=== PATIENT | female | born 1980 | race Caucasian/White ===

== ENCOUNTER 2016-12-19 22:10 | Emergency (ER) | payer OTHER ==
[~2016-12-19] VITALS: Ht 167.6 cm; Wt 140.6 kg
[~2016-12-19 22:10] MED LIST: AMOXICILLIN875 MG PO; BACTRIM DS TAB1 EACH PO; DICLOXACILLIN500 MG PO; DIFLUCAN150 MG PO; GUAIATUSSIN AC118 ML PO; HUMULIN N100 UNIT/1 SQ; HUMULIN N100 UNIT/1 SUB-Q; LANTUS SOL100 UNIT/1 SUB-Q; LISINOPRIL10 MG PO; LOSARTAN-HCTZ1 EACH PO; METFORMIN HCL1000 MG PO; MOTRIN800 MG PO; NORCO 5-325 TA1 EACH PO; NOVOLOG FL100 UNIT/1 SUB-Q; NOVOLOG100 UNIT/1 SUB-Q; NOVOLOG100 UNITS/ IV; NOVOLOG100 UNITS/ SUB-Q; PERCOCET 5-3251 EACH PO; PREDNISONE20 MG PO; PRENATAL FORMU1 EACH PO; PROCARDIA XL30 MG PO; PROCARDIA XL60 MG PO; QVAR7.3 G1 INH; QVAR7.3 GM INH; TESSALON PERLE100 MG PO; VENTOLIN HFA18 GM INH; ZOFRAN ODT4 MG PO
== END 2016-12-19 23:33 | disposition home or self-care (01) ==
LOC: ED 22:10
DX: S00.83XA Contusion of other part of head, initial encounter (principal); I10 Essential (primary) hypertension; E11.9 Type 2 diabetes mellitus without complications; F41.9 Anxiety disorder, unspecified; Z98.51 Tubal ligation status; Z91.040 Latex allergy status; Z91.018 Allergy to other foods; Z88.8 Allergy status to other drugs, medicaments and biological substances; Z79.84 Long term (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 of oral hypoglycemic drugs; Z79.4 Long term (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; Z79.899 Other long term (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; W50.0XXA Accidental hit or strike by another person, initial encounter
CPT/HCPCS: 70150; 99283

== ENCOUNTER 2017-11-05 21:20 | Emergency (ER) | payer OTHER ==
[~2017-11-05] VITALS: Ht 167.6 cm; Wt 122.5 kg
[~2017-11-05 21:20] MED LIST changes: +TRAMADOL HCL50 MG PO
[2017-11-05] MEDS ORDERED: NORCO 5-325 TA1 EACH PO (23:15)
== END 2017-11-05 23:37 | disposition home or self-care (01) ==
LOC: ED 21:20
DX: N76.0 Acute vaginitis (principal); I10 Essential (primary) hypertension; E11.9 Type 2 diabetes mellitus without complications; E66.9 Obesity, unspecified; F41.9 Anxiety disorder, unspecified; Z88.8 Allergy status to other drugs, medicaments and biological substances; Z91.018 Allergy to other foods; Z91.040 Latex allergy status; Z79.899 Other long term (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; Z79.51 Long term (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 of inhaled steroids; Z79.4 Long term (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
CPT/HCPCS: 87529; 99283

== ENCOUNTER 2018-10-06 03:54 | Emergency (ER) | payer OTHER ==
[~2018-10-06] VITALS: Ht 167.6 cm; Wt 117.9 kg
--- OUTSIDE RECORDS SUMMARY | 2018-10-06 03:56 | XMS ---
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 [place] has no Care Guidelines for this patient. Cezar VISIT COUNT (12 MO.) 2 [facility] TOTAL 2 NOTE: Visits indicate total known visits. ED/C VISIT TRACKING (12 MO.) 10/06/2018 03:54 [facility] [place] TYPE: Emergency COMPLAINT: - L EAR PAIN 11/05/2017 21:22 [facility] [place] TYPE: Emergency COMPLAINT: - GENITAL ISSUE DIAGNOSES: - Pelvic and perineal pain - Anxiety disorder, unspecified - Acute vaginitis - Essential (primary) hypertension - Allergy to other foods - [facility] (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 of inhaled steroids - Obesity, unspecified - Latex allergy status - Type 2 diabetes mellitus without complications - Allergy status to other drugs, medicaments and biological substances status - [facility] (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 - Other assisted (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 INPATIENT VISIT TRACKING (12 MO.) No inpatient visits to display in this time frame [email or web address]
[2018-10-06] MEDS ORDERED: NEOMYCIN-POLYMY10 ML OTIC (04:14)
== END 2018-10-06 04:39 | disposition home or self-care (01) ==
LOC: ED 03:54
DX: H60.92 Unspecified otitis externa, left ear (principal); I10 Essential (primary) hypertension; E11.9 Type 2 diabetes mellitus without complications; F41.9 Anxiety disorder, unspecified; E66.9 Obesity, unspecified; Z88.8 Allergy status to other drugs, medicaments and biological substances; Z91.040 Latex allergy status; Z79.899 Other long term (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
CPT/HCPCS: 99282

== ENCOUNTER 2018-10-18 20:01 | Emergency (ER) | payer OTHER ==
[~2018-10-18] VITALS: Ht 167.6 cm; Wt 125.2 kg
[~2018-10-18 20:01] MED LIST changes: +NEOMYCIN-POLYMY10 ML OTIC
--- OUTSIDE RECORDS SUMMARY | 2018-10-18 20:04 | XMS ---
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 [place] has no Care Guidelines for this patient. Cezar VISIT COUNT (12 MO.) [address] [facility] [address] TOTAL 3 NOTE: Visits indicate total known visits. ED/C VISIT TRACKING (12 MO.) 10/18/2018 20:02 [facility] [place] TYPE: Emergency COMPLAINT: - SPIDER BITE/R ANKLE 10/06/2018 03:54 [facility] [place] TYPE: Emergency COMPLAINT: - L EAR PAIN DIAGNOSES: - Other oysterman (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 - Type 2 diabetes mellitus without complications - Unspecified otitis externa, left ear - Latex allergy status - Allergy status to other drugs, medicaments and biological substances status - Essential (primary) hypertension - Anxiety disorder, unspecified - Obesity, unspecified 11/05/2017 21:22 [facility] [place] TYPE: Emergency COMPLAINT: - GENITAL ISSUE DIAGNOSES: - Pelvic and perineal pain - Anxiety disorder, unspecified - Acute vaginitis - Essential (primary) hypertension - Allergy to other foods - oysterman (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 of inhaled steroids - Obesity, unspecified - Latex allergy status - Type 2 diabetes mellitus without complications - Allergy status to other drugs, medicaments and biological substances status - oysterman (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 - Other oysterman (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 INPATIENT VISIT TRACKING (12 MO.) No inpatient visits to display in this time frame [id number]
[2018-10-18] MEDS ORDERED: DOXYCYCLINE HY100 MG PO (20:37)
[2018-10-18] MEDS ORDERED: TRAMADOL HCL50 MG PO (20:37)
== END 2018-10-18 20:45 | disposition home or self-care (01) ==
LOC: ED 20:01
DX: M79.81 Nontraumatic hematoma of soft tissue (principal); L08.89 Other specified local infections of the skin and subcutaneous tissue; I10 Essential (primary) hypertension; E11.9 Type 2 diabetes mellitus without complications; E66.9 Obesity, unspecified; Z88.8 Allergy status to other drugs, medicaments and biological substances; Z91.040 Latex allergy status; Z79.899 Other long term (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
CPT/HCPCS: 10140; 99283-25

== ENCOUNTER 2019-04-05 16:43 | Emergency (ER) | payer OTHER ==
[~2019-04-05] VITALS: Ht 167.6 cm; Wt 125.2 kg
[~2019-04-05 16:43] MED LIST changes: +DOXYCYCLINE HY100 MG PO
--- OUTSIDE RECORDS SUMMARY | 2019-04-05 16:46 | XMS ---
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 Care History Medical/Surgical 10/19/2018 [facility] - Patient is currently established with [facility]. If patient is seen in the ED during business hours. Please contact CHWs at [facility]. Care Recommendation: This patient has had 5 or more Emergency Department visits in the last 12 months.\T\nbsp; Patient requires education on the scope and purpose of the ED as an acute care provider not a Primary Care Provider and should not be utilized for chronic conditions.\T\nbsp; These are guidelines and the provider should exercise clinical judgment when providing care. E.D. VISIT COUNT (12 MO.) 3 [facility] TOTAL 3 NOTE: Visits indicate total known visits. ED/UCC VISIT TRACKING (12 MO.) 04/05/2019 16:44 [facility] [place] TYPE: Emergency COMPLAINT: - SKIN ISSUES ON ABDOMEN 10/18/2018 20:02 [facility] [place] TYPE: Emergency COMPLAINT: - R ANKLE PN DIAGNOSES: - Essential (primary) hypertension - 1 Type 2 diabetes mellitus without complications - Nontraumatic hematoma of soft tissue - Other alf (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 - Obesity, unspecified - Oth local infections of the skin and subcutaneous tissue - Allergy status to oth drug/meds/biol subst status - Blister (nonthermal), right ankle, initial encounter - Latex allergy status 10/06/2018 03:54 [facility] [place] TYPE: Emergency COMPLAINT: - L EAR PAIN DIAGNOSES: - Other alf (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 - 1 Type 2 diabetes mellitus without complications - Unspecified otitis externa, left ear - Latex allergy status - Allergy status to oth drug/meds/biol subst status - Essential (primary) hypertension - Anxiety disorder, unspecified - Obesity, unspecified INPATIENT VISIT TRACKING (12 MO.) No inpatient visits to display in this time frame [email or web address]
[2019-04-05] MEDS ORDERED: LANTUS100 UNITS/ SUB-Q (19:16)
[2019-04-05] MEDS ORDERED: DOXYCYCLINE HY100 MG PO (19:18)
== END 2019-04-05 19:35 | disposition home or self-care (01) ==
LOC: ED 16:43
PROC: 0W9F0ZZ Drainage of Abdominal Wall, Open Approach (ICD-10-PCS; principal; 2019-04-05)
DX: L02.211 Cutaneous abscess of abdominal wall (principal); I10 Essential (primary) hypertension; E11.9 Type 2 diabetes mellitus without complications; Z91.048 Other nonmedicinal substance allergy status; Z91.018 Allergy to other foods; Z91.040 Latex allergy status; Z88.8 Allergy status to other drugs, medicaments and biological substances
CPT/HCPCS: 10060; 99283-25

== ENCOUNTER 2019-04-13 07:12 | Day surgery (SDC) | payer OTHER ==
[~2019-04-13] VITALS: Ht 167.6 cm; Wt 122.5 kg
[~2019-04-13 07:12] MED LIST changes: +GABAPENTIN300 MG PO; +HYDROCODON-ACE1 EAC8 PO; +LANTUS100 UNITS/ SUB-Q
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
--- NOTE | 2019-04-13 10:09 | NUR ---
ICED WATER GIVEN. CALL LIGHT WITHIN REACH. PATIENT PLACES GLASSES BACK ON HER FACE.
--- NOTE | 2019-04-13 12:06 | NUR ---
PATIENT IS UP TO THE BATHROOM. PATIENT AMBULATES WELL AND REPORTS SUCCESSFUL VOID. PATIENT IS BACK IN HER ROOM, SITTING ON THE EDGE OF THE BED. DISCHARGE INSTRUCTIONS ARE GIVEN AND SHE VERBALIZES UNDERSTANDING. PATIENT IS GETTING DRESSED. PATIENT'S MOTHER NOTIFIED SHE IS READY FOR HER TO COME PICK HER UP.
--- NOTE | 2019-04-13 12:11 | OR ---
[facility] [address] [place], [place] [address] Signed DATE OF OPERATION: 04/13/2019 SURGEON: Ben Damon MD PREOPERATIVE DIAGNOSIS: Right lower quadrant abdominal wall subcutaneous abscess. POSTOPERATIVE DIAGNOSIS: Right lower quadrant abdominal wall subcutaneous abscess. PROCEDURES PERFORMED: 1. Incision and drainage with sharp debridement of right lower quadrant abdominal wall abscess. 2. Deep wound cultures. ESTIMATED BLOOD LOSS: None. INDICATIONS: Heather is a 39-year-old, obese, uncontrolled diabetic female, who has decided to discontinue all her medications. 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 She went into emergency room recently and had a right lower quadrant abdominal wall overlying her large pannus, incised and drained by ER doctor. She was sent home on doxycycline. She had been to her primary care provider. There was black necrotic skin and continued thick malodorous fluid coming from the wound. Consequently, she was asked to see me expeditiously in my office. We added her on in that day. She had been trying to use Tylenol and ibuprofen for pain. It was okay during the day, but at night, she was having a hard time sleeping because of the pain. Consequently, we did give her some hydrocodone. I explained to Heather we would need to take her to the operating room to sharply debride all this tissue and take our deep wound cultures. The wound would of course be left open to heal secondarily. She is quite familiar with this whole process. There is risk to the surgery including, but not limited to bleeding, infection, scarring, change in contour of the skin as well as recurrent abscesses in the same or other locations. She had expressed understanding and wished to proceed. PROCEDURE NOTE: I met with Heather in our preop area. Her worked last night, so he was not able to come this morning. We both identified the abscess in the right lower quadrant and marked that appropriately. After this, Heather was taken in the operating room and Electronically Signed By: BEN DAMON MD 04/13/19 1211 PATIENT NAME: HEATHER KUO OPERATIVE REPORT DATE OF : 76 REPORT #: [id number] PHYSICIAN: BEN DAMON MD PCP: PRATEEK JENKINS MD REPORT IS CONFIDENTIAL AND NOT TO BE RELEASED WITHOUT AUTHORIZATION [facility] [address] [place], [place] [address] Signed placed in the supine position under general LMA anesthesia. She was given preoperative antibiotics along with subcutaneous heparin. SCDs were utilized. She was then prepped and draped in usual sterile fashion. We debrided all the black necrotic skin sharply with a #15 blade knife. Underneath, she had thick mucoid mildly malodorous fluid. We took deep wound cultures. The wound was irrigated and suctioned out until clear. She had nice granulation tissue except in the center of the wound. We debrided sharply with a 20 blade knife until that adipose tissue was removed and bleeding. We then injected local anesthetic in and around the wound. The wound was covered with saline moist gauze, dry 4 x 4 gauze, a dry ABD, and some tape. She was then transferred to her hospital bed and taken into recovery room in stable condition. Ben Damon MD ALB/MODL /[id number] cc: MD Prateek Alaniz MD Copies: BEN DAMON MD, MALCOLM MD ~ Electronically Signed By: BEN DAMON MD 04/13/19 1211 PATIENT NAME: HEATHER KUO OPERATIVE REPORT DATE OF : 76 REPORT #: [id number] PHYSICIAN: BEN DAMON MD PCP: PRATEEK JENKINS MD REPORT IS CONFIDENTIAL AND NOT TO BE RELEASED WITHOUT AUTHORIZATION
--- NOTE | 2019-04-13 13:40 | NUR ---
PT ALERT, ORIENTED AND PLEASANT. PT HAD FEW QUESTIONS, REQUESTED PRAYER. HER MOTHER WILL COME FOR HER. PT REQUESTED PRAYER, WILL FOLLOW NEEDED
== END 2019-04-13 12:10 | disposition home or self-care (01) ==
LOC: DS 07:12
PROVIDERS: Colon & Rectal Surgery
PROC: 0JB80ZZ Excision of Abdomen Subcutaneous Tissue and Fascia, Open Approach (ICD-10-PCS; principal; 2019-04-13 08:30)
DX: L02.211 Cutaneous abscess of abdominal wall (principal); I10 Essential (primary) hypertension; E66.9 Obesity, unspecified; J44.9 Chronic obstructive pulmonary disease, unspecified; E11.29 Type 2 diabetes mellitus with other diabetic kidney complication; K21.9 Gastro-esophageal reflux disease without esophagitis; M19.041 Primary osteoarthritis, right hand; M19.042 Primary osteoarthritis, left hand; F32.9 Major depressive disorder, single episode, unspecified; F41.9 Anxiety disorder, unspecified; G43.909 Migraine, unspecified, not intractable, without status migrainosus; Z91.040 Latex allergy status; Z91.19 Patient's noncompliance with other medical treatment and regimen; Z79.2 Long term (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 of antibiotics; Z79.899 Other long term (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
CPT/HCPCS: 00400; 87070; 87075; 87077; 87186; 87205; J1100; J1885; J1956; J2405; J2704; J3010; J7120

== ENCOUNTER 2019-12-16 14:26 | Emergency (ER) | payer OTHER ==
[~2019-12-16] VITALS: Ht 167.6 cm; Wt 136.1 kg
[~2019-12-16 14:26] MED LIST changes: +KEFLEX500 MG PO
--- OUTSIDE RECORDS SUMMARY | 2019-12-16 14:30 | XMS ---
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 - Has Care Guidelines CARE PROVIDERS SURENDRA JENKINS Internal Medicine 10/19/2018-Current PHONE: Unknown [place] has no Care Guidelines for this patient. Care History Medical/Surgical 09/26/2019 [facility] Patient stated she went to ED due to PCP canceling scheduled follow up visit on\T\nbsp;09/26/2019.\T\nbsp; Left voice mail for return call. 10/19/2018 [facility] - Patient is currently established with [facility]. If patient is seen in the ED during business hours. Please contact CHWs at [facility]. Care Recommendation: This patient has had 5 [...] care. E.D. VISIT COUNT (12 MO.) [address] [facility] TOTAL 3 NOTE: Visits indicate total known visits. ED/UCC VISIT TRACKING (12 MO.) 12/16/2019 14:27 [facility] [place] TYPE: Emergency COMPLAINT: - CHEST PAIN 09/24/2019 19:02 [facility] [place] TYPE: Emergency COMPLAINT: - SKIN PROBLEM,EAR PAIN DIAGNOSES: - Anxiety disorder, unspecified - Unspecified otitis externa, right ear - Allergy status to other drugs, medicaments and biological sub - Cutaneous abscess of neck - Personal history of nicotine dependence - Latex allergy status - Essential (primary) hypertension - Type 2 diabetes mellitus without complications - Cervicalgia 04/05/2019 16:[address] [facility] [place] TYPE: Emergency COMPLAINT: - SKIN ISSUES ON ABDOMEN DIAGNOSES: - Allergy to other foods - Type 2 diabetes mellitus without complications - Essential (primary) hypertension - Other nonmedicinal substance allergy status - Lower abdominal pain, unspecified - Allergy status to other drugs, medicaments and biological sub - Cutaneous abscess of abdominal wall - Latex allergy status INPATIENT VISIT TRACKING (12 MO.) No inpatient visits to display in this time frame [id number]
[2019-12-16] MEDS ORDERED: LOSARTAN-HCTZ1 EACH PO (16:24)
[2019-12-16] MEDS ORDERED: LISINOPRIL5 MG PO (16:27)
--- NOTE | 2019-12-17 12:57 | EKG ---
[facility] [address] [facility] [place] [address] Signed Normal sinus rhythm Normal ECG No previous ECGs available Confirmed by KAIT MERINO MD ([id number]) on 12/17/2019 12:57:12 PM Electronically Signed By: KAIT MERINO MD 12/17/19 1257 PATIENT NAME: WILBERT KUO Electrocardiogram DATE OF : 76 PHYSICIAN: KAIT MERINO MD REPORT #: [id number] REPORT IS CONFIDENTIAL AND NOT TO BE RELEASED WITHOUT AUTHORIZATION
== END 2019-12-16 16:45 | disposition home or self-care (01) ==
LOC: ED 14:26
DX: R07.89 Other chest pain (principal); I10 Essential (primary) hypertension; E11.65 Type 2 diabetes mellitus with hyperglycemia; Z87.891 Personal history of nicotine dependence; Z88.8 Allergy status to other drugs, medicaments and biological substances; Z91.040 Latex allergy status; Z91.018 Allergy to other foods; Z79.899 Other long term (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
CPT/HCPCS: 71045; 80053; 84484; 85025; 85379; 93005; 93010; 99285-25

== ENCOUNTER 2020-05-24 16:22 | Emergency (ER) | payer OTHER ==
[~2020-05-24] VITALS: Ht 167.6 cm; Wt 108.9 kg
[~2020-05-24 16:22] MED LIST changes: +LISINOPRIL5 MG PO; +PYRIDIUM100 MG PO
--- OUTSIDE RECORDS SUMMARY | 2020-05-24 16:24 | XMS ---
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 Care History Medical/Surgical 02/23/2020 [facility] Patient has long history of canceling/rescheduling Clinic appointments.\T\nbsp; Left voice mail to follow up with PCP Dr. Chapman 12/20/2019 [facility] Patient has follow up visit with Dr. Chapman on 01/02/2020 09/26/2019 [facility] Patient stated she went to ED due to PCP canceling scheduled follow up visit on\T\nbsp;09/26/2019.\T\nbsp; Left voice mail for return call. E.D. VISIT COUNT (12 MO.) 4 [facility]. TOTAL 4 NOTE: Visits indicate total known visits. ED/UCC VISIT TRACKING (12 MO.) 05/24/2020 16:[address] [facility] [place] TYPE: Emergency COMPLAINT: - BREAST PAIN/SWELLING 02/22/2020 15:40 [facility] [place] TYPE: Emergency COMPLAINT: - POSS UTI DIAGNOSES: - Anxiety disorder, unspecified - Type 2 diabetes mellitus without complications - Dysuria - Urinary tract infection, site not specified - Allergy status to other drugs, medicaments and biological substances - Latex allergy status - Essential (primary) hypertension - Localized edema - Other alf (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 - Obesity, unspecified 12/16/2019 14:27 [facility] [place] TYPE: Emergency COMPLAINT: - CHEST PAIN DIAGNOSES: - Allergy status to other drugs, medicaments and biological substances - Allergy to other foods - Other alf (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 - Type 2 diabetes mellitus with hyperglycemia - Personal history of nicotine dependence - Other chest pain - Latex allergy status - Essential (primary) hypertension 09/24/2019 19:02 [facility] [place] TYPE: Emergency COMPLAINT: - SKIN PROBLEM,EAR PAIN DIAGNOSES: - Anxiety disorder, unspecified - Unspecified otitis externa, right ear - Allergy status to other drugs, medicaments and biological substances - Cutaneous abscess of neck - Personal history of nicotine dependence - Latex allergy status - Essential (primary) hypertension - Type 2 diabetes mellitus without complications - Cervicalgia INPATIENT VISIT TRACKING (12 MO.) No inpatient visits to display in this time frame [id number]
[2020-05-24] MEDS ORDERED: KEFLEX500 MG PO (18:18)
== END 2020-05-24 18:45 | disposition home or self-care (01) ==
LOC: ED 16:22
DX: N61.0 Mastitis without abscess (principal); I10 Essential (primary) hypertension; E11.9 Type 2 diabetes mellitus without complications; E66.9 Obesity, unspecified; Z87.891 Personal history of nicotine dependence; Z88.8 Allergy status to other drugs, medicaments and biological substances; Z91.040 Latex allergy status; Z79.899 Other long term (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
CPT/HCPCS: 36415; 76642; 80048; 85025; 99284-25

== ENCOUNTER 2020-10-01 15:29 | Emergency (ER) | payer OTHER ==
[~2020-10-01] VITALS: Ht 167.6 cm; Wt 116.1 kg
[~2020-10-01 15:29] MED LIST changes: +ACETAMINOPHEN500 MG PO; +BASAGLAR K100 UNIT/1 SUB-Q; +BLOOD GLUCOSE1 EAC1 MISC; +GLUCOSE TEST S1 EACH MISC; +HYDROCODON-ACE1 EA10 PO; +IBUPROFEN600 MG PO; +INSULIN AS100 UNIT/3 SUB-Q; +[UNRECOGNIZED DRUG - OTHER] MISC; +[UNRECOGNIZED DRUG - OTHER] MISC
--- OUTSIDE RECORDS SUMMARY | 2020-10-01 15:32 | XMS ---
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 Care History Medical/Surgical 02/23/2020 [facility] Patient has long history of canceling/rescheduling Clinic appointments.\T\nbsp; Left voice mail to follow up with PCP Dr. Chapman 12/20/2019 [facility] Patient has follow up visit with Dr. Chapman on 01/02/2020 09/26/2019 [facility] Patient stated she went to ED due to PCP canceling scheduled follow up visit on\T\nbsp;09/26/2019.\T\nbsp; Left voice mail for return call. E.D. VISIT COUNT (12 MO.) 5 [facility]. TOTAL 5 NOTE: Visits indicate total known visits. 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 - Personal history of nicotine dependence - Mastitis without abscess - Latex allergy status - Type 2 diabetes mellitus without complications - Essential (primary) hypertension - Allergy status to other drugs, medicaments and biological substances 02/22/2020 15:[facility] [place] [facility]: Emergency COMPLAINT: - POSS UTI DIAGNOSES: - Anxiety disorder, unspecified - Type 2 diabetes mellitus without complications - Dysuria - Urinary tract infection, site not specified - Allergy status to other drugs, medicaments and biological substances - Latex allergy status - Essential (primary) hypertension - Localized edema - 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 (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 - Obesity, unspecified [facility]2019 [facility] COMPLAINT: - CHEST PAIN DIAGNOSES: - Allergy status to other drugs, medicaments and biological substances - Allergy to other foods - Other skilled nursing (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 - Type 2 diabetes mellitus with hyperglycemia - Personal history of nicotine dependence - Other chest pain - Latex allergy status - Essential (primary) hypertension INPATIENT VISIT TRACKING (12 MO.) 09/15/2020 08:25 [facility] [place] TYPE: Observation COMPLAINT: - R BREAST ABSCESS, DIABETES DIAGNOSES: - Essential (primary) hypertension - Type 2 diabetes mellitus with hyperglycemia - Abscess of the breast and nipple - Morbid (severe) obesity due to excess calories - Unspecified asthma, uncomplicated - Anxiety disorder, unspecified [id number]
[2020-10-01] MEDS ORDERED: GLIPIZIDE ER5 MG PO (15:44)
--- NOTE | 2020-10-01 17:17 | EKG ---
[facility] [address] [facility] [place], [place] [address] Signed Normal sinus rhythm Normal ECG Confirmed by MITCHELL ADAIR DO ([id number]) on 10/01/2020 5:17:04 PM Electronically Signed By: MITCHELL ADAIR DO 10/01/20 1717 PATIENT NAME: WILBERT KUO Electrocardiogram DATE OF : 76 PHYSICIAN: MITCHELL ADAIR DO REPORT #: [id number] REPORT IS CONFIDENTIAL AND NOT TO BE RELEASED WITHOUT AUTHORIZATION
== END 2020-10-01 19:51 | disposition short-term general hospital (02) ==
LOC: ED 15:29
DX: R07.89 Other chest pain (principal); R77.8 Other specified abnormalities of plasma proteins; E11.65 Type 2 diabetes mellitus with hyperglycemia; Z20.822 Contact with and (suspected) exposure to COVID-19; I10 Essential (primary) hypertension; E11.9 Type 2 diabetes mellitus without complications; E66.9 Obesity, unspecified; F41.9 Anxiety disorder, unspecified; Z87.891 Personal history of nicotine dependence; Z88.8 Allergy status to other drugs, medicaments and biological substances; Z91.040 Latex allergy status; Z79.899 Other long term (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; Z79.4 Long term (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
CPT/HCPCS: 71045; 80053; 83735; 84484; 85025; 85379; 93005; 93010; 96374; 99285-25; C9803; J1885; U0003

== ENCOUNTER 2020-11-01 16:36 | Emergency (ER) | payer OTHER ==
[~2020-11-01] VITALS: Ht 167.6 cm; Wt 118.8 kg
[~2020-11-01 16:36] MED LIST changes: +ATORVASTATIN CA40 MG PO; +BRILINTA90 MG PO; +FENOFIBRATE54 MG PO; +GLIPIZIDE ER5 MG PO; +INSULIN LI100 UNIT/2 SUB-Q; +METOPROLOL TART25 MG PO; +NITROGLYCERIN0.4 MG SL
--- OUTSIDE RECORDS SUMMARY | 2020-11-01 16:38 | XMS ---
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 Care History Medical/Surgical 02/23/2020 [facility] Patient has long history of canceling/rescheduling Clinic appointments.\T\nbsp; Left voice mail to follow up with PCP Dr. Chapman 12/20/2019 [facility] Patient has follow up visit with Dr. Chapman on 01/02/2020 09/26/2019 [facility] Patient stated she went to ED due to PCP canceling scheduled follow up visit on\T\nbsp;09/26/2019.\T\nbsp; Left voice mail for return call. [facility] ([facility] MO[facility] [place] TOTAL 8 NOTE: Visits indicate total known visits. 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 - Allergy status to other drugs, medicaments and biological substances - Latex allergy status - Other retirement (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 - Obesity, unspecified - Other specified abnormalities of plasma proteins - Type 2 diabetes mellitus with hyperglycemia - Essential (primary) hypertension - Type 2 diabetes mellitus without complications - Anxiety disorder, unspecified 09/15/2020 08:24 [facility] [place] TYPE: Emergency COMPLAINT: - R BREAST/RIB PAIN, POSS UTI 05/24/2020 16:23 [facility] [place] TYPE: Emergency COMPLAINT: - BREAST PAIN/SWELLING DIAGNOSES: - Obesity, unspecified - 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 - Personal history of nicotine dependence - Mastitis without abscess - Latex allergy status - Allergy status to other drugs, medicaments and biological substances - Type 2 diabetes mellitus without complications - Essential (primary) hypertension - Allergy status to other drugs, medicaments and biological substances 02/22/2020 15:40 [facility] [place] TYPE: Emergency COMPLAINT: - POSS UTI DIAGNOSES: - Anxiety disorder, unspecified - Type 2 diabetes mellitus without complications - Dysuria - Urinary tract infection, site not specified - Allergy status to other drugs, medicaments and biological substances - Latex allergy status - Essential (primary) hypertension - Localized edema - Other retirement (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 - Obesity, unspecified 12/16/2019 14:27 [facility] [place] TYPE: Emergency COMPLAINT: - CHEST PAIN DIAGNOSES: - Allergy status to other drugs, medicaments and biological substances - Allergy to other foods - Other retirement (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 - Type 2 diabetes mellitus with hyperglycemia - Personal history of nicotine dependence - Other chest pain - Latex allergy status - Essential (primary) hypertension INPATIENT VISIT TRACKING (12 MO.) 10/22/2020 10:30 [facility] [place] TYPE: Observation COMPLAINT: - SOB / CHF DIAGNOSES: - Chest pain, unspecified - Atherosclerotic heart disease of [place] coronary artery with unspecified angina pectoris - terminal clerk (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 of opiate analgesic - Presence of coronary angioplasty implant and graft - Body mass index [BMI]40.0-44.9, adult - terminal clerk (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 - Obesity, unspecified - Essential (primary) hypertension - Type 2 diabetes mellitus without complications - Unspecified asthma, uncomplicated 10/05/2020 13:29 [facility] [place] [facility] Intensive Care DIAGNOSES: - Chest pain, unspecified - ST elevation (STEMI) myocardial infarction of unspecified site - Other specified abnormalities of plasma proteins - Chest Pain 10/01/2020 21:10 [facility] DIAGNOSES: - Abscess of the breast and nipple - Non-ST elevation (NSTEMI) myocardial infarction - NSTEMI 09/15/2020 08:25 [facility] [place] TYPE: Observation COMPLAINT: - R BREAST ABSCESS, DIABETES DIAGNOSES: - Essential (primary) hypertension - Type 2 diabetes mellitus with hyperglycemia - Abscess of the breast and nipple - Morbid (severe) obesity due to excess calories - Unspecified asthma, uncomplicated - Anxiety disorder, unspecified [email or web address]
[2020-11-01] MEDS ORDERED: ZITHROMAX250 MG PO (18:56)
[2020-11-01] MEDS ORDERED: PREDNISONE20 MG PO (18:56)
[2020-11-01] MEDS ORDERED: VENTOLIN HFA18 GM INH (18:58)
--- NOTE | 2020-11-02 11:40 | EKG ---
[facility] [address] [facility] [place] [address] Signed Normal sinus rhythm Low voltage QRS Septal infarct , age undetermined Abnormal ECG When compared with ECG of 22-OCT-2020 10:44, Septal infarct is now present Confirmed by MITCHELL ADAIR DO ([id number]) on 11/02/2020 11:40:08 AM Electronically Signed By: MITCHELL ADAIR DO 11/02/20 1140 PATIENT NAME: WILBERT KUO Electrocardiogram DATE OF : 76 PHYSICIAN: MITCHELL ADAIR DO REPORT #: [id number] REPORT IS CONFIDENTIAL AND NOT TO BE RELEASED WITHOUT AUTHORIZATION
== END 2020-11-01 19:10 | disposition home or self-care (01) ==
LOC: ED 16:36
DX: J45.998 Other asthma (principal); E11.65 Type 2 diabetes mellitus with hyperglycemia; Z20.822 Contact with and (suspected) exposure to COVID-19; I10 Essential (primary) hypertension; E66.9 Obesity, unspecified; Z87.891 Personal history of nicotine dependence; Z88.8 Allergy status to other drugs, medicaments and biological substances; Z91.040 Latex allergy status; Z79.899 Other long term (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; Z79.4 Long term (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
CPT/HCPCS: 71045; 80053; 83880; 84484; 85025; 93005; 93010; 94640; 96374; 99285-25; C9803; J1815; J7512; U0003

== ENCOUNTER 2021-01-11 22:54 | Emergency (ER) | payer OTHER ==
[~2021-01-11] VITALS: Ht 167.6 cm; Wt 117.9 kg
[~2021-01-11 22:54] MED LIST changes: +ZITHROMAX250 MG PO
--- OUTSIDE RECORDS SUMMARY | 2021-01-11 22:56 | XMS ---
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 Care History Medical/Surgical 02/23/2020 [facility] Patient has long history of canceling/rescheduling Clinic appointments.\T\nbsp; Left voice mail to follow up with PCP Dr. Chapman 12/20/2019 [facility] Patient has follow up visit with Dr. Chapman on 01/02/2020 09/26/2019 [facility] Patient stated she went to ED due to PCP canceling scheduled follow up visit on\T\nbsp;09/26/2019.\T\nbsp; Left voice mail for return call. E.D. V[facility] ([facility] MO.) [facility] TOTAL 8 NOTE: Visits indicate total known visits. 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 - Allergy status to other drugs, medicaments and biological substances - Latex allergy status - Other machine long goods helper (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 - Obesity, unspecified - [...] PAIN/SWELLING DIAGNOSES: - Obesity, unspecified - Other machine long goods helper (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 - Personal history of [...] (primary) hypertension - Localized edema - Other long-term (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 - Obesity, unspecified INPATIENT VISIT TRACKING (12 MO.) 10/22/2020 10:30 [facility] [place] TYPE: Observation COMPLAINT: - SOB / CHF DIAGNOSES: - Chest pain, unspecified - Atherosclerotic heart disease of [place] coronary artery with unspecified angina pectoris - 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 - Presence of coronary angioplasty implant and graft - Body mass index [BMI]40.0-44.9, adult - MCFP (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 - Obesity, unspecified - Essential (primary) hypertension - Type 2 diabetes mellitus without complications - Unspecified asthma, uncomplicated [facility]05[facility]2020 [facility] [place] [facility] DIAGNOSES: - Chest pain, unspecified - ST elevation (STEMI) myocardial infarction of unspecified site - Other specified abnormalities of plasma proteins - Chest Pain 10/01/2020 21:10 [facility] DIAGNOSES: - Abscess [...] Unspecified asthma, uncomplicated - Anxiety disorder, unspecified [email or web address]
--- NOTE | 2021-01-12 19:04 | EKG ---
[facility] [address] [facility] [facility] [place] [address] Signed Normal sinus rhythm Septal infarct present Low voltage QRS Borderline ECG When compared with ECG of 01-NOV-2020 16:52, Nonspecific T wave abnormality no longer evident in Lateral leads Confirmed by KAIT MERINO MD ([id number]) on 01/12/2021 7:04:17 PM Electronically Signed By: KAIT MERINO MD 01/12/21 1904 PATIENT NAME: WILBERT KUO Electrocardiogram DATE OF : 76 PHYSICIAN: KAIT MERINO MD REPORT #: [id number] REPORT IS CONFIDENTIAL AND NOT TO BE RELEASED WITHOUT AUTHORIZATION
== END 2021-01-12 02:48 | disposition home or self-care (01) ==
LOC: ED 22:54
DX: R07.9 Chest pain, unspecified (principal); I10 Essential (primary) hypertension; E11.9 Type 2 diabetes mellitus without complications; E66.9 Obesity, unspecified; I25.10 Atherosclerotic heart disease of native coronary artery without angina pectoris; I25.2 Old myocardial infarction; F17.200 Nicotine dependence, unspecified, uncomplicated; Z88.8 Allergy status to other drugs, medicaments and biological substances; Z91.040 Latex allergy status; Z79.899 Other long term (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; Z79.4 Long term (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
CPT/HCPCS: 71045; 80053; 83735; 84484; 85025; 85379; 93005; 93010; 99285-25

== ENCOUNTER 2021-09-03 16:38 | Emergency (ER) | payer OTHER ==
[~2021-09-03] VITALS: Ht 167.6 cm; Wt 117.9 kg
== END 2021-09-03 18:07 | disposition home or self-care (01) ==
LOC: ED 16:38
DX: S05.02XA Injury of conjunctiva and corneal abrasion without foreign body, left eye, initial encounter (principal); I10 Essential (primary) hypertension; E11.9 Type 2 diabetes mellitus without complications; E66.9 Obesity, unspecified; I25.2 Old myocardial infarction; F17.200 Nicotine dependence, unspecified, uncomplicated; Z88.8 Allergy status to other drugs, medicaments and biological substances; Z91.040 Latex allergy status; Z79.899 Other long term (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; Z79.4 Long term (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
CPT/HCPCS: 99283

== ENCOUNTER 2021-10-27 14:54 | Emergency (ER) | payer OTHER ==
[~2021-10-27] VITALS: Ht 167.6 cm; Wt 115.5 kg
[~2021-10-27 14:54] MED LIST changes: +CEPHALEXIN500 M1 PO
--- OUTSIDE RECORDS SUMMARY | 2021-10-27 15:02 | XMS ---
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 Care History Medical/Surgical 02/23/2020 [facility] Patient has long history of canceling/rescheduling Clinic appointments.\T\nbsp; Left voice mail to follow up with PCP Dr. Chapman 12/20/2019 [facility] Patient has follow up visit with Dr. Chapman on 01/02/2020 09/26/2019 [facility] Patient stated she went to ED due to PCP canceling scheduled follow up visit on\T\nbsp;09/26/2019.\T\nbsp; Left voice mail for return call. E.D. VISIT COUNT (12 MO.) 5 [facility]. TOTAL 5 NOTE: Visits indicate total known visits. ED/UCC VISIT TRACKING (12 MO.) 10/27/2021 14:[address] [facility] [place] TYPE: Emergency COMPLAINT: - CHEST PAIN, HEADACHE, RASH ON UPPER TORSO 10/26/2021 15:[address] 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 - Injury of conjunctiva and corneal abrasion without foreign body, left eye, initial encounter - Allergy status to other drugs, medicaments and biological substances 01/11/2021 22:54 [facility] [place] TYPE: Emergency COMPLAINT: - CHEST PAIN DIAGNOSES: - Atherosclerotic heart disease of [place] coronary artery without angina pectoris - Other nursing home (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 - Nicotine dependence, unspecified, uncomplicated - Old myocardial infarction - Allergy status to other drugs, medicaments and biological substances - Essential (primary) hypertension - 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 - Type 2 diabetes mellitus without complications - Latex allergy status - Chest pain, unspecified - Obesity, unspecified 11/01/2020 16:36 [facility] [place] TYPE: Emergency COMPLAINT: - CHEST PRESSURE,SHORTNESS OF BREATH DIAGNOSES: - Essential (primary) hypertension - penitentiary (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 - Other nursing home (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 - Shortness of breath - Personal history of nicotine dependence - Type 2 diabetes mellitus with hyperglycemia - Obesity, unspecified - Other asthma - Allergy status to other drugs, medicaments and biological substances - Latex allergy status INPATIENT VISIT TRACKING (12 MO.) No inpatient visits to display in this time frame [email or web address]
--- NOTE | 2021-10-28 14:07 | EKG ---
[facility] [address] [place] [address] Signed Sinus tachycardia Low voltage QRS Borderline ECG When compared with ECG of 26-OCT-2021 16:04, (Unconfirmed) No significant change was found Confirmed by KAIT MERINO MD ([id number]) on 10/28/2021 2:07:31 PM Electronically Signed By: KAIT MERINO MD 10/28/21 1407 PATIENT NAME: WILBERT KUO Electrocardiogram DATE OF : 76 PHYSICIAN: KAIT MERINO MD REPORT #: [id number] REPORT IS CONFIDENTIAL AND NOT TO BE RELEASED WITHOUT AUTHORIZATION
== END 2021-10-27 20:31 | disposition home or self-care (01) ==
LOC: ED 14:54
DX: R07.89 Other chest pain (principal); N39.0 Urinary tract infection, site not specified; I10 Essential (primary) hypertension; E11.9 Type 2 diabetes mellitus without complications; E66.9 Obesity, unspecified; I25.10 Atherosclerotic heart disease of native coronary artery without angina pectoris; I25.2 Old myocardial infarction; F17.200 Nicotine dependence, unspecified, uncomplicated; Z88.8 Allergy status to other drugs, medicaments and biological substances; Z91.040 Latex allergy status; Z79.899 Other long term (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
CPT/HCPCS: 36415; 71045; 71260; 84484; 85025; 85379; 93005; 93010; 99285-25; A9270; J0696; J7040; Q9967

== ENCOUNTER 2021-11-02 15:05 | Emergency (ER) | payer OTHER ==
[~2021-11-02] VITALS: Ht 167.6 cm; Wt 110.4 kg
--- OUTSIDE RECORDS SUMMARY | 2021-11-02 15:12 | XMS ---
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 Care History Medical/Surgical 10/29/2021 [facility] - Patient is currently established with [facility]. If patient is seen in the ED during business hours. Please contact CHWs at [facility]. Care Recommendation: This patient has had 5 or more Emergency Department visits in the last 12 months.\T\nbsp; Patient requires education on the scope and purpose of the ED as an acute care provider not a Primary Care Provider and should not be utilized for chronic conditions.\T\nbsp; These are guidelines and the provider should exercise clinical judgment when providing care. 02/23/2020 [facility] Patient has long history of canceling/rescheduling Clinic appointments.\T\nbsp; Left voice mail to follow up with PCP Dr. Jenkins 12/20/2019 [facility] Patient has follow up visit with Dr. Jenkins on 01/02/2020 E.D. VISIT COUNT (12 MO.) 5 [facility] TOTAL 5 NOTE: Visits indicate total known visits. ED/UCC VISIT TRACKING (12 MO.) 11/02/2021 15:05 [facility] [place] TYPE: Emergency COMPLAINT: - POSS ALLERGIC REACTION 10/27/2021 14:55 [facility] [place] TYPE: Emergency COMPLAINT: - CHEST PAIN, HEADACHE, RASH ON UPPER TORSO DIAGNOSES: - Obesity, unspecified - Allergy status to other drugs, medicaments and biological substances - Atherosclerotic heart disease of [place] coronary artery without angina pectoris - Other manager intermediate (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 - Other chest pain - Urinary tract infection, site not specified - Essential (primary) hypertension - Old myocardial infarction - Type 2 diabetes mellitus without complications - Latex allergy status - Nicotine dependence, unspecified, uncomplicated 10/26/2021 15:56 [facility] [place] TYPE: Emergency COMPLAINT: - L SIDE PAIN AND MUMBNESS DIAGNOSES: - Type 2 diabetes mellitus without complications - Atherosclerotic heart disease of [place] coronary artery without angina pectoris - Other chest pain - Urinary tract infection, site not specified - Nicotine dependence, unspecified, uncomplicated - Obesity, unspecified - Other usp (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 - Contact with and (suspected) exposure to COVID-19 - Old myocardial infarction - Essential (primary) hypertension - Allergy status to other drugs, medicaments and biological substances - Latex allergy status 09/03/2021 16:38 [facility] [place] TYPE: Emergency COMPLAINT: - EYE PROBLEM DIAGNOSES: - Obesity, unspecified - Essential (primary) hypertension - Old myocardial infarction - Nicotine dependence, unspecified, uncomplicated - Latex allergy status - Type 2 diabetes mellitus without complications - Other usp (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 - Other specified disorders of eye and adnexa - care home (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 - Injury of conjunctiva and corneal abrasion without foreign body, left eye, initial encounter - Allergy status to other drugs, medicaments and biological substances 01/11/2021 22:[address] [facility] [place] TYPE: Emergency COMPLAINT: - CHEST PAIN DIAGNOSES: - Atherosclerotic heart disease of 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
[2021-11-02] MEDS ORDERED: DOXYCYCLINE HY100 MG PO (19:31)
[2021-11-02] MEDS ORDERED: HYDROCODON-ACE1 EA10 PO (19:31)
--- NOTE | 2021-11-03 14:09 | EKG ---
[facility] [address] [facility] [place] [address] Signed Sinus tachycardia Low voltage QRS Borderline ECG When compared with ECG of 27-OCT-2021 15:15, No significant change was found Confirmed by KAIT MERINO MD ([id number]) on 11/03/2021 2:09:09 PM Electronically Signed By: KAIT MERINO MD 11/03/21 1409 PATIENT NAME: WILBERT KUO SABINO Electrocardiogram DATE OF : 76 PHYSICIAN: KAIT MERINO MD REPORT #: [id number] REPORT IS CONFIDENTIAL AND NOT TO BE RELEASED WITHOUT AUTHORIZATION
== END 2021-11-02 19:48 | disposition home or self-care (01) ==
LOC: ED 15:05
DX: M60.9 Myositis, unspecified (principal); Z20.822 Contact with and (suspected) exposure to COVID-19; I10 Essential (primary) hypertension; E11.9 Type 2 diabetes mellitus without complications; E66.9 Obesity, unspecified; I25.10 Atherosclerotic heart disease of native coronary artery without angina pectoris; I25.2 Old myocardial infarction; F17.200 Nicotine dependence, unspecified, uncomplicated; Z88.8 Allergy status to other drugs, medicaments and biological substances; Z91.040 Latex allergy status; Z79.899 Other long term (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
CPT/HCPCS: 36415; 70491; 71260; 80053; 82553; 85025; 86140; 86431; 87502; 93005; 93010; 99284-25; A9270; C9803; Q9967; U0003

== ENCOUNTER 2022-01-03 14:57 | Emergency (ER) | payer OTHER ==
[~2022-01-03] VITALS: Ht 167.6 cm; Wt 106.6 kg
--- OUTSIDE RECORDS SUMMARY | 2022-01-03 15:00 | XMS ---
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 Care History Medical/Surgical 10/29/2021 [facility] - Patient is currently established with [facility]. If patient is seen in the ED during business hours. Please contact CHWs at [facility]. Care Recommendation: This patient has had 5 or more Emergency Department visits in the last 12 months.\T\nbsp; Patient requires education on the scope and purpose of the ED as an acute care provider not a Primary Care Provider and should not be utilized for chronic conditions.\T\nbsp; These are guidelines and the provider should exercise clinical judgment when providing care. 02/23/2020 [facility] Patient has long history of canceling/rescheduling Clinic appointments.\T\nbsp; Left voice mail to follow up with PCP Dr. Jenkins 12/20/2019 [facility] Patient has follow up visit with Dr. Jenkins on 01/02/2020 E.D. VISIT COUNT (12 MO.) 7 [facility] TOTAL 7 NOTE: Visits indicate total known visits. ED/UCC VISIT TRACKING (12 MO.) 01/03/2022 14:57 [facility] [place] TYPE: Emergency COMPLAINT: - CHEST PAIN, L ARM NUMBNESS 11/22/2021 12:13 [facility] [place] TYPE: Emergency COMPLAINT: - NECK SWELLING, L SHOULDER PAIN, HEADACHE DIAGNOSES: - Obesity, unspecified - Chest pain, unspecified - Other snf (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 - Essential (primary) hypertension - Contact with and (suspected) exposure to COVID-19 - Allergy status to other drugs, medicaments and biological substances - Type 2 diabetes mellitus without complications - Old myocardial infarction - Nicotine dependence, unspecified, uncomplicated - Latex allergy status - Atherosclerotic heart disease of [place] coronary artery without angina pectoris - Anxiety disorder, unspecified - Other osteomyelitis, shoulder 11/02/2021 15:05 [facility] [place] TYPE: Emergency COMPLAINT: - POSS ALLERGIC REACTION DIAGNOSES: - Atherosclerotic heart disease of [place] coronary artery without angina pectoris - Myositis, unspecified - Allergy status to other drugs, medicaments and biological substances - Cervicalgia - Essential (primary) hypertension - Latex allergy status - Type 2 diabetes mellitus without complications - Other snf (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 - Obesity, unspecified - Contact with and (suspected) exposure to COVID-19 - Nicotine dependence, unspecified, uncomplicated - Old myocardial infarction 10/27/2021 14:55 [facility] [place] TYPE: Emergency COMPLAINT: - CHEST PAIN, HEADACHE, RASH ON UPPER TORSO DIAGNOSES: - Obesity, unspecified - Allergy status to other drugs, medicaments and biological substances - Atherosclerotic heart disease of [place] coronary artery without angina pectoris - Other snf (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 - Other chest pain [...] without complications - Atherosclerotic heart disease of [place] coronary artery without angina pectoris - Other chest pain - Urinary tract infection, site not specified - Nicotine dependence, unspecified, uncomplicated - Obesity, unspecified - Other snf (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 - Contact with and [...] 2 diabetes mellitus without complications - Other pcts (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 - Other specified disorders of eye and adnexa - custodial (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 - Injury of conjunctiva and corneal abrasion without foreign body, left eye, initial encounter - Allergy status to other drugs, medicaments and biological substances 01/11/2021 22:[address] [facility] [place] TYPE: Emergency COMPLAINT: - CHEST PAIN DIAGNOSES: - Atherosclerotic heart disease of [place] coronary artery without angina pectoris - Other snf (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 - Nicotine dependence, unspecified, uncomplicated - Old myocardial infarction - Allergy status to other drugs, medicaments and biological substances - Essential (primary) hypertension - custodial (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 - Type 2 diabetes mellitus without complications - Latex allergy status - Chest pain, unspecified - Obesity, unspecified INPATIENT VISIT TRACKING (12 MO.) 11/23/2021 01:10 [facility] TYPE: General Medicine DIAGNOSES: - Cutaneous abscess of chest wall - Type 2 diabetes mellitus with hyperglycemia - Essential (primary) hypertension - Bacteremia - Cutaneous abscess of right foot - Type 2 diabetes mellitus with unspecified complications - Atherosclerotic heart disease of [place] coronary artery without angina pectoris - Abscess of bursa, right ankle and foot - Other acute osteomyelitis, left shoulder - Left Sternal Osteomyelitis - Primary osteoarthritis, left shoulder - Methicillin resistant Staphylococcus aureus infection as the cause of diseases classified elsewhere - Methicillin resistant Staphylococcus aureus infection, unspecified site [email or web address]
[2022-01-03] MEDS ORDERED: VITAMIN B-650 MG PO (15:08)
[2022-01-03] MEDS ORDERED: DOXYCYCLINE MO100 MG PO (15:08)
[2022-01-03] MEDS ORDERED: INSULIN GL100 UNIT/2 SQ (15:08)
[2022-01-03] MEDS ORDERED: GABAPENTIN300 MG PO (15:08)
[2022-01-03] MEDS ORDERED: MUPIROCIN22 GM TOP (15:08)
[2022-01-03] MEDS ORDERED: DROPLET NE EAC MC (15:09)
--- NOTE | 2022-01-03 20:24 | EKG ---
[facility] [address] [facility] [facility] [place], [place] [address] Signed Normal sinus rhythm Normal ECG When compared with ECG of 02-NOV-2021 15:14, No significant change was found Confirmed by KAYLYNN MANTILLA MD ([id number]) on 01/03/2022 8:24:32 PM Electronically Signed By: KAYLYNN MANTILLA MD 01/03/222023 PATIENT NAME: WILBERT KUO SABINO Electrocardiogram DATE OF : 76 PHYSICIAN: KAYLYNN MANTILLA MD REPORT #: [id number] REPORT IS CONFIDENTIAL AND NOT TO BE RELEASED WITHOUT AUTHORIZATION
== END 2022-01-03 18:34 | disposition home or self-care (01) ==
LOC: ED 14:57
DX: R07.9 Chest pain, unspecified (principal); M86.9 Osteomyelitis, unspecified; I10 Essential (primary) hypertension; E11.9 Type 2 diabetes mellitus without complications; I25.10 Atherosclerotic heart disease of native coronary artery without angina pectoris; I25.2 Old myocardial infarction; F17.200 Nicotine dependence, unspecified, uncomplicated; E66.9 Obesity, unspecified; Z68.37 Body mass index [BMI] 37.0-37.9, adult; Z95.5 Presence of coronary angioplasty implant and graft; Z91.040 Latex allergy status; Z88.8 Allergy status to other drugs, medicaments and biological substances; Z91.018 Allergy to other foods; Z79.4 Long term (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
CPT/HCPCS: 36415; 71046; 80053; 83735; 84484; 85025; 93005; 93010; 99285-25; A9270

== ENCOUNTER 2022-01-24 14:58 | Emergency (ER) | payer OTHER ==
[~2022-01-24] VITALS: Ht 167.6 cm; Wt 106.6 kg
--- NOTE | ~2022-01-24 | EKG ---
[facility] [address] [place], [place] [address] Draft EK completed, results pending confirmation PATIENT NAME: AYAANWILBERT Electrocardiogram DATE OF : 76 PHYSICIAN: PRELIMINARY REPORT #: [id number] REPORT IS CONFIDENTIAL AND NOT TO BE RELEASED WITHOUT AUTHORIZATION
[~2022-01-24 14:58] MED LIST changes: +DOXYCYCLINE MO100 MG PO; +DROPLET NE EAC MC; +INSULIN GL100 UNIT/2 SQ; +LASIX20 MG PO; +MACROBID 100 M100 MG PO; +MUPIROCIN22 GM TOP; +VITAMIN B-650 MG PO
--- OUTSIDE RECORDS SUMMARY | 2022-01-24 15:00 | XMS ---
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 Care History Medical/Surgical 10/29/2021 [facility] - Patient is currently established with [facility]. If patient is seen in the ED during business hours. Please contact CHWs at [facility]. Care Recommendation: This patient has had 5 or more Emergency Department visits in the last 12 months.\T\nbsp; Patient requires education on the scope and purpose of the ED as an acute care provider not a Primary Care Provider and should not be utilized for chronic conditions.\T\nbsp; These are guidelines and the provider should exercise clinical judgment when providing care. 02/23/2020 [facility] Patient has long history of canceling/rescheduling Clinic appointments.\T\nbsp; Left voice mail to follow up with PCP Dr. Jenkins 12/20/2019 [facility] Patient has follow up visit with Dr. Jenkins on 01/02/2020 E.D. VISIT COUNT (12 MO.) 8 [facility] TOTAL 8 NOTE: Visits indicate total known visits. 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 - Nicotine dependence, cigarettes, uncomplicated - Allergy to other foods - Contact with and (suspected) exposure to COVID-19 - Other [place] [facility] (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 - Shortness of breath - Type 2 diabetes mellitus without complications - Hypertensive heart disease with heart failure - Old myocardial infarction - Heart failure, unspecified - Atherosclerotic heart disease of [place] coronary artery without angina pectoris 01/03/2022 14:57 [facility] [place] TYPE: Emergency COMPLAINT: - CHEST PAIN, L ARM NUMBNESS DIAGNOSES: - Allergy status to other drugs, medicaments and biological substances - Latex allergy status - Old myocardial infarction - Nicotine dependence, unspecified, uncomplicated - Essential (primary) hypertension - Osteomyelitis, unspecified - Body mass index [BMI] 37.0-37.9, adult - long-term (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 - Chest pain, unspecified - Type 2 diabetes mellitus without complications - Atherosclerotic heart disease of [place] coronary artery without angina pectoris - Obesity, unspecified - Allergy to other foods - Presence of coronary angioplasty implant and graft 11/22/2021 12:13 [facility] TYPE: Emergency COMPLAINT: - NECK SWELLING, L SHOULDER PAIN, HEADACHE DIAGNOSES: - Obesity, unspecified - Chest pain, unspecified - Other [place] [facility] (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 - Essential (primary) hypertension - Contact with and (suspected) exposure to COVID-19 - Allergy status to other drugs, medicaments and biological substances - Type 2 diabetes mellitus without complications - Old myocardial infarction - Nicotine dependence, unspecified, uncomplicated - Latex allergy status - Atherosclerotic heart disease of [place] coronary artery without angina pectoris - Anxiety disorder, unspecified - Other osteomyelitis, shoulder 11/02/2021 15:05 [facility] TYPE: Emergency COMPLAINT: - POSS ALLERGIC REACTION DIAGNOSES: - Atherosclerotic heart disease of [place] coronary artery without angina pectoris - Myositis, unspecified - Allergy status to other drugs, medicaments and biological substances - Cervicalgia - Essential (primary) hypertension - Latex allergy status - Type 2 diabetes mellitus without complications - Other [place] [facility] (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 - Obesity, unspecified - Contact with and (suspected) exposure to COVID-19 - Nicotine dependence, unspecified, uncomplicated - Old myocardial infarction 10/27/2021 14:55 [facility] TYPE: Emergency COMPLAINT: - CHEST PAIN, HEADACHE, RASH ON UPPER TORSO DIAGNOSES: - Obesity, unspecified - Allergy status to other drugs, medicaments and biological substances - Atherosclerotic heart disease of [place] coronary artery without angina pectoris - Other debt counselor (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 - Other chest pain [...] without complications - Atherosclerotic heart disease of [place] coronary artery without angina pectoris - Other chest pain - Urinary tract infection, site not specified - Nicotine dependence, unspecified, uncomplicated - Obesity, unspecified - Other debt counselor (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 - Contact with and [...] 2 diabetes mellitus without complications - Other debt counselor (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 - Other specified disorders of eye and adnexa - 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 - Injury of conjunctiva and corneal abrasion without foreign body, left eye, initial encounter - Allergy status to other drugs, medicaments and biological substances INPATIENT VISIT TRACKING (12 MO.) 11/23/2021 01:10 [facility] TYPE: General Medicine DIAGNOSES: - Cutaneous abscess of chest wall - Type 2 diabetes mellitus with hyperglycemia - Essential (primary) hypertension - Bacteremia - Cutaneous abscess of right foot - Type 2 diabetes mellitus with unspecified complications - Atherosclerotic heart disease of [place] coronary artery without angina pectoris - Abscess of bursa, right ankle and foot - Other acute osteomyelitis, left shoulder - Left Sternal Osteomyelitis - Primary osteoarthritis, left shoulder - Methicillin resistant Staphylococcus aureus infection as the cause of diseases classified elsewhere - Methicillin resistant Staphylococcus aureus infection, unspecified site [email or web address]
[2022-01-24] MEDS ORDERED: NITROFURANTOIN100 M1 PO (16:08)
== END 2022-01-24 20:14 | disposition home or self-care (01) ==
LOC: ED 14:58
DX: I11.0 Hypertensive heart disease with heart failure (principal); I50.9 Heart failure, unspecified; E11.9 Type 2 diabetes mellitus without complications; E66.9 Obesity, unspecified; I25.10 Atherosclerotic heart disease of native coronary artery without angina pectoris; I25.2 Old myocardial infarction; F17.200 Nicotine dependence, unspecified, uncomplicated; Z88.8 Allergy status to other drugs, medicaments and biological substances; Z91.040 Latex allergy status; Z79.899 Other long term (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; Z79.4 Long term (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
CPT/HCPCS: 36415; 71045; 80053; 83735; 83880; 84484; 85025; 86140; 93005; 93010; 99285-25

== ENCOUNTER 2022-02-27 23:16 | Emergency (ER) | payer OTHER ==
[~2022-02-27] VITALS: Ht 167.6 cm; Wt 106.6 kg
[~2022-02-27 23:16] MED LIST changes: +NITROFURANTOIN100 M1 PO
--- OUTSIDE RECORDS SUMMARY | 2022-02-27 23:18 | XMS ---
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 - 2 Visits in 30 Days - 6 ED Visits in 6 Months - [facility] - Has Care Guidelines CARE PROVIDERS SURENDRA JENKINS Internal Medicine 10/22/2020-Current PHONE: Unknown [place] has no Care Guidelines for this patient. Care History Medical/Surgical 10/29/2021 [facility] - Patient is currently established with [facility]. If patient is seen in the ED during business hours. Please contact CHWs at [facility]. Care Recommendation: This patient has had 5 or more Emergency Department visits in the last 12 months.\T\nbsp; Patient requires education on the scope and purpose of the ED as an acute care provider not a Primary Care Provider and should not be utilized for chronic conditions.\T\nbsp; These are guidelines and the provider should exercise clinical judgment when providing care. 02/23/2020 [facility] Patient has long history of canceling/rescheduling Clinic appointments.\T\nbsp; Left voice mail to follow up with PCP Dr. Jenkins 12/20/2019 [facility] Patient has follow up visit with Dr. Jenkins on 01/02/2020 E.D. VISIT COUNT (12 MO.) 10 [facility]ON[facility] T[facility] TOTAL 10 NOTE: Visits indicate total known visits. ED/UCC VISIT TRACKING (12 MO.) 02/27/2022 23:16 [facility] TYPE: Emergency COMPLAINT: - CHEST PAIN 02/01/2022 15:55 [facility] TYPE: Emergency COMPLAINT: - MULTI COMPLAINTS KIDNEY ISSUE DIAGNOSES: - Body mass index [BMI] 37.0-37.9, adult - Essential (primary) hypertension - Dysuria - Atherosclerotic heart disease of [place] coronary artery without angina pectoris - Nicotine dependence, unspecified, uncomplicated - Allergy status to other drugs, medicaments and biological substances - Old myocardial infarction - Other long term care administrator (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 - Type 2 diabetes mellitus without complications - Urinary tract infection, site not specified - 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 - Obesity, unspecified - Latex allergy status 01/24/2022 14:59 [facility] TYPE: Emergency COMPLAINT: - CHEST PAIN, SOB, SWELLING ANKLES DIAGNOSES: - Chest pain, unspecified - Nicotine dependence, unspecified, uncomplicated - Heart failure, unspecified - Hypertensive heart disease with heart failure - Allergy status to other drugs, medicaments and biological substances - Latex allergy status - Old myocardial infarction - Other intermediate (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 - Obesity, unspecified - Type 2 diabetes mellitus without complications - snf (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 - Atherosclerotic heart disease of [place] coronary artery without angina pectoris 01/22/2022 17:16 [facility] TYPE: Emergency COMPLAINT: - SHORTNESS OF BREATH DIAGNOSES: - Shortness of breath - Latex allergy status - Contact with and (suspected) exposure to COVID-19 - Atherosclerotic heart disease of [place] coronary artery without angina pectoris - Nicotine dependence, cigarettes, uncomplicated - Old myocardial infarction - Urinary tract infection, site not specified - Type 2 diabetes mellitus without complications - Presence of coronary angioplasty implant and graft - Other intermediate (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 - Allergy to other foods - Heart failure, unspecified - 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 - Hypertensive heart disease with heart failure - Allergy status to other drugs, medicaments and biological substances 01/03/2022 14:57 [facility] TYPE: Emergency COMPLAINT: - CHEST PAIN, L ARM NUMBNESS DIAGNOSES: - Type 2 diabetes mellitus without complications - Allergy status to other drugs, medicaments and biological substances - 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 - Osteomyelitis, unspecified - Allergy to other foods - Nicotine dependence, unspecified, uncomplicated - Atherosclerotic heart disease of [place] coronary artery without angina pectoris - Latex allergy status - Chest pain, unspecified - Body mass index [BMI] 37.0-37.9, adult - Presence of coronary angioplasty implant and graft - Essential (primary) hypertension - Obesity, unspecified - Old myocardial infarction 11/22/2021 12:13 [facility] TYPE: Emergency COMPLAINT: - NECK SWELLING, L SHOULDER PAIN, HEADACHE DIAGNOSES: - Latex allergy status - Obesity, unspecified - Old myocardial infarction - Allergy status to other drugs, medicaments and biological substances - Other osteomyelitis, shoulder - Essential (primary) hypertension - Atherosclerotic heart disease of [place] coronary artery without angina pectoris - Chest pain, unspecified - Nicotine dependence, unspecified, uncomplicated - Type 2 diabetes mellitus without complications - Contact with and (suspected) exposure to COVID-19 - Anxiety disorder, unspecified - Other long term care administrator (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 11/02/2021 15:05 [facility] TYPE: Emergency COMPLAINT: - POSS ALLERGIC REACTION DIAGNOSES: - Contact with and (suspected) exposure to COVID-19 - Atherosclerotic heart disease of [place] coronary artery without angina pectoris - Other intermediate (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 - Latex allergy status - Cervicalgia - Nicotine dependence, unspecified, uncomplicated - Myositis, unspecified - Obesity, unspecified - Type 2 diabetes mellitus without complications - Essential (primary) hypertension - Old myocardial infarction - Allergy status to other drugs, medicaments and biological substances 10/27/2021 14:55 [facility] TYPE: Emergency COMPLAINT: - CHEST PAIN, HEADACHE, RASH ON UPPER TORSO DIAGNOSES: - Latex allergy status - Obesity, unspecified - Old myocardial infarction - Urinary tract infection, site not specified - Other long term care administrator (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 - Nicotine dependence, unspecified, uncomplicated - Allergy status to other drugs, medicaments and biological substances - Type 2 diabetes mellitus without complications - Essential (primary) hypertension - Other chest pain - Atherosclerotic heart disease of [place] coronary artery without angina pectoris 10/26/2021 15:56 [facility] TYPE: Emergency COMPLAINT: - L SIDE PAIN AND MUMBNESS DIAGNOSES: - Essential (primary) hypertension - Type 2 diabetes mellitus without complications - Contact with and (suspected) exposure to COVID-19 - Obesity, unspecified - Urinary tract infection, site not specified - Allergy status to other drugs, medicaments and biological substances - Atherosclerotic heart disease of [place] coronary artery without angina pectoris - Old myocardial infarction - Other intermediate (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 - Nicotine dependence, unspecified, uncomplicated - Latex allergy status - Other chest pain 09/03/2021 16:38 [facility] TYPE: Emergency COMPLAINT: - EYE PROBLEM DIAGNOSES: - Injury of conjunctiva and corneal abrasion without foreign body, left eye, initial encounter - Obesity, unspecified - Other specified disorders of eye and adnexa - Type 2 diabetes mellitus without complications - Nicotine dependence, unspecified, uncomplicated - Allergy status to other drugs, medicaments and biological substances - Essential (primary) hypertension - snf (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 - Other long term care administrator (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 - Latex allergy status - Old myocardial infarction INPATIENT VISIT TRACKING (12 MO.) 11/23/2021 01:10 [facility] TYPE: General Medicine DIAGNOSES: - Left Sternal Osteomyelitis - Cutaneous abscess of chest wall - Abscess of bursa, right ankle and foot - Type 2 diabetes mellitus with unspecified complications - Methicillin resistant Staphylococcus aureus infection, unspecified site - Bacteremia - Primary osteoarthritis, left shoulder - Type 2 diabetes mellitus with hyperglycemia - Other acute osteomyelitis, left shoulder - Atherosclerotic heart disease of [place] coronary artery without angina pectoris - Cutaneous abscess of right foot - Methicillin resistant Staphylococcus aureus infection as the cause of diseases classified elsewhere - Essential (primary) hypertension [email or web address]
[2022-02-27] MEDS ORDERED: NITROGLYCERIN0.4 MG SL (23:33)
--- NOTE | 2022-03-01 15:52 | EKG ---
[facility] [address] [place] [address] Signed Sinus rhythm with occasional premature ventricular complexes Otherwise normal ECG When compared with ECG of 24-JAN-2022 14:59, premature ventricular complexes are now present Confirmed by KAYLYNN MANTILLA MD ([id number]) on 03/01/2022 3:52:21 PM Electronically Signed By: KAYLYNN MANTILLA MD 03/01/22 1552 PATIENT NAME: WILBERT KUO Electrocardiogram DATE OF : 76 PHYSICIAN: KAYLYNN MANTILLA MD REPORT #: [id number] REPORT IS CONFIDENTIAL AND NOT TO BE RELEASED WITHOUT AUTHORIZATION
== END 2022-02-28 02:03 | disposition home or self-care (01) ==
LOC: ED 23:16
DX: R07.89 Other chest pain (principal); I10 Essential (primary) hypertension; E11.9 Type 2 diabetes mellitus without complications; E66.9 Obesity, unspecified; I25.10 Atherosclerotic heart disease of native coronary artery without angina pectoris; I25.2 Old myocardial infarction; F17.200 Nicotine dependence, unspecified, uncomplicated; Z88.8 Allergy status to other drugs, medicaments and biological substances; Z91.040 Latex allergy status; Z79.4 Long term (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
CPT/HCPCS: 36415; 71045; 80053; 83735; 84484; 85025; 85379; 96374; 99285-25; J1885

== ENCOUNTER 2022-02-28 16:34 | Emergency (ER) | payer OTHER ==
[~2022-02-28] VITALS: Ht 167.6 cm; Wt 106.6 kg
--- OUTSIDE RECORDS SUMMARY | 2022-02-28 16:36 | XMS ---
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 Care History Medical/Surgical 10/29/2021 [facility] - Patient is currently established with [facility]. If patient is seen in the ED during business hours. Please contact CHWs at [facility]. Care Recommendation: This patient has [...] judgment when providing care. 02/23/2020 [facility] Patient has long history of canceling/rescheduling Clinic appointments.\T\nbsp; Left voice mail to follow up with PCP Dr. Jenkins 12/20/2019 [facility] Patient has follow up visit with Dr. Jenkins on 01/02/2020 E.D. VISIT COUNT (12 MO.) 11 [facility] TOTAL 11 NOTE: Visits indicate total known visits. 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 - Type 2 diabetes mellitus without complications - Urinary tract infection, site not specified - detective precinct (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 - Obesity, unspecified - Latex allergy status - Body mass index [BMI] 37.0-37.9, adult - Essential (primary) hypertension - Dysuria 01/24/2022 14:59 [facility] TYPE: Emergency COMPLAINT: - CHEST PAIN, SOB, SWELLING ANKLES DIAGNOSES: - Hypertensive heart disease with heart failure - Allergy status to other drugs, medicaments and biological substances - Latex allergy status - Old myocardial infarction - Other [facility] (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 - Obesity, unspecified - Type 2 diabetes mellitus without complications - detective precinct (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 - Atherosclerotic heart disease of [place] coronary artery without angina pectoris - Chest pain, unspecified - Nicotine dependence, unspecified, uncomplicated - Heart failure, unspecified 01/22/2022 17:16 [facility] TYPE: Emergency COMPLAINT: - SHORTNESS OF BREATH DIAGNOSES: - Atherosclerotic heart disease of [place] coronary artery without angina pectoris - Nicotine dependence, cigarettes, uncomplicated - Old myocardial infarction - Urinary tract infection, site not specified - Type 2 diabetes mellitus without complications - Presence of coronary angioplasty implant and graft - 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 - Allergy to other foods - Heart failure, unspecified - [facility] (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 - Hypertensive heart disease with heart failure - Allergy status to other drugs, medicaments and biological substances - Shortness of breath - Latex allergy status - Contact with and (suspected) exposure to COVID-19 01/03/2022 14:57 [facility] TYPE: Emergency COMPLAINT: - CHEST PAIN, L ARM NUMBNESS DIAGNOSES: - Osteomyelitis, unspecified - Allergy to other foods - Nicotine dependence, unspecified, uncomplicated - Atherosclerotic heart disease of [place] coronary artery without angina pectoris - Latex allergy status - Chest pain, unspecified - Body mass index [BMI] 37.0-37.9, adult - Presence of coronary angioplasty implant and graft - Essential (primary) hypertension - Obesity, unspecified - Old myocardial infarction - Type 2 diabetes mellitus without complications - Allergy status to other drugs, medicaments and biological substances - [facility] (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 11/22/2021 12:13 [facility] TYPE: Emergency COMPLAINT: - NECK SWELLING, L SHOULDER PAIN, HEADACHE DIAGNOSES: - Allergy status to other drugs, medicaments and biological substances - Other osteomyelitis, shoulder - Essential (primary) hypertension - Atherosclerotic heart disease of [place] coronary artery without angina pectoris - Chest pain, unspecified - Nicotine dependence, unspecified, uncomplicated - Type 2 diabetes mellitus without complications - Contact with and (suspected) exposure to COVID-19 - Anxiety disorder, unspecified - 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 - Latex allergy status - Obesity, unspecified - Old myocardial infarction 11/02/2021 15:05 [facility] TYPE: Emergency COMPLAINT: - POSS ALLERGIC REACTION DIAGNOSES: - Latex allergy status - Cervicalgia - Nicotine dependence, unspecified, uncomplicated - Myositis, unspecified - Obesity, unspecified - Type 2 diabetes mellitus without complications - Essential (primary) hypertension - Old myocardial infarction - Allergy status to other drugs, medicaments and biological substances - Contact with and (suspected) exposure to COVID-19 - Atherosclerotic heart disease of [place] coronary artery without angina pectoris - Other [facility] (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 10/27/2021 14:55 [facility] TYPE: Emergency COMPLAINT: - CHEST PAIN, HEADACHE, RASH ON UPPER TORSO DIAGNOSES: - Urinary tract infection, site not specified - 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 - Nicotine dependence, unspecified, uncomplicated - Allergy status to other drugs, medicaments and biological substances - Type 2 diabetes mellitus without complications - Essential (primary) hypertension - Other chest pain - Atherosclerotic heart disease of [place] coronary artery without angina pectoris - Latex allergy status - Obesity, unspecified - Old myocardial infarction 10/26/2021 15:56 [facility] TYPE: Emergency COMPLAINT: - L SIDE PAIN AND MUMBNESS DIAGNOSES: - Obesity, unspecified - Urinary tract infection, site not specified - Allergy status to other drugs, medicaments and biological substances - Atherosclerotic heart disease of [place] coronary artery without angina pectoris - Old myocardial infarction - 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 - Nicotine dependence, unspecified, uncomplicated - Latex allergy status - Other chest pain - Essential (primary) hypertension - Type 2 diabetes mellitus without complications - Contact with and (suspected) exposure to COVID-19 09/03/2021 16:38 [facility] TYPE: Emergency COMPLAINT: - EYE PROBLEM DIAGNOSES: - Type 2 diabetes mellitus without complications - Nicotine dependence, unspecified, uncomplicated - Allergy status to other drugs, medicaments and biological substances - Essential (primary) hypertension - [facility] (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 - 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 - Latex allergy status - Old myocardial infarction - Injury of conjunctiva and corneal abrasion without foreign body, left eye, initial encounter - Obesity, unspecified - Other specified disorders of eye and adnexa INPATIENT VISIT TRACKING (12 MO.) 11/23/2021 01:10 [facility] TYPE: General Medicine DIAGNOSES: - Type 2 diabetes mellitus with unspecified complications - Methicillin resistant Staphylococcus aureus infection, unspecified site - Bacteremia - Primary osteoarthritis, left shoulder - Type 2 diabetes mellitus with hyperglycemia - Other acute osteomyelitis, left shoulder - Atherosclerotic heart disease of [place] coronary artery without angina pectoris - Cutaneous abscess of right foot - Methicillin resistant Staphylococcus aureus infection as the cause of diseases classified elsewhere - Essential (primary) hypertension - Left Sternal Osteomyelitis - Cutaneous abscess of chest wall - Abscess of bursa, right ankle and foot [id number]
--- NOTE | 2022-03-01 15:55 | EKG ---
[facility] [address] [facility] [address] [place] [address] Signed Normal sinus rhythm Low voltage QRS Borderline ECG When compared with ECG of 27-FEB-2022 23:23, (Unconfirmed) premature ventricular complexes are no longer present Confirmed by KAYLYNN MANTILLA MD ([id number]) on 03/01/2022 3:55:37 PM Electronically Signed By: KAYLYNN MANTILLA MD 03/01/22 1555 PATIENT NAME: WILBERT KUO Electrocardiogram DATE OF : 76 PHYSICIAN: KAYLYNN MANTILLA MD REPORT #: [id number] REPORT IS CONFIDENTIAL AND NOT TO BE RELEASED WITHOUT AUTHORIZATION
== END 2022-02-28 19:20 | disposition home or self-care (01) ==
LOC: ED 16:34
DX: R07.9 Chest pain, unspecified (principal); I10 Essential (primary) hypertension; E11.9 Type 2 diabetes mellitus without complications; E66.9 Obesity, unspecified; I25.10 Atherosclerotic heart disease of native coronary artery without angina pectoris; I25.2 Old myocardial infarction; F17.200 Nicotine dependence, unspecified, uncomplicated; Z88.8 Allergy status to other drugs, medicaments and biological substances; Z91.040 Latex allergy status; Z88.1 Allergy status to other antibiotic agents; Z79.899 Other long term (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; Z79.4 Long term (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
CPT/HCPCS: 36415; 71045; 80053; 83735; 84484; 85025; 93005; 93010; 96365; 96375; 99285-25; J2270; J3475

== ENCOUNTER 2022-03-17 14:47 | Emergency (ER) | payer OTHER ==
[~2022-03-17] VITALS: Ht 167.6 cm; Wt 106.6 kg
--- OUTSIDE RECORDS SUMMARY | 2022-03-17 14:50 | XMS ---
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 Care History Medical/Surgical 10/29/2021 [facility] - Patient is currently established with [facility]. If patient is seen in the ED during business hours. Please contact CHWs at [facility]. Care Recommendation: This patient has had 5 or more Emergency Department visits in the last 12 months.\T\nbsp; Patient requires education on the scope and purpose of the ED as an acute care provider not a Primary Care Provider and should not be utilized for chronic conditions.\T\nbsp; These are guidelines and the provider should exercise clinical judgment when providing care. 02/23/2020 [facility] Patient has long history of canceling/rescheduling Clinic appointments.\T\nbsp; Left voice mail to follow up with PCP Dr. Jenkins 12/20/2019 [facility] Patient has follow up visit with Dr. Jenkins on 01/02/2020 E.D. VISIT COUNT (12 MO.) 13 [facility] [place] TOTAL 13 NOTE: Visits indicate total known visits. ED/UCC VISIT TRACKING (12 MO.) 03/17/2022 14:47 [facility] [place] TYPE: Emergency COMPLAINT: - SHOB/CHEST PAIN 03/14/2022 16:52 [facility] [place] TYPE: Emergency COMPLAINT: - FOOT SWELLING 02/28/2022 16:34 [facility] [place] TYPE: Emergency COMPLAINT: - CHEST PAIN DIAGNOSES: - custodial (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 - Chest pain, unspecified - Type 2 diabetes mellitus without complications - Allergy status to other drugs, medicaments and biological substances - Essential (primary) hypertension - Obesity, unspecified - Old myocardial infarction - Atherosclerotic heart disease of [place] coronary artery without angina pectoris - Other terminal supervisor (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 - Nicotine dependence, unspecified, uncomplicated - Allergy status to other antibiotic agents - Latex allergy status 02/27/2022 23:16 [facility] [place] TYPE: Emergency COMPLAINT: - CHEST PAIN DIAGNOSES: - Essential (primary) hypertension - Other chest pain - Nicotine dependence, unspecified, uncomplicated - Type 2 diabetes mellitus without complications - 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 - Obesity, unspecified - Old myocardial infarction - Latex allergy status - Allergy status to other drugs, medicaments and biological substances - Atherosclerotic heart disease of [place] coronary artery without angina pectoris 02/01/2022 15:55 [facility] [place] TYPE: Emergency COMPLAINT: - MULTI COMPLAINTS KIDNEY ISSUE DIAGNOSES: - Latex allergy status - Body mass index [BMI] 37.0-37.9, adult - Essential (primary) hypertension - Dysuria - Atherosclerotic heart disease of [place] coronary artery without angina pectoris - Nicotine dependence, unspecified, uncomplicated - Allergy status to other drugs, medicaments and biological substances - Old myocardial infarction - Other 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 supervisor (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 - Type 2 diabetes mellitus without complications - Urinary tract infection, site not specified - custodial (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 - Obesity, unspecified 01/24/2022 14:59 [facility] [place] TYPE: Emergency COMPLAINT: - CHEST PAIN, SOB, SWELLING ANKLES DIAGNOSES: - Atherosclerotic heart disease of [place] coronary artery without angina pectoris - Chest pain, unspecified - Nicotine dependence, unspecified, uncomplicated - Heart failure, unspecified - Hypertensive heart disease with heart failure - Allergy status to other drugs, medicaments and biological substances - Latex allergy status - Old myocardial infarction - Other alf (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 - Obesity, unspecified - Type 2 diabetes mellitus without complications - 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 01/22/2022 17:16 [facility] [place] TYPE: Emergency COMPLAINT: - SHORTNESS OF BREATH DIAGNOSES: - Allergy status to other drugs, medicaments and biological substances - Shortness of breath - Latex allergy status - Contact with and (suspected) exposure to COVID-19 - Atherosclerotic heart disease of [place] coronary artery without angina pectoris - Nicotine dependence, cigarettes, uncomplicated - Old myocardial infarction - Urinary tract infection, site not specified - Type 2 diabetes mellitus without complications - Presence of coronary angioplasty implant and graft - Other terminal supervisor (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 - Allergy to other foods - Heart failure, unspecified - custodial (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 - Hypertensive heart disease with heart failure 01/03/2022 14:57 [facility] [place] TYPE: Emergency COMPLAINT: - CHEST PAIN, L ARM NUMBNESS DIAGNOSES: - Old myocardial infarction - Type 2 diabetes mellitus without complications - Allergy status to other drugs, medicaments and biological substances - 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 - Osteomyelitis, unspecified - Allergy to other foods - Nicotine dependence, unspecified, uncomplicated - Atherosclerotic heart disease of [place] coronary artery without angina pectoris - Latex allergy status - Chest pain, unspecified - Body mass index [BMI] 37.0-37.9, adult - Presence of coronary angioplasty implant and graft - Essential (primary) hypertension - Obesity, unspecified 11/22/2021 12:13 [facility] [place] TYPE: Emergency COMPLAINT: - NECK SWELLING, L SHOULDER PAIN, HEADACHE DIAGNOSES: - Other alf (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 - Latex allergy status - Obesity, unspecified - Old myocardial infarction - Allergy status to other drugs, medicaments and biological substances - Other osteomyelitis, shoulder - Essential (primary) hypertension - Atherosclerotic heart disease of [place] coronary artery without angina pectoris - Chest pain, unspecified - Nicotine dependence, unspecified, uncomplicated - Type 2 diabetes mellitus without complications - Contact with and (suspected) exposure to COVID-19 - Anxiety disorder, unspecified 11/02/2021 15:05 [facility] [place] TYPE: Emergency COMPLAINT: - POSS ALLERGIC REACTION DIAGNOSES: - Allergy status to other drugs, medicaments and biological substances - Contact with and (suspected) exposure to COVID-19 - Atherosclerotic heart disease of [place] coronary artery without angina pectoris - Other 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 supervisor (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 - Latex allergy status - Cervicalgia - Nicotine dependence, unspecified, uncomplicated - Myositis, unspecified - Obesity, unspecified - Type 2 diabetes mellitus without complications - Essential (primary) hypertension - Old myocardial infarction 10/27/2021 14:55 [facility] [place] TYPE: Emergency COMPLAINT: - CHEST PAIN, HEADACHE, RASH ON UPPER TORSO DIAGNOSES: - Atherosclerotic heart disease of [place] coronary artery without angina pectoris - Latex allergy status - Obesity, unspecified - Old myocardial infarction - Urinary tract infection, site not specified - Other alf (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 - Nicotine dependence, unspecified, uncomplicated - Allergy status to other drugs, medicaments and biological substances - Type 2 diabetes mellitus without complications - Essential (primary) hypertension - Other chest pain 10/26/2021 15:56 [facility] [place] TYPE: Emergency COMPLAINT: - L SIDE PAIN AND MUMBNESS DIAGNOSES: - Other chest pain - Essential (primary) hypertension - Type 2 diabetes mellitus without complications - Contact with and (suspected) exposure to COVID-19 - Obesity, unspecified - Urinary tract infection, site not specified - Allergy status to other drugs, medicaments and biological substances - Atherosclerotic heart disease of [place] coronary artery without angina pectoris - Old myocardial infarction - Other alf (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 - Nicotine dependence, unspecified, uncomplicated - Latex allergy status 09/03/2021 16:[address] [facility] [place] TYPE: Emergency COMPLAINT: - EYE PROBLEM DIAGNOSES: - Old myocardial infarction - Injury of conjunctiva and corneal abrasion without foreign body, left eye, initial encounter - Obesity, unspecified - Other specified disorders of eye and adnexa - Type 2 diabetes mellitus without complications - Nicotine dependence, unspecified, uncomplicated - Allergy status to other drugs, medicaments and biological substances - Essential (primary) hypertension - custodial (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 - Other alf (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 - Latex allergy status INPATIENT VISIT TRACKING (12 MO.) 11/23/2021 01:10 [facility] [place]: General Medicine DIAGNOSES: - Essential (primary) hypertension - Left Sternal Osteomyelitis - Cutaneous abscess of chest wall - Abscess of bursa, right ankle and foot - Type 2 diabetes mellitus with unspecified complications - Methicillin resistant Staphylococcus aureus infection, unspecified site - Bacteremia - Primary osteoarthritis, left shoulder - Type 2 diabetes mellitus with hyperglycemia - Other acute osteomyelitis, left shoulder - Atherosclerotic heart disease of [place] coronary artery without angina pectoris - Cutaneous abscess of right foot - Methicillin resistant Staphylococcus aureus infection as the cause of diseases classified elsewhere [email or web address]
[2022-03-17] MEDS ORDERED: ONDANSETRON ODT4 MG PO (16:35)
[2022-03-17] MEDS ORDERED: MECLIZINE HCL25 MG PO (16:35)
--- NOTE | 2022-03-17 20:29 | EKG ---
[facility] [address] [facility] [facility] [place], [place] [address] Signed Normal sinus rhythm Low voltage QRS Borderline ECG When compared with ECG of 28-FEB-2022 16:35, No significant change was found Confirmed by KAYLYNN MANTILLA MD ([id number]) on 03/17/2022 8:29:04 PM Electronically Signed By: KAYLYNN MANTILLA MD 03/17/222028 PATIENT NAME: WILBERT KUO SABINO Electrocardiogram DATE OF : 76 PHYSICIAN: KAYLYNN MANTILLA MD REPORT #: [id number] REPORT IS CONFIDENTIAL AND NOT TO BE RELEASED WITHOUT AUTHORIZATION
== END 2022-03-17 16:50 | disposition home or self-care (01) ==
LOC: ED 14:47
DX: R42 Dizziness and giddiness (principal); I10 Essential (primary) hypertension; E11.9 Type 2 diabetes mellitus without complications; I25.10 Atherosclerotic heart disease of native coronary artery without angina pectoris; I25.2 Old myocardial infarction; F17.200 Nicotine dependence, unspecified, uncomplicated; Z88.8 Allergy status to other drugs, medicaments and biological substances; Z91.040 Latex allergy status; Z79.899 Other long term (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; Z79.4 Long term (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
CPT/HCPCS: 36415; 70450; 71045; 80053; 85025; 93005; 93010; 99285-25; A9270

== ENCOUNTER 2022-03-25 15:24 | Emergency (ER) | payer OTHER ==
[~2022-03-25] VITALS: Ht 167.6 cm; Wt 106.6 kg
[~2022-03-25 15:24] MED LIST changes: +MECLIZINE HCL25 MG PO; +ONDANSETRON ODT4 MG PO
--- OUTSIDE RECORDS SUMMARY | 2022-03-25 15:26 | XMS ---
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 - 2 Visits in 30 Days - 6 ED Visits in 6 Months - [facility] - Has Care Guidelines - PDMP CARE PROVIDERS SURENDRA JENKINS Internal Medicine 10/22/2020-Current PHONE: Unknown [place] has no Care Guidelines for this patient. Care History Medical/Surgical 10/29/2021 [facility] - Patient is currently established with [facility]. If patient is seen in the ED during business hours. Please contact CHWs at [facility]. Care Recommendation: This patient has had 5 or more Emergency Department visits in the last 12 months.\T\nbsp; Patient requires education on the scope and purpose of the ED as an acute care provider not a Primary Care Provider and should not be utilized for chronic conditions.\T\nbsp; These are guidelines and the provider should exercise clinical judgment when providing care. 02/23/2020 [facility] Patient has long history of canceling/rescheduling Clinic appointments.\T\nbsp; Left voice mail to follow up with PCP Dr. Jenkins 12/20/2019 [facility] Patient has follow up visit with Dr. Jenkins on 01/02/2020 E.D. VISIT COUNT (12 MO.) 14 [facility] [place] TOTAL 14 NOTE: Visits indicate total known visits. ED/UCC VISIT TRACKING (12 MO.) 03/25/2022 15:24 [facility] [place] TYPE: Emergency COMPLAINT: - DIZZINESS 03/17/2022 14:47 [facility] [place] TYPE: Emergency COMPLAINT: - SHOB/CHEST PAIN DIAGNOSES: - Atherosclerotic heart disease of [place] coronary artery without angina pectoris - Other mcfp (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 - Old myocardial infarction - Nicotine dependence, unspecified, uncomplicated - Latex allergy status - Allergy status to other drugs, medicaments and biological substances - Essential (primary) hypertension - Dizziness and giddiness - alf (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 - Type 2 diabetes mellitus without complications 03/14/2022 16:52 [facility] [place] TYPE: Emergency COMPLAINT: - FOOT SWELLING 02/28/2022 16:34 [facility] [place] TYPE: Emergency COMPLAINT: - CHEST PAIN DIAGNOSES: - Nicotine dependence, unspecified, uncomplicated - Allergy status to other antibiotic agents - Latex allergy status - 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 - Chest pain, unspecified - Type 2 diabetes mellitus without complications - Allergy status to other drugs, medicaments and biological substances - Essential (primary) hypertension - Obesity, unspecified - Old myocardial infarction - Atherosclerotic heart disease of [place] coronary artery without angina pectoris - Other exterminator (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 02/27/2022 23:16 [facility] [place] TYPE: Emergency COMPLAINT: - CHEST PAIN DIAGNOSES: - Allergy status to other drugs, medicaments and biological substances - Atherosclerotic heart disease of [place] coronary artery without angina pectoris - Essential (primary) hypertension - Other chest pain - Nicotine dependence, unspecified, uncomplicated - Type 2 diabetes mellitus without complications - alf (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 - Obesity, unspecified - Old myocardial infarction - Latex allergy status 02/01/2022 15:55 [facility] [place] TYPE: Emergency COMPLAINT: - MULTI COMPLAINTS KIDNEY ISSUE DIAGNOSES: - Urinary tract infection, site not specified - 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 - Obesity, unspecified - Latex allergy status - Body mass index [BMI] 37.0-37.9, adult - Essential (primary) hypertension - Dysuria - Atherosclerotic heart disease of [place] coronary artery without angina pectoris - Nicotine dependence, unspecified, uncomplicated - Allergy status to other drugs, medicaments and biological substances - Old myocardial infarction - Other exterminator (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 - Type 2 diabetes mellitus without complications 01/24/2022 14:59 [facility] [place] TYPE: Emergency COMPLAINT: - CHEST PAIN, SOB, SWELLING ANKLES DIAGNOSES: - Obesity, unspecified - Type 2 diabetes mellitus without complications - 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 - Atherosclerotic heart disease of [place] coronary artery without angina pectoris - Chest pain, unspecified - Nicotine dependence, unspecified, uncomplicated - Heart failure, unspecified - Hypertensive heart disease with heart failure - Allergy status to other drugs, medicaments and biological substances - Latex allergy status - Old myocardial infarction - Other mcfp (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 01/22/2022 17:16 [facility] [place] TYPE: Emergency COMPLAINT: - SHORTNESS OF BREATH DIAGNOSES: - Allergy to other foods - Heart failure, unspecified - 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 - Hypertensive heart disease with heart failure - Allergy status to other drugs, medicaments and biological substances - Shortness of breath - Latex allergy status - Contact with and (suspected) exposure to COVID-19 - Atherosclerotic heart disease of [place] coronary artery without angina pectoris - Nicotine dependence, cigarettes, uncomplicated - Old myocardial infarction - Urinary tract infection, site not specified - Type 2 diabetes mellitus without complications - Presence of coronary angioplasty implant and graft - Other mcfp (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 01/03/2022 14:57 [facility] [place] TYPE: Emergency COMPLAINT: - CHEST PAIN, L ARM NUMBNESS DIAGNOSES: - Body mass index [BMI] 37.0-37.9, adult - Presence of coronary angioplasty implant and graft - Essential (primary) hypertension - Obesity, unspecified - Old myocardial infarction - Type 2 diabetes mellitus without complications - Allergy status to other drugs, medicaments and biological substances - 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 - Osteomyelitis, unspecified - Allergy to other foods - Nicotine dependence, unspecified, uncomplicated - Atherosclerotic heart disease of [place] coronary artery without angina pectoris - Latex allergy status - Chest pain, unspecified 11/22/2021 12:13 [facility] [place] TYPE: Emergency COMPLAINT: - NECK SWELLING, L SHOULDER PAIN, HEADACHE DIAGNOSES: - Type 2 diabetes mellitus without complications - Contact with and (suspected) exposure to COVID-19 - Anxiety disorder, unspecified - Other mcfp (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 - Latex allergy status - Obesity, unspecified - Old myocardial infarction - Allergy status to other drugs, medicaments and biological substances - Other osteomyelitis, shoulder - Essential (primary) hypertension - Atherosclerotic heart disease of [place] coronary artery without angina pectoris - Chest pain, unspecified - Nicotine dependence, unspecified, uncomplicated 11/02/2021 15:05 [facility] [place] TYPE: Emergency COMPLAINT: - POSS ALLERGIC REACTION DIAGNOSES: - Type 2 diabetes mellitus without complications - Essential (primary) hypertension - Old myocardial infarction - Allergy status to other drugs, medicaments and biological substances - Contact with and (suspected) exposure to COVID-19 - Atherosclerotic heart disease of [place] coronary artery without angina pectoris - Other exterminator (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 - Latex allergy status - Cervicalgia - Nicotine dependence, unspecified, uncomplicated - Myositis, unspecified - Obesity, unspecified 10/27/2021 14:55 [facility] [place] TYPE: Emergency COMPLAINT: - CHEST PAIN, HEADACHE, RASH ON UPPER TORSO DIAGNOSES: - Essential (primary) hypertension - Other chest pain - Atherosclerotic heart disease of [place] coronary artery without angina pectoris - Latex allergy status - Obesity, unspecified - Old myocardial infarction - Urinary tract infection, site not specified - Other exterminator (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 - Nicotine dependence, unspecified, uncomplicated - Allergy status to other drugs, medicaments and biological substances - Type 2 diabetes mellitus without complications 10/26/2021 15:56 [facility] [place] TYPE: Emergency COMPLAINT: - L SIDE PAIN AND MUMBNESS DIAGNOSES: - Other mcfp (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 - Nicotine dependence, unspecified, uncomplicated - Latex allergy status - Other chest pain - Essential (primary) hypertension - Type 2 diabetes mellitus without complications - Contact with and (suspected) exposure to COVID-19 - Obesity, unspecified - Urinary tract infection, site not specified - Allergy status to other drugs, medicaments and biological substances - Atherosclerotic heart disease of [place] coronary artery without angina pectoris - Old myocardial infarction 09/03/2021 16:38 [facility] [place] TYPE: Emergency COMPLAINT: - EYE PROBLEM DIAGNOSES: - Other exterminator (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 - Latex allergy status - Old myocardial infarction - Injury of conjunctiva and corneal abrasion without foreign body, left eye, initial encounter - Obesity, unspecified - Other specified disorders of eye and adnexa - Type 2 diabetes mellitus without complications - Nicotine dependence, unspecified, uncomplicated - Allergy status to other drugs, medicaments and biological substances - Essential (primary) hypertension - 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
[2022-03-26] MEDS ORDERED: LASIX20 MG PO (22:54)
--- NOTE | 2022-03-30 16:56 | EKG ---
[facility] [address] [place] [address] Signed Normal sinus rhythm Low voltage QRS Cannot rule out Anterior infarct , age undetermined Abnormal ECG When compared with ECG of 17-MAR-2022 15:00, No significant change was found Confirmed by Rohini Louise MD () on 03/30/2022 4:55:46 PM Electronically Signed By: ROHINI LOUISE MD 03/30/22 1656 PATIENT NAME: WILBERT KUO Electrocardiogram DATE OF : 76 PHYSICIAN: ROHINI LOUISE MD REPORT #: [id number] REPORT IS CONFIDENTIAL AND NOT TO BE RELEASED WITHOUT AUTHORIZATION
== END 2022-03-25 19:06 | disposition home or self-care (01) ==
LOC: ED 15:24
DX: N92.0 Excessive and frequent menstruation with regular cycle (principal); I10 Essential (primary) hypertension; E11.9 Type 2 diabetes mellitus without complications; E66.9 Obesity, unspecified; I25.10 Atherosclerotic heart disease of native coronary artery without angina pectoris; I25.2 Old myocardial infarction; F17.200 Nicotine dependence, unspecified, uncomplicated; Z88.8 Allergy status to other drugs, medicaments and biological substances; Z91.040 Latex allergy status; Z79.899 Other long term (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; Z79.4 Long term (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
CPT/HCPCS: 36415; 76830; 76856; 80053; 83735; 84484; 84703; 85025; 93005; 93010; 99284-25; J7030

== ENCOUNTER 2022-03-26 21:36 | Emergency (ER) | payer OTHER ==
[~2022-03-26] VITALS: Ht 167.6 cm; Wt 106.6 kg
--- OUTSIDE RECORDS SUMMARY | 2022-03-26 21:38 | XMS ---
PreManage Notification: WILBERT KUO Security Chronic Care Nurse Events No recent Security Events currently on file CRITERIA MET - PDMP - [facility] - 2 Visits in 30 Days - [facility] - Has Care Guidelines - 6 ED Visits in 6 Months CARE PROVIDERS SURENDRA CHAPMAN Internal Medicine 10/22/2020-Current PHONE: Unknown [place] has no Care Guidelines for this patient. Care History Medical/Surgical 10/29/2021 [facility] - Patient is currently established with [...] exercise clinical judgment when providing care. 02/23/2020 [facility] Patient has long history of canceling/rescheduling Clinic appointments.\T\nbsp; Left voice mail to follow up with PCP Dr. Chapman 12/20/2019 [facility] Patient has follow up visit with Dr. Chapman on 01/02/2020 E.D. VISIT COUNT (12 MO.) [address] [facility] TOTAL 15 NOTE: Visits indicate total known visits. ED/UCC VISIT TRACKING (12 MO.) 03/26/2022 21:36 [facility] [place] TYPE: Emergency COMPLAINT: - CHEST PAIN 03/25/2022 15:24 [facility] [place] TYPE: Emergency COMPLAINT: - DIZZINESS 03/17/2022 14:47 [facility] [place] TYPE: Emergency COMPLAINT: - SHOB/CHEST PAIN DIAGNOSES: - Essential (primary) hypertension - Dizziness and giddiness - USP (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 - Type 2 diabetes mellitus without complications - Atherosclerotic heart disease of [place] coronary artery without angina pectoris - Other director long term care (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 - Old myocardial infarction - Nicotine dependence, unspecified, uncomplicated - Latex allergy status - Allergy status to other drugs, medicaments and biological substances 03/14/2022 16:52 [facility] [place] TYPE: Emergency COMPLAINT: - FOOT SWELLING 02/28/2022 16:34 [facility] [place] TYPE: Emergency COMPLAINT: - CHEST PAIN DIAGNOSES: - Essential (primary) hypertension - Obesity, unspecified - Old myocardial infarction - Atherosclerotic heart disease of [place] coronary artery without angina pectoris - Other director long term care (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 - Nicotine dependence, unspecified, uncomplicated - Allergy status to other antibiotic agents - Latex allergy status - USP (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 - Chest pain, unspecified - Type 2 diabetes mellitus without complications - Allergy status to other drugs, medicaments and biological substances 02/27/2022 23:16 [facility] [place] TYPE: Emergency COMPLAINT: - CHEST PAIN DIAGNOSES: - USP (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 - Obesity, unspecified - Old myocardial infarction - Latex allergy status - Allergy status to other drugs, medicaments and biological substances - Atherosclerotic heart disease of [place] coronary artery without angina pectoris - Essential (primary) hypertension - Other chest pain - Nicotine dependence, unspecified, uncomplicated - Type 2 diabetes mellitus without complications 02/01/2022 15:55 [facility] [place] TYPE: Emergency COMPLAINT: - MULTI COMPLAINTS KIDNEY ISSUE DIAGNOSES: - Atherosclerotic heart disease of [place] coronary artery without angina pectoris - Nicotine dependence, unspecified, uncomplicated - Allergy status to other drugs, medicaments and biological substances - Old myocardial infarction - Other director long term care (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 - Type 2 diabetes mellitus without complications - Urinary tract infection, site not specified - manager terminal (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 - Obesity, unspecified - Latex allergy status - Body mass index [BMI] 37.0-37.9, adult - Essential (primary) hypertension - Dysuria 01/24/2022 14:[address] [facility] [place] TYPE: Emergency COMPLAINT: - CHEST PAIN, SOB, SWELLING ANKLES DIAGNOSES: - Hypertensive heart disease with heart failure - Allergy status to other drugs, medicaments and biological substances - Latex allergy status - Old myocardial infarction - Other director long term care (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 - Obesity, unspecified - Type 2 diabetes mellitus without complications - manager terminal (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 - Atherosclerotic heart disease of [place] coronary artery without angina pectoris - Chest pain, unspecified - Nicotine dependence, unspecified, uncomplicated - Heart failure, unspecified [facility]22[facility]22 17[facility] [place] [facility] COMPLAINT: - SHORTNESS OF BREATH DIAGNOSES: - Nicotine dependence, cigarettes, uncomplicated - Old myocardial infarction - Urinary tract infection, site not specified - Type 2 diabetes mellitus without complications - Presence of coronary angioplasty implant and graft - Other group home (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 - Allergy to other foods - Heart failure, unspecified - USP (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 - Hypertensive heart disease with heart failure - Allergy status to other drugs, medicaments and biological substances - Shortness of breath - Latex allergy status - Contact with and (suspected) exposure to COVID-19 - Atherosclerotic heart disease of [place] coronary artery without angina pectoris 01/03/2022 14:[address] [facility] [place] TYPE: Emergency COMPLAINT: - CHEST PAIN, L ARM NUMBNESS DIAGNOSES: - Osteomyelitis, unspecified - Allergy to other foods - Nicotine dependence, unspecified, uncomplicated - Atherosclerotic heart disease of [place] coronary artery without angina pectoris - Latex allergy status - Chest pain, unspecified - Body mass index [BMI] 37.0-37.9, adult - Presence of coronary angioplasty implant and graft - Essential (primary) hypertension - Obesity, unspecified - Old myocardial infarction - Type 2 diabetes mellitus without complications - Allergy status to other drugs, medicaments and biological substances - manager terminal (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 11/22/2021 12:13 [facility] [place] TYPE: Emergency COMPLAINT: - NECK SWELLING, L SHOULDER PAIN, HEADACHE DIAGNOSES: - Allergy status to other drugs, medicaments and biological substances - Other osteomyelitis, shoulder - Essential (primary) hypertension - Atherosclerotic heart disease of [place] coronary artery without angina pectoris - Chest pain, unspecified - Nicotine dependence, unspecified, uncomplicated - Type 2 diabetes mellitus without complications - Contact with and (suspected) exposure to COVID-19 - Anxiety disorder, unspecified - Other director long term care (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 - Latex allergy status [...] to COVID-19 - Atherosclerotic heart disease of [place] coronary artery without angina pectoris - Other group home (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 10/27/2021 14:55 [facility] [place] TYPE: Emergency COMPLAINT: - CHEST PAIN, HEADACHE, RASH ON UPPER TORSO DIAGNOSES: - Urinary tract infection, site not specified - Other group home (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 - Nicotine dependence, unspecified, uncomplicated - Allergy status to other drugs, medicaments and biological substances - Type 2 diabetes mellitus without complications - Essential (primary) hypertension - Other chest pain - Atherosclerotic heart disease of [place] coronary artery without angina pectoris - Latex allergy status - Obesity, unspecified - Old myocardial infarction 10/26/2021 15:56 [facility] [place] TYPE: Emergency COMPLAINT: - L SIDE PAIN AND MUMBNESS DIAGNOSES: - Obesity, unspecified - Urinary tract infection, site not specified - Allergy status to other drugs, medicaments and biological substances - Atherosclerotic heart disease of [place] coronary artery without angina pectoris - Old myocardial infarction - Other director long term care (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 - Nicotine dependence, unspecified, [...] biological substances - Essential (primary) hypertension - manager terminal (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 - Other group home (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 - Latex allergy status - Old myocardial infarction - Injury of conjunctiva and corneal abrasion without foreign body, left eye, initial encounter - Obesity, unspecified - Other specified disorders of eye and adnexa INPATIENT VISIT TRACKING (12 MO.) 11/23/2021 01:10 [facility] TYPE: General Medicine DIAGNOSES: - Type 2 diabetes mellitus with unspecified complications - Methicillin resistant Staphylococcus aureus infection, unspecified site - Bacteremia - Primary osteoarthritis, left shoulder - Type 2 diabetes mellitus with hyperglycemia - Other acute osteomyelitis, left shoulder - Atherosclerotic heart disease of [place] coronary artery without angina pectoris - Cutaneous abscess of right foot - Methicillin resistant Staphylococcus aureus infection as the cause of diseases classified elsewhere - Essential (primary) hypertension - Left Sternal Osteomyelitis - Cutaneous abscess of chest wall - Abscess of bursa, right ankle and foot [email or web address]
[2022-03-26] MEDS ORDERED: LASIX20 MG PO (22:54)
--- NOTE | 2022-03-30 17:09 | EKG ---
[facility] [address] [place] [address] Signed Normal sinus rhythm Normal ECG When compared with ECG of 25-MAR-2022 15:58, (Unconfirmed) No significant change was found Confirmed by Rohini Louise MD () on 03/30/2022 5:09:16 PM Electronically Signed By: ROHINI LOUISE MD 03/30/22 1709 PATIENT NAME: WILBERT KUO Electrocardiogram DATE OF : 76 PHYSICIAN: ROHINI LOUISE MD REPORT #: [id number] REPORT IS CONFIDENTIAL AND NOT TO BE RELEASED WITHOUT AUTHORIZATION
== END 2022-03-26 23:15 | disposition home or self-care (01) ==
LOC: ED 21:36
DX: I11.0 Hypertensive heart disease with heart failure (principal); I50.9 Heart failure, unspecified; E11.9 Type 2 diabetes mellitus without complications; I25.2 Old myocardial infarction; Z20.822 Contact with and (suspected) exposure to COVID-19; F17.200 Nicotine dependence, unspecified, uncomplicated; Z88.8 Allergy status to other drugs, medicaments and biological substances; Z91.040 Latex allergy status; Z79.899 Other long term (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
CPT/HCPCS: 36415; 71045; 80053; 83735; 83880; 84484; 85025; 85610; 87502; 93005; 93010; 99285-25; U0003

== ENCOUNTER 2022-04-04 16:18 | Emergency (ER) | payer OTHER ==
[~2022-04-04] VITALS: Ht 167.6 cm; Wt 106.6 kg
--- OUTSIDE RECORDS SUMMARY | 2022-04-04 16:20 | XMS ---
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 - Patient with suicidal and/or homicidal ideations eloped. - Patient eloped with IV in place. Details: PATIENT LWBS CRITERIA MET - [facility] - Has Care Guidelines - 6 ED Visits in 6 Months - PDMP - [facility] - 2 Visits in 30 Days CARE PROVIDERS SURENDRA CHAPMAN Internal Medicine 10/22/2020-Current PHONE: Unknown [place] has no Care Guidelines for this patient. Care History Medical/Surgical 10/29/2021 [facility] - Patient is currently established with [facility]. If patient is seen in the ED during business hours. Please contact [facility] at [facility]. Care Recommendation: This patient has had 5 or more Emergency Department visits in the last 12 months.\T\nbsp; Patient requires education on the scope and purpose of the ED as an acute care provider not a Primary Care Provider and should not be utilized for chronic conditions.\T\nbsp; These are guidelines and the provider should exercise clinical judgment when providing care. 02/23/2020 [facility] Patient has long history of canceling/rescheduling Clinic appointments.\T\nbsp; Left voice mail to follow up with PCP Dr. Chapman 12/20/2019 [facility] Patient has follow up visit with Dr. Chapman on 01/02/2020 [place] [facility] NOTE: Visits indicate total known visits. ED/UCC VISIT TRACKING (12 MO.) 04[facility]04[facility]2022 [facility] [place] [facility] COMPLAINT: - CHEST PAIN 03/26/2022 21:[address] [facility] [place] [place] COMPLAINT: - CHEST PAIN 03/25/2022 15:24 [facility] [place] COMPLAINT: - DIZZINESS 03/17/2022 14:[address] 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 - Type 2 diabetes mellitus without complications - Atherosclerotic heart disease of [place] coronary artery without angina pectoris - Other alf (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 03/14/2022 16:52 [facility] [place] TYPE: Emergency COMPLAINT: - FOOT SWELLING 02/28/2022 16:34 [facility] [place] TYPE: Emergency COMPLAINT: - CHEST PAIN DIAGNOSES: - Latex allergy status - FPC (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 - Chest pain, unspecified - Type 2 diabetes mellitus without complications - Allergy status to other drugs, medicaments and biological substances - Essential (primary) hypertension - Obesity, unspecified - Old myocardial infarction - Atherosclerotic heart disease of [place] coronary artery without angina pectoris - 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 - Nicotine dependence, unspecified, uncomplicated - Allergy status to other antibiotic agents 02/27/2022 23:16 [facility] [place] TYPE: Emergency COMPLAINT: - CHEST PAIN DIAGNOSES: - Essential (primary) hypertension - Other chest pain - Nicotine dependence, unspecified, uncomplicated - Type 2 diabetes mellitus without complications - FPC (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 - Obesity, unspecified - Old myocardial infarction - Latex allergy status - Allergy status to other drugs, medicaments and biological substances - Atherosclerotic heart disease of [place] coronary artery without angina pectoris 02/01/2022 15:55 [facility] [place] TYPE: Emergency COMPLAINT: - MULTI COMPLAINTS KIDNEY ISSUE DIAGNOSES: - Obesity, unspecified - Latex allergy status - Body mass index [BMI] 37.0-37.9, adult - Essential (primary) hypertension - Dysuria - Atherosclerotic heart disease of [place] coronary artery without angina pectoris - Nicotine dependence, unspecified, uncomplicated - Allergy status to other drugs, medicaments and biological substances - Old myocardial infarction - 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 - Type 2 diabetes mellitus without complications - Urinary tract infection, site not specified - FPC (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 01/24/2022 14:59 [facility] [place] TYPE: Emergency COMPLAINT: - CHEST PAIN, SOB, SWELLING ANKLES DIAGNOSES: - FPC (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 - Atherosclerotic heart disease of [place] coronary artery without angina pectoris - Chest pain, unspecified - Nicotine dependence, unspecified, uncomplicated - Heart failure, unspecified - Hypertensive heart disease with heart failure - Allergy status to other drugs, medicaments and biological substances - Latex allergy status - Old myocardial infarction - 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 - Obesity, unspecified - Type 2 diabetes mellitus without complications 01/22/2022 17:16 [facility] [place] TYPE: Emergency COMPLAINT: - SHORTNESS OF BREATH DIAGNOSES: - Hypertensive heart disease with heart failure - Allergy status to other drugs, medicaments and biological substances - Shortness of breath - Latex allergy status - Contact with and (suspected) exposure to COVID-19 - Atherosclerotic heart disease of [place] coronary artery without angina pectoris - Nicotine dependence, cigarettes, uncomplicated - Old myocardial infarction - Urinary tract infection, site not specified - Type 2 diabetes mellitus without complications - Presence of coronary angioplasty implant and graft - 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 - Allergy to other foods - Heart failure, unspecified - 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 01/03/2022 14:57 [facility] [place] TYPE: Emergency COMPLAINT: - CHEST PAIN, L ARM NUMBNESS DIAGNOSES: - Obesity, unspecified - Old myocardial infarction - Type 2 diabetes mellitus without complications - Allergy status to other drugs, medicaments and biological substances - FPC (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 - Osteomyelitis, unspecified - Allergy to other foods - Nicotine dependence, unspecified, uncomplicated - Atherosclerotic heart disease of [place] coronary artery without angina pectoris - Latex allergy status - Chest pain, unspecified - Body mass index [BMI] 37.0-37.9, adult - Presence of coronary angioplasty implant and graft - Essential (primary) hypertension 11/22/2021 12:13 [facility] [place] TYPE: Emergency COMPLAINT: - NECK SWELLING, L SHOULDER PAIN, HEADACHE DIAGNOSES: - Anxiety disorder, unspecified - 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 - Latex allergy status - Obesity, unspecified - Old myocardial infarction - Allergy status to other drugs, medicaments and biological substances - Other osteomyelitis, shoulder - Essential (primary) hypertension - Atherosclerotic heart disease of [place] coronary artery without angina pectoris - Chest pain, unspecified - Nicotine dependence, unspecified, uncomplicated - Type 2 diabetes mellitus without complications - Contact with and (suspected) exposure to COVID-19 11/02/2021 15:05 [facility] [place] TYPE: Emergency COMPLAINT: - POSS ALLERGIC REACTION DIAGNOSES: - Old myocardial infarction - Allergy status to other drugs, medicaments and biological substances - Contact with and (suspected) exposure to COVID-19 - Atherosclerotic heart disease of [place] coronary artery without angina pectoris - Other alf (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 - Latex allergy status - Cervicalgia - Nicotine dependence, unspecified, uncomplicated - Myositis, unspecified - Obesity, unspecified - Type 2 diabetes mellitus without complications - Essential (primary) hypertension 10/27/2021 14:55 [facility] [place] TYPE: Emergency COMPLAINT: - CHEST PAIN, HEADACHE, RASH ON UPPER TORSO DIAGNOSES: - Atherosclerotic heart disease of [place] coronary artery without angina pectoris - Latex [...] L SIDE PAIN AND MUMBNESS DIAGNOSES: - Latex allergy status - Other chest pain - Essential (primary) hypertension - Type 2 diabetes mellitus without complications - Contact with and (suspected) exposure to COVID-19 - Obesity, unspecified - Urinary tract infection, site not specified - Allergy status to other drugs, medicaments and biological substances - Atherosclerotic heart disease of [place] coronary artery without angina pectoris - Old myocardial infarction - Other alf (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 - Nicotine dependence, unspecified, uncomplicated 09/03/2021 16:38 [facility] [place] TYPE: Emergency [...] biological substances - Essential (primary) hypertension - FPC (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 - Other alf (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 - Latex allergy status INPATIENT VISIT TRACKING (12 MO.) 11/23/2021 01:10 [facility] TYPE: General Medicine DIAGNOSES: - Methicillin resistant Staphylococcus aureus infection as [...] left shoulder - Atherosclerotic heart disease of [place] coronary artery without angina pectoris - Cutaneous abscess of right foot [email or web address]
--- NOTE | 2022-04-04 18:03 | EKG ---
[facility] [address] [facility] [place] [address] Signed Normal sinus rhythm Normal ECG No previous ECGs available Confirmed by KAYLYNN MANTILLA MD ([id number]) on 04/04/2022 6:02:48 PM Electronically Signed By: KAYLYNN MANTILLA MD 04/04/221802 PATIENT NAME: WILBERT KUO Electrocardiogram DATE OF : 76 PHYSICIAN: KAYLYNN MANTILLA MD REPORT #: [id number] REPORT IS CONFIDENTIAL AND NOT TO BE RELEASED WITHOUT AUTHORIZATION
== END 2022-04-04 19:12 | disposition home or self-care (01) ==
LOC: ED 16:18
DX: R07.9 Chest pain, unspecified (principal); I25.10 Atherosclerotic heart disease of native coronary artery without angina pectoris; Z79.82 Long term (current) use of aspirin; I10 Essential (primary) hypertension; E11.9 Type 2 diabetes mellitus without complications; F17.200 Nicotine dependence, unspecified, uncomplicated; Z88.8 Allergy status to other drugs, medicaments and biological substances; Z91.040 Latex allergy status; Z91.018 Allergy to other foods; Z79.899 Other long term (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; Z79.4 Long term (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
CPT/HCPCS: 36415; 71045; 80053; 83735; 84484; 85025; 85610; 93005; 93010; 99285-25

== ENCOUNTER 2022-04-06 15:00 | Emergency (ER) | payer OTHER ==
[~2022-04-06] VITALS: Ht 167.6 cm; Wt 108.9 kg
--- OUTSIDE RECORDS SUMMARY | 2022-04-06 15:02 | XMS ---
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 - Patient with suicidal and/or homicidal ideations eloped. - Patient eloped with IV in place. Details: PATIENT LWBS CRITERIA MET - [facility] [place] - Has Care Guidelines - 6 ED Visits in 6 Months - PDMP - [facility] [place] - 2 Visits in 30 Days CARE PROVIDERS SURENDRA CHAPMAN Internal Medicine 10/22/2020-Current PHONE: Unknown [place] has no Care Guidelines for this patient. Care History Medical/Surgical 10/29/2021 [facility] - Patient is currently established with [facility]. If patient is seen in the ED during business hours. Please contact CHWs at [facility]. Care Recommendation: This patient has had 5 or more Emergency Department visits in the last 12 months.\T\nbsp; Patient requires education on the scope and purpose of the ED as an acute care provider not a Primary Care Provider and should not be utilized for chronic conditions.\T\nbsp; These are guidelines and the provider should exercise clinical judgment when providing care. 02/23/2020 [facility] Patient has long history of canceling/rescheduling Clinic appointments.\T\nbsp; Left voice mail to follow up with PCP Dr. Chapman 12/20/2019 [facility] Patient has follow up visit with Dr. Chapman on 01/02/2020 [place] [facility] MO[facility] NOTE: Visits indicate total known visits. ED/UCC VISIT TRACKING (12 MO.) 04/06[facility]2022 [facility] [place] [facility] COMPLAINT: - CHEST PAIN 04/04/2022 16:19 [facility] [place] TYPE: Emergency COMPLAINT: - CHEST PAIN 03/26/2022 21:36 [facility] [place] TYPE: Emergency COMPLAINT: - CHEST PAIN 03/25/2022 15:24 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 [place] TYPE: Emergency COMPLAINT: - FOOT SWELLING 02/28/2022 16:[address] 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 - Chest pain, unspecified 02/27/2022 23:16 [facility] [place] TYPE: Emergency COMPLAINT: - CHEST PAIN DIAGNOSES: - Nicotine dependence, unspecified, uncomplicated - Type 2 diabetes mellitus without complications - patternmaker helper (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 - Obesity, unspecified - Old myocardial infarction - Latex allergy status - Allergy status to other drugs, medicaments and biological substances - Atherosclerotic heart disease of [place] coronary artery without angina pectoris - Essential (primary) hypertension - Other chest pain 02/01/2022 15:55 [facility] [place] TYPE: Emergency COMPLAINT: - MULTI COMPLAINTS KIDNEY ISSUE DIAGNOSES: - Essential (primary) hypertension - Dysuria - Atherosclerotic heart disease of [place] coronary artery without angina pectoris - Nicotine dependence, unspecified, uncomplicated - Allergy status to other drugs, medicaments and biological substances - Old myocardial infarction - Other detention (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 - Type 2 diabetes mellitus without complications - Urinary tract infection, site not specified - penitentiary (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 - Obesity, unspecified - Latex allergy status - Body mass index [BMI] 37.0-37.9, adult 01/24/2022 14:59 [facility] [place] TYPE: Emergency COMPLAINT: - CHEST PAIN, SOB, SWELLING ANKLES DIAGNOSES: - Nicotine dependence, unspecified, uncomplicated - Heart failure, unspecified - Hypertensive heart disease with heart failure - Allergy status to other drugs, medicaments and biological substances - Latex allergy status - Old myocardial infarction - Other machine long goods helper (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 - Obesity, unspecified - Type 2 diabetes mellitus without complications - penitentiary (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 - Atherosclerotic heart disease of [place] coronary artery without angina pectoris - Chest pain, unspecified 01/22/2022 17:16 [facility] [place] TYPE: Emergency COMPLAINT: - SHORTNESS OF BREATH DIAGNOSES: - Latex allergy status - Contact with and (suspected) exposure to COVID-19 - Atherosclerotic heart disease of [place] coronary artery without angina pectoris - Nicotine dependence, cigarettes, uncomplicated - Old myocardial infarction - Urinary tract infection, site not specified - Type 2 diabetes mellitus without complications - Presence of coronary angioplasty implant and graft - Other machine long goods helper (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 - Allergy to other foods - Heart failure, unspecified - patternmaker helper (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 - Hypertensive heart disease with heart failure - Allergy status to other drugs, medicaments and biological substances - Shortness of breath 01/03/2022 14:57 [facility] [place] TYPE: Emergency COMPLAINT: - CHEST PAIN, L ARM NUMBNESS DIAGNOSES: - Allergy status to other drugs, medicaments and biological substances - penitentiary (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 - Osteomyelitis, unspecified - Allergy to other foods - Nicotine dependence, unspecified, uncomplicated - Atherosclerotic heart disease of [place] coronary artery without angina pectoris - Latex allergy status - Chest pain, unspecified - Body mass index [BMI] 37.0-37.9, adult - Presence of coronary angioplasty implant and graft - Essential (primary) hypertension - Obesity, unspecified - Old myocardial infarction - Type 2 diabetes mellitus without complications 11/22/2021 12:13 [facility] [place] TYPE: Emergency COMPLAINT: - NECK SWELLING, L SHOULDER PAIN, HEADACHE DIAGNOSES: - Obesity, unspecified - Old myocardial infarction - Allergy status to other drugs, medicaments and biological substances - Other osteomyelitis, shoulder - Essential (primary) hypertension - Atherosclerotic heart disease of [place] coronary artery without angina pectoris - Chest pain, unspecified - Nicotine dependence, unspecified, uncomplicated - Type 2 diabetes mellitus without complications - Contact with and (suspected) exposure to COVID-19 - Anxiety disorder, unspecified - Other machine long goods helper (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 - Latex allergy status 11/02/2021 15:05 [facility] [place] TYPE: Emergency COMPLAINT: - POSS ALLERGIC REACTION DIAGNOSES: - Atherosclerotic heart disease of [place] coronary artery without angina pectoris - Other machine long goods helper (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 - Latex allergy status - Cervicalgia - Nicotine dependence, unspecified, uncomplicated - Myositis, unspecified - Obesity, unspecified - Type 2 diabetes mellitus without complications - Essential (primary) hypertension - Old myocardial infarction - Allergy status to other drugs, medicaments and biological substances - Contact with and (suspected) exposure to COVID-19 10/27/2021 14:55 [facility] [place] TYPE: Emergency COMPLAINT: - CHEST PAIN, HEADACHE, RASH ON UPPER TORSO DIAGNOSES: - Obesity, unspecified - Old myocardial infarction - Urinary tract infection, site not specified - Other machine long goods helper (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 - Nicotine dependence, unspecified, uncomplicated - Allergy status to other drugs, medicaments and biological substances - Type 2 diabetes mellitus without complications - Essential (primary) hypertension - Other chest pain - Atherosclerotic heart disease of [place] coronary artery without angina pectoris - Latex allergy status 10/26/2021 15:56 [facility] [place] TYPE: Emergency COMPLAINT: - L SIDE PAIN AND MUMBNESS DIAGNOSES: - Type 2 diabetes mellitus without complications - Contact with and (suspected) exposure to COVID-19 - Obesity, unspecified - Urinary tract infection, site not specified - Allergy status to other drugs, medicaments and biological substances - Atherosclerotic heart disease of [place] coronary artery without angina pectoris - Old myocardial infarction - Other machine long goods helper (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 - Nicotine dependence, unspecified, uncomplicated - Latex allergy status - Other chest pain - Essential (primary) hypertension 09/03/2021 16:38 [facility] [place] TYPE: Emergency COMPLAINT: - EYE PROBLEM DIAGNOSES: - Obesity, unspecified - Other specified disorders of eye and adnexa - Type 2 diabetes mellitus without complications - Nicotine dependence, unspecified, uncomplicated - Allergy status to other drugs, medicaments and biological substances - Essential (primary) hypertension - penitentiary (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 - Other detention (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 - Latex allergy status - Old myocardial infarction - Injury of conjunctiva and corneal abrasion without foreign body, left eye, initial encounter INPATIENT VISIT TRACKING (12 MO.) 11/23/2021 01:10 [facility] TYPE: General Medicine DIAGNOSES: - Cutaneous abscess of chest wall - Abscess of bursa, right ankle and foot - Type 2 diabetes mellitus with unspecified complications - Methicillin resistant Staphylococcus aureus infection, unspecified site - Bacteremia - Primary osteoarthritis, left shoulder - Type 2 diabetes mellitus with hyperglycemia - Other acute osteomyelitis, left shoulder - Atherosclerotic heart disease of [place] coronary artery without angina pectoris - Cutaneous abscess of right foot - Methicillin resistant Staphylococcus aureus infection as the cause of diseases classified elsewhere - Essential (primary) hypertension - Left Sternal Osteomyelitis [email or web address]
[2022-04-06] MEDS ORDERED: HYDROCODON-ACE1 EA11 PO (16:56)
--- NOTE | 2022-04-07 13:11 | EKG ---
[facility] [address] [place] [address] Signed Normal sinus rhythm Normal ECG No previous ECGs available Confirmed by KAIT MERINO MD ([id number]) on 04/07/2022 1:11:12 PM Electronically Signed By: KAIT MERINO MD 04/07/22 1311 PATIENT NAME: WILBERT KUO Electrocardiogram DATE OF : 76 PHYSICIAN: KAIT MERINO MD REPORT #: [id number] REPORT IS CONFIDENTIAL AND NOT TO BE RELEASED WITHOUT AUTHORIZATION
== END 2022-04-06 17:10 | disposition home or self-care (01) ==
LOC: ED 15:00
DX: R07.9 Chest pain, unspecified (principal); I10 Essential (primary) hypertension; E11.9 Type 2 diabetes mellitus without complications; E66.9 Obesity, unspecified; I25.10 Atherosclerotic heart disease of native coronary artery without angina pectoris; I25.2 Old myocardial infarction; F17.200 Nicotine dependence, unspecified, uncomplicated; Z88.8 Allergy status to other drugs, medicaments and biological substances; Z91.040 Latex allergy status; Z79.899 Other long term (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; Z79.4 Long term (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
CPT/HCPCS: 36415; 71045; 80053; 83735; 84484; 85025; 85379; 85610; 93005; 93010; 99285-25

== ENCOUNTER 2022-04-08 14:29 | Emergency (ER) | payer OTHER ==
[~2022-04-08] VITALS: Ht 167.6 cm; Wt 108.9 kg
[~2022-04-08 14:29] MED LIST changes: +HYDROCODON-ACE1 EA11 PO
--- OUTSIDE RECORDS SUMMARY | 2022-04-08 14:32 | XMS ---
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 - Patient with suicidal and/or homicidal ideations eloped. - Patient eloped with IV in place. Details: PATIENT LWBS CRITERIA MET - 6 ED Visits in 6 Months - PDMP - [facility] - 2 Visits in 30 Days - [facility] - Has Care Guidelines CARE PROVIDERS SURENDRA CHAPMAN Internal Medicine 10/22/2020-Current PHONE: Unknown [place] has no Care Guidelines for this patient. Care History Medical/Surgical 10/29/2021 [facility] - [facility] [...] exercise clinical judgment when providing care. 02/23/2020 [facility] Patient has long history of canceling/rescheduling Clinic appointments.\T\nbsp; Left voice mail to follow up with PCP Dr. Chapman 12/20/2019 [facility] Patient has follow up visit with Dr. Chapman on 01/02/2020 [place] [facility] (12 MO.) [facility] NOTE: Visits indicate total known visits. ED/UCC VISIT TRACKING (12 MO.) 04/08/2022 [facility]:30 [facility] [place] [facility] COMPLAINT: - SOB, CHEST PAIN, L ARM PAIN 04/06/2022 15:00 [facility] [place] TYPE: Emergency COMPLAINT: - CHEST PAIN 04/04/2022 16:19 [facility] [place] TYPE: Emergency COMPLAINT: - CHEST PAIN 03/26/2022 21:36 [facility] [place] TYPE: Emergency COMPLAINT: - CHEST PAIN 03/25/2022 15:24 [facility] [place] TYPE: Emergency COMPLAINT: - DIZZINESS 03/17/2022 14:47 [facility] [place] TYPE: Emergency COMPLAINT: - SHOB/CHEST PAIN DIAGNOSES: - Essential (primary) hypertension - Dizziness and giddiness - 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 [place] TYPE: Emergency COMPLAINT: - FOOT SWELLING 02/28/2022 16:34 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 - Chest pain, unspecified - Type 2 diabetes mellitus without complications - Allergy status to other drugs, medicaments and biological substances 02/27/2022 23:16 [facility] [place] TYPE: Emergency COMPLAINT: - CHEST PAIN DIAGNOSES: - 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 - Obesity, unspecified - Old myocardial infarction - Latex allergy status - Allergy status to other drugs, medicaments and biological substances - Atherosclerotic heart disease of [place] coronary artery without angina pectoris - Essential (primary) hypertension - Other chest pain - Nicotine dependence, unspecified, uncomplicated - Type 2 diabetes mellitus without complications 02/01/2022 15:55 [facility] [place] TYPE: Emergency COMPLAINT: - MULTI COMPLAINTS KIDNEY ISSUE DIAGNOSES: - Atherosclerotic heart disease of [place] coronary artery without angina pectoris - Nicotine dependence, unspecified, uncomplicated - Allergy status to other drugs, medicaments and biological substances - Old myocardial infarction - 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 - Type 2 diabetes mellitus without complications - Urinary tract infection, site not specified - half-way (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 - Obesity, unspecified [...] status - Old myocardial infarction - Other skilled nursing (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 - Obesity, unspecified - Type 2 diabetes mellitus without complications - 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 - Atherosclerotic heart disease of [place] coronary artery without angina pectoris - Chest pain, unspecified - Nicotine dependence, unspecified, uncomplicated - Heart failure, unspecified 01/22/2022 17:16 [facility] [place] TYPE: Emergency COMPLAINT: - SHORTNESS OF BREATH DIAGNOSES: - Atherosclerotic heart disease of [place] coronary artery without angina pectoris - Nicotine dependence, cigarettes, uncomplicated - Old myocardial infarction - Urinary tract infection, site not specified - Type 2 diabetes mellitus without complications - Presence of coronary angioplasty implant and graft - Other skilled nursing (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 - Allergy to other foods - Heart failure, unspecified - half-way (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 - Hypertensive heart [...] unspecified, uncomplicated - Atherosclerotic heart disease of [place] coronary artery without angina pectoris - Latex allergy status - Chest pain, unspecified - Body mass index [BMI] 37.0-37.9, adult - Presence of coronary angioplasty implant and graft - Essential (primary) hypertension - Obesity, unspecified - Old myocardial infarction - Type 2 diabetes mellitus without complications - Allergy status to other drugs, medicaments and biological substances - 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 11/22/2021 12:13 [facility] [place] TYPE: Emergency COMPLAINT: - NECK SWELLING, L SHOULDER PAIN, HEADACHE DIAGNOSES: - Allergy status to other drugs, medicaments and biological substances - Other osteomyelitis, shoulder - Essential (primary) hypertension - Atherosclerotic heart disease of [place] coronary artery without angina pectoris - Chest pain, unspecified - Nicotine dependence, unspecified, uncomplicated - Type 2 diabetes mellitus without complications - Contact with and (suspected) exposure to COVID-19 - Anxiety disorder, unspecified - Other skilled nursing (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 - Latex allergy status [...] to COVID-19 - Atherosclerotic heart disease of [place] coronary artery without angina pectoris - 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 10/27/2021 14:55 [facility] [place] TYPE: Emergency COMPLAINT: - CHEST PAIN, HEADACHE, RASH ON UPPER TORSO DIAGNOSES: - Urinary tract infection, site not specified - 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 - Nicotine dependence, unspecified, uncomplicated - Allergy status to other drugs, medicaments and biological substances - Type 2 diabetes mellitus without complications - Essential (primary) hypertension - Other chest pain - Atherosclerotic heart disease of cab[place] coronary artery without angina pectoris - Latex allergy status - Obesity, unspecified - Old myocardial infarction 10/26/2021 15:56 [facility] [place] TYPE: Emergency COMPLAINT: - L SIDE PAIN AND MUMBNESS DIAGNOSES: - Obesity, unspecified - Urinary tract infection, site not specified - Allergy status to other drugs, medicaments and biological substances - Atherosclerotic heart disease of [place] coronary artery without angina pectoris - Old myocardial infarction - 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 - Nicotine dependence, unspecified, [...] biological substances - Essential (primary) hypertension - half-way (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 - 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 - Latex allergy status - Old myocardial infarction - Injury of conjunctiva and corneal abrasion without foreign body, left eye, initial encounter - Obesity, unspecified - Other specified disorders of eye and adnexa INPATIENT VISIT TRACKING (12 MO.) 11/23/2021 01:10 [facility] TYPE: General Medicine DIAGNOSES: - Type 2 diabetes mellitus with unspecified complications - Methicillin resistant Staphylococcus aureus infection, unspecified site - Bacteremia - Primary osteoarthritis, left shoulder - Type 2 diabetes mellitus with hyperglycemia - Other acute osteomyelitis, left shoulder - Atherosclerotic heart disease of [place] coronary artery without angina pectoris - Cutaneous abscess of right foot - Methicillin resistant Staphylococcus aureus infection as the cause of diseases classified elsewhere - Essential (primary) hypertension - Left Sternal Osteomyelitis - Cutaneous abscess of chest wall - Abscess of bursa, right ankle and foot [email or web address]
--- NOTE | 2022-04-08 16:50 | EKG ---
[facility] [address] [place] [address] Signed Normal sinus rhythm Low voltage QRS Borderline ECG When compared with ECG of 06-APR-2022 14:54, No significant change was found Confirmed by KAIT MERINO MD ([id number]) on 04/08/2022 4:50:15 PM Electronically Signed By: KAIT MERINO MD 04/08/22 1650 PATIENT NAME: WILBERT KUO SABINO Electrocardiogram DATE OF : 76 PHYSICIAN: KAIT MERINO MD REPORT #: [id number] REPORT IS CONFIDENTIAL AND NOT TO BE RELEASED WITHOUT AUTHORIZATION
== END 2022-04-08 15:27 | disposition home or self-care (01) ==
LOC: ED 14:29
DX: R07.89 Other chest pain (principal); F41.9 Anxiety disorder, unspecified; I10 Essential (primary) hypertension; E11.9 Type 2 diabetes mellitus without complications; E66.9 Obesity, unspecified; I25.10 Atherosclerotic heart disease of native coronary artery without angina pectoris; F17.200 Nicotine dependence, unspecified, uncomplicated; Z91.040 Latex allergy status; Z88.8 Allergy status to other drugs, medicaments and biological substances; Z91.018 Allergy to other foods; Z79.899 Other long term (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; Z68.38 Body mass index [BMI] 38.0-38.9, adult
CPT/HCPCS: 93005; 93010; A9270-GY; J1885

== ENCOUNTER 2022-04-13 12:58 | Emergency (ER) | payer OTHER ==
[~2022-04-13] VITALS: Ht 167.6 cm; Wt 108.9 kg
--- OUTSIDE RECORDS SUMMARY | 2022-04-13 13:00 | XMS ---
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 - Patient with suicidal and/or homicidal ideations eloped. - Patient eloped with IV in place. Details: PATIENT LWBS CRITERIA MET - [facility] - 2 Visits in 30 Days - 6 ED Visits in 6 Months - [facility] - Has Care Guidelines - PDMP CARE PROVIDERS SURENDRA CHAPMAN Internal Medicine 10/22/2020-Current PHONE: Unknown [place] has no Care Guidelines for this patient. Care History Medical/Surgical 10/29/2021 [facility] - Patient is currently established with [facility]. If patient is seen in the ED during business hours. Please contact CHWs at [facility]. Care Recommendation: This patient has had 5 or more Emergency Department visits in the last 12 months.\T\nbsp; Patient requires education on the scope and purpose of the ED as an acute care provider not a Primary Care Provider and should not be utilized for chronic conditions.\T\nbsp; These are guidelines and the provider should exercise clinical judgment when providing care. 02/23/2020 [facility] Patient has long history of canceling/rescheduling Clinic appointments.\T\nbsp; Left voice mail to follow up with PCP Dr. Chapman 12/20/2019 [facility] Patient has follow up visit with Dr. Chapman on 01/02/2020 [place] [facility] NOTE: Visits indicate total known visits. ED/UCC VISIT TRACKING (12 MO.) [facility] [place] [facility] COMPLAINT: - CHEST PAIN 04/08/2022 14:30 [facility] [place] TYPE: Emergency COMPLAINT: - SOB, CHEST PAIN, L ARM PAIN DIAGNOSES: - Anxiety disorder, unspecified - Latex allergy status - Allergy to other foods - Other alf (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 - Body mass index [BMI] 38.0-38.9, adult - Obesity, unspecified - Atherosclerotic heart disease of [place] coronary artery without angina pectoris - Precordial pain - Essential (primary) hypertension - Type 2 diabetes mellitus without complications - Other chest pain - Nicotine dependence, unspecified, uncomplicated - Allergy status to other drugs, medicaments and biological substances 04/06/2022 15:00 [facility] [place] TYPE: Emergency COMPLAINT: - CHEST PAIN 04/04/2022 16:19 [facility] [place] TYPE: Emergency COMPLAINT: - CHEST PAIN 03/26/2022 21:36 [facility] [place] TYPE: Emergency COMPLAINT: - CHEST PAIN DIAGNOSES: - Old myocardial infarction - Latex allergy status - Nicotine dependence, unspecified, uncomplicated - Contact with and (suspected) exposure to COVID-19 - Heart failure, unspecified - Allergy status to other drugs, medicaments and biological substances - Type 2 diabetes mellitus without complications - 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 - Hypertensive heart disease with heart failure - Chest pain, unspecified 03/25/2022 15:24 [facility] [place] TYPE: Emergency COMPLAINT: - DIZZINESS DIAGNOSES: - Obesity, unspecified - Other alf (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 - Type 2 diabetes mellitus without complications - jail (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 - Latex allergy status - Essential (primary) hypertension - Excessive and frequent menstruation with regular cycle - Nicotine dependence, unspecified, uncomplicated - Old myocardial infarction - Allergy status to other drugs, medicaments and biological substances - Atherosclerotic heart disease of [place] coronary artery without angina pectoris - Dizziness and giddiness 03/17/2022 14:47 [facility] [place] TYPE: Emergency COMPLAINT: - SHOB/CHEST PAIN DIAGNOSES: - Atherosclerotic heart disease of [place] coronary artery without angina pectoris - Other alf (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 - Old myocardial infarction - Nicotine dependence, unspecified, uncomplicated - Latex allergy status - Allergy status to other drugs, medicaments and biological substances - Essential (primary) hypertension - Dizziness and giddiness - jail (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 - Type 2 diabetes mellitus without complications 03/14/2022 16:52 [facility] [place] [place] TYPE: Emergency COMPLAINT: - FOOT SWELLING 02/28/2022 16:34 [facility] [place] [facility] [place] TYPE: Emergency COMPLAINT: - [...] myocardial infarction - Atherosclerotic heart disease of [place] coronary artery without angina pectoris - Other alf (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 02/27/2022 23:[address] [facility] [place]: Emergency COMPLAINT: - CHEST PAIN DIAGNOSES: - Allergy status to other drugs, medicaments and biological substances - Atherosclerotic heart disease of [place] coronary artery without angina pectoris - Essential (primary) hypertension - Other chest pain - Nicotine dependence, unspecified, uncomplicated - Type 2 diabetes mellitus without complications - jail (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 - Obesity, unspecified [...] - Dysuria - Atherosclerotic heart disease of [place] coronary artery without angina pectoris - Nicotine dependence, unspecified, uncomplicated - Allergy status to other drugs, medicaments and biological substances - Old myocardial infarction - 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 - Type 2 diabetes mellitus without complications 01/24/2022 14:59 [facility] [place] TYPE: Emergency COMPLAINT: - CHEST PAIN, SOB, SWELLING ANKLES DIAGNOSES: - Obesity, unspecified - Type 2 diabetes mellitus without complications - jail (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 - Atherosclerotic heart disease of [place] coronary artery without angina pectoris - Chest pain, unspecified - Nicotine dependence, unspecified, uncomplicated - Heart failure, unspecified - Hypertensive heart disease with heart failure - Allergy status to other drugs, medicaments and biological substances - Latex allergy status - Old myocardial infarction - Other alf (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 01/22/2022 17:16 [facility] [...] to COVID-19 - Atherosclerotic heart disease of [place] coronary artery without angina pectoris - Nicotine dependence, cigarettes, uncomplicated - Old myocardial infarction - Urinary tract infection, site not specified - Type 2 diabetes mellitus without complications - Presence of coronary angioplasty implant and graft - 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 01/03/2022 14:57 [facility] [...] unspecified, uncomplicated - Atherosclerotic heart disease of [place] coronary artery without angina pectoris - Latex allergy status - Chest pain, unspecified 11/22/2021 12:13 [facility] [place] TYPE: Emergency COMPLAINT: - NECK SWELLING, L SHOULDER PAIN, HEADACHE DIAGNOSES: - Type 2 diabetes mellitus without complications - Contact with and (suspected) exposure to COVID-19 - Anxiety disorder, unspecified - 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 - Latex allergy status - Obesity, unspecified - Old myocardial infarction - Allergy status to other drugs, medicaments and biological substances - Other osteomyelitis, shoulder - Essential (primary) hypertension - Atherosclerotic heart disease of [place] coronary artery without angina pectoris - Chest [...] to COVID-19 - Atherosclerotic heart disease of [place] coronary artery without angina pectoris - 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 - Latex allergy status - Cervicalgia - Nicotine dependence, unspecified, uncomplicated - Myositis, unspecified - Obesity, unspecified 10/27/2021 14:55 [facility] [place] TYPE: Emergency COMPLAINT: - CHEST PAIN, HEADACHE, RASH ON UPPER TORSO DIAGNOSES: - Essential (primary) hypertension - Other chest pain - Atherosclerotic heart disease of [place] coronary artery without angina pectoris - Latex [...] SIDE PAIN AND MUMBNESS DIAGNOSES: - Other alf (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 [...] biological substances - Atherosclerotic heart disease of [place] coronary artery without angina pectoris - Old myocardial infarction 09/03/2021 16:38 [facility] [place] TYPE: Emergency COMPLAINT: - EYE PROBLEM DIAGNOSES: - 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
--- NOTE | 2022-04-13 21:15 | EKG ---
[facility] [address] [facility] [place] [address] Signed Normal sinus rhythm Low voltage QRS Borderline ECG Confirmed by Rohini Louise MD () on 04/13/2022 9:14:52 PM Electronically Signed By: ROHINI LOUISE MD 04/13/222114 PATIENT NAME: WILBERT KUO Electrocardiogram DATE OF : 76 PHYSICIAN: ROHINI LOUISE MD REPORT #: [id number] REPORT IS CONFIDENTIAL AND NOT TO BE RELEASED WITHOUT AUTHORIZATION
== END 2022-04-13 17:44 | disposition home or self-care (01) ==
LOC: ED 12:58
DX: R07.9 Chest pain, unspecified (principal); I25.10 Atherosclerotic heart disease of native coronary artery without angina pectoris; I25.2 Old myocardial infarction; I10 Essential (primary) hypertension; E11.9 Type 2 diabetes mellitus without complications; F17.200 Nicotine dependence, unspecified, uncomplicated; Z91.018 Allergy to other foods; Z88.8 Allergy status to other drugs, medicaments and biological substances; Z91.040 Latex allergy status; Z79.899 Other long term (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
CPT/HCPCS: 36415; 71045; 80053; 83735; 84484; 85025; 93005; 93010; 99285-25

== ENCOUNTER 2022-04-19 11:44 | Emergency (ER) | payer OTHER ==
[~2022-04-19] VITALS: Ht 167.6 cm; Wt 108.9 kg
--- OUTSIDE RECORDS SUMMARY | 2022-04-19 11:46 | XMS ---
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 - Patient with suicidal and/or homicidal ideations eloped. - Patient eloped with IV in place. Details: PATIENT LWBS CRITERIA MET - [facility] - 2 Visits in 30 Days - PDMP - 6 ED Visits in 6 Months - [facility] - Has Care Guidelines CARE PROVIDERS SURENDRA CHAPMAN Internal Medicine 10/22/2020-Current PHONE: Unknown [place] has no Care Guidelines for this patient. Care History Medical/Surgical 10/29/2021 [facility] - Patient is currently established with [facility]. If patient is seen in the ED during business hours. Please contact CHWs at [facility]. Care Recommendation: This patient has had 5 or more Emergency Department visits in the last 12 months.\T\nbsp; Patient requires education on the scope and purpose of the ED as an acute care provider not a Primary Care Provider and should not be utilized for chronic conditions.\T\nbsp; These are guidelines and the provider should exercise clinical judgment when providing care. 02/23/2020 [facility] Patient has long history of canceling/rescheduling Clinic appointments.\T\nbsp; Left voice mail to follow up with PCP Dr. Chapman 12/20/2019 [facility] Patient has follow up visit with Dr. Chapman on 01/02/2020 [place] [facility] ([address] [facility] NOTE: Visits indicate total known visits. ED/UCC VISIT TRACKING (12 MO.) 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 - Nicotine dependence, unspecified, uncomplicated - Chest pain, unspecified - Old myocardial infarction - Allergy to other foods - Atherosclerotic heart disease of [place] coronary artery without angina pectoris - Type 2 diabetes mellitus without complications - Allergy status to other drugs, medicaments and biological substances - Essential (primary) hypertension - Latex allergy status 04/08/2022 14:30 [facility] [place] TYPE: Emergency COMPLAINT: - SOB, CHEST PAIN, L ARM PAIN DIAGNOSES: - Latex allergy status - Allergy to other foods - 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 - Body mass index [BMI] 38.0-38.9, adult - Obesity, unspecified - Atherosclerotic heart disease of [place] coronary artery without angina pectoris - Precordial pain - Essential (primary) hypertension - Type 2 diabetes mellitus without complications - Other chest pain - Nicotine dependence, unspecified, uncomplicated - Allergy status to other drugs, medicaments and biological substances - Anxiety disorder, unspecified 04/06/2022 15:00 [facility] [place] TYPE: Emergency COMPLAINT: - CHEST PAIN DIAGNOSES: - Nicotine dependence, unspecified, uncomplicated - Type 2 diabetes mellitus without complications - Obesity, unspecified - Latex allergy status - 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 - Chest pain, unspecified - Allergy status to other drugs, medicaments and biological substances - Essential (primary) hypertension - Old myocardial infarction - 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 - Atherosclerotic heart disease of [place] coronary artery without angina pectoris 04/04/2022 16:19 [facility] [place] TYPE: Emergency COMPLAINT: - CHEST PAIN DIAGNOSES: - Type 2 diabetes mellitus without complications - [facility] (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 of aspirin - Allergy to other foods - [facility] (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 - Essential (primary) hypertension - Latex allergy status - Other penitentiary (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 - Nicotine dependence, unspecified, uncomplicated - Atherosclerotic heart disease of [place] coronary artery without angina pectoris - Chest pain, unspecified - Allergy status to other drugs, medicaments and biological substances 03/26/2022 21:36 [facility] [place] TYPE: Emergency COMPLAINT: - CHEST PAIN DIAGNOSES: - Latex allergy status - Nicotine dependence, unspecified, uncomplicated - Contact with and (suspected) exposure to COVID-19 - Heart failure, unspecified - Allergy status to other drugs, medicaments and biological substances - Type 2 diabetes mellitus without complications - 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 - Hypertensive heart disease with heart failure - Chest pain, unspecified - Old myocardial infarction 03/25/2022 15:24 [facility] [place] TYPE: Emergency COMPLAINT: - DIZZINESS DIAGNOSES: - 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 - Type 2 diabetes mellitus without complications - 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 - Latex allergy status - Essential (primary) hypertension - Excessive and frequent menstruation with regular cycle - Nicotine dependence, unspecified, uncomplicated - Old myocardial infarction - Allergy status to other drugs, medicaments and biological substances - Atherosclerotic heart disease of [place] coronary artery without angina pectoris - Dizziness and giddiness - Obesity, unspecified 03/17/2022 14:47 [facility] [place] TYPE: Emergency COMPLAINT: - SHOB/CHEST PAIN DIAGNOSES: - Other penitentiary (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 - Old myocardial infarction - Nicotine dependence, unspecified, uncomplicated - Latex allergy status - Allergy status to other drugs, medicaments and biological substances - Essential (primary) hypertension - Dizziness and giddiness - [facility] (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 - Type 2 diabetes mellitus without complications - Atherosclerotic heart disease of [place] coronary artery without angina pectoris 03/14/2022 16:52 [facility] [place] TYPE: Emergency COMPLAINT: - FOOT SWELLING 02/28/2022 16:34 [facility] [place] TYPE: Emergency COMPLAINT: - CHEST PAIN DIAGNOSES: - Allergy status to other antibiotic agents - Latex allergy status - [facility] (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 - Chest pain, unspecified - Type 2 diabetes mellitus without complications - Allergy status to other drugs, medicaments and biological substances - Essential (primary) hypertension - Obesity, unspecified - Old myocardial infarction - Atherosclerotic heart disease of [place] coronary artery without angina pectoris - 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 - Nicotine dependence, unspecified, uncomplicated 02/27/2022 23:16 [facility] [place] TYPE: Emergency COMPLAINT: - CHEST PAIN DIAGNOSES: - Atherosclerotic heart disease of [place] coronary artery without angina pectoris - Essential (primary) hypertension - Other chest pain - Nicotine dependence, unspecified, uncomplicated - Type 2 diabetes mellitus without complications - 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 - Obesity, unspecified - Old myocardial infarction - Latex allergy status - Allergy status to other drugs, medicaments and biological substances 02/01/2022 15:55 [facility] [place] TYPE: Emergency COMPLAINT: - MULTI COMPLAINTS KIDNEY ISSUE DIAGNOSES: - [facility] (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 - Obesity, unspecified - Latex allergy status - Body mass index [BMI] 37.0-37.9, adult - Essential (primary) hypertension - Dysuria - Atherosclerotic heart disease of [place] coronary artery without angina pectoris - Nicotine dependence, unspecified, uncomplicated - Allergy status to other drugs, medicaments and biological substances - Old myocardial infarction - Other penitentiary (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 - Type 2 diabetes mellitus without complications - Urinary tract infection, site not specified 01/24/2022 14:59 [facility] [place] TYPE: Emergency COMPLAINT: - CHEST PAIN, SOB, SWELLING ANKLES DIAGNOSES: - Type 2 diabetes mellitus without complications - [facility] (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 - Atherosclerotic heart disease of [place] coronary artery without angina pectoris - Chest pain, unspecified - Nicotine dependence, unspecified, uncomplicated - Heart failure, unspecified - Hypertensive heart disease with heart failure - Allergy status to other drugs, medicaments and biological substances - Latex allergy status - Old myocardial infarction - Other penitentiary (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 - Obesity, unspecified 01/22/2022 17:16 [facility] [place] TYPE: Emergency COMPLAINT: - SHORTNESS OF BREATH DIAGNOSES: - Heart failure, unspecified - [facility] (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 - Hypertensive heart disease with heart failure - Allergy status to other drugs, medicaments and biological substances - Shortness of breath - Latex allergy status - Contact with and (suspected) exposure to COVID-19 - Atherosclerotic heart disease of [place] coronary artery without angina pectoris - Nicotine dependence, cigarettes, uncomplicated - Old myocardial infarction - Urinary tract infection, site not specified - Type 2 diabetes mellitus without complications - Presence of coronary angioplasty implant and graft - Other penitentiary (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 - Allergy to other foods 01/03/2022 14:57 [facility] [place] TYPE: Emergency COMPLAINT: - CHEST PAIN, L ARM NUMBNESS DIAGNOSES: - Presence of coronary angioplasty implant and graft - Essential (primary) hypertension - Obesity, unspecified - Old myocardial infarction - Type 2 diabetes mellitus without complications - Allergy status to other drugs, medicaments and biological substances - 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 - Osteomyelitis, unspecified - Allergy to other foods - Nicotine dependence, unspecified, uncomplicated - Atherosclerotic heart disease of [place] coronary artery without angina pectoris - Latex allergy status - Chest pain, unspecified - Body mass index [BMI] 37.0-37.9, adult 11/22/2021 12:13 [facility] [place] TYPE: Emergency COMPLAINT: - NECK SWELLING, L SHOULDER PAIN, HEADACHE DIAGNOSES: - Contact with and (suspected) exposure to COVID-19 - Anxiety disorder, unspecified - 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 - Latex allergy status - Obesity, unspecified - Old myocardial infarction - Allergy status to other drugs, medicaments and biological substances - Other osteomyelitis, shoulder - Essential (primary) hypertension - Atherosclerotic heart disease of [place] coronary artery without angina pectoris - Chest pain, unspecified - Nicotine dependence, unspecified, uncomplicated - Type 2 diabetes mellitus without complications 11/02/2021 15:05 [facility] [place] TYPE: Emergency COMPLAINT: - POSS ALLERGIC REACTION DIAGNOSES: - Essential (primary) hypertension - Old myocardial infarction - Allergy status to other drugs, medicaments and biological substances - Contact with and (suspected) exposure to COVID-19 - Atherosclerotic heart disease of [place] coronary artery without angina pectoris - Other penitentiary (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 - Latex allergy status - Cervicalgia - Nicotine dependence, unspecified, uncomplicated - Myositis, unspecified - Obesity, unspecified - Type 2 diabetes mellitus without complications 10/27/2021 14:55 [facility] [place] TYPE: Emergency COMPLAINT: - CHEST PAIN, HEADACHE, RASH ON UPPER TORSO DIAGNOSES: - Other chest pain - Atherosclerotic heart disease of [place] coronary artery without angina pectoris - Latex allergy status - Obesity, unspecified - Old myocardial infarction - Urinary tract infection, site not specified - 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 - Nicotine dependence, unspecified, uncomplicated - Allergy status to other drugs, medicaments and biological substances - Type 2 diabetes mellitus without complications - Essential (primary) hypertension 10/26/2021 15:56 [facility] [place] TYPE: Emergency COMPLAINT: - L SIDE PAIN AND MUMBNESS DIAGNOSES: - Nicotine dependence, unspecified, uncomplicated - Latex allergy status - Other chest pain - Essential (primary) hypertension - Type 2 diabetes mellitus without complications - Contact with and (suspected) exposure to COVID-19 - Obesity, unspecified - Urinary tract infection, site not specified - Allergy status to other drugs, medicaments and biological substances - Atherosclerotic heart disease of [place] coronary artery without angina pectoris - Old myocardial infarction - 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 09/03/2021 16:38 [facility] [place] TYPE: Emergency COMPLAINT: - EYE PROBLEM DIAGNOSES: - Latex allergy status - Old myocardial infarction - Injury of conjunctiva and corneal abrasion without foreign body, left eye, initial encounter - Obesity, unspecified - Other specified disorders of eye and adnexa - Type 2 diabetes mellitus without complications - Nicotine dependence, unspecified, uncomplicated - Allergy status to other drugs, medicaments and biological substances - Essential (primary) hypertension - [facility] (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 - 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
--- NOTE | 2022-04-20 12:24 | EKG ---
[facility] [address] [facility] [place], [place] [address] Signed Normal sinus rhythm Normal ECG No previous ECGs available Confirmed by KAYLYNN MANTILLA MD ([id number]) on 04/20/2022 12:24:19 PM Electronically Signed By: KAYLYNN MANTILLA MD 04/20/22 1224 PATIENT NAME: WILBERT KUO Electrocardiogram DATE OF : 76 PHYSICIAN: KAYLYNN MANTILLA MD REPORT #: [id number] REPORT IS CONFIDENTIAL AND NOT TO BE RELEASED WITHOUT AUTHORIZATION
== END 2022-04-19 14:39 | disposition home or self-care (01) ==
LOC: ED 11:44
DX: R07.89 Other chest pain (principal); I10 Essential (primary) hypertension; E11.9 Type 2 diabetes mellitus without complications; E66.9 Obesity, unspecified; I25.10 Atherosclerotic heart disease of native coronary artery without angina pectoris; I25.2 Old myocardial infarction; F17.200 Nicotine dependence, unspecified, uncomplicated; Z88.8 Allergy status to other drugs, medicaments and biological substances; Z91.040 Latex allergy status; Z79.899 Other long term (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; Z79.4 Long term (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
CPT/HCPCS: 36415; 71045; 80048; 84484; 85025; 93005; 93010; 99285-25

== ENCOUNTER 2023-02-04 06:54 | Inpatient (IN) | payer OTHER ==
[~2023-02-04] VITALS: Ht 167.6 cm; Wt 124.4 kg
--- OUTSIDE RECORDS SUMMARY | ~2023-02-04 | XMS | Continuity of Care Document ---
Demographics + + + | Address | [address] | | | [place] [address] | + + + | Preferred Language | Unknown | + + + | Marital Status | Legally | + + + | Baptism Affiliation | Unknown | + + + | Race | White | + + + | Ethnic Group | Not or | + + + Author + + + | Author | [facility] | + + + | Organization | [facility] | + + + | Address | [address] | | | [place] [address] | + + + | Phone | | + + + Care Team Providers + + + + | Care Head Batcher Name | Role | Phone | + + + + Unavailable | Unavailable | + + + + Unavailable | Unavailable | + + + + Unavailable | Unavailable | + + + + Unavailable | Unavailable | + + + + Unavailable | Unavailable | + + + + Unavailable | Unavailable | + + + + Unavailable | Unavailable | + + + + Unavailable | Unavailable | + + + + Unavailable | Unavailable | + + + + Unavailable | Unavailable | + + + + Unavailable | Unavailable | + + + + Allergies and Intolerances + + + + + + | date | description | facility | reaction | severity | + + + + + + | (no date) | Urticaria | [facility] | (no reaction) | (no severity) | | [facility] | | | + + + + + + | (no date) | Latex | [facility] | (no reaction) | (no severity) | | [facility] | | | + + + + + + | (no date) | latex | [facility] | (no reaction) | (no severity) | | [facility] | | | + + + + + + | (no date) | Mild | [facility] | (no reaction) | (no severity) | | | [facility] | | | + + + + + + | (no date) | Apricot | [facility] | (no reaction) | (no severity) | | | [facility] | | | + + + + + + | (no date) | apricot | [facility] | (no reaction) | (no severity) | | | [facility] | | | + + + + + + | (no date) | Latex | [facility] | (no reaction) | (no severity) | | [facility] | | | + + + + + + | (no date) | Anaphylaxis | [facility] | (no reaction) | (no severity) | | | [facility] | | | + + + + + + | (no date) | Metformin | [facility] | (no reaction) | (no severity) | | [facility] | | | + + + + + + | (no date) | metformin | [facility] | (no reaction) | (no severity) | | | [facility] | | | + + + + + + | (no date) | Metformin | [facility] | (no reaction) | (no severity) | | | [facility] | | | + + + + + + | (no date) | Latex | [facility] | (no reaction) | (no severity) | | | [facility] | | | + + + + + + Encounters No information. Functional Status No information. Immunizations + + + + | date | description | facility | + + + + | 2022-01-03 00:00 | No vaccine administered | [facility] | + + + + | 2022-01-22 00:00 | No vaccine administered | [facility] | + + + + | 2022-01-24 00:00 | No vaccine administered | [facility] | + + + + | 2022-02-01 00:00 | No vaccine administered | [facility] | + + + + | 2022-02-28 00:00 | No vaccine administered | [facility] | + + + + | 2022-03-14 00:00 | No vaccine administered | [facility] | + + + + | 2022-03-17 00:00 | No vaccine administered | [facility] | + + + + | 2022-03-25 00:00 | No vaccine administered | [facility] | + + + + | 2022-03-26 00:00 | No vaccine administered | [facility] | + + + + | 2022-04-04 00:00 | No vaccine administered | [facility] | + + + + | 2022-04-06 00:00 | No vaccine administered | [facility] | + + + + | 2022-04-08 00:00 | No vaccine administered | [facility] | + + + + | 2022-04-13 00:00 | No vaccine administered | [facility] | + + + + | 2022-04-19 00:00 | No vaccine administered | [facility] | + + + + Medications + + + + | date | description | facility | + + + + | 2022-03-17 00:00 | ONDANSETRON | [facility] | + + + + | 2022-03-17 00:00 | ONDANSETRON | [facility] | + + + + | 2022-03-17 00:00 | ONDANSETRON | [facility] | + + + + | 2022-03-17 00:00 | ONDANSETRON | [facility] | + + + + | 2022-03-17 00:00 | ONDANSETRON | [facility] | + + + + | 2022-03-17 00:00 | ondansetron 4 MG | [facility] | | | Disintegrating Oral Tablet | | + + + + | 2022-01-05 00:00 | MUPIROCIN | [facility] | + + + + | 2022-01-26 00:00 | MUPIROCIN | [facility] | + + + + | 2022-01-29 00:00 | MUPIROCIN | [facility] | + + + + | 2022-02-08 00:00 | MUPIROCIN | [facility] | + + + + | 2022-02-28 00:00 | MUPIROCIN | [facility] | + + + + | 2022-02-28 00:00 | MUPIROCIN | [facility] | + + + + | 2022-03-14 00:00 | MUPIROCIN | [facility] | + + + + | 2022-03-17 00:00 | MUPIROCIN | [facility] | + + + + | 2022-03-25 00:00 | MUPIROCIN | [facility] | + + + + | 2022-03-26 00:00 | MUPIROCIN | [facility] | + + + + | 2022-04-04 00:00 | MUPIROCIN | [facility] | + + + + | 2022-04-06 00:00 | MUPIROCIN | [facility] | + + + + | 2022-04-08 00:00 | MUPIROCIN | [facility] | + + + + | 2022-04-13 00:00 | MUPIROCIN | [facility] | + + + + | 2022-04-19 00:00 | MUPIROCIN | [facility] | + + + + | 2022-01-03 00:00 | mupirocin 0.02 MG/MG | [facility] | | | Topical Ointment | | + + + + | 2022-01-22 00:00 | mupirocin 0.02 MG/MG | [facility] | | | Topical Ointment | | + + + + | 2022-01-24 00:00 | mupirocin 0.02 MG/MG | [facility] | | | Topical Ointment | | + + + + | 2022-02-01 00:00 | mupirocin 0.02 MG/MG | [facility] | | | Topical Ointment | | + + + + | 2022-02-28 00:00 | mupirocin 0.02 MG/MG | [facility] | | | Topical Ointment | | + + + + | 2022-03-14 00:00 | mupirocin 0.02 MG/MG | [facility] | | | Topical Ointment | | + + + + | 2022-03-17 00:00 | mupirocin 0.02 MG/MG | [facility] | | | Topical Ointment | | + + + + | 2022-03-25 00:00 | mupirocin 0.02 MG/MG | [facility] | | | Topical Ointment | | + + + + | 2022-03-26 00:00 | mupirocin 0.02 MG/MG | [facility] | | | Topical Ointment | | + + + + | 2022-04-04 00:00 | mupirocin 0.02 MG/MG | [facility] | | | Topical Ointment | | + + + + | 2022-04-06 00:00 | mupirocin 0.02 MG/MG | [facility] | | | Topical Ointment | | + + + + | 2022-04-08 00:00 | mupirocin 0.02 MG/MG | [facility] | | | Topical Ointment | | + + + + | 2022-04-13 00:00 | mupirocin 0.02 MG/MG | [facility] | | | Topical Ointment | | + + + + | 2022-04-19 00:00 | mupirocin 0.02 MG/MG | [facility] | | | Topical Ointment | | + + + + | 2020-02-22 00:00 | PHENAZOPYRIDINE HCL | [facility] | + + + + | 2020-02-22 00:00 | PHENAZOPYRIDINE HCL | [facility] | + + + + | 2020-02-22 00:00 | PHENAZOPYRIDINE HCL | [facility] | + + + + | 2020-02-22 00:00 | PHENAZOPYRIDINE HCL | [facility] | + + + + | 2020-02-22 00:00 | PHENAZOPYRIDINE HCL | [facility] | + + + + | 2020-02-22 00:00 | PHENAZOPYRIDINE HCL | [facility] | + + + + | 2020-02-22 00:00 | PHENAZOPYRIDINE HCL | [facility] | + + + + | 2020-02-22 00:00 | PHENAZOPYRIDINE HCL | [facility] | + + + + | 2020-02-22 00:00 | PHENAZOPYRIDINE HCL | [facility] | + + + + | 2020-02-22 00:00 | phenazopyridine | [facility] | | | hydrochloride 100 MG Oral | | | | Tablet [Pyridium] | | + + + + | 2022-01-05 00:00 | TICAGRELOR | [facility] | + + + + | 2022-01-26 00:00 | TICAGRELOR | [facility] | + + + + | 2022-01-29 00:00 | TICAGRELOR | [facility] | + + + + | 2022-02-08 00:00 | TICAGRELOR | [facility] | + + + + | 2022-02-28 00:00 | TICAGRELOR | [facility] | + + + + | 2022-02-28 00:00 | TICAGRELOR | [facility] | + + + + | 2022-03-14 00:00 | TICAGRELOR | [facility] | + + + + | 2022-03-17 00:00 | TICAGRELOR | [facility] | + + + + | 2022-03-25 00:00 | TICAGRELOR | [facility] | + + + + | 2022-03-26 00:00 | TICAGRELOR | [facility] | + + + + | 2022-04-04 00:00 | TICAGRELOR | [facility] | + + + + | 2022-04-06 00:00 | TICAGRELOR | [facility] | + + + + | 2022-04-08 00:00 | TICAGRELOR | [facility] | + + + + | 2022-04-13 00:00 | TICAGRELOR | [facility] | + + + + | 2022-04-19 00:00 | TICAGRELOR | [facility] | + + + + | 2022-01-03 00:00 | ticagrelor 90 MG Oral | [facility] | | | Tablet [Brilinta] | | + + + + | 2022-01-22 00:00 | ticagrelor 90 MG Oral | [facility] | | | Tablet [Brilinta] | | + + + + | 2022-01-24 00:00 | ticagrelor 90 MG Oral | [facility] | | | Tablet [Brilinta] | | + + + + | 2022-02-01 00:00 | ticagrelor 90 MG Oral | [facility] | | | Tablet [Brilinta] | | + + + + | 2022-02-28 00:00 | ticagrelor 90 MG Oral | [facility] | | | Tablet [Brilinta] | | + + + + | 2022-03-14 00:00 | ticagrelor 90 MG Oral | [facility] | | | Tablet [Brilinta] | | + + + + | 2022-03-17 00:00 | ticagrelor 90 MG Oral | [facility] | | | Tablet [Brilinta] | | + + + + | 2022-03-25 00:00 | ticagrelor 90 MG Oral | [facility] | | | Tablet [Brilinta] | | + + + + | 2022-03-26 00:00 | ticagrelor 90 MG Oral | [facility] | | | Tablet [Brilinta] | | + + + + | 2022-04-04 00:00 | ticagrelor 90 MG Oral | [facility] | | | Tablet [Brilinta] | | + + + + | 2022-04-06 00:00 | ticagrelor 90 MG Oral | [facility] | | | Tablet [Brilinta] | | + + + + | 2022-04-08 00:00 | ticagrelor 90 MG Oral | [facility] | | | Tablet [Brilinta] | | + + + + | 2022-04-13 00:00 | ticagrelor 90 MG Oral | [facility] | | | Tablet [Brilinta] | | + + + + | 2022-04-19 00:00 | ticagrelor 90 MG Oral | [facility] | | | Tablet [Brilinta] | | + + + + | 2014-11-22 00:00 | BECLOMETHASONE | [facility] | | | DIPROPIONATE | | + + + + | 2014-11-22 00:00 | BECLOMETHASONE | [facility] | | | DIPROPIONATE | | + + + + | 2014-11-22 00:00 | BECLOMETHASONE | [facility] | | | DIPROPIONATE | | + + + + | 2014-11-22 00:00 | BECLOMETHASONE | [facility] | | | DIPROPIONATE | | + + + + | 2014-11-22 00:00 | BECLOMETHASONE | [facility] | | | DIPROPIONATE | | + + + + | 2014-11-22 00:00 | BECLOMETHASONE | [facility] | | | DIPROPIONATE | | + + + + | 2014-11-22 00:00 | BECLOMETHASONE | [facility] | | | DIPROPIONATE | | + + + + | 2014-11-22 00:00 | BECLOMETHASONE | [facility] | | | DIPROPIONATE | | + + + + | 2014-11-22 00:00 | BECLOMETHASONE | [facility] | | | DIPROPIONATE | | + + + + | 2014-11-22 00:00 | beclomethasone | [facility] | | | dipropionate 0.04 MG/ACTUAT | | | | Metered Dose Inha | | + + + + | 2022-01-26 00:00 | NITROFURANTOIN | [facility] | | | MONOHYD/M-CRYST | | + + + + | 2022-01-29 00:00 | NITROFURANTOIN | [facility] | | | MONOHYD/M-CRYST | | + + + + | 2022-02-08 00:00 | NITROFURANTOIN | [facility] | | | MONOHYD/M-CRYST | | + + + + | 2022-01-24 00:00 | nitrofurantoin, | [facility] | | | macrocrystals 25 MG / | | | | nitrofurantoin, monohy | | + + + + | 2022-02-01 00:00 | nitrofurantoin, | [facility] | | | macrocrystals 25 MG / | | | | nitrofurantoin, monohy | | + + + + | 2018-10-18 00:00 | DOXYCYCLINE HYCLATE | [facility] | + + + + | 2018-10-18 00:00 | DOXYCYCLINE HYCLATE | [facility] | + + + + | 2018-10-18 00:00 | DOXYCYCLINE HYCLATE | [facility] | + + + + | 2018-10-18 00:00 | DOXYCYCLINE HYCLATE | [facility] | + + + + | 2018-10-18 00:00 | DOXYCYCLINE HYCLATE | [facility] | + + + + | 2018-10-18 00:00 | DOXYCYCLINE HYCLATE | [facility] | + + + + | 2018-10-18 00:00 | DOXYCYCLINE HYCLATE | [facility] | + + + + | 2018-10-18 00:00 | DOXYCYCLINE HYCLATE | [facility] | + + + + | 2018-10-18 00:00 | DOXYCYCLINE HYCLATE | [facility] | + + + + | 2019-04-05 00:00 | DOXYCYCLINE HYCLATE | [facility] | + + + + | 2019-04-05 00:00 | DOXYCYCLINE HYCLATE | [facility] | + + + + | 2019-04-05 00:00 | DOXYCYCLINE HYCLATE | [facility] | + + + + | 2019-04-05 00:00 | DOXYCYCLINE HYCLATE | [facility] | + + + + | 2019-04-05 00:00 | DOXYCYCLINE HYCLATE | [facility] | + + + + | 2019-04-05 00:00 | DOXYCYCLINE HYCLATE | [facility] | + + + + | 2019-04-05 00:00 | DOXYCYCLINE HYCLATE | [facility] | + + + + | 2019-04-05 00:00 | DOXYCYCLINE HYCLATE | [facility] | + + + + | 2019-04-05 00:00 | DOXYCYCLINE HYCLATE | [facility] | + + + + | 2020-09-16 00:00 | DOXYCYCLINE HYCLATE | [facility] | + + + + | 2020-09-16 00:00 | DOXYCYCLINE HYCLATE | [facility] | + + + + | 2020-09-16 00:00 | DOXYCYCLINE HYCLATE | [facility] | + + + + | 2020-09-16 00:00 | DOXYCYCLINE HYCLATE | [facility] | + + + + | 2020-09-16 00:00 | DOXYCYCLINE HYCLATE | [facility] | + + + + | 2020-09-16 00:00 | DOXYCYCLINE HYCLATE | [facility] | + + + + | 2020-09-16 00:00 | DOXYCYCLINE HYCLATE | [facility] | + + + + | 2020-09-16 00:00 | DOXYCYCLINE HYCLATE | [facility] | + + + + | 2020-09-16 00:00 | DOXYCYCLINE HYCLATE | [facility] | + + + + | 2018-10-18 00:00 | doxycycline hyclate 100 MG | [facility] | | | Oral Capsule | | + + + + | 2019-04-05 00:00 | doxycycline hyclate 100 MG | [facility] | | | Oral Capsule | | + + + + | 2020-09-16 00:00 | doxycycline hyclate 100 MG | [facility] | | | Oral Capsule | | + + + + | 2022-01-05 00:00 | DOXYCYCLINE MONOHYDRATE | [facility] | + + + + | 2022-01-03 00:00 | doxycycline monohydrate | [facility] | | | 100 MG Oral Capsule | | + + + + | 2022-01-22 00:00 | doxycycline monohydrate | [facility] | | | 100 MG Oral Capsule | | + + + + | 2022-01-03 00:00 | 3 ML insulin aspart, human | [facility] | | | 100 UNT/ML Cartridge | | | | [NovoLog] | | + + + + | 2022-01-22 00:00 | 3 ML insulin aspart, human | [facility] | | | 100 UNT/ML Cartridge | | | | [NovoLog] | | + + + + | 2022-01-24 00:00 | 3 ML insulin aspart, human | [facility] | | | 100 UNT/ML Cartridge | | | | [NovoLog] | | + + + + | 2022-02-01 00:00 | 3 ML insulin aspart, human | [facility] | | | 100 UNT/ML Cartridge | | | | [NovoLog] | | + + + + | 2022-02-28 00:00 | 3 ML insulin aspart, human | [facility] | | | 100 UNT/ML Cartridge | | | | [NovoLog] | | + + + + | 2022-03-14 00:00 | 3 ML insulin aspart, human | [facility] | | | 100 UNT/ML Cartridge | | | | [NovoLog] | | + + + + | 2022-03-17 00:00 | 3 ML insulin aspart, human | [facility] | | | 100 UNT/ML Cartridge | | | | [NovoLog] | | + + + + | 2022-03-25 00:00 | 3 ML insulin aspart, human | [facility] | | | 100 UNT/ML Cartridge | | | | [NovoLog] | | + + + + | 2022-03-26 00:00 | 3 ML insulin aspart, human | [facility] | | | 100 UNT/ML Cartridge | | | | [NovoLog] | | + + + + | 2022-04-04 00:00 | 3 ML insulin aspart, human | [facility] | | | 100 UNT/ML Cartridge | | | | [NovoLog] | | + + + + | 2022-04-06 00:00 | 3 ML insulin aspart, human | [facility] | | | 100 UNT/ML Cartridge | | | | [NovoLog] | | + + + + | 2022-04-08 00:00 | 3 ML insulin aspart, human | [facility] | | | 100 UNT/ML Cartridge | | | | [NovoLog] | | + + + + | 2022-04-13 00:00 | 3 ML insulin aspart, human | [facility] | | | 100 UNT/ML Cartridge | | | | [NovoLog] | | + + + + | 2022-04-19 00:00 | 3 ML insulin aspart, human | [facility] | | | 100 UNT/ML Cartridge | | | | [NovoLog] | | + + + + | 2022-01-05 00:00 | INSULIN ASPART | [facility] | + + + + | 2022-01-26 00:00 | INSULIN ASPART | [facility] | + + + + | 2022-01-29 00:00 | INSULIN ASPART | [facility] | + + + + | 2022-02-08 00:00 | INSULIN ASPART | [facility] | + + + + | 2022-02-28 00:00 | INSULIN ASPART | [facility] | + + + + | 2022-02-28 00:00 | INSULIN ASPART | [facility] | + + + + | 2022-03-14 00:00 | INSULIN ASPART | [facility] | + + + + | 2022-03-17 00:00 | INSULIN ASPART | [facility] | + + + + | 2022-03-25 00:00 | INSULIN ASPART | [facility] | + + + + | 2022-03-26 00:00 | INSULIN ASPART | [facility] | + + + + 2022-04-04 00:00 | INSULIN ASPART | [facility] | + + + + | 2022-04-06 00:00 | INSULIN ASPART | [facility] | + + + + | 2022-04-08 00:00 | INSULIN ASPART | [facility] | + + + + | 2022-04-13 00:00 | INSULIN ASPART | [facility] | + + + + | 2022-04-19 00:00 | INSULIN ASPART | [facility] | + + + + | 2022-01-03 00:00 | 3 ML insulin aspart, human | [facility] | | | 100 UNT/ML Pen Injector | | | | [NovoLog] | | + + + + | 2022-01-22 00:00 | 3 ML insulin aspart, human | [facility] | | | 100 UNT/ML Pen Injector | | | | [NovoLog] | | + + + + | 2022-01-24 00:00 | 3 ML insulin aspart, human | [facility] | | | 100 UNT/ML Pen Injector | | | | [NovoLog] | | + + + + | 2022-02-01 00:00 | 3 ML insulin aspart, human | [facility] | | | 100 UNT/ML Pen Injector | | | | [NovoLog] | | + + + + | 2022-02-28 00:00 | 3 ML insulin aspart, human | [facility] | | | 100 UNT/ML Pen Injector | | | | [NovoLog] | | + + + + | 2022-03-14 00:00 | 3 ML insulin aspart, human | [facility] | | | 100 UNT/ML Pen Injector | | | | [NovoLog] | | + + + + | 2022-03-17 00:00 | 3 ML insulin aspart, human | [facility] | | | 100 UNT/ML Pen Injector | | | | [NovoLog] | | + + + + | 2022-03-25 00:00 | 3 ML insulin aspart, human | [facility] | | | 100 UNT/ML Pen Injector | | | | [NovoLog] | | + + + + | 2022-03-26 00:00 | 3 ML insulin aspart, human | [facility] | | | 100 UNT/ML Pen Injector | | | | [NovoLog] | | + + + + | 2022-04-04 00:00 | 3 ML insulin aspart, human | [facility] | | | 100 UNT/ML Pen Injector | | | | [NovoLog] | | + + + + | 2022-04-06 00:00 | 3 ML insulin aspart, human | [facility] | | | 100 UNT/ML Pen Injector | | | | [NovoLog] | | + + + + | 2022-04-08 00:00 | 3 ML insulin aspart, human | [facility] | | | 100 UNT/ML Pen Injector | | | | [NovoLog] | | + + + + | 2022-04-13 00:00 | 3 ML insulin aspart, human | [facility] | | | 100 UNT/ML Pen Injector | | | | [NovoLog] | | + + + + | 2022-04-19 00:00 | 3 ML insulin aspart, human | [facility] | | | 100 UNT/ML Pen Injector | | | | [NovoLog] | | + + + + | 2022-01-05 00:00 | INSULIN ASPART | [facility] | + + + + | 2022-01-26 00:00 | INSULIN ASPART | [facility] | + + + + | 2022-01-29 00:00 | INSULIN ASPART | [facility] | + + + + | 2022-02-08 00:00 | INSULIN ASPART | [facility] | + + + + | 2022-02-28 00:00 | INSULIN ASPART | [facility] | + + + + | 2022-02-28 00:00 | INSULIN ASPART | [facility] | + + + + | 2022-03-14 00:00 | INSULIN ASPART | [facility] | + + + + | 2022-03-17 00:00 | INSULIN ASPART | [facility] [place] | + + + + | 2022-03-25 00:00 | INSULIN ASPART | [facility] [place] | + + + + | 2022-03-26 00:00 | INSULIN ASPART | [facility] [place] | + + + + | 2022-04-04 00:00 | INSULIN ASPART | [facility] [place] | + + + + | 2022-04-06 00:00 | INSULIN ASPART | [facility] [place] | + + + + | 2022-04-08 00:00 | INSULIN ASPART | [facility] [place] | + + + + | 2022-04-13 00:00 | INSULIN ASPART | [facility] [place] | + + + + | 2022-04-19 00:00 | INSULIN ASPART | [facility] [place] | + + + + | 2021-10-26 00:00 | CEPHALEXIN | [facility] [place] | + + + + | 2021-10-26 00:00 | CEPHALEXIN | [facility] [place] | + + + + 2021-10-26 00:00 | CEPHALEXIN | [facility] [place] | + + + + | 2021-10-26 00:00 | CEPHALEXIN | [facility] [place] | + + + + | 2021-10-26 00:00 | CEPHALEXIN | [facility] [place] | + + + + | 2021-10-26 00:00 | CEPHALEXIN | [facility] [place] | + + + + | 2021-10-26 00:00 | CEPHALEXIN | [facility] [place] | + + + + | 2021-10-26 00:00 | CEPHALEXIN | [facility] [place] | + + + + | 2021-10-26 00:00 | CEPHALEXIN | [facility] [place] | + + + + | 2022-02-01 00:00 | CEPHALEXIN | [facility] [place] | + + + + | 2021-10-26 00:00 | cephalexin 500 MG Oral | [facility] [place] | | | Tablet | | + + + + | 2022-02-01 00:00 | cephalexin 500 MG Oral | [facility] [place] | | | Tablet | | + + + + | 2013-12-03 00:00 | DICLOXACILLIN SODIUM | [facility] [place] | + + + + | 2013-12-03 00:00 | DICLOXACILLIN SODIUM | [facility] [place] | + + + + | 2013-12-03 00:00 | DICLOXACILLIN SODIUM | [facility] [place] | + + + + | 2013-12-03 00:00 | DICLOXACILLIN SODIUM | [facility] [place] | + + + + | 2013-12-03 00:00 | DICLOXACILLIN SODIUM | [facility] [place] | + + + + | 2013-12-03 00:00 | DICLOXACILLIN SODIUM | [facility] [place] | + + + + | 2013-12-03 00:00 | DICLOXACILLIN SODIUM | [facility] [place] | + + + + | 2013-12-03 00:00 | DICLOXACILLIN SODIUM | [facility] [place] | + + + + | 2013-12-03 00:00 | DICLOXACILLIN SODIUM | [facility] [place] | + + + + | 2013-12-03 00:00 | dicloxacillin 500 MG Oral | [facility] [place] | | | Capsule | | + + + + | 2022-02-28 00:00 | NITROGLYCERIN | [facility] [place] | + + + + | 2022-02-28 00:00 | NITROGLYCERIN | [facility] [place] | + + + + | 2022-03-14 00:00 | NITROGLYCERIN | [facility] [place] | + + + + | 2022-03-17 00:00 | NITROGLYCERIN | [facility] [place] | + + + + | 2022-03-25 00:00 | NITROGLYCERIN | [facility] [place] | + + + + | 2022-03-26 00:00 | NITROGLYCERIN | [facility] [place] | + + + + | 2022-04-04 00:00 | NITROGLYCERIN | [facility] [place] | + + + + | 2022-04-06 00:00 | NITROGLYCERIN | [facility] [place] | + + + + | 2022-04-08 00:00 | NITROGLYCERIN | [facility] [place] | + + + + | 2022-04-13 00:00 | NITROGLYCERIN | [facility] [place] | + + + + | 2022-04-19 00:00 | NITROGLYCERIN | [facility] [place] | + + + + | 2022-02-28 00:00 | nitroglycerin 0.4 MG | [facility] [place] | | | Sublingual Tablet | | + + + + | 2022-03-14 00:00 | nitroglycerin 0.4 MG | [facility] [place] | | | Sublingual Tablet | | + + + + | 2022-03-17 00:00 | nitroglycerin 0.4 MG | [facility] [place] | | | Sublingual Tablet | | + + + + | 2022-03-25 00:00 | nitroglycerin 0.4 MG | [facility] [place] | | | Sublingual Tablet | | + + + + | 2022-03-26 00:00 | nitroglycerin 0.4 MG | [facility] [place] | | | Sublingual Tablet | | + + + + | 2022-04-04 00:00 | nitroglycerin 0.4 MG | [facility] [place] | | | Sublingual Tablet | | + + + + | 2022-04-06 00:00 | nitroglycerin 0.4 MG | [facility] [place] | | | Sublingual Tablet | | + + + + | 2022-04-08 00:00 | nitroglycerin 0.4 MG | [facility] [place] | | | Sublingual Tablet | | + + + + | 2022-04-13 00:00 | nitroglycerin 0.4 MG | [facility] [place] | | | Sublingual Tablet | | + + + + | 2022-04-19 00:00 | nitroglycerin 0.4 MG | [facility] [place] | | | Sublingual Tablet | | + + + + | 2022-01-22 00:00 | FUROSEMIDE | [facility] [place] | + + + + | 2022-01-22 00:00 | FUROSEMIDE | [facility] [place] | + + + + | 2022-01-22 00:00 | FUROSEMIDE | [facility] [place] | + + + + | 2022-01-22 00:00 | FUROSEMIDE | [facility] [place] | + + + + | 2022-01-22 00:00 | FUROSEMIDE | [facility] [place] | + + + + | 2022-01-22 00:00 | FUROSEMIDE | [facility] [place] | + + + + | 2022-01-22 00:00 | FUROSEMIDE | [facility] [place] | + + + + | 2022-01-22 00:00 | FUROSEMIDE | [facility] [place] | + + + + | 2022-01-22 00:00 | FUROSEMIDE | [facility] [place] | + + + + | 2022-03-26 00:00 | FUROSEMIDE | [facility] [place] | + + + + | 2022-01-22 00:00 | furosemide 20 MG Oral | [facility] [place] | | | Tablet [Lasix] | | + + + + | 2022-03-26 00:00 | furosemide 20 MG Oral | [facility] [place] | | | Tablet [Lasix] | | + + + + | 2018-10-06 00:00 | NEOMYCIN/POLYMYXIN B | [facility] [place] | | | SULF/HC | | + + + + | 2018-10-06 00:00 | NEOMYCIN/POLYMYXIN B | [facility] [place] | | | SULF/HC | | + + + + | 2018-10-06 00:00 | NEOMYCIN/POLYMYXIN B | [facility] [place] | | | SULF/HC | | + + + + | 2018-10-06 00:00 | NEOMYCIN/POLYMYXIN B | [facility] [place] | | | SULF/HC | | + + + + | 2018-10-06 00:00 | NEOMYCIN/POLYMYXIN B | [facility] [place] | | | SULF/HC | | + + + + | 2018-10-06 00:00 | NEOMYCIN/POLYMYXIN B | [facility] [place] | | | SULF/HC | | + + + + | 2018-10-06 00:00 | NEOMYCIN/POLYMYXIN B | [facility] [place] | | | SULF/HC | | + + + + | 2018-10-06 00:00 | NEOMYCIN/POLYMYXIN B | [facility] [place] | | | SULF/HC | | + + + + | 2018-10-06 00:00 | NEOMYCIN/POLYMYXIN B | [facility] [place] | | | SULF/HC | | + + + + | 2018-10-06 00:00 | hydrocortisone 10 MG/ML / | [facility] [place] | | | neomycin 3.5 MG/ML / | | | | polymyxin B 1 | | + + + + | 2014-11-22 00:00 | FLUCONAZOLE | [facility] [place] | + + + + | 2014-11-22 00:00 | FLUCONAZOLE | [facility] [place] | + + + + | 2014-11-22 00:00 | FLUCONAZOLE | [facility] [place] | + + + + | 2014-11-22 00:00 | FLUCONAZOLE | [facility] [place] | + + + + | 2014-11-22 00:00 | FLUCONAZOLE | [facility] [place] | + + + + | 2014-11-22 00:00 | FLUCONAZOLE | [facility] [place] | + + + + | 2014-11-22 00:00 | FLUCONAZOLE | [facility] [place] | + + + + | 2014-11-22 00:00 | FLUCONAZOLE | [facility] [place] | + + + + | 2014-11-22 00:00 | FLUCONAZOLE | [facility] [place] | + + + + | 2014-11-22 00:00 | fluconazole 150 MG Oral | [facility] [place] | | | Tablet [Diflucan] | | + + + + | 2022-01-05 00:00 | NIFEdipine | [facility] [place] | + + + + | 2022-01-26 00:00 | NIFEdipine | [facility] [place] | + + + + | 2022-01-29 00:00 | NIFEdipine | [facility] [place] | + + + + | 2022-02-08 00:00 | NIFEdipine | [facility] [place] | + + + + | 2022-02-28 00:00 | NIFEdipine | [facility] [place] | + + + + | 2022-02-28 00:00 | NIFEdipine | [facility] [place] | + + + + | 2022-03-14 00:00 | NIFEdipine | [facility] [place] | + + + + | 2022-03-17 00:00 | NIFEdipine | [facility] [place] | + + + + | 2022-03-25 00:00 | NIFEdipine | [facility] [place] | + + + + | 2022-03-26 00:00 | NIFEdipine | [facility] [place] | + + + + | 2022-04-04 00:00 | NIFEdipine | [facility] [place] | + + + + | 2022-04-06 00:00 | NIFEdipine | [facility] [place] | + + + + | 2022-04-08 00:00 | NIFEdipine | [facility] [place] | + + + + | 2022-04-13 00:00 | NIFEdipine | [facility] [place] | + + + + | 2022-04-19 00:00 | NIFEdipine | [facility] [place] | + + + + | 2022-01-03 00:00 | Osmotic 24 HR nifedipine | [facility] [place] | | | 30 MG Extended Release Oral | | | | Tablet | | + + + + | 2022-01-22 00:00 | Osmotic 24 HR nifedipine | [facility] [place] | | | 30 MG Extended Release Oral | | | | Tablet | | + + + + | 2022-01-24 00:00 | Osmotic 24 HR nifedipine | [facility] [place] | | | 30 MG Extended Release Oral | | | | Tablet | | + + + + | 2022-02-01 00:00 | Osmotic 24 HR nifedipine | [facility] [place] | | | 30 MG Extended Release Oral | | | | Tablet | | + + + + | 2022-02-28 00:00 | Osmotic 24 HR nifedipine | [facility] [place] | | | 30 MG Extended Release Oral | | | | Tablet | | + + + + | 2022-03-14 00:00 | Osmotic 24 HR nifedipine | [facility] [place] | | | 30 MG Extended Release Oral | | | | Tablet | | + + + + | 2022-03-17 00:00 | Osmotic 24 HR nifedipine | [facility] [place] | | | 30 MG Extended Release Oral | | | | Tablet | | + + + + | 2022-03-25 00:00 | Osmotic 24 HR nifedipine | [facility] [place] | | | 30 MG Extended Release Oral | | | | Tablet | | + + + + | 2022-03-26 00:00 | Osmotic 24 HR nifedipine | [facility] [place] | | | 30 MG Extended Release Oral | | | | Tablet | | + + + + | 2022-04-04 00:00 | Osmotic 24 HR nifedipine | [facility] [place] | | | 30 MG Extended Release Oral | | | | Tablet | | + + + + | 2022-04-06 00:00 | Osmotic 24 HR nifedipine | [facility] [place] | | | 30 MG Extended Release Oral | | | | Tablet | | + + + + | 2022-04-08 00:00 | Osmotic 24 HR nifedipine | [facility] [place] | | | 30 MG Extended Release Oral | | | | Tablet | | + + + + | 2022-04-13 00:00 | Osmotic 24 HR nifedipine | [facility] [place] | | | 30 MG Extended Release Oral | | | | Tablet | | + + + + | 2022-04-19 00:00 | Osmotic 24 HR nifedipine | [facility] [place] | | | 30 MG Extended Release Oral | | | | Tablet | | + + + + | 2022-01-05 00:00 | NIFEdipine | [facility] [place] | + + + + | 2022-01-26 00:00 | NIFEdipine | [facility] [place] | + + + + | 2022-01-29 00:00 | NIFEdipine | [facility] [place] | + + + + | 2022-02-08 00:00 | NIFEdipine | [facility] [place] | + + + + | 2022-02-28 00:00 | NIFEdipine | [facility] [place] | + + + + | 2022-02-28 00:00 | NIFEdipine | [facility] [place] | + + + + | 2022-03-14 00:00 | NIFEdipine | [facility] [place] | + + + + | 2022-03-17 00:00 | NIFEdipine | [facility] [place] | + + + + | 2022-03-25 00:00 | NIFEdipine | [facility] [place] | + + + + | 2022-03-26 00:00 | NIFEdipine | [facility] [place] | + + + + | 2022-04-04 00:00 | NIFEdipine | [facility] [place] | + + + + | 2022-04-06 00:00 | NIFEdipine | [facility] [place] | + + + + | 2022-04-08 00:00 | NIFEdipine | [facility] [place] | + + + + | 2022-04-13 00:00 | NIFEdipine | [facility] [place] | + + + + | 2022-04-19 00:00 | NIFEdipine | [facility] [place] | + + + + | 2022-01-03 00:00 | Osmotic 24 HR nifedipine | [facility] [place] | | | 60 MG Extended Release Oral | | | | Tablet | | + + + + | 2022-01-22 00:00 | Osmotic 24 HR nifedipine | [facility] [place] | | | 60 MG Extended Release Oral | | | | Tablet | | + + + + | 2022-01-24 00:00 | Osmotic 24 HR nifedipine | [facility] [place] | | | 60 MG Extended Release Oral | | | | Tablet | | + + + + | 2022-02-01 00:00 | Osmotic 24 HR nifedipine | [facility] [place] | | | 60 MG Extended Release Oral | | | | Tablet | | + + + + | 2022-02-28 00:00 | Osmotic 24 HR nifedipine | [facility] [place] | | | 60 MG Extended Release Oral | | | | Tablet | | + + + + | 2022-03-14 00:00 | Osmotic 24 HR nifedipine | [facility] [place] | | | 60 MG Extended Release Oral | | | | Tablet | | + + + + | 2022-03-17 00:00 | Osmotic 24 HR nifedipine | [facility] [place] | | | 60 MG Extended Release Oral | | | | Tablet | | + + + + | 2022-03-25 00:00 | Osmotic 24 HR nifedipine | [facility] [place] | | | 60 MG Extended Release Oral | | | | Tablet | | + + + + | 2022-03-26 00:00 | Osmotic 24 HR nifedipine | [facility] [place] | | | 60 MG Extended Release Oral | | | | Tablet | | + + + + | 2022-04-04 00:00 | Osmotic 24 HR nifedipine | [facility] [place] | | | 60 MG Extended Release Oral | | | | Tablet | | + + + + | 2022-04-06 00:00 | Osmotic 24 HR nifedipine | [facility] [place] | | | 60 MG Extended Release Oral | | | | Tablet | | + + + + | 2022-04-08 00:00 | Osmotic 24 HR nifedipine | [facility] [place] | | | 60 MG Extended Release Oral | | | | Tablet | | + + + + | 2022-04-13 00:00 | Osmotic 24 HR nifedipine | [facility] [place] | | | 60 MG Extended Release Oral | | | | Tablet | | + + + + | 2022-04-19 00:00 | Osmotic 24 HR nifedipine | [facility] [place] | | | 60 MG Extended Release Oral | | | | Tablet | | + + + + | 2016-06-17 00:00 | BENZONATATE | [facility] [place] | + + + + | 2016-06-17 00:00 | BENZONATATE | [facility] [place] | + + + + | 2016-06-17 00:00 | BENZONATATE | [facility] [place] | + + + + | 2016-06-17 00:00 | BENZONATATE | [facility] [place] | + + + + | 2016-06-17 00:00 | BENZONATATE | [facility] [place] | + + + + | 2016-06-17 00:00 | BENZONATATE | [facility] [place] | + + + + | 2016-06-17 00:00 | BENZONATATE | [facility] | + + + + | 2016-06-17 00:00 | BENZONATATE | [facility] [place] | + + + + | 2016-06-17 00:00 | BENZONATATE | [facility] [place] | + + + + | 2016-06-17 00:00 | benzonatate 100 MG Oral | [facility] [place] | | | Capsule [Mei Perldeny] | | + + + + | 2019-09-24 00:00 | CEPHALEXIN | [facility] [place] | + + + + | 2019-09-24 00:00 | CEPHALEXIN | [facility] [place] | + + + + | 2019-09-24 00:00 | CEPHALEXIN | [facility] [place] | + + + + | 2019-09-24 00:00 | CEPHALEXIN | [facility] [place] | + + + + 2019-09-24 00:00 | CEPHALEXIN | [facility] [place] | + + + + | 2019-09-24 00:00 | CEPHALEXIN | [facility] [place] | + + + + | 2019-09-24 00:00 | CEPHALEXIN | [facility] [place] | + + + + | 2019-09-24 00:00 | CEPHALEXIN | [facility] [place] | + + + + | 2019-09-24 00:00 | CEPHALEXIN | [facility] [place] | + + + + 2020-05-24 00:00 | CEPHALEXIN | [facility] [place] | + + + + 2020-05-24 00:00 | CEPHALEXIN | [facility] [place] | + + + + | 2020-05-24 00:00 | CEPHALEXIN | [facility] [place] | + + + + | 2020-05-24 00:00 | CEPHALEXIN | [facility] [place] | + + + + | 2020-05-24 00:00 | CEPHALEXIN | [facility] [place] | + + + + 2020-05-24 00:00 | CEPHALEXIN | [facility] [place] | + + + + 2020-05-24 00:00 | CEPHALEXIN | [facility] [place] | + + + + | 2020-05-24 00:00 | CEPHALEXIN | [facility] [place] | + + + + | 2020-05-24 00:00 | CEPHALEXIN | [facility] [place] | + + + + | 2019-09-24 00:00 | cephalexin 500 MG Oral | [facility] [place] | | | Capsule [Keflex] | | + + + + | 2020-05-24 00:00 | cephalexin 500 MG Oral | [facility] [place] | | | Capsule [Keflex] | | + + + + | 2020-11-01 00:00 | AZITHROMYCIN | [facility] [place] | + + + + | 2020-11-01 00:00 | AZITHROMYCIN | [facility] [place] | + + + + | 2020-11-01 00:00 | AZITHROMYCIN | [facility] [place] | + + + + | 2020-11-01 00:00 | AZITHROMYCIN | [facility] [place] | + + + + | 2020-11-01 00:00 | AZITHROMYCIN | [facility] [place] | + + + + | 2020-11-01 00:00 | AZITHROMYCIN | [facility] [place] | + + + + | 2020-11-01 00:00 | AZITHROMYCIN | [facility] [place] | + + + + | 2020-11-01 00:00 | AZITHROMYCIN | [facility] [place] | + + + + | 2020-11-01 00:00 | AZITHROMYCIN | [facility] [place] | + + + + | 2020-11-01 00:00 | azithromycin 250 MG Oral | [facility] [place] | | | Tablet [Zithromax] | | + + + + | 2022-01-03 00:00 | 3 ML insulin glargine-yfgn | [facility] [place] | | | 100 UNT/ML Pen Injector | | + + + + | 2022-01-22 00:00 | 3 ML insulin glargine-yfgn | [facility] [place] | | | 100 UNT/ML Pen Injector | | + + + + | 2022-01-24 00:00 | 3 ML insulin glargine-yfgn | [facility] [place] | | | 100 UNT/ML Pen Injector | | + + + + | 2022-02-01 00:00 | 3 ML insulin glargine-yfgn | [facility] [place] | | | 100 UNT/ML Pen Injector | | + + + + | 2022-02-28 00:00 | 3 ML insulin glargine-yfgn | [facility] [place] | | | 100 UNT/ML Pen Injector | | + + + + | 2022-03-14 00:00 | 3 ML insulin glargine-yfgn | [facility] [place] | | | 100 UNT/ML Pen Injector | | + + + + | 2022-03-17 00:00 | 3 ML insulin glargine-yfgn | [facility] [place] | | | 100 UNT/ML Pen Injector | | + + + + | 2022-03-25 00:00 | 3 ML insulin glargine-yfgn | [facility] [place] | | | 100 UNT/ML Pen Injector | | + + + + | 2022-03-26 00:00 | 3 ML insulin glargine-yfgn | [facility] [place] | | | 100 UNT/ML Pen Injector | | + + + + | 2022-04-04 00:00 | 3 ML insulin glargine-yfgn | [facility] [place] | | | 100 UNT/ML Pen Injector | | + + + + | 2022-04-06 00:00 | 3 ML insulin glargine-yfgn | [facility] [place] | | | 100 UNT/ML Pen Injector | | + + + + | 2022-04-08 00:00 | 3 ML insulin glargine-yfgn | [facility] [place] | | | 100 UNT/ML Pen Injector | | + + + + | 2022-04-13 00:00 | 3 ML insulin glargine-yfgn | [facility] [place] | | | 100 UNT/ML Pen Injector | | + + + + | 2022-04-19 00:00 | 3 ML insulin glargine-yfgn | [facility] [place] | | | 100 UNT/ML Pen Injector | | + + + + | 2022-01-05 00:00 | Insulin Glargine-Yfgn | [facility] [place] | + + + + | 2022-01-26 00:00 | Insulin Glargine-Yfgn | [facility] [place] | + + + + | 2022-01-29 00:00 | Insulin Glargine-Yfgn | [facility] [place] | + + + + | 2022-02-08 00:00 | Insulin Glargine-Yfgn | [facility] [place] | + + + + | 2022-02-28 00:00 | Insulin Glargine-Yfgn | [facility] [place] | + + + + | 2022-02-28 00:00 | Insulin Glargine-Yfgn | [facility] [place] | + + + + | 2022-03-14 00:00 | Insulin Glargine-Yfgn | [facility] [place] | + + + + | 2022-03-17 00:00 | Insulin Glargine-Yfgn | [facility] [place] | + + + + | 2022-03-25 00:00 | Insulin Glargine-Yfgn | [facility] [place] | + + + + | 2022-03-26 00:00 | Insulin Glargine-Yfgn | [facility] [place] | + + + + | 2022-04-04 00:00 | Insulin Glargine-Yfgn | [facility] [place] | + + + + | 2022-04-06 00:00 | Insulin Glargine-Yfgn | [facility] [place] | + + + + | 2022-04-08 00:00 | Insulin Glargine-Yfgn | [facility] [place] | + + + + | 2022-04-13 00:00 | Insulin Glargine-Yfgn | [facility] [place] | + + + + | 2022-04-19 00:00 | Insulin Glargine-Yfgn | [facility] [place] | + + + + | 2019-04-05 00:00 | INSULIN GLARGINE | [facility] [place] | + + + + | 2019-04-05 00:00 | INSULIN GLARGINE | [facility] [place] | + + + + | 2019-04-05 00:00 | INSULIN GLARGINE | [facility] [place] | + + + + | 2019-04-05 00:00 | INSULIN GLARGINE | [facility] [place] | + + + + | 2019-04-05 00:00 | INSULIN GLARGINE | [facility] [place] | + + + + | 2019-04-05 00:00 | INSULIN GLARGINE | [facility] [place] | + + + + | 2019-04-05 00:00 | INSULIN GLARGINE | [facility] [place] | + + + + | 2019-04-05 00:00 | INSULIN GLARGINE | [facility] [place] | + + + + | 2019-04-05 00:00 | INSULIN GLARGINE | [facility] [place] | + + + + | 2019-04-05 00:00 | insulin glargine 100 | [facility] [place] | | | UNT/ML Injectable Solution | | | | [Lantus] | | + + + + | 2022-01-05 00:00 | GABAPENTIN | [facility] [place] | + + + + | 2022-01-26 00:00 | GABAPENTIN | [facility] [place] | + + + + | 2022-01-29 00:00 | GABAPENTIN | [facility] [place] | + + + + | 2022-02-08 00:00 | GABAPENTIN | [facility] [place] | + + + + | 2022-02-28 00:00 | GABAPENTIN | [facility] [place] | + + + + | 2022-02-28 00:00 | GABAPENTIN | [facility] [place] | + + + + | 2022-03-14 00:00 | GABAPENTIN | [facility] [place] | + + + + | 2022-03-17 00:00 | GABAPENTIN | [facility] [place] | + + + + | 2022-03-25 00:00 | GABAPENTIN | [facility] [place] | + + + + | 2022-03-26 00:00 | GABAPENTIN | [facility] [place] | + + + + | 2022-04-04 00:00 | GABAPENTIN | [facility] [place] | + + + + | 2022-04-06 00:00 | GABAPENTIN | [facility] [place] | + + + + | 2022-04-08 00:00 | GABAPENTIN | [facility] [place] | + + + + | 2022-04-13 00:00 | GABAPENTIN | [facility] [place] | + + + + | 2022-04-19 00:00 | GABAPENTIN | [facility] [place] | + + + + | 2022-01-03 00:00 | gabapentin 300 MG Oral | [facility] [place] | | | Capsule | | + + + + | 2022-01-22 00:00 | gabapentin 300 MG Oral | [facility] [place] | | | Capsule | | + + + + | 2022-01-24 00:00 | gabapentin 300 MG Oral | [facility] [place] | | | Capsule | | + + + + | 2022-02-01 00:00 | gabapentin 300 MG Oral | [facility] [place] | | | Capsule | | + + + + | 2022-02-28 00:00 | gabapentin 300 MG Oral | [facility] [place] | | | Capsule | | + + + + | 2022-03-14 00:00 | gabapentin 300 MG Oral | [facility] [place] | | | Capsule | | + + + + | 2022-03-17 00:00 | gabapentin 300 MG Oral | [facility] [place] | | | Capsule | | + + + + | 2022-03-25 00:00 | gabapentin 300 MG Oral | [facility] [place] | | | Capsule | | + + + + | 2022-03-26 00:00 | gabapentin 300 MG Oral | [facility] [place] | | | Capsule | | + + + + | 2022-04-04 00:00 | gabapentin 300 MG Oral | [facility] [place] | | | Capsule | | + + + + | 2022-04-06 00:00 | gabapentin 300 MG Oral | [facility] [place] | | | Capsule | | + + + + | 2022-04-08 00:00 | gabapentin 300 MG Oral | [facility] [place] | | | Capsule | | + + + + | 2022-04-13 00:00 | gabapentin 300 MG Oral | [facility] | | | Capsule | | + + + + | 2022-04-19 00:00 | gabapentin 300 MG Oral | [facility] | | | Capsule | | + + + + | 2022-01-05 00:00 | NPH, HUMAN INSULIN | [facility] | | | ISOPHANE | | + + + + | 2022-01-26 00:00 | NPH, HUMAN INSULIN | [facility] | | | ISOPHANE | | + + + + | 2022-01-29 00:00 | NPH, HUMAN INSULIN | [facility] | | | ISOPHANE | | + + + + | 2022-02-08 00:00 | NPH, HUMAN INSULIN | [facility] | | | ISOPHANE | | + + + + | 2022-02-28 00:00 | NPH, HUMAN INSULIN | [facility] | | | ISOPHANE | | + + + + | 2022-02-28 00:00 | NPH, HUMAN INSULIN | [facility] | | | ISOPHANE | | + + + + | 2022-03-14 00:00 | NPH, HUMAN INSULIN | [facility] | | | ISOPHANE | | + + + + | 2022-03-17 00:00 | NPH, HUMAN INSULIN | [facility] | | | ISOPHANE | | + + + + | 2022-03-25 00:00 | NPH, HUMAN INSULIN | [facility] | | | ISOPHANE | | + + + + | 2022-03-26 00:00 | NPH, HUMAN INSULIN | [facility] | | | ISOPHANE | | + + + + | 2022-04-04 00:00 | NPH, HUMAN INSULIN | [facility] | | | ISOPHANE | | + + + + | 2022-04-06 00:00 | NPH, HUMAN INSULIN | [facility] | | | ISOPHANE | | + + + + | 2022-04-08 00:00 | NPH, HUMAN INSULIN | [facility] | | | ISOPHANE | | + + + + | 2022-04-13 00:00 | NPH, HUMAN INSULIN | [facility] | | | ISOPHANE | | + + + + | 2022-04-19 00:00 | NPH, HUMAN INSULIN | [facility] | | | ISOPHANE | | + + + + | 2022-01-03 00:00 | insulin isophane, human | [facility] | | | 100 UNT/ML Injectable | | | | Suspension [Hu | | + + + + | 2022-01-22 00:00 | insulin isophane, human | [facility] | | | 100 UNT/ML Injectable | | | | Suspension [Hu | | + + + + | 2022-01-24 00:00 | insulin isophane, human | [facility] | | | 100 UNT/ML Injectable | | | | Suspension [Hu | | + + + + | 2022-02-01 00:00 | insulin isophane, human | [facility] | | | 100 UNT/ML Injectable | | | | Suspension [Hu | | + + + + | 2022-02-28 00:00 | insulin isophane, human | [facility] | | | 100 UNT/ML Injectable | | | | Suspension [Hu | | + + + + | 2022-03-14 00:00 | insulin isophane, human | [facility] | | | 100 UNT/ML Injectable | | | | Suspension [Hu | | + + + + | 2022-03-17 00:00 | insulin isophane, human | [facility] | | | 100 UNT/ML Injectable | | | | Suspension [Hu | | + + + + | 2022-03-25 00:00 | insulin isophane, human | [facility] | | | 100 UNT/ML Injectable | | | | Suspension [Hu | | + + + + | 2022-03-26 00:00 | insulin isophane, human | [facility] | | | 100 UNT/ML Injectable | | | | Suspension [Hu | | + + + + | 2022-04-04 00:00 | insulin isophane, human | [facility] | | | 100 UNT/ML Injectable | | | | Suspension [Hu | | + + + + | 2022-04-06 00:00 | insulin isophane, human | [facility] | | | 100 UNT/ML Injectable | | | | Suspension [Hu | | + + + + | 2022-04-08 00:00 | insulin isophane, human | [facility] | | | 100 UNT/ML Injectable | | | | Suspension [Hu | | + + + + | 2022-04-13 00:00 | insulin isophane, human | [facility] | | | 100 UNT/ML Injectable | | | | Suspension [Hu | | + + + + | 2022-04-19 00:00 | insulin isophane, human | [facility] | | | 100 UNT/ML Injectable | | | | Suspension [Hu | | + + + + | 2019-12-16 00:00 | LISINOPRIL | [facility] | + + + + | 2019-12-16 00:00 | LISINOPRIL | [facility] | + + + + | 2019-12-16 00:00 | LISINOPRIL | [facility] | + + + + | 2019-12-16 00:00 | LISINOPRIL | [facility] | + + + + | 2019-12-16 00:00 | LISINOPRIL | [facility] | + + + + | 2019-12-16 00:00 | LISINOPRIL | [facility] | + + + + | 2019-12-16 00:00 | LISINOPRIL | [facility] | + + + + | 2019-12-16 00:00 | LISINOPRIL | [facility] | + + + + | 2019-12-16 00:00 | LISINOPRIL | [facility] | + + + + | 2019-12-16 00:00 | lisinopril 5 MG Oral | [facility] | | | Tablet | | + + + + | 2020-11-01 00:00 | predniSONE | [facility] | + + + + | 2020-11-01 00:00 | predniSONE | [facility] | + + + + | 2020-11-01 00:00 | predniSONE | [facility] | + + + + | 2020-11-01 00:00 | predniSONE | [facility] | + + + + | 2020-11-01 00:00 | predniSONE | [facility] | + + + + | 2020-11-01 00:00 | predniSONE | [facility] | + + + + | 2020-11-01 00:00 | predniSONE | [facility] | + + + + | 2020-11-01 00:00 | predniSONE | [facility] | + + + + | 2020-11-01 00:00 | predniSONE | [facility] | + + + + | 2020-11-01 00:00 | prednisone 20 MG Oral | [facility] | | | Tablet | | + + + + | 2022-01-05 00:00 | LISINOPRIL | [facility] | + + + + | 2022-01-26 00:00 | LISINOPRIL | [facility] | + + + + | 2022-01-29 00:00 | LISINOPRIL | [facility] | + + + + | 2022-02-08 00:00 | LISINOPRIL | [facility] | + + + + | 2022-02-28 00:00 | LISINOPRIL | [facility] | + + + + | 2022-02-28 00:00 | LISINOPRIL | [facility] | + + + + | 2022-03-14 00:00 | LISINOPRIL | [facility] | + + + + | 2022-03-17 00:00 | LISINOPRIL | [facility] | + + + + | 2022-03-25 00:00 | LISINOPRIL | [facility] | + + + + | 2022-03-26 00:00 | LISINOPRIL | [facility] | + + + + | 2022-04-04 00:00 | LISINOPRIL | [facility] | + + + + | 2022-04-06 00:00 | LISINOPRIL | [facility] | + + + + | 2022-04-08 00:00 | LISINOPRIL | [facility] | + + + + | 2022-04-13 00:00 | LISINOPRIL | [facility] | + + + + | 2022-04-19 00:00 | LISINOPRIL | [facility] | + + + + | 2022-01-03 00:00 | lisinopril 10 MG Oral | [facility] | | | Tablet | | + + + + | 2022-01-22 00:00 | lisinopril 10 MG Oral | [facility] | | | Tablet | | + + + + | 2022-01-24 00:00 | lisinopril 10 MG Oral | [facility] | | | Tablet | | + + + + | 2022-02-01 00:00 | lisinopril 10 MG Oral | [facility] | | | Tablet | | + + + + | 2022-02-28 00:00 | lisinopril 10 MG Oral | [facility] | | | Tablet | | + + + + | 2022-03-14 00:00 | lisinopril 10 MG Oral | [facility] | | | Tablet | | + + + + | 2022-03-17 00:00 | lisinopril 10 MG Oral | [facility] | | | Tablet | | + + + + | 2022-03-25 00:00 | lisinopril 10 MG Oral | [facility] | | | Tablet | | + + + + | 2022-03-26 00:00 | lisinopril 10 MG Oral | [facility] | | | Tablet | | + + + + | 2022-04-04 00:00 | lisinopril 10 MG Oral | [facility] | | | Tablet | | + + + + | 2022-04-06 00:00 | lisinopril 10 MG Oral | [facility] | | | Tablet | | + + + + | 2022-04-08 00:00 | lisinopril 10 MG Oral | [facility] | | | Tablet | | + + + + | 2022-04-13 00:00 | lisinopril 10 MG Oral | [facility] | | | Tablet | | + + + + | 2022-04-19 00:00 | lisinopril 10 MG Oral | [facility] | | | Tablet | | + + + + | 2022-01-05 00:00 | FENOFIBRATE | [facility] | + + + + | 2022-01-26 00:00 | FENOFIBRATE | [facility] | + + + + | 2022-01-29 00:00 | FENOFIBRATE | [facility] | + + + + | 2022-02-08 00:00 | FENOFIBRATE | [facility] | + + + + | 2022-02-28 00:00 | FENOFIBRATE | [facility] | + + + + | 2022-02-28 00:00 | FENOFIBRATE | [facility] | + + + + | 2022-03-14 00:00 | FENOFIBRATE | [facility] | + + + + | 2022-03-17 00:00 | FENOFIBRATE | [facility] | + + + + | 2022-03-25 00:00 | FENOFIBRATE | [facility] | + + + + | 2022-03-26 00:00 | FENOFIBRATE | [facility] | + + + + | 2022-04-04 00:00 | FENOFIBRATE | [facility] | + + + + | 2022-04-06 00:00 | FENOFIBRATE | [facility] | + + + + | 2022-04-08 00:00 | FENOFIBRATE | [facility] | + + + + | 2022-04-13 00:00 | FENOFIBRATE | [facility] | + + + + | 2022-04-19 00:00 | FENOFIBRATE | [facility] | + + + + | 2022-01-03 00:00 | fenofibrate 54 MG Oral | [facility] | | | Tablet | | + + + + | 2022-01-22 00:00 | fenofibrate 54 MG Oral | [facility] | | | Tablet | | + + + + | 2022-01-24 00:00 | fenofibrate 54 MG Oral | [facility] | | | Tablet | | + + + + | 2022-02-01 00:00 | fenofibrate 54 MG Oral | [facility] | | | Tablet | | + + + + | 2022-02-28 00:00 | fenofibrate 54 MG Oral | [facility] | | | Tablet | | + + + + | 2022-03-14 00:00 | fenofibrate 54 MG Oral | [facility] | | | Tablet | | + + + + | 2022-03-17 00:00 | fenofibrate 54 MG Oral | [facility] | | | Tablet | | + + + + | 2022-03-25 00:00 | fenofibrate 54 MG Oral | [facility] | | | Tablet | | + + + + | 2022-03-26 00:00 | fenofibrate 54 MG Oral | [facility] | | | Tablet | | + + + + | 2022-04-04 00:00 | fenofibrate 54 MG Oral | [facility] | | | Tablet | | + + + + | 2022-04-06 00:00 | fenofibrate 54 MG Oral | [facility] | | | Tablet | | + + + + | 2022-04-08 00:00 | fenofibrate 54 MG Oral | [facility] | | | Tablet | | + + + + | 2022-04-13 00:00 | fenofibrate 54 MG Oral | [facility] | | | Tablet | | + + + + | 2022-04-19 00:00 | fenofibrate 54 MG Oral | [facility] | | | Tablet | | + + + + | 2022-01-05 00:00 | INSULIN ASPART | [facility] | + + + + | 2022-01-26 00:00 | INSULIN ASPART | [facility] | + + + + | 2022-01-29 00:00 | INSULIN ASPART | [facility] | + + + + | 2022-02-08 00:00 | INSULIN ASPART | [facility] | + + + + | 2022-02-28 00:00 | INSULIN ASPART | [facility] | + + + + | 2022-02-28 00:00 | INSULIN ASPART | [facility] | + + + + | 2022-03-14 00:00 | INSULIN ASPART | [facility] | + + + + | 2022-03-17 00:00 | INSULIN ASPART | [facility] | + + + + | 2022-03-25 00:00 | INSULIN ASPART | [facility] | + + + + | 2022-03-26 00:00 | INSULIN ASPART | [facility] | + + + + | 2022-04-04 00:00 | INSULIN ASPART | [facility] | + + + + | 2022-04-06 00:00 | INSULIN ASPART | [facility] | + + + + | 2022-04-08 00:00 | INSULIN ASPART | [facility] | + + + + | 2022-04-13 00:00 | INSULIN ASPART | [facility] | + + + + | 2022-04-19 00:00 | INSULIN ASPART | [facility] | + + + + | 2022-01-03 00:00 | insulin aspart, human 100 | [facility] | | | UNT/ML Injectable Solution | | | | [NovoLo | | + + + + | 2022-01-22 00:00 | insulin aspart, human 100 | [facility] | | | UNT/ML Injectable Solution | | | | [NovoLo | | + + + + | 2022-01-24 00:00 | insulin aspart, human 100 | [facility] | | | UNT/ML Injectable Solution | | | | [NovoLo | | + + + + | 2022-02-01 00:00 | insulin aspart, human 100 | [facility] | | | UNT/ML Injectable Solution | | | | [NovoLo | | + + + + | 2022-02-28 00:00 | insulin aspart, human 100 | [facility] | | | UNT/ML Injectable Solution | | | | [NovoLo | | + + + + | 2022-03-14 00:00 | insulin aspart, human 100 | [facility] | | | UNT/ML Injectable Solution | | | | [NovoLo | | + + + + | 2022-03-17 00:00 | insulin aspart, human 100 | [facility] | | | UNT/ML Injectable Solution | | | | [NovoLo | | + + + + | 2022-03-25 00:00 | insulin aspart, human 100 | [facility] | | | UNT/ML Injectable Solution | | | | [NovoLo | | + + + + | 2022-03-26 00:00 | insulin aspart, human 100 | [facility] | | | UNT/ML Injectable Solution | | | | [NovoLo | | + + + + | 2022-04-04 00:00 | insulin aspart, human 100 | [facility] | | | UNT/ML Injectable Solution | | | | [NovoLo | | + + + + | 2022-04-06 00:00 | insulin aspart, human 100 | [facility] | | | UNT/ML Injectable Solution | | | | [NovoLo | | + + + + | 2022-04-08 00:00 | insulin aspart, human 100 | [facility] | | | UNT/ML Injectable Solution | | | | [NovoLo | | + + + + | 2022-04-13 00:00 | insulin aspart, human 100 | [facility] | | | UNT/ML Injectable Solution | | | | [NovoLo | | + + + + | 2022-04-19 00:00 | insulin aspart, human 100 | [facility] | | | UNT/ML Injectable Solution | | | | [NovoLo | | + + + + | 2022-01-22 00:00 | nitrofurantoin, | [facility] | | | macrocrystals 25 MG / | | | | nitrofurantoin, monohy | | + + + + | 2022-01-05 00:00 | ATORVASTATIN CALCIUM | [facility] | + + + + | 2022-01-26 00:00 | ATORVASTATIN CALCIUM | [facility] | + + + + | 2022-01-29 00:00 | ATORVASTATIN CALCIUM | [facility] | + + + + | 2022-02-08 00:00 | ATORVASTATIN CALCIUM | [facility] | + + + + | 2022-02-28 00:00 | ATORVASTATIN CALCIUM | [facility] | + + + + | 2022-02-28 00:00 | ATORVASTATIN CALCIUM | [facility] | + + + + | 2022-03-14 00:00 | ATORVASTATIN CALCIUM | [facility] | + + + + | 2022-03-17 00:00 | ATORVASTATIN CALCIUM | [facility] | + + + + | 2022-03-25 00:00 | ATORVASTATIN CALCIUM | [facility] | + + + + | 2022-03-26 00:00 | ATORVASTATIN CALCIUM | [facility] | + + + + | 2022-04-04 00:00 | ATORVASTATIN CALCIUM | [facility] | + + + + | 2022-04-06 00:00 | ATORVASTATIN CALCIUM | [facility] | + + + + | 2022-04-08 00:00 | ATORVASTATIN CALCIUM | [facility] | + + + + | 2022-04-13 00:00 | ATORVASTATIN CALCIUM | [facility] | + + + + | 2022-04-19 00:00 | ATORVASTATIN CALCIUM | [facility] | + + + + | 2022-01-03 00:00 | atorvastatin 40 MG Oral | [facility] | | | Tablet | | + + + + | 2022-01-22 00:00 | atorvastatin 40 MG Oral | [facility] | | | Tablet | | + + + + | 2022-01-24 00:00 | atorvastatin 40 MG Oral | [facility] | | | Tablet | | + + + + | 2022-02-01 00:00 | atorvastatin 40 MG Oral | [facility] | | | Tablet | | + + + + | 2022-02-28 00:00 | atorvastatin 40 MG Oral | [facility] | | | Tablet | | + + + + | 2022-03-14 00:00 | atorvastatin 40 MG Oral | [facility] | | | Tablet | | + + + + | 2022-03-17 00:00 | atorvastatin 40 MG Oral | [facility] | | | Tablet | | + + + + | 2022-03-25 00:00 | atorvastatin 40 MG Oral | [facility] | | | Tablet | | + + + + | 2022-03-26 00:00 | atorvastatin 40 MG Oral | [facility] | | | Tablet | | + + + + | 2022-04-04 00:00 | atorvastatin 40 MG Oral | [facility] | | | Tablet | | + + + + | 2022-04-06 00:00 | atorvastatin 40 MG Oral | [facility] | | | Tablet | | + + + + | 2022-04-08 00:00 | atorvastatin 40 MG Oral | [facility] | | | Tablet | | + + + + | 2022-04-13 00:00 | atorvastatin 40 MG Oral | [facility] | | | Tablet | | + + + + | 2022-04-19 00:00 | atorvastatin 40 MG Oral | [facility] | | | Tablet | | + + + + | 2022-01-05 00:00 | PYRIDOXINE HCL | [facility] | + + + + | 2022-01-26 00:00 | PYRIDOXINE HCL | [facility] | + + + + | 2022-01-29 00:00 | PYRIDOXINE HCL | [facility] | + + + + | 2022-02-08 00:00 | PYRIDOXINE HCL | [facility] | + + + + | 2022-02-28 00:00 | PYRIDOXINE HCL | [facility] | + + + + | 2022-02-28 00:00 | PYRIDOXINE HCL | [facility] | + + + + | 2022-03-14 00:00 | PYRIDOXINE HCL | [facility] | + + + + | 2022-03-17 00:00 | PYRIDOXINE HCL | [facility] | + + + + | 2022-03-25 00:00 | PYRIDOXINE HCL | [facility] | + + + + | 2022-03-26 00:00 | PYRIDOXINE HCL | [facility] | + + + + | 2022-04-04 00:00 | PYRIDOXINE HCL | [facility] | + + + + | 2022-04-06 00:00 | PYRIDOXINE HCL | [facility] | + + + + | 2022-04-08 00:00 | PYRIDOXINE HCL | [facility] | + + + + | 2022-04-13 00:00 | PYRIDOXINE HCL | [facility] | + + + + | 2022-04-19 00:00 | PYRIDOXINE HCL | [facility] | + + + + | 2022-01-03 00:00 | vitamin B6 50 MG Oral | [facility] | | | Tablet | | + + + + | 2022-01-22 00:00 | vitamin B6 50 MG Oral | [facility] | | | Tablet | | + + + + | 2022-01-24 00:00 | vitamin B6 50 MG Oral | [facility] | | | Tablet | | + + + + | 2022-02-01 00:00 | vitamin B6 50 MG Oral | [facility] | | | Tablet | | + + + + | 2022-02-28 00:00 | vitamin B6 50 MG Oral | [facility] | | | Tablet | | + + + + | 2022-03-14 00:00 | vitamin B6 50 MG Oral | [facility] | | | Tablet | | + + + + | 2022-03-17 00:00 | vitamin B6 50 MG Oral | [facility] | | | Tablet | | + + + + | 2022-03-25 00:00 | vitamin B6 50 MG Oral | [facility] | | | Tablet | | + + + + | 2022-03-26 00:00 | vitamin B6 50 MG Oral | [facility] | | | Tablet | | + + + + | 2022-04-04 00:00 | vitamin B6 50 MG Oral | [facility] | | | Tablet | | + + + + | 2022-04-06 00:00 | vitamin B6 50 MG Oral | [facility] | | | Tablet | | + + + + | 2022-04-08 00:00 | vitamin B6 50 MG Oral | [facility] | | | Tablet | | + + + + | 2022-04-13 00:00 | vitamin B6 50 MG Oral | [facility] | | | Tablet | | + + + + | 2022-04-19 00:00 | vitamin B6 50 MG Oral | [facility] | | | Tablet | | + + + + | 2017-10-04 00:00 | TRAMADOL HCL | [facility] | + + + + | 2017-10-04 00:00 | TRAMADOL HCL | [facility] | + + + + | 2017-10-04 00:00 | TRAMADOL HCL | [facility] | + + + + | 2017-10-04 00:00 | TRAMADOL HCL | [facility] | + + + + | 2017-10-04 00:00 | TRAMADOL HCL | [facility] | + + + + | 2017-10-04 00:00 | TRAMADOL HCL | [facility] | + + + + | 2017-10-04 00:00 | TRAMADOL HCL | [facility] | + + + + | 2017-10-04 00:00 | TRAMADOL HCL | [facility] | + + + + | 2017-10-04 00:00 | TRAMADOL HCL | [facility] | + + + + | 2018-10-18 00:00 | TRAMADOL HCL | [facility] | + + + + | 2018-10-18 00:00 | TRAMADOL HCL | [facility] | + + + + | 2018-10-18 00:00 | TRAMADOL HCL | [facility] | + + + + | 2018-10-18 00:00 | TRAMADOL HCL | [facility] | + + + + | 2018-10-18 00:00 | TRAMADOL HCL | [facility] | + + + + | 2018-10-18 00:00 | TRAMADOL HCL | [facility] | + + + + | 2018-10-18 00:00 | TRAMADOL HCL | [facility] | + + + + | 2018-10-18 00:00 | TRAMADOL HCL | [facility] | + + + + | 2018-10-18 00:00 | TRAMADOL HCL | [facility] | + + + + | 2017-10-04 00:00 | tramadol hydrochloride 50 | [facility] | | | MG Oral Tablet | | + + + + | 2018-10-18 00:00 | tramadol hydrochloride 50 | [facility] | | | MG Oral Tablet | | + + + + | 2022-01-03 00:00 | 3 ML insulin glargine 100 | [facility] [place] | | | UNT/ML Pen Injector | | | | [Lantus] | | + + + + | 2022-01-22 00:00 | 3 ML insulin glargine 100 | [facility] [place] | | | UNT/ML Pen Injector | | | | [Lantus] | | + + + + | 2022-01-24 00:00 | 3 ML insulin glargine 100 | [facility] [place] | | | UNT/ML Pen Injector | | | | [Lantus] | | + + + + | 2022-02-01 00:00 | 3 ML insulin glargine 100 | [facility] [place] | | | UNT/ML Pen Injector | | | | [Lantus] | | + + + + | 2022-02-28 00:00 | 3 ML insulin glargine 100 | [facility] [place] | | | UNT/ML Pen Injector | | | | [Lantus] | | + + + + | 2022-03-14 00:00 | 3 ML insulin glargine 100 | [facility] [place] | | | UNT/ML Pen Injector | | | | [Lantus] | | + + + + | 2022-03-17 00:00 | 3 ML insulin glargine 100 | [facility] [place] | | | UNT/ML Pen Injector | | | | [Lantus] | | + + + + | 2022-03-25 00:00 | 3 ML insulin glargine 100 | [facility] [place] | | | UNT/ML Pen Injector | | | | [Lantus] | | + + + + | 2022-03-26 00:00 | 3 ML insulin glargine 100 | [facility] [place] | | | UNT/ML Pen Injector | | | | [Lantus] | | + + + + | 2022-04-04 00:00 | 3 ML insulin glargine 100 | [facility] | | | UNT/ML Pen Injector | | | | [Lantus] | | + + + + | 2022-04-06 00:00 | 3 ML insulin glargine 100 | [facility] | | | UNT/ML Pen Injector | | | | [Lantus] | | + + + + | 2022-04-08 00:00 | 3 ML insulin glargine 100 | [facility] | | | UNT/ML Pen Injector | | | | [Lantus] | | + + + + | 2022-04-13 00:00 | 3 ML insulin glargine 100 | [facility] | | | UNT/ML Pen Injector | | | | [Lantus] | | + + + + | 2022-04-19 00:00 | 3 ML insulin glargine 100 | [facility] | | | UNT/ML Pen Injector | | | | [Lantus] | | + + + + | 2022-01-05 00:00 | INSULIN | [facility] | | | KRISTOFER HERRON | | + + + + | 2022-01-26 00:00 | INSULIN | [facility] | | | GLARGINE,HUM.REC.ANLOG | | + + + + | 2022-01-29 00:00 | INSULIN | [facility] | | | GLARGINE,HUM.REC.ANLOG | | + + + + | 2022-02-08 00:00 | INSULIN | [facility] | | | GLARGINE,HUM.REC.ANLOG | | + + + + | 2022-02-28 00:00 | INSULIN | [facility] | | | GLARGINE,HUM.REC.ANLOG | | + + + + | 2022-02-28 00:00 | INSULIN | [facility] | | | GLARGINE,HUM.REC.ANLOG | | + + + + | 2022-03-14 00:00 | INSULIN | [facility] | | | GLAVAUGHNE,HUM.REC.ANLOG | | + + + + | 2022-03-17 00:00 | INSULIN | [facility] | | | GLAPRAVEENA,HUM.REC.ANLOG | | + + + + | 2022-03-25 00:00 | INSULIN | [facility] | | | GLAPRAVEENA,HUM.REC.ANLOG | | + + + + | 2022-03-26 00:00 | INSULIN | [facility] | | | GLARGINE,HUM.REC.ANLOG | | + + + + | 2022-04-04 00:00 | INSULIN | [facility] | | | [facility] | | + + + + | 2022-04-06 00:00 | INSULIN | [facility] | | | [facility]ENTERIvanaRECIvanaANLOG | | + + + + | 2022-04-08 00:00 | INSULIN | [facility] | | | HUM. GOPALRECIavnaANLOG | | + + + + | 2022-04-13 00:00 | INSULIN | [facility] | | | GOPALHUMIvanaRECIvanaANLOG | | + + + + | 2022-04-19 00:00 | INSULIN | [facility] | | | KRISTOFER HERRON | | + + + + | 2013-12-03 00:00 | | [facility] | | | SULFAMETHOXAZOLE/TRIMETHOPR | | | | IM DS | | + + + + | 2013-12-03 00:00 | | [facility] | | | SULFAMETHOXAZOLE/TRIMETHOPR | | | | IM DS | | + + + + | 2013-12-03 00:00 | | [facility] | | | SULFAMETHOXAZOLE/TRIMETHOPR | | | | IM DS | | + + + + | 2013-12-03 00:00 | | [facility] | | | SULFAMETHOXAZOLE/TRIMETHOPR | | | | IM DS | | + + + + | 2013-12-03 00:00 | | [facility] | | | SULFAMETHOXAZOLE/TRIMETHOPR | | | | IM DS | | + + + + | 2013-12-03 00:00 | | [facility] | | | SULFAMETHOXAZOLE/TRIMETHOPR | | | | IM DS | | + + + + | 2013-12-03 00:00 | | [facility] | | | SULFAMETHOXAZOLE/TRIMETHOPR | | | | IM DS | | + + + + | 2013-12-03 00:00 | | [facility] | | | SULFAMETHOXAZOLE/TRIMETHOPR | | | | IM DS | | + + + + | 2013-12-03 00:00 | | [facility] | | | SULFAMETHOXAZOLE/TRIMETHOPR | | | | IM DS | | + + + + | 2017-10-04 00:00 | | [facility] | | | SULFAMETHOXAZOLE/TRIMETHOPR | | | | IM DS | | + + + + | 2017-10-04 00:00 | | [facility] | | | SULFAMETHOXAZOLE/TRIMETHOPR | | | | IM DS | | + + + + | 2017-10-04 00:00 | | [facility] | | | SULFAMETHOXAZOLE/TRIMETHOPR | | | | IM DS | | + + + + | 2017-10-04:00 | | [facility] | | | SULFAMETHOXAZOLE/TRIMETHOPR | | | | IM DS | | + + + + | 2017-10-04 00:00 | | [facility] | | | SULFAMETHOXAZOLE/TRIMETHOPR | | | | IM DS | | + + + + | 2017-10-04 00:00 | | [facility] | | | SULFAMETHOXAZOLE/TRIMETHOPR | | | | IM DS | | + + + + | 2017-10-04 00:00 | | [facility] | | | SULFAMETHOXAZOLE/TRIMETHOPR | | | | IM DS | | + + + + | 2017-10-04 00:00 | | [facility] | | | SULFAMETHOXAZOLE/TRIMETHOPR | | | | IM DS | | + + + + | 2017-10-04 00:00 | | [facility] | | | SULFAMETHOXAZOLE/TRIMETHOPR | | | | IM DS | | + + + + | 2020-02-22 00:00 | | [facility] | | | SULFAMETHOXAZOLE/TRIMETHOPR | | | | IM DS | | + + + + | 2020-02-22 00:00 | | [facility] | | | SULFAMETHOXAZOLE/TRIMETHOPR | | | | IM DS | | + + + + | 2020-02-22 00:00 | | [facility] | | | SULFAMETHOXAZOLE/TRIMETHOPR | | | | IM DS | | + + + + | 2020-02-22 00:00 | | [facility] | | | SULFAMETHOXAZOLE/TRIMETHOPR | | | | IM DS | | + + + + | 2020-02-22 00:00 | | [facility] | | | SULFAMETHOXAZOLE/TRIMETHOPR | | | | IM DS | | + + + + | 2020-02-22 00:00 | | [facility] | | | SULFAMETHOXAZOLE/TRIMETHOPR | | | | IM DS | | + + + + | 2020-02-22 00:00 | | [facility] | | | SULFAMETHOXAZOLE/TRIMETHOPR | | | | IM DS | | + + + + | 2020-02-22 00:00 | | [facility] | | | SULFAMETHOXAZOLE/TRIMETHOPR | | | | IM DS | | + + + + | 2020-02-22 00:00 | | [facility] | | | SULFAMETHOXAZOLE/TRIMETHOPR | | | | IM DS | | + + + + | 2013-12-03 00:00 | sulfamethoxazole 800 MG / | [facility] | | | trimethoprim 160 MG Oral | | | | Tablet [B | | + + + + | 2017-10-04 00:00 | sulfamethoxazole 800 MG / | [facility] | | | trimethoprim 160 MG Oral | | | | Tablet [B | | + + + + | 2020-02-22 00:00 | sulfamethoxazole 800 MG / | [facility] | | | trimethoprim 160 MG Oral | | | | Tablet [B | | + + + + | 2022-01-05 00:00 | HYDROCODONE | [facility] | | | BIT/ACETAMINOPHEN | | + + + + | 2022-01-26 00:00 | HYDROCODONE | [facility] | | | BIT/ACETAMINOPHEN | | + + + + | 2022-01-29 00:00 | HYDROCODONE | [facility] | | | BIT/ACETAMINOPHEN | | + + + + | 2022-02-08 00:00 | HYDROCODONE | [facility] | | | BIT/ACETAMINOPHEN | | + + + + | 2022-02-28 00:00 | HYDROCODONE | [facility] | | | BIT/ACETAMINOPHEN | | + + + + | 2022-02-28 00:00 | HYDROCODONE | [facility] | | | BIT/ACETAMINOPHEN | | + + + + | 2022-03-14 00:00 | HYDROCODONE | [facility] | | | BIT/ACETAMINOPHEN | | + + + + | 2022-03-17 00:00 | HYDROCODONE | [facility] | | | BIT/ACETAMINOPHEN | | + + + + | 2022-03-25 00:00 | HYDROCODONE | [facility] | | | BIT/ACETAMINOPHEN | | + + + + | 2022-03-26 00:00 | [facility]OCODONE | [facility] | | | BIT/ACETAMINOPHEN | | + + + + | 2022-04-04 00:00 | HYDROCODONE | [facility] | | | BIT/ACETAMINOPHEN | | + + + + | 2022-04-06 00:00 | HYDROCODONE | [facility] | | | BIT/ACETAMINOPHEN | | + + + + | 2022-04-08 00:00 | HYDROCODONE | [facility] | | | BIT/ACETAMINOPHEN | | + + + + | 2022-04-13 00:00 | HYDROCODONE | [facility] | | | BIT/ACETAMINOPHEN | | + + + + | 2022-04-19 00:00 | HYDROCODONE | [facility] | | | BIT/ACETAMINOPHEN | | + + + + | 2022-01-03 00:00 | acetaminophen 325 MG / | [facility] | | | hydrocodone bitartrate 10 | | | | MG Oral Tab | | + + + + | 2022-01-22 00:00 | acetaminophen 325 MG / | [facility] | | | hydrocodone bitartrate 10 | | | | MG Oral Tab | | + + + + | 2022-01-24 00:00 | acetaminophen 325 MG / | [facility] | | | hydrocodone bitartrate 10 | | | | MG Oral Tab | | + + + + | 2022-02-01 00:00 | acetaminophen 325 MG / | [facility] | | | hydrocodone bitartrate 10 | | | | MG Oral Tab | | + + + + | 2022-02-28 00:00 | acetaminophen 325 MG / | [facility] | | | hydrocodone bitartrate 10 | | | | MG Oral Tab | | + + + + | 2022-03-14 00:00 | acetaminophen 325 MG / | [facility] | | | hydrocodone bitartrate 10 | | | | MG Oral Tab | | + + + + | 2022-03-17 00:00 | acetaminophen 325 MG / | [facility] | | | hydrocodone bitartrate 10 | | | | MG Oral Tab | | + + + + | 2022-03-25 00:00 | acetaminophen 325 MG / | [facility] | | | hydrocodone bitartrate 10 | | | | MG Oral Tab | | + + + + | 2022-03-26 00:00 | acetaminophen 325 MG / | [facility] | | | hydrocodone bitartrate 10 | | | | MG Oral Tab | | + + + + | 2022-04-04 00:00 | acetaminophen 325 MG / | [facility] | | | hydrocodone bitartrate 10 | | | | MG Oral Tab | | + + + + | 2022-04-06 00:00 | acetaminophen 325 MG / | [facility] | | | hydrocodone bitartrate 10 | | | | MG Oral Tab | | + + + + | 2022-04-08 00:00 | acetaminophen 325 MG / | [facility] | | | hydrocodone bitartrate 10 | | | | MG Oral Tab | | + + + + | 2022-04-13 00:00 | acetaminophen 325 MG / | [facility] | | | hydrocodone bitartrate 10 | | | | MG Oral Tab | | + + + + | 2022-04-19 00:00 | acetaminophen 325 MG / | [facility] | | | hydrocodone bitartrate 10 | | | | MG Oral Tab | | + + + + | 2021-11-02 00:00 | HYDROCODONE | [facility] | | | BIT/ACETAMINOPHEN | | + + + + | 2021-11-02 00:00 | HYDROCODONE | [facility] | | | BIT/ACETAMINOPHEN | | + + + + | 2021-11-02 00:00 | HYDROCODONE | [facility] | | | BIT/ACETAMINOPHEN | | + + + + | 2021-11-02 00:00 | acetaminophen 325 MG / | [facility] | | | hydrocodone bitartrate 5 MG | | | | Oral Tabl | | + + + + | 2013-12-03 00:00 | HYDROCODONE | [facility] | | | BIT/ACETAMINOPHEN | | + + + + | 2013-12-03 00:00 | HYDROCODONE | [facility] | | | BIT/ACETAMINOPHEN | | + + + + | 2013-12-03 00:00 | HYDROCODONE | [facility] | | | BIT/ACETAMINOPHEN | | + + + + | 2013-12-03 00:00 | HYDROCODONE | [facility] | | | BIT/ACETAMINOPHEN | | + + + + | 2013-12-03 00:00 | HYDROCODONE | [facility] | | | BIT/ACETAMINOPHEN | | + + + + | 2013-12-03 00:00 | HYDROCODONE | [facility] | | | BIT/ACETAMINOPHEN | | + + + + | 2013-12-03 00:00 | [facility]OCODONE | [facility] | | | BIT/ACETAMINOPHEN | | + + + + | 2013-12-03 00:00 | HYDROCODONE | [facility] | | | BIT/ACETAMINOPHEN | | + + + + | 2013-12-03 00:00 | HYDROCODONE | [facility] | | | BIT/ACETAMINOPHEN | | + + + + | 2017-11-05 00:00 | HYDROCODONE | [facility] | | | BIT/ACETAMINOPHEN | | + + + + | 2017-11-05 00:00 | HYDROCODONE | [facility] | | | BIT/ACETAMINOPHEN | | + + + + | 2017-11-05 00:00 | HYDROCODONE | [facility] | | | BIT/ACETAMINOPHEN | | + + + + | 2017-11-05 00:00 | HYDROCODONE | [facility] | | | BIT/ACETAMINOPHEN | | + + + + | 2017-11-05 00:00 | HYDROCODONE | [facility] | | | BIT/ACETAMINOPHEN | | + + + + | 2017-11-05 00:00 | HYDROCODONE | [facility] | | | BIT/ACETAMINOPHEN | | + + + + | 2017-11-05 00:00 | HYDROCODONE | [facility] | | | BIT/ACETAMINOPHEN | | + + + + | 2017-11-05 00:00 | HYDROCODONE | [facility] | | | BIT/ACETAMINOPHEN | | + + + + | 2017-11-05 00:00 | HYDROCODONE | [facility] | | | BIT/ACETAMINOPHEN | | + + + + | 2013-12-03 00:00 | acetaminophen 325 MG / | [facility] | | | hydrocodone bitartrate 5 MG | | | | Oral Tabl | | + + + + | 2017-11-05 00:00 | acetaminophen 325 MG / | [facility] | | | hydrocodone bitartrate 5 MG | | | | Oral Tabl | | + + + + | 2022-04-06 00:00 | HYDROCODONE | [facility] | | | BIT/ACETAMINOPHEN | | + + + + | 2022-04-06 00:00 | HYDROCODONE | [facility] | | | BIT/ACETAMINOPHEN | | + + + + | 2022-04-06 00:00 | HYDROCODONE | [facility] | | | BIT/ACETAMINOPHEN | | + + + + | 2022-04-06 00:00 | HYDROCODONE | [facility] | | | BIT/ACETAMINOPHEN | | + + + + | 2022-04-06 00:00 | acetaminophen 325 MG / | [facility] | | | hydrocodone bitartrate 7.5 | | | | MG Oral Ta | | + + + + | 2020-11-01 00:00 | ALBUTEROL SULFATE | [facility] | + + + + | 2020-11-01 00:00 | ALBUTEROL SULFATE | [facility] | + + + + | 2020-11-01 00:00 | ALBUTEROL SULFATE | [facility] | + + + + | 2020-11-01 00:00 | ALBUTEROL SULFATE | [facility] | + + + + | 2020-11-01 00:00 | ALBUTEROL SULFATE | [facility] | + + + + | 2020-11-01 00:00 | ALBUTEROL SULFATE | [facility] | + + + + | 2020-11-01 00:00 | ALBUTEROL SULFATE | [facility] | + + + + | 2020-11-01 00:00 | ALBUTEROL SULFATE | [facility] | + + + + | 2020-11-01 00:00 | ALBUTEROL SULFATE | [facility] | + + + + | 2022-01-05 00:00 | ALBUTEROL SULFATE | [facility] | + + + + | 2022-01-26 00:00 | ALBUTEROL SULFATE | [facility] | + + + + | 2022-01-29 00:00 | ALBUTEROL SULFATE | [facility] | + + + + | 2022-02-08 00:00 | ALBUTEROL SULFATE | [facility] | + + + + | 2022-02-28 00:00 | ALBUTEROL SULFATE | [facility] | + + + + | 2022-02-28 00:00 | ALBUTEROL SULFATE | [facility] | + + + + | 2022-03-14 00:00 | ALBUTEROL SULFATE | [facility] | + + + + | 2022-03-17 00:00 | ALBUTEROL SULFATE | [facility] | + + + + | 2022-03-25 00:00 | ALBUTEROL SULFATE | [facility] | + + + + | 2022-03-26 00:00 | ALBUTEROL SULFATE | [facility] | + + + + | 2022-04-04 00:00 | ALBUTEROL SULFATE | [facility] | + + + + | 2022-04-06 00:00 | ALBUTEROL SULFATE | [facility] | + + + + | 2022-04-08 00:00 | ALBUTEROL SULFATE | [facility] | + + + + | 2022-04-13 00:00 | ALBUTEROL SULFATE | [facility] | + + + + | 2022-04-19 00:00 | ALBUTEROL SULFATE | [facility] | + + + + | 2020-11-01 00:00 | [id number] 200 ACTUAT | [facility] | | | albuterol 0.09 MG/ACTUAT | | | | Metered Dose I | | + + + + | 2022-01-03 00:00 | [id number] 200 ACTUAT | [facility] | | | albuterol 0.09 MG/ACTUAT | | | | Metered Dose I | | + + + + | 2022-01-22 00:00 | [id number] 200 ACTUAT | [facility] | | | albuterol 0.09 MG/ACTUAT | | | | Metered Dose I | | + + + + | 2022-01-24 00:00 | [id number] 200 ACTUAT | [facility] | | | albuterol 0.09 MG/ACTUAT | | | | Metered Dose I | | + + + + | 2022-02-01 00:00 | [id number] 200 ACTUAT | [facility] | | | albuterol 0.09 MG/ACTUAT | | | | Metered Dose I | | + + + + | 2022-02-28 00:00 | [id number] 200 ACTUAT | [facility] | | | albuterol 0.09 MG/ACTUAT | | | | Metered Dose I | | + + + + | 2022-03-14 00:00 | [id number] 200 ACTUAT | [facility] | | | albuterol 0.09 MG/ACTUAT | | | | Metered Dose I | | + + + + | 2022-03-17 00:00 | [id number] 200 ACTUAT | [facility] | | | albuterol 0.09 MG/ACTUAT | | | | Metered Dose I | | + + + + | 2022-03-25 00:00 | [id number] 200 ACTUAT | [facility] | | | albuterol 0.09 MG/ACTUAT | | | | Metered Dose I | | + + + + | 2022-03-26 00:00 | [id number] 200 ACTUAT | [facility] | | | albuterol 0.09 MG/ACTUAT | | | | Metered Dose I | | + + + + | 2022-04-04 00:00 | [id number] 200 ACTUAT | [facility] | | | albuterol 0.09 MG/ACTUAT | | | | Metered Dose I | | + + + + | 2022-04-06 00:00 | [id number] 200 ACTUAT | [facility] | | | albuterol 0.09 MG/ACTUAT | | | | Metered Dose I | | + + + + | 2022-04-08 00:00 | [id number] 200 ACTUAT | [facility] | | | albuterol 0.09 MG/ACTUAT | | | | Metered Dose I | | + + + + | 2022-04-13 00:00 | [id number] 200 ACTUAT | [facility] | | | albuterol 0.09 MG/ACTUAT | | | | Metered Dose I | | + + + + | 2022-04-19 00:00 | [id number] 200 ACTUAT | [facility] | | | albuterol 0.09 MG/ACTUAT | | | | Metered Dose I | | + + + + | 2022-01-05 00:00 | METFORMIN HCL | [facility] | + + + + | 2022-01-26 00:00 | METFORMIN HCL | [facility] | + + + + | 2022-01-29 00:00 | METFORMIN HCL | [facility] | + + + + | 2022-02-08 00:00 | METFORMIN HCL | [facility] | + + + + | 2022-02-28 00:00 | METFORMIN HCL | [facility] | + + + + | 2022-02-28 00:00 | METFORMIN HCL | [facility] | + + + + | 2022-03-14 00:00 | METFORMIN HCL | [facility] | + + + + | 2022-03-17 00:00 | METFORMIN HCL | [facility] | + + + + | 2022-03-25 00:00 | METFORMIN HCL | [facility] | + + + + | 2022-03-26 00:00 | METFORMIN HCL | [facility] | + + + + | 2022-04-04 00:00 | METFORMIN HCL | [facility] | + + + + | 2022-04-06 00:00 | METFORMIN HCL | [facility] | + + + + | 2022-04-08 00:00 | METFORMIN HCL | [facility] | + + + + | 2022-04-13 00:00 | METFORMIN HCL | [facility] | + + + + | 2022-04-19 00:00 | METFORMIN HCL | [facility] | + + + + | 2022-01-03 00:00 | metformin hydrochloride | [facility] | | | 1000 MG Oral Tablet | | + + + + | 2022-01-22 00:00 | metformin hydrochloride | [facility] | | | 1000 MG Oral Tablet | | + + + + | 2022-01-24 00:00 | metformin hydrochloride | [facility] | | | 1000 MG Oral Tablet | | + + + + | 2022-02-01 00:00 | metformin hydrochloride | [facility] | | | 1000 MG Oral Tablet | | + + + + | 2022-02-28 00:00 | metformin hydrochloride | [facility] | | | 1000 MG Oral Tablet | | + + + + | 2022-03-14 00:00 | metformin hydrochloride | [facility] | | | 1000 MG Oral Tablet | | + + + + | 2022-03-17 00:00 | metformin hydrochloride | [facility] | | | 1000 MG Oral Tablet | | + + + + | 2022-03-25 00:00 | metformin hydrochloride | [facility] | | | 1000 MG Oral Tablet | | + + + + | 2022-03-26 00:00 | metformin hydrochloride | [facility] | | | 1000 MG Oral Tablet | | + + + + | 2022-04-04 00:00 | metformin hydrochloride | [facility] | | | 1000 MG Oral Tablet | | + + + + | 2022-04-06 00:00 | metformin hydrochloride | [facility] | | | 1000 MG Oral Tablet | | + + + + | 2022-04-08 00:00 | metformin hydrochloride | [facility] | | | 1000 MG Oral Tablet | | + + + + | 2022-04-13 00:00 | metformin hydrochloride | [facility] | | | 1000 MG Oral Tablet | | + + + + | 2022-04-19 00:00 | metformin hydrochloride | [facility] | | | 1000 MG Oral Tablet | | + + + + | 2022-01-05 00:00 | METOPROLOL TARTRATE | [facility] | + + + + | 2022-01-26 00:00 | METOPROLOL TARTRATE | [facility] | + + + + | 2022-01-29 00:00 | METOPROLOL TARTRATE | [facility] | + + + + | 2022-02-08 00:00 | METOPROLOL TARTRATE | [facility] | + + + + | 2022-02-28 00:00 | METOPROLOL TARTRATE | [facility] | + + + + | 2022-02-28 00:00 | METOPROLOL TARTRATE | [facility] | + + + + | 2022-03-14 00:00 | METOPROLOL TARTRATE | [facility] | + + + + | 2022-03-17 00:00 | METOPROLOL TARTRATE | [facility] | + + + + | 2022-03-25 00:00 | METOPROLOL TARTRATE | [facility] [place] | + + + + | 2022-03-26 00:00 | METOPROLOL TARTRATE | [facility] [place] | + + + + | 2022-04-04 00:00 | METOPROLOL TARTRATE | [facility] [place] | + + + + | 2022-04-06 00:00 | METOPROLOL TARTRATE | [facility] [place] | + + + + | 2022-04-08 00:00 | METOPROLOL TARTRATE | [facility] [place] | + + + + | 2022-04-13 00:00 | METOPROLOL TARTRATE | [facility] [place] | + + + + | 2022-04-19 00:00 | METOPROLOL TARTRATE | [facility] [place] | + + + + | 2022-01-03 00:00 | metoprolol tartrate 25 MG | [facility] [place] | | | Oral Tablet | | + + + + | 2022-01-22 00:00 | metoprolol tartrate 25 MG | [facility] [place] | | | Oral Tablet | | + + + + | 2022-01-24 00:00 | metoprolol tartrate 25 MG | [facility] [place] | | | Oral Tablet | | + + + + | 2022-02-01 00:00 | metoprolol tartrate 25 MG | [facility] [place] | | | Oral Tablet | | + + + + | 2022-02-28 00:00 | metoprolol tartrate 25 MG | [facility] [place] | | | Oral Tablet | | + + + + | 2022-03-14 00:00 | metoprolol tartrate 25 MG | [facility] [place] | | | Oral Tablet | | + + + + | 2022-03-17 00:00 | metoprolol tartrate 25 MG | [facility] [place] | | | Oral Tablet | | + + + + | 2022-03-25 00:00 | metoprolol tartrate 25 MG | [facility] [place] | | | Oral Tablet | | + + + + | 2022-03-26 00:00 | metoprolol tartrate 25 MG | [facility] [place] | | | Oral Tablet | | + + + + | 2022-04-04 00:00 | metoprolol tartrate 25 MG | [facility] [place] | | | Oral Tablet | | + + + + | 2022-04-06 00:00 | metoprolol tartrate 25 MG | [facility] [place] | | | Oral Tablet | | + + + + | 2022-04-08 00:00 | metoprolol tartrate 25 MG | [facility] [facility] | | | Oral Tablet | | + + + + | 2022-04-13 00:00 | metoprolol tartrate 25 MG | [facility] | | | Oral Tablet | | + + + + | 2022-04-19 00:00 | metoprolol tartrate 25 MG | [facility] | | | Oral Tablet | | + + + + | 2016-06-17 00:00 | ONDANSETRON | [facility] | + + + + | 2016-06-17 00:00 | ONDANSETRON | [facility] | + + + + | 2016-06-17 00:00 | ONDANSETRON | [facility] | + + + + | 2016-06-17 00:00 | ONDANSETRON | [facility] | + + + + | 2016-06-17 00:00 | ONDANSETRON | [facility] | + + + + | 2016-06-17 00:00 | ONDANSETRON | [facility] | + + + + | 2016-06-17 00:00 | ONDANSETRON | [facility] | + + + + | 2016-06-17 00:00 | ONDANSETRON | [facility] | + + + + | 2016-06-17 00:00 | ONDANSETRON | [facility] | + + + + | 2016-06-17 00:00 | ondansetron 4 MG | [facility] | | | Disintegrating Oral Tablet | | | | [Zofran] | | + + + + | 2019-12-16 00:00 | | [facility] | | | LOSARTAN/HYDROCHLOROTHIAZID | | | | E | | + + + + | 2019-12-16 00:00 | | [facility] | | | LOSARTAN/HYDROCHLOROTHIAZID | | | | E | | + + + + | 2019-12-16 00:00 | | [facility] | | | LOSARTAN/HYDROCHLOROTHIAZID | | | | E | | + + + + | 2019-12-16 00:00 | | [facility] | | | LOSARTAN/HYDROCHLOROTHIAZID | | | | E | | + + + + | 2019-12-16 00:00 | | [facility] | | | LOSARTAN/HYDROCHLOROTHIAZID | | | | E | | + + + + | 2019-12-16 00:00 | | [facility] | | | LOSARTAN/HYDROCHLOROTHIAZID | | | | E | | + + + + | 2019-12-16 00:00 | | [facility] | | | LOSARTAN/HYDROCHLOROTHIAZID | | | | E | | + + + + | 2019-12-16 00:00 | | [facility] | | | LOSARTAN/HYDROCHLOROTHIAZID | | | | E | | + + + + | 2019-12-16 00:00 | | [facility] | | | LOSARTAN/HYDROCHLOROTHIAZID | | | | E | | + + + + | 2022-01-05 00:00 | | [facility] | | | LOSARTAN/HYDROCHLOROTHIAZID | | | | E | | + + + + | 2022-01-26 00:00 | | [facility] | | | LOSARTAN/HYDROCHLOROTHIAZID | | | | E | | + + + + | 2022-01-29 00:00 | | [facility] | | | LOSARTAN/HYDROCHLOROTHIAZID | | | | E | | + + + + | 2022-02-08 00:00 | | [facility] | | | LOSARTAN/HYDROCHLOROTHIAZID | | | | E | | + + + + | 2022-02-28 00:00 | | [facility] | | | LOSARTAN/HYDROCHLOROTHIAZID | | | | E | | + + + + | 2022-02-28 00:00 | | [facility] | | | LOSARTAN/HYDROCHLOROTHIAZID | | | | E | | + + + + | 2022-03-14 00:00 | | [facility] | | | LOSARTAN/HYDROCHLOROTHIAZID | | | | E | | + + + + | 2022-03-17 00:00 | | [facility] | | | LOSARTAN/HYDROCHLOROTHIAZID | | | | E | | + + + + | 2022-03-25 00:00 | | [facility] | | | LOSARTAN/HYDROCHLOROTHIAZID | | | | E | | + + + + | 2022-03-26 00:00 | | [facility] | | | LOSARTAN/HYDROCHLOROTHIAZID | | | | E | | + + + + | 2022-04-04 00:00 | | [facility] | | | LOSARTAN/HYDROCHLOROTHIAZID | | | | E | | + + + + | 2022-04-06 00:00 | | [facility] | | | LOSARTAN/HYDROCHLOROTHIAZID | | | | E | | + + + + | 2022-04-08 00:00 | | [facility] | | | LOSARTAN/HYDROCHLOROTHIAZID | | | | E | | + + + + | 2022-04-13 00:00 | | [facility] | | | LOSARTAN/HYDROCHLOROTHIAZID | | | | E | | + + + + | 2022-04-19 00:00 | | [facility] | | | LOSARTAN/HYDROCHLOROTHIAZID | | | | E | | + + + + | 2019-12-16 00:00 | hydrochlorothiazide 12.5 | [facility] | | | MG / losartan potassium 50 | | | | MG Oral | | + + + + | 2022-01-03 00:00 | hydrochlorothiazide 12.5 | [facility] | | | MG / losartan potassium 50 | | | | MG Oral | | + + + + | 2022-01-22 00:00 | hydrochlorothiazide 12.5 | [facility] | | | MG / losartan potassium 50 | | | | MG Oral | | + + + + | 2022-01-24 00:00 | hydrochlorothiazide 12.5 | [facility] | | | MG / losartan potassium 50 | | | | MG Oral | | + + + + | 2022-02-01 00:00 | hydrochlorothiazide 12.5 | [facility] | | | MG / losartan potassium 50 | | | | MG Oral | | + + + + | 2022-02-28 00:00 | hydrochlorothiazide 12.5 | [facility] | | | MG / losartan potassium 50 | | | | MG Oral | | + + + + | 2022-03-14 00:00 | hydrochlorothiazide 12.5 | [facility] | | | MG / losartan potassium 50 | | | | MG Oral | | + + + + | 2022-03-17 00:00 | hydrochlorothiazide 12.5 | [facility] | | | MG / losartan potassium 50 | | | | MG Oral | | + + + + | 2022-03-25 00:00 | hydrochlorothiazide 12.5 | [facility] | | | MG / losartan potassium 50 | | | | MG Oral | | + + + + | 2022-03-26 00:00 | hydrochlorothiazide 12.5 | [facility] | | | MG / losartan potassium 50 | | | | MG Oral | | + + + + | 2022-04-04 00:00 | hydrochlorothiazide 12.5 | [facility] | | | MG / losartan potassium 50 | | | | MG Oral | | + + + + | 2022-04-06 00:00 | hydrochlorothiazide 12.5 | [facility] | | | MG / losartan potassium 50 | | | | MG Oral | | + + + + | 2022-04-08 00:00 | hydrochlorothiazide 12.5 | [facility] | | | MG / losartan potassium 50 | | | | MG Oral | | + + + + | 2022-04-13 00:00 | hydrochlorothiazide 12.5 | [facility] | | | MG / losartan potassium 50 | | | | MG Oral | | + + + + | 2022-04-19 00:00 | hydrochlorothiazide 12.5 | [facility] | | | MG / losartan potassium 50 | | | | MG Oral | | + + + + | 2022-03-17 00:00 | MECLIZINE HCL | [facility] | + + + + | 2022-03-17 00:00 | MECLIZINE HCL | [facility] | + + + + | 2022-03-17 00:00 | MECLIZINE HCL | [facility] | + + + + | 2022-03-17 00:00 | MECLIZINE HCL | [facility] | + + + + | 2022-03-17 00:00 | MECLIZINE HCL | [facility] | + + + + | 2022-03-17 00:00 | meclizine hydrochloride 25 | [facility] | | | MG Oral Tablet | | + + + + | 2014-03-24 00:00 | GUAIFENESIN/CODEINE | [facility] | | | PHOSPHATE | | + + + + | 2014-03-24 00:00 | GUAIFENESIN/CODEINE | [facility] | | | PHOSPHATE | | + + + + | 2014-03-24 00:00 | GUAIFENESIN/CODEINE | [facility] | | | PHOSPHATE | | + + + + | 2014-03-24 00:00 | GUAIFENESIN/CODEINE | [facility] | | | PHOSPHATE | | + + + + | 2014-03-24 00:00 | GUAIFENESIN/CODEINE | [facility] | | | PHOSPHATE | | + + + + | 2014-03-24 00:00 | GUAIFENESIN/CODEINE | [facility] | | | PHOSPHATE | | + + + + | 2014-03-24 00:00 | GUAIFENESIN/CODEINE | [facility] | | | PHOSPHATE | | + + + + | 2014-03-24 00:00 | GUAIFENESIN/CODEINE | [facility] | | | PHOSPHATE | | + + + + | 2014-03-24 00:00 | GUAIFENESIN/CODEINE | [facility] | | | PHOSPHATE | | + + + + | 2014-03-24 00:00 | codeine phosphate 2 MG/ML | [facility] | | | / guaifenesin 20 MG/ML Oral | | | | [facility] | | + + + + Problems + + + + | date | description | facility | + + + + | 2014-03-24 00:00 | Acute bronchitis | [facility] | + + + + | 2014-03-24 00:00 | Acute bronchitis | [facility] | + + + + | 2014-03-24 00:00 | Acute bronchitis | [facility] | + + + + | 2014-03-24 00:00 | Acute bronchitis | [facility] | + + + + | 2014-03-24 00:00 | Acute bronchitis | [facility] | + + + + | 2014-03-24 00:00 | Acute bronchitis | [facility] | + + + + | 2014-03-24 00:00 | Acute bronchitis | [facility] | + + + + | 2014-03-24 00:00 | Acute bronchitis | [facility] | + + + + | 2014-03-24 00:00 | Acute bronchitis | [facility] | + + + + | 2014-11-22 00:00 | Candidal dermatitis | [facility] | + + + + | 2014-11-22 00:00 | Asthma exacerbation | [facility] | + + + + | 2014-11-22 00:00 | Candidiasis of skin | [facility] | + + + + | 2014-11-22 00:00 | Candidiasis of skin | [facility] | + + + + | 2014-11-22 00:00 | Candidiasis of skin | [facility] | + + + + | 2014-11-22 00:00 | Candidiasis of skin | [facility] | + + + + | 2014-11-22 00:00 | Candidiasis of skin | [facility] | + + + + | 2014-11-22 00:00 | Candidiasis of skin | [facility] | + + + + | 2014-11-22 00:00 | Candidiasis of skin | [facility] | + + + + | 2014-11-22 00:00 | Candidiasis of skin | [facility] | + + + + | 2014-11-22 00:00 | Candidiasis of skin | [facility] | + + + + | 2014-11-22 00:00 | Asthma with acute | [facility] | | | exacerbation | | + + + + | 2014-11-22 00:00 | Asthma with acute | [facility] | | | exacerbation | | + + + + | 2014-11-22 00:00 | Asthma with acute | [facility] | | | exacerbation | | + + + + | 2014-11-22 00:00 | Asthma with acute | [facility] | | | exacerbation | | + + + + | 2014-11-22 00:00 | Asthma with acute | [facility] | | | exacerbation | | + + + + | 2014-11-22 00:00 | Asthma with acute | [facility] | | | exacerbation | | + + + + | 2014-11-22 00:00 | Asthma with acute | [facility] | | | exacerbation | | + + + + | 2014-11-22 00:00 | Asthma with acute | [facility] | | | exacerbation | | + + + + | 2014-11-22 00:00 | Asthma with acute | [facility] | | | exacerbation | | + + + + | 2015-03-18 00:00 | Tonsillitis | [facility] | + + + + | 2015-03-18 00:00 | Tonsillitis | [facility] | + + + + | 2015-03-18 00:00 | Tonsillitis | [facility] | + + + + | 2015-03-18 00:00 | Tonsillitis | [facility] | + + + + | 2015-03-18 00:00 | Tonsillitis | [facility] | + + + + | 2015-03-18 00:00 | Tonsillitis | [facility] | + + + + | 2015-03-18 00:00 | Tonsillitis | [facility] | + + + + | 2015-03-18 00:00 | Tonsillitis | [facility] | + + + + | 2015-03-18 00:00 | Tonsillitis | [facility] | + + + + | 2015-03-18 00:00 | Globus sensation | [facility] | + + + + | 2015-03-18 00:00 | Globus sensation | [facility] | + + + + | 2015-03-18 00:00 | Globus sensation | [facility] | + + + + | 2015-03-18 00:00 | Globus sensation | [facility] | + + + + | 2015-03-18 00:00 | Globus sensation | [facility] | + + + + | 2015-03-18 00:00 | Globus sensation | [facility] | + + + + | 2015-03-18 00:00 | Globus sensation | [facility] | + + + + | 2015-03-18 00:00 | Globus sensation | [facility] | + + + + | 2015-03-18 00:00 | Globus sensation | [facility] | + + + + | 2015-04-04 00:00 | Asthma attack | [facility] | + + + + | 2015-04-04 00:00 | Anxiety | [facility] | + + + + | 2015-04-04 00:00 | Anxiety | [facility] | + + + + | 2015-04-04 00:00 | Anxiety | [facility] | + + + + | 2015-04-04 00:00 | Anxiety | [facility] | + + + + | 2015-04-04 00:00 | Anxiety | [facility] | + + + + | 2015-04-04 00:00 | Anxiety | [facility] | + + + + | 2015-04-04 00:00 | Anxiety | [facility] | + + + + | 2015-04-04 00:00 | Anxiety | [facility] | + + + + | 2015-04-04 00:00 | Anxiety | [facility] | + + + + | 2015-04-04 00:00 | Exacerbation of asthma | [facility] | + + + + | 2015-04-04 00:00 | Exacerbation of asthma | [facility] | + + + + | 2015-04-04 00:00 | Exacerbation of asthma | [facility] | + + + + | 2015-04-04 00:00 | Exacerbation of asthma | [facility] | + + + + | 2015-04-04 00:00 | Exacerbation of asthma | [facility] | + + + + | 2015-04-04 00:00 | Exacerbation of asthma | [facility] | + + + + | 2015-04-04 00:00 | Exacerbation of asthma | [facility] | + + + + | 2015-04-04 00:00 | Exacerbation of asthma | [facility] | + + + + | 2015-04-04 00:00 | Exacerbation of asthma | [facility] | + + + + | 2015-04-15 00:00 | Contusion of upper | [facility] | | | extremity | | + + + + | 2015-04-15 00:00 | Contusion of upper | [facility] | | | extremity | | + + + + | 2015-04-15 00:00 | Contusion of upper | [facility] | | | extremity | | + + + + | 2015-04-15 00:00 | Contusion of upper | [facility] | | | extremity | | + + + + | 2015-04-15 00:00 | Contusion of upper | [facility] | | | extremity | | + + + + | 2015-04-15 00:00 | Contusion of upper | [facility] | | | extremity | | + + + + | 2015-04-15 00:00 | Contusion of upper | [facility] | | | extremity | | + + + + | 2015-04-15 00:00 | Contusion of upper | [facility] | | | extremity | | + + + + | 2015-04-15 00:00 | Contusion of upper | [facility] | | | extremity | | + + + + | 2016-06-17 00:00 | Viral URI with cough | [facility] | + + + + | 2016-06-17 00:00 | Viral upper respiratory | [facility] | | | tract infection with cough | | + + + + | 2016-06-17 00:00 | Viral upper respiratory | [facility] | | | tract infection with cough | | + + + + | 2016-06-17 00:00 | Viral upper respiratory | [facility] | | | tract infection with cough | | + + + + | 2016-06-17 00:00 | Viral upper respiratory | [facility] | | | tract infection with cough | | + + + + | 2016-06-17 00:00 | Viral upper respiratory | [facility] | | | tract infection with cough | | + + + + | 2016-06-17 00:00 | Viral upper respiratory | [facility] | | | tract infection with cough | | + + + + | 2016-06-17 00:00 | Viral upper respiratory | [facility] | | | tract infection with cough | | + + + + | 2016-06-17 00:00 | Viral upper respiratory | [facility] | | | tract infection with cough | | + + + + | 2016-06-17 00:00 | Viral upper respiratory | [facility] | | | tract infection with cough | | + + + + | 2016-07-16 00:00 | Encounter for medical | [facility] | | | screening examination | | + + + + | 2016-07-16 00:00 | Encounter for medical | [facility] | | | screening examination | | + + + + | 2016-07-16 00:00 | Encounter for medical | [facility] | | | screening examination | | + + + + | 2016-07-16 00:00 | Encounter for medical [facility] | | | screening examination | | + + + + | 2016-07-16 00:00 | Encounter for medical | [facility] | | | screening examination | | + + + + | 2016-07-16 00:00 | Encounter for medical [facility] | | | screening examination | | + + + + | 2016-07-16 00:00 | Encounter for medical | [facility] | | | screening examination | | + + + + | 2016-07-16 00:00 | Encounter for medical | [facility] | | | screening examination | | + + + + | 2016-07-16 00:00 | Encounter for medical | [facility] | | | screening examination | | + + + + | 2016-12-19 00:00 | Facial contusion | [facility] | + + + + | 2016-12-19 00:00 | Contusion of face | [facility] | + + + + | 2016-12-19 00:00 | Contusion of face | [facility] | + + + + | 2016-12-19 00:00 | Contusion of face | [facility] | + + + + | 2016-12-19 00:00 | Contusion of face | [facility] | + + + + | 2016-12-19 00:00 | Contusion of face | [facility] | + + + + | 2016-12-19 00:00 | Contusion of face | [facility] | + + + + | 2016-12-19 00:00 | Contusion of face | [facility] | + + + + | 2016-12-19 00:00 | Contusion of face | [facility] | + + + + | 2016-12-19 00:00 | Contusion of face | [facility] | + + + + | 2018-10-06 00:00 | Left otitis externa | [facility] | + + + + | 2018-10-06 00:00 | Otitis externa of left ear | [facility] | | | | | + + + + | 2018-10-06 00:00 | Otitis externa of left ear | [facility] | | | | | + + + + | 2018-10-06 00:00 | Otitis externa of left ear | [facility] | | | | | + + + + | 2018-10-06 00:00 | Otitis externa of left ear | [facility] | | | | | + + + + | 2018-10-06 00:00 | Otitis externa of left ear | [facility] | | | | | + + + + | 2018-10-06 00:00 | Otitis externa of left ear | [facility] | | | | | + + + + | 2018-10-06 00:00 | Otitis externa of left ear | [facility] | | | | | + + + + | 2018-10-06 00:00 | Otitis externa of left ear | [facility] | | | | | + + + + | 2018-10-06 00:00 | Otitis externa of left ear | [facility] | | | | | + + + + | 2019-04-05 00:00 | Abdominal wall abscess | [facility] | + + + + | 2019-04-05 00:00 | Abdominal abscess | [facility] | + + + + | 2019-04-05 00:00 | Abdominal abscess | [facility] | + + + + | 2019-04-05 00:00 | Abdominal abscess | [facility] | + + + + | 2019-04-05 00:00 | Abdominal abscess | [facility] | + + + + | 2019-04-05 00:00 | Abdominal abscess | [facility] | + + + + | 2019-04-05 00:00 | Abdominal abscess | [facility] | + + + + | 2019-04-05 00:00 | Abdominal abscess | [facility] | + + + + | 2019-04-05 00:00 | Abdominal abscess | [facility] | + + + + | 2019-04-05 00:00 | Abdominal abscess | [facility] | + + + + | 2019-04-05 00:00 | Abscess of abdominal wall | [facility] | + + + + | 2019-04-05 00:00 | Abscess of abdominal wall | [facility] | + + + + | 2019-04-05 00:00 | Abscess of abdominal wall | [facility] | + + + + | 2019-04-05 00:00 | Abscess of abdominal wall | [facility] | + + + + | 2019-04-05 00:00 | Abscess of abdominal wall | [facility] | + + + + | 2019-04-05 00:00 | Abscess of abdominal wall | [facility] | + + + + | 2019-04-05 00:00 | Abscess of abdominal wall | [facility] | + + + + | 2019-04-05 00:00 | Abscess of abdominal wall | [facility] | + + + + | 2019-04-05 00:00 | Abscess of abdominal wall | [facility] | + + + + | 2019-09-24 00:00 | Right otitis externa | [facility] | + + + + | 2019-09-24 00:00 | Cutaneous abscess | [facility] | + + + + | 2019-09-24 00:00 | Otitis externa of right | [facility] | | | ear | | + + + + | 2019-09-24 00:00 | Otitis externa of right | [facility] | | | ear | | + + + + | 2019-09-24 00:00 | Otitis externa of right | [facility] | | | ear | | + + + + | 2019-09-24 00:00 | Otitis externa of right | [facility] | | | ear | | + + + + | 2019-09-24 00:00 | Otitis externa of right | [facility] | | | ear | | + + + + | 2019-09-24 00:00 | Otitis externa of right | [facility] | | | ear | | + + + + | 2019-09-24 00:00 | Otitis externa of right | [facility] | | | ear | | + + + + | 2019-09-24 00:00 | Otitis externa of right | [facility] | | | ear | | + + + + | 2019-09-24 00:00 | Otitis externa of right | [facility] | | | ear | | + + + + 2019-09-24 00:00 | Abscess of skin | [facility] | + + + + | 2019-09-24 00:00 | Abscess of skin | [facility] | + + + + | 2019-09-24 00:00 | Abscess of skin | [facility] | + + + + | 2019-09-24 00:00 | Abscess of skin | [facility] | + + + + | 2019-09-24 00:00 | Abscess of skin | [facility] | + + + + 2019-09-24 00:00 | Abscess of skin | [facility] | + + + + 2019-09-24 00:00 | Abscess of skin | [facility] | + + + + | 2019-09-24 00:00 | Abscess of skin | [facility] | + + + + | 2019-09-24 00:00 | Abscess of skin | [facility] | + + + + | 2019-12-16 00:00 | Poorly controlled diabetes | [facility] | | | mellitus | | + + + + | 2019-12-16 00:00 | Poorly controlled diabetes | [facility] | | | mellitus | | + + + + | 2019-12-16 00:00 | Poorly controlled diabetes | [facility] | | | mellitus | | + + + + | 2019-12-16 00:00 | Poorly controlled diabetes | [facility] | | | mellitus | | + + + + | 2019-12-16 00:00 | Poorly controlled diabetes | [facility] | | | mellitus | | + + + + | 2019-12-16 00:00 | Poorly controlled diabetes | [facility] | | | mellitus | | + + + + | 2019-12-16 00:00 | Poorly controlled diabetes | [facility] | | | mellitus | | + + + + | 2019-12-16 00:00 | Poorly controlled diabetes | [facility] | | | mellitus | | + + + + | 2019-12-16 00:00 | Poorly controlled diabetes | [facility] | | | mellitus | | + + + + | 2019-12-16 00:00 | Hypertension | [facility] | + + + + | 2019-12-16 00:00 | Hypertension | [facility] | + + + + | 2019-12-16 00:00 | Hypertension | [facility] | + + + + | 2019-12-16 00:00 | Hypertension | [facility] | + + + + | 2019-12-16 00:00 | Hypertension | [facility] | + + + + | 2019-12-16 00:00 | Hypertension | [facility] | + + + + | 2019-12-16 00:00 | Hypertension | [facility] | + + + + | 2019-12-16 00:00 | Hypertension | [facility] | + + + + | 2019-12-16 00:00 | Hypertension | [facility] | + + + + | 2019-12-16 00:00 | Chest pain | [facility] | + + + + | 2019-12-16 00:00 | Chest pain | [facility] | + + + + | 2019-12-16 00:00 | Chest pain | [facility] | + + + + | 2019-12-16 00:00 | Chest pain | [facility] | + + + + | 2019-12-16 00:00 | Chest pain | [facility] | + + + + | 2019-12-16 00:00 | Chest pain | [facility] | + + + + | 2019-12-16 00:00 | Chest pain | [facility] | + + + + | 2019-12-16 00:00 | Chest pain | [facility] | + + + + | 2019-12-16 00:00 | Chest pain | [facility] | + + + + | 2020-09-15 00:00 | UTI (urinary tract | [facility] | | | infection) | | + + + + | 2020-09-15 00:00 | Urinary tract infection | [facility] | + + + + | 2020-09-15 00:00 | Urinary tract infection | [facility] | + + + + | 2020-09-15 00:00 | Urinary tract infection | [facility] | + + + + | 2020-09-15 00:00 | Urinary tract infection | [facility] | + + + + | 2020-09-15 00:00 | Urinary tract infection | [facility] | + + + + | 2020-09-15 00:00 | Urinary tract infection | [facility] | + + + + | 2020-09-15 00:00 | Urinary tract infection | [facility] | + + + + | 2020-09-15 00:00 | Urinary tract infection | [facility] | + + + + | 2020-09-15 00:00 | Urinary tract infection | [facility] | + + + + | 2020-09-15 00:00 | Acute mastitis of left | [facility] | | | breast | | + + + + | 2020-09-15 00:00 | Acute mastitis of left | [facility] | | | breast | | + + + + | 2020-09-15 00:00 | Acute mastitis of left | [facility] | | | breast | | + + + + | 2020-09-15 00:00 | Acute mastitis of left | [facility] | | | breast | | + + + + | 2020-09-15 00:00 | Acute mastitis of left | [facility] | | | breast | | + + + + | 2020-09-15 00:00 | Acute mastitis of left | [facility] | | | breast | | + + + + | 2020-09-15 00:00 | Acute mastitis of left | [facility] | | | breast | | + + + + | 2020-09-15 00:00 | Acute mastitis of left | [facility] | | | breast | | + + + + | 2020-09-15 00:00 | Acute mastitis of left | [facility] | | | breast | | + + + + | 2020-10-23 00:00 | Congestive heart failure | [facility] | + + + + | 2020-10-23 00:00 | Congestive heart failure | [facility] | + + + + | 2020-10-23 00:00 | Congestive heart failure | [facility] | + + + + | 2020-10-23 00:00 | Congestive heart failure | [facility] | + + + + | 2020-10-23 00:00 | Congestive heart failure | [facility] | + + + + | 2020-10-23 00:00 | Congestive heart failure | [facility] | + + + + | 2020-10-23 00:00 | Congestive heart failure | [facility] | + + + + | 2020-10-23 00:00 | Congestive heart failure | [facility] | + + + + | 2020-10-23 00:00 | Congestive heart failure | [facility] | + + + + | 2020-11-01 00:00 | Allergic asthma | [facility] | + + + + | 2020-11-01 00:00 | Bronchitis | [facility] | + + + + | 2020-11-01 00:00 | Bronchitis | [facility] | + + + + | 2020-11-01 00:00 | Bronchitis | [facility] | + + + + | 2020-11-01 00:00 | Bronchitis | [facility] | + + + + | 2020-11-01 00:00 | Bronchitis | [facility] | + + + + | 2020-11-01 00:00 | Bronchitis | [facility] | + + + + | 2020-11-01 00:00 | Bronchitis | [facility] | + + + + | 2020-11-01 00:00 | Bronchitis | [facility] | + + + + | 2020-11-01 00:00 | Bronchitis | [facility] | + + + + | 2020-11-01 00:00 | Extrinsic asthma | [facility] | + + + + | 2020-11-01 00:00 | Extrinsic asthma | [facility] | + + + + | 2020-11-01 00:00 | Extrinsic asthma | [facility] | + + + + | 2020-11-01 00:00 | Extrinsic asthma | [facility] | + + + + | 2020-11-01 00:00 | Extrinsic asthma | [facility] | + + + + | 2020-11-01 00:00 | Extrinsic asthma | [facility] | + + + + | 2020-11-01 00:00 | Extrinsic asthma | [facility] | + + + + | 2020-11-01 00:00 | Extrinsic asthma | [facility] | + + + + | 2020-11-01 00:00 | Extrinsic asthma | [facility] | + + + + | 2020-11-01 00:00 | Hyperglycemia | [facility] | + + + + | 2020-11-01 00:00 | Hyperglycemia | [facility] | + + + + | 2020-11-01 00:00 | Hyperglycemia | [facility] | + + + + | 2020-11-01 00:00 | Hyperglycemia | [facility] | + + + + | 2020-11-01 00:00 | Hyperglycemia | [facility] | + + + + | 2020-11-01 00:00 | Hyperglycemia | [facility] | + + + + | 2020-11-01 00:00 | Hyperglycemia | [facility] | + + + + | 2020-11-01 00:00 | Hyperglycemia | [facility] | + + + + | 2020-11-01 00:00 | Hyperglycemia | [facility] | + + + + | 2021-10-26 00:00 | Febrile illness | [facility] | + + + + | 2021-10-26 00:00 | Febrile illness | [facility] | + + + + | 2021-10-26 00:00 | Febrile illness | [facility] | + + + + | 2021-10-26 00:00 | Febrile illness | [facility] | + + + + | 2021-10-26 00:00 | Febrile illness | [facility] | + + + + | 2021-10-26 00:00 | Febrile illness | [facility] | + + + + | 2021-10-26 00:00 | Febrile illness | [facility] | + + + + | 2021-10-26 00:00 | Febrile illness | [facility] | + + + + | 2021-10-26 00:00 | Febrile illness | [facility] | + + + + | 2021-11-02 00:00 | Myositis | [facility] | + + + + | 2021-11-02 00:00 | Myositis | [facility] | + + + + | 2021-11-02 00:00 | Myositis | [facility] | + + + + | 2021-11-02 00:00 | Myositis | [facility] | + + + + | 2021-11-02 00:00 | Myositis | [facility] | + + + + | 2021-11-02 00:00 | Myositis | [facility] | + + + + | 2021-11-02 00:00 | Myositis | [facility] | + + + + | 2021-11-02 00:00 | Myositis | [facility] | + + + + | 2021-11-02 00:00 | Myositis | [facility] | + + + + | 2021-12-20 14:56:44 | Methicillin resistant | [facility] | | | Staphylococcus aureus | | | | infection, unspecified site | | | | | | + + + + | 2021-12-20 14:56:44 | Methicillin resistant | [facility] | | | Staphylococcus aureus | | | | infection as the cause of | | | | diseases classified | | | | elsewhere | | + + + + | 2021-12-20 14:56:44 | Type 2 diabetes mellitus | [facility] | | | with hyperglycemia | | + + + + | 2021-12-20 14:56:44 | Type 2 diabetes mellitus | [facility] | | | with unspecified | | | | complications | | + + + + | 2021-12-20 14:56:44 | Essential (primary) | [facility] | | | hypertension | | + + + + | 2021-12-20 14:56:44 | 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 | | | | pectoris | | + + + + | 2021-12-20 14:56:44 | Cutaneous abscess of chest | [facility] | | | wall | | + + + + | 2021-12-20 14:56:44 | Cutaneous abscess of right | [facility] | | | foot | | + + + + | 2021-12-20 14:56:44 | Abscess of bursa, right | [facility] | | | ankle and foot | | + + + + | 2021-12-20 14:56:44 | Other acute osteomyelitis, | [facility] | | | left shoulder | | + + + + | 2021-12-20 14:56:44 | Bacteremia | [facility] | + + + + | 2022-01-22 00:00 | CHF exacerbation | [facility] | + + + + | 2022-01-22 00:00 | Acute on chronic | [facility] | | | congestive heart failure | | + + + + | 2022-01-22 00:00 | Acute on chronic | [facility] | | | congestive heart failure | | + + + + | 2022-01-22 00:00 | Acute on chronic | [facility] | | | congestive heart failure | | + + + + | 2022-01-22 00:00 | Acute on chronic | [facility] | | | congestive heart failure | | + + + + | 2022-01-22 00:00 | Acute on chronic | [facility] | | | congestive heart failure | | + + + + | 2022-01-22 00:00 | Acute on chronic | [facility] | | | congestive heart failure | | + + + + | 2022-01-22 00:00 | Acute on chronic | [facility] | | | congestive heart failure | | + + + + | 2022-01-22 00:00 | Acute on chronic | [facility] | | | congestive heart failure | | + + + + | 2022-01-22 00:00 | Acute on chronic | [facility] | | | congestive heart failure | | + + + + | 2022-03-14 00:00 | Patient left without being | [facility] | | | seen | | + + + + | 2022-03-14 00:00 | Patient left without being | [facility] | | | seen | | + + + + | 2022-03-14 00:00 | Patient left without being | [facility] | | | seen | | + + + + | 2022-03-14 00:00 | Patient left without being | [facility] | | | seen | | + + + + | 2022-03-14 00:00 | Patient left without being | [facility] | | | seen | | + + + + | 2022-03-14 00:00 | Patient left without being | [facility] | | | seen | | + + + + | 2022-03-17 00:00 | Vertigo | [facility] | + + + + | 2022-03-17 00:00 | Vertigo | [facility] | + + + + | 2022-03-17 00:00 | Vertigo | [facility] | + + + + | 2022-03-17 00:00 | Vertigo | [facility] | + + + + | 2022-03-17 00:00 | Vertigo | [facility] | + + + + | 2022-03-17 00:00 | Vertigo | [facility] | + + + + | 2022-03-25 00:00 | Menorrhagia | [facility] | + + + + | 2022-03-25 00:00 | Menorrhagia | [facility] | + + + + | 2022-03-25 00:00 | Menorrhagia | [facility] | + + + + | 2022-03-25 00:00 | Menorrhagia | [facility] | + + + + | 2022-03-25 00:00 | Menorrhagia | [facility] | + + + + | 2022-03-25 00:00 | Menorrhagia | [facility] | + + + + | 2022-04-08 00:00 | Chest wall pain | [facility] | + + + + | 2022-04-08 00:00 | Chest wall pain | [facility] | + + + + | 2022-04-08 00:00 | Chest wall pain | [facility] | + + + + | 2022-04-08 00:00 | Chest wall pain | [facility] | + + + + | 2022-04-19 00:00 | Atypical chest pain | [facility] | + + + + | 2022-04-19 00:00 | Atypical chest pain | [facility] | + + + + Procedures No information. Results/Labs +--------+--------+ +---------+--------+---------+ | test | date | facility | value | unit | notes | +--------+--------+ +---------+--------+---------+ + + | Result panel 1 | + + + + + + + + + | | 2021-10-26 | [facility] | NEGATIVE | (missing) | (missing) | | (unavailable | 16:20 [facility] | | | | + + + + + + + + + | Result panel 2 | + + + + + + + + + | Serum or | 2021-10-26 | [facility] | NEGATIVE | (missing) | (missing) | | plasma | 16:20 | [facility] | | | [facility] | | | | | tropin | | | | | | | ( | | | | | | | test) | | | | | | | detection | | | | | | + + + + + + + + + | Result panel 3 | + + + + + + + + + | Serum or | 2021-10-26 | [facility] | NEGATIVE | (missing) | (missing) | | plasma | 16:20 | [facility] | | | [facility] | | | | | tropin | | | | | | | ( | | | | | | | test) | | | | | | | detection | | | | | | + + + + + + + + + | Result panel 4 | + + + + + + + + + | Serum or | 2021-10-26 | [facility] | NEGATIVE | (missing) | (missing) | | plasma | 16:20 | [facility] | | | | [facility] | | | | | tropin | | | | | | | ( | | | | | | | test) | | | | | | | detection | | | | | | + + + + + + + + + | Result panel 5 | + + + + + + + + + | | 2021-10-26 | [facility] | NEGATIVE | (missing) | (missing) | | (unavailable | 16:20 | [facility] | | | | + + + + + + + + + | Result panel 6 | + + + + + + + + + | | 2021-10-26 | [facility] | NEGATIVE | (missing) | (missing) | | (unavailable | 16:20 | [facility] | | | | + + + + + + + + + | Result panel 7 | + + + + + + + + + | Serum or | 2021-10-26 | [facility] | NEGATIVE | (missing) | (missing) | | plasma | 16:20 | [facility] | | | | [facility] | | | | | tropin | | | | | | | ( | | | | | | | test) | | | | | | | detection | | | | | | + + + + + + + + + | Result panel 8 | + + + + + + + + + | | 2021-10-26 | [facility] | NEGATIVE | (missing) | (missing) | | (unavailable | 16:20 | [facility] | | | | + + + + + + + + + | Result panel 9 | + + + + + + + + + | Color of | 2021-10-26 | [facility] | YELLOW | (missing) | (missing) | | Urine by | 19:09 | [facility] | | | | | Auto | | Hospital | | | | + + + + + + + + + | Result panel 10 | + + + + + + + + + | Character | 2021-10-26 | [facility] | TURBID | (missing) | (missing) | | of Urine | 19:09 | [facility] | | | | + + + + + + + + + | Result panel 11 | + + + + + + + + + | Glucose | 2021-10-26 | [facility] | >=1000 | (missing) | (missing) | | [Presence] | 19:09 | [facility] | | | | | in Urine by | | Hospital | | | | | Test strip | | | | | | + + + + + + + + + | Result panel 12 | + + + + + + + + + | Urine total | 2021-10-26 | [facility] | NEGATIVE | (missing) | (missing) | | bilirubin | 19:09 | [facility] | | | | | detection by | | Hospital | | | | | test strip | | | | | | + + + + + + + + + | Result panel 13 | + + + + + +---------+ + + | Urine | 2021-10-26 | [facility] | SMALL | (missing) | (missing) | | ketones | 19:09 | [facility] | | | | | detection by | | Hospital | | | | | test strip | | | | | | + + + +---------+ + + + + | Result panel 14 | + + + + + +---------+ + + | Specific | 2021-10-26 | [facility] | 1.020 | (missing) | (missing) | | gravity ur | 19:09 | [facility] | | | | | dipstick | | Hospital | | | | + + + +---------+ + + + + | Result panel 15 | + + + + + +---------+ + + | Urine | 2021-10-26 | [facility] | LARGE | (missing) | (missing) | | hemoglobin | 19:09 | [facility] | | | | | detection by | | Hospital | | | | | test strip | | | | | | + + + +---------+ + + + + | Result panel 16 | + + + + + +-------+ + + | Urine pH | 2021-10-26 | [facility] | 6.0 | (missing) | (missing) | | measurement | 19:09 | [facility] | | | | | by test | | Hospital | | | | | strip | | | | | | + + + +-------+ + + + + | Result panel 17 | + + + + + +---------+ + + | Protein | 2021-10-26 | [facility] | >=300 | (missing) | (missing) | | urine test | 19:09 | [facility] | | | | | strip | | Hospital | | | | + + + +---------+ + + + + | Result panel 18 | + + + + + +-------+ + + | | 2021-10-26 | [facility] | 2.0 | (missing) | (missing) | | Urobilinogen | 19:09 | [facility] | | | | | [facility] | | | | | [Mass/volume | | | | | | | ] in Urine | | | | | | | by Test | | | | | | | strip | | | | | | + + + +-------+ + + + + | Result panel 19 | + + + + + + + + + | Urine | 2021-10-26 | [facility] | POSITIVE | (missing) | (missing) | | nitrite | 19:09 | [facility] | | | | | detection by | | Hospital | | | | | test strip | | | | | | + + + + + + + + + | Result panel 20 | + + + + + +---------+ + + | Urine | 2021-10-26 | [facility] | SMALL | (missing) | (missing) | | leukocyte | 19:09 | [facility] | | | | | esterase | | Hospital | | | | | detection by | | | | | | | dipstick | | | | | | + + + +---------+ + + + + | Result panel 21 | + + + + + +-------+ + + | Automated | 2021-10-26 | [facility] | 4-6 | (missing) | (missing) | | urine | 19:09 | [facility] | | | | | sediment | | Hospital | | | | | erythrocyte | | | | | | | count by | | | | | | | microscopy | | | | | | | (number/high | | | | | | | power | | | | | | | field) | | | | | | + + + +-------+ + + + + | Result panel 22 | + + + + + +---------+ + + | Automated | 2021-10-26 | [facility] | 21-40 | (missing) | (missing) | | urine | 19:09 | [facility] | | | | | sediment | | Hospital | | | | | leukocyte | | | | | | | count by | | | | | | | microscopy | | | | | | | (number/high | | | | | | | power | | | | | | | field) | | | | | | + + + +---------+ + + + + | Result panel 23 | + + + + + + + + + | Automated | 2021-10-26 | [facility] | | (missing) | (missing) | | urine | 19:09 | [facility] | TRANSITIONAL | | | | sediment | | Hospital | 1+ | | | | epithelial | | | | | | | cell count | | | | | | | by | | | | | | | microscopy | | | | | | | (number/high | | | | | | | power | | | | | | | field) | | | | | | + + + + + + + + + | Result panel 24 | + + + + + + + + + | Bacterial | 2021-10-26 | [facility] | SEE | (missing) | (missing) | | urine | 19:09 | [facility] | SEPARATE | | | | culture | | Hospital | REPORT | | | + + + + + + + + + | Result panel 25 | + + + + + +-------+ + + | Reflexive | 2021-10-26 | [facility] | Yes | (missing) | (missing) | | urine | 19:09 | [facility] | | | | | bacterial | | Hospital | | | | | culture | | | | | | + + + +-------+ + + + + | Result panel 26 | + + + + + + + + + | Urinalysis | 2021-10-26 | [facility] | CLEAN CATCH | (missing) | (missing) | | specimen | 19:09 | [facility] | | | | | collection | | Hospital | | | | | method | | | | | | + + + + + + + + + | Result panel 27 | + + + + + + + + + | Bacterial | 2021-10-26 | [facility] | SEE | (missing) | (missing) | | urine | 19:09 | [facility] | SEPARATE | | | | culture | | Hospital | REPORT | | | + + + + + + + + + | Result panel 28 | + + + + + + + + + | Bacterial | 2021-10-26 | [facility] | SEE | (missing) | (missing) | | urine | 19:09 | [facility] | SEPARATE | | | | culture | | Hospital | REPORT | | | + + + + + + + + + | Result panel 29 | + + + + + + + + + | Bacterial | 2021-10-26 | [facility] | SEE | (missing) | (missing) | | urine | 19:09 | [facility] | SEPARATE | | | | culture | | Hospital | REPORT | | | + + + + + + + + + | Result panel 30 | + + + + + + + + + | | 2021-10-26 | [facility] | YELLOW | (missing) | (missing) | | (unavailable | 19:09 | [facility] ) | | [facility] | | | | + + + + + + + + + | Result panel 31 | + + + + + + + + + | | 2021-10-26 | [facility] | TURBID | (missing) | (missing) | | (unavailable | 19:09 | [facility] ) | | [facility] | | | | + + + + + + + + + | Result panel 32 | + + + + + + + + + | | 2021-10-26 | [facility] | >=1000 | (missing) | (missing) | | (unavailable | 19:09 | [facility] ) [facility] | | | | + + + + + + + + + | Result panel 33 | + + + + + + + + + | | 2021-10-26 | [facility] | NEGATIVE | (missing) | (missing) | | (unavailable | 19:09 | [facility] | | | | + + + + + + + + + | Result panel 34 | + + + + + +---------+ + + | | 2021-10-26 | [facility] | SMALL | (missing) | (missing) | | (unavailable | 19:09 | [facility] | | | | + + + +---------+ + + + + | Result panel 35 | + + + + + +---------+ + + | | 2021-10-26 | [facility] | 1.020 | (missing) | (missing) | | (unavailable | 19:09 | [facility] | | | | + + + +---------+ + + + + | Result panel 36 | + + + + + +---------+ + + | | 2021-10-26 | [facility] | LARGE | (missing) | (missing) | | (unavailable | 19:09 | [facility] | | | | + + + +---------+ + + + + | Result panel 37 | + + + + + +-------+ + + | | 2021-10-26 | [facility] | 6.0 | (missing) | (missing) | | (unavailable | 19:09 | [facility] | | | | + + + +-------+ + + + + | Result panel 38 | + + + + + +---------+ + + | | 2021-10-26 | [facility] | >=300 | (missing) | (missing) | | (unavailable | 19:09 | [facility] | | | | + + + +---------+ + + + + | Result panel 39 | + + + + + +-------+ + + | | 2021-10-26 | [facility] | 2.0 | (missing) | (missing) | | (unavailable | 19:09 | [facility] | | | | + + + +-------+ + + + + | Result panel 40 | + + + + + + + + + | | 2021-10-26 | [facility] | POSITIVE | (missing) | (missing) | | (unavailable | 19:09 | [facility] | | | | + + + + + + + + + | Result panel 41 | + + + + + +---------+ + + | | 2021-10-26 | [facility] | SMALL | (missing) | (missing) | | (unavailable | 19:09 | [facility] | | | | + + + +---------+ + + + + | Result panel 42 | + + + + + +-------+ + + | | 2021-10-26 | [facility] | 4-6 | (missing) | (missing) | | (unavailable | 19:09 | [facility] | | | | + + + +-------+ + + + + | Result panel 43 | + + + + + +---------+ + + | | 2021-10-26 | [facility] | 21-40 | (missing) | (missing) | | (unavailable | 19:09 | [facility] | | | | + + + +---------+ + + + + | Result panel 44 | + + + + + + + + + | | 2021-10-26 | [facility] | | (missing) | (missing) | | (unavailable | 19:09 | [facility] | TRANSITIONAL | | | | ) | | Hospital | 1+ | | | + + + + + + + + + | Result panel 45 | + + + + + +-------+ + + | | 2021-10-26 | [facility] | Yes | (missing) | (missing) | | (unavailable | 19:09 | [facility] | | | | + + + +-------+ + + + + | Result panel 46 | + + + + + + + + + | | 2021-10-26 | [facility] | CLEAN CATCH | (missing) | (missing) | | (unavailable | 19:09 | [facility] | | | | + + + + + + + + + | Result panel 47 | + + + + + +--------+ + + | Fibrin | 2021-10-27 | [facility] | 1.28 | (missing) | (missing) | | D-dimer FEU | 16:31 | [facility] | | | | | [Mass/volume | | Hospital | | | | | ] in | | | | | | | Platelet | | | | | | | poor plasma | | | | | | | by | | | | | | | Immunoassay | | | | | | + + + +--------+ + + + + | Result panel 48 | + + + + + +--------+ + + | | 2021-10-27 | [facility] | 1.28 | (missing) | (missing) | | (unavailable | 16:31 | [facility] | | | | + + + +--------+ + + + + | Result panel 49 | + + + + + +--------+ + + | Fibrin | 2021-10-27 | [facility] | 1.28 | (missing) | (missing) | | [facility] | 16:31 | [facility] | | | | | [Mass/volume | | Hospital | | | | | ] in | | | | | | | Platelet | | | | | | | poor plasma | | | | | | | by | | | | | | | Immunoassay | | | | | | + + + +--------+ + + + + | Result panel 50 | + + + + + +--------+ + + | Fibrin | 2021-10-27 | [facility] | 1.28 | (missing) | (missing) | | [facility] | 16:31 | [facility] | | | | | [Mass/volume | | Hospital | | | | | ] in | | | | | | | Platelet | | | | | | | poor plasma | | | | | | | by | | | | | | | Immunoassay | | | | | | + + + +--------+ + + + + | Result panel 51 | + + + + + +--------+ + + | | 2021-10-27 | [facility] | 1.28 | (missing) | (missing) | | (unavailable | 16:31 | [facility] | | | | + + + +--------+ + + + + | Result panel 52 | + + + + + +--------+ + + | | 2021-10-27 | [facility] | 1.28 | (missing) | (missing) | | (unavailable | 16:31 | [facility] | | | | + + + +--------+ + + + + | Result panel 53 | + + + + + +--------+ + + | | 2021-10-27 | [facility] | 1.28 | (missing) | (missing) | | (unavailable | 16:31 | [facility] | | | | + + + +--------+ + + + + | Result panel 54 | + + + + + +--------+ + + | Fibrin | 2021-10-27 | [facility] | 1.28 | (missing) | (missing) | | [facility] | 16:31 | [facility] | | | | | [Mass/volume | | Hospital | | | | | ] in | | | | | | | Platelet | | | | | | | poor plasma | | | | | | | by | | | | | | | Immunoassay | | | | | | + + + +--------+ + + + + | Result panel 55 | + + + + + + + + + | Serum | 2021-11-02 | [facility] | SEE SCANNED | (missing) | (missing) | | rheumatoid | 15:46 | [facility] | REPORT | | | | factor | | Hospital | | | | | measurement | | | | | | | (units/volum | | | | | | | e) by | | | | | | | nephelometry | | | | | | | | | | | | | + + + + + + + + + | Result panel 56 | + + + + + + + + + | | 2021-11-02 | [facility] | SEE SCANNED | (missing) | (missing) | | (unavailable | 15:46 | [facility] REPORT | | | | ) | | [facility] | | | | + + + + + + + + + | Result panel 57 | + + + + + + + + + | | 2021-11-02 | [facility] | SEE SCANNED | (missing) | (missing) | | (unavailable | 15:46 | [facility] REPORT | | | | ) | | [facility] | | | | + + + + + + + + + | Result panel 58 | + + + + + + + + + | Serum | 2021-11-02 | [facility] | SEE SCANNED | (missing) | (missing) | | nuclear | 15:46 | [facility] | REPORT | | | | antibody | | Hospital | | | | | titer by | | | | | | | immunofluore | | | | | | | scence | | | | | | + + + + + + + + + | Result panel 59 | + + + + + + + + + | Serum | 2021-11-02 | [facility] | SEE SCANNED | (missing) | (missing) | | rheumatoid | 15:46 | [facility] | REPORT | | | | factor | | Hospital | | | | | measurement | | | | | | | (units/volum | | | | | | | e) by | | | | | | | nephelometry | | | | | | | | | | | | | + + + + + + + + + | Result panel 60 | + + + + + + + + + | Serum | 2021-11-02 | [facility] | SEE SCANNED | (missing) | (missing) | | nuclear | 15:46 | [facility] | REPORT | | | | antibody | | Hospital | | | | | titer by | | | | | | | immunofluore | | | | | | | scence | | | | | | + + + + + + + + + | Result panel 61 | + + + + + + + + + | Serum | 2021-11-02 | [facility] | SEE SCANNED | (missing) | (missing) | | rheumatoid | 15:46 | [facility] | REPORT | | | | factor | | Hospital | | | | | measurement | | | | | | | (units/volum | | | | | | | e) by | | | | | | | nephelometry | | | | | | | | | | | | | + + + + + + + + + | Result panel 62 | + + + + + + + + + | Serum | 2021-11-02 | [facility] | SEE SCANNED | (missing) | (missing) | | nuclear | 15:46 | [facility] | REPORT | | | | antibody | | Hospital | | | | | titer by | | | | | | | immunofluore | | | | | | | scence | | | | | | + + + + + + + + + | Result panel 63 | + + + + + + + + + | | 2021-11-02 | [facility] | SEE SCANNED | (missing) | (missing) | | (unavailable | 15:46 | [facility] REPORT | | | | ) | | Hospital | | | | + + + + + + + + + | Result panel 64 | + + + + + + + + + | | 2021-11-02 | [facility] | SEE SCANNED | (missing) | (missing) | | (unavailable | 15:46 | [facility] REPORT | | | | ) | | Hospital | | | | + + + + + + + + + | Result panel 65 | + + + + + + + + + | | 2021-11-02 | [facility] | SEE SCANNED | (missing) | (missing) | | (unavailable | 15:46 | [facility] REPORT | | | | ) | | Hospital | | | | + + + + + + + + + | Result panel 66 | + + + + + + + + + | | 2021-11-02 | [facility] | SEE SCANNED | (missing) | (missing) | | (unavailable | 15:46 | [facility] REPORT | | | | ) | | Hospital | | | | + + + + + + + + + | Result panel 67 | + + + + + + + + + | | 2021-11-02 | [facility] | SEE SCANNED | (missing) | (missing) | | (unavailable | 15:46 | [facility] REPORT | | | | ) | | [facility] | | | | + + + + + + + + + | Result panel 68 | + + + + + + + + + | | 2021-11-02 | [facility] | SEE SCANNED | (missing) | (missing) | | (unavailable | 15:46 | [facility] REPORT | | | | ) | | Hospital | | | | + + + + + + + + + | Result panel 69 | + + + + + + + + + | Serum | 2021-11-02 | [facility] | SEE SCANNED | (missing) | (missing) | | rheumatoid | 15:46 | [facility] | REPORT | | | | factor | | Hospital | | | | | measurement | | | | | | | (units/volum | | | | | | | e) by | | | | | | | nephelometry | | | | | | | | | | | | | + + + + + + + + + | Result panel 70 | + + + + + + + + + | Serum | 2021-11-02 | [facility] | SEE SCANNED | (missing) | (missing) | | nuclear | 15:46 | [facility] | REPORT | | | | antibody | | Hospital | | | | | titer by | | | | | | | immunofluore | | | | | | | scence | | | | | | + + + + + + + + + | Result panel 71 | + + + + + +------+ + + | Serum or | 2021-11-22 | [facility] | 18 | (missing) | (missing) | | plasma | 13:22 | [facility] | | | | | creatine | | Hospital | | | | | kinase | | | | | | | measurement | | | | | | | (enzymatic | | | | | | | activity/vol | | | | | | | ume) | | | | | | + + + +------+ + + + + | Result panel 72 | + + + + + +-------+ + + | Serum or | 2021-11-22 | [facility] | 1.2 | (missing) | (missing) | | plasma | 13:22 | [facility] | | | | | lactate | | Hospital | | | | | measurement | | | | | | | (moles/volum | | | | | | | e) | | | | | | + + + +-------+ + + + + | Result panel 73 | + + + + + +--------+ + + | | 2021-11-22 | [facility] | 13.5 | (missing) | (missing) | | (unavailable | 13:22 | [facility] ) | | [facility] | | | | + + + +--------+ + + + + | Result panel 74 | + + + + + +--------+ + + | | 2021-11-22 | [facility] | 1.05 | (missing) | (missing) | | (unavailable | 13:22 | [facility] ) | | [facility] | | | | + + + +--------+ + + + + | Result panel 75 | + + + + + +--------+ + + | | 2021-11-22 | [facility] | 41.0 | (missing) | (missing) | | (unavailable | 13:22 | [facility] ) | | [facility] | | | | + + + +--------+ + + + + | Result panel 76 | + + + + + +------+ + + | | 2021-11-22 | [facility] | 18 | (missing) | (missing) | | (unavailable | 13:22 | [facility] ) | | [facility] | | | | + + + +------+ + + + + | Result panel 77 | + + + + + +-------+ + + | | 2021-11-22 | [facility] | 1.2 | (missing) | (missing) | | (unavailable | 13:22 | [facility] ) | | [facility] | | | | + + + +-------+ + + + + | Result panel 78 | + + + + + +--------+ + + | Prothrombin | 2021-11-22 | [facility] | 13.5 | (missing) | (missing) | | time (PT) | 13:22 | [facility] | | | | | in platelet | | Hospital | | | | | poor plasma | | | | | | | by | | | | | | | coagulation | | | | | | | assay | | | | | | + + + +--------+ + + + + | Result panel 79 | + + + + + +--------+ + + | INR in | 2021-11-22 | [facility] | 1.05 | (missing) | (missing) | | Platelet | 13:22 | [facility] | | | | | poor plasma | | Hospital | | | | | by | | | | | | | Coagulation | | | | | | | assay | | | | | | + + + +--------+ + + + + | Result panel 80 | + + + + + +--------+ + + | Activated | 2021-11-22 | [facility] | 41.0 | (missing) | (missing) | | partial | 13:22 | [facility] | | | | | thromboplast | | Hospital | | | | | in time | | | | | | | (aPTT) in | | | | | | | platelet | | | | | | | poor plasma | | | | | | | by | | | | | | | coagulation | | | | | | | assay | | | | | | + + + +--------+ + + + + | Result panel 81 | + + + + + +------+ + + | Serum or | 2021-11-22 | [facility] | 18 | (missing) | (missing) | | plasma | 13:22 | [facility] | | | | | creatine | | Hospital | | | | | kinase | | | | | | | measurement | | | | | | | (enzymatic | | | | | | | activity/vol | | | | | | | ume) | | | | | | + + + +------+ + + + + | Result panel 82 | + + + + + +-------+ + + | Serum or | 2021-11-22 | [facility] | 1.2 | (missing) | (missing) | | plasma | 13:22 | [facility] | | | | | lactate | | Hospital | | | | | measurement | | | | | | | (moles/volum | | | | | | | e) | | | | | | + + + +-------+ + + + + | Result panel 83 | + + + + + +--------+ + + | Prothrombin | 2021-11-22 | [facility] | 13.5 | (missing) | (missing) | | time (PT) | 13:22 | [facility] | | | | | in platelet | | Hospital | | | | | poor plasma | | | | | | | by | | | | | | | coagulation | | | | | | | assay | | | | | | + + + +--------+ + + + + | Result panel 84 | + + + + + +--------+ + + | INR in | 2021-11-22 | [facility] | 1.05 | (missing) | (missing) | | Platelet | 13:22 | [facility] | | | | | poor plasma | | Hospital | | | | | by | | | | | | | Coagulation | | | | | | | assay | | | | | | + + + +--------+ + + + + | Result panel 85 | + + + + + +--------+ + + | Activated | 2021-11-22 | [facility] | 41.0 | (missing) | (missing) | | partial | 13:22 | [facility] | | | | | thromboplast | | Hospital | | | | | in time | | | | | | | (aPTT) in | | | | | | | platelet | | | | | | | poor plasma | | | | | | | by | | | | | | | coagulation | | | | | | | assay | | | | | | + + + +--------+ + + + + | Result panel 86 | + + + + + +------+ + + | Serum or | 2021-11-22 | [facility] | 18 | (missing) | (missing) | | plasma | 13:22 | [facility] | | | | | creatine | | Hospital | | | | | kinase | | | | | | | measurement | | | | | | | (enzymatic | | | | | | | activity/vol | | | | | | | ume) | | | | | | + + + +------+ + + + + | Result panel 87 | + + + + + +-------+ + + | Serum or | 2021-11-22 | [facility] | 1.2 | (missing) | (missing) | | plasma | 13:22 | [facility] | | | | | lactate | | Hospital | | | | | measurement | | | | | | | (moles/volum | | | | | | | e) | | | | | | + + + +-------+ + + + + | Result panel 88 | + + + + + +--------+ + + | | 2021-11-22 | [facility] | 13.5 | (missing) | (missing) | | (unavailable | 13:22 | [facility] ) | | [facility] | | | | + + + +--------+ + + + + | Result panel 89 | + + + + + +--------+ + + | | 2021-11-22 | [facility] | 1.05 | (missing) | (missing) | | (unavailable | 13:22 | [facility] | | | | + + + +--------+ + + + + | Result panel 90 | + + + + + +--------+ + + | | 2021-11-22 | [facility] | 41.0 | (missing) | (missing) | | (unavailable | 13:22 | [facility] | | | | + + + +--------+ + + + + | Result panel 91 | + + + + + +------+ + + | | 2021-11-22 | [facility] | 18 | (missing) | (missing) | | (unavailable | 13:22 | [facility] ) [facility] | | | | + + + +------+ + + + + | Result panel 92 | + + + + + +-------+ + + | | 2021-11-22 | [facility] | 1.2 | (missing) | (missing) | | (unavailable | 13:22 | [facility] | | | | + + + +-------+ + + + + | Result panel 93 | + + + + + +--------+ + + | | 2021-11-22 | [facility] | 13.5 | (missing) | (missing) | | (unavailable | 13:22 | [facility] | | | | + + + +--------+ + + + + | Result panel 94 | + + + + + +--------+ + + | | 2021-11-22 | [facility] | 1.05 | (missing) | (missing) | | (unavailable | 13:22 | [facility] | | | | + + + +--------+ + + + + | Result panel 95 | + + + + + +--------+ + + | | 2021-11-22 | [facility] | 41.0 | (missing) | (missing) | | (unavailable | 13:22 | [facility] | | | | + + + +--------+ + + + + | Result panel 96 | + + + + + +------+ + + | | 2021-11-22 | [facility] | 18 | (missing) | (missing) | | (unavailable | 13:22 | [facility] | [facility] | | | | + + + +------+ + + + + | Result panel 97 | + + + + + +-------+ + + | | 2021-11-22 | [facility] | 1.2 | (missing) | (missing) | | (unavailable | 13:22 | [facility] | | | | + + + +-------+ + + + + | Result panel 98 | + + + + + +--------+ + + | | 2021-11-22 | [facility] | 13.5 | (missing) | (missing) | | (unavailable | 13:22 | [facility] | | | | + + + +--------+ + + + + | Result panel 99 | + + + + + +--------+ + + | | 2021-11-22 | [facility] | 1.05 | (missing) | (missing) | | (unavailable | 13:22 | [facility] | | | | + + + +--------+ + + + + | Result panel 100 | + + + + + +--------+ + + | | 2021-11-22 | [facility] | 41.0 | (missing) | (missing) | | (unavailable | 13:22 | [facility] ) | | [facility] | | | | + + + +--------+ + + + + | Result panel 101 | + + + + + +------+ + + | | 2021-11-22 | [facility] | 18 | (missing) | (missing) | | (unavailable | 13:22 | [facility] | [facility] | | | | + + + +------+ + + + + | Result panel 102 | + + + + + +-------+ + + | | 2021-11-22 | [facility] | 1.2 | (missing) | (missing) | | (unavailable | 13:22 | [facility] | | | | + + + +-------+ + + + + | Result panel 103 | + + + + + +--------+ + + | Prothrombin | 2021-11-22 | [facility] | 13.5 | (missing) | (missing) | | time (PT) | 13:22 | [facility] | | | | | in platelet | | Hospital | | | | | poor plasma | | | | | | | by | | | | | | | coagulation | | | | | | | assay | | | | | | + + + +--------+ + + + + | Result panel 104 | + + + + + +--------+ + + | INR in | 2021-11-22 | [facility] | 1.05 | (missing) | (missing) | | Platelet | 13:22 | [facility] | | | | | poor plasma | | Hospital | | | | | by | | | | | | | Coagulation | | | | | | | assay | | | | | | + + + +--------+ + + + + | Result panel 105 | + + + + + +--------+ + + | Activated | 2021-11-22 | [facility] | 41.0 | (missing) | (missing) | | partial | 13:22 | [facility] | | | | | thromboplast | | Hospital | | | | | in time | | | | | | | (aPTT) in | | | | | | | platelet | | | | | | | poor plasma | | | | | | | by | | | | | | | coagulation | | | | | | | assay | | | | | | + + + +--------+ + + + + | Result panel 106 | + + + + + +------+ + + | Serum or | 2021-11-22 | [facility] | 18 | (missing) | (missing) | | plasma | 13:22 | [facility] | | | | | creatine | | Hospital | | | | | kinase | | | | | | | measurement | | | | | | | (enzymatic | | | | | | | activity/vol | | | | | | | ume) | | | | | | + + + +------+ + + + + | Result panel 107 | + + + + + +-------+ + + | Serum or | 2021-11-22 | [facility] | 1.2 | (missing) | (missing) | | plasma | 13:22 | [facility] | | | | | lactate | | Hospital | | | | | measurement | | | | | | | (moles/volum | | | | | | | e) | | | | | | + + + +-------+ + + + + | Result panel 108 | + + + + + +--------+ + + | Prothrombin | 2021-11-22 | [facility] | 13.5 | (missing) | (missing) | | time (PT) | 13:22 | [facility] | | | | | in platelet | | Hospital | | | | | poor plasma | | | | | | | by | | | | | | | coagulation | | | | | | | assay | | | | | | + + + +--------+ + + + + | Result panel 109 | + + + + + +--------+ + + | INR in | 2021-11-22 | [facility] | 1.05 | (missing) | (missing) | | Platelet | 13:22 | [facility] | | | | | poor plasma | | Hospital | | | | | by | | | | | | | Coagulation | | | | | | | assay | | | | | | + + + +--------+ + + + + | Result panel 110 | + + + + + +--------+ + + | Activated | 2021-11-22 | [facility] | 41.0 | (missing) | (missing) | | partial | 13:22 | [facility] | | | | | thromboplast | | Hospital | | | | | in time | | | | | | | (aPTT) in | | | | | | | platelet | | | | | | | poor plasma | | | | | | | by | | | | | | | coagulation | | | | | | | assay | | | | | | + + + +--------+ + + + + | Result panel 111 | + + + + + + + + + | Bacterial | 2021-11-22 | [facility] | SEE | (missing) | (missing) | | blood | 14:14 | [facility] | SEPARATE | | | | culture | | Hospital | REPORT | | | + + + + + + + + + | Result panel 112 | + + + + + + + + + | Bacterial | 2021-11-22 | [facility] | SEE | (missing) | (missing) | | blood | 14:14 | [facility] | SEPARATE | | | | culture | | Hospital | REPORT | | | + + + + + + + + + | Result panel 113 | + + + + + + + + + | Bacterial | 2021-11-22 | [facility] | SEE | (missing) | (missing) | | blood | 14:14 | [facility] | SEPARATE | | | | culture | | Hospital | REPORT | | | + + + + + + + + + | Result panel 114 | + + + + + + + + + | Bacterial | 2021-11-22 | [facility] | SEE | (missing) | (missing) | | blood | 14:14 | [facility] | SEPARATE | | | | culture | | Hospital | REPORT | | | + + + + + + + + + | Result panel 115 | + + + + + + + + + | Respiratory | 2021-11-22 | [facility] | NEGATIVE | (missing) | (missing) | | specimen | 14:36 | [facility] | | | | | 2019 novel | | Hospital | | | | | coronavirus | | | | | | | RNA | | | | | | | detection | | | | | | + + + + + + + + + | Result panel 116 | + + + + + + + + + | | 2021-11-22 | [facility] | NEGATIVE | (missing) | (missing) | | (unavailable | 14:36 | [facility] | | [facility] | ) | | [facility] | | | | + + + + + + + + + | Result panel 117 | + + + + + + + + + | | 2021-11-22 | [facility] | NEGATIVE | (missing) | (missing) | | (unavailable | 14:36 | [facility] | | [facility] ) | | [facility] | | | | + + + + + + + + + | Result panel 118 | + + + + + + + + + | Influenza | 2021-11-22 | [facility] | NEGATIVE | (missing) | (missing) | | virus A RNA | 14:36 | [facility] | | | | | [Presence] | | Hospital | | | | | in | | | | | | | Respiratory | | | | | | | specimen by | | | | | | | KAREL | | | | | | | withprobe | | | | | | | detection | | | | | | + + + + + + + + + | Result panel 119 | + + + + + + + + + | | 2021-11-22 | [facility] | NEGATIVE | (missing) | (missing) | | (unavailable | 14:36 | [facility] | | [facility] | ) | | [facility] | | | | + + + + + + + + + | Result panel 120 | + + + + + + + + + | | 2021-11-22 | [facility] | NEGATIVE | (missing) | (missing) | | (unavailable | 14:36 | [facility] | | [facility] ) | | [facility] | | | | + + + + + + + + + | Result panel 121 | + + + + + + + + + | Influenza | 2021-11-22 | [facility] | NEGATIVE | (missing) | (missing) | | virus B RNA | 14:36 | [facility] | | | | | [Presence] | | Hospital | | | | | in | | | | | | | Respiratory | | | | | | | specimen by | | | | | | | [facility]AR[facility] | | | | | | | withprobe | | | | | | | detection | | | | | | + + + + + + + + + | Result panel 122 | + + + + + + + + + | Respiratory | 2021-11-22 | [facility] | NEGATIVE | (missing) | (missing) | | syncytial | 14:36 | [facility] | | | | | virus (RSV) | | Hospital | | | | | RNA | | | | | | | detection by | | | | | | | probe and | | | | | | | target | | | | | | | amplificatio | | | | | | | n method in | | | | | | | culture | | | | | | | isolate | | | | | | + + + + + + + + + | Result panel 123 | + + + + + +-------+ + + | Serum or | 2022-01-03 | [facility] | 1.6 | (missing) | (missing) | | plasma | 15:10 | [facility] | | | | | magnesium | | Hospital | | | | | measurement | | | | | | | (mass/volume | | | | | | | ) | | | | | | + + + +-------+ + + + + | Result panel 124 | + + + + + +--------+ + + | | 2022-01-03 | [facility] | 10.0 | (missing) | (missing) | | (unavailable | 15:10 | [facility] ) | | [facility] | | | | + + + +--------+ + + + + | Result panel 125 | + + + + + +--------+ + + | | 2022-01-03 | [facility] | 4.37 | (missing) | (missing) | | (unavailable | 15:10 | [facility] | | [facility] ) | | [facility] | | | | + + + +--------+ + + + + | Result panel 126 | + + + + + +--------+ + + | | 2022-01-03 | [facility] | 10.9 | (missing) | (missing) | | (unavailable | 15:10 | [facility] | [facility] ) | | [facility] | | | | + + + +--------+ + + + + | Result panel 127 | + + + + + +--------+ + + | | 2022-01-03 | [facility] | 33.9 | (missing) | (missing) | | (unavailable | 15:10 | [facility] ) | | [facility] | | | | + + + +--------+ + + + + | Result panel 128 | + + + + + +--------+ + + | | 2022-01-03 | [facility] | 77.7 | (missing) | (missing) | | (unavailable | 15:10 | [facility] ) | | [facility] | | | | + + + +--------+ + + + + | Result panel 129 | + + + + + +--------+ + + | | 2022-01-03 | [facility] | 24.8 | (missing) | (missing) | | (unavailable | 15:10 | [facility] | [facility] | | | | + + + +--------+ + + + + | Result panel 130 | + + + + + +--------+ + + | | 2022-01-03 | [facility] | 32.0 | (missing) | (missing) | | (unavailable | 15:10 | [facility] ) | | [facility] | | | | + + + +--------+ + + + + | Result panel 131 | + + + + + +--------+ + + | | 2022-01-03 | [facility] | 16.4 | (missing) | (missing) | | (unavailable | 15:10 | [facility] | | [facility] | | | | + + + +--------+ + + + + | Result panel 132 | + + + + + +-------+ + + | | 2022-01-03 | [facility] | 366 | (missing) | (missing) | | (unavailable | 15:10 | [facility] | | [facility] | | | | + + + +-------+ + + + + | Result panel 133 | + + + + + +--------+ + + | | 2022-01-03 | [facility] | 61.4 | (missing) | (missing) | | (unavailable | 15:10 | [facility] | | [facility] | | | | + + + +--------+ + + + + | Result panel 134 | + + + + + +--------+ + + | | 2022-01-03 | [facility] | 29.9 | (missing) | (missing) | | (unavailable | 15:10 | [facility] | | [facility] | | | | + + + +--------+ + + + + | Result panel 135 | + + + + + +-------+ + + | | 2022-01-03 | [facility] | 5.0 | (missing) | (missing) | | (unavailable | 15:10 | [facility] | | | | + + + +-------+ + + + + | Result panel 136 | + + + + + +-------+ + + | | 2022-01-03 | [facility] | 2.9 | (missing) | (missing) | | (unavailable | 15:10 | [facility] | | | | + + + +-------+ + + + + | Result panel 137 | + + + + + +-------+ + + | | 2022-01-03 | [facility] | 0.8 | (missing) | (missing) | | (unavailable | 15:10 | [facility] | | | | + + + +-------+ + + + + | Result panel 138 | + + + + + +-------+---------+ + | | 2022-01-03 | [facility] | 184 | mg/dL | (missing) | | (unavailable | 15:10 | [facility] | | | | + + + +-------+---------+ + + + | Result panel 139 | + + + + + +------+---------+ + | | 2022-01-03 | [facility] | 18 | mg/dL | (missing) | | (unavailable | 15:10 | [facility] | | | | + + + +------+---------+ + + + | Result panel 140 | + + + + + +--------+---------+ + | | 2022-01-03 | [facility] | 0.71 | mg/dL | (missing) | | (unavailable | 15:10 | [facility] | | | | + + + +--------+---------+ + + + | Result panel 141 | + + + + + +-------+ + + | | 2022-01-03 | [facility] | 108 | (missing) | (missing) | | (unavailable | 15:10 | [facility] | | | | + + + +-------+ + + + + | Result panel 142 | + + + + + +---------+ + + | | 2022-01-03 | [facility] | 25.35 | (missing) | (missing) | | (unavailable | 15:10 | [facility] | | | | + + + +---------+ + + + + | Result panel 143 | + + + + + +-------+ + + | | 2022-01-03 | [facility] | 136 | (missing) | (missing) | | (unavailable | 15:10 | [facility] | | | | + + + +-------+ + + + + | Result panel 144 | + + + + + +-------+ + + | | 2022-01-03 | [facility] | 5.0 | (missing) | (missing) | | (unavailable | 15:10 | [facility] | | | | + + + +-------+ + + + + | Result panel 145 | + + + + + +-------+ + + | | 2022-01-03 | [facility] | 101 | (missing) | (missing) | | (unavailable | 15:10 | [facility] | | | | + + + +-------+ + + + + | Result panel 146 | + + + + + +------+ + + | | 2022-01-03 | [facility] | 26 | (missing) | (missing) | | (unavailable | 15:10 | [facility] | | | | + + + +------+ + + + + | Result panel 147 | + + + + + +--------+ + + | | 2022-01-03 | [facility] | 14.0 | (missing) | (missing) | | (unavailable | 15:10 | [facility] | | | | + + + +--------+ + + + + | Result panel 148 | + + + + + +-------+---------+ + | | 2022-01-03 | [facility] | 8.7 | mg/dL | (missing) | | (unavailable | 15:10 | [facility] | | | | + + + +-------+---------+ + + + | Result panel 149 | + + + + + +-------+---------+ + | | 2022-01-03 | [facility] | 1.6 | mg/dL | (missing) | | (unavailable | 15:10 | [facility] | | | | + + + +-------+---------+ + + + | Result panel 150 | + + + + + +-------+ + + | | 2022-01-03 | [facility] | 8.2 | (missing) | (missing) | | (unavailable | 15:10 | [facility] | | | | + + + +-------+ + + + + | Result panel 151 | + + + + + +-------+ + + | | 2022-01-03 | [facility] | 2.7 | (missing) | (missing) | | (unavailable | 15:10 | [facility] | | | | + + + +-------+ + + + + | Result panel 152 | + + + + + +-------+ + + | | 2022-01-03 | [facility] | 5.5 | (missing) | (missing) | | (unavailable | 15:10 | [facility] | | | | + + + +-------+ + + + + | Result panel 153 | + + + + + +--------+ + + | | 2022-01-03 | [facility] | 0.49 | (missing) | (missing) | | (unavailable | 15:10 | [facility] | | | | + + + +--------+ + + + + | Result panel 154 | + + + + + +-------+ + + | | 2022-01-03 | [facility] | 0.9 | (missing) | (missing) | | (unavailable | 15:10 | [facility] | | | | + + + +-------+ + + + + | Result panel 155 | + + + + + +------+ + + | | 2022-01-03 | [facility] | 56 | (missing) | (missing) | | (unavailable | 15:10 | [facility] | | | | + + + +------+ + + + + | Result panel 156 | + + + + + +------+ + + | | 2022-01-03 | [facility] | 25 | (missing) | (missing) | | (unavailable | 15:10 | [facility] | | | | + + + +------+ + + + + | Result panel 157 | + + + + + +------+ + + | | 2022-01-03 | [facility] | 80 | (missing) | (missing) | | (unavailable | 15:10 | [facility] | | | | + + + +------+ + + + + | Result panel 158 | + + + + + +-------+ + + | Serum or | 2022-01-03 | [facility] | 8.9 | (missing) | (missing) | | plasma | 16:40 | [facility] | [facility] cardiac | | [facility] | | | | | troponin I | | | | | | | measurement | | | | | | | by high | | | | | | | senstivity | | | | | | | method | | | | | | | (mass/volume | | | | | | | ) | | | | | | + + + +-------+ + + + + | Result panel 159 | + + + + + +-------+ + + | | 2022-01-03 | [facility] | 8.9 | (missing) | (missing) | | (unavailable | 16:40 | [facility] | | | | + + + +-------+ + + + + | Result panel 160 | + + + + + + + + + | Color of | 2022-01-22 | [facility] | YELLOW | (missing) | (missing) | | Urine by | 19:30 | [facility] | | | | Auto | | [facility] | | | | + + + + + + + + + | Result panel 161 | + + + + + + + + + | Character | 2022-01-22 | [facility] | SL CLOUDY | (missing) | (missing) | | of Urine | 19:30 | [facility] | | | | + + + + + + + + + | Result panel 162 | + + + + + + + + + | Glucose | 2022-01-22 | [facility] | NEGATIVE | (missing) | (missing) | | [Presence] | 19:30 | [facility] | | | | | in Urine by | | Hospital | | | | | Test strip | | | | | | + + + + + + + + + | Result panel 163 | + + + + + + + + + | Urine total | 2022-01-22 | [facility] | NEGATIVE | (missing) | (missing) | | bilirubin | 19:30 | [facility] | | | | | detection by | | Hospital | | | | | test strip | | | | | | + + + + + + + + + | Result panel 164 | + + + + + + + + + | Urine | 2022-01-22 | [facility] | NEGATIVE | (missing) | (missing) | | ketones | 19:30 | [facility] | | | | | detection by | | Hospital | | | | | test strip | | | | | | + + + + + + + + + | Result panel 165 | + + + + + +---------+ + + | Specific | 2022-01-22 | [facility] | 1.020 | (missing) | (missing) | | gravity ur | 19:30 | [facility] | | | | | dipstick | | [facility] | | | | + + + +---------+ + + + + | Result panel 166 | + + + + + + + + + | Urine | 2022-01-22 | [facility] | MODERATE | (missing) | (missing) | | hemoglobin | 19:30 | [facility] | | | | | detection by | | Hospital | | | | | test strip | | | | | | + + + + + + + + + | Result panel 167 | + + + + + +-------+ + + | Urine pH | 2022-01-22 | [facility] | 6.0 | (missing) | (missing) | | measurement | 19:30 | [facility] | | | | | by test | | Hospital | | | | | strip | | | | | | + + + +-------+ + + + + | Result panel 168 | + + + + + +-------+ + + | Protein | 2022-01-22 | [facility] | 100 | (missing) | (missing) | | urine test | 19:30 | [facility] | | | | | strip | | [facility] | | | | + + + +-------+ + + + + | Result panel 169 | + + + + + + + + + | | 2022-01-22 | [facility] | NORMAL | (missing) | (missing) | | Urobilinogen | 19:30 | [facility] | | | [facility] | | | | | [Mass/volume | | | | | | | ] in Urine | | | | | | | by Test | | | | | | | strip | | | | | | + + + + + + + + + | Result panel 170 | + + + + + + + + + | Urine | 2022-01-22 | [facility] | NEGATIVE | (missing) | (missing) | | nitrite | 19:30 | [facility] | | | | | detection by | | Hospital | | | | | test strip | | | | | | + + + + + + + + + | Result panel 171 | + + + + + +---------+ + + | Urine | 2022-01-22 | [facility] | TRACE | (missing) | (missing) | | leukocyte | 19:30 | [facility] | | | | | esterase | | [facility] | | | | | detection by | | | | | | | dipstick | | | | | | + + + +---------+ + + + + | Result panel 172 | + + + + + +-------+ + + | Automated | 2022-01-22 | [facility] | 4-6 | (missing) | (missing) | | urine | 19:30 | [facility] | | | | | sediment | | [facility] | | | | | erythrocyte | | | | | | | count by | | | | | | | microscopy | | | | | | | (number/high | | | | | | | power | | | | | | | field) | | | | | | + + + +-------+ + + + + | Result panel 173 | + + + + + +--------+ + + | Automated | 2022-01-22 | [facility] | 7-11 | (missing) | (missing) | | urine | 19:30 | [facility] | | | | | sediment | | [facility] | | | | | leukocyte | | | | | | | count by | | | | | | | microscopy | | | | | | | (number/high | | | | | | | power | | | | | | | field) | | | | | | + + + +--------+ + + + + | Result panel 174 | + + + + + + + + + | Automated | 2022-01-22 | [facility] | SQUAMOUS 3+ | (missing) | (missing) | | urine | 19:30 | [facility] | | | | | sediment | | [facility] | | | | | epithelial | | | | | | | cell count | | | | | | | by | | | | | | | microscopy | | | | | | | (number/high | | | | | | | power | | | | | | | field) | | | | | | + + + + + + + + + | Result panel 175 | + + + + + + + + + | Crystal | 2022-01-22 | [facility] | NONE SEEN | (missing) | (missing) | | typing in | 19:30 | [facility] | | | | | urine | | [facility] | | | | | sediment by | | | | | | | light | | | | | | | microscopy | | | | | | + + + + + + + + + | Result panel 176 | + + + + + +------+ + + | Automated | 2022-01-22 | [facility] | 2+ | (missing) | (missing) | | urine | 19:30 | [facility] | | | | | sediment | | [facility] | | | | | bacteria | | | | | | | count by | | | | | | | microscopy | | | | | | | (number/high | | | | | | | power | | | | | | | field) | | | | | | + + + +------+ + + + + | Result panel 177 | + + + + + + + + + | Automated | 2022-01-22 | [facility] | NONE SEEN | (missing) | (missing) | | casts count | 19:30 | [facility] | | | | | in urine | | Hospital | | | | | sediment by | | | | | | | microscopy | | | | | | | low power | | | | | | | field | | | | | | | (number/area | | | | | | | ) | | | | | | + + + + + + + + + | Result panel 178 | + + + + + +------+ + + | Reflexive | 2022-01-22 | [facility] | No | (missing) | (missing) | | urine | 19:30 | [facility] | | | | | bacterial | | [facility] | | | | | culture | | | | | | + + + +------+ + + + + | Result panel 179 | + + + + + + + + + | Urinalysis | 2022-01-22 | [facility] | CLEAN CATCH | (missing) | (missing) | | specimen | 19:30 | [facility] | | | | | collection | | Hospital | | | | | method | | | | | | + + + + + + + + + | Result panel 180 | + + + + + + + + + | | 2022-01-22 | [facility] | YELLOW | (missing) | (missing) | | (unavailable | 19:30 | [facility] ) | | [facility] | | | | + + + + + + + + + | Result panel 181 | + + + + + + + + + | | 2022-01-22 | [facility] | SL CLOUDY | (missing) | (missing) | | (unavailable | 19:30 | [facility] | [facility] | | | | + + + + + + + + + | Result panel 182 | + + + + + + + + + | | 2022-01-22 | [facility] | NEGATIVE | (missing) | (missing) | | (unavailable | 19:30 | [facility] ) | | [facility] | | | | + + + + + + + + + | Result panel 183 | + + + + + + + + + | | 2022-01-22 | [facility] | NEGATIVE | (missing) | (missing) | | (unavailable | 19:30 | [facility] ) | | [facility] | | | | + + + + + + + + + | Result panel 184 | + + + + + + + + + | | 2022-01-22 | [facility] | NEGATIVE | (missing) | (missing) | | (unavailable | 19:30 | [facility] | | | | + + + + + + + + + | Result panel 185 | + + + + + +---------+ + + | | 2022-01-22 | [facility] | 1.020 | (missing) | (missing) | | (unavailable | 19:30 | [facility] | | | | + + + +---------+ + + + + | Result panel 186 | + + + + + + + + + | | 2022-01-22 | [facility] | MODERATE | (missing) | (missing) | | (unavailable | 19:30 | [facility] | | | | + + + + + + + + + | Result panel 187 | + + + + + +-------+ + + | | 2022-01-22 | [facility] | 6.0 | (missing) | (missing) | | (unavailable | 19:30 | [facility] | | | | + + + +-------+ + + + + | Result panel 188 | + + + + + +-------+ + + | | 2022-01-22 | [facility] | 100 | (missing) | (missing) | | (unavailable | 19:30 | [facility] | | | | + + + +-------+ + + + + | Result panel 189 | + + + + + + + + + | | 2022-01-22 | [facility] | NORMAL | (missing) | (missing) | | (unavailable | 19:30 | [facility] | | | | + + + + + + + + + | Result panel 190 | + + + + + + + + + | | 2022-01-22 | [facility] | NEGATIVE | (missing) | (missing) | | (unavailable | 19:30 | [facility] | | | | + + + + + + + + + | Result panel 191 | + + + + + +---------+ + + | | 2022-01-22 | [facility] | TRACE | (missing) | (missing) | | (unavailable | 19:30 | [facility] | | | | + + + +---------+ + + + + | Result panel 192 | + + + + + +-------+ + + | | 2022-01-22 | [facility] | 4-6 | (missing) | (missing) | | (unavailable | 19:30 | [facility] | | | | + + + +-------+ + + + + | Result panel 193 | + + + + + +--------+ + + | | 2022-01-22 | [facility] | 7-11 | (missing) | (missing) | | (unavailable | 19:30 | [facility] | | | | + + + +--------+ + + + + | Result panel 194 | + + + + + + + + + | | 2022-01-22 | [facility] | SQUAMOUS 3+ | (missing) | (missing) | | (unavailable | 19:30 | [facility] | | | | + + + + + + + + + | Result panel 195 | + + + + + + + + + | | 2022-01-22 | [facility] | NONE SEEN | (missing) | (missing) | | (unavailable | 19:30 | [facility] | | | | + + + + + + + + + | Result panel 196 | + + + + + +------+ + + | | 2022-01-22 | [facility] | 2+ | (missing) | (missing) | | (unavailable | 19:30 | [facility] | | | | + + + +------+ + + + + | Result panel 197 | + + + + + + + + + | | 2022-01-22 | [facility] | NONE SEEN | (missing) | (missing) | | (unavailable | 19:30 | [facility] | | | | + + + + + + + + + | Result panel 198 | + + + + + +------+ + + | | 2022-01-22 | [facility] | No | (missing) | (missing) | | (unavailable | 19:30 | [facility] | | | | + + + +------+ + + + + | Result panel 199 | + + + + + + + + + | | 2022-01-22 | [facility] | CLEAN CATCH | (missing) | (missing) | | (unavailable | 19:30 | [facility] | | | | + + + + + + + + + | Result panel 200 | + + + + + + + + + | | 2022-01-22 | [facility] | YELLOW | (missing) | (missing) | | (unavailable | 19:30 | [facility] | | | | + + + + + + + + + | Result panel 201 | + + + + + + + + + | | 2022-01-22 | [facility] | SL CLOUDY | (missing) | (missing) | | (unavailable | 19:30 | [facility] | | | | + + + + + + + + + | Result panel 202 | + + + + + + + + + | | 2022-01-22 | [facility] | NEGATIVE | (missing) | (missing) | | (unavailable | 19:30 | [facility] | | | | + + + + + + + + + | Result panel 203 | + + + + + + + + + | | 2022-01-22 | [facility] | NEGATIVE | (missing) | (missing) | | (unavailable | 19:30 | [facility] | | | | + + + + + + + + + | Result panel 204 | + + + + + + + + + | | 2022-01-22 | [facility] | NEGATIVE | (missing) | (missing) | | (unavailable | 19:30 | [facility] | | | | + + + + + + + + + | Result panel 205 | + + + + + +---------+ + + | | 2022-01-22 | [facility] | 1.020 | (missing) | (missing) | | (unavailable | 19:30 | [facility] | | | | + + + +---------+ + + + + | Result panel 206 | + + + + + + + + + | | 2022-01-22 | [facility] | MODERATE | (missing) | (missing) | | (unavailable | 19:30 | [facility] | | | | + + + + + + + + + | Result panel 207 | + + + + + +-------+ + + | | 2022-01-22 | [facility] | 6.0 | (missing) | (missing) | | (unavailable | 19:30 | [facility] | | | | + + + +-------+ + + + + | Result panel 208 | + + + + + +-------+ + + | | 2022-01-22 | [facility] | 100 | (missing) | (missing) | | (unavailable | 19:30 | [facility] | | | | + + + +-------+ + + + + | Result panel 209 | + + + + + + + + + | | 2022-01-22 | [facility] | NORMAL | (missing) | (missing) | | (unavailable | 19:30 | [facility] | | | | + + + + + + + + + | Result panel 210 | + + + + + + + + + | | 2022-01-22 | [facility] | NEGATIVE | (missing) | (missing) | | (unavailable | 19:30 | [facility] | | | | + + + + + + + + + | Result panel 211 | + + + + + +---------+ + + | | 2022-01-22 | [facility] | TRACE | (missing) | (missing) | | (unavailable | 19:30 | [facility] | | | | + + + +---------+ + + + + | Result panel 212 | + + + + + +-------+ + + | | 2022-01-22 | [facility] | 4-6 | (missing) | (missing) | | (unavailable | 19:30 | [facility] | | | | + + + +-------+ + + + + | Result panel 213 | + + + + + +--------+ + + | | 2022-01-22 | [facility] | 7-11 | (missing) | (missing) | | (unavailable | 19:30 | [facility] | | | | + + + +--------+ + + + + | Result panel 214 | + + + + + + + + + | | 2022-01-22 | [facility] | SQUAMOUS 3+ | (missing) | (missing) | | (unavailable | 19:30 | [facility] | | | | + + + + + + + + + | Result panel 215 | + + + + + + + + + | | 2022-01-22 | [facility] | NONE SEEN | (missing) | (missing) | | (unavailable | 19:30 | [facility] | | | | + + + + + + + + + | Result panel 216 | + + + + + +------+ + + | | 2022-01-22 | [facility] | 2+ | (missing) | (missing) | | (unavailable | 19:30 | [facility] | | | | + + + +------+ + + + + | Result panel 217 | + + + + + + + + + | | 2022-01-22 | [facility] | NONE SEEN | (missing) | (missing) | | (unavailable | 19:30 | [facility] | | | | + + + + + + + + + | Result panel 218 | + + + + + +------+ + + | | 2022-01-22 | [facility] | No | (missing) | (missing) | | (unavailable | 19:30 | [facility] | | | | + + + +------+ + + + + | Result panel 219 | + + + + + + + + + | | 2022-01-22 | [facility] | CLEAN CATCH | (missing) | (missing) | | (unavailable | 19:30 | [facility] | | | | + + + + + + + + + | Result panel 220 | + + + + + + + + + | | 2022-01-22 | [facility] | NEGATIVE | (missing) | (missing) | | (unavailable | 19:36 | [facility] | | | | + + + + + + + + + | Result panel 221 | + + + + + + + + + | | 2022-01-22 | [facility] | NEGATIVE | (missing) | (missing) | | (unavailable | 19:36 | [facility] | | | | + + + + + + + + + | Result panel 222 | + + + + + + + + + | | 2022-01-22 | [facility] | NEGATIVE | (missing) | (missing) | | (unavailable | 19:36 | [facility] | | | | + + + + + + + + + | Result panel 223 | + + + + + + + + + | | 2022-01-22 | [facility] | NEGATIVE | (missing) | (missing) | | (unavailable | 19:36 | [facility] | | | | + + + + + + + + + | Result panel 224 | + + + + + + + + + | Respiratory | 2022-01-22 | [facility] | NEGATIVE | (missing) | (missing) | | specimen | 19:36 | [facility] | | | | | 2019 novel | | [facility] | | | | | coronavirus | | | | | | | RNA | | | | | | | detection | | | | | | + + + + + + + + + | Result panel 225 | + + + + + + + + + | Influenza | 2022-01-22 | [facility] | NEGATIVE | (missing) | (missing) | | virus A RNA | 19:36 | [facility] | | | | | [Presence] | | [facility] | | | | | in | | | | | | | Respiratory | | | | | | | specimen by | | | | | | | [facility] | | | | | | | withprobe | | | | | | | detection | | | | | | + + + + + + + + + | Result panel 226 | + + + + + + + + + | Influenza | 2022-01-22 | [facility] | NEGATIVE | (missing) | (missing) | | virus B RNA | 19:36 | [facility] | | | | [Presence] | | [facility] | | | | | in | | | | | | | Respiratory | | | | | | | specimen by | | | | | | | [facility] | | | | | | | withprobe | | | | | | | detection | | | | | | + + + + + + + + + | Result panel 227 | + + + + + + + + + | Respiratory | 2022-01-22 | [facility] | NEGATIVE | (missing) | (missing) | | syncytial | 19:36 | [facility] | | | | | virus (RSV) | | Hospital | | | | | RNA | | | | | | | detection by | | | | | | | probe and | | | | | | | target | | | | | | | amplificatio | | | | | | | n method in | | | | | | | culture | | | | | | | isolate | | | | | | + + + + + + + + + | Result panel 228 | + + + + + + + + + | | 2022-01-22 | [facility] | NEGATIVE | (missing) | (missing) | | (unavailable | 19:36 | [facility] ) | | [facility] | | | | + + + + + + + + + | Result panel 229 | + + + + + + + + + | | 2022-01-22 | [facility] | NEGATIVE | (missing) | (missing) | | (unavailable | 19:36 | [facility] ) | | [facility] | | | | + + + + + + + + + | Result panel 230 | + + + + + + + + + | | 2022-01-22 | [facility] | NEGATIVE | (missing) | (missing) | | (unavailable | 19:36 | [facility] | [facility] ) | | [facility] | | | | + + + + + + + + + | Result panel 231 | + + + + + + + + + | | 2022-01-22 | [facility] | NEGATIVE | (missing) | (missing) | | (unavailable | 19:36 | [facility] ) | | [facility] | | | | + + + + + + + + + | Result panel 232 | + + + + + + + + + | | 2022-01-22 | [facility] | NEGATIVE | (missing) | (missing) | | (unavailable | 19:36 | [facility] ) | | [facility] | | | | + + + + + + + + + | Result panel 233 | + + + + + + + + + | | 2022-01-22 | [facility] | NEGATIVE | (missing) | (missing) | | (unavailable | 19:36 | [facility] ) | | [facility] | | | | + + + + + + + + + | Result panel 234 | + + + + + + + + + | | 2022-01-22 | [facility] | NEGATIVE | (missing) | (missing) | | (unavailable | 19:36 | [facility] | | [facility] ) | | [facility] | | | | + + + + + + + + + | Result panel 235 | + + + + + + + + + | | 2022-01-22 | [facility] | NEGATIVE | (missing) | (missing) | | (unavailable | 19:36 | [facility] | | [facility] ) | | [facility] | | | | + + + + + + + + + | Result panel 236 | + + + + + + + + + | Respiratory | 2022-01-22 | [facility] | NEGATIVE | (missing) | (missing) | | specimen | 19:36 | [facility] | | | | | 2019 novel | | Hospital | | | | | coronavirus | | | | | | | RNA | | | | | | | detection | | | | | | + + + + + + + + + | Result panel 237 | + + + + + + + + + | Influenza | 2022-01-22 | [facility] | NEGATIVE | (missing) | (missing) | | virus A RNA | 19:36 | [facility] | | | | | [Presence] | | Hospital | | | | | in | | | | | | | Respiratory | | | | | | | specimen by | | | | | | | [facility] | | | | | | | withprobe | | | | | | | detection | | | | | | + + + + + + + + + | Result panel 238 | + + + + + + + + + | Influenza | 2022-01-22 | [facility] | NEGATIVE | (missing) | (missing) | | virus B RNA | 19:36 | [facility] | | | | [Presence] | | Hospital | | | | | in | | | | | | | Respiratory | | | | | | | specimen by | | | | | | | [facility] | | | | | | | withprobe | | | | | | | detection | | | | | | + + + + + + + + + | Result panel 239 | + + + + + + + + + | Respiratory | 2022-01-22 | [facility] | NEGATIVE | (missing) | (missing) | | syncytial | 19:36 | [facility] | | | | | virus (RSV) | | Hospital | | | | | RNA | | | | | | | detection by | | | | | | | probe and | | | | | | | target | | | | | | | amplificatio | | | | | | | n method in | | | | | | | culture | | | | | | | isolate | | | | | | + + + + + + + + + | Result panel 240 | + + + + + +--------+ + + | | 2022-01-24 | [facility] | 10.9 | (missing) | (missing) | | (unavailable | 15:21 | [facility] | | | | + + + +--------+ + + + + | Result panel 241 | + + + + + +--------+ + + | | 2022-01-24 | [facility] | 33.8 | (missing) | (missing) | | (unavailable | 15:21 | [facility] | | | | + + + +--------+ + + + + | Result panel 242 | + + + + + +--------+ + + | | 2022-01-24 | [facility] | 76.7 | (missing) | (missing) | | (unavailable | 15:21 | [facility] | [facility] | | | | + + + +--------+ + + + + | Result panel 243 | + + + + + +--------+ + + | | 2022-01-24 | [facility] | 24.8 | (missing) | (missing) | | (unavailable | 15:21 | [facility] | | | | + + + +--------+ + + + + | Result panel 244 | + + + + + +--------+ + + | | 2022-01-24 | [facility] | 32.3 | (missing) | (missing) | | (unavailable | 15:21 | [facility] | | | | + + + +--------+ + + + + | Result panel 245 | + + + + + +--------+ + + | | 2022-01-24 | [facility] | 16.5 | (missing) | (missing) | | (unavailable | 15:21 | [facility] | [facility] | | | | + + + +--------+ + + + + | Result panel 246 | + + + + + +-------+ + + | | 2022-01-24 | [facility] | 349 | (missing) | (missing) | | (unavailable | 15:21 | [facility] | [facility] | | | | + + + +-------+ + + + + | Result panel 247 | + + + + + +--------+ + + | | 2022-01-24 | [facility] | 65.5 | (missing) | (missing) | | (unavailable | 15:21 | [facility] | | | | + + + +--------+ + + + + | Result panel 248 | + + + + + +--------+ + + | | 2022-01-24 | [facility] | 27.0 | (missing) | (missing) | | (unavailable | 15:21 [facility] | | | | + + + +--------+ + + + + | Result panel 249 | + + + + + +-------+ + + | | 2022-01-24 | [facility] | 4.2 | (missing) | (missing) | | (unavailable | 15:21 [facility] | | | | + + + +-------+ + + + + | Result panel 250 | + + + + + +-------+ + + | | 2022-01-24 | [facility] | 2.7 | (missing) | (missing) | | (unavailable | 15:21 [facility] | | | | + + + +-------+ + + + + | Result panel 251 | + + + + + +-------+ + + | | 2022-01-24 | [facility] | 0.6 | (missing) | (missing) | | (unavailable | 15:21 [facility] | | | | + + + +-------+ + + + + | Result panel 252 | + + + + + +-------+---------+ + | | 2022-01-24 | [facility] | 274 | mg/dL | (missing) | | (unavailable | 15:21 | [facility] | | | | + + + +-------+---------+ + + + | Result panel 253 | + + + + + +------+---------+ + | | 2022-01-24 | [facility] | 17 | mg/dL | (missing) | | (unavailable | 15:21 [facility] | | | | + + + +------+---------+ + + + | Result panel 254 | + + + + + +--------+---------+ + | | 2022-01-24 | [facility] | 0.81 | mg/dL | (missing) | | (unavailable | 15:21 [facility] | | | | + + + +--------+---------+ + + + | Result panel 255 | + + + + + +------+ + + | | 2022-01-24 | [facility] | 92 | (missing) | (missing) | | (unavailable | 15:21 [facility] | | | | + + + +------+ + + + + | Result panel 256 | + + + + + +---------+ + + | | 2022-01-24 | [facility] | 20.98 | (missing) | (missing) | | (unavailable | 15:21 | [facility] | | | | + + + +---------+ + + + + | Result panel 257 | + + + + + +-------+ + + | | 2022-01-24 | [facility] | 137 | (missing) | (missing) | | (unavailable | 15:21 [facility] | | | | + + + +-------+ + + + + | Result panel 258 | + + + + + +-------+ + + | | 2022-01-24 | [facility] | 4.5 | (missing) | (missing) | | (unavailable | 15:21 | [facility] | | | | + + + +-------+ + + + + | Result panel 259 | + + + + + +-------+ + + | | 2022-01-24 | [facility] | 103 | (missing) | (missing) | | (unavailable | 15:21 | [facility] | | | | + + + +-------+ + + + + | Result panel 260 | + + + + + +------+ + + | | 2022-01-24 | [facility] | 25 | (missing) | (missing) | | (unavailable | 15:21 | [facility] | | | | + + + +------+ + + + + | Result panel 261 | + + + + + +--------+ + + | | 2022-01-24 | [facility] | 13.5 | (missing) | (missing) | | (unavailable | 15:21 | [facility] | | | | + + + +--------+ + + + + | Result panel 262 | + + + + + +-------+---------+ + | | 2022-01-24 | [facility] | 8.6 | mg/dL | (missing) | | (unavailable | 15:21 | [facility] | | | | + + + +-------+---------+ + + + | Result panel 263 | + + + + + +-------+---------+ + | | 2022-01-24 | [facility] | 1.6 | mg/dL | (missing) | | (unavailable | 15:21 | [facility] | | | | + + + +-------+---------+ + + + | Result panel 264 | + + + + + +-------+ + + | | 2022-01-24 | [facility] | 7.6 | (missing) | (missing) | | (unavailable | 15:21 | [facility] | | | | + + + +-------+ + + + + | Result panel 265 | + + + + + +-------+ + + | | 2022-01-24 | [facility] | 2.8 | (missing) | (missing) | | (unavailable | 15:21 | [facility] | | | | + + + +-------+ + + + + | Result panel 266 | + + + + + +-------+ + + | | 2022-01-24 | [facility] | 4.8 | (missing) | (missing) | | (unavailable | 15:21 [facility] | | | | + + + +-------+ + + + + | Result panel 267 | + + + + + +--------+ + + | | 2022-01-24 | [facility] | 0.58 | (missing) | (missing) | | (unavailable | 15:21 [facility] | | | | + + + +--------+ + + + + | Result panel 268 | + + + + + +-------+ + + | | 2022-01-24 | [facility] | 0.9 | (missing) | (missing) | | (unavailable | 15:21 | [facility] | | | + + + +-------+ + + + + | Result panel 269 | + + + + + +------+ + + | | 2022-01-24 | [facility] | 19 | (missing) | (missing) | | (unavailable | 15:21 | [facility] | | | + + + +------+ + + + + | Result panel 270 | + + + + + +------+ + + | | 2022-01-24 | [facility] | 18 | (missing) | (missing) | | (unavailable | 15:21 | [facility] | | | + + + +------+ + + + + | Result panel 271 | + + + + + +------+ + + | | 2022-01-24 | [facility] | 78 | (missing) | (missing) | | (unavailable | 15:21 | [facility] | | | | + + + +------+ + + + + | Result panel 272 | + + + + + + + + + | | 2022-01-24 | [facility] | < 0.0 mg/dL | (missing) | (missing) | | (unavailable | 15:21 | [facility] | | | + + + + + + + + + | Result panel 273 | + + + + + +-------+ + + | | 2022-01-24 | [facility] | 8.6 | (missing) | (missing) | | (unavailable | 15:21 | [facility] | | | + + + +-------+ + + + + | Result panel 274 | + + + + + +--------+ + + | | 2022-01-24 | [facility] | 4.41 | (missing) | (missing) | | (unavailable | 15:21 | [facility] | | | | + + + +--------+ + + + + | Result panel 275 | + + + + + +--------+ + + | | 2022-01-24 | [facility] | 10.9 | (missing) | (missing) | | (unavailable | 15:21 | [facility] | | | | + + + +--------+ + + + + | Result panel 276 | + + + + + +--------+ + + | | 2022-01-24 | [facility] | 33.8 | (missing) | (missing) | | (unavailable | 15:21 | [facility] | | | | + + + +--------+ + + + + | Result panel 277 | + + + + + +--------+ + + | | 2022-01-24 | [facility] | 76.7 | (missing) | (missing) | | (unavailable | 15:21 | [facility] | | | + + + +--------+ + + + + | Result panel 278 | + + + + + +--------+ + + | | 2022-01-24 | [facility] | 24.8 | (missing) | (missing) | | (unavailable | 15:21 | [facility] | | | | + + + +--------+ + + + + | Result panel 279 | + + + + + +--------+ + + | | 2022-01-24 | [facility] | 32.3 | (missing) | (missing) | | (unavailable | 15:21 | [facility] | | | | + + + +--------+ + + + + | Result panel 280 | + + + + + +--------+ + + | | 2022-01-24 | [facility] | 16.5 | (missing) | (missing) | | (unavailable | 15:21 | [facility] | | | | + + + +--------+ + + + + | Result panel 281 | + + + + + +-------+ + + | | 2022-01-24 | [facility] | 349 | (missing) | (missing) | | (unavailable | 15:21 | [facility] | | | | + + + +-------+ + + + + | Result panel 282 | + + + + + +--------+ + + | | 2022-01-24 | [facility] | 65.5 | (missing) | (missing) | | (unavailable | 15:21 | [facility] | | | | + + + +--------+ + + + + | Result panel 283 | + + + + + +--------+ + + | | 2022-01-24 | [facility] | 27.0 | (missing) | (missing) | | (unavailable | 15:21 | [facility] | | | | + + + +--------+ + + + + | Result panel 284 | + + + + + +-------+ + + | | 2022-01-24 | [facility] | 4.2 | (missing) | (missing) | | (unavailable | 15:21 | [facility] | | | | + + + +-------+ + + + + | Result panel 285 | + + + + + +-------+ + + | | 2022-01-24 | [facility] | 2.7 | (missing) | (missing) | | (unavailable | 15:21 | [facility] | | | | + + + +-------+ + + + + | Result panel 286 | + + + + + +-------+ + + | | 2022-01-24 | [facility] | 0.6 | (missing) | (missing) | | (unavailable | 15:21 | [facility] | | | | + + + +-------+ + + + + | Result panel 287 | + + + + + +-------+---------+ + | | 2022-01-24 | [facility] | 274 | mg/dL | (missing) | | (unavailable | 15:21 | [facility] | | | | + + + +-------+---------+ + + + | Result panel 288 | + + + + + +------+---------+ + | | 2022-01-24 | [facility] | 17 | mg/dL | (missing) | | (unavailable | 15:21 | [facility] | | | | + + + +------+---------+ + + + | Result panel 289 | + + + + + +--------+---------+ + | | 2022-01-24 | [facility] | 0.81 | mg/dL | (missing) | | (unavailable | 15:21 | [facility] | | | | + + + +--------+---------+ + + + | Result panel 290 | + + + + + +------+ + + | | 2022-01-24 | [facility] | 92 | (missing) | (missing) | | (unavailable | 15:21 | [facility] | | | | + + + +------+ + + + + | Result panel 291 | + + + + + +---------+ + + | | 2022-01-24 | [facility] | 20.98 | (missing) | (missing) | | (unavailable | 15:21 | [facility] | | | | + + + +---------+ + + + + | Result panel 292 | + + + + + +-------+ + + | | 2022-01-24 | [facility] | 137 | (missing) | (missing) | | (unavailable | 15:21 | [facility] | | | | + + + +-------+ + + + + | Result panel 293 | + + + + + +-------+ + + | | 2022-01-24 | [facility] | 4.5 | (missing) | (missing) | | (unavailable | 15:21 | [facility] | | | | + + + +-------+ + + + + | Result panel 294 | + + + + + +-------+ + + | | 2022-01-24 | [facility] | 103 | (missing) | (missing) | | (unavailable | 15:21 | [facility] | | | | + + + +-------+ + + + + | Result panel 295 | + + + + + +------+ + + | | 2022-01-24 | [facility] | 25 | (missing) | (missing) | | (unavailable | 15:21 | [facility] | | | | + + + +------+ + + + + | Result panel 296 | + + + + + +--------+ + + | | 2022-01-24 | [facility] | 13.5 | (missing) | (missing) | | (unavailable | 15:21 | [facility] | | | | + + + +--------+ + + + + | Result panel 297 | + + + + + +-------+---------+ + | | 2022-01-24 | [facility] | 8.6 | mg/dL | (missing) | | (unavailable | 15:21 | [facility] | | | | + + + +-------+---------+ + + + | Result panel 298 | + + + + + +-------+---------+ + | | 2022-01-24 | [facility] | 1.6 | mg/dL | (missing) | | (unavailable | 15:21 | [facility] | | | | + + + +-------+---------+ + + + | Result panel 299 | + + + + + +-------+ + + | | 2022-01-24 | [facility] | 7.6 | (missing) | (missing) | | (unavailable | 15:21 | [facility] | | | | + + + +-------+ + + + + | Result panel 300 | + + + + + +-------+ + + | | 2022-01-24 | [facility] | 2.8 | (missing) | (missing) | | (unavailable | 15:21 | [facility] | | | | + + + +-------+ + + + + | Result panel 301 | + + + + + +-------+ + + | | 2022-01-24 | [facility] | 4.8 | (missing) | (missing) | | (unavailable | 15:21 | [facility] | | | | + + + +-------+ + + + + | Result panel 302 | + + + + + +--------+ + + | | 2022-01-24 | [facility] | 0.58 | (missing) | (missing) | | (unavailable | 15:21 | [facility] | | | | + + + +--------+ + + + + | Result panel 303 | + + + + + +-------+ + + | | 2022-01-24 | [facility] | 0.9 | (missing) | (missing) | | (unavailable | 15:21 | [facility] | | | | + + + +-------+ + + + + | Result panel 304 | + + + + + +------+ + + | | 2022-01-24 | [facility] | 19 | (missing) | (missing) | | (unavailable | 15:21 | [facility] | | | | + + + +------+ + + + + | Result panel 305 | + + + + + +------+ + + | | 2022-01-24 | [facility] | 18 | (missing) | (missing) | | (unavailable | 15:21 | [facility] | | | | + + + +------+ + + + + | Result panel 306 | + + + + + +------+ + + | | 2022-01-24 | [facility] | 78 | (missing) | (missing) | | (unavailable | 15:21 | [facility] | | | | + + + +------+ + + + + | Result panel 307 | + + + + + + + + + | | 2022-01-24 | [facility] | < 0.0 mg/dL | (missing) | (missing) | | (unavailable | 15:21 | [facility] | | | | + + + + + + + + + | Result panel 308 | + + + + + +-------+ + + | | 2022-01-24 | [facility] | 8.6 | (missing) | (missing) | | (unavailable | 15:21 | [facility] | | | | + + + +-------+ + + + + | Result panel 309 | + + + + + +--------+ + + | | 2022-01-24 | [facility] | 4.41 | (missing) | (missing) | | (unavailable | 15:21 | [facility] | | | | + + + +--------+ + + + + | Result panel 310 | + + + + + +--------+ + + | | 2022-01-24 | [facility] | 10.9 | (missing) | (missing) | | (unavailable | 15:21 | [facility] | | | | + + + +--------+ + + + + | Result panel 311 | + + + + + +--------+ + + | | 2022-01-24 | [facility] | 33.8 | (missing) | (missing) | | (unavailable | 15:21 | [facility] | | | | + + + +--------+ + + + + | Result panel 312 | + + + + + +--------+ + + | | 2022-01-24 | [facility] | 76.7 | (missing) | (missing) | | (unavailable | 15:21 | [facility] | | | | + + + +--------+ + + + + | Result panel 313 | + + + + + +--------+ + + | | 2022-01-24 | [facility] | 24.8 | (missing) | (missing) | | (unavailable | 15:21 | [facility] | | | | + + + +--------+ + + + + | Result panel 314 | + + + + + +--------+ + + | | 2022-01-24 | [facility] | 32.3 | (missing) | (missing) | | (unavailable | 15:21 | [facility] | | | | + + + +--------+ + + + + | Result panel 315 | + + + + + +--------+ + + | | 2022-01-24 | [facility] | 16.5 | (missing) | (missing) | | (unavailable | 15:21 | [facility] | | | | + + + +--------+ + + + + | Result panel 316 | + + + + + +-------+ + + | | 2022-01-24 | [facility] | 349 | (missing) | (missing) | | (unavailable | 15:21 | [facility] | | | | + + + +-------+ + + + + | Result panel 317 | + + + + + +--------+ + + | | 2022-01-24 | [facility] | 65.5 | (missing) | (missing) | | (unavailable | 15:21 | [facility] | | | | + + + +--------+ + + + + | Result panel 318 | + + + + + +--------+ + + | | 2022-01-24 | [facility] | 27.0 | (missing) | (missing) | | (unavailable | 15:21 | [facility] | | | | + + + +--------+ + + + + | Result panel 319 | + + + + + +-------+ + + | | 2022-01-24 | [facility] | 4.2 | (missing) | (missing) | | (unavailable | 15:21 | [facility] | | | | + + + +-------+ + + + + | Result panel 320 | + + + + + +-------+ + + | | 2022-01-24 | [facility] | 2.7 | (missing) | (missing) | | (unavailable | 15:21 | [facility] | | | | + + + +-------+ + + + + | Result panel 321 | + + + + + +-------+ + + | | 2022-01-24 | [facility] | 0.6 | (missing) | (missing) | | (unavailable | 15:21 | [facility] | | | | + + + +-------+ + + + + | Result panel 322 | + + + + + +-------+---------+ + | | 2022-01-24 | [facility] | 274 | mg/dL | (missing) | | (unavailable | 15:21 | [facility] | | | | + + + +-------+---------+ + + + | Result panel 323 | + + + + + +------+---------+ + | | 2022-01-24 | [facility] | 17 | mg/dL | (missing) | | (unavailable | 15:21 | [facility] | | | | + + + +------+---------+ + + + | Result panel 324 | + + + + + +--------+---------+ + | | 2022-01-24 | [facility] | 0.81 | mg/dL | (missing) | | (unavailable | 15:21 | [facility] | | | | + + + +--------+---------+ + + + | Result panel 325 | + + + + + +------+ + + | | 2022-01-24 | [facility] | 92 | (missing) | (missing) | | (unavailable | 15:21 | [facility] | | | | + + + +------+ + + + + | Result panel 326 | + + + + + +---------+ + + | | 2022-01-24 | [facility] | 20.98 | (missing) | (missing) | | (unavailable | 15:21 | [facility] | | | | + + + +---------+ + + + + | Result panel 327 | + + + + + +-------+ + + | | 2022-01-24 | [facility] | 137 | (missing) | (missing) | | (unavailable | 15:21 | [facility] | | | | + + + +-------+ + + + + | Result panel 328 | + + + + + +-------+ + + | | 2022-01-24 | [facility] | 4.5 | (missing) | (missing) | | (unavailable | 15:21 | [facility] | | | | + + + +-------+ + + + + | Result panel 329 | + + + + + +-------+ + + | | 2022-01-24 | [facility] | 103 | (missing) | (missing) | | (unavailable | 15:21 | [facility] | | | | + + + +-------+ + + + + | Result panel 330 | + + + + + +------+ + + | | 2022-01-24 | [facility] | 25 | (missing) | (missing) | | (unavailable | 15:21 | [facility] | | | | + + + +------+ + + + + | Result panel 331 | + + + + + +--------+ + + | | 2022-01-24 | [facility] | 13.5 | (missing) | (missing) | | (unavailable | 15:21 | [facility] | | | | + + + +--------+ + + + + | Result panel 332 | + + + + + +-------+---------+ + | | 2022-01-24 | [facility] | 8.6 | mg/dL | (missing) | | (unavailable | 15:21 | [facility] | | | | + + + +-------+---------+ + + + | Result panel 333 | + + + + + +-------+---------+ + | | 2022-01-24 | [facility] | 1.6 | mg/dL | (missing) | | (unavailable | 15:21 | [facility] | | | | + + + +-------+---------+ + + + | Result panel 334 | + + + + + +-------+ + + | | 2022-01-24 | [facility] | 7.6 | (missing) | (missing) | | (unavailable | 15:21 | [facility] | | | | + + + +-------+ + + + + | Result panel 335 | + + + + + +-------+ + + | | 2022-01-24 | [facility] | 2.8 | (missing) | (missing) | | (unavailable | 15:21 | [facility] | | | | + + + +-------+ + + + + | Result panel 336 | + + + + + +-------+ + + | | 2022-01-24 | [facility] | 4.8 | (missing) | (missing) | | (unavailable | 15:21 [facility] | | | | + + + +-------+ + + + + | Result panel 337 | + + + + + +--------+ + + | | 2022-01-24 | [facility] | 0.58 | (missing) | (missing) | | (unavailable | 15:21 | [facility] | | | | + + + +--------+ + + + + | Result panel 338 | + + + + + +-------+ + + | | 2022-01-24 | [facility] | 0.9 | (missing) | (missing) | | (unavailable | 15:21 | [facility] | | | | + + + +-------+ + + + + | Result panel 339 | + + + + + +------+ + + | | 2022-01-24 | [facility] | 19 | (missing) | (missing) | | (unavailable | 15:21 | [facility] | | | | + + + +------+ + + + + | Result panel 340 | + + + + + +------+ + + | | 2022-01-24 | [facility] | 18 | (missing) | (missing) | | (unavailable | 15:21 | [facility] | | | | + + + +------+ + + + + | Result panel 341 | + + + + + +------+ + + | | 2022-01-24 | [facility] | 78 | (missing) | (missing) | | (unavailable | 15:21 | [facility] | | | | + + + +------+ + + + + | Result panel 342 | + + + + + + + + + | | 2022-01-24 | [facility] | < 0.0 mg/dL | (missing) | (missing) | | (unavailable | 15:21 | [facility] | | | | + + + + + + + + + | Result panel 343 | + + + + + +-------+ + + | Blood | 2022-01-24 | [facility] | 8.6 | (missing) | (missing) | | leukocytes | 15:21 | [facility] | | | | automated | | [facility] | | | | | count | | | | | | | (number/volu | | | | | | | me) | | | | | | + + + +-------+ + + + + | Result panel 344 | + + + + + +--------+ + + | Blood | 2022-01-24 | [facility] | 4.41 | (missing) | (missing) | | erythrocytes | 15:21 | [facility] | | | | | count | | | | | | | (number/volu | | | | | | | me) | | | | | | + + + +--------+ + + + + | Result panel 345 | + + + + + +--------+ + + | Blood | 2022-01-24 | [facility] | 10.9 | (missing) | (missing) | | hemoglobin | 15:21 | [facility] | | | | measurement | | [facility] | | | | | (mass/volume | | | | | | | ) | | | | | | + + + +--------+ + + + + | Result panel 346 | + + + + + +--------+ + + | Automated | 2022-01-24 | [facility] | 33.8 | (missing) | (missing) | | blood | 15:21 | [facility] | | | | hematocrit | | [facility] | | | | + + + +--------+ + + + + | Result panel 347 | + + + + + +--------+ + + | Automated | 2022-01-24 | [facility] | 76.7 | (missing) | (missing) | | erythrocyte | 15:21 | [facility] | | | | | mean | | [facility] | | | | | corpuscular | | | | | | | volume | | | | | | + + + +--------+ + + + + | Result panel 348 | + + + + + +--------+ + + | Automated | 2022-01-24 | [facility] | 24.8 | (missing) | (missing) | | erythrocyte | 15:21 | [facility] | | | | mean | | [facility] | | | | | corpuscular | | | | | | | hemoglobin | | | | | | | (mass per | | | | | | | erythrocyte) | | | | | | | | | | | | | + + + +--------+ + + + + | Result panel 349 | + + + + + +--------+ + + | Automated | 2022-01-24 | [facility] | 32.3 | (missing) | (missing) | | erythrocyte | 15:21 | [facility] | | | | mean | | [facility] | | | | | corpuscular | | | | | | | hemoglobin | | | | | | | concentratio | | | | | | | n | | | | | | | measurement | | | | | | | (mass/volume | | | | | | | ) | | | | | | + + + +--------+ + + + + | Result panel 350 | + + + + + +--------+ + + | Automated | 2022-01-24 | [facility] | 16.5 | (missing) | (missing) | | erythrocyte | 15:21 | [facility] | | | | | distribution | | [facility] | | | | | width | | | | | | + + + +--------+ + + + + | Result panel 351 | + + + + + +-------+ + + | Automated | 2022-01-24 | [facility] | 349 | (missing) | (missing) | | blood | 15:21 | [facility] | | | | platelet | | [facility] | | | | | count | | | | | | | (count/volum | | | | | | | e) | | | | | | + + + +-------+ + + + + | Result panel 352 | + + + + + +--------+ + + | Automated | 2022-01-24 | [facility] | 65.5 | (missing) | (missing) | | blood | 15:21 | [facility] | | | | | neutrophil | | [facility] | | | | | count as | | | | | | | percentage | | | | | | | of total | | | | | | | leukocytes | | | | | | + + + +--------+ + + + + | Result panel 353 | + + + + + +--------+ + + | Automated | 2022-01-24 | [facility] | 27.0 | (missing) | (missing) | | blood | 15:21 | [facility] | | | | lymphocyte | | [facility] | | | | | count as | | | | | | | percentage | | | | | | | ot total | | | | | | | leukocytes | | | | | | + + + +--------+ + + + + | Result panel 354 | + + + + + +-------+ + + | Automated | 2022-01-24 | [facility] | 4.2 | (missing) | (missing) | | blood | 15:21 | [facility] | | | | | monocyte | | [facility] | | | | | count as | | | | | | | percentage | | | | | | | of total | | | | | | | leukocytes | | | | | | + + + +-------+ + + + + | Result panel 355 | + + + + + +-------+ + + | Automated | 2022-01-24 | [facility] | 2.7 | (missing) | (missing) | | blood | 15:21 | [facility] | | | | | eosinophil | | [facility] | | | | | count as | | | | | | | percentage | | | | | | | of total | | | | | | | leukocytes | | | | | | + + + +-------+ + + + + | Result panel 356 | + + + + + +-------+ + + | Automated | 2022-01-24 | [facility] | 0.6 | (missing) | (missing) | | blood | 15:21 | [facility] | | | | | basophil | | [facility] | | | | | count as | | | | | | | percentage | | | | | | | of total | | | | | | | leukocytes | | | | | | + + + +-------+ + + + + | Result panel 357 | + + + + + +-------+ + + | Serum or | 2022-01-24 | [facility] | 274 | (missing) | (missing) | | plasma | 15:21 | [facility] | | | | | glucose | | [facility] | | | | | measurement | | | | | | | (mass/volume | | | | | | | ) | | | | | | + + + +-------+ + + + + | Result panel 358 | + + + + + +------+ + + | Serum or | 2022-01-24 | [facility] | 17 | (missing) | (missing) | | plasma urea | 15:21 | [facility] | | | | nitrogen | | [facility] | | | | | measurement | | | | | | | (mass/volume | | | | | | | ) | | | | | | + + + +------+ + + + + | Result panel 359 | + + + + + +--------+ + + | Serum or | 2022-01-24 | [facility] | 0.81 | (missing) | (missing) | | plasma | 15:21 | [facility] | | | | creatinine | | [facility] | | | | | measurement | | | | | | | (mass/volume | | | | | | | ) | | | | | | + + + +--------+ + + + + | Result panel 360 | + + + + + +------+ + + | Glomerular | 2022-01-24 | [facility] | 92 | (missing) | (missing) | | filtration | 15:21 | [facility] | | | | | rate/1.73 sq | | Hospital | | | | | M.predicted | | | | | | | [Volume | | | | | | | Rate/Area] | | | | | | | inSerum, | | | | | | | Plasma or | | | | | | | Blood by | | | | | | | Creatinine-b | | | | | | | ased formula | | | | | | | (CKD-EPI | | | | | | | 2020) | | | | | | + + + +------+ + + + + | Result panel 361 | + + + + + +---------+ + + | Serum or | 2022-01-24 | [facility] | 20.98 | (missing) | (missing) | | plasma urea | 15:21 | [facility] | | | | | nitrogen/cre | | Hospital | | | | | atinine mass | | | | | | | ratio | | | | | | + + + +---------+ + + + + | Result panel 362 | + + + + + +-------+ + + | Serum or | 2022-01-24 | [facility] | 137 | (missing) | (missing) | | plasma | 15:21 | [facility] | | | | | sodium | | [facility] | | | | | measurement | | | | | | | (moles/volum | | | | | | | e) | | | | | | + + + +-------+ + + + + | Result panel 363 | + + + + + +-------+ + + | Serum or | 2022-01-24 | [facility] | 4.5 | (missing) | (missing) | | plasma | 15:21 | [facility] | | | | | potassium | | [facility] | | | | | measurement | | | | | | | (moles/volum | | | | | | | e) | | | | | | + + + +-------+ + + + + | Result panel 364 | + + + + + +-------+ + + | Serum or | 2022-01-24 | [facility] | 103 | (missing) | (missing) | | plasma | 15:21 | [facility] | | | | | chloride | | [facility] | | | | | measurement | | | | | | | (moles/volum | | | | | | | e) | | | | | | + + + +-------+ + + + + | Result panel 365 | + + + + + +------+ + + | Serum or | 2022-01-24 | [facility] | 25 | (missing) | (missing) | | plasma | 15:21 | [facility] | | | | | carbon | | Hospital | | | | | dioxide, | | | | | | | total | | | | | | | measurement | | | | | | | (moles/volum | | | | | | | e) | | | | | | + + + +------+ + + + + | Result panel 366 | + + + + + +--------+ + + | Serum or | 2022-01-24 | [facility] | 13.5 | (missing) | (missing) | | plasma anion | 15:21 | [facility] | | | | | gap 4 | | [facility] | | | | + + + +--------+ + + + + | Result panel 367 | + + + + + +-------+ + + | Serum or | 2022-01-24 | [facility] | 8.6 | (missing) | (missing) | | plasma | 15:21 | [facility] | | | | | calcium | | [facility] | | | | | measurement | | | | | | | (mass/volume | | | | | | | ) | | | | | | + + + +-------+ + + + + | Result panel 368 | + + + + + +-------+ + + | Serum or | 2022-01-24 | [facility] | 1.6 | (missing) | (missing) | | plasma | 15:21 | [facility] | | | | | magnesium | | [facility] | | | | | measurement | | | | | | | (mass/volume | | | | | | | ) | | | | | | + + + +-------+ + + + + | Result panel 369 | + + + + + +-------+ + + | Serum or | 2022-01-24 | [facility] | 7.6 | (missing) | (missing) | | plasma | 15:21 | [facility] | | | | | protein | | [facility] | | | | | measurement | | | | | | | (mass/volume | | | | | | | ) | | | | | | + + + +-------+ + + + + | Result panel 370 | + + + + + +-------+ + + | Serum or | 2022-01-24 | [facility] | 2.8 | (missing) | (missing) | | plasma | 15:21 | [facility] | | | | | albumin | | [facility] | | | | | measurement | | | | | | | (mass/volume | | | | | | | ) | | | | | | + + + +-------+ + + + + | Result panel 371 | + + + + + +-------+ + + | Serum | 2022-01-24 | [facility] | 4.8 | (missing) | (missing) | | globulin | 15:21 | [facility] | | | | | measurement | | [facility] | | | | | (mass/volume | | | | | | | ) | | | | | | + + + +-------+ + + + + | Result panel 372 | + + + + + +--------+ + + | Serum or | 2022-01-24 | [facility] | 0.58 | (missing) | (missing) | | plasma | 15:21 | [facility] | | | | | albumin/glob | | [facility] | | | | | ulin mass | | | | | | | ratio | | | | | | + + + +--------+ + + + + | Result panel 373 | + + + + + +-------+ + + | Serum or | 2022-01-24 | [facility] | 0.9 | (missing) | (missing) | | plasma total | 15:21 | [facility] | | | | | bilirubin | | [facility] | | | | | measurement | | | | | | | (mass/volume | | | | | | | ) | | | | | | + + + +-------+ + + + + | Result panel 374 | + + + + + +------+ + + | Serum or | 2022-01-24 | [facility] | 19 | (missing) | (missing) | | plasma | 15:21 | [facility] | | | | | aspartate | | Hospital | | | | | aminotransfe | | | | | | | rase | | | | | | | measurement | | | | | | | (enzymatic | | | | | | | activity/vol | | | | | | | ume) | | | | | | + + + +------+ + + + + | Result panel 375 | + + + + + +------+ + + | Serum or | 2022-01-24 | [facility] | 18 | (missing) | (missing) | | plasma | 15:21 | [facility] | | | | alanine | | [facility] | | | | | aminotransfe | | | | | | | rase | | | | | | | measurement | | | | | | | (enzymatic | | | | | | | activity/vol | | | | | | | ume) | | | | | | + + + +------+ + + + + | Result panel 376 | + + + + + +------+ + + | Serum or | 2022-01-24 | [facility] | 78 | (missing) | (missing) | | plasma | 15:21 | [facility] | | [facility] alkaline | | [facility] | | | | | phosphatase | | | | | | | measurement | | | | | | | (enzymatic | | | | | | | activity/vol | | | | | | | ume) | | | | | | + + + +------+ + + + + | Result panel 377 | + + + + + +---------+ + + | CRP SerPl | 2022-01-24 | [facility] | < 0.0 | (missing) | (missing) | | Ql | 15:21 | [facility] | | | | + + + +---------+ + + + + | Result panel 378 | + + + + + +-------+ + + | | 2022-01-24 | [facility] | 8.6 | (missing) | (missing) | | (unavailable | 15:21 | [facility] | | | | + + + +-------+ + + + + | Result panel 379 | + + + + + +--------+ + + | | 2022-01-24 | [facility] | 4.41 | (missing) | (missing) | | (unavailable | 15:21 | [facility] | | | | + + + +--------+ + + + + | Result panel 380 | + + + + + +-------+ + + | | 2022-01-24 | [facility] | 9.9 | (missing) | (missing) | | (unavailable | 19:26 | [facility] | | | | + + + +-------+ + + + + | Result panel 381 | + + + + + +-------+ + + | | 2022-01-24 | [facility] | 9.9 | (missing) | (missing) | | (unavailable | 19:26 | [facility] | | | | + + + +-------+ + + + + | Result panel 382 | + + + + + +-------+ + + | | 2022-01-24 | [facility] | 9.9 | (missing) | (missing) | | (unavailable | 19:26 | [facility] | | | | + + + +-------+ + + + + | Result panel 383 | + + + + + +-------+ + + | Serum or | 2022-01-24 | [facility] | 9.9 | (missing) | (missing) | | plasma | 19:26 | [facility] | | | cardiac | | [facility] | | | | | troponin I | | | | | | | measurement | | | | | | | by high | | | | | | | senstivity | | | | | | | method | | | | | | | (mass/volume | | | | | | | ) | | | | | | + + + +-------+ + + + + | Result panel 384 | + + + + + + + + + | | 2022-02-01 | [facility] | YELLOW | (missing) | (missing) | | (unavailable | 16:09 | [facility] | | | | + + + + + + + + + | Result panel 385 | + + + + + +---------+ + + | | 2022-02-01 | [facility] | CLEAR | (missing) | (missing) | | (unavailable | 16:09 | [facility] | | | | + + + +---------+ + + + + | Result panel 386 | + + + + + + + + + | | 2022-02-01 | [facility] | NEGATIVE | (missing) | (missing) | | (unavailable | 16:09 | [facility] | | | | + + + + + + + + + | Result panel 387 | + + + + + + + + + | | 2022-02-01 | [facility] | NEGATIVE | (missing) | (missing) | | (unavailable | 16:09 | [facility] | | | | + + + + + + + + + | Result panel 388 | + + + + + + + + + | | 2022-02-01 | [facility] | NEGATIVE | (missing) | (missing) | | (unavailable | 16:09 | [facility] | | | | + + + + + + + + + | Result panel 389 | + + + + + +---------+ + + | | 2022-02-01 | [facility] | 1.025 | (missing) | (missing) | | (unavailable | 16:09 | [facility] | | | | + + + +---------+ + + + + | Result panel 390 | + + + + + + + + + | | 2022-02-01 | [facility] | MODERATE | (missing) | (missing) | | (unavailable | 16:09 | [facility] | | | | + + + + + + + + + | Result panel 391 | + + + + + +-------+ + + | | 2022-02-01 | [facility] | 5.0 | (missing) | (missing) | | (unavailable | 16:09 | [facility] | | | | + + + +-------+ + + + + | Result panel 392 | + + + + + +-------+ + + | | 2022-02-01 | [facility] | 100 | (missing) | (missing) | | (unavailable | 16:09 | [facility] | | | | + + + +-------+ + + + + | Result panel 393 | + + + + + + + + + | | 2022-02-01 | [facility] | NORMAL | (missing) | (missing) | | (unavailable | 16:09 | [facility] | | | | + + + + + + + + + | Result panel 394 | + + + + + + + + + | | 2022-02-01 | [facility] | NEGATIVE | (missing) | (missing) | | (unavailable | 16:09 | [facility] | | | | + + + + + + + + + | Result panel 395 | + + + + + +---------+ + + | | 2022-02-01 | [facility] | SMALL | (missing) | (missing) | | (unavailable | 16:09 | [facility] | | | | + + + +---------+ + + + + | Result panel 396 | + + + + + +--------+ + + | | 2022-02-01 | [facility] | 7-11 | (missing) | (missing) | | (unavailable | 16:09 | [facility] | | | | + + + +--------+ + + + + | Result panel 397 | + + + + + +--------+ + + | | 2022-02-01 | [facility] | 7-11 | (missing) | (missing) | | (unavailable | 16:09 | [facility] | | | | + + + +--------+ + + + + | Result panel 398 | + + + + + + + + + | | 2022-02-01 | [facility] | SQUAMOUS 2+ | (missing) | (missing) | | (unavailable | 16:09 | [facility] | | | | + + + + + + + + + | Result panel 399 | + + + + + + + + + | | 2022-02-01 | [facility] | NONE SEEN | (missing) | (missing) | | (unavailable | 16:09 | [facility] | | | | + + + + + + + + + | Result panel 400 | + + + + + +------+ + + | | 2022-02-01 | [facility] | 2+ | (missing) | (missing) | | (unavailable | 16:09 | [facility] | | | | + + + +------+ + + + + | Result panel 401 | + + + + + + + + + | | 2022-02-01 | [facility] | NONE SEEN | (missing) | (missing) | | (unavailable | 16:09 | [facility] | | | | + + + + + + + + + | Result panel 402 | + + + + + +-------+ + + | | 2022-02-01 | [facility] | Yes | (missing) | (missing) | | (unavailable | 16:09 | [facility] | | | | + + + +-------+ + + + + | Result panel 403 | + + + + + + + + + | | 2022-02-01 | [facility] | CLEAN CATCH | (missing) | (missing) | | (unavailable | 16:09 | [facility] | | | | + + + + + + + + + | Result panel 404 | + + + + + + + + + | | 2022-02-01 | [facility] | YELLOW | (missing) | (missing) | | (unavailable | 16:09 | [facility] | | | | + + + + + + + + + | Result panel 405 | + + + + + +---------+ + + | | 2022-02-01 | [facility] | CLEAR | (missing) | (missing) | | (unavailable | 16:09 | [facility] | | | | + + + +---------+ + + + + | Result panel 406 | + + + + + + + + + | | 2022-02-01 | [facility] | NEGATIVE | (missing) | (missing) | | (unavailable | 16:09 | [facility] | | | | + + + + + + + + + | Result panel 407 | + + + + + + + + + | | 2022-02-01 | [facility] | NEGATIVE | (missing) | (missing) | | (unavailable | 16:09 | [facility] | | | | + + + + + + + + + | Result panel 408 | + + + + + + + + + | | 2022-02-01 | [facility] | NEGATIVE | (missing) | (missing) | | (unavailable | 16:09 | [facility] | | | | + + + + + + + + + | Result panel 409 | + + + + + +---------+ + + | | 2022-02-01 | [facility] | 1.025 | (missing) | (missing) | | (unavailable | 16:09 | [facility] | | | | + + + +---------+ + + + + | Result panel 410 | + + + + + + + + + | | 2022-02-01 | [facility] | MODERATE | (missing) | (missing) | | (unavailable | 16:09 | [facility] | | | | + + + + + + + + + | Result panel 411 | + + + + + +-------+ + + | | 2022-02-01 | [facility] | 5.0 | (missing) | (missing) | | (unavailable | 16:09 | [facility] | | | | + + + +-------+ + + + + | Result panel 412 | + + + + + +-------+ + + | | 2022-02-01 | [facility] | 100 | (missing) | (missing) | | (unavailable | 16:09 | [facility] | | | | + + + +-------+ + + + + | Result panel 413 | + + + + + + + + + | | 2022-02-01 | [facility] | NORMAL | (missing) | (missing) | | (unavailable | 16:09 | [facility] | | | | + + + + + + + + + | Result panel 414 | + + + + + + + + + | | 2022-02-01 | [facility] | NEGATIVE | (missing) | (missing) | | (unavailable | 16:09 | [facility] | | | | + + + + + + + + + | Result panel 415 | + + + + + +---------+ + + | | 2022-02-01 | [facility] | SMALL | (missing) | (missing) | | (unavailable | 16:09 | [facility] | | | | + + + +---------+ + + + + | Result panel 416 | + + + + + +--------+ + + | | 2022-02-01 | [facility] | 7-11 | (missing) | (missing) | | (unavailable | 16:09 | [facility] | | | | + + + +--------+ + + + + | Result panel 417 | + + + + + +--------+ + + | | 2022-02-01 | [facility] | 7-11 | (missing) | (missing) | | (unavailable | 16:09 | [facility] | | | | + + + +--------+ + + + + | Result panel 418 | + + + + + + + + + | | 2022-02-01 | [facility] | SQUAMOUS 2+ | (missing) | (missing) | | (unavailable | 16:09 | [facility] | | | | + + + + + + + + + | Result panel 419 | + + + + + + + + + | | 2022-02-01 | [facility] | NONE SEEN | (missing) | (missing) | | (unavailable | 16:09 | [facility] | | | | + + + + + + + + + | Result panel 420 | + + + + + +------+ + + | | 2022-02-01 | [facility] | 2+ | (missing) | (missing) | | (unavailable | 16:09 | [facility] | | | | + + + +------+ + + + + | Result panel 421 | + + + + + + + + + | | 2022-02-01 | [facility] | NONE SEEN | (missing) | (missing) | | (unavailable | 16:09 | [facility] | | | | + + + + + + + + + | Result panel 422 | + + + + + +-------+ + + | | 2022-02-01 | [facility] | Yes | (missing) | (missing) | | (unavailable | 16:09 | [facility] | | | | + + + +-------+ + + + + | Result panel 423 | + + + + + + + + + | | 2022-02-01 | [facility] | CLEAN CATCH | (missing) | (missing) | | (unavailable | 16:09 | [facility] | [facility] | | | | + + + + + + + + + | Result panel 424 | + + + + + + + + + | Color of | 2022-02-01 | [facility] | YELLOW | (missing) | (missing) | | Urine by | 16:09 | [facility] | | | | | Auto | | [facility] | | | | + + + + + + + + + | Result panel 425 | + + + + + +---------+ + + | Character | 2022-02-01 | [facility] | CLEAR | (missing) | (missing) | | of Urine | 16:09 | [facility] | | | | + + + +---------+ + + + + | Result panel 426 | + + + + + + + + + | Glucose | 2022-02-01 | [facility] | NEGATIVE | (missing) | (missing) | | [Presence] | 16:09 | [facility] | | | | | in Urine by | | Hospital | | | | | Test strip | | | | | | + + + + + + + + + | Result panel 427 | + + + + + + + + + | Urine total | 2022-02-01 | [facility] | NEGATIVE | (missing) | (missing) | | bilirubin | 16:09 | [facility] | | | | | detection by | | Hospital | | | | | test strip | | | | | | + + + + + + + + + | Result panel 428 | + + + + + + + + + | Urine | 2022-02-01 | [facility] | NEGATIVE | (missing) | (missing) | | ketones | 16:09 | [facility] | | | | | detection by | | Hospital | | | | | test strip | | | | | | + + + + + + + + + | Result panel 429 | + + + + + +---------+ + + | Specific | 2022-02-01 | [facility] | 1.025 | (missing) | (missing) | | gravity ur | 16:09 | [facility] | | | | | dipstick | | [facility] | | | | + + + +---------+ + + + + | Result panel 430 | + + + + + + + + + | Urine | 2022-02-01 | [facility] | MODERATE | (missing) | (missing) | | hemoglobin | 16:09 | [facility] | | | | | detection by | | Hospital | | | | | test strip | | | | | | + + + + + + + + + | Result panel 431 | + + + + + +-------+ + + | Urine pH | 2022-02-01 | [facility] | 5.0 | (missing) | (missing) | | measurement | 16:09 | [facility] | | | | | by test | | Hospital | | | | | strip | | | | | | + + + +-------+ + + + + | Result panel 432 | + + + + + +-------+ + + | Protein | 2022-02-01 | [facility] | 100 | (missing) | (missing) | | urine test | 16:09 | [facility] | | | | | strip | | Hospital | | | | + + + +-------+ + + + + | Result panel 433 | + + + + + + + + + | | 2022-02-01 | [facility] | NORMAL | (missing) | (missing) | | Urobilinogen | 16:09 | [facility] | | | | | | [facility] | | | | | [Mass/volume | | | | | | | ] in Urine | | | | | | | by Test | | | | | | | strip | | | | | | + + + + + + + + + | Result panel 434 | + + + + + + + + + | Urine | 2022-02-01 | [facility] | NEGATIVE | (missing) | (missing) | | nitrite | 16:09 | [facility] | | | | | detection by | | Hospital | | | | | test strip | | | | | | + + + + + + + + + | Result panel 435 | + + + + + +---------+ + + | Urine | 2022-02-01 | [facility] | SMALL | (missing) | (missing) | | leukocyte | 16:09 | [facility] | | | | | esterase | | [facility] | | | | | detection by | | | | | | | dipstick | | | | | | + + + +---------+ + + + + | Result panel 436 | + + + + + +--------+ + + | Automated | 2022-02-01 | [facility] | 7-11 | (missing) | (missing) | | urine | 16:09 | [facility] | | | | | sediment | | [facility] | | | | | erythrocyte | | | | | | | count by | | | | | | | microscopy | | | | | | | (number/high | | | | | | | power | | | | | | | field) | | | | | | + + + +--------+ + + + + | Result panel 437 | + + + + + +--------+ + + | Automated | 2022-02-01 | [facility] | 7-11 | (missing) | (missing) | | urine | 16:09 | [facility] | | | | | sediment | | [facility] | | | | | leukocyte | | | | | | | count by | | | | | | | microscopy | | | | | | | (number/high | | | | | | | power | | | | | | | field) | | | | | | + + + +--------+ + + + + | Result panel 438 | + + + + + + + + + | Automated | 2022-02-01 | [facility] | SQUAMOUS 2+ | (missing) | (missing) | | urine | 16:09 | [facility] | | | | | sediment | | Hospital | | | | | epithelial | | | | | | | cell count | | | | | | | by | | | | | | | microscopy | | | | | | | (number/high | | | | | | | power | | | | | | | field) | | | | | | + + + + + + + + + | Result panel 439 | + + + + + + + + + | Crystal | 2022-02-01 | [facility] | NONE SEEN | (missing) | (missing) | | typing in | 16:09 | [facility] | | | | | urine | | Hospital | | | | | sediment by | | | | | | | light | | | | | | | microscopy | | | | | | + + + + + + + + + | Result panel 440 | + + + + + +------+ + + | Automated | 2022-02-01 | [facility] | 2+ | (missing) | (missing) | | urine | 16:09 | [facility] | | | | | sediment | | Hospital | | | | | bacteria | | | | | | | count by | | | | | | | microscopy | | | | | | | (number/high | | | | | | | power | | | | | | | field) | | | | | | + + + +------+ + + + + | Result panel 441 | + + + + + + + + + | Automated | 2022-02-01 | [facility] | NONE SEEN | (missing) | (missing) | | casts count | 16:09 | [facility] | | | | | in urine | | Hospital | | | | | sediment by | | | | | | | microscopy | | | | | | | low power | | | | | | | field | | | | | | | (number/area | | | | | | | ) | | | | | | + + + + + + + + + | Result panel 442 | + + + + + +-------+ + + | Reflexive | 2022-02-01 | [facility] | Yes | (missing) | (missing) | | urine | 16:09 | [facility] | | | | | bacterial | | Hospital | | | | | culture | | | | | | + + + +-------+ + + + + | Result panel 443 | + + + + + + + + + | Urinalysis | 2022-02-01 | [facility] | CLEAN CATCH | (missing) | (missing) | | specimen | 16:09 | [facility] | | | | | collection | | Hospital | | | | | method | | | | | | + + + + + + + + + | Result panel 444 | + + + + + + + + + | Bacterial | 2022-02-01 | [facility] | SEE | (missing) | (missing) | | urine | 16:09 | [facility] | SEPARATE | | | | culture | | Hospital | REPORT | | | + + + + + + + + + | Result panel 445 | + + + + + + + + + | | 2022-02-01 | [facility] | YELLOW | (missing) | (missing) | | (unavailable | 16:09 | [facility] | | | | ) | | [facility] | | | | + + + + + + + + + | Result panel 446 | + + + + + +---------+ + + | | 2022-02-01 | [facility] | CLEAR | (missing) | (missing) | | (unavailable | 16:09 | [facility] | | | | ) | | [facility] | | | | + + + +---------+ + + + + | Result panel 447 | + + + + + + + + + | | 2022-02-01 | [facility] | NEGATIVE | (missing) | (missing) | | (unavailable | 16:09 | [facility] | | | | ) | | [facility] | | | | + + + + + + + + + | Result panel 448 | + + + + + + + + + | | 2022-02-01 | [facility] | NEGATIVE | (missing) | (missing) | | (unavailable | 16:09 | [facility] | | [facility] | ) | | [facility] | | | | + + + + + + + + + | Result panel 449 | + + + + + + + + + | | 2022-02-01 | [facility] | NEGATIVE | (missing) | (missing) | | (unavailable | 16:09 | [facility] | | [facility] ) | | [facility] | | | | + + + + + + + + + | Result panel 450 | + + + + + +---------+ + + | | 2022-02-01 | [facility] | 1.025 | (missing) | (missing) | | (unavailable | 16:09 | [facility] | | [facility] ) | | [facility] | | | | + + + +---------+ + + + + | Result panel 451 | + + + + + + + + + | | 2022-02-01 | [facility] | MODERATE | (missing) | (missing) | | (unavailable | 16:09 | [facility] | | [facility] ) | | [facility] | | | | + + + + + + + + + | Result panel 452 | + + + + + +-------+ + + | | 2022-02-01 | [facility] | 5.0 | (missing) | (missing) | | (unavailable | 16:09 | [facility] | | [facility] ) | | [facility] | | | | + + + +-------+ + + + + | Result panel 453 | + + + + + +-------+ + + | | 2022-02-01 | [facility] | 100 | (missing) | (missing) | | (unavailable | 16:09 | [facility] | | [facility] ) | | [facility] | | | | + + + +-------+ + + + + | Result panel 454 | + + + + + + + + + | | 2022-02-01 | [facility] | NORMAL | (missing) | (missing) | | (unavailable | 16:09 | [facility] | | [facility] ) | | [facility] | | | | + + + + + + + + + | Result panel 455 | + + + + + + + + + | | 2022-02-01 | [facility] | NEGATIVE | (missing) | (missing) | | (unavailable | 16:09 | [facility] | | [facility] ) | | [facility] | | | | + + + + + + + + + | Result panel 456 | + + + + + +---------+ + + | | 2022-02-01 | [facility] | SMALL | (missing) | (missing) | | (unavailable | 16:09 | [facility] | | [facility] ) | | [facility] | | | | + + + +---------+ + + + + | Result panel 457 | + + + + + +--------+ + + | | 2022-02-01 | [facility] | 711 | (missing) | (missing) | | (unavailable | 16:09 | [facility] | | [facility] ) | | [facility] | | | | + + + +--------+ + + + + | Result panel 458 | + + + + + +--------+ + + | | 2022-02-01 | [facility] | 7-11 | (missing) | (missing) | | (unavailable | 16:09 | [facility] | | [facility] ) | | [facility] | | | | + + + +--------+ + + + + | Result panel 459 | + + + + + + + + + | | 2022-02-01 | [facility] | SQUAMOUS 2+ | (missing) | (missing) | | (unavailable | 16:09 | [facility] | | [facility] ) | | [facility] | | | | + + + + + + + + + | Result panel 460 | + + + + + + + + + | | 2022-02-01 | [facility] | NONE SEEN | (missing) | (missing) | | (unavailable | 16:09 | [facility] | | [facility] ) | | [facility] | | | | + + + + + + + + + | Result panel 461 | + + + + + +------+ + + | | 2022-02-01 | [facility] | 2+ | (missing) | (missing) | | (unavailable | 16:09 | [facility] | | [facility] | ) | | [facility] | | | | + + + +------+ + + + + | Result panel 462 | + + + + + + + + + | | 2022-02-01 | [facility] | NONE SEEN | (missing) | (missing) | | (unavailable | 16:09 | [facility] | | [facility] ) | | [facility] | | | | + + + + + + + + + | Result panel 463 | + + + + + +-------+ + + | | 2022-02-01 | [facility] | Yes | (missing) | (missing) | | (unavailable | 16:09 | [facility] | | | | ) | | [facility] | | | | + + + +-------+ + + + + | Result panel 464 | + + + + + + + + + | | 2022-02-01 | [facility] | CLEAN CATCH | (missing) | (missing) | | (unavailable | 16:09 | [facility] | | [facility] ) | | [facility] | | | | + + + + + + + + + | Result panel 465 | + + + + + + + + + | Color of | 2022-02-01 | [facility] | YELLOW | (missing) | (missing) | | Urine by | 16:09 | [facility] | | | | | Auto | | Hospital | | | | + + + + + + + + + | Result panel 466 | + + + + + +---------+ + + | Character | 2022-02-01 | [facility] | CLEAR | (missing) | (missing) | | of Urine | 16:09 | [facility] | | | | | | [facility] | | | | + + + +---------+ + + + + | Result panel 467 | + + + + + + + + + | Glucose | 2022-02-01 | [facility] | NEGATIVE | (missing) | (missing) | | [Presence] | 16:09 | [facility] | | | | | in Urine by | | Hospital | | | | | Test strip | | | | | | + + + + + + + + + | Result panel 468 | + + + + + + + + + | Urine total | 2022-02-01 | [facility] | NEGATIVE | (missing) | (missing) | | bilirubin | 16:09 | [facility] | | | | | detection by | | Hospital | | | | | test strip | | | | | | + + + + + + + + + | Result panel 469 | + + + + + + + + + | Urine | 2022-02-01 | [facility] | NEGATIVE | (missing) | (missing) | | ketones | 16:09 | [facility] | | | | | detection by | | Hospital | | | | | test strip | | | | | | + + + + + + + + + | Result panel 470 | + + + + + +---------+ + + | Specific | 2022-02-01 | [facility] | 1.025 | (missing) | (missing) | | gravity ur | 16:09 | [facility] | | | | | dipstick | | [facility] | | | | + + + +---------+ + + + + | Result panel 471 | + + + + + + + + + | Urine | 2022-02-01 | [facility] | MODERATE | (missing) | (missing) | | hemoglobin | 16:09 | [facility] | | | | | detection by | | Hospital | | | | | test strip | | | | | | + + + + + + + + + | Result panel 472 | + + + + + +-------+ + + | Urine pH | 2022-02-01 | [facility] | 5.0 | (missing) | (missing) | | measurement | 16:09 | [facility] | | | | | by test | | Hospital | | | | | strip | | | | | | + + + +-------+ + + + + | Result panel 473 | + + + + + +-------+ + + | Protein | 2022-02-01 | [facility] | 100 | (missing) | (missing) | | urine test | 16:09 | [facility] | | | | | strip | | Hospital | | | | + + + +-------+ + + + + | Result panel 474 | + + + + + + + + + | | 2022-02-01 | [facility] | NORMAL | (missing) | (missing) | | Urobilinogen | 16:09 | [facility] | | | | | | [facility] | | | | | [Mass/volume | | | | | | | ] in Urine | | | | | | | by Test | | | | | | | strip | | | | | | + + + + + + + + + | Result panel 475 | + + + + + + + + + | Urine | 2022-02-01 | [facility] | NEGATIVE | (missing) | (missing) | | nitrite | 16:09 | [facility] | | | | | detection by | | Hospital | | | | | test strip | | | | | | + + + + + + + + + | Result panel 476 | + + + + + +---------+ + + | Urine | 2022-02-01 | [facility] | SMALL | (missing) | (missing) | | leukocyte | 16:09 | [facility] | | | | | esterase | | Hospital | | | | | detection by | | | | | | | dipstick | | | | | | + + + +---------+ + + + + | Result panel 477 | + + + + + +--------+ + + | Automated | 2022-02-01 | [facility] | 7-11 | (missing) | (missing) | | urine | 16:09 | [facility] | | | | | sediment | | [facility] | | | | | erythrocyte | | | | | | | count by | | | | | | | microscopy | | | | | | | (number/high | | | | | | | power | | | | | | | field) | | | | | | + + + +--------+ + + + + | Result panel 478 | + + + + + +--------+ + + | Automated | 2022-02-01 | [facility] | 7-11 | (missing) | (missing) | | urine | 16:09 | [facility] | | | | | sediment | | [facility] | | | | | leukocyte | | | | | | | count by | | | | | | | microscopy | | | | | | | (number/high | | | | | | | power | | | | | | | field) | | | | | | + + + +--------+ + + + + | Result panel 479 | + + + + + + + + + | Automated | 2022-02-01 | [facility] | SQUAMOUS 2+ | (missing) | (missing) | | urine | 16:09 | [facility] | | | | | sediment | | Hospital | | | | | epithelial | | | | | | | cell count | | | | | | | by | | | | | | | microscopy | | | | | | | (number/high | | | | | | | power | | | | | | | field) | | | | | | + + + + + + + + + | Result panel 480 | + + + + + + + + + | Crystal | 2022-02-01 | [facility] | NONE SEEN | (missing) | (missing) | | typing in | 16:09 | [facility] | | | | | urine | | [facility] | | | | | sediment by | | | | | | | light | | | | | | | microscopy | | | | | | + + + + + + + + + | Result panel 481 | + + + + + +------+ + + | Automated | 2022-02-01 | [facility] | 2+ | (missing) | (missing) | | urine | 16:09 | [facility] | | | | | sediment | | [facility] | | | | | bacteria | | | | | | | count by | | | | | | | microscopy | | | | | | | (number/high | | | | | | | power | | | | | | | field) | | | | | | + + + +------+ + + + + | Result panel 482 | + + + + + + + + + | Automated | 2022-02-01 | [facility] | NONE SEEN | (missing) | (missing) | | casts count | 16:09 | [facility] | | | | | in urine | | Hospital | | | | | sediment by | | | | | | | microscopy | | | | | | | low power | | | | | | | field | | | | | | | (number/area | | | | | | | ) | | | | | | + + + + + + + + + | Result panel 483 | + + + + + +-------+ + + | Reflexive | 2022-02-01 | [facility] | Yes | (missing) | (missing) | | urine | 16:09 | [facility] | | | | | bacterial | | [facility] | | | | | culture | | | | | | + + + +-------+ + + + + | Result panel 484 | + + + + + + + + + | Urinalysis | 2022-02-01 | [facility] | CLEAN CATCH | (missing) | (missing) | | specimen | 16:09 | [facility] | | | | | collection | | Hospital | | | | | method | | | | | | + + + + + + + + + | Result panel 485 | + + + + + + + + + | Bacterial | 2022-02-01 | [facility] | SEE | (missing) | (missing) | | urine | 16:09 | [facility] | SEPARATE | | | | culture | | Hospital | REPORT | | | + + + + + + + + + | Result panel 486 | + + + + + +--------+ + + | Fibrin | 2022-02-27 | [facility] | 0.28 | (missing) | (missing) | | D-dimer FEU | 23:31 | [facility] | | | | | [Mass/volume | | [facility] | | | | | ] in | | | | | | | Platelet | | | | | | | poor plasma | | | | | | | by | | | | | | | Immunoassay | | | | | | + + + +--------+ + + + + | Result panel 487 | + + + + + +--------+ + + | Fibrin | 2022-02-27 | [facility] | 0.28 | (missing) | (missing) | | D-dimer FEU | 23:31 | [facility] | | | | [Mass/volume | | [facility] | | | | | ] in | | | | | | | Platelet | | | | | | | poor plasma | | | | | | | by | | | | | | | Immunoassay | | | | | | + + + +--------+ + + + + | Result panel 488 | + + + + + +--------+ + + | | 2022-02-27 | [facility] | 0.28 | (missing) | (missing) | | (unavailable | 23:31 | [facility] | | | | + + + +--------+ + + + + | Result panel 489 | + + + + + +--------+ + + | Fibrin | 2022-02-27 | [facility] | 0.28 | (missing) | (missing) | | [facility]dim[facility] FEU | 23:31 | [facility] | | | | [Mass/volume | | [facility] | | | | | ] in | | | | | | | Platelet | | | | | | | poor plasma | | | | | | | by | | | | | | | Immunoassay | | | | | | + + + +--------+ + + + + | Result panel 490 | + + + + + +--------+ + + | | 2022-02-27 | [facility] | 0.28 | (missing) | (missing) | | (unavailable | 23:31 | [facility] | | | | + + + +--------+ + + + + | Result panel 491 | + + + + + +--------+ + + | Fibrin | 2022-02-27 | [facility] | 0.28 | (missing) | (missing) | | [facility]dim[facility] FEU | 23:31 | [facility] | | | | [Mass/volume | | [facility] | | | | | ] in | | | | | | | Platelet | | | | | | | poor plasma | | | | | | | by | | | | | | | Immunoassay | | | | | | + + + +--------+ + + + + | Result panel 492 | + + + + + +--------+ + + | | 2022-02-27 | [facility] | 0.28 | (missing) | (missing) | | (unavailable | 23:31 | [facility] | | | | + + + +--------+ + + + + | Result panel 493 | + + + + + +--------+ + + | Fibrin | 2022-02-27 | [facility] | 0.28 | (missing) | (missing) | | D[facility]dimer FEU | 23:31 | [facility] | | | | [Mass/volume | | [facility] | | | | | ] in | | | | | | | Platelet | | | | | | | poor plasma | | | | | | | by | | | | | | | Immunoassay | | | | | | + + + +--------+ + + + + | Result panel 494 | + + + + + +-------+ + + | Serum or | 2022-02-27 | [facility] | 157 | (missing) | (missing) | | plasma | 23:31 | [facility] | | | | glucose | | [facility] | | | | | measurement | | | | | | | (mass/volume | | | | | | | ) | | | | | | + + + +-------+ + + + + | Result panel 495 | + + + + + +------+ + + | Serum or | 2022-02-27 | [facility] | 23 | (missing) | (missing) | | plasma urea | 23:31 | [facility] | | | | nitrogen | | [facility] | | | | | measurement | | | | | | | (mass/volume | | | | | | | ) | | | | | | + + + +------+ + + + + | Result panel 496 | + + + + + +--------+ + + | Serum or | 2022-02-27 | [facility] | 1.11 | (missing) | (missing) | | plasma | 23:31 | [facility] | | | | creatinine | | [facility] | | | | | measurement | | | | | | | (mass/volume | | | | | | | ) | | | | | | + + + +--------+ + + + + | Result panel 497 | + + + + + +------+ + + | Glomerular | 2022-02-27 | [facility] | 63 | (missing) | (missing) | | filtration | 23:31 | [facility] | | | | | rate/1.73 sq | | Hospital | | | | | M.predicted | | | | | | | [Volume | | | | | | | Rate/Area] | | | | | | | inSerum, | | | | | | | Plasma or | | | | | | | Blood by | | | | | | | Creatinine-b | | | | | | | ased formula | | | | | | | (CKD-EPI | | | | | | | 2020) | | | | | | + + + +------+ + + + + | Result panel 498 | + + + + + +---------+ + + | Serum or | 2022-02-27 | [facility] | 20.72 | (missing) | (missing) | | plasma urea | 23:31 | [facility] | | | | | nitrogen/cre | | Hospital | | | | | atinine mass | | | | | | | ratio | | | | | | + + + +---------+ + + + + | Result panel 499 | + + + + + +-------+ + + | Serum or | 2022-02-27 | [facility] | 135 | (missing) | (missing) | | plasma | 23:31 | [facility] | | | | | sodium | | [facility] | | | | | measurement | | | | | | | (moles/volum | | | | | | | e) | | | | | | + + + +-------+ + + + + | Result panel 500 | + + + + + +-------+ + + | Serum or | 2022-02-27 | [facility] | 3.8 | (missing) | (missing) | | plasma | 23:31 | [facility] | | | | | potassium | | [facility] | | | | | measurement | | | | | | | (moles/volum | | | | | | | e) | | | | | | + + + +-------+ + + + + | Result panel 501 | + + + + + +-------+ + + | Serum or | 2022-02-27 | [facility] | 102 | (missing) | (missing) | | plasma | 23:31 | [facility] | | | | | chloride | | [facility] | | | | | measurement | | | | | | | (moles/volum | | | | | | | e) | | | | | | + + + +-------+ + + + + | Result panel 502 | + + + + + +------+ + + | Serum or | 2022-02-27 | [facility] | 23 | (missing) | (missing) | | plasma | 23:31 | [facility] | | | | | carbon | | Hospital | | | | | dioxide, | | | | | | | total | | | | | | | measurement | | | | | | | (moles/volum | | | | | | | e) | | | | | | + + + +------+ + + + + | Result panel 503 | + + + + + +--------+ + + | Serum or | 2022-02-27 | [facility] | 13.8 | (missing) | (missing) | | plasma anion | 23:31 | [facility] | | | | | gap 4 | | [facility] | | | | + + + +--------+ + + + + | Result panel 504 | + + + + + +-------+ + + | Serum or | 2022-02-27 | [facility] | 8.4 | (missing) | (missing) | | plasma | 23:31 | [facility] | | | | | calcium | | [facility] | | | | | measurement | | | | | | | (mass/volume | | | | | | | ) | | | | | | + + + +-------+ + + + + | Result panel 505 | + + + + + +-------+ + + | Serum or | 2022-02-27 | [facility] | 1.4 | (missing) | (missing) | | plasma | 23:31 | [facility] | | | | | magnesium | | [facility] | | | | | measurement | | | | | | | (mass/volume | | | | | | | ) | | | | | | + + + +-------+ + + + + | Result panel 506 | + + + + + +-------+ + + | Serum or | 2022-02-27 | [facility] | 7.4 | (missing) | (missing) | | plasma | 23:31 | [facility] | | | | | protein | | [facility] | | | | | measurement | | | | | | | (mass/volume | | | | | | | ) | | | | | | + + + +-------+ + + + + | Result panel 507 | + + + + + +-------+ + + | Serum or | 2022-02-27 | [facility] | 3.3 | (missing) | (missing) | | plasma | 23:31 | [facility] | | | | | albumin | | [facility] | | | | | measurement | | | | | | | (mass/volume | | | | | | | ) | | | | | | + + + +-------+ + + + + | Result panel 508 | + + + + + +-------+ + + | Serum | 2022-02-27 | [facility] | 4.1 | (missing) | (missing) | | globulin | 23:31 | [facility] | | | | | measurement | | [facility] | | | | | (mass/volume | | | | | | | ) | | | | | | + + + +-------+ + + + + | Result panel 509 | + + + + + +--------+ + + | Serum or | 2022-02-27 | [facility] | 0.80 | (missing) | (missing) | | plasma | 23:31 | [facility] | | | | | albumin/glob | | [facility] | | | | | ulin mass | | | | | | | ratio | | | | | | + + + +--------+ + + + + | Result panel 510 | + + + + + +------+ + + | Serum or | 2022-02-27 | [facility] | 36 | (missing) | (missing) | | plasma | 23:31 | [facility] | | | | | aspartate | | Hospital | | | | | aminotransfe | | | | | | | rase | | | | | | | measurement | | | | | | | (enzymatic | | | | | | | activity/vol | | | | | | | ume) | | | | | | + + + +------+ + + + + | Result panel 511 | + + + + + +------+ + + | Serum or | 2022-02-27 | [facility] | 46 | (missing) | (missing) | | plasma | 23:31 | [facility] | | | | | alanine | | Hospital | | | | | aminotransfe | | | | | | | rase | | | | | | | measurement | | | | | | | (enzymatic | | | | | | | activity/vol | | | | | | | ume) | | | | | | + + + +------+ + + + + | Result panel 512 | + + + + + +------+ + + | Serum or | 2022-02-27 | [facility] | 62 | (missing) | (missing) | | plasma | 23:31 | [facility] | | | | | alkaline | | [facility] | | | | | phosphatase | | | | | | | measurement | | | | | | | (enzymatic | | | | | | | activity/vol | | | | | | | ume) | | | | | | + + + +------+ + + + + | Result panel 513 | + + + + + +--------+ + + | | 2022-02-27 | [facility] | 0.28 | (missing) | (missing) | | (unavailable | 23:31 | [facility] | | | | + + + +--------+ + + + + | Result panel 514 | + + + + + +-------+---------+ + | | 2022-02-27 | [facility] | 157 | mg/dL | (missing) | | (unavailable | 23:31 | [facility] | | | | + + + +-------+---------+ + + + | Result panel 515 | + + + + + +------+---------+ + | | 2022-02-27 | [facility] | 23 | mg/dL | (missing) | | (unavailable | 23:31 | [facility] | | | | + + + +------+---------+ + + + | Result panel 516 | + + + + + +--------+---------+ + | | 2022-02-27 | [facility] | 1.11 | mg/dL | (missing) | | (unavailable | 23:31 | [facility] | | | | + + + +--------+---------+ + + + | Result panel 517 | + + + + + +------+ + + | | 2022-02-27 | [facility] | 63 | (missing) | (missing) | | (unavailable | 23:31 | [facility] | | | | + + + +------+ + + + + | Result panel 518 | + + + + + +---------+ + + | | 2022-02-27 | [facility] | 20.72 | (missing) | (missing) | | (unavailable | 23:31 | [facility] | | | | + + + +---------+ + + + + | Result panel 519 | + + + + + +-------+ + + | | 2022-02-27 | [facility] | 135 | (missing) | (missing) | | (unavailable | 23:31 | [facility] | | | | + + + +-------+ + + + + | Result panel 520 | + + + + + +-------+ + + | | 2022-02-27 | [facility] | 3.8 | (missing) | (missing) | | (unavailable | 23:31 | [facility] | | | | + + + +-------+ + + + + | Result panel 521 | + + + + + +-------+ + + | | 2022-02-27 | [facility] | 102 | (missing) | (missing) | | (unavailable | 23:31 | [facility] | | | | + + + +-------+ + + + + | Result panel 522 | + + + + + +------+ + + | | 2022-02-27 | [facility] | 23 | (missing) | (missing) | | (unavailable | 23:31 | [facility] | | | | + + + +------+ + + + + | Result panel 523 | + + + + + +--------+ + + | | 2022-02-27 | [facility] | 13.8 | (missing) | (missing) | | (unavailable | 23:31 | [facility] | | | | + + + +--------+ + + + + | Result panel 524 | + + + + + +-------+---------+ + | | 2022-02-27 | [facility] | 8.4 | mg/dL | (missing) | | (unavailable | 23:31 | [facility] | | | | + + + +-------+---------+ + + + | Result panel 525 | + + + + + +-------+---------+ + | | 2022-02-27 | [facility] | 1.4 | mg/dL | (missing) | | (unavailable | 23:31 | [facility] | | | | + + + +-------+---------+ + + + | Result panel 526 | + + + + + +-------+ + + | | 2022-02-27 | [facility] | 7.4 | (missing) | (missing) | | (unavailable | 23:31 | [facility] | | | | + + + +-------+ + + + + | Result panel 527 | + + + + + +-------+ + + | | 2022-02-27 | [facility] | 3.3 | (missing) | (missing) | | (unavailable | 23:31 | [facility] | | | | + + + +-------+ + + + + | Result panel 528 | + + + + + +-------+ + + | | 2022-02-27 | [facility] | 4.1 | (missing) | (missing) | | (unavailable | 23:31 | [facility] | | | | + + + +-------+ + + + + | Result panel 529 | + + + + + +--------+ + + | | 2022-02-27 | [facility] | 0.80 | (missing) | (missing) | | (unavailable | 23:31 | [facility] | | | | + + + +--------+ + + + + | Result panel 530 | + + + + + +------+ + + | | 2022-02-27 | [facility] | 36 | (missing) | (missing) | | (unavailable | 23:31 | [facility] | | | | + + + +------+ + + + + | Result panel 531 | + + + + + +------+ + + | | 2022-02-27 | [facility] | 46 | (missing) | (missing) | | (unavailable | 23:31 | [facility] | | | | + + + +------+ + + + + | Result panel 532 | + + + + + +------+ + + | | 2022-02-27 | [facility] | 62 | (missing) | (missing) | | (unavailable | 23:31 | [facility] | | | | + + + +------+ + + + + | Result panel 533 | + + + + + +--------+ + + | | 2022-02-27 | [facility] | 0.28 | (missing) | (missing) | | (unavailable | 23:31 | [facility] | | | | + + + +--------+ + + + + | Result panel 534 | + + + + + +--------+ + + | Fibrin | 2022-02-27 | [facility] | 0.28 | (missing) | (missing) | | D-dimer FEU | 23:31 | [facility] | | | | [Mass/volume | | Hospital | | | | | ] in | | | | | | | Platelet | | | | | | | poor plasma | | | | | | | by | | | | | | | Immunoassay | | | | | | + + + +--------+ + + + + | Result panel 535 | + + + + + +--------+ + + | | 2022-02-27 | [facility] | 0.28 | (missing) | (missing) | | (unavailable | 23:31 | [facility] | | | | + + + +--------+ + + + + | Result panel 536 | + + + + + +-------+ + + | | 2022-02-28 | [facility] | 9.3 | (missing) | (missing) | | (unavailable | 00:35 | [facility] | | | | + + + +-------+ + + + + | Result panel 537 | + + + + + +--------+ + + | | 2022-02-28 | [facility] | 4.45 | (missing) | (missing) | | (unavailable | 00:35 | [facility] | | | | + + + +--------+ + + + + | Result panel 538 | + + + + + +--------+ + + | | 2022-02-28 | [facility] | 11.1 | (missing) | (missing) | | (unavailable | 00:35 | [facility] | | | | + + + +--------+ + + + + | Result panel 539 | + + + + + +--------+ + + | | 2022-02-28 | [facility] | 33.5 | (missing) | (missing) | | (unavailable | 00:35 | [facility] | | | | + + + +--------+ + + + + | Result panel 540 | + + + + + +--------+ + + | | 2022-02-28 | [facility] | 75.4 | (missing) | (missing) | | (unavailable | 00:35 | [facility] | | | | + + + +--------+ + + + + | Result panel 541 | + + + + + +--------+ + + | | 2022-02-28 | [facility] | 24.9 | (missing) | (missing) | | (unavailable | 00:35 | [facility] | | | | + + + +--------+ + + + + | Result panel 542 | + + + + + +--------+ + + | | 2022-02-28 | [facility] | 33.0 | (missing) | (missing) | | (unavailable | 00:35 | [facility] | | | | + + + +--------+ + + + + | Result panel 543 | + + + + + +--------+ + + | | 2022-02-28 | [facility] | 16.5 | (missing) | (missing) | | (unavailable | 00:35 | [facility] | | | | + + + +--------+ + + + + | Result panel 544 | + + + + + +-------+ + + | | 2022-02-28 | [facility] | 290 | (missing) | (missing) | | (unavailable | 00:35 | [facility] | | | | + + + +-------+ + + + + | Result panel 545 | + + + + + +--------+ + + | | 2022-02-28 | [facility] | 71.3 | (missing) | (missing) | | (unavailable | 00:35 | [facility] | | | | + + + +--------+ + + + + | Result panel 546 | + + + + + +--------+ + + | | 2022-02-28 | [facility] | 21.5 | (missing) | (missing) | | (unavailable | 00:35 | [facility] | | | | + + + +--------+ + + + + | Result panel 547 | + + + + + +-------+ + + | | 2022-02-28 | [facility] | 5.6 | (missing) | (missing) | | (unavailable | 00:35 | [facility] | | | | + + + +-------+ + + + + | Result panel 548 | + + + + + +-------+ + + | | 2022-02-28 | [facility] | 1.0 | (missing) | (missing) | | (unavailable | 00:35 | [facility] | | | | + + + +-------+ + + + + | Result panel 549 | + + + + + +-------+ + + | | 2022-02-28 | [facility] | 0.6 | (missing) | (missing) | | (unavailable | 00:35 | [facility] | | | | + + + +-------+ + + + + | Result panel 550 | + + + + + +-------+ + + | | 2022-02-28 | [facility] | 6.2 | (missing) | (missing) | | (unavailable | 00:35 | [facility] | | | | + + + +-------+ + + + + | Result panel 551 | + + + + + +-------+ + + | | 2022-02-28 | [facility] | 6.7 | (missing) | (missing) | | (unavailable | 16:56 | [facility] | | | | + + + +-------+ + + + + | Result panel 552 | + + + + + +--------+ + + | | 2022-02-28 | [facility] | 4.45 | (missing) | (missing) | | (unavailable | 16:56 | [facility] | | | | + + + +--------+ + + + + | Result panel 553 | + + + + + +--------+ + + | | 2022-02-28 | [facility] | 11.2 | (missing) | (missing) | | (unavailable | 16:56 | [facility] | | | | + + + +--------+ + + + + | Result panel 554 | + + + + + +--------+ + + | | 2022-02-28 | [facility] | 33.6 | (missing) | (missing) | | (unavailable | 16:56 | [facility] | | | | + + + +--------+ + + + + | Result panel 555 | + + + + + +--------+ + + | | 2022-02-28 | [facility] | 75.5 | (missing) | (missing) | | (unavailable | 16:56 | [facility] | | | | + + + +--------+ + + + + | Result panel 556 | + + + + + +--------+ + + | | 2022-02-28 | [facility] | 25.1 | (missing) | (missing) | | (unavailable | 16:56 | [facility] | | | | + + + +--------+ + + + + | Result panel 557 | + + + + + +--------+ + + | | 2022-02-28 | [facility] | 33.3 | (missing) | (missing) | | (unavailable | 16:56 | [facility] | | | | + + + +--------+ + + + + | Result panel 558 | + + + + + +--------+ + + | | 2022-02-28 | [facility] | 16.1 | (missing) | (missing) | | (unavailable | 16:56 | [facility] | | | | + + + +--------+ + + + + | Result panel 559 | + + + + + +-------+ + + | | 2022-02-28 | [facility] | 291 | (missing) | (missing) | | (unavailable | 16:56 | [facility] | | | | + + + +-------+ + + + + | Result panel 560 | + + + + + +--------+ + + | | 2022-02-28 | [facility] | 65.2 | (missing) | (missing) | | (unavailable | 16:56 | [facility] | | | | + + + +--------+ + + + + | Result panel 561 | + + + + + +--------+ + + | | 2022-02-28 | [facility] | 26.3 | (missing) | (missing) | | (unavailable | 16:56 | [facility] | | | | + + + +--------+ + + + + | Result panel 562 | + + + + + +-------+ + + | | 2022-02-28 | [facility] | 5.9 | (missing) | (missing) | | (unavailable | 16:56 | [facility] | | | | + + + +-------+ + + + + | Result panel 563 | + + + + + +-------+ + + | | 2022-02-28 | [facility] | 1.6 | (missing) | (missing) | | (unavailable | 16:56 | [facility] | | | | + + + +-------+ + + + + | Result panel 564 | + + + + + +-------+ + + | | 2022-02-28 | [facility] | 1.0 | (missing) | (missing) | | (unavailable | 16:56 | [facility] | | | | + + + +-------+ + + + + | Result panel 565 | + + + + + +-------+---------+ + | | 2022-02-28 | [facility] | 148 | mg/dL | (missing) | | (unavailable | 16:56 | [facility] | | | | + + + +-------+---------+ + + + | Result panel 566 | + + + + + +------+---------+ + | | 2022-02-28 | [facility] | 23 | mg/dL | (missing) | | (unavailable | 16:56 | [facility] | | | | + + + +------+---------+ + + + | Result panel 567 | + + + + + +--------+---------+ + | | 2022-02-28 | [facility] | 0.85 | mg/dL | (missing) | | (unavailable | 16:56 | [facility] | | | | + + + +--------+---------+ + + + | Result panel 568 | + + + + + +------+ + + | | 2022-02-28 | [facility] | 87 | (missing) | (missing) | | (unavailable | 16:56 | [facility] | | | | + + + +------+ + + + + | Result panel 569 | + + + + + +---------+ + + | | 2022-02-28 | [facility] | 27.05 | (missing) | (missing) | | (unavailable | 16:56 | [facility] | | | | + + + +---------+ + + + + | Result panel 570 | + + + + + +-------+ + + | | 2022-02-28 | [facility] | 138 | (missing) | (missing) | | (unavailable | 16:56 | [facility] | | | | + + + +-------+ + + + + | Result panel 571 | + + + + + +-------+ + + | | 2022-02-28 | [facility] | 4.1 | (missing) | (missing) | | (unavailable | 16:56 | [facility] | | | | + + + +-------+ + + + + | Result panel 572 | + + + + + +-------+ + + | | 2022-02-28 | [facility] | 105 | (missing) | (missing) | | (unavailable | 16:56 | [facility] | | | | + + + +-------+ + + + + | Result panel 573 | + + + + + +------+ + + | | 2022-02-28 | [facility] | 22 | (missing) | (missing) | | (unavailable | 16:56 | [facility] | | | | + + + +------+ + + + + | Result panel 574 | + + + + + +--------+ + + | | 2022-02-28 | [facility] | 15.1 | (missing) | (missing) | | (unavailable | 16:56 | [facility] | | | | + + + +--------+ + + + + | Result panel 575 | + + + + + +-------+---------+ + | | 2022-02-28 | [facility] | 8.5 | mg/dL | (missing) | | (unavailable | 16:56 | [facility] | | | | + + + +-------+---------+ + + + | Result panel 576 | + + + + + +-------+---------+ + | | 2022-02-28 | [facility] | 1.5 | mg/dL | (missing) | | (unavailable | 16:56 | [facility] | | | | + + + +-------+---------+ + + + | Result panel 577 | + + + + + +-------+ + + | | 2022-02-28 | [facility] | 6.7 | (missing) | (missing) | | (unavailable | 16:56 | [facility] | | | | + + + +-------+ + + + + | Result panel 578 | + + + + + +-------+ + + | | 2022-02-28 | [facility] | 2.8 | (missing) | (missing) | | (unavailable | 16:56 | [facility] | | | | + + + +-------+ + + + + | Result panel 579 | + + + + + +-------+ + + | | 2022-02-28 | [facility] | 3.9 | (missing) | (missing) | | (unavailable | 16:56 | [facility] | | | | + + + +-------+ + + + + | Result panel 580 | + + + + + +--------+ + + | | 2022-02-28 | [facility] | 0.72 | (missing) | (missing) | | (unavailable | 16:56 | [facility] | | | | + + + +--------+ + + + + | Result panel 581 | + + + + + +------+ + + | | 2022-02-28 | [facility] | 26 | (missing) | (missing) | | (unavailable | 16:56 | [facility] | | | | + + + +------+ + + + + | Result panel 582 | + + + + + +------+ + + | | 2022-02-28 | [facility] | 40 | (missing) | (missing) | | (unavailable | 16:56 | [facility] | | | | + + + +------+ + + + + | Result panel 583 | + + + + + +------+ + + | | 2022-02-28 | [facility] | 55 | (missing) | (missing) | | (unavailable | 16:56 | [facility] | | | | + + + +------+ + + + + | Result panel 584 | + + + + + +-------+ + + | Blood | 2022-02-28 | [facility] | 6.7 | (missing) | (missing) | | leukocytes | 16:56 | [facility] | | | | automated | | [facility] | | | | | count | | | | | | | (number/volu | | | | | | | me) | | | | | | + + + +-------+ + + + + | Result panel 585 | + + + + + +--------+ + + | Blood | 2022-02-28 | [facility] | 4.45 | (missing) | (missing) | | erythrocytes | 16:56 | [facility] | | | | | count | | | | | | | (number/volu | | | | | | | me) | | | | | | + + + +--------+ + + + + | Result panel 586 | + + + + + +--------+ + + | Blood | 2022-02-28 | [facility] | 11.2 | (missing) | (missing) | | hemoglobin | 16:56 | [facility] | | | | measurement | | [facility] | | | | | (mass/volume | | | | | | | ) | | | | | | + + + +--------+ + + + + | Result panel 587 | + + + + + +--------+ + + | Automated | 2022-02-28 | [facility] | 33.6 | (missing) | (missing) | | blood | 16:56 | [facility] | | | | hematocrit | | [facility] | | | | + + + +--------+ + + + + | Result panel 588 | + + + + + +--------+ + + | Automated | 2022-02-28 | [facility] | 75.5 | (missing) | (missing) | | erythrocyte | 16:56 | [facility] | | | | | mean | | [facility] | | | | | corpuscular | | | | | | | volume | | | | | | + + + +--------+ + + + + | Result panel 589 | + + + + + +--------+ + + | Automated | 2022-02-28 | [facility] | 25.1 | (missing) | (missing) | | erythrocyte | 16:56 | [facility] | | | | | mean | | [facility] | | | | | corpuscular | | | | | | | hemoglobin | | | | | | | (mass per | | | | | | | erythrocyte) | | | | | | | | | | | | | + + + +--------+ + + + + | Result panel 590 | + + + + + +--------+ + + | Automated | 2022-02-28 | [facility] | 33.3 | (missing) | (missing) | | erythrocyte | 16:56 | [facility] | | | | | mean | | [facility] | | | | | corpuscular | | | | | | | hemoglobin | | | | | | | concentratio | | | | | | | n | | | | | | | measurement | | | | | | | (mass/volume | | | | | | | ) | | | | | | + + + +--------+ + + + + | Result panel 591 | + + + + + +--------+ + + | Automated | 2022-02-28 | [facility] | 16.1 | (missing) | (missing) | | erythrocyte | 16:56 | [facility] | | | | | distribution | | [facility] | | | | | width | | | | | | + + + +--------+ + + + + | Result panel 592 | + + + + + +-------+ + + | Automated | 2022-02-28 | [facility] | 291 | (missing) | (missing) | | blood | 16:56 | [facility] | | | | | platelet | | [facility] | | | | | count | | | | | | | (count/volum | | | | | | | e) | | | | | | + + + +-------+ + + + + | Result panel 593 | + + + + + +--------+ + + | Automated | 2022-02-28 | [facility] | 65.2 | (missing) | (missing) | | blood | 16:56 | [facility] | | | | | neutrophil | | Hospital | | | | | count as | | | | | | | percentage | | | | | | | of total | | | | | | | leukocytes | | | | | | + + + +--------+ + + + + | Result panel 594 | + + + + + +--------+ + + | Automated | 2022-02-28 | [facility] | 26.3 | (missing) | (missing) | | blood | 16:56 | [facility] | | | | | lymphocyte | | [facility] | | | | | count as | | | | | | | percentage | | | | | | | ot total | | | | | | | leukocytes | | | | | | + + + +--------+ + + + + | Result panel 595 | + + + + + +-------+ + + | Automated | 2022-02-28 | [facility] | 5.9 | (missing) | (missing) | | blood | 16:56 | [facility] | | | | | monocyte | | [facility] | | | | | count as | | | | | | | percentage | | | | | | | of total | | | | | | | leukocytes | | | | | | + + + +-------+ + + + + | Result panel 596 | + + + + + +-------+ + + | Automated | 2022-02-28 | [facility] | 1.6 | (missing) | (missing) | | blood | 16:56 | [facility] | | | | | eosinophil | | [facility] | | | | | count as | | | | | | | percentage | | | | | | | of total | | | | | | | leukocytes | | | | | | + + + +-------+ + + + + | Result panel 597 | + + + + + +-------+ + + | Automated | 2022-02-28 | [facility] | 1.0 | (missing) | (missing) | | blood | 16:56 | [facility] | | | | | basophil | | [facility] | | | | | count as | | | | | | | percentage | | | | | | | of total | | | | | | | leukocytes | | | | | | + + + +-------+ + + + + | Result panel 598 | + + + + + +-------+ + + | Serum or | 2022-02-28 | [facility] | 148 | (missing) | (missing) | | plasma | 16:56 | [facility] | | | | | glucose | | [facility] | | | | | measurement | | | | | | | (mass/volume | | | | | | | ) | | | | | | + + + +-------+ + + + + | Result panel 599 | + + + + + +------+ + + | Serum or | 2022-02-28 | [facility] | 23 | (missing) | (missing) | | plasma urea | 16:56 | [facility] | | | | | nitrogen | | [facility] | | | | | measurement | | | | | | | (mass/volume | | | | | | | ) | | | | | | + + + +------+ + + + + | Result panel 600 | + + + + + +--------+ + + | Serum or | 2022-02-28 | [facility] | 0.85 | (missing) | (missing) | | plasma | 16:56 | [facility] | | | | creatinine | | [facility] | | | | | measurement | | | | | | | (mass/volume | | | | | | | ) | | | | | | + + + +--------+ + + + + | Result panel 601 | + + + + + +------+ + + | Glomerular | 2022-02-28 | [facility] | 87 | (missing) | (missing) | | filtration | 16:56 | [facility] | | | | | rate/1.73 sq | | Hospital | | | | | M.predicted | | | | | | | [Volume | | | | | | | Rate/Area] | | | | | | | inSerum, | | | | | | | Plasma or | | | | | | | Blood by | | | | | | | Creatinine-b | | | | | | | ased formula | | | | | | | (CKD-EPI | | | | | | | 2020) | | | | | | + + + +------+ + + + + | Result panel 602 | + + + + + +---------+ + + | Serum or | 2022-02-28 | [facility] | 27.05 | (missing) | (missing) | | plasma urea | 16:56 | [facility] | | | | | nitrogen/cre | | Hospital | | | | | atinine mass | | | | | | | ratio | | | | | | + + + +---------+ + + + + | Result panel 603 | + + + + + +-------+ + + | Serum or | 2022-02-28 | [facility] | 138 | (missing) | (missing) | | plasma | 16:56 | [facility] | | | | | sodium | | [facility] | | | | | measurement | | | | | | | (moles/volum | | | | | | | e) | | | | | | + + + +-------+ + + + + | Result panel 604 | + + + + + +-------+ + + | Serum or | 2022-02-28 | [facility] | 4.1 | (missing) | (missing) | | plasma | 16:56 | [facility] | | | | | potassium | | [facility] | | | | | measurement | | | | | | | (moles/volum | | | | | | | e) | | | | | | + + + +-------+ + + + + | Result panel 605 | + + + + + +-------+ + + | Serum or | 2022-02-28 | [facility] | 105 | (missing) | (missing) | | plasma | 16:56 | [facility] | | | | | chloride | | [facility] | | | | | measurement | | | | | | | (moles/volum | | | | | | | e) | | | | | | + + + +-------+ + + + + | Result panel 606 | + + + + + +------+ + + | Serum or | 2022-02-28 | [facility] | 22 | (missing) | (missing) | | plasma | 16:56 | [facility] | | | | | carbon | | Hospital | | | | | dioxide, | | | | | | | total | | | | | | | measurement | | | | | | | (moles/volum | | | | | | | e) | | | | | | + + + +------+ + + + + | Result panel 607 | + + + + + +--------+ + + | Serum or | 2022-02-28 | [facility] | 15.1 | (missing) | (missing) | | plasma anion | 16:56 | [facility] | | | | | gap 4 | | [facility] | | | | + + + +--------+ + + + + | Result panel 608 | + + + + + +-------+ + + | Serum or | 2022-02-28 | [facility] | 8.5 | (missing) | (missing) | | plasma | 16:56 | [facility] | | | | | calcium | | [facility] | | | | | measurement | | | | | | | (mass/volume | | | | | | | ) | | | | | | + + + +-------+ + + + + | Result panel 609 | + + + + + +-------+ + + | Serum or | 2022-02-28 | [facility] | 1.5 | (missing) | (missing) | | plasma | 16:56 | [facility] | | | | | magnesium | | [facility] | | | | | measurement | | | | | | | (mass/volume | | | | | | | ) | | | | | | + + + +-------+ + + + + | Result panel 610 | + + + + + +-------+ + + | Serum or | 2022-02-28 | [facility] | 6.7 | (missing) | (missing) | | plasma | 16:56 | [facility] | | | | | protein | | [facility] | | | | | measurement | | | | | | | (mass/volume | | | | | | | ) | | | | | | + + + +-------+ + + + + | Result panel 611 | + + + + + +-------+ + + | Serum or | 2022-02-28 | [facility] | 2.8 | (missing) | (missing) | | plasma | 16:56 | [facility] | | | | | albumin | | [facility] | | | | | measurement | | | | | | | (mass/volume | | | | | | | ) | | | | | | + + + +-------+ + + + + | Result panel 612 | + + + + + +-------+ + + | Serum | 2022-02-28 | [facility] | 3.9 | (missing) | (missing) | | globulin | 16:56 | [facility] | | | | | measurement | | [facility] | | | | | (mass/volume | | | | | | | ) | | | | | | + + + +-------+ + + + + | Result panel 613 | + + + + + +--------+ + + | Serum or | 2022-02-28 | [facility] | 0.72 | (missing) | (missing) | | plasma | 16:56 | [facility] | | | | | albumin/glob | | [facility] | | | | | ulin mass | | | | | | | ratio | | | | | | + + + +--------+ + + + + | Result panel 614 | + + + + + +------+ + + | Serum or | 2022-02-28 | [facility] | 26 | (missing) | (missing) | | plasma | 16:56 | [facility] | | | | | aspartate | | Hospital | | | | | aminotransfe | | | | | | | rase | | | | | | | measurement | | | | | | | (enzymatic | | | | | | | activity/vol | | | | | | | ume) | | | | | | + + + +------+ + + + + | Result panel 615 | + + + + + +------+ + + | Serum or | 2022-02-28 | [facility] | 40 | (missing) | (missing) | | plasma | 16:56 | [facility] | | | | | alanine | | [facility] | | | | | aminotransfe | | | | | | | rase | | | | | | | measurement | | | | | | | (enzymatic | | | | | | | activity/vol | | | | | | | ume) | | | | | | + + + +------+ + + + + | Result panel 616 | + + + + + +------+ + + | Serum or | 2022-02-28 | [facility] | 55 | (missing) | (missing) | | plasma | 16:56 | [facility] | | | | | alkaline | | [facility] | | | | | phosphatase | | | | | | | measurement | | | | | | | (enzymatic | | | | | | | activity/vol | | | | | | | ume) | | | | | | + + + +------+ + + + + | Result panel 617 | + + + + + +-------+---------+ + | | 2022-02-28 | [facility] | 1.5 | mg/dL | (missing) | | (unavailable | 16:56 | [facility] ) | | [facility] | | | | + + + +-------+---------+ + + + | Result panel 618 | + + + + + +-------+ + + | Serum or | 2022-02-28 | [facility] | 1.5 | (missing) | (missing) | | plasma | 16:56 | [facility] | | | | | magnesium | | [facility] | | | | | measurement | | | | | | | (mass/volume | | | | | | | ) | | | | | | + + + +-------+ + + + + | Result panel 619 | + + + + + +-------+ + + | | 2022-02-28 | [facility] | 6.7 | (missing) | (missing) | | (unavailable | 16:56 | [facility] | | | | + + + +-------+ + + + + | Result panel 620 | + + + + + +--------+ + + | | 2022-02-28 | [facility] | 4.45 | (missing) | (missing) | | (unavailable | 16:56 | [facility] | | | | + + + +--------+ + + + + | Result panel 621 | + + + + + +--------+ + + | | 2022-02-28 | [facility] | 11.2 | (missing) | (missing) | | (unavailable | 16:56 | [facility] | | | | + + + +--------+ + + + + | Result panel 622 | + + + + + +--------+ + + | | 2022-02-28 | [facility] | 33.6 | (missing) | (missing) | | (unavailable | 16:56 | [facility] | | | | + + + +--------+ + + + + | Result panel 623 | + + + + + +--------+ + + | | 2022-02-28 | [facility] | 75.5 | (missing) | (missing) | | (unavailable | 16:56 | [facility] | | | | + + + +--------+ + + + + | Result panel 624 | + + + + + +--------+ + + | | 2022-02-28 | [facility] | 25.1 | (missing) | (missing) | | (unavailable | 16:56 | [facility] | | | | + + + +--------+ + + + + | Result panel 625 | + + + + + +--------+ + + | | 2022-02-28 | [facility] | 33.3 | (missing) | (missing) | | (unavailable | 16:56 | [facility] | | | | + + + +--------+ + + + + | Result panel 626 | + + + + + +--------+ + + | | 2022-02-28 | [facility] | 16.1 | (missing) | (missing) | | (unavailable | 16:56 | [facility] | | | | + + + +--------+ + + + + | Result panel 627 | + + + + + +-------+ + + | | 2022-02-28 | [facility] | 291 | (missing) | (missing) | | (unavailable | 16:56 | [facility] | | | | + + + +-------+ + + + + | Result panel 628 | + + + + + +--------+ + + | | 2022-02-28 | [facility] | 65.2 | (missing) | (missing) | | (unavailable | 16:56 | [facility] | | | | + + + +--------+ + + + + | Result panel 629 | + + + + + +--------+ + + | | 2022-02-28 | [facility] | 26.3 | (missing) | (missing) | | (unavailable | 16:56 | [facility] | | | | + + + +--------+ + + + + | Result panel 630 | + + + + + +-------+ + + | | 2022-02-28 | [facility] | 5.9 | (missing) | (missing) | | (unavailable | 16:56 | [facility] | | | | + + + +-------+ + + + + | Result panel 631 | + + + + + +-------+ + + | | 2022-02-28 | [facility] | 1.6 | (missing) | (missing) | | (unavailable | 16:56 | [facility] | | | | + + + +-------+ + + + + | Result panel 632 | + + + + + +-------+ + + | | 2022-02-28 | [facility] | 1.0 | (missing) | (missing) | | (unavailable | 16:56 | [facility] | | | | + + + +-------+ + + + + | Result panel 633 | + + + + + +-------+---------+ + | | 2022-02-28 | [facility] | 148 | mg/dL | (missing) | | (unavailable | 16:56 | [facility] | | | | + + + +-------+---------+ + + + | Result panel 634 | + + + + + +------+---------+ + | | 2022-02-28 | [facility] | 23 | mg/dL | (missing) | | (unavailable | 16:56 | [facility] | | | | + + + +------+---------+ + + + | Result panel 635 | + + + + + +--------+---------+ + | | 2022-02-28 | [facility] | 0.85 | mg/dL | (missing) | | (unavailable | 16:56 | [facility] | | | | + + + +--------+---------+ + + + | Result panel 636 | + + + + + +------+ + + | | 2022-02-28 | [facility] | 87 | (missing) | (missing) | | (unavailable | 16:56 | [facility] | | | | + + + +------+ + + + + | Result panel 637 | + + + + + +---------+ + + | | 2022-02-28 | [facility] | 27.05 | (missing) | (missing) | | (unavailable | 16:56 | [facility] | | | | + + + +---------+ + + + + | Result panel 638 | + + + + + +-------+ + + | | 2022-02-28 | [facility] | 138 | (missing) | (missing) | | (unavailable | 16:56 | [facility] | | | | + + + +-------+ + + + + | Result panel 639 | + + + + + +-------+ + + | | 2022-02-28 | [facility] | 4.1 | (missing) | (missing) | | (unavailable | 16:56 | [facility] | | | | + + + +-------+ + + + + | Result panel 640 | + + + + + +-------+ + + | | 2022-02-28 | [facility] | 105 | (missing) | (missing) | | (unavailable | 16:56 | [facility] | | | | + + + +-------+ + + + + | Result panel 641 | + + + + + +------+ + + | | 2022-02-28 | [facility] | 22 | (missing) | (missing) | | (unavailable | 16:56 | [facility] | | | | + + + +------+ + + + + | Result panel 642 | + + + + + +--------+ + + | | 2022-02-28 | [facility] | 15.1 | (missing) | (missing) | | (unavailable | 16:56 | [facility] | | | | + + + +--------+ + + + + | Result panel 643 | + + + + + +-------+---------+ + | | 2022-02-28 | [facility] | 8.5 | mg/dL | (missing) | | (unavailable | 16:56 | [facility] | | | | + + + +-------+---------+ + + + | Result panel 644 | + + + + + +-------+---------+ + | | 2022-02-28 | [facility] | 1.5 | mg/dL | (missing) | | (unavailable | 16:56 | [facility] | | | | + + + +-------+---------+ + + + | Result panel 645 | + + + + + +-------+ + + | | 2022-02-28 | [facility] | 6.7 | (missing) | (missing) | | (unavailable | 16:56 | [facility] | | | | + + + +-------+ + + + + | Result panel 646 | + + + + + +-------+ + + | | 2022-02-28 | [facility] | 2.8 | (missing) | (missing) | | (unavailable | 16:56 | [facility] | | | | + + + +-------+ + + + + | Result panel 647 | + + + + + +-------+ + + | | 2022-02-28 | [facility] | 3.9 | (missing) | (missing) | | (unavailable | 16:56 | [facility] | | | | + + + +-------+ + + + + | Result panel 648 | + + + + + +--------+ + + | | 2022-02-28 | [facility] | 0.72 | (missing) | (missing) | | (unavailable | 16:56 | [facility] | | | | + + + +--------+ + + + + | Result panel 649 | + + + + + +------+ + + | | 2022-02-28 | [facility] | 26 | (missing) | (missing) | | (unavailable | 16:56 | [facility] | | | | + + + +------+ + + + + | Result panel 650 | + + + + + +------+ + + | | 2022-02-28 | [facility] | 40 | (missing) | (missing) | | (unavailable | 16:56 | [facility] | | | | + + + +------+ + + + + | Result panel 651 | + + + + + +------+ + + | | 2022-02-28 | [facility] | 55 | (missing) | (missing) | | (unavailable | 16:56 | [facility] | | | | + + + +------+ + + + + | Result panel 652 | + + + + + +-------+ + + | | 2022-02-28 | [facility] | 7.5 | (missing) | (missing) | | (unavailable | 18:31 | [facility] | | | | + + + +-------+ + + + + | Result panel 653 | + + + + + +-------+ + + | Serum or | 2022-02-28 | [facility] | 7.5 | (missing) | (missing) | | plasma | 18:31 | [facility] | | cardiac | | [facility] | | | | | troponin I | | | | | | | measurement | | | | | | | by high | | | | | | | senstivity | | | | | | | method | | | | | | | (mass/volume | | | | | | | ) | | | | | | + + + +-------+ + + + + | Result panel 654 | + + + + + +-------+ + + | | 2022-02-28 | [facility] | 7.5 | (missing) | (missing) | | (unavailable | 18:31 | [facility] | | | | + + + +-------+ + + + + | Result panel 655 | + + + + + +-------+ + + | Serum or | 2022-02-28 | [facility] | 7.5 | (missing) | (missing) | | plasma | 18:31 | [facility] | [facility] | | | | | troponin I | | | | | | | measurement | | | | | | | by high | | | | | | | senstivity | | | | | | | method | | | | | | | (mass/volume | | | | | | | ) | | | | | | + + + +-------+ + + + + | Result panel 656 | + + + + + +-------+ + + | | 2022-02-28 | [facility] | 7.5 | (missing) | (missing) | | (unavailable | 18:31 | [facility] | | | | + + + +-------+ + + + + | Result panel 657 | + + + + + +-------+ + + | | 2022-03-17 | [facility] | 7.2 | (missing) | (missing) | | (unavailable | 15:04 | [facility] | | | | + + + +-------+ + + + + | Result panel 658 | + + + + + +--------+ + + | | 2022-03-17 | [facility] | 4.04 | (missing) | (missing) | | (unavailable | 15:04 | [facility] | | | | + + + +--------+ + + + + | Result panel 659 | + + + + + +--------+ + + | | 2022-03-17 | [facility] | 10.3 | (missing) | (missing) | | (unavailable | 15:04 | [facility] | | | | + + + +--------+ + + + + | Result panel 660 | + + + + + +--------+ + + | | 2022-03-17 | [facility] | 31.0 | (missing) | (missing) | | (unavailable | 15:04 | [facility] | | | | + + + +--------+ + + + + | Result panel 661 | + + + + + +--------+ + + | | 2022-03-17 | [facility] | 76.6 | (missing) | (missing) | | (unavailable | 15:04 | [facility] | | | | + + + +--------+ + + + + | Result panel 662 | + + + + + +--------+ + + | | 2022-03-17 | [facility] | 25.5 | (missing) | (missing) | | (unavailable | 15:04 | [facility] | | | | + + + +--------+ + + + + | Result panel 663 | + + + + + +--------+ + + | | 2022-03-17 | [facility] | 33.3 | (missing) | (missing) | | (unavailable | 15:04 | [facility] | | | | + + + +--------+ + + + + | Result panel 664 | + + + + + +--------+ + + | | 2022-03-17 | [facility] | 16.4 | (missing) | (missing) | | (unavailable | 15:04 | [facility] | | | | + + + +--------+ + + + + | Result panel 665 | + + + + + +-------+ + + | | 2022-03-17 | [facility] | 259 | (missing) | (missing) | | (unavailable | 15:04 | [facility] | | | | + + + +-------+ + + + + | Result panel 666 | + + + + + +--------+ + + | | 2022-03-17 | [facility] | 61.5 | (missing) | (missing) | | (unavailable | 15:04 | [facility] | | | | + + + +--------+ + + + + | Result panel 667 | + + + + + +--------+ + + | | 2022-03-17 | [facility] | 29.3 | (missing) | (missing) | | (unavailable | 15:04 | [facility] | | | | + + + +--------+ + + + + | Result panel 668 | + + + + + +-------+ + + | | 2022-03-17 | [facility] | 6.2 | (missing) | (missing) | | (unavailable | 15:04 | [facility] | | | | + + + +-------+ + + + + | Result panel 669 | + + + + + +-------+ + + | | 2022-03-17 | [facility] | 2.4 | (missing) | (missing) | | (unavailable | 15:04 | [facility] | | | | + + + +-------+ + + + + | Result panel 670 | + + + + + +-------+ + + | | 2022-03-17 | [facility] | 0.6 | (missing) | (missing) | | (unavailable | 15:04 | [facility] | | | | + + + +-------+ + + + + | Result panel 671 | + + + + + +-------+---------+ + | | 2022-03-17 | [facility] | 251 | mg/dL | (missing) | | (unavailable | 15:04 | [facility] | | | | + + + +-------+---------+ + + + | Result panel 672 | + + + + + +------+---------+ + | | 2022-03-17 | [facility] | 23 | mg/dL | (missing) | | (unavailable | 15:04 | [facility] | | | | + + + +------+---------+ + + + | Result panel 673 | + + + + + +--------+---------+ + | | 2022-03-17 | [facility] | 0.76 | mg/dL | (missing) | | (unavailable | 15:04 | [facility] | | | | + + + +--------+---------+ + + + | Result panel 674 | + + + + + +------+ + + | | 2022-03-17 | [facility] | 99 | (missing) | (missing) | | (unavailable | 15:04 | [facility] | | | | + + + +------+ + + + + | Result panel 675 | + + + + + +---------+ + + | | 2022-03-17 | [facility] | 30.26 | (missing) | (missing) | | (unavailable | 15:04 | [facility] | | | | + + + +---------+ + + + + | Result panel 676 | + + + + + +-------+ + + | | 2022-03-17 | [facility] | 135 | (missing) | (missing) | | (unavailable | 15:04 | [facility] | | | | + + + +-------+ + + + + | Result panel 677 | + + + + + +-------+ + + | | 2022-03-17 | [facility] | 3.7 | (missing) | (missing) | | (unavailable | 15:04 | [facility] | | | | + + + +-------+ + + + + | Result panel 678 | + + + + + +-------+ + + | | 2022-03-17 | [facility] | 103 | (missing) | (missing) | | (unavailable | 15:04 | [facility] | | | | + + + +-------+ + + + + | Result panel 679 | + + + + + +------+ + + | | 2022-03-17 | [facility] | 23 | (missing) | (missing) | | (unavailable | 15:04 | [facility] | | | | + + + +------+ + + + + | Result panel 680 | + + + + + +--------+ + + | | 2022-03-17 | [facility] | 12.7 | (missing) | (missing) | | (unavailable | 15:04 | [facility] | | | | + + + +--------+ + + + + | Result panel 681 | + + + + + +-------+---------+ + | | 2022-03-17 | [facility] | 8.1 | mg/dL | (missing) | | (unavailable | 15:04 | [facility] | | | | + + + +-------+---------+ + + + | Result panel 682 | + + + + + +-------+ + + | | 2022-03-17 | [facility] | 6.5 | (missing) | (missing) | | (unavailable | 15:04 | [facility] | | | | + + + +-------+ + + + + | Result panel 683 | + + + + + +-------+ + + | | 2022-03-17 | [facility] | 2.6 | (missing) | (missing) | | (unavailable | 15:04 | [facility] | | | | + + + +-------+ + + + + | Result panel 684 | + + + + + +-------+ + + | | 2022-03-17 | [facility] | 3.9 | (missing) | (missing) | | (unavailable | 15:04 | [facility] | | | | + + + +-------+ + + + + | Result panel 685 | + + + + + +--------+ + + | | 2022-03-17 | [facility] | 0.67 | (missing) | (missing) | | (unavailable | 15:04 | [facility] | | | | + + + +--------+ + + + + | Result panel 686 | + + + + + +-------+ + + | | 2022-03-17 | [facility] | 1.0 | (missing) | (missing) | | (unavailable | 15:04 | [facility] | | | | + + + +-------+ + + + + | Result panel 687 | + + + + + +------+ + + | | 2022-03-17 | [facility] | 14 | (missing) | (missing) | | (unavailable | 15:04 | [facility] | | | | + + + +------+ + + + + | Result panel 688 | + + + + + +------+ + + | | 2022-03-17 | [facility] | 23 | (missing) | (missing) | | (unavailable | 15:04 | [facility] | | | | + + + +------+ + + + + | Result panel 689 | + + + + + +------+ + + | | 2022-03-17 | [facility] | 67 | (missing) | (missing) | | (unavailable | 15:04 | [facility] | | | | + + + +------+ + + + + | Result panel 690 | + + + + + +-------+ + + | | 2022-03-25 | [facility] | 101 | (missing) | (missing) | | (unavailable | 16:07 | [facility] | | | | + + + +-------+ + + + + | Result panel 691 | + + + + + +------+ + + | | 2022-03-25 | [facility] | 26 | (missing) | (missing) | | (unavailable | 16:07 | [facility] | | | | + + + +------+ + + + + | Result panel 692 | + + + + + +--------+ + + | | 2022-03-25 | [facility] | 13.2 | (missing) | (missing) | | (unavailable | 16:07 | [facility] | | | | + + + +--------+ + + + + | Result panel 693 | + + + + + +-------+---------+ + | | 2022-03-25 | [facility] | 8.4 | mg/dL | (missing) | | (unavailable | 16:07 | [facility] | | | | + + + +-------+---------+ + + + | Result panel 694 | + + + + + +-------+---------+ + | | 2022-03-25 | [facility] | 1.7 | mg/dL | (missing) | | (unavailable | 16:07 | [facility] | | | | + + + +-------+---------+ + + + | Result panel 695 | + + + + + +-------+ + + | | 2022-03-25 | [facility] | 7.4 | (missing) | (missing) | | (unavailable | 16:07 | [facility] | | | | + + + +-------+ + + + + | Result panel 696 | + + + + + +-------+ + + | | 2022-03-25 | [facility] | 3.1 | (missing) | (missing) | | (unavailable | 16:07 | [facility] | | | | + + + +-------+ + + + + | Result panel 697 | + + + + + +-------+ + + | | 2022-03-25 | [facility] | 4.3 | (missing) | (missing) | | (unavailable | 16:07 | [facility] | | | | + + + +-------+ + + + + | Result panel 698 | + + + + + +--------+ + + | | 2022-03-25 | [facility] | 0.72 | (missing) | (missing) | | (unavailable | 16:07 | [facility] | | | | + + + +--------+ + + + + | Result panel 699 | + + + + + +-------+ + + | | 2022-03-25 | [facility] | 1.7 | (missing) | (missing) | | (unavailable | 16:07 | [facility] | | | | + + + +-------+ + + + + | Result panel 700 | + + + + + +------+ + + | | 2022-03-25 | [facility] | 22 | (missing) | (missing) | | (unavailable | 16:07 | [facility] | | | | + + + +------+ + + + + | Result panel 701 | + + + + + +------+ + + | | 2022-03-25 | [facility] | 28 | (missing) | (missing) | | (unavailable | 16:07 | [facility] | | | | + + + +------+ + + + + | Result panel 702 | + + + + + +------+ + + | | 2022-03-25 | [facility] | 68 | (missing) | (missing) | | (unavailable | 16:07 | [facility] | | | | + + + +------+ + + + + | Result panel 703 | + + + + + +-------+ + + | | 2022-03-25 | [facility] | 9.9 | (missing) | (missing) | | (unavailable | 16:07 | [facility] | | | | + + + +-------+ + + + + | Result panel 704 | + + + + + + + + + | | 2022-03-25 | [facility] | NEGATIVE | (missing) | (missing) | | (unavailable | 16:07 | [facility] | | | | + + + + + + + + + | Result panel 705 | + + + + + + + + + | Serum or | 2022-03-25 | [facility] | NEGATIVE | (missing) | (missing) | | plasma | 16:07 | [facility] | | | | | tropin | | | | | | | ( | | | | | | | test) | | | | | | | detection | | | | | | + + + + + + + + + | Result panel 706 | + + + + + + + + + | | 2022-03-25 | [facility] | NEGATIVE | (missing) | (missing) | | (unavailable | 16:07 | [facility] | | | | + + + + + + + + + | Result panel 707 | + + + + + + + + + | | 2022-03-25 | [facility] | NEGATIVE | (missing) | (missing) | | (unavailable | 16:07 | [facility] | | | | + + + + + + + + + | Result panel 708 | + + + + + + + + + | Serum or | 2022-03-25 | [facility] | NEGATIVE | (missing) | (missing) | | plasma | 16:07 | [facility] | | | | | tropin | | | | | | | ( | | | | | | | test) | | | | | | | detection | | | | | | + + + + + + + + + | Result panel 709 | + + + + + + + + + | | 2022-03-25 | [facility] | NEGATIVE | (missing) | (missing) | | (unavailable | 16:07 | [facility] | | | | + + + + + + + + + | Result panel 710 | + + + + + + + + + | Serum or | 2022-03-25 | [facility] | NEGATIVE | (missing) | (missing) | | plasma | 16:07 | [facility] | | | | | tropin | | | | | | | ( | | | | | | | test) | | | | | | | detection | | | | | | + + + + + + + + + | Result panel 711 | + + + + + + + + + | Serum or | 2022-03-25 | [facility] | NEGATIVE | (missing) | (missing) | | plasma | 16:07 | [facility] | | | | | tropin | | | | | | | ( | | | | | | | test) | | | | | | | detection | | | | | | + + + + + + + + + | Result panel 712 | + + + + + + + + + | | 2022-03-25 | [facility] | NEGATIVE | (missing) | (missing) | | (unavailable | 16:07 | [facility] | | | | + + + + + + + + + | Result panel 713 | + + + + + + + + + | | 2022-03-25 | [facility] | NEGATIVE | (missing) | (missing) | | (unavailable | 16:07 | [facility] | | | | + + + + + + + + + | Result panel 714 | + + + + + + + + + | Serum or | 2022-03-25 | [facility] | NEGATIVE | (missing) | (missing) | | plasma | 16:07 | [facility] | | | | | tropin | | | | | | | ( | | | | | | | test) | | | | | | | detection | | | | | | + + + + + + + + + | Result panel 715 | + + + + + + + + + | Serum or | 2022-03-25 | [facility] | NEGATIVE | (missing) | (missing) | | plasma | 16:07 | [facility] | | | | | tropin | | | | | | | ( | | | | | | | test) | | | | | | | detection | | | | | | + + + + + + + + + | Result panel 716 | + + + + + + + + + | | 2022-03-25 | [facility] | NEGATIVE | (missing) | (missing) | | (unavailable | 16:07 | [facility] | | | | + + + + + + + + + | Result panel 717 | + + + + + +-------+ + + | | 2022-03-25 | [facility] | 9.4 | (missing) | (missing) | | (unavailable | 16:07 | [facility] | | | | + + + +-------+ + + + + | Result panel 718 | + + + + + +--------+ + + | | 2022-03-25 | [facility] | 4.08 | (missing) | (missing) | | (unavailable | 16:07 | [facility] | | | | + + + +--------+ + + + + | Result panel 719 | + + + + + +--------+ + + | | 2022-03-25 | [facility] | 10.2 | (missing) | (missing) | | (unavailable | 16:07 | [facility] | | | | + + + +--------+ + + + + | Result panel 720 | + + + + + +--------+ + + | | 2022-03-25 | [facility] | 31.6 | (missing) | (missing) | | (unavailable | 16:07 | [facility] | | | | + + + +--------+ + + + + | Result panel 721 | + + + + + +--------+ + + | | 2022-03-25 | [facility] | 77.4 | (missing) | (missing) | | (unavailable | 16:07 | [facility] | | | | + + + +--------+ + + + + | Result panel 722 | + + + + + +--------+ + + | | 2022-03-25 | [facility] | 25.1 | (missing) | (missing) | | (unavailable | 16:07 | [facility] | | | | + + + +--------+ + + + + | Result panel 723 | + + + + + +--------+ + + | | 2022-03-25 | [facility] | 32.4 | (missing) | (missing) | | (unavailable | 16:07 | [facility] | | | | + + + +--------+ + + + + | Result panel 724 | + + + + + +--------+ + + | | 2022-03-25 | [facility] | 16.5 | (missing) | (missing) | | (unavailable | 16:07 | [facility] | | | | + + + +--------+ + + + + | Result panel 725 | + + + + + +-------+ + + | | 2022-03-25 | [facility] | 313 | (missing) | (missing) | | (unavailable | 16:07 | [facility] | | | | + + + +-------+ + + + + | Result panel 726 | + + + + + +--------+ + + | | 2022-03-25 | [facility] | 67.8 | (missing) | (missing) | | (unavailable | 16:07 | [facility] | | | | + + + +--------+ + + + + | Result panel 727 | + + + + + +--------+ + + | | 2022-03-25 | [facility] | 25.3 | (missing) | (missing) | | (unavailable | 16:07 | [facility] | | | | + + + +--------+ + + + + | Result panel 728 | + + + + + +-------+ + + | | 2022-03-25 | [facility] | 4.5 | (missing) | (missing) | | (unavailable | 16:07 | [facility] | | | | + + + +-------+ + + + + | Result panel 729 | + + + + + +-------+ + + | | 2022-03-25 | [facility] | 2.0 | (missing) | (missing) | | (unavailable | 16:07 | [facility] | | | | + + + +-------+ + + + + | Result panel 730 | + + + + + +-------+ + + | | 2022-03-25 | [facility] | 0.4 | (missing) | (missing) | | (unavailable | 16:07 | [facility] | | | | + + + +-------+ + + + + | Result panel 731 | + + + + + +-------+---------+ + | | 2022-03-25 | [facility] | 219 | mg/dL | (missing) | | (unavailable | 16:07 | [facility] | | | | + + + +-------+---------+ + + + | Result panel 732 | + + + + + +------+---------+ + | | 2022-03-25 | [facility] | 27 | mg/dL | (missing) | | (unavailable | 16:07 | [facility] | | | | + + + +------+---------+ + + + | Result panel 733 | + + + + + +--------+---------+ + | | 2022-03-25 | [facility] | 0.90 | mg/dL | (missing) | | (unavailable | 16:07 | [facility] | | | | + + + +--------+---------+ + + + | Result panel 734 | + + + + + +------+ + + | | 2022-03-25 | [facility] | 81 | (missing) | (missing) | | (unavailable | 16:07 | [facility] | | | | + + + +------+ + + + + | Result panel 735 | + + + + + +---------+ + + | | 2022-03-25 | [facility] | 30.00 | (missing) | (missing) | | (unavailable | 16:07 | [facility] | | | | + + + +---------+ + + + + | Result panel 736 | + + + + + +-------+ + + | | 2022-03-25 | [facility] | 136 | (missing) | (missing) | | (unavailable | 16:07 | [facility] | | | | + + + +-------+ + + + + | Result panel 737 | + + + + + +-------+ + + | | 2022-03-25 | [facility] | 4.2 | (missing) | (missing) | | (unavailable | 16:07 | [facility] | | | | + + + +-------+ + + + + | Result panel 738 | + + + + + + + + + | | 2022-03-26 | [facility] | NEGATIVE | (missing) | (missing) | | (unavailable | 21:50 | [facility] | | | | + + + + + + + + + | Result panel 739 | + + + + + + + + + | | 2022-03-26 | [facility] | NEGATIVE | (missing) | (missing) | | (unavailable | 21:50 | [facility] | | | | + + + + + + + + + | Result panel 740 | + + + + + + + + + | | 2022-03-26 | [facility] | NEGATIVE | (missing) | (missing) | | (unavailable | 21:50 | [facility] | | | | + + + + + + + + + | Result panel 741 | + + + + + + + + + | | 2022-03-26 | [facility] | NEGATIVE | (missing) | (missing) | | (unavailable | 21:50 | [facility] | | | | + + + + + + + + + | Result panel 742 | + + + + + + + + + | Respiratory | 2022-03-26 | [facility] | NEGATIVE | (missing) | (missing) | | specimen | 21:50 | [facility] | | | | 2019 novel | | [facility] | | | | | coronavirus | | | | | | | RNA | | | | | | | detection | | | | | | + + + + + + + + + | Result panel 743 | + + + + + + + + + | Influenza | 2022-03-26 | [facility] | NEGATIVE | (missing) | (missing) | | virus A RNA | 21:50 | [facility] | [facility] | | | | | in | | | | | | | Respiratory | | | | | | | specimen by | | | | | | | [facility] | | | | | | | withprobe | | | | | | | detection | | | | | | + + + + + + + + + | Result panel 744 | + + + + + + + + + | Influenza | 2022-03-26 | [facility] | NEGATIVE | (missing) | (missing) | | virus B RNA | 21:50 | [facility] | [facility] | | | | | in | | | | | | | Respiratory | | | | | | | specimen by | | | | | | | [facility] | | | | | | | withprobe | | | | | | | detection | | | | | | + + + + + + + + + | Result panel 745 | + + + + + + + + + | Respiratory | 2022-03-26 | [facility] | NEGATIVE | (missing) | (missing) | | syncytial | 21:50 | [facility] | | | | | virus (RSV) | | [facility] | | | | | RNA | | | | | | | detection by | | | | | | | probe and | | | | | | | target | | | | | | | amplificatio | | | | | | | n method in | | | | | | | culture | | | | | | | isolate | | | | | | + + + + + + + + + | Result panel 746 | + + + + + + + + + | | 2022-03-26 | [facility] | NEGATIVE | (missing) | (missing) | | (unavailable | 21:50 | [facility] | | | | + + + + + + + + + | Result panel 747 | + + + + + + + + + | | 2022-03-26 | [facility] | NEGATIVE | (missing) | (missing) | | (unavailable | 21:50 | [facility] | | | | + + + + + + + + + | Result panel 748 | + + + + + + + + + | | 2022-03-26 | [facility] | NEGATIVE | (missing) | (missing) | | (unavailable | 21:50 | [facility] | | | | + + + + + + + + + | Result panel 749 | + + + + + + + + + | | 2022-03-26 | [facility] | NEGATIVE | (missing) | (missing) | | (unavailable | 21:50 | [facility] | | | | + + + + + + + + + | Result panel 750 | + + + + + + + + + | | 2022-03-26 | [facility] | NEGATIVE | (missing) | (missing) | | (unavailable | 21:50 | [facility] | | | | + + + + + + + + + | Result panel 751 | + + + + + + + + + | | 2022-03-26 | [facility] | NEGATIVE | (missing) | (missing) | | (unavailable | 21:50 | [facility] | | | | + + + + + + + + + | Result panel 752 | + + + + + + + + + | | 2022-03-26 | [facility] | NEGATIVE | (missing) | (missing) | | (unavailable | 21:50 | [facility] | | | | + + + + + + + + + | Result panel 753 | + + + + + + + + + | | 2022-03-26 | [facility] | NEGATIVE | (missing) | (missing) | | (unavailable | 21:50 | [facility] | | | | + + + + + + + + + | Result panel 754 | + + + + + + + + + | Respiratory | 2022-03-26 | [facility] | NEGATIVE | (missing) | (missing) | | specimen | 21:50 | [facility] | | | | | 2019 novel | | [facility] | | | | | coronavirus | | | | | | | RNA | | | | | | | detection | | | | | | + + + + + + + + + | Result panel 755 | + + + + + + + + + | Influenza | 2022-03-26 | [facility] | NEGATIVE | (missing) | (missing) | | virus A RNA | 21:50 | [facility] | [facility] | | | | | in | | | | | | | Respiratory | | | | | | | specimen by | | | | | | | [facility] | | | | | | | withprobe | | | | | | | detection | | | | | | + + + + + + + + + | Result panel 756 | + + + + + + + + + | Influenza | 2022-03-26 | [facility] | NEGATIVE | (missing) | (missing) | | virus B RNA | 21:50 | [facility] | [facility] | | | | | in | | | | | | | Respiratory | | | | | | | specimen by | | | | | | | [facility] | | | | | | | withprobe | | | | | | | detection | | | | | | + + + + + + + + + | Result panel 757 | + + + + + + + + + | Respiratory | 2022-03-26 | [facility] | NEGATIVE | (missing) | (missing) | | syncytial | 21:50 | [facility] | | | | | virus (RSV) | | [facility] | | | | | RNA | | | | | | | detection by | | | | | | | probe and | | | | | | | target | | | | | | | amplificatio | | | | | | | n method in | | | | | | | culture | | | | | | | isolate | | | | | | + + + + + + + + + | Result panel 758 | + + + + + + + + + | Respiratory | 2022-03-26 | [facility] | NEGATIVE | (missing) | (missing) | | specimen | 21:50 | [facility] | | | | | 2019 novel | | [facility] | | | | | coronavirus | | | | | | | RNA | | | | | | | detection | | | | | | + + + + + + + + + | Result panel 759 | + + + + + + + + + | Influenza | 2022-03-26 | [facility] | NEGATIVE | (missing) | (missing) | | virus A RNA | 21:50 | [facility] | [facility] | | | | | in | | | | | | | Respiratory | | | | | | | specimen by | | | | | | | [facility] | | | | | | | withprobe | | | | | | | detection | | | | | | + + + + + + + + + | Result panel 760 | + + + + + + + + + | Influenza | 2022-03-26 | [facility] | NEGATIVE | (missing) | (missing) | | virus B RNA | 21:50 | [facility] | [facility] | | | | | in | | | | | | | Respiratory | | | | | | | specimen by | | | | | | | [facility] | | | | | | | withprobe | | | | | | | detection | | | | | | + + + + + + + + + | Result panel 761 | + + + + + + + + + | Respiratory | 2022-03-26 | [facility] | NEGATIVE | (missing) | (missing) | | syncytial | 21:50 | [facility] | | | | | virus (RSV) | | [facility] | | | | | RNA | | | | | | | detection by | | | | | | | probe and | | | | | | | target | | | | | | | amplificatio | | | | | | | n method in | | | | | | | culture | | | | | | | isolate | | | | | | + + + + + + + + + | Result panel 762 | + + + + + + + + + | | 2022-03-26 | [facility] | NEGATIVE | (missing) | (missing) | | (unavailable | 21:50 | [facility] | | | | + + + + + + + + + | Result panel 763 | + + + + + + + + + | | 2022-03-26 | [facility] | NEGATIVE | (missing) | (missing) | | (unavailable | 21:50 | [facility] | | | | + + + + + + + + + | Result panel 764 | + + + + + + + + + | | 2022-03-26 | [facility] | NEGATIVE | (missing) | (missing) | | (unavailable | 21:50 | [facility] | | | | + + + + + + + + + | Result panel 765 | + + + + + + + + + | | 2022-03-26 | [facility] | NEGATIVE | (missing) | (missing) | | (unavailable | 21:50 | [facility] | | | | + + + + + + + + + | Result panel 766 | + + + + + + + + + | | 2022-03-26 | [facility] | NEGATIVE | (missing) | (missing) | | (unavailable | 21:50 | [facility] | | | | + + + + + + + + + | Result panel 767 | + + + + + + + + + | | 2022-03-26 | [facility] | NEGATIVE | (missing) | (missing) | | (unavailable | 21:50 | [facility] | | | | + + + + + + + + + | Result panel 768 | + + + + + + + + + | | 2022-03-26 | [facility] | NEGATIVE | (missing) | (missing) | | (unavailable | 21:50 | [facility] | | | | + + + + + + + + + | Result panel 769 | + + + + + + + + + | | 2022-03-26 | [facility] | NEGATIVE | (missing) | (missing) | | (unavailable | 21:50 | [facility] | | | | + + + + + + + + + | Result panel 770 | + + + + + + + + + | Respiratory | 2022-03-26 | [facility] | NEGATIVE | (missing) | (missing) | | specimen | 21:50 | [facility] | | | | | 2019 novel | | [facility] | | | | | coronavirus | | | | | | | RNA | | | | | | | detection | | | | | | + + + + + + + + + | Result panel 771 | + + + + + + + + + | Influenza | 2022-03-26 | [facility] | NEGATIVE | (missing) | (missing) | | virus A RNA | 21:50 | [facility] | [facility] | | | | | in | | | | | | | Respiratory | | | | | | | specimen by | | | | | | | [facility] | | | | | | | withprobe | | | | | | | detection | | | | | | + + + + + + + + + | Result panel 772 | + + + + + + + + + | Influenza | 2022-03-26 | [facility] | NEGATIVE | (missing) | (missing) | | virus B RNA | 21:50 | [facility] | [facility] | | | | | in | | | | | | | Respiratory | | | | | | | specimen by | | | | | | | [facility] | | | | | | | withprobe | | | | | | | detection | | | | | | + + + + + + + + + | Result panel 773 | + + + + + + + + + | Respiratory | 2022-03-26 | [facility] | NEGATIVE | (missing) | (missing) | | syncytial | 21:50 | [facility] | | | | | virus (RSV) | | [facility] | | | | | RNA | | | | | | | detection by | | | | | | | probe and | | | | | | | target | | | | | | | amplificatio | | | | | | | n method in | | | | | | | culture | | | | | | | isolate | | | | | | + + + + + + + + + | Result panel 774 | + + + + + + + + + | | 2022-03-26 | [facility] | NEGATIVE | (missing) | (missing) | | (unavailable | 21:50 | [facility] | | | | + + + + + + + + + | Result panel 775 | + + + + + + + + + | | 2022-03-26 | [facility] | NEGATIVE | (missing) | (missing) | | (unavailable | 21:50 | [facility] | | | | + + + + + + + + + | Result panel 776 | + + + + + + + + + | | 2022-03-26 | [facility] | NEGATIVE | (missing) | (missing) | | (unavailable | 21:50 | [facility] | | | | + + + + + + + + + | Result panel 777 | + + + + + + + + + | | 2022-03-26 | [facility] | NEGATIVE | (missing) | (missing) | | (unavailable | 21:50 | [facility] | | | | + + + + + + + + + | Result panel 778 | + + + + + + + + + | Respiratory | 2022-03-26 | [facility] | NEGATIVE | (missing) | (missing) | | specimen | 21:50 | [facility] | | | | | 2019 novel | | [facility] | | | | | coronavirus | | | | | | | RNA | | | | | | | detection | | | | | | + + + + + + + + + | Result panel 779 | + + + + + + + + + | Influenza | 2022-03-26 | [facility] | NEGATIVE | (missing) | (missing) | | virus A RNA | 21:50 | [facility] | [facility] | | | | | in | | | | | | | Respiratory | | | | | | | specimen by | | | | | | | [facility] | | | | | | | withprobe | | | | | | | detection | | | | | | + + + + + + + + + | Result panel 780 | + + + + + + + + + | Influenza | 2022-03-26 | [facility] | NEGATIVE | (missing) | (missing) | | virus B RNA | 21:50 | [facility] | [facility] | | | | | in | | | | | | | Respiratory | | | | | | | specimen by | | | | | | | [facility] | | | | | | | withprobe | | | | | | | detection | | | | | | + + + + + + + + + | Result panel 781 | + + + + + + + + + | Respiratory | 2022-03-26 | [facility] | NEGATIVE | (missing) | (missing) | | syncytial | 21:50 | [facility] | | | | | virus (RSV) | | [facility] | | | | | RNA | | | | | | | detection by | | | | | | | probe and | | | | | | | target | | | | | | | amplificatio | | | | | | | n method in | | | | | | | culture | | | | | | | isolate | | | | | | + + + + + + + + + | Result panel 782 | + + + + + +-------+ + + | | 2022-03-26 | [facility] | 9.1 | (missing) | (missing) | | (unavailable | 21:54 | [facility] | | | | + + + +-------+ + + + + | Result panel 783 | + + + + + +--------+ + + | | 2022-03-26 | [facility] | 3.94 | (missing) | (missing) | | (unavailable | 21:54 | [facility] | | | | + + + +--------+ + + + + | Result panel 784 | + + + + + +-------+ + + | | 2022-03-26 | [facility] | 9.8 | (missing) | (missing) | | (unavailable | 21:54 | [facility] | | | | + + + +-------+ + + + + | Result panel 785 | + + + + + +--------+ + + | | 2022-03-26 | [facility] | 30.5 | (missing) | (missing) | | (unavailable | 21:54 | [facility] | | | | + + + +--------+ + + + + | Result panel 786 | + + + + + +--------+ + + | | 2022-03-26 | [facility] | 77.2 | (missing) | (missing) | | (unavailable | 21:54 | [facility] | | | | + + + +--------+ + + + + | Result panel 787 | + + + + + +--------+ + + | | 2022-03-26 | [facility] | 24.9 | (missing) | (missing) | | (unavailable | 21:54 | [facility] | | | | + + + +--------+ + + + + | Result panel 788 | + + + + + +--------+ + + | | 2022-03-26 | [facility] | 32.2 | (missing) | (missing) | | (unavailable | 21:54 | [facility] | | | | + + + +--------+ + + + + | Result panel 789 | + + + + + +--------+ + + | | 2022-03-26 | [facility] | 16.3 | (missing) | (missing) | | (unavailable | 21:54 | [facility] | | | | + + + +--------+ + + + + | Result panel 790 | + + + + + +-------+ + + | | 2022-03-26 | [facility] | 325 | (missing) | (missing) | | (unavailable | 21:54 | [facility] | | | | + + + +-------+ + + + + | Result panel 791 | + + + + + +--------+ + + | | 2022-03-26 | [facility] | 67.4 | (missing) | (missing) | | (unavailable | 21:54 | [facility] | | | | + + + +--------+ + + + + | Result panel 792 | + + + + + +--------+ + + | | 2022-03-26 | [facility] | 24.8 | (missing) | (missing) | | (unavailable | 21:54 | [facility] | | | | + + + +--------+ + + + + | Result panel 793 | + + + + + +-------+ + + | | 2022-03-26 | [facility] | 5.2 | (missing) | (missing) | | (unavailable | 21:54 | [facility] | | | | + + + +-------+ + + + + | Result panel 794 | + + + + + +-------+ + + | | 2022-03-26 | [facility] | 1.8 | (missing) | (missing) | | (unavailable | 21:54 | [facility] | | | | + + + +-------+ + + + + | Result panel 795 | + + + + + +-------+ + + | | 2022-03-26 | [facility] | 0.8 | (missing) | (missing) | | (unavailable | 21:54 | [facility] | | | | + + + +-------+ + + + + | Result panel 796 | + + + + + +--------+ + + | | 2022-03-26 | [facility] | 12.8 | (missing) | (missing) | | (unavailable | 21:54 | [facility] | | | | + + + +--------+ + + + + | Result panel 797 | + + + + + +--------+ + + | | 2022-03-26 | [facility] | 0.98 | (missing) | (missing) | | (unavailable | 21:54 | [facility] | | | | + + + +--------+ + + + + | Result panel 798 | + + + + + +-------+---------+ + | | 2022-03-26 | [facility] | 176 | mg/dL | (missing) | | (unavailable | 21:54 | [facility] | | | | + + + +-------+---------+ + + + | Result panel 799 | + + + + + +------+---------+ + | | 2022-03-26 | [facility] | 29 | mg/dL | (missing) | | (unavailable | 21:54 | [facility] | | | | + + + +------+---------+ + + + | Result panel 800 | + + + + + +--------+---------+ + | | 2022-03-26 | [facility] | 0.90 | mg/dL | (missing) | | (unavailable | 21:54 | [facility] | | | | + + + +--------+---------+ + + + | Result panel 801 | + + + + + +------+ + + | | 2022-03-26 | [facility] | 81 | (missing) | (missing) | | (unavailable | 21:54 | [facility] | | | | + + + +------+ + + + + | Result panel 802 | + + + + + +---------+ + + | | 2022-03-26 | [facility] | 32.22 | (missing) | (missing) | | (unavailable | 21:54 | [facility] | | | | + + + +---------+ + + + + | Result panel 803 | + + + + + +-------+ + + | | 2022-03-26 | [facility] | 136 | (missing) | (missing) | | (unavailable | 21:54 | [facility] | | | | + + + +-------+ + + + + | Result panel 804 | + + + + + +-------+ + + | | 2022-03-26 | [facility] | 4.0 | (missing) | (missing) | | (unavailable | 21:54 | [facility] | | | | + + + +-------+ + + + + | Result panel 805 | + + + + + +-------+ + + | | 2022-03-26 | [facility] | 102 | (missing) | (missing) | | (unavailable | 21:54 | [facility] | | | | + + + +-------+ + + + + | Result panel 806 | + + + + + +------+ + + | | 2022-03-26 | [facility] | 25 | (missing) | (missing) | | (unavailable | 21:54 | [facility] | | | | + + + +------+ + + + + | Result panel 807 | + + + + + +--------+ + + | | 2022-03-26 | [facility] | 13.0 | (missing) | (missing) | | (unavailable | 21:54 | [facility] | | | | + + + +--------+ + + + + | Result panel 808 | + + + + + +-------+---------+ + | | 2022-03-26 | [facility] | 8.6 | mg/dL | (missing) | | (unavailable | 21:54 | [facility] | | | | + + + +-------+---------+ + + + | Result panel 809 | + + + + + +-------+---------+ + | | 2022-03-26 | [facility] | 1.6 | mg/dL | (missing) | | (unavailable | 21:54 | [facility] | | | | + + + +-------+---------+ + + + | Result panel 810 | + + + + + +-------+ + + | | 2022-03-26 | [facility] | 7.1 | (missing) | (missing) | | (unavailable | 21:54 | [facility] | | | | + + + +-------+ + + + + | Result panel 811 | + + + + + +-------+ + + | | 2022-03-26 | [facility] | 2.7 | (missing) | (missing) | | (unavailable | 21:54 | [facility] | | | | + + + +-------+ + + + + | Result panel 812 | + + + + + +-------+ + + | | 2022-03-26 | [facility] | 4.4 | (missing) | (missing) | | (unavailable | 21:54 | [facility] | | | | + + + +-------+ + + + + | Result panel 813 | + + + + + +--------+ + + | | 2022-03-26 | [facility] | 0.61 | (missing) | (missing) | | (unavailable | 21:54 | [facility] | | | | + + + +--------+ + + + + | Result panel 814 | + + + + + +-------+ + + | | 2022-03-26 | [facility] | 1.3 | (missing) | (missing) | | (unavailable | 21:54 | [facility] | | | | + + + +-------+ + + + + | Result panel 815 | + + + + + +------+ + + | | 2022-03-26 | [facility] | 20 | (missing) | (missing) | | (unavailable | 21:54 | [facility] | | | | + + + +------+ + + + + | Result panel 816 | + + + + + +------+ + + | | 2022-03-26 | [facility] | 29 | (missing) | (missing) | | (unavailable | 21:54 | [facility] | | | | + + + +------+ + + + + | Result panel 817 | + + + + + +------+ + + | | 2022-03-26 | [facility] | 64 | (missing) | (missing) | | (unavailable | 21:54 | [facility] | | | | + + + +------+ + + + + | Result panel 818 | + + + + + +-------+ + + | | 2022-03-26 | [facility] | 9.4 | (missing) | (missing) | | (unavailable | 21:54 | [facility] | | | | + + + +-------+ + + + + | Result panel 819 | + + + + + +-------+ + + | | 2022-04-04 | [facility] | 9.5 | (missing) | (missing) | | (unavailable | 16:35 | [facility] | | | | + + + +-------+ + + + + | Result panel 820 | + + + + + +--------+ + + | | 2022-04-04 | [facility] | 4.15 | (missing) | (missing) | | (unavailable | 16:35 | [facility] | | | | + + + +--------+ + + + + | Result panel 821 | + + + + + +--------+ + + | | 2022-04-04 | [facility] | 10.6 | (missing) | (missing) | | (unavailable | 16:35 | [facility] | | | | + + + +--------+ + + + + | Result panel 822 | + + + + + +--------+ + + | | 2022-04-04 | [facility] | 32.0 | (missing) | (missing) | | (unavailable | 16:35 | [facility] | | | | + + + +--------+ + + + + | Result panel 823 | + + + + + +--------+ + + | | 2022-04-04 | [facility] | 77.2 | (missing) | (missing) | | (unavailable | 16:35 | [facility] | | | | + + + +--------+ + + + + | Result panel 824 | + + + + + +--------+ + + | | 2022-04-04 | [facility] | 25.5 | (missing) | (missing) | | (unavailable | 16:35 | [facility] | | | | + + + +--------+ + + + + | Result panel 825 | + + + + + +--------+ + + | | 2022-04-04 | [facility] | 33.0 | (missing) | (missing) | | (unavailable | 16:35 | [facility] | | | | + + + +--------+ + + + + | Result panel 826 | + + + + + +--------+ + + | | 2022-04-04 | [facility] | 16.1 | (missing) | (missing) | | (unavailable | 16:35 | [facility] | | | | + + + +--------+ + + + + | Result panel 827 | + + + + + +-------+ + + | | 2022-04-04 | [facility] | 332 | (missing) | (missing) | | (unavailable | 16:35 | [facility] | | | | + + + +-------+ + + + + | Result panel 828 | + + + + + +--------+ + + | | 2022-04-04 | [facility] | 62.4 | (missing) | (missing) | | (unavailable | 16:35 | [facility] | | | | + + + +--------+ + + + + | Result panel 829 | + + + + + +--------+ + + | | 2022-04-04 | [facility] | 29.0 | (missing) | (missing) | | (unavailable | 16:35 | [facility] | | | | + + + +--------+ + + + + | Result panel 830 | + + + + + +-------+ + + | | 2022-04-04 | [facility] | 5.8 | (missing) | (missing) | | (unavailable | 16:35 | [facility] | | | | + + + +-------+ + + + + | Result panel 831 | + + + + + +-------+ + + | | 2022-04-04 | [facility] | 2.1 | (missing) | (missing) | | (unavailable | 16:35 | [facility] | | | | + + + +-------+ + + + + | Result panel 832 | + + + + + +-------+ + + | | 2022-04-04 | [facility] | 0.7 | (missing) | (missing) | | (unavailable | 16:35 | [facility] | | | | + + + +-------+ + + + + | Result panel 833 | + + + + + +--------+ + + | | 2022-04-04 | [facility] | 12.8 | (missing) | (missing) | | (unavailable | 16:35 | [facility] | | | | + + + +--------+ + + + + | Result panel 834 | + + + + + +--------+ + + | | 2022-04-04 | [facility] | 0.99 | (missing) | (missing) | | (unavailable | 16:35 | [facility] | | | | + + + +--------+ + + + + | Result panel 835 | + + + + + +-------+---------+ + | | 2022-04-04 | [facility] | 202 | mg/dL | (missing) | | (unavailable | 16:35 | [facility] | | | | + + + +-------+---------+ + + + | Result panel 836 | + + + + + +------+---------+ + | | 2022-04-04 | [facility] | 25 | mg/dL | (missing) | | (unavailable | 16:35 | [facility] | | | | + + + +------+---------+ + + + | Result panel 837 | + + + + + +--------+---------+ + | | 2022-04-04 | [facility] | 0.86 | mg/dL | (missing) | | (unavailable | 16:35 | [facility] | | | | + + + +--------+---------+ + + + | Result panel 838 | + + + + + +------+ + + | | 2022-04-04 | [facility] | 85 | (missing) | (missing) | | (unavailable | 16:35 | [facility] | | | | + + + +------+ + + + + | Result panel 839 | + + + + + +---------+ + + | | 2022-04-04 | [facility] | 29.06 | (missing) | (missing) | | (unavailable | 16:35 | [facility] | | | | + + + +---------+ + + + + | Result panel 840 | + + + + + +-------+ + + | | 2022-04-04 | [facility] | 136 | (missing) | (missing) | | (unavailable | 16:35 | [facility] | | | | + + + +-------+ + + + + | Result panel 841 | + + + + + +-------+ + + | | 2022-04-04 | [facility] | 4.8 | (missing) | (missing) | | (unavailable | 16:35 | [facility] | | | | + + + +-------+ + + + + | Result panel 842 | + + + + + +-------+ + + | | 2022-04-04 | [facility] | 101 | (missing) | (missing) | | (unavailable | 16:35 | [facility] | | | | + + + +-------+ + + + + | Result panel 843 | + + + + + +------+ + + | | 2022-04-04 | [facility] | 25 | (missing) | (missing) | | (unavailable | 16:35 | [facility] | | | | + + + +------+ + + + + | Result panel 844 | + + + + + +--------+ + + | | 2022-04-04 | [facility] | 14.8 | (missing) | (missing) | | (unavailable | 16:35 | [facility] | | | | + + + +--------+ + + + + | Result panel 845 | + + + + + +-------+---------+ + | | 2022-04-04 | [facility] | 8.4 | mg/dL | (missing) | | (unavailable | 16:35 | [facility] | | | | + + + +-------+---------+ + + + | Result panel 846 | + + + + + +-------+---------+ + | | 2022-04-04 | [facility] | 1.7 | mg/dL | (missing) | | (unavailable | 16:35 | [facility] | | | | + + + +-------+---------+ + + + | Result panel 847 | + + + + + +-------+ + + | | 2022-04-04 | [facility] | 7.4 | (missing) | (missing) | | (unavailable | 16:35 | [facility] | | | | + + + +-------+ + + + + | Result panel 848 | + + + + + +-------+ + + | | 2022-04-04 | [facility] | 3.1 | (missing) | (missing) | | (unavailable | 16:35 | [facility] | | | | + + + +-------+ + + + + | Result panel 849 | + + + + + +-------+ + + | | 2022-04-04 | [facility] | 4.3 | (missing) | (missing) | | (unavailable | 16:35 | [facility] | | | | + + + +-------+ + + + + | Result panel 850 | + + + + + +--------+ + + | | 2022-04-04 | [facility] | 0.72 | (missing) | (missing) | | (unavailable | 16:35 | [facility] | | | | + + + +--------+ + + + + | Result panel 851 | + + + + + +-------+ + + | | 2022-04-04 | [facility] | 1.1 | (missing) | (missing) | | (unavailable | 16:35 | [facility] | | | | + + + +-------+ + + + + | Result panel 852 | + + + + + +------+ + + | | 2022-04-04 | [facility] | 17 | (missing) | (missing) | | (unavailable | 16:35 | [facility] | | | | + + + +------+ + + + + | Result panel 853 | + + + + + +------+ + + | | 2022-04-04 | [facility] | 33 | (missing) | (missing) | | (unavailable | 16:35 | [facility] | | | | + + + +------+ + + + + | Result panel 854 | + + + + + +------+ + + | | 2022-04-04 | [facility] | 72 | (missing) | (missing) | | (unavailable | 16:35 | [facility] | | | | + + + +------+ + + + + | Result panel 855 | + + + + + +--------+ + + | | 2022-04-04 | [facility] | 11.0 | (missing) | (missing) | | (unavailable | 18:12 | [facility] | | | | + + + +--------+ + + + + | Result panel 856 | + + + + + +--------+ + + | | 2022-04-06 | [facility] | 12.4 | (missing) | (missing) | | (unavailable | 15:17 | [facility] | | | | + + + +--------+ + + + + | Result panel 857 | + + + + + +--------+ + + | | 2022-04-06 | [facility] | 0.95 | (missing) | (missing) | | (unavailable | 15:17 | [facility] | | | | + + + +--------+ + + + + | Result panel 858 | + + + + + +--------+ + + | | 2022-04-06 | [facility] | 0.56 | (missing) | (missing) | | (unavailable | 15:17 | [facility] | | | | + + + +--------+ + + + + | Result panel 859 | + + + + + +--------+ + + | Prothrombin | 2022-04-06 | [facility] | 12.4 | (missing) | (missing) | | time (PT) | 15:17 | [facility] | | | | | in platelet | | [facility] | | | | | poor plasma | | | | | | | by | | | | | | | coagulation | | | | | | | assay | | | | | | + + + +--------+ + + + + | Result panel 860 | + + + + + +--------+ + + | INR in | 2022-04-06 | [facility] | 0.95 | (missing) | (missing) | | Platelet | 15:17 | [facility] | | | | | poor plasma | | [facility] | | | | | by | | | | | | | Coagulation | | | | | | | assay | | | | | | + + + +--------+ + + + + | Result panel 861 | + + + + + +--------+ + + | Fibrin | 2022-04-06 | [facility] | 0.56 | (missing) | (missing) | | D-dimer FEU | 15:17 | [facility] | | | | | [Mass/volume | | Hospital | | | | | ] in | | | | | | | Platelet | | | | | | | poor plasma | | | | | | | by | | | | | | | Immunoassay | | | | | | + + + +--------+ + + + + | Result panel 862 | + + + + + +-------+ + + | | 2022-04-06 | [facility] | 9.3 | (missing) | (missing) | | (unavailable | 15:17 | [facility] | | | | + + + +-------+ + + + + | Result panel 863 | + + + + + +--------+ + + | | 2022-04-06 | [facility] | 3.99 | (missing) | (missing) | | (unavailable | 15:17 | [facility] | | | | + + + +--------+ + + + + | Result panel 864 | + + + + + +--------+ + + | | 2022-04-06 | [facility] | 10.0 | (missing) | (missing) | | (unavailable | 15:17 | [facility] | | | | + + + +--------+ + + + + | Result panel 865 | + + + + + +--------+ + + | | 2022-04-06 | [facility] | 31.0 | (missing) | (missing) | | (unavailable | 15:17 | [facility] | | | | + + + +--------+ + + + + | Result panel 866 | + + + + + +--------+ + + | | 2022-04-06 | [facility] | 77.7 | (missing) | (missing) | | (unavailable | 15:17 | [facility] | | | | + + + +--------+ + + + + | Result panel 867 | + + + + + +--------+ + + | | 2022-04-06 | [facility] | 25.1 | (missing) | (missing) | | (unavailable | 15:17 | [facility] | | | | + + + +--------+ + + + + | Result panel 868 | + + + + + +--------+ + + | | 2022-04-06 | [facility] | 32.3 | (missing) | (missing) | | (unavailable | 15:17 | [facility] | | | | + + + +--------+ + + + + | Result panel 869 | + + + + + +--------+ + + | | 2022-04-06 | [facility] | 15.7 | (missing) | (missing) | | (unavailable | 15:17 | [facility] | | | | + + + +--------+ + + + + | Result panel 870 | + + + + + +-------+ + + | | 2022-04-06 | [facility] | 310 | (missing) | (missing) | | (unavailable | 15:17 | [facility] | | | | + + + +-------+ + + + + | Result panel 871 | + + + + + +--------+ + + | | 2022-04-06 | [facility] | 68.1 | (missing) | (missing) | | (unavailable | 15:17 | [facility] | | | | + + + +--------+ + + + + | Result panel 872 | + + + + + +--------+ + + | | 2022-04-06 | [facility] | 24.6 | (missing) | (missing) | | (unavailable | 15:17 | [facility] | | | | + + + +--------+ + + + + | Result panel 873 | + + + + + +-------+ + + | | 2022-04-06 | [facility] | 4.3 | (missing) | (missing) | | (unavailable | 15:17 | [facility] | | | | + + + +-------+ + + + + | Result panel 874 | + + + + + +-------+ + + | | 2022-04-06 | [facility] | 2.3 | (missing) | (missing) | | (unavailable | 15:17 | [facility] | | | | + + + +-------+ + + + + | Result panel 875 | + + + + + +-------+ + + | | 2022-04-06 | [facility] | 0.7 | (missing) | (missing) | | (unavailable | 15:17 | [facility] | | | | + + + +-------+ + + + + | Result panel 876 | + + + + + +--------+ + + | | 2022-04-06 | [facility] | 12.4 | (missing) | (missing) | | (unavailable | 15:17 | [facility] | | | | + + + +--------+ + + + + | Result panel 877 | + + + + + +--------+ + + | | 2022-04-06 | [facility] | 0.95 | (missing) | (missing) | | (unavailable | 15:17 | [facility] | | | | + + + +--------+ + + + + | Result panel 878 | + + + + + +--------+ + + | | 2022-04-06 | [facility] | 0.56 | (missing) | (missing) | | (unavailable | 15:17 | [facility] | | | | + + + +--------+ + + + + | Result panel 879 | + + + + + +-------+---------+ + | | 2022-04-06 | [facility] | 257 | mg/dL | (missing) | | (unavailable | 15:17 | [facility] | | | | + + + +-------+---------+ + + + | Result panel 880 | + + + + + +------+---------+ + | | 2022-04-06 | [facility] | 28 | mg/dL | (missing) | | (unavailable | 15:17 | [facility] | | | | + + + +------+---------+ + + + | Result panel 881 | + + + + + +--------+---------+ + | | 2022-04-06 | [facility] | 0.89 | mg/dL | (missing) | | (unavailable | 15:17 | [facility] | | | | + + + +--------+---------+ + + + | Result panel 882 | + + + + + +------+ + + | | 2022-04-06 | [facility] | 82 | (missing) | (missing) | | (unavailable | 15:17 | [facility] | | | | + + + +------+ + + + + | Result panel 883 | + + + + + +---------+ + + | | 2022-04-06 | [facility] | 31.46 | (missing) | (missing) | | (unavailable | 15:17 | [facility] | | | | + + + +---------+ + + + + | Result panel 884 | + + + + + +-------+ + + | | 2022-04-06 | [facility] | 135 | (missing) | (missing) | | (unavailable | 15:17 | [facility] | | | | + + + +-------+ + + + + | Result panel 885 | + + + + + +-------+ + + | | 2022-04-06 | [facility] | 4.7 | (missing) | (missing) | | (unavailable | 15:17 | [facility] | | | | + + + +-------+ + + + + | Result panel 886 | + + + + + +-------+ + + | | 2022-04-06 | [facility] | 101 | (missing) | (missing) | | (unavailable | 15:17 | [facility] | | | | + + + +-------+ + + + + | Result panel 887 | + + + + + +------+ + + | | 2022-04-06 | [facility] | 25 | (missing) | (missing) | | (unavailable | 15:17 | [facility] | | | | + + + +------+ + + + + | Result panel 888 | + + + + + +--------+ + + | | 2022-04-06 | [facility] | 13.7 | (missing) | (missing) | | (unavailable | 15:17 | [facility] | | | | + + + +--------+ + + + + | Result panel 889 | + + + + + +-------+---------+ + | | 2022-04-06 | [facility] | 8.3 | mg/dL | (missing) | | (unavailable | 15:17 | [facility] | | | | + + + +-------+---------+ + + + | Result panel 890 | + + + + + +-------+---------+ + | | 2022-04-06 | [facility] | 1.6 | mg/dL | (missing) | | (unavailable | 15:17 | [facility] | | | | + + + +-------+---------+ + + + | Result panel 891 | + + + + + +-------+ + + | | 2022-04-06 | [facility] | 7.0 | (missing) | (missing) | | (unavailable | 15:17 | [facility] | | | | + + + +-------+ + + + + | Result panel 892 | + + + + + +-------+ + + | | 2022-04-06 | [facility] | 2.9 | (missing) | (missing) | | (unavailable | 15:17 | [facility] | | | | + + + +-------+ + + + + | Result panel 893 | + + + + + +-------+ + + | | 2022-04-06 | [facility] | 4.1 | (missing) | (missing) | | (unavailable | 15:17 | [facility] | | | | + + + +-------+ + + + + | Result panel 894 | + + + + + +--------+ + + | | 2022-04-06 | [facility] | 0.71 | (missing) | (missing) | | (unavailable | 15:17 | [facility] | | | | + + + +--------+ + + + + | Result panel 895 | + + + + + +-------+ + + | | 2022-04-06 | [facility] | 1.0 | (missing) | (missing) | | (unavailable | 15:17 | [facility] | | | | + + + +-------+ + + + + | Result panel 896 | + + + + + +------+ + + | | 2022-04-06 | [facility] | 10 | (missing) | (missing) | | (unavailable | 15:17 | [facility] | | | | + + + +------+ + + + + | Result panel 897 | + + + + + +------+ + + | | 2022-04-06 | [facility] | 14 | (missing) | (missing) | | (unavailable | 15:17 | [facility] | | | | + + + +------+ + + + + | Result panel 898 | + + + + + +------+ + + | | 2022-04-06 | [facility] | 62 | (missing) | (missing) | | (unavailable | 15:17 | [facility] | | | | + + + +------+ + + + + | Result panel 899 | + + + + + +-------+ + + | | 2022-04-06 | [facility] | 9.6 | (missing) | (missing) | | (unavailable | 15:17 | [facility] | | | | + + + +-------+ + + + + | Result panel 900 | + + + + + +-------+ + + | Blood | 2022-04-06 | [facility] | 9.3 | (missing) | (missing) | | leukocytes | 15:17 | [facility] | | | | | automated | | [facility] | | | | | count | | | | | | | (number/volu | | | | | | | me) | | | | | | + + + +-------+ + + + + | Result panel 901 | + + + + + +--------+ + + | Blood | 2022-04-06 | [facility] | 3.99 | (missing) | (missing) | | erythrocytes | 15:17 | [facility] | | | | automated | | [facility] | | | | | count | | | | | | | (number/volu | | | | | | | me) | | | | | | + + + +--------+ + + + + | Result panel 902 | + + + + + +--------+ + + | Blood | 2022-04-06 | [facility] | 10.0 | (missing) | (missing) | | hemoglobin | 15:17 | [facility] | | | | | measurement | | [facility] | | | | | (mass/volume | | | | | | | ) | | | | | | + + + +--------+ + + + + | Result panel 903 | + + + + + +--------+ + + | Automated | 2022-04-06 | [facility] | 31.0 | (missing) | (missing) | | blood | 15:17 | [facility] | | | | | hematocrit | | [facility] | | | | + + + +--------+ + + + + | Result panel 904 | + + + + + +--------+ + + | Automated | 2022-04-06 | [facility] | 77.7 | (missing) | (missing) | | erythrocyte | 15:17 | [facility] | | | | | mean | | [facility] | | | | | corpuscular | | | | | | | volume | | | | | | + + + +--------+ + + + + | Result panel 905 | + + + + + +--------+ + + | Automated | 2022-04-06 | [facility] | 25.1 | (missing) | (missing) | | erythrocyte | 15:17 | [facility] | | | | | mean | | [facility] | | | | | corpuscular | | | | | | | hemoglobin | | | | | | | (mass per | | | | | | | erythrocyte) | | | | | | | | | | | | | + + + +--------+ + + + + | Result panel 906 | + + + + + +--------+ + + | Automated | 2022-04-06 | [facility] | 32.3 | (missing) | (missing) | | erythrocyte | 15:17 | [facility] | | | | | mean | | [facility] | | | | | corpuscular | | | | | | | hemoglobin | | | | | | | concentratio | | | | | | | n | | | | | | | measurement | | | | | | | (mass/volume | | | | | | | ) | | | | | | + + + +--------+ + + + + | Result panel 907 | + + + + + +--------+ + + | Automated | 2022-04-06 | [facility] | 15.7 | (missing) | (missing) | | erythrocyte | 15:17 | [facility] | | | | | distribution | | [facility] | | | | | width | | | | | | + + + +--------+ + + + + | Result panel 908 | + + + + + +-------+ + + | Automated | 2022-04-06 | [facility] | 310 | (missing) | (missing) | | blood | 15:17 | [facility] | | | | | platelet | | [facility] | | | | | count | | | | | | | (count/volum | | | | | | | e) | | | | | | + + + +-------+ + + + + | Result panel 909 | + + + + + +--------+ + + | Automated | 2022-04-06 | [facility] | 68.1 | (missing) | (missing) | | blood | 15:17 | [facility] | | | | | neutrophil | | [facility] | | | | | count as | | | | | | | percentage | | | | | | | of total | | | | | | | leukocytes | | | | | | + + + +--------+ + + + + | Result panel 910 | + + + + + +--------+ + + | Automated | 2022-04-06 | [facility] | 24.6 | (missing) | (missing) | | blood | 15:17 | [facility] | | | | | lymphocyte | | [facility] | | | | | count as | | | | | | | percentage | | | | | | | ot total | | | | | | | leukocytes | | | | | | + + + +--------+ + + + + | Result panel 911 | + + + + + +-------+ + + | Automated | 2022-04-06 | [facility] | 4.3 | (missing) | (missing) | | blood | 15:17 | [facility] | | | | | monocyte | | Hospital | | | | | count as | | | | | | | percentage | | | | | | | of total | | | | | | | leukocytes | | | | | | + + + +-------+ + + + + | Result panel 912 | + + + + + +-------+ + + | Automated | 2022-04-06 | [facility] | 2.3 | (missing) | (missing) | | blood | 15:17 | [facility] | | | | | eosinophil | | Hospital | | | | | count as | | | | | | | percentage | | | | | | | of total | | | | | | | leukocytes | | | | | | + + + +-------+ + + + + | Result panel 913 | + + + + + +-------+ + + | Automated | 2022-04-06 | [facility] | 0.7 | (missing) | (missing) | | blood | 15:17 | [facility] | | | | | basophil | | Hospital | | | | | count as | | | | | | | percentage | | | | | | | of total | | | | | | | leukocytes | | | | | | + + + +-------+ + + + + | Result panel 914 | + + + + + +--------+ + + | Prothrombin | 2022-04-06 | [facility] | 12.4 | (missing) | (missing) | | time (PT) | 15:17 | [facility] | | | | | in platelet | | Hospital | | | | | poor plasma | | | | | | | by | | | | | | | coagulation | | | | | | | assay | | | | | | + + + +--------+ + + + + | Result panel 915 | + + + + + +--------+ + + | INR in | 2022-04-06 | [facility] | 0.95 | (missing) | (missing) | | Platelet | 15:17 | [facility] | | | | | poor plasma | | Hospital | | | | | by | | | | | | | Coagulation | | | | | | | assay | | | | | | + + + +--------+ + + + + | Result panel 916 | + + + + + +--------+ + + | Fibrin | 2022-04-06 | [facility] | 0.56 | (missing) | (missing) | | D-dimer FEU | 15:17 | [facility] | | | | | [Mass/volume | | Hospital | | | | | ] in | | | | | | | Platelet | | | | | | | poor plasma | | | | | | | by | | | | | | | Immunoassay | | | | | | + + + +--------+ + + + + | Result panel 917 | + + + + + +-------+ + + | Serum or | 2022-04-06 | [facility] | 257 | (missing) | (missing) | | plasma | 15:17 | [facility] | | | | | glucose | | Hospital | | | | | measurement | | | | | | | (mass/volume | | | | | | | ) | | | | | | + + + +-------+ + + + + | Result panel 918 | + + + + + +------+ + + | Serum or | 2022-04-06 | [facility] | 28 | (missing) | (missing) | | plasma urea | 15:17 | [facility] | | | | | nitrogen | | Hospital | | | | | measurement | | | | | | | (mass/volume | | | | | | | ) | | | | | | + + + +------+ + + + + | Result panel 919 | + + + + + +--------+ + + | Serum or | 2022-04-06 | [facility] | 0.89 | (missing) | (missing) | | plasma | 15:17 | [facility] | | | | | creatinine | | Hospital | | | | | measurement | | | | | | | (mass/volume | | | | | | | ) | | | | | | + + + +--------+ + + + + | Result panel 920 | + + + + + +------+ + + | Glomerular | 2022-04-06 | [facility] | 82 | (missing) | (missing) | | filtration | 15:17 | [facility] | | | | | rate/1.73 sq | | Hospital | | | | | M.predicted | | | | | | | [Volume | | | | | | | Rate/Area] | | | | | | | inSerum, | | | | | | | Plasma or | | | | | | | Blood by | | | | | | | Creatinine-b | | | | | | | ased formula | | | | | | | (CKD-EPI | | | | | | | 2020) | | | | | | + + + +------+ + + + + | Result panel 921 | + + + + + +---------+ + + | Serum or | 2022-04-06 | [facility] | 31.46 | (missing) | (missing) | | plasma urea | 15:17 | [facility] | | | | | nitrogen/cre | | Hospital | | | | | atinine mass | | | | | | | ratio | | | | | | + + + +---------+ + + + + | Result panel 922 | + + + + + +-------+ + + | Serum or | 2022-04-06 | [facility] | 135 | (missing) | (missing) | | plasma | 15:17 | [facility] | | | | | sodium | | Hospital | | | | | measurement | | | | | | | (moles/volum | | | | | | | e) | | | | | | + + + +-------+ + + + + | Result panel 923 | + + + + + +-------+ + + | Serum or | 2022-04-06 | [facility] | 4.7 | (missing) | (missing) | | plasma | 15:17 | [facility] | | | | | potassium | | Hospital | | | | | measurement | | | | | | | (moles/volum | | | | | | | e) | | | | | | + + + +-------+ + + + + | Result panel 924 | + + + + + +-------+ + + | Serum or | 2022-04-06 | [facility] | 101 | (missing) | (missing) | | plasma | 15:17 | [facility] chloride [facility] | [facility] | | | | | measurement | | | | | | | (moles/volum | | | | | | | e) | | | | | | + + + +-------+ + + + + | Result panel 925 | + + + + + +------+ + + | Serum or | 2022-04-06 | [facility] | 25 | (missing) | (missing) | | plasma | 15:17 | [facility] | | | | | carbon | | [facility] | | | | | dioxide, | | | | | | | total | | | | | | | measurement | | | | | | | (moles/volum | | | | | | | e) | | | | | | + + + +------+ + + + + | Result panel 926 | + + + + + +--------+ + + | Serum or | 2022-04-06 | [facility] | 13.7 | (missing) | (missing) | | plasma anion | 15:17 | [facility] | | | | | gap 4 | | [facility] | | | | + + + +--------+ + + + + | Result panel 927 | + + + + + +-------+ + + | Serum or | 2022-04-06 | [facility] | 8.3 | (missing) | (missing) | | plasma | 15:17 | [facility] | | | | | calcium | | [facility] | | | | | measurement | | | | | | | (mass/volume | | | | | | | ) | | | | | | + + + +-------+ + + + + | Result panel 928 | + + + + + +-------+ + + | Serum or | 2022-04-06 | [facility] | 1.6 | (missing) | (missing) | | plasma | 15:17 | [facility] | | | | | magnesium | | [facility] | | | | | measurement | | | | | | | (mass/volume | | | | | | | ) | | | | | | + + + +-------+ + + + + | Result panel 929 | + + + + + +-------+ + + | Serum or | 2022-04-06 | [facility] | 7.0 | (missing) | (missing) | | plasma | 15:17 | [facility] | | | | | protein | | [facility] | | | | | measurement | | | | | | | (mass/volume | | | | | | | ) | | | | | | + + + +-------+ + + + + | Result panel 930 | + + + + + +-------+ + + | Serum or | 2022-04-06 | [facility] | 2.9 | (missing) | (missing) | | plasma | 15:17 | [facility] | | | | | albumin | | [facility] | | | | | measurement | | | | | | | (mass/volume | | | | | | | ) | | | | | | + + + +-------+ + + + + | Result panel 931 | + + + + + +-------+ + + | Serum | 2022-04-06 | [facility] | 4.1 | (missing) | (missing) | | globulin | 15:17 | [facility] | | | | | measurement | | [facility] | | | | | (mass/volume | | | | | | | ) | | | | | | + + + +-------+ + + + + | Result panel 932 | + + + + + +--------+ + + | Serum or | 2022-04-06 | [facility] | 0.71 | (missing) | (missing) | | plasma | 15:17 | [facility] | | | | | albumin/glob | | [facility] | | | | | ulin mass | | | | | | | ratio | | | | | | + + + +--------+ + + + + | Result panel 933 | + + + + + +-------+ + + | Serum or | 2022-04-06 | [facility] | 1.0 | (missing) | (missing) | | plasma total | 15:17 | [facility] | | | | | bilirubin | | [facility] | | | | | measurement | | | | | | | (mass/volume | | | | | | | ) | | | | | | + + + +-------+ + + + + | Result panel 934 | + + + + + +------+ + + | Serum or | 2022-04-06 | [facility] | 10 | (missing) | (missing) | | plasma | 15:17 | [facility] | | | | | aspartate | | [facility] | | | | | aminotransfe | | | | | | | rase | | | | | | | measurement | | | | | | | (enzymatic | | | | | | | activity/vol | | | | | | | ume) | | | | | | + + + +------+ + + + + | Result panel 935 | + + + + + +------+ + + | Serum or | 2022-04-06 | [facility] | 14 | (missing) | (missing) | | plasma | 15:17 | [facility] | | | | | alanine | | [facility] | | | | | aminotransfe | | | | | | | rase | | | | | | | measurement | | | | | | | (enzymatic | | | | | | | activity/vol | | | | | | | ume) | | | | | | + + + +------+ + + + + | Result panel 936 | + + + + + +------+ + + | Serum or | 2022-04-06 | [facility] | 62 | (missing) | (missing) | | plasma | 15:17 | [facility] | | | | | alkaline | | [facility] | | | | | phosphatase | | | | | | | measurement | | | | | | | (enzymatic | | | | | | | activity/vol | | | | | | | ume) | | | | | | + + + +------+ + + + + | Result panel 937 | + + + + + +-------+ + + | Serum or | 2022-04-06 | [facility] | 9.6 | (missing) | (missing) | | plasma | 15:17 | [facility] | | | | | cardiac | | [facility] | | | | | troponin I | | | | | | | measurement | | | | | | | by high | | | | | | | senstivity | | | | | | | method | | | | | | | (mass/volume | | | | | | | ) | | | | | | + + + +-------+ + + + + | Result panel 938 | + + + + + +-------+ + + | | 2022-04-06 | [facility] | 9.3 | (missing) | (missing) | | (unavailable | 15:17 | [facility] ) | | [facility] | | | | + + + +-------+ + + + + | Result panel 939 | + + + + + +--------+ + + | | 2022-04-06 | [facility] | 3.99 | (missing) | (missing) | | (unavailable | 15:17 | [facility] ) | | [facility] | | | | + + + +--------+ + + + + | Result panel 940 | + + + + + +--------+ + + | | 2022-04-06 | [facility] | 10.0 | (missing) | (missing) | | (unavailable | 15:17 | [facility] | | [facility] | | | | + + + +--------+ + + + + | Result panel 941 | + + + + + +--------+ + + | | 2022-04-06 | [facility] | 31.0 | (missing) | (missing) | | (unavailable | 15:17 | [facility] | | | | + + + +--------+ + + + + | Result panel 942 | + + + + + +--------+ + + | | 2022-04-06 | [facility] | 77.7 | (missing) | (missing) | | (unavailable | 15:17 | [facility] | | | | + + + +--------+ + + + + | Result panel 943 | + + + + + +--------+ + + | | 2022-04-06 | [facility] | 25.1 | (missing) | (missing) | | (unavailable | 15:17 | [facility] | | | | + + + +--------+ + + + + | Result panel 944 | + + + + + +--------+ + + | | 2022-04-06 | [facility] | 32.3 | (missing) | (missing) | | (unavailable | 15:17 | [facility] | | | | + + + +--------+ + + + + | Result panel 945 | + + + + + +--------+ + + | | 2022-04-06 | [facility] | 15.7 | (missing) | (missing) | | (unavailable | 15:17 | [facility] | | | | + + + +--------+ + + + + | Result panel 946 | + + + + + +-------+ + + | | 2022-04-06 | [facility] | 310 | (missing) | (missing) | | (unavailable | 15:17 | [facility] | | | | + + + +-------+ + + + + | Result panel 947 | + + + + + +--------+ + + | | 2022-04-06 | [facility] | 68.1 | (missing) | (missing) | | (unavailable | 15:17 | [facility] | | | | + + + +--------+ + + + + | Result panel 948 | + + + + + +--------+ + + | | 2022-04-06 | [facility] | 24.6 | (missing) | (missing) | | (unavailable | 15:17 | [facility] | | | | + + + +--------+ + + + + | Result panel 949 | + + + + + +-------+ + + | | 2022-04-06 | [facility] | 4.3 | (missing) | (missing) | | (unavailable | 15:17 | [facility] | | | | + + + +-------+ + + + + | Result panel 950 | + + + + + +-------+ + + | | 2022-04-06 | [facility] | 2.3 | (missing) | (missing) | | (unavailable | 15:17 | [facility] | | | | + + + +-------+ + + + + | Result panel 951 | + + + + + +-------+ + + | | 2022-04-06 | [facility] | 0.7 | (missing) | (missing) | | (unavailable | 15:17 | [facility] | | | | + + + +-------+ + + + + | Result panel 952 | + + + + + +--------+ + + | | 2022-04-06 | [facility] | 12.4 | (missing) | (missing) | | (unavailable | 15:17 | [facility] | | | | + + + +--------+ + + + + | Result panel 953 | + + + + + +--------+ + + | | 2022-04-06 | [facility] | 0.95 | (missing) | (missing) | | (unavailable | 15:17 | [facility] | | | | + + + +--------+ + + + + | Result panel 954 | + + + + + +--------+ + + | | 2022-04-06 | [facility] | 0.56 | (missing) | (missing) | | (unavailable | 15:17 | [facility] | | | | + + + +--------+ + + + + | Result panel 955 | + + + + + +-------+---------+ + | | 2022-04-06 | [facility] | 257 | mg/dL | (missing) | | (unavailable | 15:17 | [facility] | | | | + + + +-------+---------+ + + + | Result panel 956 | + + + + + +------+---------+ + | | 2022-04-06 | [facility] | 28 | mg/dL | (missing) | | (unavailable | 15:17 | [facility] | | | | + + + +------+---------+ + + + | Result panel 957 | + + + + + +--------+---------+ + | | 2022-04-06 | [facility] | 0.89 | mg/dL | (missing) | | (unavailable | 15:17 | [facility] | | | | + + + +--------+---------+ + + + | Result panel 958 | + + + + + +------+ + + | | 2022-04-06 | [facility] | 82 | (missing) | (missing) | | (unavailable | 15:17 | [facility] | | | | + + + +------+ + + + + | Result panel 959 | + + + + + +---------+ + + | | 2022-04-06 | [facility] | 31.46 | (missing) | (missing) | | (unavailable | 15:17 | [facility] | | | | + + + +---------+ + + + + | Result panel 960 | + + + + + +-------+ + + | | 2022-04-06 | [facility] | 135 | (missing) | (missing) | | (unavailable | 15:17 | [facility] | | | | + + + +-------+ + + + + | Result panel 961 | + + + + + +-------+ + + | | 2022-04-06 | [facility] | 4.7 | (missing) | (missing) | | (unavailable | 15:17 | [facility] | | | | + + + +-------+ + + + + | Result panel 962 | + + + + + +-------+ + + | | 2022-04-06 | [facility] | 101 | (missing) | (missing) | | (unavailable | 15:17 | [facility] | | | | + + + +-------+ + + + + | Result panel 963 | + + + + + +------+ + + | | 2022-04-06 | [facility] | 25 | (missing) | (missing) | | (unavailable | 15:17 | [facility] | | | | + + + +------+ + + + + | Result panel 964 | + + + + + +--------+ + + | | 2022-04-06 | [facility] | 13.7 | (missing) | (missing) | | (unavailable | 15:17 | [facility] | | | | + + + +--------+ + + + + | Result panel 965 | + + + + + +-------+---------+ + | | 2022-04-06 | [facility] | 8.3 | mg/dL | (missing) | | (unavailable | 15:17 | [facility] | | | | + + + +-------+---------+ + + + | Result panel 966 | + + + + + +-------+---------+ + | | 2022-04-06 | [facility] | 1.6 | mg/dL | (missing) | | (unavailable | 15:17 | [facility] | | | | + + + +-------+---------+ + + + | Result panel 967 | + + + + + +-------+ + + | | 2022-04-06 | [facility] | 7.0 | (missing) | (missing) | | (unavailable | 15:17 | [facility] | | | | + + + +-------+ + + + + | Result panel 968 | + + + + + +-------+ + + | | 2022-04-06 | [facility] | 2.9 | (missing) | (missing) | | (unavailable | 15:17 | [facility] | | | | + + + +-------+ + + + + | Result panel 969 | + + + + + +-------+ + + | | 2022-04-06 | [facility] | 4.1 | (missing) | (missing) | | (unavailable | 15:17 | [facility] | | | | + + + +-------+ + + + + | Result panel 970 | + + + + + +--------+ + + | | 2022-04-06 | [facility] | 0.71 | (missing) | (missing) | | (unavailable | 15:17 | [facility] | | | | + + + +--------+ + + + + | Result panel 971 | + + + + + +-------+ + + | | 2022-04-06 | [facility] | 1.0 | (missing) | (missing) | | (unavailable | 15:17 | [facility] | | | | + + + +-------+ + + + + | Result panel 972 | + + + + + +------+ + + | | 2022-04-06 | [facility] | 10 | (missing) | (missing) | | (unavailable | 15:17 | [facility] | | | | + + + +------+ + + + + | Result panel 973 | + + + + + +------+ + + | | 2022-04-06 | [facility] | 14 | (missing) | (missing) | | (unavailable | 15:17 | [facility] | | | | + + + +------+ + + + + | Result panel 974 | + + + + + +------+ + + | | 2022-04-06 | [facility] | 62 | (missing) | (missing) | | (unavailable | 15:17 | [facility] | | | | + + + +------+ + + + + | Result panel 975 | + + + + + +-------+ + + | | 2022-04-06 | [facility] | 9.6 | (missing) | (missing) | | (unavailable | 15:17 | [facility] | | | | + + + +-------+ + + + + | Result panel 976 | + + + + + +--------+ + + | Prothrombin | 2022-04-06 | [facility] | 12.4 | (missing) | (missing) | | time (PT) | 15:17 | [facility] | | | | | in platelet | | [facility] | | | | | poor plasma | | | | | | | by | | | | | | | coagulation | | | | | | | assay | | | | | | + + + +--------+ + + + + | Result panel 977 | + + + + + +--------+ + + | INR in | 2022-04-06 | [facility] | 0.95 | (missing) | (missing) | | Platelet | 15:17 | [facility] | | | | | poor plasma | | [facility] | | | | | by | | | | | | | Coagulation | | | | | | | assay | | | | | | + + + +--------+ + + + + | Result panel 978 | + + + + + +--------+ + + | Fibrin | 2022-04-06 | [facility] | 0.56 | (missing) | (missing) | | D-dimer FEU | 15:17 | [facility] | | | | | [Mass/volume | | Hospital | | | | | ] in | | | | | | | Platelet | | | | | | | poor plasma | | | | | | | by | | | | | | | Immunoassay | | | | | | + + + +--------+ + + + + | Result panel 979 | + + + + + +--------+ + + | | 2022-04-06 | [facility] | 12.4 | (missing) | (missing) | | (unavailable | 15:17 | [facility] ) | | [facility] | | | | + + + +--------+ + + + + | Result panel 980 | + + + + + +--------+ + + | | 2022-04-06 | [facility] | 0.95 | (missing) | (missing) | | (unavailable | 15:17 | [facility] ) | | [facility] | | | | + + + +--------+ + + + + | Result panel 981 | + + + + + +--------+ + + | | 2022-04-06 | [facility] | 0.56 | (missing) | (missing) | | (unavailable | 15:17 | [facility] | [facility] | | | | + + + +--------+ + + + + | Result panel 982 | + + + + + +-------+ + + | Serum or | 2022-04-13 | [facility] | 1.6 | (missing) | (missing) | | plasma | 13:20 | [facility] | | | | | magnesium | | [facility] | | | | | measurement | | | | | | | (mass/volume | | | | | | | ) | | | | | | + + + +-------+ + + + + | Result panel 983 | + + + + + +-------+ + + | Serum or | 2022-04-13 | [facility] | 6.7 | (missing) | (missing) | | plasma | 13:20 | [facility] | | | | | protein | | [facility] | | | | | measurement | | | | | | | (mass/volume | | | | | | | ) | | | | | | + + + +-------+ + + + + | Result panel 984 | + + + + + +-------+ + + | Serum or | 2022-04-13 | [facility] | 2.7 | (missing) | (missing) | | plasma | 13:20 | [facility] | | | | | albumin | | [facility] | | | | | measurement | | | | | | | (mass/volume | | | | | | | ) | | | | | | + + + +-------+ + + + + | Result panel 985 | + + + + + +-------+ + + | Serum | 2022-04-13 | [facility] | 4.0 | (missing) | (missing) | | globulin | 13:20 | [facility] | | | | | measurement | | [facility] | | | | | (mass/volume | | | | | | | ) | | | | | | + + + +-------+ + + + + | Result panel 986 | + + + + + +--------+ + + | Serum or | 2022-04-13 | [facility] | 0.68 | (missing) | (missing) | | plasma | 13:20 | [facility] | | | | | albumin/glob | | [facility] | | | | | ulin mass | | | | | | | ratio | | | | | | + + + +--------+ + + + + | Result panel 987 | + + + + + +-------+ + + | Serum or | 2022-04-13 | [facility] | 1.2 | (missing) | (missing) | | plasma total | 13:20 | [facility] | | | | | bilirubin | | [facility] | | | | | measurement | | | | | | | (mass/volume | | | | | | | ) | | | | | | + + + +-------+ + + + + | Result panel 988 | + + + + + +------+ + + | Serum or | 2022-04-13 | [facility] | 15 | (missing) | (missing) | | plasma | 13:20 | [facility] | | | | | aspartate | | [facility] | | | | | aminotransfe | | | | | | | rase | | | | | | | measurement | | | | | | | (enzymatic | | | | | | | activity/vol | | | | | | | ume) | | | | | | + + + +------+ + + + + | Result panel 989 | + + + + + +------+ + + | Serum or | 2022-04-13 | [facility] | 28 | (missing) | (missing) | | plasma | 13:20 | [facility] | | | | | alanine | | Hospital | | | | | aminotransfe | | | | | | | rase | | | | | | | measurement | | | | | | | (enzymatic | | | | | | | activity/vol | | | | | | | ume) | | | | | | + + + +------+ + + + + | Result panel 990 | + + + + + +------+ + + | Serum or | 2022-04-13 | [facility] | 71 | (missing) | (missing) | | plasma | 13:20 | [facility] | | | | | alkaline | | [facility] | | | | | phosphatase | | | | | | | measurement | | | | | | | (enzymatic | | | | | | | activity/vol | | | | | | | ume) | | | | | | + + + +------+ + + + + | Result panel 991 | + + + + + +-------+---------+ + | | 2022-04-13 | [facility] | 1.6 | mg/dL | (missing) | | (unavailable | 13:20 | [facility] ) | | [facility] | | | | + + + +-------+---------+ + + + | Result panel 992 | + + + + + +-------+ + + | | 2022-04-13 | [facility] | 6.7 | (missing) | (missing) | | (unavailable | 13:20 | [facility] | | [facility] | | | | + + + +-------+ + + + + | Result panel 993 | + + + + + +-------+ + + | | 2022-04-13 | [facility] | 2.7 | (missing) | (missing) | | (unavailable | 13:20 | [facility] | | [facility] | | | | + + + +-------+ + + + + | Result panel 994 | + + + + + +-------+ + + | | 2022-04-13 | [facility] | 4.0 | (missing) | (missing) | | (unavailable | 13:20 | [facility] | | | | + + + +-------+ + + + + | Result panel 995 | + + + + + +--------+ + + | | 2022-04-13 | [facility] | 0.68 | (missing) | (missing) | | (unavailable | 13:20 | [facility] | | | | + + + +--------+ + + + + | Result panel 996 | + + + + + +-------+ + + | | 2022-04-13 | [facility] | 1.2 | (missing) | (missing) | | (unavailable | 13:20 | [facility] | | | | + + + +-------+ + + + + | Result panel 997 | + + + + + +------+ + + | | 2022-04-13 | [facility] | 15 | (missing) | (missing) | | (unavailable | 13:20 | [facility] | [facility] | | | | + + + +------+ + + + + | Result panel 998 | + + + + + +------+ + + | | 2022-04-13 | [facility] | 28 | (missing) | (missing) | | (unavailable | 13:20 | [facility] | | | | + + + +------+ + + + + | Result panel 999 | + + + + + +------+ + + | | 2022-04-13 | [facility] | 71 | (missing) | (missing) | | (unavailable | 13:20 | [facility] | | | | + + + +------+ + + + + | Result panel 1000 | + + + + + +-------+ + + | | 2022-04-13 | [facility] | 7.9 | (missing) | (missing) | | (unavailable | 13:20 | [facility] | | | | + + + +-------+ + + + + | Result panel 1001 | + + + + + +--------+ + + | | 2022-04-13 | [facility] | 4.06 | (missing) | (missing) | | (unavailable | 13:20 | [facility] | | | | + + + +--------+ + + + + | Result panel 1002 | + + + + + +--------+ + + | | 2022-04-13 | [facility] | 10.1 | (missing) | (missing) | | (unavailable | 13:20 | [facility] | | | | + + + +--------+ + + + + | Result panel 1003 | + + + + + +--------+ + + | | 2022-04-13 | [facility] | 31.5 | (missing) | (missing) | | (unavailable | 13:20 | [facility] | | | | + + + +--------+ + + + + | Result panel 1004 | + + + + + +--------+ + + | | 2022-04-13 | [facility] | 77.5 | (missing) | (missing) | | (unavailable | 13:20 | [facility] | | | | + + + +--------+ + + + + | Result panel 1005 | + + + + + +--------+ + + | | 2022-04-13 | [facility] | 24.9 | (missing) | (missing) | | (unavailable | 13:20 | [facility] | | | | + + + +--------+ + + + + | Result panel 1006 | + + + + + +--------+ + + | | 2022-04-13 | [facility] | 32.1 | (missing) | (missing) | | (unavailable | 13:20 | [facility] | | | | + + + +--------+ + + + + | Result panel 1007 | + + + + + +--------+ + + | | 2022-04-13 | [facility] | 15.3 | (missing) | (missing) | | (unavailable | 13:20 | [facility] | | | | + + + +--------+ + + + + | Result panel 1008 | + + + + + +-------+ + + | | 2022-04-13 | [facility] | 304 | (missing) | (missing) | | (unavailable | 13:20 | [facility] | | | | + + + +-------+ + + + + | Result panel 1009 | + + + + + +--------+ + + | | 2022-04-13 | [facility] | 62.8 | (missing) | (missing) | | (unavailable | 13:20 | [facility] | | | | + + + +--------+ + + + + | Result panel 1010 | + + + + + +--------+ + + | | 2022-04-13 | [facility] | 29.8 | (missing) | (missing) | | (unavailable | 13:20 | [facility] | | | | + + + +--------+ + + + + | Result panel 1011 | + + + + + +-------+ + + | | 2022-04-13 | [facility] | 4.2 | (missing) | (missing) | | (unavailable | 13:20 | [facility] | | | | + + + +-------+ + + + + | Result panel 1012 | + + + + + +-------+ + + | | 2022-04-13 | [facility] | 2.3 | (missing) | (missing) | | (unavailable | 13:20 | [facility] | | | | + + + +-------+ + + + + | Result panel 1013 | + + + + + +-------+ + + | | 2022-04-13 | [facility] | 0.9 | (missing) | (missing) | | (unavailable | 13:20 | [facility] | | | | + + + +-------+ + + + + | Result panel 1014 | + + + + + +-------+---------+ + | | 2022-04-13 | [facility] | 293 | mg/dL | (missing) | | (unavailable | 13:20 | [facility] | | | | + + + +-------+---------+ + + + | Result panel 1015 | + + + + + +------+---------+ + | | 2022-04-13 | [facility] | 25 | mg/dL | (missing) | | (unavailable | 13:20 | [facility] | | | | + + + +------+---------+ + + + | Result panel 1016 | + + + + + +--------+---------+ + | | 2022-04-13 | [facility] | 0.92 | mg/dL | (missing) | | (unavailable | 13:20 | [facility] | | | | + + + +--------+---------+ + + + | Result panel 1017 | + + + + + +------+ + + | | 2022-04-13 | [facility] | 79 | (missing) | (missing) | | (unavailable | 13:20 | [facility] | | | | + + + +------+ + + + + | Result panel 1018 | + + + + + +---------+ + + | | 2022-04-13 | [facility] | 27.17 | (missing) | (missing) | | (unavailable | 13:20 | [facility] | | | | + + + +---------+ + + + + | Result panel 1019 | + + + + + +-------+ + + | | 2022-04-13 | [facility] | 135 | (missing) | (missing) | | (unavailable | 13:20 | [facility] | | | | + + + +-------+ + + + + | Result panel 1020 | + + + + + +-------+ + + | | 2022-04-13 | [facility] | 4.8 | (missing) | (missing) | | (unavailable | 13:20 | [facility] | | | | + + + +-------+ + + + + | Result panel 1021 | + + + + + +-------+ + + | | 2022-04-13 | [facility] | 102 | (missing) | (missing) | | (unavailable | 13:20 | [facility] | | | | + + + +-------+ + + + + | Result panel 1022 | + + + + + +------+ + + | | 2022-04-13 | [facility] | 24 | (missing) | (missing) | | (unavailable | 13:20 | [facility] | | | | + + + +------+ + + + + | Result panel 1023 | + + + + + +--------+ + + | | 2022-04-13 | [facility] | 13.8 | (missing) | (missing) | | (unavailable | 13:20 | [facility] | | | | + + + +--------+ + + + + | Result panel 1024 | + + + + + +-------+---------+ + | | 2022-04-13 | [facility] | 8.6 | mg/dL | (missing) | | (unavailable | 13:20 | [facility] | | | | + + + +-------+---------+ + + + | Result panel 1025 | + + + + + +-------+---------+ + | | 2022-04-13 | [facility] | 1.6 | mg/dL | (missing) | | (unavailable | 13:20 | [facility] | | | | + + + +-------+---------+ + + + | Result panel 1026 | + + + + + +-------+ + + | | 2022-04-13 | [facility] | 6.7 | (missing) | (missing) | | (unavailable | 13:20 | [facility] | | | | + + + +-------+ + + + + | Result panel 1027 | + + + + + +-------+ + + | | 2022-04-13 | [facility] | 2.7 | (missing) | (missing) | | (unavailable | 13:20 | [facility] | | | | + + + +-------+ + + + + | Result panel 1028 | + + + + + +-------+ + + | | 2022-04-13 | [facility] | 4.0 | (missing) | (missing) | | (unavailable | 13:20 | [facility] | | | | + + + +-------+ + + + + | Result panel 1029 | + + + + + +--------+ + + | | 2022-04-13 | [facility] | 0.68 | (missing) | (missing) | | (unavailable | 13:20 | [facility] | | | | + + + +--------+ + + + + | Result panel 1030 | + + + + + +-------+ + + | | 2022-04-13 | [facility] | 1.2 | (missing) | (missing) | | (unavailable | 13:20 | [facility] | | | | + + + +-------+ + + + + | Result panel 1031 | + + + + + +------+ + + | | 2022-04-13 | [facility] | 15 | (missing) | (missing) | | (unavailable | 13:20 | [facility] | | | | + + + +------+ + + + + | Result panel 1032 | + + + + + +------+ + + | | 2022-04-13 | [facility] | 28 | (missing) | (missing) | | (unavailable | 13:20 | [facility] | | | | + + + +------+ + + + + | Result panel 1033 | + + + + + +------+ + + | | 2022-04-13 | [facility] | 71 | (missing) | (missing) | | (unavailable | 13:20 | [facility] | | | | + + + +------+ + + + + | Result panel 1034 | + + + + + +-------+ + + | | 2022-04-13 | [facility] | 9.5 | (missing) | (missing) | | (unavailable | 15:49 | [facility] | | | | + + + +-------+ + + + + | Result panel 1035 | + + + + + +-------+ + + | | 2022-04-19 | [facility] | 8.6 | (missing) | (missing) | | (unavailable | 12:01 | [facility] | | | | + + + +-------+ + + + + | Result panel 1036 | + + + + + +--------+ + + | | 2022-04-19 | [facility] | 3.90 | (missing) | (missing) | | (unavailable | 12:01 | [facility] | | | | + + + +--------+ + + + + | Result panel 1037 | + + + + + +--------+ + + | | 2022-04-19 | [facility] | 10.0 | (missing) | (missing) | | (unavailable | 12:01 | [facility] | | | | + + + +--------+ + + + + | Result panel 1038 | + + + + + +--------+ + + | | 2022-04-19 | [facility] | 30.1 | (missing) | (missing) | | (unavailable | 12:01 | [facility] | | | | + + + +--------+ + + + + | Result panel 1039 | + + + + + +--------+ + + | | 2022-04-19 | [facility] | 77.4 | (missing) | (missing) | | (unavailable | 12:01 | [facility] | | | | + + + +--------+ + + + + | Result panel 1040 | + + + + + +--------+ + + | | 2022-04-19 | [facility] | 25.7 | (missing) | (missing) | | (unavailable | 12:01 | [facility] | | | | + + + +--------+ + + + + | Result panel 1041 | + + + + + +--------+ + + | | 2022-04-19 | [facility] | 33.3 | (missing) | (missing) | | (unavailable | 12:01 | [facility] | | | | + + + +--------+ + + + + | Result panel 1042 | + + + + + +--------+ + + | | 2022-04-19 | [facility] | 15.1 | (missing) | (missing) | | (unavailable | 12:01 | [facility] | | | | + + + +--------+ + + + + | Result panel 1043 | + + + + + +-------+ + + | | 2022-04-19 | [facility] | 292 | (missing) | (missing) | | (unavailable | 12:01 | [facility] | | | | + + + +-------+ + + + + | Result panel 1044 | + + + + + +--------+ + + | | 2022-04-19 | [facility] | 60.9 | (missing) | (missing) | | (unavailable | 12:01 | [facility] | | | | + + + +--------+ + + + + | Result panel 1045 | + + + + + +--------+ + + | | 2022-04-19 | [facility] | 30.6 | (missing) | (missing) | | (unavailable | 12:01 | [facility] | | | | + + + +--------+ + + + + | Result panel 1046 | + + + + + +-------+ + + | | 2022-04-19 | [facility] | 5.1 | (missing) | (missing) | | (unavailable | 12:01 | [facility] | | | | + + + +-------+ + + + + | Result panel 1047 | + + + + + +-------+ + + | | 2022-04-19 | [facility] | 2.5 | (missing) | (missing) | | (unavailable | 12:01 | [facility] | | | | + + + +-------+ + + + + | Result panel 1048 | + + + + + +-------+ + + | | 2022-04-19 | [facility] | 0.9 | (missing) | (missing) | | (unavailable | 12:01 | [facility] | | | | + + + +-------+ + + + + | Result panel 1049 | + + + + + +-------+---------+ + | | 2022-04-19 | [facility] | 234 | mg/dL | (missing) | | (unavailable | 12:01 | [facility] | | | | + + + +-------+---------+ + + + | Result panel 1050 | + + + + + +------+---------+ + | | 2022-04-19 | [facility] | 25 | mg/dL | (missing) | | (unavailable | 12:01 | [facility] | | | | + + + +------+---------+ + + + | Result panel 1051 | + + + + + +--------+---------+ + | | 2022-04-19 | [facility] | 0.84 | mg/dL | (missing) | | (unavailable | 12:01 | [facility] | | | | + + + +--------+---------+ + + + | Result panel 1052 | + + + + + +------+ + + | | 2022-04-19 | [facility] | 88 | (missing) | (missing) | | (unavailable | 12:01 | [facility] | | | | + + + +------+ + + + + | Result panel 1053 | + + + + + +---------+ + + | | 2022-04-19 | [facility] | 29.76 | (missing) | (missing) | | (unavailable | 12:01 | [facility] | | | | + + + +---------+ + + + + | Result panel 1054 | + + + + + +-------+ + + | | 2022-04-19 | [facility] | 136 | (missing) | (missing) | | (unavailable | 12:01 | [facility] | | | | + + + +-------+ + + + + | Result panel 1055 | + + + + + +-------+ + + | | 2022-04-19 | [facility] | 4.5 | (missing) | (missing) | | (unavailable | 12:01 | [facility] | | | | + + + +-------+ + + + + | Result panel 1056 | + + + + + +-------+ + + | | 2022-04-19 | [facility] | 102 | (missing) | (missing) | | (unavailable | 12:01 | [facility] | | | | + + + +-------+ + + + + | Result panel 1057 | + + + + + +------+ + + | | 2022-04-19 | [facility] | 26 | (missing) | (missing) | | (unavailable | 12:01 | [facility] | | | | + + + +------+ + + + + | Result panel 1058 | + + + + + +--------+ + + | | 2022-04-19 | [facility] | 12.5 | (missing) | (missing) | | (unavailable | 12:01 | [facility] | | | | + + + +--------+ + + + + | Result panel 1059 | + + + + + +-------+---------+ + | | 2022-04-19 | [facility] | 8.5 | mg/dL | (missing) | | (unavailable | 12:01 | [facility] | | | | + + + +-------+---------+ + + + | Result panel 1060 | + + + + + +-------+ + + | | 2022-04-19 | [facility] | 8.9 | (missing) | (missing) | | (unavailable | 13:27 | [facility] | | | | + + + +-------+ + + + + | CRP SerPl Ql | + + + + + +---------+ + + | CRP SerPl | 2022-01-24 | [facility] | < 0.0 | (missing) | (missing) | | Ql | 15:21 | [facility] | | | | + + + +---------+ + + + + | Automated urine sediment erythrocyte count by microscopy (number/high power field) | + + + + + +--------+ + + | Automated | 2022-02-01 | [facility] | 7-11 | (missing) | (missing) | | urine | 16:09 | [facility] | | | | sediment | | [facility] | | | | | erythrocyte | | | | | | | count by | | | | | | | microscopy | | | | | | | (number/high | | | | | | | power | | | | | | | field) | | | | | | + + + +--------+ + + + + | Automated urine sediment erythrocyte count by microscopy (number/high power field) | + + + + + +-------+ + + | Automated | 2022-01-22 | [facility] | 4-6 | (missing) | (missing) | | urine | 19:30 | [facility] | | | | sediment | | [facility] | | | | | erythrocyte | | | | | | | count by | | | | | | | microscopy | | | | | | | (number/high | | | | | | | power | | | | | | | field) | | | | | | + + + +-------+ + + + + | Serum or plasma alanine aminotransferase measurement (enzymatic activity/volume) | + + + + + +------+ + + | Serum or | 2022-03-17 | [facility] | 23 | (missing) | (missing) | | plasma | 15:04 | [facility] | | | | alanine | | [facility] | | | | | aminotransfe | | | | | | | rase | | | | | | | measurement | | | | | | | (enzymatic | | | | | | | activity/vol | | | | | | | ume) | | | | | | + + + +------+ + + + + | Serum or plasma alanine aminotransferase measurement (enzymatic activity/volume) | + + + + + +------+ + + | Serum or | 2022-02-28 | [facility] | 40 | (missing) | (missing) | | plasma | 16:56 | [facility] | | | | alanine | | [facility] | | | | | aminotransfe | | | | | | | rase | | | | | | | measurement | | | | | | | (enzymatic | | | | | | | activity/vol | | | | | | | ume) | | | | | | + + + +------+ + + | Serum or | 2022-03-25 | [facility] | 28 | (missing) | (missing) | | plasma | 16:07 | [facility] | | | | alanine | | [facility] | | | | | aminotransfe | | | | | | | rase | | | | | | | measurement | | | | | | | (enzymatic | | | | | | | activity/vol | | | | | | | ume) | | | | | | + + + +------+ + + + + | Serum or plasma alanine aminotransferase measurement (enzymatic activity/volume) | + + + + + +------+ + + | Serum or | 2022-01-03 | [facility] | 25 | (missing) | (missing) | | plasma | 15:10 | [facility] | | | | alanine | | [facility] | | | | | aminotransfe | | | | | | | rase | | | | | | | measurement | | | | | | | (enzymatic | | | | | | | activity/vol | | | | | | | ume) | | | | | | + + + +------+ + + | Serum or | 2022-01-24 | [facility] | 18 | (missing) | (missing) | | plasma | 15:21 | [facility] | | | | alanine | | [facility] | | | | | aminotransfe | | | | | | | rase | | | | | | | measurement | | | | | | | (enzymatic | | | | | | | activity/vol | | | | | | | ume) | | | | | | + + + +------+ + + | Serum or | 2022-04-13 | [facility] | 28 | (missing) | (missing) | | plasma | 13:20 | [facility] | | | | alanine | | [facility] | | | | | aminotransfe | | | | | | | rase | | | | | | | measurement | | | | | | | (enzymatic | | | | | | | activity/vol | | | | | | | ume) | | | | | | + + + +------+ + + + + | Serum or plasma alanine aminotransferase measurement (enzymatic activity/volume) | + + + + + +------+ + + | Serum or | 2022-03-26 | [facility] | 29 | (missing) | (missing) | | plasma | 21:54 | [facility] | | | | alanine | | [facility] | | | | | aminotransfe | | | | | | | rase | | | | | | | measurement | | | | | | | (enzymatic | | | | | | | activity/vol | | | | | | | ume) | | | | | | + + + +------+ + + + + | Serum or plasma alanine aminotransferase measurement (enzymatic activity/volume) | + + + + + +------+ + + | Serum or | 2022-04-04 | [facility] | 33 | (missing) | (missing) | | plasma | 16:35 | [facility] | | | | alanine | | [facility] | | | | | aminotransfe | | | | | | | rase | | | | | | | measurement | | | | | | | (enzymatic | | | | | | | activity/vol | | | | | | | ume) | | | | | | + + + +------+ + + | Serum or | 2022-04-06 | [facility] | 14 | (missing) | (missing) | | plasma | 15:17 | [facility] | | | | alanine | | [facility] | | | | | aminotransfe | | | | | | | rase | | | | | | | measurement | | | | | | | (enzymatic | | | | | | | activity/vol | | | | | | | ume) | | | | | | + + + +------+ + + + + | Serum or plasma alanine aminotransferase measurement (enzymatic activity/volume) | + + + + + +------+ + + | Serum or | 2022-01-22 | [facility] | 20 | (missing) | (missing) | | plasma | 17:25 | [facility] | | | | alanine | | [facility] | | | | | aminotransfe | | | | | | | rase | | | | | | | measurement | | | | | | | (enzymatic | | | | | | | activity/vol | | | | | | | ume) | | | | | | + + + +------+ + + + + | Serum or plasma albumin measurement (mass/volume) | + + + + + +-------+ + + | Serum or | 2022-03-17 | [facility] | 2.6 | (missing) | (missing) | | plasma | 15:04 | [facility] | | | | albumin | | [facility] | | | | | measurement | | | | | | | (mass/volume | | | | | | | ) | | | | | | + + + +-------+ + + + + | Serum or plasma albumin measurement (mass/volume) | + + + + + +-------+ + + | Serum or | 2022-03-25 | [facility] | 3.1 | (missing) | (missing) | | plasma | 16:07 | [facility] | albumin | | [facility] | | | | | measurement | | | | | | | (mass/volume | | | | | | | ) | | | | | | + + + +-------+ + + + + | Serum or plasma albumin measurement (mass/volume) | + + + + + +-------+ + + | Serum or | 2022-01-03 | [facility] | 2.7 | (missing) | (missing) | | plasma | 15:10 | [facility] | albumin | | [facility] | | | | | measurement | | | | | | | (mass/volume | | | | | | | ) | | | | | | + + + +-------+ + + | Serum or | 2022-01-24 | [facility] | 2.8 | (missing) | (missing) | | plasma | 15:21 | [facility] | | | | albumin | | [facility] | | | | | measurement | | | | | | | (mass/volume | | | | | | | ) | | | | | | + + + +-------+ + + | Serum or | 2022-02-28 | [facility] | 2.8 | (missing) | (missing) | | plasma | 16:56 | [facility] | | | | albumin | | [facility] | | | | | measurement | | | | | | | (mass/volume | | | | | | | ) | | | | | | + + + +-------+ + + | Serum or | 2022-04-13 | [facility] | 2.7 | (missing) | (missing) | | plasma | 13:20 | [facility] | | | | albumin | | [facility] | | | | | measurement | | | | | | | (mass/volume | | | | | | | ) | | | | | | + + + +-------+ + + + + | Serum or plasma albumin measurement (mass/volume) | + + + + + +-------+ + + | Serum or | 2022-03-26 | [facility] | 2.7 | (missing) | (missing) | | plasma | 21:54 | [facility] | | | | albumin | | [facility] | | | | | measurement | | | | | | | (mass/volume | | | | | | | ) | | | | | | + + + +-------+ + + + + | Serum or plasma albumin measurement (mass/volume) | + + + + + +-------+ + + | Serum or | 2022-04-04 | [facility] | 3.1 | (missing) | (missing) | | plasma | 16:35 | [facility] | albumin | | [facility] | | | | | measurement | | | | | | | (mass/volume | | | | | | | ) | | | | | | + + + +-------+ + + | Serum or | 2022-04-06 | [facility] | 2.9 | (missing) | (missing) | | plasma | 15:17 | [facility] | | | | albumin | | [facility] | | | | | measurement | | | | | | | (mass/volume | | | | | | | ) | | | | | | + + + +-------+ + + + + | Serum or plasma albumin measurement (mass/volume) | + + + + + +-------+ + + | Serum or | 2022-01-22 | [facility] | 2.9 | (missing) | (missing) | | plasma | 17:25 | [facility] | | | | albumin | | [facility] | | | | | measurement | | | | | | | (mass/volume | | | | | | | ) | | | | | | + + + +-------+ + + + + | Serum or plasma albumin/globulin mass ratio | + + + + + +--------+ + + | Serum or | 2022-03-17 | [facility] | 0.67 | (missing) | (missing) | | plasma | 15:04 | [facility] | | | | albumin/glob | | [facility] | | | | | ulin mass | | | | | | | ratio | | | | | | + + + +--------+ + + + + | Serum or plasma albumin/globulin mass ratio | + + + + + +--------+ + + | Serum or | 2022-03-25 | [facility] | 0.72 | (missing) | (missing) | | plasma | 16:07 | [facility] | | | | albumin/glob | | [facility] | | | | | ulin mass | | | | | | | ratio | | | | | | + + + +--------+ + + + + | Serum or plasma albumin/globulin mass ratio | + + + + + +--------+ + + | Serum or | 2022-01-03 | [facility] | 0.49 | (missing) | (missing) | | plasma | 15:10 | [facility] | | | | albumin/glob | | [facility] | | | | | ulin mass | | | | | | | ratio | | | | | | + + + +--------+ + + | Serum or | 2022-01-24 | [facility] | 0.58 | (missing) | (missing) | | plasma | 15:21 | [facility] | | | | albumin/glob | | [facility] | | | | | ulin mass | | | | | | | ratio | | | | | | + + + +--------+ + + | Serum or | 2022-02-28 | [facility] | 0.72 | (missing) | (missing) | | plasma | 16:56 | [facility] | | | | albumin/glob | | [facility] | | | | | ulin mass | | | | | | | ratio | | | | | | + + + +--------+ + + | Serum or | 2022-04-13 | [facility] | 0.68 | (missing) | (missing) | | plasma | 13:20 | [facility] | | | | | albumin/glob | | [facility] | | | | | ulin mass | | | | | | | ratio | | | | | | + + + +--------+ + + + + | Serum or plasma albumin/globulin mass ratio | + + + + + +--------+ + + | Serum or | 2022-03-26 | [facility] | 0.61 | (missing) | (missing) | | plasma | 21:54 | [facility] | | | | albumin/glob | | [facility] | | | | | ulin mass | | | | | | | ratio | | | | | | + + + +--------+ + + + + | Serum or plasma albumin/globulin mass ratio | + + + + + +--------+ + + | Serum or | 2022-04-04 | [facility] | 0.72 | (missing) | (missing) | | plasma | 16:35 | [facility] | | | | albumin/glob | | [facility] | | | | | ulin mass | | | | | | | ratio | | | | | | + + + +--------+ + + | Serum or | 2022-04-06 | [facility] | 0.71 | (missing) | (missing) | | plasma | 15:17 | [facility] | | | | albumin/glob | | [facility] | | | | | ulin mass | | | | | | | ratio | | | | | | + + + +--------+ + + + + | Serum or plasma albumin/globulin mass ratio | + + + + + +--------+ + + | Serum or | 2022-01-22 | [facility] | 0.66 | (missing) | (missing) | | plasma | 17:25 | [facility] | | | | albumin/glob | | [facility] | | | | | ulin mass | | | | | | | ratio | | | | | | + + + +--------+ + + + + | Serum or plasma calcium measurement (mass/volume) | + + + + + +-------+ + + | Serum or | 2022-03-17 | [facility] | 8.1 | (missing) | (missing) | | plasma | 15:04 | [facility] | | | | calcium | | [facility] | | | | | measurement | | | | | | | (mass/volume | | | | | | | ) | | | | | | + + + +-------+ + + | Serum or | 2022-03-25 | [facility] | 8.4 | (missing) | (missing) | | plasma | 16:07 | [facility] | | | | calcium | | [facility] | | | | | measurement | | | | | | | (mass/volume | | | | | | | ) | | | | | | + + + +-------+ + + + + | Serum or plasma calcium measurement (mass/volume) | + + + + + +-------+ + + | Serum or | 2022-01-03 | [facility] | 8.7 | (missing) | (missing) | | plasma | 15:10 | [facility] | | | | calcium | | [facility] | | | | | measurement | | | | | | | (mass/volume | | | | | | | ) | | | | | | + + + +-------+ + + | Serum or | 2022-01-24 | [facility] | 8.6 | (missing) | (missing) | | plasma | 15:21 | [facility] | | | | calcium | | [facility] | | | | | measurement | | | | | | | (mass/volume | | | | | | | ) | | | | | | + + + +-------+ + + | Serum or | 2022-02-28 | [facility] | 8.5 | (missing) | (missing) | | plasma | 16:56 | [facility] | | | | calcium | | [facility] | | | | | measurement | | | | | | | (mass/volume | | | | | | | ) | | | | | | + + + +-------+ + + | Serum or | 2022-04-13 | [facility] | 8.6 | (missing) | (missing) | | plasma | 13:20 | [facility] | | | | calcium | | [facility] | | | | | measurement | | | | | | | (mass/volume | | | | | | | ) | | | | | | + + + +-------+ + + | Serum or | 2022-04-19 | [facility] | 8.5 | (missing) | (missing) | | plasma | 12:01 | [facility] | | | | calcium | | [facility] | | | | | measurement | | | | | | | (mass/volume | | | | | | | ) | | | | | | + + + +-------+ + + + + | Serum or plasma calcium measurement (mass/volume) | + + + + + +-------+ + + | Serum or | 2022-03-26 | [facility] | 8.6 | (missing) | (missing) | | plasma | 21:54 | [facility] | | | | calcium | | [facility] | | | | | measurement | | | | | | | (mass/volume | | | | | | | ) | | | | | | + + + +-------+ + + + + | Serum or plasma calcium measurement (mass/volume) | + + + + + +-------+ + + | Serum or | 2022-04-04 | [facility] | 8.4 | (missing) | (missing) | | plasma | 16:35 | [facility] | | | | calcium | | [facility] | | | | | measurement | | | | | | | (mass/volume | | | | | | | ) | | | | | | + + + +-------+ + + | Serum or | 2022-04-06 | [facility] | 8.3 | (missing) | (missing) | | plasma | 15:17 | [facility] | | | | calcium | | [facility] | | | | | measurement | | | | | | | (mass/volume | | | | | | | ) | | | | | | + + + +-------+ + + + + | Serum or plasma calcium measurement (mass/volume) | + + + + + +-------+ + + | Serum or | 2022-01-22 | [facility] | 8.3 | (missing) | (missing) | | plasma | 17:25 | [facility] | | | | calcium | | [facility] | | | | | measurement | | | | | | | (mass/volume | | | | | | | ) | | | | | | + + + +-------+ + + + + | Serum or plasma anion gap 4 | + + + + + +--------+ + + | Serum or | 2022-03-17 | [facility] | 12.7 | (missing) | (missing) | | plasma anion | 15:04 | [facility] | | | | gap 4 | | [facility] | | | | + + + +--------+ + + | Serum or | 2022-03-25 | [facility] | 13.2 | (missing) | (missing) | | plasma anion | 16:07 | [facility] | | | | gap 4 | | [facility] | | | | + + + +--------+ + + + + | Serum or plasma anion gap 4 | + + + + + +--------+ + + | Serum or | 2022-01-03 | [facility] | 14.0 | (missing) | (missing) | | plasma anion | 15:10 | [facility] | | | | gap 4 | [facility] | | | | + + + +--------+ + + | Serum or | 2022-01-24 | [facility] | 13.5 | (missing) | (missing) | | plasma anion | 15:21 | [facility] | | | | gap 4 | | [facility] | | | | + + + +--------+ + + | Serum or | 2022-02-28 | [facility] | 15.1 | (missing) | (missing) | | plasma anion | 16:56 | [facility] | | | | gap 4 | | [facility] | | | | + + + +--------+ + + | Serum or | 2022-04-13 | [facility] | 13.8 | (missing) | (missing) | | plasma anion | 13:20 | [facility] | | | | gap 4 | | [facility] | | | | + + + +--------+ + + | Serum or | 2022-04-19 | [facility] | 12.5 | (missing) | (missing) | | plasma anion | 12:01 | [facility] | | | | gap 4 | | [facility] | | | | + + + +--------+ + + + + | Serum or plasma anion gap 4 | + + + + + +--------+ + + | Serum or | 2022-03-26 | [facility] | 13.0 | (missing) | (missing) | | plasma anion | 21:54 | [facility] | | | | gap 4 | | [facility] | | | | + + + +--------+ + + + + | Serum or plasma anion gap 4 | + + + + + +--------+ + + | Serum or | 2022-04-04 | [facility] | 14.8 | (missing) | (missing) | | plasma anion | 16:35 | [facility] | | | | gap 4 | | [facility] | | | | + + + +--------+ + + | Serum or | 2022-04-06 | [facility] | 13.7 | (missing) | (missing) | | plasma anion | 15:17 | [facility] | | | | gap 4 | | [facility] | | | | + + + +--------+ + + + + | Serum or plasma anion gap 4 | + + + + + +--------+ + + | Serum or | 2022-01-22 | [facility] | 11.5 | (missing) | (missing) | | plasma anion | 17:25 | [facility] | | | | gap 4 | | [facility] | | | | + + + +--------+ + + + + | Serum or plasma magnesium measurement (mass/volume) | + + + + + +-------+ + + | Serum or | 2022-03-25 | [facility] | 1.7 | (missing) | (missing) | | plasma | 16:07 | [facility] | | | | magnesium | | [facility] | | | | | measurement | | | | | | | (mass/volume | | | | | | | ) | | | | | | + + + +-------+ + + + + | Serum or plasma magnesium measurement (mass/volume) | + + + + + +-------+ + + | Serum or | 2022-01-03 | [facility] | 1.6 | (missing) | (missing) | | plasma | 15:10 | [facility] | | | | magnesium | | [facility] | | | | | measurement | | | | | | | (mass/volume | | | | | | | ) | | | | | | + + + +-------+ + + | Serum or | 2022-01-24 | [facility] | 1.6 | (missing) | (missing) | | plasma | 15:21 | [facility] | | | | magnesium | | [facility] | | | | | measurement | | | | | | | (mass/volume | | | | | | | ) | | | | | | + + + +-------+ + + | Serum or | 2022-02-28 | [facility] | 1.5 | (missing) | (missing) | | plasma | 16:56 | [facility] | | | | magnesium | | [facility] | | | | | measurement | | | | | | | (mass/volume | | | | | | | ) | | | | | | + + + +-------+ + + | Serum or | 2022-04-13 | [facility] | 1.6 | (missing) | (missing) | | plasma | 13:20 | [facility] | | | | | magnesium | | [facility] | | | | | measurement | | | | | | | (mass/volume | | | | | | | ) | | | | | | + + + +-------+ + + + + | Serum or plasma magnesium measurement (mass/volume) | + + + + + +-------+ + + | Serum or | 2022-03-26 | [facility] | 1.6 | (missing) | (missing) | | plasma | 21:54 | [facility] | | | | magnesium | | [facility] | | | | | measurement | | | | | | | (mass/volume | | | | | | | ) | | | | | | + + + +-------+ + + + + | Serum or plasma magnesium measurement (mass/volume) | + + + + + +-------+ + + | Serum or | 2022-04-04 | [facility] | 1.7 | (missing) | (missing) | | plasma | 16:35 | [facility] | | | | magnesium | | [facility] | | | | | measurement | | | | | | | (mass/volume | | | | | | | ) | | | | | | + + + +-------+ + + | Serum or | 2022-04-06 | [facility] | 1.6 | (missing) | (missing) | | plasma | 15:17 | [facility] | | | | magnesium | | [facility] | | | | | measurement | | | | | | | (mass/volume | | | | | | | ) | | | | | | + + + +-------+ + + + + | Urinalysis specimen collection method | + + + + + + + + + | Urinalysis | 2022-02-01 | [facility] | CLEAN CATCH | (missing) | (missing) | | specimen | 16:09 | [facility] | | | [facility] collection | | [facility] | | | | | method | | | | | | + + + + + + + + + | Urinalysis specimen collection method | + + + + + + + + + | Urinalysis | 2022-01-22 | [facility] | CLEAN CATCH | (missing) | (missing) | | specimen | 19:30 | [facility] | | | | | collection | | [facility] | | | | | method | | | | | | + + + + + + + + + | Serum or plasma aspartate aminotransferase measurement (enzymatic activity/volume) | + + + + + +------+ + + | Serum or | 2022-03-17 | [facility] | 14 | (missing) | (missing) | | plasma | 15:04 | [facility] | | | | | aspartate | | Hospital | | | | | aminotransfe | | | | | | | rase | | | | | | | measurement | | | | | | | (enzymatic | | | | | | | activity/vol | | | | | | | ume) | | | | | | + + + +------+ + + + + | Serum or plasma aspartate aminotransferase measurement (enzymatic activity/volume) | + + + + + +------+ + + | Serum or | 2022-02-28 | [facility] | 26 | (missing) | (missing) | | plasma | 16:56 | [facility] | | | | | aspartate | | Hospital | | | | | aminotransfe | | | | | | | rase | | | | | | | measurement | | | | | | | (enzymatic | | | | | | | activity/vol | | | | | | | ume) | | | | | | + + + +------+ + + | Serum or | 2022-03-25 | [facility] | 22 | (missing) | (missing) | | plasma | 16:07 | [facility] | | | | | aspartate | | Hospital | | | | | aminotransfe | | | | | | | rase | | | | | | | measurement | | | | | | | (enzymatic | | | | | | | activity/vol | | | | | | | ume) | | | | | | + + + +------+ + + + + | Serum or plasma aspartate aminotransferase measurement (enzymatic activity/volume) | + + + + + +------+ + + | Serum or | 2022-01-03 | [facility] | 56 | (missing) | (missing) | | plasma | 15:10 | [facility] | | | | | aspartate | | [facility] | | | | | aminotransfe | | | | | | | rase | | | | | | | measurement | | | | | | | (enzymatic | | | | | | | activity/vol | | | | | | | ume) | | | | | | + + + +------+ + + | Serum or | 2022-01-24 | [facility] | 19 | (missing) | (missing) | | plasma | 15:21 | [facility] | | | | | aspartate | | Hospital | | | | | aminotransfe | | | | | | | rase | | | | | | | measurement | | | | | | | (enzymatic | | | | | | | activity/vol | | | | | | | ume) | | | | | | + + + +------+ + + | Serum or | 2022-04-13 | [facility] | 15 | (missing) | (missing) | | plasma | 13:20 | [facility] | | | | | aspartate | | Hospital | | | | | aminotransfe | | | | | | | rase | | | | | | | measurement | | | | | | | (enzymatic | | | | | | | activity/vol | | | | | | | ume) | | | | | | + + + +------+ + + + + | Serum or plasma aspartate aminotransferase measurement (enzymatic activity/volume) | + + + + + +------+ + + | Serum or | 2022-03-26 | [facility] | 20 | (missing) | (missing) | | plasma | 21:54 | [facility] | | | | aspartate | | [facility] | | | | | aminotransfe | | | | | | | rase | | | | | | | measurement | | | | | | | (enzymatic | | | | | | | activity/vol | | | | | | | ume) | | | | | | + + + +------+ + + + + | Serum or plasma aspartate aminotransferase measurement (enzymatic activity/volume) | + + + + + +------+ + + | Serum or | 2022-04-04 | [facility] | 17 | (missing) | (missing) | | plasma | 16:35 | [facility] | | | | | aspartate | | [facility] | | | | | aminotransfe | | | | | | | rase | | | | | | | measurement | | | | | | | (enzymatic | | | | | | | activity/vol | | | | | | | ume) | | | | | | + + + +------+ + + | Serum or | 2022-04-06 | [facility] | 10 | (missing) | (missing) | | plasma | 15:17 | [facility] | | | | | aspartate | | [facility] | | | | | aminotransfe | | | | | | | rase | | | | | | | measurement | | | | | | | (enzymatic | | | | | | | activity/vol | | | | | | | ume) | | | | | | + + + +------+ + + + + | Serum or plasma aspartate aminotransferase measurement (enzymatic activity/volume) | + + + + + +------+ + + | Serum or | 2022-01-22 | [facility] | 15 | (missing) | (missing) | | plasma | 17:25 | [facility] | | | | | aspartate | | [facility] | | | | | aminotransfe | | | | | | | rase | | | | | | | measurement | | | | | | | (enzymatic | | | | | | | activity/vol | | | | | | | ume) | | | | | | + + + +------+ + + + + | Character of Urine | + + + + + + + + + | Character | 2022-01-22 | [facility] | [facility] | (missing) | (missing) | | of Urine | 19:30 | [facility] | | | | + + + + + + + + + | Serum or plasma total bilirubin measurement (mass/volume) | + + + + + +-------+ + + | Serum or | 2022-03-17 | [facility] | 1.0 | (missing) | (missing) | | plasma total | 15:04 | [facility] | | | | | bilirubin | | [facility] | | | | | measurement | | | | | | | (mass/volume | | | | | | | ) | | | | | | + + + +-------+ + + + + | Serum or plasma total bilirubin measurement (mass/volume) | + + + + + +-------+ + + | Serum or | 2022-03-25 | [facility] | 1.7 | (missing) | (missing) | | plasma total | 16:07 | [facility] | | | | bilirubin | | [facility] | | | | | measurement | | | | | | | (mass/volume | | | | | | | ) | | | | | | + + + +-------+ + + + + | Serum or plasma total bilirubin measurement (mass/volume) | + + + + + +-------+ + + | Serum or | 2022-01-03 | [facility] | 0.9 | (missing) | (missing) | | plasma total | 15:10 | [facility] | | | | bilirubin | | [facility] | | | | | measurement | | | | | | | (mass/volume | | | | | | | ) | | | | | | + + + +-------+ + + | Serum or | 2022-01-24 | [facility] | 0.9 | (missing) | (missing) | | plasma total | 15:21 | [facility] | | | | | bilirubin | | [facility] | | | | | measurement | | | | | | | (mass/volume | | | | | | | ) | | | | | | + + + +-------+ + + | Serum or | 2022-04-13 | [facility] | 1.2 | (missing) | (missing) | | plasma total | 13:20 | [facility] | | | | | bilirubin | | [facility] | | | | | measurement | | | | | | | (mass/volume | | | | | | | ) | | | | | | + + + +-------+ + + + + | Serum or plasma total bilirubin measurement (mass/volume) | + + + + + +-------+ + + | Serum or | 2022-03-26 | [facility] | 1.3 | (missing) | (missing) | | plasma total | 21:54 | [facility] | | | | bilirubin | | [facility] | | | | | measurement | | | | | | | (mass/volume | | | | | | | ) | | | | | | + + + +-------+ + + + + | Serum or plasma total bilirubin measurement (mass/volume) | + + + + + +-------+ + + | Serum or | 2022-04-04 | [facility] | 1.1 | (missing) | (missing) | | plasma total | 16:35 | [facility] | | | | bilirubin | | [facility] | | | | | measurement | | | | | | | (mass/volume | | | | | | | ) | | | | | | + + + +-------+ + + | Serum or | 2022-04-06 | [facility] | 1.0 | (missing) | (missing) | | plasma total | 15:17 | [facility] | | | | | bilirubin | | [facility] | | | | | measurement | | | | | | | (mass/volume | | | | | | | ) | | | | | | + + + +-------+ + + + + | Serum or plasma total bilirubin measurement (mass/volume) | + + + + + +-------+ + + | Serum or | 2022-01-22 | [facility] | 1.0 | (missing) | (missing) | | plasma total | 17:25 | [facility] | | | | bilirubin | | [facility] | | | | | measurement | | | | | | | (mass/volume | | | | | | | ) | | | | | | + + + +-------+ + + + + | Serum or plasma carbon dioxide, total measurement (moles/volume) | + + + + + +------+ + + | Serum or | 2022-03-17 | [facility] | 23 | (missing) | (missing) | | plasma | 15:04 | [facility] | | | | | carbon | | [facility] | | | | | dioxide, | | | | | | | total | | | | | | | measurement | | | | | | | (moles/volum | | | | | | | e) | | | | | | + + + +------+ + + | Serum or | 2022-03-25 | [facility] | 26 | (missing) | (missing) | | plasma | 16:07 | [facility] | | | | | carbon | | [facility] | | | | | dioxide, | | | | | | | total | | | | | | | measurement | | | | | | | (moles/volum | | | | | | | e) | | | | | | + + + +------+ + + + + | Serum or plasma carbon dioxide, total measurement (moles/volume) | + + + + + +------+ + + | Serum or | 2022-01-03 | [facility] | 26 | (missing) | (missing) | | plasma | 15:10 | [facility] | | | | | carbon | | [facility] | | | | | dioxide, | | | | | | | total | | | | | | | measurement | | | | | | | (moles/volum | | | | | | | e) | | | | | | + + + +------+ + + | Serum or | 2022-01-24 | [facility] | 25 | (missing) | (missing) | | plasma | 15:21 | [facility] | | | | | carbon | | [facility] | | | | | dioxide, | | | | | | | total | | | | | | | measurement | | | | | | | (moles/volum | | | | | | | e) | | | | | | + + + +------+ + + | Serum or | 2022-02-28 | [facility] | 22 | (missing) | (missing) | | plasma | 16:56 | [facility] | | | | | carbon | | [facility] | | | | | dioxide, | | | | | | | total | | | | | | | measurement | | | | | | | (moles/volum | | | | | | | e) | | | | | | + + + +------+ + + | Serum or | 2022-04-13 | [facility] | 24 | (missing) | (missing) | | plasma | 13:20 | [facility] | | | | | carbon | | [facility] | | | | | dioxide, | | | | | | | total | | | | | | | measurement | | | | | | | (moles/volum | | | | | | | e) | | | | | | + + + +------+ + + | Serum or | 2022-04-19 | [facility] | 26 | (missing) | (missing) | | plasma | 12:01 | [facility] | | | | | carbon | | [facility] | | | | | dioxide, | | | | | | | total | | | | | | | measurement | | | | | | | (moles/volum | | | | | | | e) | | | | | | + + + +------+ + + + + | Serum or plasma carbon dioxide, total measurement (moles/volume) | + + + + + +------+ + + | Serum or | 2022-03-26 | [facility] | 25 | (missing) | (missing) | | plasma | 21:54 | [facility] | | | | | carbon | | [facility] | | | | | dioxide, | | | | | | | total | | | | | | | measurement | | | | | | | (moles/volum | | | | | | | e) | | | | | | + + + +------+ + + + + | Serum or plasma carbon dioxide, total measurement (moles/volume) | + + + + + +------+ + + | Serum or | 2022-04-04 | [facility] | 25 | (missing) | (missing) | | plasma | 16:35 | [facility] | | | | | carbon | | [facility] | | | | | dioxide, | | | | | | | total | | | | | | | measurement | | | | | | | (moles/volum | | | | | | | e) | | | | | | + + + +------+ + + | Serum or | 2022-04-06 | [facility] | 25 | (missing) | (missing) | | plasma | 15:17 | [facility] | | | | | carbon | | [facility] | | | | | dioxide, | | | | | | | total | | | | | | | measurement | | | | | | | (moles/volum | | | | | | | e) | | | | | | + + + +------+ + + + + | Serum or plasma carbon dioxide, total measurement (moles/volume) | + + + + + +------+ + + | Serum or | 2022-01-22 | [facility] | 26 | (missing) | (missing) | | plasma | 17:25 | [facility] | | | | | carbon | | [facility] | | | | | dioxide, | | | | | | | total | | | | | | | measurement | | | | | | | (moles/volum | | | | | | | e) | | | | | | + + + +------+ + + + + | Urobilinogen [Mass/volume] in Urine by Test strip | + + + + + + + + + | | 2022-02-01 | [facility] | NORMAL | (missing) | (missing) | | Urobilinogen | 16:09 | [facility] | | | | | [Mass/volume | | | | | | | ] in Urine | | | | | | | by Test | | | | | | | strip | | | | | | + + + + + + + + + | Urobilinogen [Mass/volume] in Urine by Test strip | + + + + + + + + + | | 2022-01-22 | [facility] | NORMAL | (missing) | (missing) | | Urobilinogen | 19:30 | [facility] | | | | | [Mass/volume | | | | | | | ] in Urine | | | | | | | by Test | | | | | | | strip | | | | | | + + + + + + + + + | Serum or plasma chloride measurement (moles/volume) | + + + + + +-------+ + + | Serum or | 2022-03-17 | [facility] | 103 | (missing) | (missing) | | plasma | 15:04 | [facility] | | | | | chloride | | [facility] | | | | | measurement | | | | | | | (moles/volum | | | | | | | e) | | | | | | + + + +-------+ + + | Serum or | 2022-03-25 | [facility] | 101 | (missing) | (missing) | | plasma | 16:07 | [facility] | | | | | chloride | | [facility] | | | | | measurement | | | | | | | (moles/volum | | | | | | | e) | | | | | | + + + +-------+ + + + + | Serum or plasma chloride measurement (moles/volume) | + + + + + +-------+ + + | Serum or | 2022-01-03 | [facility] | 101 | (missing) | (missing) | | plasma | 15:10 | [facility] | | | | | chloride | | [facility] | | | | | measurement | | | | | | | (moles/volum | | | | | | | e) | | | | | | + + + +-------+ + + | Serum or | 2022-01-24 | [facility] | 103 | (missing) | (missing) | | plasma | 15:21 | [facility] | | | | | chloride | | [facility] | | | | | measurement | | | | | | | (moles/volum | | | | | | | e) | | | | | | + + + +-------+ + + | Serum or | 2022-02-28 | [facility] | 105 | (missing) | (missing) | | plasma | 16:56 | [facility] | | | | | chloride | | [facility] | | | | | measurement | | | | | | | (moles/volum | | | | | | | e) | | | | | | + + + +-------+ + + | Serum or | 2022-04-13 | [facility] | 102 | (missing) | (missing) | | plasma | 13:20 | [facility] | | | | | chloride | | [facility] | | | | | measurement | | | | | | | (moles/volum | | | | | | | e) | | | | | | + + + +-------+ + + | Serum or | 2022-04-19 | [facility] | 102 | (missing) | (missing) | | plasma | 12:01 | [facility] | | | | | chloride | | [facility] | | | | | measurement | | | | | | | (moles/volum | | | | | | | e) | | | | | | + + + +-------+ + + + + | Serum or plasma chloride measurement (moles/volume) | + + + + + +-------+ + + | Serum or | 2022-03-26 | [facility] | 102 | (missing) | (missing) | | plasma | 21:54 | [facility] | | | | | chloride | | [facility] | | | | | measurement | | | | | | | (moles/volum | | | | | | | e) | | | | | | + + + +-------+ + + + + | Serum or plasma chloride measurement (moles/volume) | + + + + + +-------+ + + | Serum or | 2022-04-04 | [facility] | 101 | (missing) | (missing) | | plasma | 16:35 | [facility] | | | | chloride | | [facility] | | | | | measurement | | | | | | | (moles/volum | | | | | | | e) | | | | | | + + + +-------+ + + | Serum or | 2022-04-06 | [facility] | 101 | (missing) | (missing) | | plasma | 15:17 | [facility] | | | | | chloride | | [facility] | | | | | measurement | | | | | | | (moles/volum | | | | | | | e) | | | | | | + + + +-------+ + + + + | Serum or plasma chloride measurement (moles/volume) | + + + + + +-------+ + + | Serum or | 2022-01-22 | [facility] | 103 | (missing) | (missing) | | plasma | 17:25 | [facility] | | | | chloride | | [facility] | | | | | measurement | | | | | | | (moles/volum | | | | | | | e) | | | | | | + + + +-------+ + + + + | Automated erythrocyte distribution width | + + + + + +--------+ + + | Automated | 2022-01-22 | [facility] | 16.7 | (missing) | (missing) | | erythrocyte | 17:25 | [facility] | | | | distribution | | [facility] | | | | | width | | | | | | + + + +--------+ + + + + | Automated erythrocyte distribution width | + + + + + +--------+ + + | Automated | 2022-02-28 | [facility] | 16.5 | (missing) | (missing) | | erythrocyte | 00:35 | [facility] | | | | distribution | | [facility] | | | | | width | | | | | | + + + +--------+ + + | Automated | 2022-03-17 | [facility] | 16.4 | (missing) | (missing) | | erythrocyte | 15:04 | [facility] | | | | | distribution | | [facility] | | | | | width | | | | | | + + + +--------+ + + | Automated | 2022-03-25 | [facility] | 16.5 | (missing) | (missing) | | erythrocyte | 16:07 | [facility] | | | | distribution | | [facility] | | | | | width | | | | | | + + + +--------+ + + | Automated | 2022-03-26 | [facility] | 16.3 | (missing) | (missing) | | erythrocyte | 21:54 | [facility] | | | | | distribution | | [facility] | | | | | width | | | | | | + + + +--------+ + + | Automated | 2022-04-06 | [facility] | 15.7 | (missing) | (missing) | | erythrocyte | 15:17 | [facility] | | | | distribution | | [facility] | | | | | width | | | | | | + + + +--------+ + + + + | Automated erythrocyte distribution width | + + + + + +--------+ + + | Automated | 2022-01-03 | [facility] | 16.4 | (missing) | (missing) | | erythrocyte | 15:10 | [facility] | | | | distribution | | [facility] | | | | | width | | | | | | + + + +--------+ + + | Automated | 2022-01-24 | [facility] | 16.5 | (missing) | (missing) | | erythrocyte | 15:21 | [facility] | | | | | distribution | | [facility] | | | | | width | | | | | | + + + +--------+ + + | Automated | 2022-02-28 | [facility] | 16.1 | (missing) | (missing) | | erythrocyte | 16:56 | [facility] | | | | | distribution | | [facility] | | | | | width | | | | | | + + + +--------+ + + | Automated | 2022-04-04 | [facility] | 16.1 | (missing) | (missing) | | erythrocyte | 16:35 | [facility] | | | | | distribution | | [facility] | | | | | width | | | | | | + + + +--------+ + + | Automated | 2022-04-13 | [facility] | 15.3 | (missing) | (missing) | | erythrocyte | 13:20 | [facility] | | | | | distribution | | [facility] | | | | | width | | | | | | + + + +--------+ + + | Automated | 2022-04-19 | [facility] | 15.1 | (missing) | (missing) | | erythrocyte | 12:01 | [facility] | | | | | distribution | | [facility] | | | | | width | | | | | | + + + +--------+ + + + + | Serum or plasma choriogonadotropin ( test) detection | + + + + + + + + + | Serum or | 2022-03-25 | [facility] | NEGATIVE | (missing) | (missing) | | plasma | 16:07 | [facility] | | | | | choriogonado | | Hospital | | | | | tropin | | | | | | | ( | | | | | | | test) | | | | | | | detection | | | | | | + + + + + + + + + | Serum or plasma creatinine measurement (mass/volume) | + + + + + +--------+ + + | Serum or | 2022-03-17 | [facility] | 0.76 | (missing) | (missing) | | plasma | 15:04 | [facility] | | | | creatinine | | [facility] | | | | | measurement | | | | | | | (mass/volume | | | | | | | ) | | | | | | + + + +--------+ + + | Serum or | 2022-03-25 | [facility] | 0.90 | (missing) | (missing) | | plasma | 16:07 | [facility] | | | | | creatinine | | [facility] | | | | | measurement | | | | | | | (mass/volume | | | | | | | ) | | | | | | + + + +--------+ + + + + | Serum or plasma creatinine measurement (mass/volume) | + + + + + +--------+ + + | Serum or | 2022-01-03 | [facility] | 0.71 | (missing) | (missing) | | plasma | 15:10 | [facility] | | | | creatinine | | [facility] | | | | | measurement | | | | | | | (mass/volume | | | | | | | ) | | | | | | + + + +--------+ + + | Serum or | 2022-01-24 | [facility] | 0.81 | (missing) | (missing) | | plasma | 15:21 | [facility] | | | | | creatinine | | [facility] | | | | | measurement | | | | | | | (mass/volume | | | | | | | ) | | | | | | + + + +--------+ + + | Serum or | 2022-02-28 | [facility] | 0.85 | (missing) | (missing) | | plasma | 16:56 | [facility] | | | | | creatinine | | [facility] | | | | | measurement | | | | | | | (mass/volume | | | | | | | ) | | | | | | + + + +--------+ + + | Serum or | 2022-04-13 | [facility] | 0.92 | (missing) | (missing) | | plasma | 13:20 | [facility] | | | | | creatinine | | [facility] | | | | | measurement | | | | | | | (mass/volume | | | | | | | ) | | | | | | + + + +--------+ + + | Serum or | 2022-04-19 | [facility] | 0.84 | (missing) | (missing) | | plasma | 12:01 | [facility] | | | | | creatinine | | [facility] | | | | | measurement | | | | | | | (mass/volume | | | | | | | ) | | | | | | + + + +--------+ + + + + | Serum or plasma creatinine measurement (mass/volume) | + + + + + +--------+ + + | Serum or | 2022-03-26 | [facility] | 0.90 | (missing) | (missing) | | plasma | 21:54 | [facility] | | | | creatinine | | [facility] | | | | | measurement | | | | | | | (mass/volume | | | | | | | ) | | | | | | + + + +--------+ + + + + | Serum or plasma creatinine measurement (mass/volume) | + + + + + +--------+ + + | Serum or | 2022-04-04 | [facility] | 0.86 | (missing) | (missing) | | plasma | 16:35 | [facility] | | | | creatinine | | [facility] | | | | | measurement | | | | | | | (mass/volume | | | | | | | ) | | | | | | + + + +--------+ + + | Serum or | 2022-04-06 | [facility] | 0.89 | (missing) | (missing) | | plasma | 15:17 | [facility] | | | | | creatinine | | [facility] | | | | | measurement | | | | | | | (mass/volume | | | | | | | ) | | | | | | + + + +--------+ + + + + | Serum or plasma creatinine measurement (mass/volume) | + + + + + +--------+ + + | Serum or | 2022-01-22 | [facility] | 0.77 | (missing) | (missing) | | plasma | 17:25 | [facility] | | | | creatinine | | [facility] | | | | | measurement | | | | | | | (mass/volume | | | | | | | ) | | | | | | + + + +--------+ + + + + | Serum globulin measurement (mass/volume) | + + + + + +-------+ + + | Serum | 2022-03-17 | [facility] | 3.9 | (missing) | (missing) | | globulin | 15:04 | [facility] | | | | [facility] | | [facility] | | | | | (mass/volume | | | | | | | ) | | | | | | + + + +-------+ + + + + | Serum globulin measurement (mass/volume) | + + + + + +-------+ + + | Serum | 2022-03-25 | [facility] | 4.3 | (missing) | (missing) | | globulin | 16:07 | [facility] | | | | measurement | | [facility] | | | | | (mass/volume | | | | | | | ) | | | | | | + + + +-------+ + + + + | Serum globulin measurement (mass/volume) | + + + + + +-------+ + + | Serum | 2022-01-03 | [facility] | 5.5 | (missing) | (missing) | | globulin | 15:10 | [facility] | | | | [facility] | | [facility] | | | | | (mass/volume | | | | | | | ) | | | | | | + + + +-------+ + + | Serum | 2022-01-24 | [facility] | 4.8 | (missing) | (missing) | | globulin | 15:21 | [facility] | | | | | measurement | | [facility] | | | | | (mass/volume | | | | | | | ) | | | | | | + + + +-------+ + + | Serum | 2022-02-28 | [facility] | 3.9 | (missing) | (missing) | | globulin | 16:56 | [facility] | | | | | measurement | | [facility] | | | | | (mass/volume | | | | | | | ) | | | | | | + + + +-------+ + + | Serum | 2022-04-13 | [facility] | 4.0 | (missing) | (missing) | | globulin | 13:20 | [facility] | | | | | measurement | | [facility] | | | | | (mass/volume | | | | | | | ) | | | | | | + + + +-------+ + + + + | Serum globulin measurement (mass/volume) | + + + + + +-------+ + + | Serum | 2022-03-26 | [facility] | 4.4 | (missing) | (missing) | | globulin | 21:54 | [facility] | | | | | measurement | | [facility] | | | | | (mass/volume | | | | | | | ) | | | | | | + + + +-------+ + + + + | Serum globulin measurement (mass/volume) | + + + + + +-------+ + + | Serum | 2022-04-04 | [facility] | 4.3 | (missing) | (missing) | | globulin | 16:35 | [facility] | | | | measurement | | [facility] | | | | | (mass/volume | | | | | | | ) | | | | | | + + + +-------+ + + | Serum | 2022-04-06 | [facility] | 4.1 | (missing) | (missing) | | globulin | 15:17 | [facility] | | | | | measurement | | [facility] | | | | | (mass/volume | | | | | | | ) | | | | | | + + + +-------+ + + + + | Serum globulin measurement (mass/volume) | + + + + + +-------+ + + | Serum | 2022-01-22 | [facility] | 4.4 | (missing) | (missing) | | globulin | 17:25 | [facility] | | | | measurement | | [facility] | | | | | (mass/volume | | | | | | | ) | | | | | | + + + +-------+ + + + + | Serum or plasma glucose measurement (mass/volume) | + + + + + +-------+ + + | Serum or | 2022-03-17 | [facility] | 251 | (missing) | (missing) | | plasma | 15:04 | [facility] | | | | | glucose | | [facility] | | | | | measurement | | | | | | | (mass/volume | | | | | | | ) | | | | | | + + + +-------+ + + | Serum or | 2022-03-25 | [facility] | 219 | (missing) | (missing) | | plasma | 16:07 | [facility] | | | | | glucose | | [facility] | | | | | measurement | | | | | | | (mass/volume | | | | | | | ) | | | | | | + + + +-------+ + + + + | Serum or plasma glucose measurement (mass/volume) | + + + + + +-------+ + + | Serum or | 2022-01-03 | [facility] | 184 | (missing) | (missing) | | plasma | 15:10 | [facility] | | | | | glucose | | [facility] | | | | | measurement | | | | | | | (mass/volume | | | | | | | ) | | | | | | + + + +-------+ + + | Serum or | 2022-01-24 | [facility] | 274 | (missing) | (missing) | | plasma | 15:21 | [facility] | | | | | glucose | | [facility] | | | | | measurement | | | | | | | (mass/volume | | | | | | | ) | | | | | | + + + +-------+ + + | Serum or | 2022-02-28 | [facility] | 148 | (missing) | (missing) | | plasma | 16:56 | [facility] | | | | | glucose | | [facility] | | | | | measurement | | | | | | | (mass/volume | | | | | | | ) | | | | | | + + + +-------+ + + | Serum or | 2022-04-13 | [facility] | 293 | (missing) | (missing) | | plasma | 13:20 | [facility] | | | | | glucose | | [facility] | | | | | measurement | | | | | | | (mass/volume | | | | | | | ) | | | | | | + + + +-------+ + + | Serum or | 2022-04-19 | [facility] | 234 | (missing) | (missing) | | plasma | 12:01 | [facility] | | | | | glucose | | [facility] | | | | | measurement | | | | | | | (mass/volume | | | | | | | ) | | | | | | + + + +-------+ + + + + | Serum or plasma glucose measurement (mass/volume) | + + + + + +-------+ + + | Serum or | 2022-03-26 | [facility] | 176 | (missing) | (missing) | | plasma | 21:54 | [facility] | | | | | glucose | | [facility] | | | | | measurement | | | | | | | (mass/volume | | | | | | | ) | | | | | | + + + +-------+ + + + + | Serum or plasma glucose measurement (mass/volume) | + + + + + +-------+ + + | Serum or | 2022-04-04 | [facility] | 202 | (missing) | (missing) | | plasma | 16:35 | [facility] | | | | | glucose | | [facility] | | | | | measurement | | | | | | | (mass/volume | | | | | | | ) | | | | | | + + + +-------+ + + | Serum or | 2022-04-06 | [facility] | 257 | (missing) | (missing) | | plasma | 15:17 | [facility] | | | | | glucose | | [facility] | | | | | measurement | | | | | | | (mass/volume | | | | | | | ) | | | | | | + + + +-------+ + + + + | Serum or plasma glucose measurement (mass/volume) | + + + + + +-------+ + + | Serum or | 2022-01-22 | [facility] | 165 | (missing) | (missing) | | plasma | 17:25 | [facility] | | | | | glucose | | [facility] | | | | | measurement | | | | | | | (mass/volume | | | | | | | ) | | | | | | + + + +-------+ + + + + | Urine ketones detection by test strip | + + + + + + + + + | Urine | 2022-02-01 | [facility] | NEGATIVE | (missing) | (missing) | | ketones | 16:09 | [facility] | | | | | detection by | | Hospital | | | | | test strip | | | | | | + + + + + + + + + | Urine ketones detection by test strip | + + + + + + + + + | Urine | 2022-01-22 | [facility] | NEGATIVE | (missing) | (missing) | | ketones | 19:30 | [facility] | | | | | detection by | | Hospital | | | | | test strip | | | | | | + + + + + + + + + | Glucose [Presence] in Urine by Test strip | + + + + + + + + + | Glucose | 2022-02-01 | [facility] | NEGATIVE | (missing) | (missing) | | [Presence] | 16:09 | [facility] | | | | | in Urine by | | Hospital | | | | | Test strip | | | | | | + + + + + + + + + | Glucose [Presence] in Urine by Test strip | + + + + + + + + + | Glucose | 2022-01-22 | [facility] | NEGATIVE | (missing) | (missing) | | [Presence] | 19:30 | [facility] | | | | | in Urine by | | Hospital | | | | | Test strip | | | | | | + + + + + + + + + | Serum or plasma potassium measurement (moles/volume) | + + + + + +-------+ + + | Serum or | 2022-03-17 | [facility] | 3.7 | (missing) | (missing) | | plasma | 15:04 | [facility] | | | | | potassium | | Hospital | | | | | measurement | | | | | | | (moles/volum | | | | | | | e) | | | | | | + + + +-------+ + + | Serum or | 2022-03-25 | [facility] | 4.2 | (missing) | (missing) | | plasma | 16:07 | [facility] | | | | | potassium | | Hospital | | | | | measurement | | | | | | | (moles/volum | | | | | | | e) | | | | | | + + + +-------+ + + + + | Serum or plasma potassium measurement (moles/volume) | + + + + + +-------+ + + | Serum or | 2022-01-03 | [facility] | 5.0 | (missing) | (missing) | | plasma | 15:10 | [facility] | | | | | potassium | | Hospital | | | | | measurement | | | | | | | (moles/volum | | | | | | | e) | | | | | | + + + +-------+ + + | Serum or | 2022-01-24 | [facility] | 4.5 | (missing) | (missing) | | plasma | 15:21 | [facility] | | | | | potassium | | Hospital | | | | | measurement | | | | | | | (moles/volum | | | | | | | e) | | | | | | + + + +-------+ + + | Serum or | 2022-02-28 | [facility] | 4.1 | (missing) | (missing) | | plasma | 16:56 | [facility] | | | | potassium | | [facility] | | | | | measurement | | | | | | | (moles/volum | | | | | | | e) | | | | | | + + + +-------+ + + | Serum or | 2022-04-13 | [facility] | 4.8 | (missing) | (missing) | | plasma | 13:20 | [facility] | | | | | potassium | | [facility] | | | | | measurement | | | | | | | (moles/volum | | | | | | | e) | | | | | | + + + +-------+ + + | Serum or | 2022-04-19 | [facility] | 4.5 | (missing) | (missing) | | plasma | 12:01 | [facility] | | | | | potassium | | [facility] | | | | | measurement | | | | | | | (moles/volum | | | | | | | e) | | | | | | + + + +-------+ + + + + | Serum or plasma potassium measurement (moles/volume) | + + + + + +-------+ + + | Serum or | 2022-03-26 | [facility] | 4.0 | (missing) | (missing) | | plasma | 21:54 | [facility] | | | | potassium | | [facility] | | | | | measurement | | | | | | | (moles/volum | | | | | | | e) | | | | | | + + + +-------+ + + + + | Serum or plasma potassium measurement (moles/volume) | + + + + + +-------+ + + | Serum or | 2022-04-04 | [facility] | 4.8 | (missing) | (missing) | | plasma | 16:35 | [facility] | | | | potassium | | [facility] | | | | | measurement | | | | | | | (moles/volum | | | | | | | e) | | | | | | + + + +-------+ + + | Serum or | 2022-04-06 | [facility] | 4.7 | (missing) | (missing) | | plasma | 15:17 | [facility] | | | | | potassium | | [facility] | | | | | measurement | | | | | | | (moles/volum | | | | | | | e) | | | | | | + + + +-------+ + + + + | Serum or plasma potassium measurement (moles/volume) | + + + + + +-------+ + + | Serum or | 2022-01-22 | [facility] | 3.5 | (missing) | (missing) | | plasma | 17:25 | [facility] | | | | potassium | | [facility] | | | | | measurement | | | | | | | (moles/volum | | | | | | | e) | | | | | | + + + +-------+ + + + + | Serum or plasma protein measurement (mass/volume) | + + + + + +-------+ + + | Serum or | 2022-03-17 | [facility] | 6.5 | (missing) | (missing) | | plasma | 15:04 | [facility] | | | | | protein | | [facility] | | | | | measurement | | | | | | | (mass/volume | | | | | | | ) | | | | | | + + + +-------+ + + + + | Serum or plasma protein measurement (mass/volume) | + + + + + +-------+ + + | Serum or | 2022-03-25 | [facility] | 7.4 | (missing) | (missing) | | plasma | 16:07 | [facility] | | | | | protein | | [facility] | | | | | measurement | | | | | | | (mass/volume | | | | | | | ) | | | | | | + + + +-------+ + + + + | Serum or plasma protein measurement (mass/volume) | + + + + + +-------+ + + | Serum or | 2022-01-03 | [facility] | 8.2 | (missing) | (missing) | | plasma | 15:10 | [facility] | | | | protein | | [facility] | | | | | measurement | | | | | | | (mass/volume | | | | | | | ) | | | | | | + + + +-------+ + + | Serum or | 2022-01-24 | [facility] | 7.6 | (missing) | (missing) | | plasma | 15:21 | [facility] | | | | | protein | | [facility] | | | | | measurement | | | | | | | (mass/volume | | | | | | | ) | | | | | | + + + +-------+ + + | Serum or | 2022-02-28 | [facility] | 6.7 | (missing) | (missing) | | plasma | 16:56 | [facility] | | | | | protein | | [facility] | | | | | measurement | | | | | | | (mass/volume | | | | | | | ) | | | | | | + + + +-------+ + + | Serum or | 2022-04-13 | [facility] | 6.7 | (missing) | (missing) | | plasma | 13:20 | [facility] | | | | | protein | | [facility] | | | | | measurement | | | | | | | (mass/volume | | | | | | | ) | | | | | | + + + +-------+ + + + + | Serum or plasma protein measurement (mass/volume) | + + + + + +-------+ + + | Serum or | 2022-03-26 | [facility] | 7.1 | (missing) | (missing) | | plasma | 21:54 | [facility] | | | | | protein | | [facility] | | | | | measurement | | | | | | | (mass/volume | | | | | | | ) | | | | | | + + + +-------+ + + + + | Serum or plasma protein measurement (mass/volume) | + + + + + +-------+ + + | Serum or | 2022-04-04 | [facility] | 7.4 | (missing) | (missing) | | plasma | 16:35 | [facility] | | | | protein | | [facility] | | | | | measurement | | | | | | | (mass/volume | | | | | | | ) | | | | | | + + + +-------+ + + | Serum or | 2022-04-06 | [facility] | 7.0 | (missing) | (missing) | | plasma | 15:17 | [facility] | | | | | protein | | [facility] | | | | | measurement | | | | | | | (mass/volume | | | | | | | ) | | | | | | + + + +-------+ + + + + | Serum or plasma protein measurement (mass/volume) | + + + + + +-------+ + + | Serum or | 2022-01-22 | [facility] | 7.3 | (missing) | (missing) | | plasma | 17:25 | [facility] | | | | protein | | [facility] | | | | | measurement | | | | | | | (mass/volume | | | | | | | ) | | | | | | + + + +-------+ + + + + | Serum or plasma sodium measurement (moles/volume) | + + + + + +-------+ + + | Serum or | 2022-03-17 | [facility] | 135 | (missing) | (missing) | | plasma | 15:04 | [facility] | | | | | sodium | | [facility] | | | | | measurement | | | | | | | (moles/volum | | | | | | | e) | | | | | | + + + +-------+ + + | Serum or | 2022-03-25 | [facility] | 136 | (missing) | (missing) | | plasma | 16:07 | [facility] | | | | | sodium | | [facility] | | | | | measurement | | | | | | | (moles/volum | | | | | | | e) | | | | | | + + + +-------+ + + + + | Serum or plasma sodium measurement (moles/volume) | + + + + + +-------+ + + | Serum or | 2022-01-03 | [facility] | 136 | (missing) | (missing) | | plasma | 15:10 | [facility] | | | | sodium | | [facility] | | | | | measurement | | | | | | | (moles/volum | | | | | | | e) | | | | | | + + + +-------+ + + | Serum or | 2022-01-24 | [facility] | 137 | (missing) | (missing) | | plasma | 15:21 | [facility] | | | | | sodium | | [facility] | | | | | measurement | | | | | | | (moles/volum | | | | | | | e) | | | | | | + + + +-------+ + + | Serum or | 2022-02-28 | [facility] | 138 | (missing) | (missing) | | plasma | 16:56 | [facility] | | | | | sodium | | [facility] | | | | | measurement | | | | | | | (moles/volum | | | | | | | e) | | | | | | + + + +-------+ + + | Serum or | 2022-04-13 | [facility] | 135 | (missing) | (missing) | | plasma | 13:20 | [facility] | | | | | sodium | | [facility] | | | | | measurement | | | | | | | (moles/volum | | | | | | | e) | | | | | | + + + +-------+ + + | Serum or | 2022-04-19 | [facility] | 136 | (missing) | (missing) | | plasma | 12:01 | [facility] | | | | | sodium | | [facility] | | | | | measurement | | | | | | | (moles/volum | | | | | | | e) | | | | | | + + + +-------+ + + + + | Serum or plasma sodium measurement (moles/volume) | + + + + + +-------+ + + | Serum or | 2022-03-26 | [facility] | 136 | (missing) | (missing) | | plasma | 21:54 | [facility] | | | | | sodium | | [facility] | | | | | measurement | | | | | | | (moles/volum | | | | | | | e) | | | | | | + + + +-------+ + + + + | Serum or plasma sodium measurement (moles/volume) | + + + + + +-------+ + + | Serum or | 2022-04-04 | [facility] | 136 | (missing) | (missing) | | plasma | 16:35 | [facility] | | | | sodium | | [facility] | | | | | measurement | | | | | | | (moles/volum | | | | | | | e) | | | | | | + + + +-------+ + + | Serum or | 2022-04-06 | [facility] | 135 | (missing) | (missing) | | plasma | 15:17 | [facility] | | | | | sodium | | [facility] | | | | | measurement | | | | | | | (moles/volum | | | | | | | e) | | | | | | + + + +-------+ + + + + | Serum or plasma sodium measurement (moles/volume) | + + + + + +-------+ + + | Serum or | 2022-01-22 | [facility] | 137 | (missing) | (missing) | | plasma | 17:25 | [facility] | | | | sodium | | [facility] | | | | | measurement | | | | | | | (moles/volum | | | | | | | e) | | | | | | + + + +-------+ + + + + | Serum or plasma urea nitrogen measurement (mass/volume) | + + + + + +------+ + + | Serum or | 2022-03-17 | [facility] | 23 | (missing) | (missing) | | plasma urea | 15:04 | [facility] | | | | | nitrogen | | [facility] | | | | | measurement | | | | | | | (mass/volume | | | | | | | ) | | | | | | + + + +------+ + + | Serum or | 2022-03-25 | [facility] | 27 | (missing) | (missing) | | plasma urea | 16:07 | [facility] | | | | | nitrogen | | [facility] | | | | | measurement | | | | | | | (mass/volume | | | | | | | ) | | | | | | + + + +------+ + + + + | Serum or plasma urea nitrogen measurement (mass/volume) | + + + + + +------+ + + | Serum or | 2022-01-03 | [facility] | 18 | (missing) | (missing) | | plasma urea | 15:10 | [facility] | | | | nitrogen | | [facility] | | | | | measurement | | | | | | | (mass/volume | | | | | | | ) | | | | | | + + + +------+ + + | Serum or | 2022-01-24 | [facility] | 17 | (missing) | (missing) | | plasma urea | 15:21 | [facility] | | | | | nitrogen | | [facility] | | | | | measurement | | | | | | | (mass/volume | | | | | | | ) | | | | | | + + + +------+ + + | Serum or | 2022-02-28 | [facility] | 23 | (missing) | (missing) | | plasma urea | 16:56 | [facility] | | | | | nitrogen | | [facility] | | | | | measurement | | | | | | | (mass/volume | | | | | | | ) | | | | | | + + + +------+ + + | Serum or | 2022-04-13 | [facility] | 25 | (missing) | (missing) | | plasma urea | 13:20 | [facility] | | | | | nitrogen | | [facility] | | | | | measurement | | | | | | | (mass/volume | | | | | | | ) | | | | | | + + + +------+ + + | Serum or | 2022-04-19 | [facility] | 25 | (missing) | (missing) | | plasma urea | 12:01 | [facility] | | | | | nitrogen | | [facility] | | | | | measurement | | | | | | | (mass/volume | | | | | | | ) | | | | | | + + + +------+ + + + + | Serum or plasma urea nitrogen measurement (mass/volume) | + + + + + +------+ + + | Serum or | 2022-03-26 | [facility] | 29 | (missing) | (missing) | | plasma urea | 21:54 | [facility] | | | | | nitrogen | | [facility] | | | | | measurement | | | | | | | (mass/volume | | | | | | | ) | | | | | | + + + +------+ + + + + | Serum or plasma urea nitrogen measurement (mass/volume) | + + + + + +------+ + + | Serum or | 2022-04-04 | [facility] | 25 | (missing) | (missing) | | plasma urea | 16:35 | [facility] | | | | | nitrogen | | [facility] | | | | | measurement | | | | | | | (mass/volume | | | | | | | ) | | | | | | + + + +------+ + + | Serum or | 2022-04-06 | [facility] | 28 | (missing) | (missing) | | plasma urea | 15:17 | [facility] | | | | | nitrogen | | [facility] | | | | | measurement | | | | | | | (mass/volume | | | | | | | ) | | | | | | + + + +------+ + + + + | Serum or plasma urea nitrogen measurement (mass/volume) | + + + + + +------+ + + | Serum or | 2022-01-22 | [facility] | 18 | (missing) | (missing) | | plasma urea | 17:25 | [facility] | | | | | nitrogen | | [facility] | | | | | measurement | | | | | | | (mass/volume | | | | | | | ) | | | | | | + + + +------+ + + + + | Serum or plasma urea nitrogen/creatinine mass ratio | + + + + + +---------+ + + | Serum or | 2022-03-17 | [facility] | 30.26 | (missing) | (missing) | | plasma urea | 15:04 | [facility] | | | | | nitrogen/cre | | [facility] | | | | | atinine mass | | | | | | | ratio | | | | | | + + + +---------+ + + | Serum or | 2022-03-25 | [facility] | 30.00 | (missing) | (missing) | | plasma urea | 16:07 | [facility] | | | | | nitrogen/cre | | [facility] | | | | | atinine mass | | | | | | | ratio | | | | | | + + + +---------+ + + + + | Serum or plasma urea nitrogen/creatinine mass ratio | + + + + + +---------+ + + | Serum or | 2022-01-03 | [facility] | 25.35 | (missing) | (missing) | | plasma urea | 15:10 | [facility] | | | | | nitrogen/cre | | [facility] | | | | | atinine mass | | | | | | | ratio | | | | | | + + + +---------+ + + | Serum or | 2022-01-24 | [facility] | 20.98 | (missing) | (missing) | | plasma urea | 15:21 | [facility] | | | | | nitrogen/cre | | [facility] | | | | | atinine mass | | | | | | | ratio | | | | | | + + + +---------+ + + | Serum or | 2022-02-28 | [facility] | 27.05 | (missing) | (missing) | | plasma urea | 16:56 | [facility] | | | | | nitrogen/cre | | [facility] | | | | | atinine mass | | | | | | | ratio | | | | | | + + + +---------+ + + | Serum or | 2022-04-13 | [facility] | 27.17 | (missing) | (missing) | | plasma urea | 13:20 | [facility] | | | | | nitrogen/cre | | [facility] | | | | | atinine mass | | | | | | | ratio | | | | | | + + + +---------+ + + | Serum or | 2022-04-19 | [facility] | 29.76 | (missing) | (missing) | | plasma urea | 12:01 | [facility] | | | | | nitrogen/cre | | [facility] | | | | | atinine mass | | | | | | | ratio | | | | | | + + + +---------+ + + + + | Serum or plasma urea nitrogen/creatinine mass ratio | + + + + + +---------+ + + | Serum or | 2022-03-26 | [facility] | 32.22 | (missing) | (missing) | | plasma urea | 21:54 | [facility] | | | | | nitrogen/cre | | [facility] | | | | | atinine mass | | | | | | | ratio | | | | | | + + + +---------+ + + + + | Serum or plasma urea nitrogen/creatinine mass ratio | + + + + + +---------+ + + | Serum or | 2022-04-04 | [facility] | 29.06 | (missing) | (missing) | | plasma urea | 16:35 | [facility] | | | | | nitrogen/cre | | [facility] | | | | | atinine mass | | | | | | | ratio | | | | | | + + + +---------+ + + | Serum or | 2022-04-06 | [facility] | 31.46 | (missing) | (missing) | | plasma urea | 15:17 | [facility] | | | | | nitrogen/cre | | [facility] | | | | | atinine mass | | | | | | | ratio | | | | | | + + + +---------+ + + + + | Serum or plasma urea nitrogen/creatinine mass ratio | + + + + + +---------+ + + | Serum or | 2022-01-22 | [facility] | 23.37 | (missing) | (missing) | | plasma urea | 17:25 | [facility] | | | | | nitrogen/cre | | [facility] | | | | | atinine mass | | | | | | | ratio | | | | | | + + + +---------+ + + + + | Fibrin D-dimer FEU [Mass/volume] in Platelet poor plasma by Immunoassay | + + + + + +--------+ + + | Fibrin | 2022-04-06 | [facility] | 0.56 | (missing) | (missing) | | D-dimer FEU | 15:17 | [facility] | | | | | [Mass/volume | | Hospital | | | | | ] in | | | | | | | Platelet | | | | | | | poor plasma | | | | | | | by | | | | | | | Immunoassay | | | | | | + + + +--------+ + + + + | Color of Urine by Auto | + + + + + + + + + | Color of | 2022-01-22 | [facility] | YELLOW | (missing) | (missing) | | Urine by | 19:30 | [facility] | | | | | Auto | | [facility] | | | | + + + + + + + + + | Automated urine sediment bacteria count by microscopy (number/high power field) | + + + + + +------+ + + | Automated | 2022-02-01 | [facility] | 2+ | (missing) | (missing) | | urine | 16:09 | [facility] | | | | | sediment | | [facility] | | | | | bacteria | | | | | | | count by | | | | | | | microscopy | | | | | | | (number/high | | | | | | | power | | | | | | | field) | | | | | | + + + +------+ + + + + | Automated urine sediment bacteria count by microscopy (number/high power field) | + + + + + +------+ + + | Automated | 2022-01-22 | [facility] | 2+ | (missing) | (missing) | | urine | 19:30 | [facility] | | | | | sediment | | [facility] | | | | | bacteria | | | | | | | count by | | | | | | | microscopy | | | | | | | (number/high | | | | | | | power | | | | | | | field) | | | | | | + + + +------+ + + + + | Urine total bilirubin detection by test strip | + + + + + + + + + | Urine total | 2022-02-01 | [facility] | NEGATIVE | (missing) | (missing) | | bilirubin | 16:09 | [facility] | | | | | detection by | | Hospital | | | | | test strip | | | | | | + + + + + + + + + | Urine total bilirubin detection by test strip | + + + + + + + + + | Urine total | 2022-01-22 | [facility] | NEGATIVE | (missing) | (missing) | | bilirubin | 19:30 | [facility] | | | | | detection by | | Hospital | | | | | test strip | | | | | | + + + + + + + + + | Crystal typing in urine sediment by light microscopy | + + + + + + + + + | Crystal | 2022-02-01 | [facility] | NONE SEEN | (missing) | (missing) | | typing in | 16:09 | [facility] | | | | | urine | | [facility] | | | | | sediment by | | | | | | | light | | | | | | | microscopy | | | | | | + + + + + + + + + | Crystal typing in urine sediment by light microscopy | + + + + + + + + + | Crystal | 2022-01-22 | [facility] | NONE SEEN | (missing) | (missing) | | typing in | 19:30 | [facility] | | | | | urine | | [facility] | | | | | sediment by | | | | | | | light | | | | | | | microscopy | | | | | | + + + + + + + + + | Automated urine sediment epithelial cell count by microscopy (number/high power field) | + + + + + + + + + | Automated | 2022-02-01 | [facility] | SQUAMOUS 2+ | (missing) | (missing) | | urine | 16:09 | [facility] | | | | | sediment | | Hospital | | | | | epithelial | | | | | | | cell count | | | | | | | by | | | | | | | microscopy | | | | | | | (number/high | | | | | | | power | | | | | | | field) | | | | | | + + + + + + + + + | Automated urine sediment epithelial cell count by microscopy (number/high power field) | + + + + + + + + + | Automated | 2022-01-22 | [facility] | SQUAMOUS 3+ | (missing) | (missing) | | urine | 19:30 | [facility] | | | | | sediment | | Hospital | | | | | epithelial | | | | | | | cell count | | | | | | | by | | | | | | | microscopy | | | | | | | (number/high | | | | | | | power | | | | | | | field) | | | | | | + + + + + + + + + | Urine hemoglobin detection by test strip | + + + + + + + + + | Urine | 2022-01-22 | [facility] | MODERATE | (missing) | (missing) | | hemoglobin | 19:30 | [facility] | | | | | detection by | | Hospital | | | | | test strip | | | | | | + + + + + + + + + | Urine hemoglobin detection by test strip | + + + + + + + + + | Urine | 2022-02-01 | [facility] | MODERATE | (missing) | (missing) | | hemoglobin | 16:09 | [facility] | | | | | detection by | | Hospital | | | | | test strip | | | | | | + + + + + + + + + | Urine leukocyte esterase detection by dipstick | + + + + + +---------+ + + | Urine | 2022-02-01 | [facility] | SMALL | (missing) | (missing) | | leukocyte | 16:09 | [facility] | | | | | esterase | | [facility] | | | | | detection by | | | | | | | dipstick | | | | | | + + + +---------+ + + + + | Urine leukocyte esterase detection by dipstick | + + + + + +---------+ + + | Urine | 2022-01-22 | [facility] | TRACE | (missing) | (missing) | | leukocyte | 19:30 | [facility] | | | | | esterase | | [facility] | | | | | detection by | | | | | | | dipstick | | | | | | + + + +---------+ + + + + | Urine nitrite detection by test strip | + + + + + + + + + | Urine | 2022-02-01 | [facility] | NEGATIVE | (missing) | (missing) | | nitrite | 16:09 | [facility] | | | | | detection by | | Hospital | | | | | test strip | | | | | | + + + + + + + + + | Urine nitrite detection by test strip | + + + + + + + + + | Urine | 2022-01-22 | [facility] | NEGATIVE | (missing) | (missing) | | nitrite | 19:30 | [facility] | | | | | detection by | | Hospital | | | | | test strip | | | | | | + + + + + + + + + | Urine pH measurement by test strip | + + + + + +-------+ + + | Urine pH | 2022-01-22 | [facility] | 6.0 | (missing) | (missing) | | measurement | 19:30 | [facility] | | | | | by test | | Hospital | | | | | strip | | | | | | + + + +-------+ + + + + | Urine pH measurement by test strip | + + + + + +-------+ + + | Urine pH | 2022-02-01 | [facility] | 5.0 | (missing) | (missing) | | measurement | 16:09 | [facility] | | | | | by test | | Hospital | | | | | strip | | | | | | + + + +-------+ + + + + | Protein urine test strip | + + + + + +-------+ + + | Protein | 2022-01-22 | [facility] | 100 | (missing) | (missing) | | urine test | 19:30 | [facility] | | | | | strip | | [facility] | | | | + + + +-------+ + + + + | Protein urine test strip | + + + + + +-------+ + + | Protein | 2022-02-01 | [facility] | 100 | (missing) | (missing) | | urine test | 16:09 | [facility] | | | | | strip | | Hospital | | | | + + + +-------+ + + + + | Specific gravity ur dipstick | + + + + + +---------+ + + | Specific | 2022-01-22 | [facility] | 1.020 | (missing) | (missing) | | gravity ur | 19:30 | [facility] | | | | | dipstick | | [facility] | | | | + + + +---------+ + + + + | Specific gravity ur dipstick | + + + + + +---------+ + + | Specific | 2022-02-01 | [facility] | 1.025 | (missing) | (missing) | | gravity ur | 16:09 | [facility] | | | | | dipstick | | [facility] | | | | + + + +---------+ + + + + | Automated urine sediment leukocyte count by microscopy (number/high power field) | + + + + + +--------+ + + | Automated | 2022-02-01 | [facility] | 7-11 | (missing) | (missing) | | urine | 16:09 | [facility] | | | | | sediment | | [facility] | | | | | leukocyte | | | | | | | count by | | | | | | | microscopy | | | | | | | (number/high | | | | | | | power | | | | | | | field) | | | | | | + + + +--------+ + + + + | Automated urine sediment leukocyte count by microscopy (number/high power field) | + + + + + +--------+ + + | Automated | 2022-01-22 | [facility] | 7-11 | (missing) | (missing) | | urine | 19:30 | [facility] | | | | | sediment | | Hospital | | | | | leukocyte | | | | | | | count by | | | | | | | microscopy | | | | | | | (number/high | | | | | | | power | | | | | | | field) | | | | | | + + + +--------+ + + + + | Prothrombin time (PT) in platelet poor plasma by coagulation assay | + + + + + +--------+ + + | Prothrombin | 2022-03-26 | [facility] | 12.8 | (missing) | (missing) | | time (PT) | 21:54 | [facility] | | | | | in platelet | | Hospital | | | | | poor plasma | | | | | | | by | | | | | | | coagulation | | | | | | | assay | | | | | | + + + +--------+ + + | Prothrombin | 2022-04-06 | [facility] | 12.4 | (missing) | (missing) | | time (PT) | 15:17 | [facility] | | | | | in platelet | | Hospital | | | | | poor plasma | | | | | | | by | | | | | | | coagulation | | | | | | | assay | | | | | | + + + +--------+ + + + + | Prothrombin time (PT) in platelet poor plasma by coagulation assay | + + + + + +--------+ + + | Prothrombin | 2022-04-04 | [facility] | 12.8 | (missing) | (missing) | | time (PT) | 16:35 | [facility] | | | | | in platelet | | Hospital | | | | | poor plasma | | | | | | | by | | | | | | | coagulation | | | | | | | assay | | | | | | + + + +--------+ + + + + | Automated blood monocyte count as percentage of total leukocytes | + + + + + +-------+ + + | Automated | 2022-02-28 | [facility] | 5.6 | (missing) | (missing) | | blood | 00:35 | [facility] | | | | | monocyte | | Hospital | | | | | count as | | | | | | | percentage | | | | | | | of total | | | | | | | leukocytes | | | | | | + + + +-------+ + + | Automated | 2022-03-17 | [facility] | 6.2 | (missing) | (missing) | | blood | 15:04 | [facility] | | | | | monocyte | | Hospital | | | | | count as | | | | | | | percentage | | | | | | | of total | | | | | | | leukocytes | | | | | | + + + +-------+ + + | Automated | 2022-03-25 | [facility] | 4.5 | (missing) | (missing) | | blood | 16:07 | [facility] | | | | | monocyte | | Hospital | | | | | count as | | | | | | | percentage | | | | | | | of total | | | | | | | leukocytes | | | | | | + + + +-------+ + + | Automated | 2022-03-26 | [facility] | 5.2 | (missing) | (missing) | | blood | 21:54 | [facility] | | | | | monocyte | | Hospital | | | | | count as | | | | | | | percentage | | | | | | | of total | | | | | | | leukocytes | | | | | | + + + +-------+ + + | Automated | 2022-04-06 | [facility] | 4.3 | (missing) | (missing) | | blood | 15:17 | [facility] | | | | | [facility] | | [facility] | | | | | count as | | | | | | | percentage | | | | | | | of total | | | | | | | leukocytes | | | | | | + + + +-------+ + + + + | Automated blood monocyte count as percentage of total leukocytes | + + + + + +-------+ + + | Automated | 2022-01-03 | [facility] | 5.0 | (missing) | (missing) | | blood | 15:10 | [facility] | | | | [facility] | | [facility] | | | | | count as | | | | | | | percentage | | | | | | | of total | | | | | | | leukocytes | | | | | | + + + +-------+ + + | Automated | 2022-01-24 | [facility] | 4.2 | (missing) | (missing) | | blood | 15:21 | [facility] | | | | [facility] | | [facility] | | | | | count as | | | | | | | percentage | | | | | | | of total | | | | | | | leukocytes | | | | | | + + + +-------+ + + | Automated | 2022-02-28 | [facility] | 5.9 | (missing) | (missing) | | blood | 16:56 | [facility] | | | | | [facility] | | [facility] | | | | | count as | | | | | | | percentage | | | | | | | of total | | | | | | | leukocytes | | | | | | + + + +-------+ + + | Automated | 2022-04-04 | [facility] | 5.8 | (missing) | (missing) | | blood | 16:35 | [facility] | | | | | [facility] | | [facility] | | | | | count as | | | | | | | percentage | | | | | | | of total | | | | | | | leukocytes | | | | | | + + + +-------+ + + | Automated | 2022-04-13 | [facility] | 4.2 | (missing) | (missing) | | blood | 13:20 | [facility] | | | | | [facility] | | [facility] | | | | | count as | | | | | | | percentage | | | | | | | of total | | | | | | | leukocytes | | | | | | + + + +-------+ + + | Automated | 2022-04-19 | [facility] | 5.1 | (missing) | (missing) | | blood | 12:01 | [facility] | | | | | [facility] | | [facility] | | | | | count as | | | | | | | percentage | | | | | | | of total | | | | | | | leukocytes | | | | | | + + + +-------+ + + + + | Automated blood monocyte count as percentage of total leukocytes | + + + + + +-------+ + + | Automated | 2022-01-22 | [facility] | 4.4 | (missing) | (missing) | | blood | 17:25 | [facility] | | | | monocyte | | [facility] | | | | | count as | | | | | | | percentage | | | | | | | of total | | | | | | | leukocytes | | | | | | + + + +-------+ + + + + | Bacterial blood culture | + + + + + + + + + | Serum or | 2022-01-03 | [facility] | 8.9 | (missing) | (missing) | | plasma | 16:40 | [facility] | | [facility] cardiac | | [facility] | | | | | troponin I | | | | | | | measurement | | | | | | | by high | | | | | | | senstivity | | | | | | | method | | | | | | | (mass/volume | | | | | | | ) | | | | | | + + + + + + + | Respiratory | 2022-01-22 | [facility] | NEGATIVE | (missing) | (missing) | | specimen | 19:36 | [facility] | | | | | 2019 novel | | [facility] | | | | | coronavirus | | | | | | | RNA | | | | | | | detection | | | | | | + + + + + + + | Serum or | 2022-01-24 | [facility] | 9.9 | (missing) | (missing) | | plasma | 19:26 | [facility] cardiac | | [facility] | | | | | troponin I | | | | | | | measurement | | | | | | | by high | | | | | | | senstivity | | | | | | | method | | | | | | | (mass/volume | | | | | | | ) | | | | | | + + + + + + + | Color of | 2022-02-01 | [facility] | YELLOW | (missing) | (missing) | | Urine by | 16:09 | [facility] | | | [facility] Auto | | [facility] | | | | + + + + + + + + + | Respiratory syncytial virus (RSV) RNA detection by probe and target amplification | | method in culture isolate | + + + + + + + + + | Respiratory | 2022-01-22 | [facility] | NEGATIVE | (missing) | (missing) | | syncytial | 19:36 | [facility] | | | | | virus (RSV) | | Hospital | | | | | RNA | | | | | | | detection by | | | | | | | probe and | | | | | | | target | | | | | | | amplificatio | | | | | | | n method in | | | | | | | culture | | | | | | | isolate | | | | | | + + + + + + + + + | Respiratory syncytial virus (RSV) RNA detection by probe and target amplification | | method in culture isolate | + + + + + + + + + | Respiratory | 2022-03-26 | [facility] | NEGATIVE | (missing) | (missing) | | syncytial | 21:50 | [facility] | | | | | virus (RSV) | | [facility] | | | | | RNA | | | | | | | detection by | | | | | | | probe and | | | | | | | target | | | | | | | amplificatio | | | | | | | n method in | | | | | | | culture | | | | | | | isolate | | | | | | + + + + + + + + + | Bacterial urine culture | + + + + + +-------+ + + | Blood | 2022-02-28 | [facility] | 9.3 | (missing) | (missing) | | leukocytes | 00:35 | [facility] | | | | automated | | [facility] | | | | | count | | | | | | | (number/volu | | | | | | | me) | | | | | | + + + +-------+ + + | Serum or | 2022-02-28 | [facility] | 7.5 | (missing) | (missing) | | plasma | 18:31 | [facility] | | | cardiac | | [facility] | | | | | troponin I | | | | | | | measurement | | | | | | | by high | | | | | | | senstivity | | | | | | | method | | | | | | | (mass/volume | | | | | | | ) | | | | | | + + + +-------+ + + + + | Bacterial urine culture | + + + + + + + + + | Blood | 2022-01-03 | [facility] | 10.0 | (missing) | (missing) | | leukocytes | 15:10 | [facility] | | | | automated | | [facility] | | | | | count | | | | | | | (number/volu | | | | | | | me) | | | | | | + + + + + + + | Influenza | 2022-01-22 | [facility] | NEGATIVE | (missing) | (missing) | | virus A RNA | 19:36 | [facility] | | | | | [facility] | | [facility] | | | | | in | | | | | | | Respiratory | | | | | | | specimen by | | | | | | | KAREL | | | | | | | withprobe | | | | | | | detection | | | | | | + + + + + + + | Blood | 2022-01-24 | [facility] | 8.6 | (missing) | (missing) | | leukocytes | 15:21 | [facility] | | | | automated | | [facility] | | | | | count | | | | | | | (number/volu | | | | | | | me) | | | | | | + + + + + + + | Character | 2022-02-01 | [facility] | CLEAR | (missing) | (missing) | | of Urine | 16:09 | [facility] | | | [facility] | | | | + + + + + + + + + | Reflexive urine bacterial culture | + + + + + +-------+ + + | Reflexive | 2022-02-01 | [facility] | Yes | (missing) | (missing) | | urine | 16:09 | [facility] | | | | bacterial | | [facility] | | | | | culture | | | | | | + + + +-------+ + + + + | Reflexive urine bacterial culture | + + + + + +------+ + + | Reflexive | 2022-01-22 | [facility] | No | (missing) | (missing) | | urine | 19:30 | [facility] | | | | bacterial | | [facility] | | | | | culture | | | | | | + + + +------+ + + + + | INR in Platelet poor plasma by Coagulation assay | + + + + + +--------+ + + | INR in | 2022-03-26 | [facility] | 0.98 | (missing) | (missing) | | Platelet | 21:54 | [facility] | | | | | poor plasma | | [facility] | | | | | by | | | | | | | Coagulation | | | | | | | assay | | | | | | + + + +--------+ + + | INR in | 2022-04-06 | [facility] | 0.95 | (missing) | (missing) | | Platelet | 15:17 | [facility] | | | | | poor plasma | | [facility] | | | | | by | | | | | | | Coagulation | | | | | | | assay | | | | | | + + + +--------+ + + + + | INR in Platelet poor plasma by Coagulation assay | + + + + + +--------+ + + | INR in | 2022-04-04 | [facility] | 0.99 | (missing) | (missing) | | Platelet | 16:35 | [facility] | | | | | poor plasma | | [facility] | | | | | by | | | | | | | Coagulation | | | | | | | assay | | | | | | + + + +--------+ + + + + | Blood leukocytes automated count (number/volume) | + + + + + +-------+ + + | Blood | 2022-03-17 | [facility] | 7.2 | (missing) | (missing) | | leukocytes | 15:04 | [facility] | | | | automated | | [facility] | | | | | count | | | | | | | (number/volu | | | | | | | me) | | | | | | + + + +-------+ + + | Blood | 2022-03-25 | [facility] | 9.4 | (missing) | (missing) | | leukocytes | 16:07 | [facility] | | | | automated | | [facility] | | | | | count | | | | | | | (number/volu | | | | | | | me) | | | | | | + + + +-------+ + + | Blood | 2022-03-26 | [facility] | 9.1 | (missing) | (missing) | | leukocytes | 21:54 | [facility] | | | | automated | | [facility] | | | | | count | | | | | | | (number/volu | | | | | | | me) | | | | | | + + + +-------+ + + | Blood | 2022-04-06 | [facility] | 9.3 | (missing) | (missing) | | leukocytes | 15:17 | [facility] | | | | automated | | [facility] | | | | | count | | | | | | | (number/volu | | | | | | | me) | | | | | | + + + +-------+ + + + + | Blood leukocytes automated count (number/volume) | + + + + + +-------+ + + | Blood | 2022-02-28 | [facility] | 6.7 | (missing) | (missing) | | leukocytes | 16:56 | [facility] | | | | automated | | [facility] | | | | | count | | | | | | | (number/volu | | | | | | | me) | | | | | | + + + +-------+ + + | Blood | 2022-04-04 | [facility] | 9.5 | (missing) | (missing) | | leukocytes | 16:35 | [facility] | | | | automated | | [facility] | | | | | count | | | | | | | (number/volu | | | | | | | me) | | | | | | + + + +-------+ + + | Blood | 2022-04-13 | [facility] | 7.9 | (missing) | (missing) | | leukocytes | 13:20 | [facility] | | | | automated | | [facility] | | | | | count | | | | | | | (number/volu | | | | | | | me) | | | | | | + + + +-------+ + + | Blood | 2022-04-19 | [facility] | 8.6 | (missing) | (missing) | | leukocytes | 12:01 | [facility] | | | | automated | | [facility] | | | | | count | | | | | | | (number/volu | | | | | | | me) | | | | | | + + + +-------+ + + + + | Blood leukocytes automated count (number/volume) | + + + + + +-------+ + + | Blood | 2022-01-22 | [facility] | 7.7 | (missing) | (missing) | | leukocytes | 17:25 | [facility] | | | [facility] automated | | [facility] | | | | | count | | | | | | | (number/volu | | | | | | | me) | | | | | | + + + +-------+ + + + + | Serum or plasma alkaline phosphatase measurement (enzymatic activity/volume) | + + + + + +------+ + + | Serum or | 2022-03-17 | [facility] | 67 | (missing) | (missing) | | plasma | 15:04 | [facility] | | | | | alkaline | | [facility] | | | | | phosphatase | | | | | | | measurement | | | | | | | (enzymatic | | | | | | | activity/vol | | | | | | | ume) | | | | | | + + + +------+ + + + + | Serum or plasma alkaline phosphatase measurement (enzymatic activity/volume) | + + + + + +------+ + + | Serum or | 2022-02-28 | [facility] | 55 | (missing) | (missing) | | plasma | 16:56 | [facility] | | | | alkaline | | [facility] | | | | | phosphatase | | | | | | | measurement | | | | | | | (enzymatic | | | | | | | activity/vol | | | | | | | ume) | | | | | | + + + +------+ + + | Serum or | 2022-03-25 | [facility] | 68 | (missing) | (missing) | | plasma | 16:07 | [facility] | | | | alkaline | | [facility] | | | | | phosphatase | | | | | | | measurement | | | | | | | (enzymatic | | | | | | | activity/vol | | | | | | | ume) | | | | | | + + + +------+ + + + + | Serum or plasma alkaline phosphatase measurement (enzymatic activity/volume) | + + + + + +------+ + + | Serum or | 2022-01-03 | [facility] | 80 | (missing) | (missing) | | plasma | 15:10 | [facility] | | | | alkaline | | [facility] | | | | | phosphatase | | | | | | | measurement | | | | | | | (enzymatic | | | | | | | activity/vol | | | | | | | ume) | | | | | | + + + +------+ + + | Serum or | 2022-01-24 | [facility] | 78 | (missing) | (missing) | | plasma | 15:21 | [facility] | | | | alkaline | | [facility] | | | | | phosphatase | | | | | | | measurement | | | | | | | (enzymatic | | | | | | | activity/vol | | | | | | | ume) | | | | | | + + + +------+ + + | Serum or | 2022-04-13 | [facility] | 71 | (missing) | (missing) | | plasma | 13:20 | [facility] | | | | | alkaline | | [facility] | | | | | phosphatase | | | | | | | measurement | | | | | | | (enzymatic | | | | | | | activity/vol | | | | | | | ume) | | | | | | + + + +------+ + + + + | Serum or plasma alkaline phosphatase measurement (enzymatic activity/volume) | + + + + + +------+ + + | Serum or | 2022-03-26 | [facility] | 64 | (missing) | (missing) | | plasma | 21:54 | [facility] | | | | alkaline | | [facility] | | | | | phosphatase | | | | | | | measurement | | | | | | | (enzymatic | | | | | | | activity/vol | | | | | | | ume) | | | | | | + + + +------+ + + + + | Serum or plasma alkaline phosphatase measurement (enzymatic activity/volume) | + + + + + +------+ + + | Serum or | 2022-04-04 | [facility] | 72 | (missing) | (missing) | | plasma | 16:35 | [facility] | | | | alkaline | | [facility] | | | | | phosphatase | | | | | | | measurement | | | | | | | (enzymatic | | | | | | | activity/vol | | | | | | | ume) | | | | | | + + + +------+ + + | Serum or | 2022-04-06 | [facility] | 62 | (missing) | (missing) | | plasma | 15:17 | [facility] | | | | alkaline | | [facility] | | | | | phosphatase | | | | | | | measurement | | | | | | | (enzymatic | | | | | | | activity/vol | | | | | | | ume) | | | | | | + + + +------+ + + + + | Serum or plasma alkaline phosphatase measurement (enzymatic activity/volume) | + + + + + +------+ + + | Serum or | 2022-01-22 | [facility] | 70 | (missing) | (missing) | | plasma | 17:25 | [facility] | | | | alkaline | | [facility] | | | | | phosphatase | | | | | | | measurement | | | | | | | (enzymatic | | | | | | | activity/vol | | | | | | | ume) | | | | | | + + + +------+ + + + + | Automated blood basophil count as percentage of total leukocytes | + + + + + +-------+ + + | Automated | 2022-02-28 | [facility] | 0.6 | (missing) | (missing) | | blood | 00:35 | [facility] | | | | | basophil | | [facility] | | | | | count as | | | | | | | percentage | | | | | | | of total | | | | | | | leukocytes | | | | | | + + + +-------+ + + | Automated | 2022-03-17 | [facility] | 0.6 | (missing) | (missing) | | blood | 15:04 | [facility] | | | | | basophil | | [facility] | | | | | count as | | | | | | | percentage | | | | | | | of total | | | | | | | leukocytes | | | | | | + + + +-------+ + + | Automated | 2022-03-25 | [facility] | 0.4 | (missing) | (missing) | | blood | 16:07 | [facility] | | | | | basophil | | [facility] | | | | | count as | | | | | | | percentage | | | | | | | of total | | | | | | | leukocytes | | | | | | + + + +-------+ + + | Automated | 2022-03-26 | [facility] | 0.8 | (missing) | (missing) | | blood | 21:54 | [facility] | | | | | basophil | | [facility] | | | | | count as | | | | | | | percentage | | | | | | | of total | | | | | | | leukocytes | | | | | | + + + +-------+ + + | Automated | 2022-04-06 | [facility] | 0.7 | (missing) | (missing) | | blood | 15:17 | [facility] | | | | | basophil | | [facility] | | | | | count as | | | | | | | percentage | | | | | | | of total | | | | | | | leukocytes | | | | | | + + + +-------+ + + + + | Automated blood basophil count as percentage of total leukocytes | + + + + + +-------+ + + | Automated | 2022-01-03 | [facility] | 0.8 | (missing) | (missing) | | blood | 15:10 | [facility] | | | | | basophil | | [facility] | | | | | count as | | | | | | | percentage | | | | | | | of total | | | | | | | leukocytes | | | | | | + + + +-------+ + + | Automated | 2022-01-24 | [facility] | 0.6 | (missing) | (missing) | | blood | 15:21 | [facility] | | | | | basophil | | [facility] | | | | | count as | | | | | | | percentage | | | | | | | of total | | | | | | | leukocytes | | | | | | + + + +-------+ + + | Automated | 2022-02-28 | [facility] | 1.0 | (missing) | (missing) | | blood | 16:56 | [facility] | | | | | basophil | | [facility] | | | | | count as | | | | | | | percentage | | | | | | | of total | | | | | | | leukocytes | | | | | | + + + +-------+ + + | Automated | 2022-04-04 | [facility] | 0.7 | (missing) | (missing) | | blood | 16:35 | [facility] | | | | | basophil | | [facility] | | | | | count as | | | | | | | percentage | | | | | | | of total | | | | | | | leukocytes | | | | | | + + + +-------+ + + | Automated | 2022-04-13 | [facility] | 0.9 | (missing) | (missing) | | blood | 13:20 | [facility] | | | | | basophil | | [facility] | | | | | count as | | | | | | | percentage | | | | | | | of total | | | | | | | leukocytes | | | | | | + + + +-------+ + + | Automated | 2022-04-19 | [facility] | 0.9 | (missing) | (missing) | | blood | 12:01 | [facility] | | | | | basophil | | [facility] | | | | | count as | | | | | | | percentage | | | | | | | of total | | | | | | | leukocytes | | | | | | + + + +-------+ + + + + | Automated blood basophil count as percentage of total leukocytes | + + + + + +-------+ + + | Automated | 2022-01-22 | [facility] | 0.7 | (missing) | (missing) | | blood | 17:25 | [facility] | | | | | basophil | | [facility] | | | | | count as | | | | | | | percentage | | | | | | | of total | | | | | | | leukocytes | | | | | | + + + +-------+ + + + + | Automated blood eosinophil count as percentage of total leukocytes | + + + + + +-------+ + + | Automated | 2022-02-28 | [facility] | 1.0 | (missing) | (missing) | | blood | 00:35 | [facility] | | | | | eosinophil | | [facility] | | | | | count as | | | | | | | percentage | | | | | | | of total | | | | | | | leukocytes | | | | | | + + + +-------+ + + | Automated | 2022-03-17 | [facility] | 2.4 | (missing) | (missing) | | blood | 15:04 | [facility] | | | | | eosinophil | | [facility] | | | | | count as | | | | | | | percentage | | | | | | | of total | | | | | | | leukocytes | | | | | | + + + +-------+ + + | Automated | 2022-03-25 | [facility] | 2.0 | (missing) | (missing) | | blood | 16:07 | [facility] | | | | | eosinophil | | [facility] | | | | | count as | | | | | | | percentage | | | | | | | of total | | | | | | | leukocytes | | | | | | + + + +-------+ + + | Automated | 2022-03-26 | [facility] | 1.8 | (missing) | (missing) | | blood | 21:54 | [facility] | | | | | eosinophil | | [facility] | | | | | count as | | | | | | | percentage | | | | | | | of total | | | | | | | leukocytes | | | | | | + + + +-------+ + + | Automated | 2022-04-06 | [facility] | 2.3 | (missing) | (missing) | | blood | 15:17 | [facility] | | | | | eosinophil | | [facility] | | | | | count as | | | | | | | percentage | | | | | | | of total | | | | | | | leukocytes | | | | | | + + + +-------+ + + + + | Automated blood eosinophil count as percentage of total leukocytes | + + + + + +-------+ + + | Automated | 2022-01-03 | [facility] | 2.9 | (missing) | (missing) | | blood | 15:10 | [facility] | | | | | eosinophil | | [facility] | | | | | count as | | | | | | | percentage | | | | | | | of total | | | | | | | leukocytes | | | | | | + + + +-------+ + + | Automated | 2022-01-24 | [facility] | 2.7 | (missing) | (missing) | | blood | 15:21 | [facility] | | | | | eosinophil | | [facility] | | | | | count as | | | | | | | percentage | | | | | | | of total | | | | | | | leukocytes | | | | | | + + + +-------+ + + | Automated | 2022-02-28 | [facility] | 1.6 | (missing) | (missing) | | blood | 16:56 | [facility] | | | | | eosinophil | | [facility] | | | | | count as | | | | | | | percentage | | | | | | | of total | | | | | | | leukocytes | | | | | | + + + +-------+ + + | Automated | 2022-04-04 | [facility] | 2.1 | (missing) | (missing) | | blood | 16:35 | [facility] | | | | | eosinophil | | [facility] | | | | | count as | | | | | | | percentage | | | | | | | of total | | | | | | | leukocytes | | | | | | + + + +-------+ + + | Automated | 2022-04-13 | [facility] | 2.3 | (missing) | (missing) | | blood | 13:20 | [facility] | | | | | eosinophil | | [facility] | | | | | count as | | | | | | | percentage | | | | | | | of total | | | | | | | leukocytes | | | | | | + + + +-------+ + + | Automated | 2022-04-19 | [facility] | 2.5 | (missing) | (missing) | | blood | 12:01 | [facility] | | | | | eosinophil | | [facility] | | | | | count as | | | | | | | percentage | | | | | | | of total | | | | | | | leukocytes | | | | | | + + + +-------+ + + + + | Automated blood eosinophil count as percentage of total leukocytes | + + + + + +-------+ + + | Automated | 2022-01-22 | [facility] | 1.8 | (missing) | (missing) | | blood | 17:25 | [facility] | | | | | eosinophil | | [facility] | | | | | count as | | | | | | | percentage | | | | | | | of total | | | | | | | leukocytes | | | | | | + + + +-------+ + + + + | Blood hemoglobin measurement (mass/volume) | + + + + + +--------+ + + | Blood | 2022-01-22 | [facility] | 10.8 | (missing) | (missing) | | hemoglobin | 17:25 | [facility] | | | | measurement | | [facility] | | | | | (mass/volume | | | | | | | ) | | | | | | + + + +--------+ + + + + | Blood hemoglobin measurement (mass/volume) | + + + + + +--------+ + + | Blood | 2022-02-28 | [facility] | 11.1 | (missing) | (missing) | | hemoglobin | 00:35 | [facility] | | | | measurement | | [facility] | | | | | (mass/volume | | | | | | | ) | | | | | | + + + +--------+ + + | Blood | 2022-03-17 | [facility] | 10.3 | (missing) | (missing) | | hemoglobin | 15:04 | [facility] | | | | measurement | | [facility] | | | | | (mass/volume | | | | | | | ) | | | | | | + + + +--------+ + + | Blood | 2022-03-25 | [facility] | 10.2 | (missing) | (missing) | | hemoglobin | 16:07 | [facility] | | | | measurement | | [facility] | | | | | (mass/volume | | | | | | | ) | | | | | | + + + +--------+ + + | Blood | 2022-03-26 | [facility] | 9.8 | (missing) | (missing) | | hemoglobin | 21:54 | [facility] | | | | measurement | | [facility] | | | | | (mass/volume | | | | | | | ) | | | | | | + + + +--------+ + + | Blood | 2022-04-06 | [facility] | 10.0 | (missing) | (missing) | | hemoglobin | 15:17 | [facility] | | | | measurement | | [facility] | | | | | (mass/volume | | | | | | | ) | | | | | | + + + +--------+ + + + + | Blood hemoglobin measurement (mass/volume) | + + + + + +--------+ + + | Blood | 2022-01-03 | [facility] | 10.9 | (missing) | (missing) | | hemoglobin | 15:10 | [facility] | | | | [facility] | | [facility] | | | | | (mass/volume | | | | | | | ) | | | | | | + + + +--------+ + + | Blood | 2022-01-24 | [facility] | 10.9 | (missing) | (missing) | | hemoglobin | 15:21 | [facility] | | | | measurement | | [facility] | | | | | (mass/volume | | | | | | | ) | | | | | | + + + +--------+ + + | Blood | 2022-02-28 | [facility] | 11.2 | (missing) | (missing) | | hemoglobin | 16:56 | [facility] | | | | measurement | | [facility] | | | | | (mass/volume | | | | | | | ) | | | | | | + + + +--------+ + + | Blood | 2022-04-04 | [facility] | 10.6 | (missing) | (missing) | | hemoglobin | 16:35 | [facility] | | | | [facility] | | [facility] | | | | | (mass/volume | | | | | | | ) | | | | | | + + + +--------+ + + | Blood | 2022-04-13 | [facility] | 10.1 | (missing) | (missing) | | hemoglobin | 13:20 | [facility] | | | | measurement | | [facility] | | | | | (mass/volume | | | | | | | ) | | | | | | + + + +--------+ + + | Blood | 2022-04-19 | [facility] | 10.0 | (missing) | (missing) | | hemoglobin | 12:01 | [facility] | | | | measurement | | [facility] | | | | | (mass/volume | | | | | | | ) | | | | | | + + + +--------+ + + + + | Automated blood hematocrit | + + + + + +--------+ + + | Automated | 2022-01-22 | [facility] | 34.3 | (missing) | (missing) | | blood | 17:25 | [facility] | | | | hematocrit | | [facility] | | | | + + + +--------+ + + + + | Automated blood hematocrit | + + + + + +--------+ + + | Automated | 2022-02-28 | [facility] | 33.5 | (missing) | (missing) | | blood | 00:35 | [facility] | | | | hematocrit | | [facility] | | | | + + + +--------+ + + | Automated | 2022-03-17 | [facility] | 31.0 | (missing) | (missing) | | blood | 15:04 | [facility] | | | | hematocrit | | [facility] | | | | + + + +--------+ + + | Automated | 2022-03-25 | [facility] | 31.6 | (missing) | (missing) | | blood | 16:07 | [facility] | | | | hematocrit | | [facility] | | | | + + + +--------+ + + | Automated | 2022-03-26 | [facility] | 30.5 | (missing) | (missing) | | blood | 21:54 | [facility] | | | | hematocrit | | [facility] | | | | + + + +--------+ + + | Automated | 2022-04-06 | [facility] | 31.0 | (missing) | (missing) | | blood | 15:17 | [facility] | | | | hematocrit | | [facility] | | | | + + + +--------+ + + + + | Automated blood hematocrit | + + + + + +--------+ + + | Automated | 2022-01-03 | [facility] | 33.9 | (missing) | (missing) | | blood | 15:10 | [facility] | | | | hematocrit | | [facility] | | | | + + + +--------+ + + | Automated | 2022-01-24 | [facility] | 33.8 | (missing) | (missing) | | blood | 15:21 | [facility] | | | | hematocrit | | [facility] | | | | + + + +--------+ + + | Automated | 2022-02-28 | [facility] | 33.6 | (missing) | (missing) | | blood | 16:56 | [facility] | | | | hematocrit | | [facility] | | | | + + + +--------+ + + | Automated | 2022-04-04 | [facility] | 32.0 | (missing) | (missing) | | blood | 16:35 | [facility] | | | | hematocrit | | [facility] | | | | + + + +--------+ + + | Automated | 2022-04-13 | [facility] | 31.5 | (missing) | (missing) | | blood | 13:20 | [facility] | | | | hematocrit | | [facility] | | | | + + + +--------+ + + | Automated | 2022-04-19 | [facility] | 30.1 | (missing) | (missing) | | blood | 12:01 | [facility] | | | | hematocrit | | [facility] | | | | + + + +--------+ + + + + | Automated blood lymphocyte count as percentage ot total leukocytes | + + + + + +--------+ + + | Automated | 2022-02-28 | [facility] | 21.5 | (missing) | (missing) | | blood | 00:35 | [facility] | | | | lymphocyte | | [facility] | | | | | count as | | | | | | | percentage | | | | | | | ot total | | | | | | | leukocytes | | | | | | + + + +--------+ + + | Automated | 2022-03-17 | [facility] | 29.3 | (missing) | (missing) | | blood | 15:04 | [facility] | | | | lymphocyte | | [facility] | | | | | count as | | | | | | | percentage | | | | | | | ot total | | | | | | | leukocytes | | | | | | + + + +--------+ + + | Automated | 2022-03-25 | [facility] | 25.3 | (missing) | (missing) | | blood | 16:07 | [facility] | | | | lymphocyte | | [facility] | | | | | count as | | | | | | | percentage | | | | | | | ot total | | | | | | | leukocytes | | | | | | + + + +--------+ + + | Automated | 2022-03-26 | [facility] | 24.8 | (missing) | (missing) | | blood | 21:54 | [facility] | | | | lymphocyte | | [facility] | | | | | count as | | | | | | | percentage | | | | | | | ot total | | | | | | | leukocytes | | | | | | + + + +--------+ + + | Automated | 2022-04-06 | [facility] | 24.6 | (missing) | (missing) | | blood | 15:17 | [facility] | | | | lymphocyte | | [facility] | | | | | count as | | | | | | | percentage | | | | | | | ot total | | | | | | | leukocytes | | | | | | + + + +--------+ + + + + | Automated blood lymphocyte count as percentage ot total leukocytes | + + + + + +--------+ + + | Automated | 2022-01-03 | [facility] | 29.9 | (missing) | (missing) | | blood | 15:10 | [facility] | | | | lymphocyte | | [facility] | | | | | count as | | | | | | | percentage | | | | | | | ot total | | | | | | | leukocytes | | | | | | + + + +--------+ + + | Automated | 2022-01-24 | [facility] | 27.0 | (missing) | (missing) | | blood | 15:21 | [facility] | | | | lymphocyte | | [facility] | | | | | count as | | | | | | | percentage | | | | | | | ot total | | | | | | | leukocytes | | | | | | + + + +--------+ + + | Automated | 2022-02-28 | [facility] | 26.3 | (missing) | (missing) | | blood | 16:56 | [facility] | | | | | lymphocyte | | [facility] | | | | | count as | | | | | | | percentage | | | | | | | ot total | | | | | | | leukocytes | | | | | | + + + +--------+ + + | Automated | 2022-04-04 | [facility] | 29.0 | (missing) | (missing) | | blood | 16:35 | [facility] | | | | lymphocyte | | [facility] | | | | | count as | | | | | | | percentage | | | | | | | ot total | | | | | | | leukocytes | | | | | | + + + +--------+ + + | Automated | 2022-04-13 | [facility] | 29.8 | (missing) | (missing) | | blood | 13:20 | [facility] | | | | lymphocyte | | [facility] | | | | | count as | | | | | | | percentage | | | | | | | ot total | | | | | | | leukocytes | | | | | | + + + +--------+ + + | Automated | 2022-04-19 | [facility] | 30.6 | (missing) | (missing) | | blood | 12:01 | [facility] | | | | lymphocyte | | [facility] | | | | | count as | | | | | | | percentage | | | | | | | ot total | | | | | | | leukocytes | | | | | | + + + +--------+ + + + + | Automated blood lymphocyte count as percentage ot total leukocytes | + + + + + +--------+ + + | Automated | 2022-01-22 | [facility] | 33.9 | (missing) | (missing) | | blood | 17:25 | [facility] | | | | lymphocyte | | [facility] | | | | | count as | | | | | | | percentage | | | | | | | ot total | | | | | | | leukocytes | | | | | | + + + +--------+ + + + + | Automated blood neutrophil count as percentage of total leukocytes | + + + + + +--------+ + + | Automated | 2022-02-28 | [facility] | 71.3 | (missing) | (missing) | | blood | 00:35 | [facility] | | | | neutrophil | | [facility] | | | | | count as | | | | | | | percentage | | | | | | | of total | | | | | | | leukocytes | | | | | | + + + +--------+ + + | Automated | 2022-03-17 | [facility] | 61.5 | (missing) | (missing) | | blood | 15:04 | [facility] | | | | | neutrophil | | [facility] | | | | | count as | | | | | | | percentage | | | | | | | of total | | | | | | | leukocytes | | | | | | + + + +--------+ + + | Automated | 2022-03-25 | [facility] | 67.8 | (missing) | (missing) | | blood | 16:07 | [facility] | | | | neutrophil | | [facility] | | | | | count as | | | | | | | percentage | | | | | | | of total | | | | | | | leukocytes | | | | | | + + + +--------+ + + | Automated | 2022-03-26 | [facility] | 67.4 | (missing) | (missing) | | blood | 21:54 | [facility] | | | | | neutrophil | | [facility] | | | | | count as | | | | | | | percentage | | | | | | | of total | | | | | | | leukocytes | | | | | | + + + +--------+ + + | Automated | 2022-04-06 | [facility] | 68.1 | (missing) | (missing) | | blood | 15:17 | [facility] | | | | neutrophil | | [facility] | | | | | count as | | | | | | | percentage | | | | | | | of total | | | | | | | leukocytes | | | | | | + + + +--------+ + + + + | Automated blood neutrophil count as percentage of total leukocytes | + + + + + +--------+ + + | Automated | 2022-01-03 | [facility] | 61.4 | (missing) | (missing) | | blood | 15:10 | [facility] | | | | neutrophil | | [facility] | | | | | count as | | | | | | | percentage | | | | | | | of total | | | | | | | leukocytes | | | | | | + + + +--------+ + + | Automated | 2022-01-24 | [facility] | 65.5 | (missing) | (missing) | | blood | 15:21 | [facility] | | | | neutrophil | | [facility] | | | | | count as | | | | | | | percentage | | | | | | | of total | | | | | | | leukocytes | | | | | | + + + +--------+ + + | Automated | 2022-02-28 | [facility] | 65.2 | (missing) | (missing) | | blood | 16:56 | [facility] | | | | | neutrophil | | [facility] | | | | | count as | | | | | | | percentage | | | | | | | of total | | | | | | | leukocytes | | | | | | + + + +--------+ + + | Automated | 2022-04-04 | [facility] | 62.4 | (missing) | (missing) | | blood | 16:35 | [facility] | | | | | neutrophil | | [facility] | | | | | count as | | | | | | | percentage | | | | | | | of total | | | | | | | leukocytes | | | | | | + + + +--------+ + + | Automated | 2022-04-13 | [facility] | 62.8 | (missing) | (missing) | | blood | 13:20 | [facility] | | | | | neutrophil | | [facility] | | | | | count as | | | | | | | percentage | | | | | | | of total | | | | | | | leukocytes | | | | | | + + + +--------+ + + | Automated | 2022-04-19 | [facility] | 60.9 | (missing) | (missing) | | blood | 12:01 | [facility] | | | | | neutrophil | | [facility] | | | | | count as | | | | | | | percentage | | | | | | | of total | | | | | | | leukocytes | | | | | | + + + +--------+ + + + + | Automated blood neutrophil count as percentage of total leukocytes | + + + + + +--------+ + + | Automated | 2022-01-22 | [facility] | 59.2 | (missing) | (missing) | | blood | 17:25 | [facility] | | | | neutrophil | | [facility] | | | | | count as | | | | | | | percentage | | | | | | | of total | | | | | | | leukocytes | | | | | | + + + +--------+ + + + + | Automated blood platelet count (count/volume) | + + + + + +-------+ + + | Automated | 2022-01-03 | [facility] | 366 | (missing) | (missing) | | blood | 15:10 | [facility] | | | | platelet | | [facility] | | | | | count | | | | | | | (count/volum | | | | | | | e) | | | | | | + + + +-------+ + + | Automated | 2022-01-24 | [facility] | 349 | (missing) | (missing) | | blood | 15:21 | [facility] | | | | platelet | | [facility] | | | | | count | | | | | | | (count/volum | | | | | | | e) | | | | | | + + + +-------+ + + | Automated | 2022-02-28 | [facility] | 291 | (missing) | (missing) | | blood | 16:56 | [facility] | | | | | platelet | | [facility] | | | | | count | | | | | | | (count/volum | | | | | | | e) | | | | | | + + + +-------+ + + | Automated | 2022-04-04 | [facility] | 332 | (missing) | (missing) | | blood | 16:35 | [facility] | | | | platelet | | [facility] | | | | | count | | | | | | | (count/volum | | | | | | | e) | | | | | | + + + +-------+ + + | Automated | 2022-04-13 | [facility] | 304 | (missing) | (missing) | | blood | 13:20 | [facility] | | | | platelet | | [facility] | | | | | count | | | | | | | (count/volum | | | | | | | e) | | | | | | + + + +-------+ + + | Automated | 2022-04-19 | [facility] | 292 | (missing) | (missing) | | blood | 12:01 | [facility] | | | | | platelet | | [facility] | | | | | count | | | | | | | (count/volum | | | | | | | e) | | | | | | + + + +-------+ + + + + | Automated blood platelet count (count/volume) | + + + + + +-------+ + + | Automated | 2022-01-22 | [facility] | 324 | (missing) | (missing) | | blood | 17:25 | [facility] | | | | platelet | | [facility] | | | | | count | | | | | | | (count/volum | | | | | | | e) | | | | | | + + + +-------+ + + + + | Automated blood platelet count (count/volume) | + + + + + +-------+ + + | Automated | 2022-02-28 | [facility] | 290 | (missing) | (missing) | | blood | 00:35 | [facility] | | | | platelet | | [facility] | | | | | count | | | | | | | (count/volum | | | | | | | e) | | | | | | + + + +-------+ + + | Automated | 2022-03-17 | [facility] | 259 | (missing) | (missing) | | blood | 15:04 | [facility] | | | | platelet | | [facility] | | | | | count | | | | | | | (count/volum | | | | | | | e) | | | | | | + + + +-------+ + + | Automated | 2022-03-25 | [facility] | 313 | (missing) | (missing) | | blood | 16:07 | [facility] | | | | | platelet | | [facility] | | | | | count | | | | | | | (count/volum | | | | | | | e) | | | | | | + + + +-------+ + + | Automated | 2022-03-26 | [facility] | 325 | (missing) | (missing) | | blood | 21:54 | [facility] | | | | | platelet | | [facility] | | | | | count | | | | | | | (count/volum | | | | | | | e) | | | | | | + + + +-------+ + + | Automated | 2022-04-06 | [facility] | 310 | (missing) | (missing) | | blood | 15:17 | [facility] | | | | | platelet | | [facility] | | | | | count | | | | | | | (count/volum | | | | | | | e) | | | | | | + + + +-------+ + + + + | Automated erythrocyte mean corpuscular hemoglobin (mass per erythrocyte) | + + + + + +--------+ + + | Automated | 2022-01-22 | [facility] | 24.3 | (missing) | (missing) | | erythrocyte | 17:25 | [facility] | | | | mean | | [facility] | | | | | corpuscular | | | | | | | hemoglobin | | | | | | | (mass per | | | | | | | erythrocyte) | | | | | | | | | | | | | + + + +--------+ + + + + | Automated erythrocyte mean corpuscular hemoglobin (mass per erythrocyte) | + + + + + +--------+ + + | Automated | 2022-02-28 | [facility] | 24.9 | (missing) | (missing) | | erythrocyte | 00:35 | [facility] | | | | mean | | [facility] | | | | | corpuscular | | | | | | | hemoglobin | | | | | | | (mass per | | | | | | | erythrocyte) | | | | | | | | | | | | | + + + +--------+ + + | Automated | 2022-03-17 | [facility] | 25.5 | (missing) | (missing) | | erythrocyte | 15:04 | [facility] | | | | mean | | [facility] | | | | | corpuscular | | | | | | | hemoglobin | | | | | | | (mass per | | | | | | | erythrocyte) | | | | | | | | | | | | | + + + +--------+ + + | Automated | 2022-03-25 | [facility] | 25.1 | (missing) | (missing) | | erythrocyte | 16:07 | [facility] | | [facility] | | | | | corpuscular | | | | | | | hemoglobin | | | | | | | (mass per | | | | | | | erythrocyte) | | | | | | | | | | | | | + + + +--------+ + + | Automated | 2022-03-26 | [facility] | 24.9 | (missing) | (missing) | | erythrocyte | 21:54 | [facility] | | | [facility] | | [facility] | | | | | corpuscular | | | | | | | hemoglobin | | | | | | | (mass per | | | | | | | erythrocyte) | | | | | | | | | | | | | + + + +--------+ + + | Automated | 2022-04-06 | [facility] | 25.1 | (missing) | (missing) | | erythrocyte | 15:17 | [facility] | | | [facility] | | [facility] | | | | | corpuscular | | | | | | | hemoglobin | | | | | | | (mass per | | | | | | | erythrocyte) | | | | | | | | | | | | | + + + +--------+ + + + + | Automated erythrocyte mean corpuscular hemoglobin (mass per erythrocyte) | + + + + + +--------+ + + | Automated | 2022-01-03 | [facility] | 24.8 | (missing) | (missing) | | erythrocyte | 15:10 | [facility] | | [facility] | | | | | corpuscular | | | | | | | hemoglobin | | | | | | | (mass per | | | | | | | erythrocyte) | | | | | | | | | | | | | + + + +--------+ + + | Automated | 2022-01-24 | [facility] | 24.8 | (missing) | (missing) | | erythrocyte | 15:21 | [facility] | | [facility] | | [facility] | | | | | corpuscular | | | | | | | hemoglobin | | | | | | | (mass per | | | | | | | erythrocyte) | | | | | | | | | | | | | + + + +--------+ + + | Automated | 2022-02-28 | [facility] | 25.1 | (missing) | (missing) | | erythrocyte | 16:56 | [facility] | [facility] | | [facility] | | | | | corpuscular | | | | | | | hemoglobin | | | | | | | (mass per | | | | | | | erythrocyte) | | | | | | | | | | | | | + + + +--------+ + + | Automated | 2022-04-04 | [facility] | 25.5 | (missing) | (missing) | | erythrocyte | 16:35 | [facility] | | [facility] | | [facility] | | | | | corpuscular | | | | | | | hemoglobin | | | | | | | (mass per | | | | | | | erythrocyte) | | | | | | | | | | | | | + + + +--------+ + + | Automated | 2022-04-13 | [facility] | 24.9 | (missing) | (missing) | | erythrocyte | 13:20 | [facility] | | [facility] | | | | | corpuscular | | | | | | | hemoglobin | | | | | | | (mass per | | | | | | | erythrocyte) | | | | | | | | | | | | | + + + +--------+ + + | Automated | 2022-04-19 | [facility] | 25.7 | (missing) | (missing) | | erythrocyte | 12:01 | [facility] | | [facility] | | | | | corpuscular | | | | | | | hemoglobin | | | | | | | (mass per | | | | | | | erythrocyte) | | | | | | | | | | | | | + + + +--------+ + + + + | Automated erythrocyte mean corpuscular hemoglobin concentration measurement | | (mass/volume) | + + + + + +--------+ + + | Automated | 2022-01-22 | [facility] | 31.6 | (missing) | (missing) | | erythrocyte | 17:25 | [facility] | | | [facility] | | [facility] | | | | | corpuscular | | | | | | | hemoglobin | | | | | | | concentratio | | | | | | | n | | | | | | | measurement | | | | | | | (mass/volume | | | | | | | ) | | | | | | + + + +--------+ + + + + | Automated erythrocyte mean corpuscular hemoglobin concentration measurement | | (mass/volume) | + + + + + +--------+ + + | Automated | 2022-02-28 | [facility] | 33.0 | (missing) | (missing) | | erythrocyte | 00:35 | [facility] | | [facility] | | [facility] | | | | | corpuscular | | | | | | | hemoglobin | | | | | | | concentratio | | | | | | | n | | | | | | | measurement | | | | | | | (mass/volume | | | | | | | ) | | | | | | + + + +--------+ + + | Automated | 2022-03-17 | [facility] | 33.3 | (missing) | (missing) | | erythrocyte | 15:04 | [facility] | | | [facility] | | [facility] | | | | | corpuscular | | | | | | | hemoglobin | | | | | | | concentratio | | | | | | | n | | | | | | | measurement | | | | | | | (mass/volume | | | | | | | ) | | | | | | + + + +--------+ + + | Automated | 2022-03-25 | [facility] | 32.4 | (missing) | (missing) | | erythrocyte | 16:07 | [facility] | | [facility] | | [facility] | | | | | corpuscular | | | | | | | hemoglobin | | | | | | | concentratio | | | | | | | n | | | | | | | measurement | | | | | | | (mass/volume | | | | | | | ) | | | | | | + + + +--------+ + + | Automated | 2022-03-26 | [facility] | 32.2 | (missing) | (missing) | | erythrocyte | 21:54 | [facility] | | | [facility] | | [facility] | | | | | corpuscular | | | | | | | hemoglobin | | | | | | | concentratio | | | | | | | n | | | | | | | measurement | | | | | | | (mass/volume | | | | | | | ) | | | | | | + + + +--------+ + + | Automated | 2022-04-06 | [facility] | 32.3 | (missing) | (missing) | | erythrocyte | 15:17 | [facility] | | [facility] | | [facility] | | | | | corpuscular | | | | | | | hemoglobin | | | | | | | concentratio | | | | | | | n | | | | | | | measurement | | | | | | | (mass/volume | | | | | | | ) | | | | | | + + + +--------+ + + + + | Automated erythrocyte mean corpuscular hemoglobin concentration measurement | | (mass/volume) | + + + + + +--------+ + + | Automated | 2022-01-03 | [facility] | 32.0 | (missing) | (missing) | | erythrocyte | 15:10 | [facility] | | [facility] | | | | | corpuscular | | | | | | | hemoglobin | | | | | | | concentratio | | | | | | | n | | | | | | | measurement | | | | | | | (mass/volume | | | | | | | ) | | | | | | + + + +--------+ + + | Automated | 2022-01-24 | [facility] | 32.3 | (missing) | (missing) | | erythrocyte | 15:21 | [facility] | [facility] | | [facility] | | | | | corpuscular | | | | | | | hemoglobin | | | | | | | concentratio | | | | | | | n | | | | | | | measurement | | | | | | | (mass/volume | | | | | | | ) | | | | | | + + + +--------+ + + | Automated | 2022-02-28 | [facility] | 33.3 | (missing) | (missing) | | erythrocyte | 16:56 | [facility] | | [facility] | | [facility] | | | | | corpuscular | | | | | | | hemoglobin | | | | | | | concentratio | | | | | | | n | | | | | | | measurement | | | | | | | (mass/volume | | | | | | | ) | | | | | | + + + +--------+ + + | Automated | 2022-04-04 | [facility] | 33.0 | (missing) | (missing) | | erythrocyte | 16:35 | [facility] | | | [facility] | | [facility] | | | | | corpuscular | | | | | | | hemoglobin | | | | | | | concentratio | | | | | | | n | | | | | | | measurement | | | | | | | (mass/volume | | | | | | | ) | | | | | | + + + +--------+ + + | Automated | 2022-04-13 | [facility] | 32.1 | (missing) | (missing) | | erythrocyte | 13:20 | [facility] | | [facility] | | [facility] | | | | | corpuscular | | | | | | | hemoglobin | | | | | | | concentratio | | | | | | | n | | | | | | | measurement | | | | | | | (mass/volume | | | | | | | ) | | | | | | + + + +--------+ + + | Automated | 2022-04-19 | [facility] | 33.3 | (missing) | (missing) | | erythrocyte | 12:01 | [facility] | | [facility] | | [facility] | | | | | corpuscular | | | | | | | hemoglobin | | | | | | | concentratio | | | | | | | n | | | | | | | measurement | | | | | | | (mass/volume | | | | | | | ) | | | | | | + + + +--------+ + + + + | Automated erythrocyte mean corpuscular volume | + + + + + +--------+ + + | Automated | 2022-01-22 | [facility] | 76.9 | (missing) | (missing) | | erythrocyte | 17:25 | [facility] | | [facility] | | | | | corpuscular | | | | | | | volume | | | | | | + + + +--------+ + + + + | Automated erythrocyte mean corpuscular volume | + + + + + +--------+ + + | Automated | 2022-02-28 | [facility] | 75.4 | (missing) | (missing) | | erythrocyte | 00:35 | [facility] | | [facility] | | | | | corpuscular | | | | | | | volume | | | | | | + + + +--------+ + + | Automated | 2022-03-17 | [facility] | 76.6 | (missing) | (missing) | | erythrocyte | 15:04 | [facility] | | [facility] | | | | | corpuscular | | | | | | | volume | | | | | | + + + +--------+ + + | Automated | 2022-03-25 | [facility] | 77.4 | (missing) | (missing) | | erythrocyte | 16:07 | [facility] | | [facility] | | | | | corpuscular | | | | | | | volume | | | | | | + + + +--------+ + + | Automated | 2022-03-26 | [facility] | 77.2 | (missing) | (missing) | | erythrocyte | 21:54 | [facility] | | [facility] | | | | | corpuscular | | | | | | | volume | | | | | | + + + +--------+ + + | Automated | 2022-04-06 | [facility] | 77.7 | (missing) | (missing) | | erythrocyte | 15:17 | [facility] | | [facility] | | | | | corpuscular | | | | | | | volume | | | | | | + + + +--------+ + + + + | Automated erythrocyte mean corpuscular volume | + + + + + +--------+ + + | Automated | 2022-01-03 | [facility] | 77.7 | (missing) | (missing) | | erythrocyte | 15:10 | [facility] | | [facility] | | | | | corpuscular | | | | | | | volume | | | | | | + + + +--------+ + + | Automated | 2022-01-24 | [facility] | 76.7 | (missing) | (missing) | | erythrocyte | 15:21 | [facility] | | [facility] | | | | | corpuscular | | | | | | | volume | | | | | | + + + +--------+ + + | Automated | 2022-02-28 | [facility] | 75.5 | (missing) | (missing) | | erythrocyte | 16:56 | [facility] | | [facility] | | | | | corpuscular | | | | | | | volume | | | | | | + + + +--------+ + + | Automated | 2022-04-04 | [facility] | 77.2 | (missing) | (missing) | | erythrocyte | 16:35 | [facility] | | [facility] | | | | | corpuscular | | | | | | | volume | | | | | | + + + +--------+ + + | Automated | 2022-04-13 | [facility] | 77.5 | (missing) | (missing) | | erythrocyte | 13:20 | [facility] | | [facility] | | | | | corpuscular | | | | | | | volume | | | | | | + + + +--------+ + + | Automated | 2022-04-19 | [facility] | 77.4 | (missing) | (missing) | | erythrocyte | 12:01 | [facility] | | [facility] | | | | | corpuscular | | | | | | | volume | | | | | | + + + +--------+ + + + + | Blood erythrocytes automated count (number/volume) | + + + + + +--------+ + + | Blood | 2022-02-28 | [facility] | 4.45 | (missing) | (missing) | | erythrocytes | 00:35 | [facility] | | | [facility] | | [facility] | | | | | count | | | | | | | (number/volu | | | | | | | me) | | | | | | + + + +--------+ + + | Blood | 2022-03-17 | [facility] | 4.04 | (missing) | (missing) | | erythrocytes | 15:04 | [facility] | | | | automated | | [facility] | | | | | count | | | | | | | (number/volu | | | | | | | me) | | | | | | + + + +--------+ + + | Blood | 2022-03-25 | [facility] | 4.08 | (missing) | (missing) | | erythrocytes | 16:07 | [facility] | | | [facility] | | [facility] | | | | | count | | | | | | | (number/volu | | | | | | | me) | | | | | | + + + +--------+ + + | Blood | 2022-03-26 | [facility] | 3.94 | (missing) | (missing) | | erythrocytes | 21:54 | [facility] | | | [facility] automated | | [facility] | | | | | count | | | | | | | (number/volu | | | | | | | me) | | | | | | + + + +--------+ + + | Blood | 2022-04-06 | [facility] | 3.99 | (missing) | (missing) | | erythrocytes | 15:17 | [facility] | | | [facility] | | [facility] | | | | | count | | | | | | | (number/volu | | | | | | | me) | | | | | | + + + +--------+ + + + + | Blood erythrocytes automated count (number/volume) | + + + + + +--------+ + + | Blood | 2022-01-22 | [facility] | 4.46 | (missing) | (missing) | | erythrocytes | 17:25 | [facility] | | [facility] | | | | | count | | | | | | | (number/volu | | | | | | | me) | | | | | | + + + +--------+ + + + + | Blood erythrocytes automated count (number/volume) | + + + + + +--------+ + + | Blood | 2022-01-03 | [facility] | 4.37 | (missing) | (missing) | | erythrocytes | 15:10 | [facility] | | [facility] | | | | | count | | | | | | | (number/volu | | | | | | | me) | | | | | | + + + +--------+ + + | Blood | 2022-01-24 | [facility] | 4.41 | (missing) | (missing) | | erythrocytes | 15:21 | [facility] | | [facility] | | | | | count | | | | | | | (number/volu | | | | | | | me) | | | | | | + + + +--------+ + + | Blood | 2022-02-28 | [facility] | 4.45 | (missing) | (missing) | | erythrocytes | 16:56 | [facility] | | | [facility] | | [facility] | | | | | count | | | | | | | (number/volu | | | | | | | me) | | | | | | + + + +--------+ + + | Blood | 2022-04-04 | [facility] | 4.15 | (missing) | (missing) | | erythrocytes | 16:35 | [facility] | | [facility] | | [facility] | | | | | count | | | | | | | (number/volu | | | | | | | me) | | | | | | + + + +--------+ + + | Blood | 2022-04-13 | [facility] | 4.06 | (missing) | (missing) | | erythrocytes | 13:20 | [facility] | [facility] | | [facility] | | | | | count | | | | | | | (number/volu | | | | | | | me) | | | | | | + + + +--------+ + + | Blood | 2022-04-19 | [facility] | 3.90 | (missing) | (missing) | | erythrocytes | 12:01 | [facility] | | [facility] | | [facility] | | | | | count | | | | | | | (number/volu | | | | | | | me) | | | | | | + + + +--------+ + + + + | Serum or plasma cardiac troponin I measurement by high senstivity method (mass/volume) | + + + + + +--------+ + + | Serum or | 2022-04-04 | [facility] | 11.0 | (missing) | (missing) | | plasma | 18:12 | [facility] | [facility] | | | | | troponin I | | | | | | | measurement | | | | | | | by high | | | | | | | senstivity | | | | | | | method | | | | | | | (mass/volume | | | | | | | ) | | | | | | + + + +--------+ + + | Serum or | 2022-04-13 | [facility] | 9.5 | (missing) | (missing) | | plasma | 15:49 | [facility] | [facility] | | | | | troponin I | | | | | | | measurement | | | | | | | by high | | | | | | | senstivity | | | | | | | method | | | | | | | (mass/volume | | | | | | | ) | | | | | | + + + +--------+ + + | Serum or | 2022-04-19 | [facility] | 8.9 | (missing) | (missing) | | plasma | 13:27 | [facility] | [facility] | | | | | troponin I | | | | | | | measurement | | | | | | | by high | | | | | | | senstivity | | | | | | | method | | | | | | | (mass/volume | | | | | | | ) | | | | | | + + + +--------+ + + + + | Serum or plasma cardiac troponin I measurement by high senstivity method (mass/volume) | + + + + + +-------+ + + | Serum or | 2022-02-28 | [facility] | 6.2 | (missing) | (missing) | | plasma | 00:35 | [facility] | | | | | troponin I | | | | | | | measurement | | | | | | | by high | | | | | | | senstivity | | | | | | | method | | | | | | | (mass/volume | | | | | | | ) | | | | | | + + + +-------+ + + + + | Serum or plasma cardiac troponin I measurement by high senstivity method (mass/volume) | + + + + + +-------+ + + | Serum or | 2022-03-25 | [facility] | 9.9 | (missing) | (missing) | | plasma | 16:07 | [facility] | | | | | troponin I | | | | | | | measurement | | | | | | | by high | | | | | | | senstivity | | | | | | | method | | | | | | | (mass/volume | | | | | | | ) | | | | | | + + + +-------+ + + + + | Serum or plasma cardiac troponin I measurement by high senstivity method (mass/volume) | + + + + + +-------+ + + | Serum or | 2022-03-26 | [facility] | 9.4 | (missing) | (missing) | | plasma | 21:54 | [facility] | | | | | troponin I | | | | | | | measurement | | | | | | | by high | | | | | | | senstivity | | | | | | | method | | | | | | | (mass/volume | | | | | | | ) | | | | | | + + + +-------+ + + + + | Serum or plasma cardiac troponin I measurement by high senstivity method (mass/volume) | + + + + + +-------+ + + | Serum or | 2022-04-06 | [facility] | 9.6 | (missing) | (missing) | | plasma | 15:17 | [facility] | | | | | troponin I | | | | | | | measurement | | | | | | | by high | | | | | | | senstivity | | | | | | | method | | | | | | | (mass/volume | | | | | | | ) | | | | | | + + + +-------+ + + + + | Influenza virus B RNA [Presence] in Respiratory specimen by [facility] withprobe detection | + + + + + + + + + | Influenza | 2022-01-22 | [facility] | NEGATIVE | (missing) | (missing) | | virus B RNA | 19:36 | [facility] | | | | | [[facility]] | | [facility] | | | | | in | | | | | | | Respiratory | | | | | | | specimen by | | | | | | | [facility] | | | | | | | withprobe | | | | | | | detection | | | | | | + + + + + + + + + | Influenza virus B RNA [Presence] in Respiratory specimen by [facility] withprobe detection | + + + + + + + + + | Influenza | 2022-03-26 | [facility] | NEGATIVE | (missing) | (missing) | | virus B RNA | 21:50 | [facility] | | | | | [[facility]] | | [facility] | | | | | in | | | | | | | Respiratory | | | | | | | specimen by | | | | | | | KAREL | | | | | | | withprobe | | | | | | | detection | | | | | | + + + + + + + + + | Influenza virus A RNA [Presence] in Respiratory specimen by KAREL withprobe detection | + + + + + + + + + | Influenza | 2022-03-26 | [facility] | NEGATIVE | (missing) | (missing) | | virus A RNA | 21:50 | [facility] | | | | | [Presence] | | [facility] | | | | | in | | | | | | | Respiratory | | | | | | | specimen by | | | | | | | KAREL | | | | | | | withprobe | | | | | | | detection | | | | | | + + + + + + + + + | Respiratory specimen 2019 novel coronavirus RNA detection | + + + + + + + + + | Respiratory | 2022-03-26 | [facility] | NEGATIVE | (missing) | (missing) | | specimen | 21:50 | [facility] | | | | | 2019 novel | | Hospital | | | | | coronavirus | | | | | | | RNA | | | | | | | detection | | | | | | + + + + + + + + + | Automated casts count in urine sediment by microscopy low power field (number/area) | + + + + + + + + + | Automated | 2022-02-01 | [facility] | NONE SEEN | (missing) | (missing) | | casts count | 16:09 | [facility] | | | | | in urine | | Hospital | | | | | sediment by | | | | | | | microscopy | | | | | | | low power | | | | | | | field | | | | | | | (number/area | | | | | | | ) | | | | | | + + + + + + + + + | Automated casts count in urine sediment by microscopy low power field (number/area) | + + + + + + + + + | Automated | 2022-01-22 | [facility] | NONE SEEN | (missing) | (missing) | | casts count | 19:30 | [facility] | | | | | in urine | | Hospital | | | | | sediment by | | | | | | | microscopy | | | | | | | low power | | | | | | | field | | | | | | | (number/area | | | | | | | ) | | | | | | + + + + + + + + + | Glomerular filtration rate/1.73 sq M.predicted [Volume Rate/Area] inSerum, Plasma or | | Blood by Creatinine-based formula (CKD-EPI 2020) | + + + + + +------+ + + | Glomerular | 2022-03-17 | [facility] | 99 | (missing) | (missing) | | filtration | 15:04 | [facility] | | | | | rate/1.73 sq | | Hospital | | | | | M.predicted | | | | | | | [Volume | | | | | | | Rate/Area] | | | | | | | inSerum, | | | | | | | Plasma or | | | | | | | Blood by | | | | | | | Creatinine-b | | | | | | | ased formula | | | | | | | (CKD-EPI | | | | | | | 2020) | | | | | | + + + +------+ + + | Glomerular | 2022-03-25 | [facility] | 81 | (missing) | (missing) | | filtration | 16:07 | [facility] | | | | | rate/1.73 sq | | Hospital | | | | | M.predicted | | | | | | | [Volume | | | | | | | Rate/Area] | | | | | | | inSerum, | | | | | | | Plasma or | | | | | | | Blood by | | | | | | | Creatinine-b | | | | | | | ased formula | | | | | | | (CKD-EPI | | | | | | | 2020) | | | | | | + + + +------+ + + + + | Glomerular filtration rate/1.73 sq M.predicted [Volume Rate/Area] inSerum, Plasma or | | Blood by Creatinine-based formula (CKD-EPI 2020) | + + + + + +-------+ + + | Glomerular | 2022-01-03 | [facility] | 108 | (missing) | (missing) | | filtration | 15:10 | [facility] | | | | | rate/1.73 sq | | Hospital | | | | | M.predicted | | | | | | | [Volume | | | | | | | Rate/Area] | | | | | | | inSerum, | | | | | | | Plasma or | | | | | | | Blood by | | | | | | | Creatinine-b | | | | | | | ased formula | | | | | | | (CKD-EPI | | | | | | | 2020) | | | | | | + + + +-------+ + + | Glomerular | 2022-01-24 | [facility] | 92 | (missing) | (missing) | | filtration | 15:21 | [facility] | | | | | rate/1.73 sq | | Hospital | | | | | M.predicted | | | | | | | [Volume | | | | | | | Rate/Area] | | | | | | | inSerum, | | | | | | | Plasma or | | | | | | | Blood by | | | | | | | Creatinine-b | | | | | | | ased formula | | | | | | | (CKD-EPI | | | | | | | 2020) | | | | | | + + + +-------+ + + | Glomerular | 2022-02-28 | [facility] | 87 | (missing) | (missing) | | filtration | 16:56 | [facility] | | | | | rate/1.73 sq | | Hospital | | | | | M.predicted | | | | | | | [Volume | | | | | | | Rate/Area] | | | | | | | inSerum, | | | | | | | Plasma or | | | | | | | Blood by | | | | | | | Creatinine-b | | | | | | | ased formula | | | | | | | (CKD-EPI | | | | | | | 2020) | | | | | | + + + +-------+ + + | Glomerular | 2022-04-13 | [facility] | 79 | (missing) | (missing) | | filtration | 13:20 | [facility] | | | | | rate/1.73 sq | | Hospital | | | | | M.predicted | | | | | | | [Volume | | | | | | | Rate/Area] | | | | | | | inSerum, | | | | | | | Plasma or | | | | | | | Blood by | | | | | | | Creatinine-b | | | | | | | ased formula | | | | | | | (CKD-EPI | | | | | | | 2020) | | | | | | + + + +-------+ + + | Glomerular | 2022-04-19 | [facility] | 88 | (missing) | (missing) | | filtration | 12:01 | [facility] | | | | | rate/1.73 sq | | Hospital | | | | | M.predicted | | | | | | | [Volume | | | | | | | Rate/Area] | | | | | | | inSerum, | | | | | | | Plasma or | | | | | | | Blood by | | | | | | | Creatinine-b | | | | | | | ased formula | | | | | | | (CKD-EPI | | | | | | | 2020) | | | | | | + + + +-------+ + + + + | Glomerular filtration rate/1.73 sq M.predicted [Volume Rate/Area] inSerum, Plasma or | | Blood by Creatinine-based formula (CKD-EPI 2020) | + + + + + +------+ + + | Glomerular | 2022-03-26 | [facility] | 81 | (missing) | (missing) | | filtration | 21:54 | [facility] | | | | | rate/1.73 sq | | Hospital | | | | | M.predicted | | | | | | | [Volume | | | | | | | Rate/Area] | | | | | | | inSerum, | | | | | | | Plasma or | | | | | | | Blood by | | | | | | | Creatinine-b | | | | | | | ased formula | | | | | | | (CKD-EPI | | | | | | | 2020) | | | | | | + + + +------+ + + + + | Glomerular filtration rate/1.73 sq M.predicted [Volume Rate/Area] inSerum, Plasma or | | Blood by Creatinine-based formula (CKD-EPI 2020) | + + + + + +------+ + + | Glomerular | 2022-04-04 | [facility] | 85 | (missing) | (missing) | | filtration | 16:35 | [facility] | | | | | rate/1.73 sq | | Hospital | | | | | M.predicted | | | | | | | [Volume | | | | | | | Rate/Area] | | | | | | | inSerum, | | | | | | | Plasma or | | | | | | | Blood by | | | | | | | Creatinine-b | | | | | | | ased formula | | | | | | | (CKD-EPI | | | | | | | 2020) | | | | | | + + + +------+ + + | Glomerular | 2022-04-06 | [facility] | 82 | (missing) | (missing) | | filtration | 15:17 | [facility] | | | | | rate/1.73 sq | | Hospital | | | | | M.predicted | | | | | | | [Volume | | | | | | | Rate/Area] | | | | | | | inSerum, | | | | | | | Plasma or | | | | | | | Blood by | | | | | | | Creatinine-b | | | | | | | ased formula | | | | | | | (CKD-EPI | | | | | | | 2020) | | | | | | + + + +------+ + + + + | Glomerular filtration rate/1.73 sq M.predicted [Volume Rate/Area] inSerum, Plasma or | | Blood by Creatinine-based formula (CKD-EPI 2020) | + + + + + +------+ + + | Glomerular | 2022-01-22 | [facility] | 97 | (missing) | (missing) | | filtration | 17:25 | [facility] | | | | | rate/1.73 sq | | Hospital | | | | | M.predicted | | | | | | | [Volume | | | | | | | Rate/Area] | | | | | | | inSerum, | | | | | | | Plasma or | | | | | | | Blood by | | | | | | | Creatinine-b | | | | | | | ased formula | | | | | | | (CKD-EPI | | | | | | | 2020) | | | | | | + + + +------+ + + Social History + + + + | date | description | facility | + + + + | 2022-01-03 00:00 | Current Light tobacco | [facility] | | | smoker | | + + + + | 2022-01-22 00:00 | Current Light tobacco | [facility] | | | smoker | | + + + + | 2022-01-24 00:00 | Current Light tobacco | [facility] | | | smoker | | + + + + | 2022-02-01 00:00 | Current Light tobacco | [facility] | | | smoker | | + + + + | 2022-02-28 00:00 | Current Light tobacco | [facility] | | | smoker | | + + + + | 2022-03-14 00:00 | Current Light tobacco | [facility] | | | smoker | | + + + + | 2022-03-17 00:00 | Current Light tobacco | [facility] | | | smoker | | + + + + | 2022-03-25 00:00 | Current Light tobacco | [facility] | | | smoker | | + + + + | 2022-03-26 00:00 | Current Light tobacco | [facility] | | | smoker | | + + + + | 2022-04-04 00:00 | Current Light tobacco | [facility] | | | smoker | | + + + + | 2022-04-06 00:00 | Current Light tobacco | [facility] | | | smoker | | + + + + | 2022-04-08 00:00 | Current Light tobacco | [facility] | | | smoker | | + + + + | 2022-04-13 00:00 | Current Light tobacco | [facility] | | | smoker | | + + + + | 2022-04-19 00:00 | Current Light tobacco | [facility] | | | smoker | | + + + + Vital Signs + + + +---------+ | date | measurement | value | units | + + + +---------+ | 2021-09-03 00:00 | BMI | 42.0 | kg/m2 | + + + +---------+ | 2021-09-03 00:00 | BP_diastolic | 83 | mmHg | + + + +---------+ | 2021-09-03 00:00 | BP_systolic | 111 | mmHg | + + + +---------+ | 2021-09-03 00:00 | heart_rate | 95 | /min | + + + +---------+ | 2021-09-03 00:00 | height_metric | 167.64 | cm | + + + +---------+ | 2021-09-03 00:00 | height_standard | 66 | in | + + + +---------+ | 2021-09-03 00:00 | o2_saturation | 98 | % | + + + +---------+ | 2021-09-03 00:00 | respiration_rate | 18 | /min | + + + +---------+ | 2021-09-03 00:00 | temperature_metric | 36.78 | C | | | | | | + + + +---------+ | 2021-09-03 00:00 | | 98.2 | F | | | temperature_standar | | | | | d | | | + + + +---------+ | 2021-09-03 00:00 | weight_metric | 117.93 | kg | + + + +---------+ | 2021-09-03 00:00 | weight_standard | 259.99 | lb | + + + +---------+ | 2021-09-03 00:00 | weight_standard | 260 | lb | + + + +---------+ | 2021-10-26 00:00 | BMI | 42.0 | kg/m2 | + + + +---------+ | 2021-10-26 00:00 | BP_diastolic | 83 | mmHg | + + + +---------+ | 2021-10-26 00:00 | BP_systolic | 120 | mmHg | + + + +---------+ | 2021-10-26 00:00 | heart_rate | 94 | /min | + + + +---------+ | 2021-10-26 00:00 | height_metric | 167.64 | cm | + + + +---------+ | 2021-10-26 00:00 | height_standard | 66 | in | + + + +---------+ | 2021-10-26 00:00 | o2_saturation | 100 | % | + + + +---------+ | 2021-10-26 00:00 | respiration_rate | 23 | /min | + + + +---------+ | 2021-10-26 00:00 | temperature_metric | 37.39 | C | | | | | | + + + +---------+ | 2021-10-26 00:00 | | 99.3 | F | | | temperature_standar | | | | | d | | | + + + +---------+ | 2021-10-26 00:00 | weight_metric | 117.93 | kg | + + + +---------+ | 2021-10-26 00:00 | weight_standard | 259.99 | lb | + + + +---------+ | 2021-10-26 00:00 | weight_standard | 260 | lb | + + + +---------+ | 2021-10-27 00:00 | BMI | 41.1 | kg/m2 | + + + +---------+ | 2021-10-27 00:00 | BP_diastolic | 96 | mmHg | + + + +---------+ | 2021-10-27 00:00 | BP_systolic | 145 | mmHg | + + + +---------+ | 2021-10-27 00:00 | heart_rate | 95 | /min | + + + +---------+ | 2021-10-27 00:00 | height_metric | 167.64 | cm | + + + +---------+ | 2021-10-27 00:00 | height_standard | 66 | in | + + + +---------+ | 2021-10-27 00:00 | o2_saturation | 99 | % | + + + +---------+ | 2021-10-27 00:00 | respiration_rate | 18 | /min | + + + +---------+ | 2021-10-27 00:00 | temperature_metric | 36.94 | C | | | | | | + + + +---------+ | 2021-10-27 00:00 | | 98.5 | F | | | temperature_standar | | | | | d | | | + + + +---------+ | 2021-10-27 00:00 | weight_metric | 115.53 | kg | + + + +---------+ | 2021-10-27 00:00 | weight_standard | 254.7 | lb | + + + +---------+ | 2021-11-02 00:00 | BMI | 39.3 | kg/m2 | + + + +---------+ | 2021-11-02 00:00 | BP_diastolic | 95 | mmHg | + + + +---------+ | 2021-11-02 00:00 | BP_systolic | 143 | mmHg | + + + +---------+ | 2021-11-02 00:00 | heart_rate | 99 | /min | + + + +---------+ | 2021-11-02 00:00 | height_metric | 167.64 | cm | + + + +---------+ | 2021-11-02 00:00 | height_standard | 66 | in | + + + +---------+ | 2021-11-02 00:00 | o2_saturation | 99 | % | + + + +---------+ | 2021-11-02 00:00 | respiration_rate | 16 | /min | + + + +---------+ | 2021-11-02 00:00 | temperature_metric | 37.44 | C | | | | | | + + + +---------+ | 2021-11-02 00:00 | | 99.4 | F | | | temperature_standar | | | | | d | | | + + + +---------+ | 2021-11-02 00:00 | weight_metric | 110.4 | kg | + + + +---------+ | 2021-11-02 00:00 | weight_standard | 243.39 | lb | + + + +---------+ | 2021-11-22 00:00 | BMI | 37.9 | kg/m2 | + + + +---------+ | 2021-11-22 00:00 | BP_diastolic | 78 | mmHg | + + + +---------+ | 2021-11-22 00:00 | BP_systolic | 138 | mmHg | + + + +---------+ | 2021-11-22 00:00 | heart_rate | 99 | /min | + + + +---------+ | 2021-11-22 00:00 | height_metric | 167.64 | cm | + + + +---------+ | 2021-11-22 00:00 | height_standard | 66 | in | + + + +---------+ | 2021-11-22 00:00 | o2_saturation | 97 | % | + + + +---------+ | 2021-11-22 00:00 | respiration_rate | 20 | /min | + + + +---------+ | 2021-11-22 00:00 | temperature_metric | 36.78 | C | | | | | | + + + +---------+ | 2021-11-22 00:00 | | 98.2 | F | | | temperature_standar | | | | | d | | | + + + +---------+ | 2021-11-22 00:00 | weight_metric | 106.6 | kg | + + + +---------+ | 2021-11-22 00:00 | weight_standard | 235.01 | lb | + + + +---------+ | 2022-01-03 00:00 | BMI | 37.9 | kg/m2 | + + + +---------+ | 2022-01-03 00:00 | BP_diastolic | 97 | mmHg | + + + +---------+ | 2022-01-03 00:00 | BP_systolic | 161 | mmHg | + + + +---------+ | 2022-01-03 00:00 | heart_rate | 83 | /min | + + + +---------+ | 2022-01-03 00:00 | height_metric | 167.64 | cm | + + + +---------+ | 2022-01-03 00:00 | height_standard | 66 | in | + + + +---------+ | 2022-01-03 00:00 | o2_saturation | 100 | % | + + + +---------+ | 2022-01-03 00:00 | respiration_rate | 22 | /min | + + + +---------+ | 2022-01-03 00:00 | temperature_metric | 37 | C | | | | | | + + + +---------+ | 2022-01-03 00:00 | | 98.6 | F | | | temperature_standar | | | | | d | | | + + + +---------+ | 2022-01-03 00:00 | weight_metric | 106.59 | kg | + + + +---------+ | 2022-01-03 00:00 | weight_standard | 234.99 | lb | + + + +---------+ | 2022-01-03 00:00 | weight_standard | 235 | lb | + + + +---------+ | 2022-01-22 00:00 | BMI | 37.9 | kg/m2 | + + + +---------+ | 2022-01-22 00:00 | BP_diastolic | 87 | mmHg | + + + +---------+ | 2022-01-22 00:00 | BP_systolic | 141 | mmHg | + + + +---------+ | 2022-01-22 00:00 | heart_rate | 81 | /min | + + + +---------+ | 2022-01-22 00:00 | height_metric | 167.64 | cm | + + + +---------+ | 2022-01-22 00:00 | height_standard | 66 | in | + + + +---------+ | 2022-01-22 00:00 | o2_saturation | 100 | % | + + + +---------+ | 2022-01-22 00:00 | respiration_rate | 16 | /min | + + + +---------+ | 2022-01-22 00:00 | temperature_metric | 37.17 | C | | | | | | + + + +---------+ | 2022-01-22 00:00 | | 98.9 | F | | | temperature_standar | | | | | d | | | + + + +---------+ | 2022-01-22 00:00 | weight_metric | 106.59 | kg | + + + +---------+ | 2022-01-22 00:00 | weight_standard | 234.99 | lb | + + + +---------+ | 2022-01-22 00:00 | weight_standard | 235 | lb | + + + +---------+ | 2022-01-24 00:00 | BMI | 37.9 | kg/m2 | + + + +---------+ | 2022-01-24 00:00 | BP_diastolic | 90 | mmHg | + + + +---------+ | 2022-01-24 00:00 | BP_systolic | 145 | mmHg | + + + +---------+ | 2022-01-24 00:00 | heart_rate | 82 | /min | + + + +---------+ | 2022-01-24 00:00 | height_metric | 167.64 | cm | + + + +---------+ | 2022-01-24 00:00 | height_standard | 66 | in | + + + +---------+ | 2022-01-24 00:00 | o2_saturation | 100 | % | + + + +---------+ | 2022-01-24 00:00 | respiration_rate | 20 | /min | + + + +---------+ | 2022-01-24 00:00 | temperature_metric | 36.94 | C | | | | | | + + + +---------+ | 2022-01-24 00:00 | | 98.5 | F | | | temperature_standar | | | | | d | | | + + + +---------+ | 2022-01-24 00:00 | weight_metric | 106.59 | kg | + + + +---------+ | 2022-01-24 00:00 | weight_standard | 234.99 | lb | + + + +---------+ | 2022-01-24 00:00 | weight_standard | 235 | lb | + + + +---------+ | 2022-02-01 00:00 | BMI | 37.9 | kg/m2 | + + + +---------+ | 2022-02-01 00:00 | BP_diastolic | 72 | mmHg | + + + +---------+ | 2022-02-01 00:00 | BP_systolic | 123 | mmHg | + + + +---------+ | 2022-02-01 00:00 | heart_rate | 71 | /min | + + + +---------+ | 2022-02-01 00:00 | height_metric | 167.64 | cm | + + + +---------+ | 2022-02-01 00:00 | height_standard | 66 | in | + + + +---------+ | 2022-02-01 00:00 | o2_saturation | 99 | % | + + + +---------+ | 2022-02-01 00:00 | respiration_rate | 17 | /min | + + + +---------+ | 2022-02-01 00:00 | temperature_metric | 37.17 | C | | | | | | + + + +---------+ | 2022-02-01 00:00 | | 98.9 | F | | | temperature_standar | | | | | d | | | + + + +---------+ | 2022-02-01 00:00 | weight_metric | 106.59 | kg | + + + +---------+ | 2022-02-01 00:00 | weight_standard | 234.99 | lb | + + + +---------+ | 2022-02-01 00:00 | weight_standard | 235 | lb | + + + +---------+ | 2022-02-27 00:00 | BMI | 37.9 | kg/m2 | + + + +---------+ | 2022-02-27 00:00 | height_metric | 167.64 | cm | + + + +---------+ | 2022-02-27 00:00 | height_standard | 66 | in | + + + +---------+ | 2022-02-27 00:00 | weight_metric | 106.59 | kg | + + + +---------+ | 2022-02-27 00:00 | weight_standard | 234.99 | lb | + + + +---------+ | 2022-02-27 00:00 | weight_standard | 235 | lb | + + + +---------+ | 2022-02-28 00:00 | BMI | 37.9 | kg/m2 | + + + +---------+ | 2022-02-28 00:00 | BP_diastolic | 63 | mmHg | + + + +---------+ | 2022-02-28 00:00 | BP_diastolic | 65 | mmHg | + + + +---------+ | 2022-02-28 00:00 | BP_systolic | 117 | mmHg | + + + +---------+ | 2022-02-28 00:00 | BP_systolic | 91 | mmHg | + + + +---------+ | 2022-02-28 00:00 | heart_rate | 67 | /min | + + + +---------+ | 2022-02-28 00:00 | heart_rate | 76 | /min | + + + +---------+ | 2022-02-28 00:00 | height_metric | 167.64 | cm | + + + +---------+ | 2022-02-28 00:00 | height_standard | 66 | in | + + + +---------+ | 2022-02-28 00:00 | o2_saturation | 100 | % | + + + +---------+ | 2022-02-28 00:00 | o2_saturation | 99 | % | + + + +---------+ | 2022-02-28 00:00 | respiration_rate | 12 | /min | + + + +---------+ | 2022-02-28 00:00 | respiration_rate | 16 | /min | + + + +---------+ | 2022-02-28 00:00 | temperature_metric | 36.83 | C | | | | | | + + + +---------+ | 2022-02-28 00:00 | temperature_metric | 37.22 | C | | | | | | + + + +---------+ | 2022-02-28 00:00 | | 98.3 | F | | | temperature_standar | | | | | d | | | + + + +---------+ | 2022-02-28 00:00 | | 99 | F | | | temperature_standar | | | | | d | | | + + + +---------+ | 2022-02-28 00:00 | weight_metric | 106.59 | kg | + + + +---------+ | 2022-02-28 00:00 | weight_standard | 234.99 | lb | + + + +---------+ | 2022-02-28 00:00 | weight_standard | 235 | lb | + + + +---------+ | 2022-03-14 00:00 | BMI | 37.9 | kg/m2 | + + + +---------+ | 2022-03-14 00:00 | BP_diastolic | 00 | mmHg | + + + +---------+ | 2022-03-14 00:00 | BP_systolic | 000 | mmHg | + + + +---------+ | 2022-03-14 00:00 | heart_rate | 81 | /min | + + + +---------+ | 2022-03-14 00:00 | height_metric | 167.64 | cm | + + + +---------+ | 2022-03-14 00:00 | height_standard | 66 | in | + + + +---------+ | 2022-03-14 00:00 | o2_saturation | 100 | % | + + + +---------+ | 2022-03-14 00:00 | respiration_rate | 16 | /min | + + + +---------+ | 2022-03-14 00:00 | temperature_metric | 36.56 | C | | | | | | + + + +---------+ | 2022-03-14 00:00 | | 97.8 | F | | | temperature_standar | | | | | d | | | + + + +---------+ | 2022-03-14 00:00 | weight_metric | 106.59 | kg | + + + +---------+ | 2022-03-14 00:00 | weight_standard | 234.99 | lb | + + + +---------+ | 2022-03-14 00:00 | weight_standard | 235 | lb | + + + +---------+ | 2022-03-17 00:00 | BMI | 37.9 | kg/m2 | + + + +---------+ | 2022-03-17 00:00 | BP_diastolic | 80 | mmHg | + + + +---------+ | 2022-03-17 00:00 | BP_diastolic | 88 | mmHg | + + + +---------+ | 2022-03-17 00:00 | BP_systolic | 124 | mmHg | + + + +---------+ | 2022-03-17 00:00 | BP_systolic | 148 | mmHg | + + + +---------+ | 2022-03-17 00:00 | heart_rate | 72 | /min | + + + +---------+ | 2022-03-17 00:00 | heart_rate | 75 | /min | + + + +---------+ | 2022-03-17 00:00 | height_metric | 167.64 | cm | + + + +---------+ | 2022-03-17 00:00 | height_standard | 66 | in | + + + +---------+ | 2022-03-17 00:00 | o2_saturation | 100 | % | + + + +---------+ | 2022-03-17 00:00 | o2_saturation | 98 | % | + + + +---------+ | 2022-03-17 00:00 | respiration_rate | 15 | /min | + + + +---------+ | 2022-03-17 00:00 | respiration_rate | 28 | /min | + + + +---------+ | 2022-03-17 00:00 | temperature_metric | 36.56 | C | | | | | | + + + +---------+ | 2022-03-17 00:00 | temperature_metric | 36.61 | C | | | | | | + + + +---------+ | 2022-03-17 00:00 | | 97.8 | F | | | temperature_standar | | | | | d | | | + + + +---------+ | 2022-03-17 00:00 | | 97.9 | F | | | temperature_standar | | | | | d | | | + + + +---------+ | 2022-03-17 00:00 | weight_metric | 106.59 | kg | + + + +---------+ | 2022-03-17 00:00 | weight_standard | 234.99 | lb | + + + +---------+ | 2022-03-17 00:00 | weight_standard | 235 | lb | + + + +---------+ | 2022-03-25 00:00 | BMI | 37.9 | kg/m2 | + + + +---------+ | 2022-03-25 00:00 | BP_diastolic | 70 | mmHg | + + + +---------+ | 2022-03-25 00:00 | BP_systolic | 139 | mmHg | + + + +---------+ | 2022-03-25 00:00 | heart_rate | 75 | /min | + + + +---------+ | 2022-03-25 00:00 | height_metric | 167.64 | cm | + + + +---------+ | 2022-03-25 00:00 | height_standard | 66 | in | + + + +---------+ | 2022-03-25 00:00 | o2_saturation | 99 | % | + + + +---------+ | 2022-03-25 00:00 | respiration_rate | 16 | /min | + + + +---------+ | 2022-03-25 00:00 | temperature_metric | 36.61 | C | | | | | | + + + +---------+ | 2022-03-25 00:00 | | 97.9 | F | | | temperature_standar | | | | | d | | | + + + +---------+ | 2022-03-25 00:00 | weight_metric | 106.59 | kg | + + + +---------+ | 2022-03-25 00:00 | weight_standard | 234.99 | lb | + + + +---------+ | 2022-03-25 00:00 | weight_standard | 235 | lb | + + + +---------+ | 2022-03-26 00:00 | BMI | 37.9 | kg/m2 | + + + +---------+ | 2022-03-26 00:00 | BP_diastolic | 72 | mmHg | + + + +---------+ | 2022-03-26 00:00 | BP_systolic | 121 | mmHg | + + + +---------+ | 2022-03-26 00:00 | heart_rate | 73 | /min | + + + +---------+ | 2022-03-26 00:00 | height_metric | 167.64 | cm | + + + +---------+ | 2022-03-26 00:00 | height_standard | 66 | in | + + + +---------+ | 2022-03-26 00:00 | o2_saturation | 100 | % | + + + +---------+ | 2022-03-26 00:00 | respiration_rate | 20 | /min | + + + +---------+ | 2022-03-26 00:00 | temperature_metric | 36.94 | C | | | | | | + + + +---------+ | 2022-03-26 00:00 | | 98.5 | F | | | temperature_standar | | | | | d | | | + + + +---------+ | 2022-03-26 00:00 | weight_metric | 106.59 | kg | + + + +---------+ | 2022-03-26 00:00 | weight_standard | 234.99 | lb | + + + +---------+ | 2022-03-26 00:00 | weight_standard | 235 | lb | + + + +---------+ | 2022-04-04 00:00 | BMI | 37.9 | kg/m2 | + + + +---------+ | 2022-04-04 00:00 | BP_diastolic | 65 | mmHg | + + + +---------+ | 2022-04-04 00:00 | BP_diastolic | 66 | mmHg | + + + +---------+ | 2022-04-04 00:00 | BP_systolic | 117 | mmHg | + + + +---------+ | 2022-04-04 00:00 | BP_systolic | 128 | mmHg | + + + +---------+ | 2022-04-04 00:00 | heart_rate | 70 | /min | + + + +---------+ | 2022-04-04 00:00 | heart_rate | 73 | /min | + + + +---------+ | 2022-04-04 00:00 | height_metric | 167.64 | cm | + + + +---------+ | 2022-04-04 00:00 | height_standard | 66 | in | + + + +---------+ | 2022-04-04 00:00 | o2_saturation | 100 | % | + + + +---------+ | 2022-04-04 00:00 | o2_saturation | 99 | % | + + + +---------+ | 2022-04-04 00:00 | respiration_rate | 15 | /min | + + + +---------+ | 2022-04-04 00:00 | respiration_rate | 18 | /min | + + + +---------+ | 2022-04-04 00:00 | temperature_metric | 36.72 | C | | | | | | + + + +---------+ | 2022-04-04 00:00 | temperature_metric | 36.78 | C | | | | | | + + + +---------+ | 2022-04-04 00:00 | | 98.1 | F | | | temperature_standar | | | | | d | | | + + + +---------+ | 2022-04-04 00:00 | | 98.2 | F | | | temperature_standar | | | | | d | | | + + + +---------+ | 2022-04-04 00:00 | weight_metric | 106.59 | kg | + + + +---------+ | 2022-04-04 00:00 | weight_standard | 234.99 | lb | + + + +---------+ | 2022-04-04 00:00 | weight_standard | 235 | lb | + + + +---------+ | 2022-04-06 00:00 | BMI | 38.7 | kg/m2 | + + + +---------+ | 2022-04-06 00:00 | BP_diastolic | 81 | mmHg | + + + +---------+ | 2022-04-06 00:00 | BP_systolic | 153 | mmHg | + + + +---------+ | 2022-04-06 00:00 | heart_rate | 73 | /min | + + + +---------+ | 2022-04-06 00:00 | height_metric | 167.64 | cm | + + + +---------+ | 2022-04-06 00:00 | height_standard | 66 | in | + + + +---------+ | 2022-04-06 00:00 | o2_saturation | 97 | % | + + + +---------+ | 2022-04-06 00:00 | respiration_rate | 12 | /min | + + + +---------+ | 2022-04-06 00:00 | temperature_metric | 36.78 | C | | | | | | + + + +---------+ | 2022-04-06 00:00 | | 98.2 | F | | | temperature_standar | | | | | d | | | + + + +---------+ | 2022-04-06 00:00 | weight_metric | 108.86 | kg | + + + +---------+ | 2022-04-06 00:00 | weight_standard | 240 | lb | + + + +---------+ | 2022-04-08 00:00 | BMI | 38.7 | kg/m2 | + + + +---------+ | 2022-04-08 00:00 | BP_diastolic | 82 | mmHg | + + + +---------+ | 2022-04-08 00:00 | BP_systolic | 152 | mmHg | + + + +---------+ | 2022-04-08 00:00 | heart_rate | 75 | /min | + + + +---------+ | 2022-04-08 00:00 | height_metric | 167.64 | cm | + + + +---------+ | 2022-04-08 00:00 | height_standard | 66 | in | + + + +---------+ | 2022-04-08 00:00 | o2_saturation | 100 | % | + + + +---------+ | 2022-04-08 00:00 | respiration_rate | 13 | /min | + + + +---------+ | 2022-04-08 00:00 | temperature_metric | 36.39 | C | | | | | | + + + +---------+ | 2022-04-08 00:00 | | 97.5 | F | | | temperature_standar | | | | | d | | | + + + +---------+ | 2022-04-08 00:00 | weight_metric | 108.86 | kg | + + + +---------+ | 2022-04-08 00:00 | weight_standard | 240 | lb | + + + +---------+ | 2022-04-13 00:00 | BMI | 38.7 | kg/m2 | + + + +---------+ | 2022-04-13 00:00 | BP_diastolic | 92 | mmHg | + + + +---------+ | 2022-04-13 00:00 | BP_systolic | 159 | mmHg | + + + +---------+ | 2022-04-13 00:00 | heart_rate | 71 | /min | + + + +---------+ | 2022-04-13 00:00 | height_metric | 167.64 | cm | + + + +---------+ | 2022-04-13 00:00 | height_standard | 66 | in | + + + +---------+ | 2022-04-13 00:00 | o2_saturation | 98 | % | + + + +---------+ | 2022-04-13 00:00 | respiration_rate | 16 | /min | + + + +---------+ | 2022-04-13 00:00 | temperature_metric | 36.72 | C | | | | | | + + + +---------+ | 2022-04-13 00:00 | | 98.1 | F | | | temperature_standar | | | | | d | | | + + + +---------+ | 2022-04-13 00:00 | weight_metric | 108.86 | kg | + + + +---------+ | 2022-04-13 00:00 | weight_standard | 240 | lb | + + + +---------+ | 2022-04-19 00:00 | BMI | 38.7 | kg/m2 | + + + +---------+ | 2022-04-19 00:00 | BP_diastolic | 85 | mmHg | + + + +---------+ | 2022-04-19 00:00 | BP_systolic | 155 | mmHg | + + + +---------+ | 2022-04-19 00:00 | heart_rate | 80 | /min | + + + +---------+ | 2022-04-19 00:00 | height_metric | 167.64 | cm | + + + +---------+ | 2022-04-19 00:00 | height_standard | 66 | in | + + + +---------+ | 2022-04-19 00:00 | o2_saturation | 98 | % | + + + +---------+ | 2022-04-19 00:00 | respiration_rate | 18 | /min | + + + +---------+ | 2022-04-19 00:00 | temperature_metric | 36.89 | C | | | | | | + + + +---------+ | 2022-04-19 00:00 | | 98.4 | F | | | temperature_standar | | | | | d | | | + + + +---------+ | 2022-04-19 00:00 | weight_metric | 108.86 | kg | + + + +---------+ | 2022-04-19 00:00 | weight_standard | 240 | lb | + + + +---------+"
--- OUTSIDE RECORDS SUMMARY | ~2023-02-04 | XMS | Continuity of Care Document ---
Demographics + + + | Address | [address] | | | [place] [address] | + + + | Preferred Language | Unknown | + + + | Marital Status | Legally | + + + | Jehovah'S Witness Affiliation | Unknown | + + + | Race | White | + + + | Ethnic Group | Not or | + + + Author + + + | Author | [facility] | + + + | Organization | [facility] | + + + | Address | [address] | | | [place] [address] | + + + | Phone | | + + + Care Team Providers + + + + | Care Receiving Team Member Name | Role | Phone | + [...] | (no severity) | | | | [facility] | | | | | [facility] [...] 2022-01-03 00:00 | No vaccine administered | [facility] | + + + + | 2022-01-22 00:00 | No vaccine administered | [facility] | + + + + | 2022-01-24 00:00 | No vaccine administered | [facility] | + + + + | 2022-02-01 00:00 | No vaccine administered | [facility] | + + + + | 2022-02-28 00:00 | No vaccine administered | [facility] | + + + + | 2022-03-14 00:00 | No vaccine administered | [facility] | + + + + | 2022-03-17 00:00 | No vaccine administered | [facility] | + + + + | 2022-03-25 00:00 | No vaccine administered | [facility] | + + + + | 2022-03-26 00:00 | No vaccine administered | [facility] | + + + + | 2022-04-04 00:00 | No vaccine administered | [facility] | + + + + | 2022-04-06 00:00 | No vaccine administered | [facility] | + + + + | 2022-04-08 00:00 | No vaccine administered | [facility] | + + + + | 2022-04-13 00:00 | No vaccine administered | [facility] | + + + + | 2022-04-19 00:00 | No vaccine administered | [facility] | + + + + Medications + + + + | date | description | facility | + + + + | 2022-03-17 00:00 | ONDANSETRON | [facility] | + + + + | 2022-03-17 00:00 | ONDANSETRON | [facility] | + + + + | 2022-03-17 00:00 | ONDANSETRON | [facility] | + + + + | 2022-03-17 00:00 | ONDANSETRON | [facility] | + + + + | 2022-03-17 00:00 | ONDANSETRON | [facility] | + + + + | 2022-03-17 00:00 | ondansetron 4 MG | [facility] | | | Disintegrating Oral Tablet | | + + + + | 2022-01-05 00:00 | MUPIROCIN | [facility] | + + + + | 2022-01-26 00:00 | MUPIROCIN | [facility] | + + + + | 2022-01-29 00:00 | MUPIROCIN | [facility] | + + + + | 2022-02-08 00:00 | MUPIROCIN | [facility] | + + + + | 2022-02-28 00:00 | MUPIROCIN | [facility] | + + + + | 2022-02-28 00:00 | MUPIROCIN | [facility] | + + + + | 2022-03-14 00:00 | MUPIROCIN | [facility] | + + + + | 2022-03-17 00:00 | MUPIROCIN | [facility] | + + + + | 2022-03-25 00:00 | MUPIROCIN | [facility] | + + + + | 2022-03-26 00:00 | MUPIROCIN | [facility] | + + + + | 2022-04-04 00:00 | MUPIROCIN | [facility] | + + + + | 2022-04-06 00:00 | MUPIROCIN | [facility] | + + + + | 2022-04-08 00:00 | MUPIROCIN | [facility] | + + + + | 2022-04-13 00:00 | MUPIROCIN | [facility] | + + + + | 2022-04-19 00:00 | MUPIROCIN | [facility] | + + + + | 2022-01-03 00:00 | mupirocin 0.02 MG/MG | [facility] | | | Topical Ointment | | + + + + | 2022-01-22 00:00 | mupirocin 0.02 MG/MG | [facility] | | | Topical Ointment | | + + + + | 2022-01-24 00:00 | mupirocin 0.02 MG/MG | [facility] | | | Topical Ointment | | + + + + | 2022-02-01 00:00 | mupirocin 0.02 MG/MG | [facility] | | | Topical Ointment | | + + + + | 2022-02-28 00:00 | mupirocin 0.02 MG/MG | [facility] | | | Topical Ointment | | + + + + | 2022-03-14 00:00 | mupirocin 0.02 MG/MG | [facility] | | | Topical Ointment | | + + + + | 2022-03-17 00:00 | mupirocin 0.02 MG/MG | [facility] | | | Topical Ointment | | + + + + | 2022-03-25 00:00 | mupirocin 0.02 MG/MG | [facility] | | | Topical Ointment | | + + + + | 2022-03-26 00:00 | mupirocin 0.02 MG/MG | [facility] | | | Topical Ointment | | + + + + | 2022-04-04 00:00 | mupirocin 0.02 MG/MG | [facility] | | | Topical Ointment | | + + + + | 2022-04-06 00:00 | mupirocin 0.02 MG/MG | [facility] | | | Topical Ointment | | + + + + | 2022-04-08 00:00 | mupirocin 0.02 MG/MG | [facility] | | | Topical Ointment | | + + + + | 2022-04-13 00:00 | mupirocin 0.02 MG/MG | [facility] | | | Topical Ointment | | + + + + | 2022-04-19 00:00 | mupirocin 0.02 MG/MG | [facility] | | | Topical Ointment | | + + + + | 2020-02-22 00:00 | PHENAZOPYRIDINE HCL | [facility] | + + + + | 2020-02-22 00:00 | PHENAZOPYRIDINE HCL | [facility] | + + + + | 2020-02-22 00:00 | PHENAZOPYRIDINE HCL | [facility] | + + + + | 2020-02-22 00:00 | PHENAZOPYRIDINE HCL | [facility] | + + + + | 2020-02-22 00:00 | PHENAZOPYRIDINE HCL | [facility] | + + + + | 2020-02-22 00:00 | PHENAZOPYRIDINE HCL | [facility] | + + + + | 2020-02-22 00:00 | PHENAZOPYRIDINE HCL | [facility] | + + + + | 2020-02-22 00:00 | PHENAZOPYRIDINE HCL | [facility] | + + + + | 2020-02-22 00:00 | PHENAZOPYRIDINE HCL | [facility] | + + + + | 2020-02-22 00:00 | phenazopyridine | [facility] | | | hydrochloride 100 MG Oral | | | | Tablet [Pyridium] | | + + + + | 2022-01-05 00:00 | TICAGRELOR | [facility] | + + + + | 2022-01-26 00:00 | TICAGRELOR | [facility] | + + + + | 2022-01-29 00:00 | TICAGRELOR | [facility] | + + + + | 2022-02-08 00:00 | TICAGRELOR | [facility] | + + + + | 2022-02-28 00:00 | TICAGRELOR | [facility] | + + + + | 2022-02-28 00:00 | TICAGRELOR | [facility] | + + + + | 2022-03-14 00:00 | TICAGRELOR | [facility] | + + + + | 2022-03-17 00:00 | TICAGRELOR | [facility] | + + + + | 2022-03-25 00:00 | TICAGRELOR | [facility] | + + + + | 2022-03-26 00:00 | TICAGRELOR | [facility] | + + + + | 2022-04-04 00:00 | TICAGRELOR | [facility] | + + + + | 2022-04-06 00:00 | TICAGRELOR | [facility] | + + + + | 2022-04-08 00:00 | TICAGRELOR | [facility] | + + + + | 2022-04-13 00:00 | TICAGRELOR | [facility] | + + + + | 2022-04-19 00:00 | TICAGRELOR | [facility] | + + + + | 2022-01-03 00:00 | ticagrelor 90 MG Oral | [facility] | | | Tablet [Brilinta] | | + + + + | 2022-01-22 00:00 | ticagrelor 90 MG Oral | [facility] | | | Tablet [Brilinta] | | + + + + | 2022-01-24 00:00 | ticagrelor 90 MG Oral | [facility] | | | Tablet [Brilinta] | | + + + + | 2022-02-01 00:00 | ticagrelor 90 MG Oral | [facility] | | | Tablet [Brilinta] | | + + + + | 2022-02-28 00:00 | ticagrelor 90 MG Oral | [facility] | | | Tablet [Brilinta] | | + + + + | 2022-03-14 00:00 | ticagrelor 90 MG Oral | [facility] | | | Tablet [Brilinta] | | + + + + | 2022-03-17 00:00 | ticagrelor 90 MG Oral | [facility] | | | Tablet [Brilinta] | | + + + + | 2022-03-25 00:00 | ticagrelor 90 MG Oral | [facility] | | | Tablet [Brilinta] | | + + + + | 2022-03-26 00:00 | ticagrelor 90 MG Oral | [facility] | | | Tablet [Brilinta] | | + + + + | 2022-04-04 00:00 | ticagrelor 90 MG Oral | [facility] | | | Tablet [Brilinta] | | + + + + | 2022-04-06 00:00 | ticagrelor 90 MG Oral | [facility] | | | Tablet [Brilinta] | | + + + + | 2022-04-08 00:00 | ticagrelor 90 MG Oral | [facility] | | | Tablet [Brilinta] | | + + + + | 2022-04-13 00:00 | ticagrelor 90 MG Oral | [facility] | | | Tablet [Brilinta] | | + + + + | 2022-04-19 00:00 | ticagrelor 90 MG Oral | [facility] | | | Tablet [Brilinta] | | + + + + | 2014-11-22 00:00 | BECLOMETHASONE | [facility] | | | DIPROPIONATE | | + + + + | 2014-11-22 00:00 | BECLOMETHASONE | [facility] | | | DIPROPIONATE | | + + + + | 2014-11-22 00:00 | BECLOMETHASONE | [facility] | | | DIPROPIONATE | | + + + + | 2014-11-22 00:00 | BECLOMETHASONE | [facility] | | | DIPROPIONATE | | + + + + | 2014-11-22 00:00 | BECLOMETHASONE | [facility] | | | DIPROPIONATE | | + + + + | 2014-11-22 00:00 | BECLOMETHASONE | [facility] | | | DIPROPIONATE | | + + + + | 2014-11-22 00:00 | BECLOMETHASONE | [facility] | | | DIPROPIONATE | | + + + + | 2014-11-22 00:00 | BECLOMETHASONE | [facility] | | | DIPROPIONATE | | + + + + | 2014-11-22 00:00 | BECLOMETHASONE | [facility] | | | DIPROPIONATE | | + + + + | 2014-11-22 00:00 | beclomethasone | [facility] | | | dipropionate 0.04 MG/ACTUAT | | | | Metered Dose Inha | | + + + + | 2022-01-26 00:00 | NITROFURANTOIN | [facility] | | | MONOHYD/M-CRYST | | + + + + | 2022-01-29 00:00 | NITROFURANTOIN | [facility] | | | MONOHYD/M-CRYST | | + + + + | 2022-02-08 00:00 | NITROFURANTOIN | [facility] | | | MONOHYD/M-CRYST | | + + + + | 2022-01-24 00:00 | nitrofurantoin, | [facility] | | | macrocrystals 25 MG / | | | | nitrofurantoin, monohy | | + + + + | 2022-02-01 00:00 | nitrofurantoin, | [facility] | | | macrocrystals 25 MG / | | | | nitrofurantoin, monohy | | + + + + | 2018-10-18 00:00 | DOXYCYCLINE HYCLATE | [facility] | + + + + | 2018-10-18 00:00 | DOXYCYCLINE HYCLATE | [facility] | + + + + | 2018-10-18 00:00 | DOXYCYCLINE HYCLATE | [facility] | + + + + | 2018-10-18 00:00 | DOXYCYCLINE HYCLATE | [facility] | + + + + | 2018-10-18 00:00 | DOXYCYCLINE HYCLATE | [facility] | + + + + | 2018-10-18 00:00 | DOXYCYCLINE HYCLATE | [facility] | + + + + | 2018-10-18 00:00 | DOXYCYCLINE HYCLATE | [facility] | + + + + | 2018-10-18 00:00 | DOXYCYCLINE HYCLATE | [facility] | + + + + | 2018-10-18 00:00 | DOXYCYCLINE HYCLATE | [facility] | + + + + | 2019-04-05 00:00 | DOXYCYCLINE HYCLATE | [facility] | + + + + | 2019-04-05 00:00 | DOXYCYCLINE HYCLATE | [facility] | + + + + | 2019-04-05 00:00 | DOXYCYCLINE HYCLATE | [facility] | + + + + | 2019-04-05 00:00 | DOXYCYCLINE HYCLATE | [facility] | + + + + | 2019-04-05 00:00 | DOXYCYCLINE HYCLATE | [facility] | + + + + | 2019-04-05 00:00 | DOXYCYCLINE HYCLATE | [facility] | + + + + | 2019-04-05 00:00 | DOXYCYCLINE HYCLATE | [facility] | + + + + | 2019-04-05 00:00 | DOXYCYCLINE HYCLATE | [facility] | + + + + | 2019-04-05 00:00 | DOXYCYCLINE HYCLATE | [facility] | + + + + | 2020-09-16 00:00 | DOXYCYCLINE HYCLATE | [facility] | + + + + | 2020-09-16 00:00 | DOXYCYCLINE HYCLATE | [facility] | + + + + | 2020-09-16 00:00 | DOXYCYCLINE HYCLATE | [facility] | + + + + | 2020-09-16 00:00 | DOXYCYCLINE HYCLATE | [facility] | + + + + | 2020-09-16 00:00 | DOXYCYCLINE HYCLATE | [facility] | + + + + | 2020-09-16 00:00 | DOXYCYCLINE HYCLATE | [facility] | + + + + | 2020-09-16 00:00 | DOXYCYCLINE HYCLATE | [facility] | + + + + | 2020-09-16 00:00 | DOXYCYCLINE HYCLATE | [facility] | + + + + | 2020-09-16 00:00 | DOXYCYCLINE HYCLATE | [facility] | + + + + | 2018-10-18 00:00 | doxycycline hyclate 100 MG | [facility] | | | Oral Capsule | | + + + + | 2019-04-05 00:00 | doxycycline hyclate 100 MG | [facility] | | | Oral Capsule | | + + + + | 2020-09-16 00:00 | doxycycline hyclate 100 MG | [facility] | | | Oral Capsule | | + + + + | 2022-01-05 00:00 | DOXYCYCLINE MONOHYDRATE | [facility] | + + + + | 2022-01-03 00:00 | doxycycline monohydrate | [facility] | | | 100 MG Oral Capsule | | + + + + | 2022-01-22 00:00 | doxycycline monohydrate | [facility] | | | 100 MG Oral Capsule | | + + + + | 2022-01-03 00:00 | 3 ML insulin aspart, human | [facility] | | | 100 UNT/ML Cartridge | | | | [NovoLog] | | + + + + | 2022-01-22 00:00 | 3 ML insulin aspart, human | [facility] | | | 100 UNT/ML Cartridge | | | | [NovoLog] | | + + + + | 2022-01-24 00:00 | 3 ML insulin aspart, human | [facility] | | | 100 UNT/ML Cartridge | | | | [NovoLog] | | + + + + | 2022-02-01 00:00 | 3 ML insulin aspart, human | [facility] | | | 100 UNT/ML Cartridge | | | | [NovoLog] | | + + + + | 2022-02-28 00:00 | 3 ML insulin aspart, human | [facility] | | | 100 UNT/ML Cartridge | | | | [NovoLog] | | + + + + | 2022-03-14 00:00 | 3 ML insulin aspart, human | [facility] | | | 100 UNT/ML Cartridge | | | | [NovoLog] | | + + + + | 2022-03-17 00:00 | 3 ML insulin aspart, human | [facility] | | | 100 UNT/ML Cartridge | | | | [NovoLog] | | + + + + | 2022-03-25 00:00 | 3 ML insulin aspart, human | [facility] | | | 100 UNT/ML Cartridge | | | | [NovoLog] | | + + + + | 2022-03-26 00:00 | 3 ML insulin aspart, human | [facility] | | | 100 UNT/ML Cartridge | | | | [NovoLog] | | + + + + | 2022-04-04 00:00 | 3 ML insulin aspart, human | [facility] | | | 100 UNT/ML Cartridge | | | | [NovoLog] | | + + + + | 2022-04-06 00:00 | 3 ML insulin aspart, human | [facility] | | | 100 UNT/ML Cartridge | | | | [NovoLog] | | + + + + | 2022-04-08 00:00 | 3 ML insulin aspart, human | [facility] | | | 100 UNT/ML Cartridge | | | | [NovoLog] | | + + + + | 2022-04-13 00:00 | 3 ML insulin aspart, human | [facility] | | | 100 UNT/ML Cartridge | | | | [NovoLog] | | + + + + | 2022-04-19 00:00 | 3 ML insulin aspart, human | [facility] | | | 100 UNT/ML Cartridge | | | | [NovoLog] | | + + + + | 2022-01-05 00:00 | INSULIN ASPART | [facility] | + + + + | 2022-01-26 00:00 | INSULIN ASPART | [facility] | + + + + | 2022-01-29 00:00 | INSULIN ASPART | [facility] | + + + + | 2022-02-08 00:00 | INSULIN ASPART | [facility] | + + + + | 2022-02-28 00:00 | INSULIN ASPART | [facility] | + + + + | 2022-02-28 00:00 | INSULIN ASPART | [facility] | + + + + | 2022-03-14 00:00 | INSULIN ASPART | [facility] | + + + + | 2022-03-17 00:00 | INSULIN ASPART | [facility] | + + + + | 2022-03-25 00:00 | INSULIN ASPART | [facility] | + + + + | 2022-03-26 00:00 | INSULIN ASPART | [facility] | + + + + 2022-04-04 00:00 | INSULIN ASPART | [facility] | + + + + | 2022-04-06 00:00 | INSULIN ASPART | [facility] | + + + + | 2022-04-08 00:00 | INSULIN ASPART | [facility] | + + + + | 2022-04-13 00:00 | INSULIN ASPART | [facility] | + + + + | 2022-04-19 00:00 | INSULIN ASPART | [facility] | + + + + | 2022-01-03 00:00 | 3 ML insulin aspart, human | [facility] | | | 100 UNT/ML Pen Injector | | | | [NovoLog] | | + + + + | 2022-01-22 00:00 | 3 ML insulin aspart, human | [facility] | | | 100 UNT/ML Pen Injector | | | | [NovoLog] | | + + + + | 2022-01-24 00:00 | 3 ML insulin aspart, human | [facility] | | | 100 UNT/ML Pen Injector | | | | [NovoLog] | | + + + + | 2022-02-01 00:00 | 3 ML insulin aspart, human | [facility] | | | 100 UNT/ML Pen Injector | | | | [NovoLog] | | + + + + | 2022-02-28 00:00 | 3 ML insulin aspart, human | [facility] | | | 100 UNT/ML Pen Injector | | | | [NovoLog] | | + + + + | 2022-03-14 00:00 | 3 ML insulin aspart, human | [facility] | | | 100 UNT/ML Pen Injector | | | | [NovoLog] | | + + + + | 2022-03-17 00:00 | 3 ML insulin aspart, human | [facility] | | | 100 UNT/ML Pen Injector | | | | [NovoLog] | | + + + + | 2022-03-25 00:00 | 3 ML insulin aspart, human | [facility] | | | 100 UNT/ML Pen Injector | | | | [NovoLog] | | + + + + | 2022-03-26 00:00 | 3 ML insulin aspart, human | [facility] | | | 100 UNT/ML Pen Injector | | | | [NovoLog] | | + + + + | 2022-04-04 00:00 | 3 ML insulin aspart, human | [facility] | | | 100 UNT/ML Pen Injector | | | | [NovoLog] | | + + + + | 2022-04-06 00:00 | 3 ML insulin aspart, human | [facility] | | | 100 UNT/ML Pen Injector | | | | [NovoLog] | | + + + + | 2022-04-08 00:00 | 3 ML insulin aspart, human | [facility] | | | 100 UNT/ML Pen Injector | | | | [NovoLog] | | + + + + | 2022-04-13 00:00 | 3 ML insulin aspart, human | [facility] | | | 100 UNT/ML Pen Injector | | | | [NovoLog] | | + + + + | 2022-04-19 00:00 | 3 ML insulin aspart, human | [facility] | | | 100 UNT/ML Pen Injector | | | | [NovoLog] | | + + + + | 2022-01-05 00:00 | INSULIN ASPART | [facility] | + + + + | 2022-01-26 00:00 | INSULIN ASPART | [facility] | + + + + | 2022-01-29 00:00 | INSULIN ASPART | [facility] | + + + + | 2022-02-08 00:00 | INSULIN ASPART | [facility] | + + + + | 2022-02-28 00:00 | INSULIN ASPART | [facility] | + + + + | 2022-02-28 00:00 | INSULIN ASPART | [facility] | + + + + | 2022-03-14 00:00 | INSULIN ASPART | [facility] | + + + + | 2022-03-17 00:00 | INSULIN ASPART | [facility] | + + + + | 2022-03-25 00:00 | INSULIN ASPART | [facility] | + + + + | 2022-03-26 00:00 | INSULIN ASPART | [facility] | + + + + | 2022-04-04 00:00 | INSULIN ASPART | [facility] | + + + + | 2022-04-06 00:00 | INSULIN ASPART | [facility] | + + + + | 2022-04-08 00:00 | INSULIN ASPART | [facility] | + + + + | 2022-04-13 00:00 | INSULIN ASPART | [facility] | + + + + | 2022-04-19 00:00 | INSULIN ASPART | [facility] | + + + + | 2021-10-26 00:00 | CEPHALEXIN | [facility] | + + + + | 2021-10-26 00:00 | CEPHALEXIN | [facility] | + + + + 2021-10-26 00:00 | CEPHALEXIN | [facility] | + + + + | 2021-10-26 00:00 | CEPHALEXIN | [facility] | + + + + | 2021-10-26 00:00 | CEPHALEXIN | [facility] | + + + + | 2021-10-26 00:00 | CEPHALEXIN | [facility] | + + + + | 2021-10-26 00:00 | CEPHALEXIN | [facility] | + + + + | 2021-10-26 00:00 | CEPHALEXIN | [facility] | + + + + | 2021-10-26 00:00 | CEPHALEXIN | [facility] | + + + + | 2022-02-01 00:00 | CEPHALEXIN | [facility] | + + + + | 2021-10-26 00:00 | cephalexin 500 MG Oral | [facility] | | | Tablet | | + + + + | 2022-02-01 00:00 | cephalexin 500 MG Oral | [facility] | | | Tablet | | + + + + | 2013-12-03 00:00 | DICLOXACILLIN SODIUM | [facility] | + + + + | 2013-12-03 00:00 | DICLOXACILLIN SODIUM | [facility] | + + + + | 2013-12-03 00:00 | DICLOXACILLIN SODIUM | [facility] | + + + + | 2013-12-03 00:00 | DICLOXACILLIN SODIUM | [facility] | + + + + | 2013-12-03 00:00 | DICLOXACILLIN SODIUM | [facility] | + + + + | 2013-12-03 00:00 | DICLOXACILLIN SODIUM | [facility] | + + + + | 2013-12-03 00:00 | DICLOXACILLIN SODIUM | [facility] | + + + + | 2013-12-03 00:00 | DICLOXACILLIN SODIUM | [facility] | + + + + | 2013-12-03 00:00 | DICLOXACILLIN SODIUM | [facility] | + + + + | 2013-12-03 00:00 | dicloxacillin 500 MG Oral | [facility] | | | Capsule | | + + + + | 2022-02-28 00:00 | NITROGLYCERIN | [facility] | + + + + | 2022-02-28 00:00 | NITROGLYCERIN | [facility] | + + + + | 2022-03-14 00:00 | NITROGLYCERIN | [facility] | + + + + | 2022-03-17 00:00 | NITROGLYCERIN | [facility] | + + + + | 2022-03-25 00:00 | NITROGLYCERIN | [facility] | + + + + | 2022-03-26 00:00 | NITROGLYCERIN | [facility] | + + + + | 2022-04-04 00:00 | NITROGLYCERIN | [facility] | + + + + | 2022-04-06 00:00 | NITROGLYCERIN | [facility] | + + + + | 2022-04-08 00:00 | NITROGLYCERIN | [facility] | + + + + | 2022-04-13 00:00 | NITROGLYCERIN | [facility] | + + + + | 2022-04-19 00:00 | NITROGLYCERIN | [facility] | + + + + | 2022-02-28 00:00 | nitroglycerin 0.4 MG | [facility] | | | Sublingual Tablet | | + + + + | 2022-03-14 00:00 | nitroglycerin 0.4 MG | [facility] | | | Sublingual Tablet | | + + + + | 2022-03-17 00:00 | nitroglycerin 0.4 MG | [facility] | | | Sublingual Tablet | | + + + + | 2022-03-25 00:00 | nitroglycerin 0.4 MG | [facility] | | | Sublingual Tablet | | + + + + | 2022-03-26 00:00 | nitroglycerin 0.4 MG | [facility] | | | Sublingual Tablet | | + + + + | 2022-04-04 00:00 | nitroglycerin 0.4 MG | [facility] | | | Sublingual Tablet | | + + + + | 2022-04-06 00:00 | nitroglycerin 0.4 MG | [facility] | | | Sublingual Tablet | | + + + + | 2022-04-08 00:00 | nitroglycerin 0.4 MG | [facility] | | | Sublingual Tablet | | + + + + | 2022-04-13 00:00 | nitroglycerin 0.4 MG | [facility] | | | Sublingual Tablet | | + + + + | 2022-04-19 00:00 | nitroglycerin 0.4 MG | [facility] | | | Sublingual Tablet | | + + + + | 2022-01-22 00:00 | FUROSEMIDE | [facility] | + + + + | 2022-01-22 00:00 | FUROSEMIDE | [facility] | + + + + | 2022-01-22 00:00 | FUROSEMIDE | [facility] | + + + + | 2022-01-22 00:00 | FUROSEMIDE | [facility] | + + + + | 2022-01-22 00:00 | FUROSEMIDE | [facility] | + + + + | 2022-01-22 00:00 | FUROSEMIDE | [facility] | + + + + | 2022-01-22 00:00 | FUROSEMIDE | [facility] | + + + + | 2022-01-22 00:00 | FUROSEMIDE | [facility] | + + + + | 2022-01-22 00:00 | FUROSEMIDE | [facility] | + + + + | 2022-03-26 00:00 | FUROSEMIDE | [facility] | + + + + | 2022-01-22 00:00 | furosemide 20 MG Oral | [facility] | | | Tablet [Lasix] | | + + + + | 2022-03-26 00:00 | furosemide 20 MG Oral | [facility] | | | Tablet [Lasix] | | + + + + | 2018-10-06 00:00 | NEOMYCIN/POLYMYXIN B | [facility] | | | SULF/HC | | + + + + | 2018-10-06 00:00 | NEOMYCIN/POLYMYXIN B | [facility] | | | SULF/HC | | + + + + | 2018-10-06 00:00 | NEOMYCIN/POLYMYXIN B | [facility] | | | SULF/HC | | + + + + | 2018-10-06 00:00 | NEOMYCIN/POLYMYXIN B | [facility] | | | SULF/HC | | + + + + | 2018-10-06 00:00 | NEOMYCIN/POLYMYXIN B | [facility] | | | SULF/HC | | + + + + | 2018-10-06 00:00 | NEOMYCIN/POLYMYXIN B | [facility] | | | SULF/HC | | + + + + | 2018-10-06 00:00 | NEOMYCIN/POLYMYXIN B | [facility] | | | SULF/HC | | + + + + | 2018-10-06 00:00 | NEOMYCIN/POLYMYXIN B | [facility] | | | SULF/HC | | + + + + | 2018-10-06 00:00 | NEOMYCIN/POLYMYXIN B | [facility] | | | SULF/HC | | + + + + | 2018-10-06 00:00 | hydrocortisone 10 MG/ML / | [facility] | | | neomycin 3.5 MG/ML / | | | | polymyxin B 1 | | + + + + | 2014-11-22 00:00 | FLUCONAZOLE | [facility] | + + + + | 2014-11-22 00:00 | FLUCONAZOLE | [facility] | + + + + | 2014-11-22 00:00 | FLUCONAZOLE | [facility] | + + + + | 2014-11-22 00:00 | FLUCONAZOLE | [facility] | + + + + | 2014-11-22 00:00 | FLUCONAZOLE | [facility] | + + + + | 2014-11-22 00:00 | FLUCONAZOLE | [facility] | + + + + | 2014-11-22 00:00 | FLUCONAZOLE | [facility] | + + + + | 2014-11-22 00:00 | FLUCONAZOLE | [facility] | + + + + | 2014-11-22 00:00 | FLUCONAZOLE | [facility] | + + + + | 2014-11-22 00:00 | fluconazole 150 MG Oral | [facility] | | | Tablet [Diflucan] | | + + + + | 2022-01-05 00:00 | NIFEdipine | [facility] | + + + + | 2022-01-26 00:00 | NIFEdipine | [facility] | + + + + | 2022-01-29 00:00 | NIFEdipine | [facility] | + + + + | 2022-02-08 00:00 | NIFEdipine | [facility] | + + + + | 2022-02-28 00:00 | NIFEdipine | [facility] | + + + + | 2022-02-28 00:00 | NIFEdipine | [facility] | + + + + | 2022-03-14 00:00 | NIFEdipine | [facility] | + + + + | 2022-03-17 00:00 | NIFEdipine | [facility] | + + + + | 2022-03-25 00:00 | NIFEdipine | [facility] | + + + + | 2022-03-26 00:00 | NIFEdipine | [facility] | + + + + | 2022-04-04 00:00 | NIFEdipine | [facility] | + + + + | 2022-04-06 00:00 | NIFEdipine | [facility] | + + + + | 2022-04-08 00:00 | NIFEdipine | [facility] | + + + + | 2022-04-13 00:00 | NIFEdipine | [facility] | + + + + | 2022-04-19 00:00 | NIFEdipine | [facility] | + + + + | 2022-01-03 00:00 | Osmotic 24 HR nifedipine | [facility] | | | 30 MG Extended Release Oral | | | | Tablet | | + + + + | 2022-01-22 00:00 | Osmotic 24 HR nifedipine | [facility] | | | 30 MG Extended Release Oral | | | | Tablet | | + + + + | 2022-01-24 00:00 | Osmotic 24 HR nifedipine | [facility] | | | 30 MG Extended Release Oral | | | | Tablet | | + + + + | 2022-02-01 00:00 | Osmotic 24 HR nifedipine | [facility] | | | 30 MG Extended Release Oral | | | | Tablet | | + + + + | 2022-02-28 00:00 | Osmotic 24 HR nifedipine | [facility] | | | 30 MG Extended Release Oral | | | | Tablet | | + + + + | 2022-03-14 00:00 | Osmotic 24 HR nifedipine | [facility] | | | 30 MG Extended Release Oral | | | | Tablet | | + + + + | 2022-03-17 00:00 | Osmotic 24 HR nifedipine | [facility] | | | 30 MG Extended Release Oral | | | | Tablet | | + + + + | 2022-03-25 00:00 | Osmotic 24 HR nifedipine | [facility] | | | 30 MG Extended Release Oral | | | | Tablet | | + + + + | 2022-03-26 00:00 | Osmotic 24 HR nifedipine | [facility] | | | 30 MG Extended Release Oral | | | | Tablet | | + + + + | 2022-04-04 00:00 | Osmotic 24 HR nifedipine | [facility] | | | 30 MG Extended Release Oral | | | | Tablet | | + + + + | 2022-04-06 00:00 | Osmotic 24 HR nifedipine | [facility] | | | 30 MG Extended Release Oral | | | | Tablet | | + + + + | 2022-04-08 00:00 | Osmotic 24 HR nifedipine | [facility] | | | 30 MG Extended Release Oral | | | | Tablet | | + + + + | 2022-04-13 00:00 | Osmotic 24 HR nifedipine | [facility] | | | 30 MG Extended Release Oral | | | | Tablet | | + + + + | 2022-04-19 00:00 | Osmotic 24 HR nifedipine | [facility] | | | 30 MG Extended Release Oral | | | | Tablet | | + + + + | 2022-01-05 00:00 | NIFEdipine | [facility] | + + + + | 2022-01-26 00:00 | NIFEdipine | [facility] | + + + + | 2022-01-29 00:00 | NIFEdipine | [facility] | + + + + | 2022-02-08 00:00 | NIFEdipine | [facility] | + + + + | 2022-02-28 00:00 | NIFEdipine | [facility] | + + + + | 2022-02-28 00:00 | NIFEdipine | [facility] | + + + + | 2022-03-14 00:00 | NIFEdipine | [facility] | + + + + | 2022-03-17 00:00 | NIFEdipine | [facility] | + + + + | 2022-03-25 00:00 | NIFEdipine | [facility] | + + + + | 2022-03-26 00:00 | NIFEdipine | [facility] | + + + + | 2022-04-04 00:00 | NIFEdipine | [facility] | + + + + | 2022-04-06 00:00 | NIFEdipine | [facility] | + + + + | 2022-04-08 00:00 | NIFEdipine | [facility] | + + + + | 2022-04-13 00:00 | NIFEdipine | [facility] | + + + + | 2022-04-19 00:00 | NIFEdipine | [facility] | + + + + | 2022-01-03 00:00 | Osmotic 24 HR nifedipine | [facility] | | | 60 MG Extended Release Oral | | | | Tablet | | + + + + | 2022-01-22 00:00 | Osmotic 24 HR nifedipine | [facility] | | | 60 MG Extended Release Oral | | | | Tablet | | + + + + | 2022-01-24 00:00 | Osmotic 24 HR nifedipine | [facility] | | | 60 MG Extended Release Oral | | | | Tablet | | + + + + | 2022-02-01 00:00 | Osmotic 24 HR nifedipine | [facility] | | | 60 MG Extended Release Oral | | | | Tablet | | + + + + | 2022-02-28 00:00 | Osmotic 24 HR nifedipine | [facility] | | | 60 MG Extended Release Oral | | | | Tablet | | + + + + | 2022-03-14 00:00 | Osmotic 24 HR nifedipine | [facility] | | | 60 MG Extended Release Oral | | | | Tablet | | + + + + | 2022-03-17 00:00 | Osmotic 24 HR nifedipine | [facility] | | | 60 MG Extended Release Oral | | | | Tablet | | + + + + | 2022-03-25 00:00 | Osmotic 24 HR nifedipine | [facility] | | | 60 MG Extended Release Oral | | | | Tablet | | + + + + | 2022-03-26 00:00 | Osmotic 24 HR nifedipine | [facility] | | | 60 MG Extended Release Oral | | | | Tablet | | + + + + | 2022-04-04 00:00 | Osmotic 24 HR nifedipine | [facility] | | | 60 MG Extended Release Oral | | | | Tablet | | + + + + | 2022-04-06 00:00 | Osmotic 24 HR nifedipine | [facility] | | | 60 MG Extended Release Oral | | | | Tablet | | + + + + | 2022-04-08 00:00 | Osmotic 24 HR nifedipine | [facility] | | | 60 MG Extended Release Oral | | | | Tablet | | + + + + | 2022-04-13 00:00 | Osmotic 24 HR nifedipine | [facility] | | | 60 MG Extended Release Oral | | | | Tablet | | + + + + | 2022-04-19 00:00 | Osmotic 24 HR nifedipine | [facility] | | | 60 MG Extended Release Oral | | | | Tablet | | + + + + | 2016-06-17 00:00 | BENZONATATE | [facility] | + + + + | 2016-06-17 00:00 | BENZONATATE | [facility] | + + + + | 2016-06-17 00:00 | BENZONATATE | [facility] | + + + + | 2016-06-17 00:00 | BENZONATATE | [facility] | + + + + | 2016-06-17 00:00 | BENZONATATE | [facility] | + + + + | 2016-06-17 00:00 | BENZONATATE | [facility] | + + + + | 2016-06-17 00:00 | BENZONATATE | [facility] | + + + + | 2016-06-17 00:00 | BENZONATATE | [facility] | + + + + | 2016-06-17 00:00 | BENZONATATE | [facility] | + + + + | 2016-06-17 00:00 | benzonatate 100 MG Oral | [facility] | | | Capsule [Mei Perldeny] | | + + + + | 2019-09-24 00:00 | CEPHALEXIN | [facility] | + + + + | 2019-09-24 00:00 | CEPHALEXIN | [facility] | + + + + | 2019-09-24 00:00 | CEPHALEXIN | [facility] | + + + + | 2019-09-24 00:00 | CEPHALEXIN | [facility] | + + + + 2019-09-24 00:00 | CEPHALEXIN | [facility] | + + + + | 2019-09-24 00:00 | CEPHALEXIN | [facility] | + + + + | 2019-09-24 00:00 | CEPHALEXIN | [facility] | + + + + | 2019-09-24 00:00 | CEPHALEXIN | [facility] | + + + + | 2019-09-24 00:00 | CEPHALEXIN | [facility] | + + + + 2020-05-24 00:00 | CEPHALEXIN | [facility] | + + + + 2020-05-24 00:00 | CEPHALEXIN | [facility] | + + + + | 2020-05-24 00:00 | CEPHALEXIN | [facility] | + + + + | 2020-05-24 00:00 | CEPHALEXIN | [facility] | + + + + | 2020-05-24 00:00 | CEPHALEXIN | [facility] | + + + + 2020-05-24 00:00 | CEPHALEXIN | [facility] | + + + + 2020-05-24 00:00 | CEPHALEXIN | [facility] | + + + + | 2020-05-24 00:00 | CEPHALEXIN | [facility] | + + + + | 2020-05-24 00:00 | CEPHALEXIN | [facility] | + + + + | 2019-09-24 00:00 | cephalexin 500 MG Oral | [facility] | | | Capsule [Keflex] | | + + + + | 2020-05-24 00:00 | cephalexin 500 MG Oral | [facility] | | | Capsule [Keflex] | | + + + + | 2020-11-01 00:00 | AZITHROMYCIN | [facility] | + + + + | 2020-11-01 00:00 | AZITHROMYCIN | [facility] | + + + + | 2020-11-01 00:00 | AZITHROMYCIN | [facility] | + + + + | 2020-11-01 00:00 | AZITHROMYCIN | [facility] | + + + + | 2020-11-01 00:00 | AZITHROMYCIN | [facility] | + + + + | 2020-11-01 00:00 | AZITHROMYCIN | [facility] | + + + + | 2020-11-01 00:00 | AZITHROMYCIN | [facility] | + + + + | 2020-11-01 00:00 | AZITHROMYCIN | [facility] | + + + + | 2020-11-01 00:00 | AZITHROMYCIN | [facility] | + + + + | 2020-11-01 00:00 | azithromycin 250 MG Oral | [facility] | | | Tablet [Zithromax] | | + + + + | 2022-01-03 00:00 | 3 ML insulin glargine-yfgn | [facility] | | | 100 UNT/ML Pen Injector | | + + + + | 2022-01-22 00:00 | 3 ML insulin glargine-yfgn | [facility] | | | 100 UNT/ML Pen Injector | | + + + + | 2022-01-24 00:00 | 3 ML insulin glargine-yfgn | [facility] | | | 100 UNT/ML Pen Injector | | + + + + | 2022-02-01 00:00 | 3 ML insulin glargine-yfgn | [facility] | | | 100 UNT/ML Pen Injector | | + + + + | 2022-02-28 00:00 | 3 ML insulin glargine-yfgn | [facility] | | | 100 UNT/ML Pen Injector | | + + + + | 2022-03-14 00:00 | 3 ML insulin glargine-yfgn | [facility] | | | 100 UNT/ML Pen Injector | | + + + + | 2022-03-17 00:00 | 3 ML insulin glargine-yfgn | [facility] | | | 100 UNT/ML Pen Injector | | + + + + | 2022-03-25 00:00 | 3 ML insulin glargine-yfgn | [facility] | | | 100 UNT/ML Pen Injector | | + + + + | 2022-03-26 00:00 | 3 ML insulin glargine-yfgn | [facility] | | | 100 UNT/ML Pen Injector | | + + + + | 2022-04-04 00:00 | 3 ML insulin glargine-yfgn | [facility] | | | 100 UNT/ML Pen Injector | | + + + + | 2022-04-06 00:00 | 3 ML insulin glargine-yfgn | [facility] | | | 100 UNT/ML Pen Injector | | + + + + | 2022-04-08 00:00 | 3 ML insulin glargine-yfgn | [facility] | | | 100 UNT/ML Pen Injector | | + + + + | 2022-04-13 00:00 | 3 ML insulin glargine-yfgn | [facility] | | | 100 UNT/ML Pen Injector | | + + + + | 2022-04-19 00:00 | 3 ML insulin glargine-yfgn | [facility] | | | 100 UNT/ML Pen Injector | | + + + + | 2022-01-05 00:00 | Insulin Glargine-Yfgn | [facility] | + + + + | 2022-01-26 00:00 | Insulin Glargine-Yfgn | [facility] | + + + + | 2022-01-29 00:00 | Insulin Glargine-Yfgn | [facility] | + + + + | 2022-02-08 00:00 | Insulin Glargine-Yfgn | [facility] | + + + + | 2022-02-28 00:00 | Insulin Glargine-Yfgn | [facility] | + + + + | 2022-02-28 00:00 | Insulin Glargine-Yfgn | [facility] | + + + + | 2022-03-14 00:00 | Insulin Glargine-Yfgn | [facility] | + + + + | 2022-03-17 00:00 | Insulin Glargine-Yfgn | [facility] | + + + + | 2022-03-25 00:00 | Insulin Glargine-Yfgn | [facility] | + + + + | 2022-03-26 00:00 | Insulin Glargine-Yfgn | [facility] | + + + + | 2022-04-04 00:00 | Insulin Glargine-Yfgn | [facility] | + + + + | 2022-04-06 00:00 | Insulin Glargine-Yfgn | [facility] | + + + + | 2022-04-08 00:00 | Insulin Glargine-Yfgn | [facility] | + + + + | 2022-04-13 00:00 | Insulin Glargine-Yfgn | [facility] | + + + + | 2022-04-19 00:00 | Insulin Glargine-Yfgn | [facility] | + + + + | 2019-04-05 00:00 | INSULIN GLARGINE | [facility] | + + + + | 2019-04-05 00:00 | INSULIN GLARGINE | [facility] | + + + + | 2019-04-05 00:00 | INSULIN GLARGINE | [facility] | + + + + | 2019-04-05 00:00 | INSULIN GLARGINE | [facility] | + + + + | 2019-04-05 00:00 | INSULIN GLARGINE | [facility] | + + + + | 2019-04-05 00:00 | INSULIN GLARGINE | [facility] | + + + + | 2019-04-05 00:00 | INSULIN GLARGINE | [facility] | + + + + | 2019-04-05 00:00 | INSULIN GLARGINE | [facility] | + + + + | 2019-04-05 00:00 | INSULIN GLARGINE | [facility] | + + + + | 2019-04-05 00:00 | insulin glargine 100 | [facility] | | | UNT/ML Injectable Solution | | | | [Lantus] | | + + + + | 2022-01-05 00:00 | GABAPENTIN | [facility] | + + + + | 2022-01-26 00:00 | GABAPENTIN | [facility] | + + + + | 2022-01-29 00:00 | GABAPENTIN | [facility] | + + + + | 2022-02-08 00:00 | GABAPENTIN | [facility] | + + + + | 2022-02-28 00:00 | GABAPENTIN | [facility] | + + + + | 2022-02-28 00:00 | GABAPENTIN | [facility] | + + + + | 2022-03-14 00:00 | GABAPENTIN | [facility] | + + + + | 2022-03-17 00:00 | GABAPENTIN | [facility] | + + + + | 2022-03-25 00:00 | GABAPENTIN | [facility] | + + + + | 2022-03-26 00:00 | GABAPENTIN | [facility] | + + + + | 2022-04-04 00:00 | GABAPENTIN | [facility] | + + + + | 2022-04-06 00:00 | GABAPENTIN | [facility] | + + + + | 2022-04-08 00:00 | GABAPENTIN | [facility] | + + + + | 2022-04-13 00:00 | GABAPENTIN | [facility] | + + + + | 2022-04-19 00:00 | GABAPENTIN | [facility] | + + + + | 2022-01-03 00:00 | gabapentin 300 MG Oral | [facility] | | | Capsule | | + + + + | 2022-01-22 00:00 | gabapentin 300 MG Oral | [facility] | | | Capsule | | + + + + | 2022-01-24 00:00 | gabapentin 300 MG Oral | [facility] | | | Capsule | | + + + + | 2022-02-01 00:00 | gabapentin 300 MG Oral | [facility] | | | Capsule | | + + + + | 2022-02-28 00:00 | gabapentin 300 MG Oral | [facility] | | | Capsule | | + + + + | 2022-03-14 00:00 | gabapentin 300 MG Oral | [facility] | | | Capsule | | + + + + | 2022-03-17 00:00 | gabapentin 300 MG Oral | [facility] | | | Capsule | | + + + + | 2022-03-25 00:00 | gabapentin 300 MG Oral | [facility] | | | Capsule | | + + + + | 2022-03-26 00:00 | gabapentin 300 MG Oral | [facility] | | | Capsule | | + + + + | 2022-04-04 00:00 | gabapentin 300 MG Oral | [facility] | | | Capsule | | + + + + | 2022-04-06 00:00 | gabapentin 300 MG Oral | [facility] | | | Capsule | | + + + + | 2022-04-08 00:00 | gabapentin 300 MG Oral | [facility] | | | Capsule | | + + + + | 2022-04-13 00:00 | gabapentin 300 MG Oral | [facility] | | | Capsule | | + + + + | 2022-04-19 00:00 | gabapentin 300 MG Oral | [facility] | | | Capsule | | + + + + | 2022-01-05 00:00 | NPH, HUMAN INSULIN | [facility] | | | ISOPHANE | | + + + + | 2022-01-26 00:00 | NPH, HUMAN INSULIN | [facility] | | | ISOPHANE | | + + + + | 2022-01-29 00:00 | NPH, HUMAN INSULIN | [facility] | | | ISOPHANE | | + + + + | 2022-02-08 00:00 | NPH, HUMAN INSULIN | [facility] | | | ISOPHANE | | + + + + | 2022-02-28 00:00 | NPH, HUMAN INSULIN | [facility] | | | ISOPHANE | | + + + + | 2022-02-28 00:00 | NPH, HUMAN INSULIN | [facility] | | | ISOPHANE | | + + + + | 2022-03-14 00:00 | NPH, HUMAN INSULIN | [facility] | | | ISOPHANE | | + + + + | 2022-03-17 00:00 | NPH, HUMAN INSULIN | [facility] | | | ISOPHANE | | + + + + | 2022-03-25 00:00 | NPH, HUMAN INSULIN | [facility] | | | ISOPHANE | | + + + + | 2022-03-26 00:00 | NPH, HUMAN INSULIN | [facility] | | | ISOPHANE | | + + + + | 2022-04-04 00:00 | NPH, HUMAN INSULIN | [facility] | | | ISOPHANE | | + + + + | 2022-04-06 00:00 | NPH, HUMAN INSULIN | [facility] | | | ISOPHANE | | + + + + | 2022-04-08 00:00 | NPH, HUMAN INSULIN | [facility] | | | ISOPHANE | | + + + + | 2022-04-13 00:00 | NPH, HUMAN INSULIN | [facility] | | | ISOPHANE | | + + + + | 2022-04-19 00:00 | NPH, HUMAN INSULIN | [facility] | | | ISOPHANE | | + + + + | 2022-01-03 00:00 | insulin isophane, human | [facility] | | | 100 UNT/ML Injectable | | | | Suspension [Hu | | + + + + | 2022-01-22 00:00 | insulin isophane, human | [facility] | | | 100 UNT/ML Injectable | | | | Suspension [Hu | | + + + + | 2022-01-24 00:00 | insulin isophane, human | [facility] | | | 100 UNT/ML Injectable | | | | Suspension [Hu | | + + + + | 2022-02-01 00:00 | insulin isophane, human | [facility] | | | 100 UNT/ML Injectable | | | | Suspension [Hu | | + + + + | 2022-02-28 00:00 | insulin isophane, human | [facility] | | | 100 UNT/ML Injectable | | | | Suspension [Hu | | + + + + | 2022-03-14 00:00 | insulin isophane, human | [facility] | | | 100 UNT/ML Injectable | | | | Suspension [Hu | | + + + + | 2022-03-17 00:00 | insulin isophane, human | [facility] | | | 100 UNT/ML Injectable | | | | Suspension [Hu | | + + + + | 2022-03-25 00:00 | insulin isophane, human | [facility] | | | 100 UNT/ML Injectable | | | | Suspension [Hu | | + + + + | 2022-03-26 00:00 | insulin isophane, human | [facility] | | | 100 UNT/ML Injectable | | | | Suspension [Hu | | + + + + | 2022-04-04 00:00 | insulin isophane, human | [facility] | | | 100 UNT/ML Injectable | | | | Suspension [Hu | | + + + + | 2022-04-06 00:00 | insulin isophane, human | [facility] | | | 100 UNT/ML Injectable | | | | Suspension [Hu | | + + + + | 2022-04-08 00:00 | insulin isophane, human | [facility] | | | 100 UNT/ML Injectable | | | | Suspension [Hu | | + + + + | 2022-04-13 00:00 | insulin isophane, human | [facility] | | | 100 UNT/ML Injectable | | | | Suspension [Hu | | + + + + | 2022-04-19 00:00 | insulin isophane, human | [facility] | | | 100 UNT/ML Injectable | | | | Suspension [Hu | | + + + + | 2019-12-16 00:00 | LISINOPRIL | [facility] | + + + + | 2019-12-16 00:00 | LISINOPRIL | [facility] | + + + + | 2019-12-16 00:00 | LISINOPRIL | [facility] | + + + + | 2019-12-16 00:00 | LISINOPRIL | [facility] | + + + + | 2019-12-16 00:00 | LISINOPRIL | [facility] | + + + + | 2019-12-16 00:00 | LISINOPRIL | [facility] | + + + + | 2019-12-16 00:00 | LISINOPRIL | [facility] | + + + + | 2019-12-16 00:00 | LISINOPRIL | [facility] | + + + + | 2019-12-16 00:00 | LISINOPRIL | [facility] | + + + + | 2019-12-16 00:00 | lisinopril 5 MG Oral | [facility] | | | Tablet | | + + + + | 2020-11-01 00:00 | predniSONE | [facility] | + + + + | 2020-11-01 00:00 | predniSONE | [facility] | + + + + | 2020-11-01 00:00 | predniSONE | [facility] | + + + + | 2020-11-01 00:00 | predniSONE | [facility] | + + + + | 2020-11-01 00:00 | predniSONE | [facility] | + + + + | 2020-11-01 00:00 | predniSONE | [facility] | + + + + | 2020-11-01 00:00 | predniSONE | [facility] | + + + + | 2020-11-01 00:00 | predniSONE | [facility] | + + + + | 2020-11-01 00:00 | predniSONE | [facility] | + + + + | 2020-11-01 00:00 | prednisone 20 MG Oral | [facility] | | | Tablet | | + + + + | 2022-01-05 00:00 | LISINOPRIL | [facility] | + + + + | 2022-01-26 00:00 | LISINOPRIL | [facility] | + + + + | 2022-01-29 00:00 | LISINOPRIL | [facility] | + + + + | 2022-02-08 00:00 | LISINOPRIL | [facility] | + + + + | 2022-02-28 00:00 | LISINOPRIL | [facility] | + + + + | 2022-02-28 00:00 | LISINOPRIL | [facility] | + + + + | 2022-03-14 00:00 | LISINOPRIL | [facility] | + + + + | 2022-03-17 00:00 | LISINOPRIL | [facility] | + + + + | 2022-03-25 00:00 | LISINOPRIL | [facility] | + + + + | 2022-03-26 00:00 | LISINOPRIL | [facility] | + + + + | 2022-04-04 00:00 | LISINOPRIL | [facility] | + + + + | 2022-04-06 00:00 | LISINOPRIL | [facility] | + + + + | 2022-04-08 00:00 | LISINOPRIL | [facility] | + + + + | 2022-04-13 00:00 | LISINOPRIL | [facility] | + + + + | 2022-04-19 00:00 | LISINOPRIL | [facility] | + + + + | 2022-01-03 00:00 | lisinopril 10 MG Oral | [facility] | | | Tablet | | + + + + | 2022-01-22 00:00 | lisinopril 10 MG Oral | [facility] | | | Tablet | | + + + + | 2022-01-24 00:00 | lisinopril 10 MG Oral | [facility] | | | Tablet | | + + + + | 2022-02-01 00:00 | lisinopril 10 MG Oral | [facility] | | | Tablet | | + + + + | 2022-02-28 00:00 | lisinopril 10 MG Oral | [facility] | | | Tablet | | + + + + | 2022-03-14 00:00 | lisinopril 10 MG Oral | [facility] | | | Tablet | | + + + + | 2022-03-17 00:00 | lisinopril 10 MG Oral | [facility] | | | Tablet | | + + + + | 2022-03-25 00:00 | lisinopril 10 MG Oral | [facility] | | | Tablet | | + + + + | 2022-03-26 00:00 | lisinopril 10 MG Oral | [facility] | | | Tablet | | + + + + | 2022-04-04 00:00 | lisinopril 10 MG Oral | [facility] | | | Tablet | | + + + + | 2022-04-06 00:00 | lisinopril 10 MG Oral | [facility] | | | Tablet | | + + + + | 2022-04-08 00:00 | lisinopril 10 MG Oral | [facility] | | | Tablet | | + + + + | 2022-04-13 00:00 | lisinopril 10 MG Oral | [facility] | | | Tablet | | + + + + | 2022-04-19 00:00 | lisinopril 10 MG Oral | [facility] | | | Tablet | | + + + + | 2022-01-05 00:00 | FENOFIBRATE | [facility] | + + + + | 2022-01-26 00:00 | FENOFIBRATE | [facility] | + + + + | 2022-01-29 00:00 | FENOFIBRATE | [facility] | + + + + | 2022-02-08 00:00 | FENOFIBRATE | [facility] | + + + + | 2022-02-28 00:00 | FENOFIBRATE | [facility] | + + + + | 2022-02-28 00:00 | FENOFIBRATE | [facility] | + + + + | 2022-03-14 00:00 | FENOFIBRATE | [facility] | + + + + | 2022-03-17 00:00 | FENOFIBRATE | [facility] | + + + + | 2022-03-25 00:00 | FENOFIBRATE | [facility] | + + + + | 2022-03-26 00:00 | FENOFIBRATE | [facility] | + + + + | 2022-04-04 00:00 | FENOFIBRATE | [facility] | + + + + | 2022-04-06 00:00 | FENOFIBRATE | [facility] | + + + + | 2022-04-08 00:00 | FENOFIBRATE | [facility] | + + + + | 2022-04-13 00:00 | FENOFIBRATE | [facility] | + + + + | 2022-04-19 00:00 | FENOFIBRATE | [facility] | + + + + | 2022-01-03 00:00 | fenofibrate 54 MG Oral | [facility] | | | Tablet | | + + + + | 2022-01-22 00:00 | fenofibrate 54 MG Oral | [facility] | | | Tablet | | + + + + | 2022-01-24 00:00 | fenofibrate 54 MG Oral | [facility] | | | Tablet | | + + + + | 2022-02-01 00:00 | fenofibrate 54 MG Oral | [facility] | | | Tablet | | + + + + | 2022-02-28 00:00 | fenofibrate 54 MG Oral | [facility] | | | Tablet | | + + + + | 2022-03-14 00:00 | fenofibrate 54 MG Oral | [facility] | | | Tablet | | + + + + | 2022-03-17 00:00 | fenofibrate 54 MG Oral | [facility] | | | Tablet | | + + + + | 2022-03-25 00:00 | fenofibrate 54 MG Oral | [facility] | | | Tablet | | + + + + | 2022-03-26 00:00 | fenofibrate 54 MG Oral | [facility] | | | Tablet | | + + + + | 2022-04-04 00:00 | fenofibrate 54 MG Oral | [facility] | | | Tablet | | + + + + | 2022-04-06 00:00 | fenofibrate 54 MG Oral | [facility] | | | Tablet | | + + + + | 2022-04-08 00:00 | fenofibrate 54 MG Oral | [facility] | | | Tablet | | + + + + | 2022-04-13 00:00 | fenofibrate 54 MG Oral | [facility] | | | Tablet | | + + + + | 2022-04-19 00:00 | fenofibrate 54 MG Oral | [facility] | | | Tablet | | + + + + | 2022-01-05 00:00 | INSULIN ASPART | [facility] | + + + + | 2022-01-26 00:00 | INSULIN ASPART | [facility] | + + + + | 2022-01-29 00:00 | INSULIN ASPART | [facility] | + + + + | 2022-02-08 00:00 | INSULIN ASPART | [facility] | + + + + | 2022-02-28 00:00 | INSULIN ASPART | [facility] | + + + + | 2022-02-28 00:00 | INSULIN ASPART | [facility] | + + + + | 2022-03-14 00:00 | INSULIN ASPART | [facility] | + + + + | 2022-03-17 00:00 | INSULIN ASPART | [facility] | + + + + | 2022-03-25 00:00 | INSULIN ASPART | [facility] | + + + + | 2022-03-26 00:00 | INSULIN ASPART | [facility] | + + + + | 2022-04-04 00:00 | INSULIN ASPART | [facility] | + + + + | 2022-04-06 00:00 | INSULIN ASPART | [facility] | + + + + | 2022-04-08 00:00 | INSULIN ASPART | [facility] | + + + + | 2022-04-13 00:00 | INSULIN ASPART | [facility] | + + + + | 2022-04-19 00:00 | INSULIN ASPART | [facility] | + + + + | 2022-01-03 00:00 | insulin aspart, human 100 | [facility] | | | UNT/ML Injectable Solution | | | | [NovoLo | | + + + + | 2022-01-22 00:00 | insulin aspart, human 100 | [facility] | | | UNT/ML Injectable Solution | | | | [NovoLo | | + + + + | 2022-01-24 00:00 | insulin aspart, human 100 | [facility] | | | UNT/ML Injectable Solution | | | | [NovoLo | | + + + + | 2022-02-01 00:00 | insulin aspart, human 100 | [facility] | | | UNT/ML Injectable Solution | | | | [NovoLo | | + + + + | 2022-02-28 00:00 | insulin aspart, human 100 | [facility] | | | UNT/ML Injectable Solution | | | | [NovoLo | | + + + + | 2022-03-14 00:00 | insulin aspart, human 100 | [facility] | | | UNT/ML Injectable Solution | | | | [NovoLo | | + + + + | 2022-03-17 00:00 | insulin aspart, human 100 | [facility] | | | UNT/ML Injectable Solution | | | | [NovoLo | | + + + + | 2022-03-25 00:00 | insulin aspart, human 100 | [facility] | | | UNT/ML Injectable Solution | | | | [NovoLo | | + + + + | 2022-03-26 00:00 | insulin aspart, human 100 | [facility] | | | UNT/ML Injectable Solution | | | | [NovoLo | | + + + + | 2022-04-04 00:00 | insulin aspart, human 100 | [facility] | | | UNT/ML Injectable Solution | | | | [NovoLo | | + + + + | 2022-04-06 00:00 | insulin aspart, human 100 | [facility] | | | UNT/ML Injectable Solution | | | | [NovoLo | | + + + + | 2022-04-08 00:00 | insulin aspart, human 100 | [facility] | | | UNT/ML Injectable Solution | | | | [NovoLo | | + + + + | 2022-04-13 00:00 | insulin aspart, human 100 | [facility] | | | UNT/ML Injectable Solution | | | | [NovoLo | | + + + + | 2022-04-19 00:00 | insulin aspart, human 100 | [facility] | | | UNT/ML Injectable Solution | | | | [NovoLo | | + + + + | 2022-01-22 00:00 | nitrofurantoin, | [facility] | | | macrocrystals 25 MG / | | | | nitrofurantoin, monohy | | + + + + | 2022-01-05 00:00 | ATORVASTATIN CALCIUM | [facility] | + + + + | 2022-01-26 00:00 | ATORVASTATIN CALCIUM | [facility] | + + + + | 2022-01-29 00:00 | ATORVASTATIN CALCIUM | [facility] | + + + + | 2022-02-08 00:00 | ATORVASTATIN CALCIUM | [facility] | + + + + | 2022-02-28 00:00 | ATORVASTATIN CALCIUM | [facility] | + + + + | 2022-02-28 00:00 | ATORVASTATIN CALCIUM | [facility] | + + + + | 2022-03-14 00:00 | ATORVASTATIN CALCIUM | [facility] | + + + + | 2022-03-17 00:00 | ATORVASTATIN CALCIUM | [facility] | + + + + | 2022-03-25 00:00 | ATORVASTATIN CALCIUM | [facility] | + + + + | 2022-03-26 00:00 | ATORVASTATIN CALCIUM | [facility] | + + + + | 2022-04-04 00:00 | ATORVASTATIN CALCIUM | [facility] | + + + + | 2022-04-06 00:00 | ATORVASTATIN CALCIUM | [facility] | + + + + | 2022-04-08 00:00 | ATORVASTATIN CALCIUM | [facility] | + + + + | 2022-04-13 00:00 | ATORVASTATIN CALCIUM | [facility] | + + + + | 2022-04-19 00:00 | ATORVASTATIN CALCIUM | [facility] | + + + + | 2022-01-03 00:00 | atorvastatin 40 MG Oral | [facility] | | | Tablet | | + + + + | 2022-01-22 00:00 | atorvastatin 40 MG Oral | [facility] | | | Tablet | | + + + + | 2022-01-24 00:00 | atorvastatin 40 MG Oral | [facility] | | | Tablet | | + + + + | 2022-02-01 00:00 | atorvastatin 40 MG Oral | [facility] | | | Tablet | | + + + + | 2022-02-28 00:00 | atorvastatin 40 MG Oral | [facility] | | | Tablet | | + + + + | 2022-03-14 00:00 | atorvastatin 40 MG Oral | [facility] | | | Tablet | | + + + + | 2022-03-17 00:00 | atorvastatin 40 MG Oral | [facility] | | | Tablet | | + + + + | 2022-03-25 00:00 | atorvastatin 40 MG Oral | [facility] | | | Tablet | | + + + + | 2022-03-26 00:00 | atorvastatin 40 MG Oral | [facility] | | | Tablet | | + + + + | 2022-04-04 00:00 | atorvastatin 40 MG Oral | [facility] | | | Tablet | | + + + + | 2022-04-06 00:00 | atorvastatin 40 MG Oral | [facility] | | | Tablet | | + + + + | 2022-04-08 00:00 | atorvastatin 40 MG Oral | [facility] | | | Tablet | | + + + + | 2022-04-13 00:00 | atorvastatin 40 MG Oral | [facility] | | | Tablet | | + + + + | 2022-04-19 00:00 | atorvastatin 40 MG Oral | [facility] | | | Tablet | | + + + + | 2022-01-05 00:00 | PYRIDOXINE HCL | [facility] | + + + + | 2022-01-26 00:00 | PYRIDOXINE HCL | [facility] | + + + + | 2022-01-29 00:00 | PYRIDOXINE HCL | [facility] | + + + + | 2022-02-08 00:00 | PYRIDOXINE HCL | [facility] | + + + + | 2022-02-28 00:00 | PYRIDOXINE HCL | [facility] | + + + + | 2022-02-28 00:00 | PYRIDOXINE HCL | [facility] | + + + + | 2022-03-14 00:00 | PYRIDOXINE HCL | [facility] | + + + + | 2022-03-17 00:00 | PYRIDOXINE HCL | [facility] | + + + + | 2022-03-25 00:00 | PYRIDOXINE HCL | [facility] | + + + + | 2022-03-26 00:00 | PYRIDOXINE HCL | [facility] | + + + + | 2022-04-04 00:00 | PYRIDOXINE HCL | [facility] | + + + + | 2022-04-06 00:00 | PYRIDOXINE HCL | [facility] | + + + + | 2022-04-08 00:00 | PYRIDOXINE HCL | [facility] | + + + + | 2022-04-13 00:00 | PYRIDOXINE HCL | [facility] | + + + + | 2022-04-19 00:00 | PYRIDOXINE HCL | [facility] | + + + + | 2022-01-03 00:00 | vitamin B6 50 MG Oral | [facility] | | | Tablet | | + + + + | 2022-01-22 00:00 | vitamin B6 50 MG Oral | [facility] | | | Tablet | | + + + + | 2022-01-24 00:00 | vitamin B6 50 MG Oral | [facility] | | | Tablet | | + + + + | 2022-02-01 00:00 | vitamin B6 50 MG Oral | [facility] | | | Tablet | | + + + + | 2022-02-28 00:00 | vitamin B6 50 MG Oral | [facility] | | | Tablet | | + + + + | 2022-03-14 00:00 | vitamin B6 50 MG Oral | [facility] | | | Tablet | | + + + + | 2022-03-17 00:00 | vitamin B6 50 MG Oral | [facility] | | | Tablet | | + + + + | 2022-03-25 00:00 | vitamin B6 50 MG Oral | [facility] | | | Tablet | | + + + + | 2022-03-26 00:00 | vitamin B6 50 MG Oral | [facility] | | | Tablet | | + + + + | 2022-04-04 00:00 | vitamin B6 50 MG Oral | [facility] | | | Tablet | | + + + + | 2022-04-06 00:00 | vitamin B6 50 MG Oral | [facility] | | | Tablet | | + + + + | 2022-04-08 00:00 | vitamin B6 50 MG Oral | [facility] | | | Tablet | | + + + + | 2022-04-13 00:00 | vitamin B6 50 MG Oral | [facility] | | | Tablet | | + + + + | 2022-04-19 00:00 | vitamin B6 50 MG Oral | [facility] | | | Tablet | | + + + + | 2017-10-04 00:00 | TRAMADOL HCL | [facility] | + + + + | 2017-10-04 00:00 | TRAMADOL HCL | [facility] | + + + + | 2017-10-04 00:00 | TRAMADOL HCL | [facility] | + + + + | 2017-10-04 00:00 | TRAMADOL HCL | [facility] | + + + + | 2017-10-04 00:00 | TRAMADOL HCL | [facility] | + + + + | 2017-10-04 00:00 | TRAMADOL HCL | [facility] | + + + + | 2017-10-04 00:00 | TRAMADOL HCL | [facility] | + + + + | 2017-10-04 00:00 | TRAMADOL HCL | [facility] | + + + + | 2017-10-04 00:00 | TRAMADOL HCL | [facility] | + + + + | 2018-10-18 00:00 | TRAMADOL HCL | [facility] | + + + + | 2018-10-18 00:00 | TRAMADOL HCL | [facility] | + + + + | 2018-10-18 00:00 | TRAMADOL HCL | [facility] | + + + + | 2018-10-18 00:00 | TRAMADOL HCL | [facility] | + + + + | 2018-10-18 00:00 | TRAMADOL HCL | [facility] | + + + + | 2018-10-18 00:00 | TRAMADOL HCL | [facility] | + + + + | 2018-10-18 00:00 | TRAMADOL HCL | [facility] | + + + + | 2018-10-18 00:00 | TRAMADOL HCL | [facility] | + + + + | 2018-10-18 00:00 | TRAMADOL HCL | [facility] | + + + + | 2017-10-04 00:00 | tramadol hydrochloride 50 | [facility] | | | MG Oral Tablet | | + + + + | 2018-10-18 00:00 | tramadol hydrochloride 50 | [facility] | | | MG Oral Tablet | | + + + + | 2022-01-03 00:00 | 3 ML insulin glargine 100 | [facility] | | | UNT/ML Pen Injector | | | | [Lantus] | | + + + + | 2022-01-22 00:00 | 3 ML insulin glargine 100 | [facility] | | | UNT/ML Pen Injector | | | | [Lantus] | | + + + + | 2022-01-24 00:00 | 3 ML insulin glargine 100 | [facility] | | | UNT/ML Pen Injector | | | | [Lantus] | | + + + + | 2022-02-01 00:00 | 3 ML insulin glargine 100 | [facility] | | | UNT/ML Pen Injector | | | | [Lantus] | | + + + + | 2022-02-28 00:00 | 3 ML insulin glargine 100 | [facility] | | | UNT/ML Pen Injector | | | | [Lantus] | | + + + + | 2022-03-14 00:00 | 3 ML insulin glargine 100 | [facility] | | | UNT/ML Pen Injector | | | | [Lantus] | | + + + + | 2022-03-17 00:00 | 3 ML insulin glargine 100 | [facility] | | | UNT/ML Pen Injector | | | | [Lantus] | | + + + + | 2022-03-25 00:00 | 3 ML insulin glargine 100 | [facility] | | | UNT/ML Pen Injector | | | | [Lantus] | | + + + + | 2022-03-26 00:00 | 3 ML insulin glargine 100 | [facility] | | | UNT/ML Pen Injector | | | | [Lantus] | | + + + + | 2022-04-04 00:00 | 3 ML insulin glargine 100 | [facility] | | | UNT/ML Pen Injector | | | | [Lantus] | | + + + + | 2022-04-06 00:00 | 3 ML insulin glargine 100 | [facility] | | | UNT/ML Pen Injector | | | | [Lantus] | | + + + + | 2022-04-08 00:00 | 3 ML insulin glargine 100 | [facility] | | | UNT/ML Pen Injector | | | | [Lantus] | | + + + + | 2022-04-13 00:00 | 3 ML insulin glargine 100 | [facility] | | | UNT/ML Pen Injector | | | | [Lantus] | | + + + + | 2022-04-19 00:00 | 3 ML insulin glargine 100 | [facility] | | | UNT/ML Pen Injector | | | | [Lantus] | | + + + + | 2022-01-05 00:00 | INSULIN | [facility] | | | KRISTOFER HERRON | | + + + + | 2022-01-26 00:00 | INSULIN | [facility] | | | GLARGINE,HUM.REC.ANLOG | | + + + + | 2022-01-29 00:00 | INSULIN | [facility] | | | GLARGINE,HUM.REC.ANLOG | | + + + + | 2022-02-08 00:00 | INSULIN | [facility] | | | GLARGINE,HUM.REC.ANLOG | | + + + + | 2022-02-28 00:00 | INSULIN | [facility] | | | GLARGINE,HUM.REC.ANLOG | | + + + + | 2022-02-28 00:00 | INSULIN | [facility] | | | GLARGINE,HUM.REC.ANLOG | | + + + + | 2022-03-14 00:00 | INSULIN | [facility] | | | GLAVAUGHNE,HUM.REC.ANLOG | | + + + + | 2022-03-17 00:00 | INSULIN | [facility] | | | GLAPRAVEENA,HUM.REC.ANLOG | | + + + + | 2022-03-25 00:00 | INSULIN | [facility] | | | GLAPRAVEENA,HUM.REC.ANLOG | | + + + + | 2022-03-26 00:00 | INSULIN | [facility] | | | GLARGINE,HUM.REC.ANLOG | | + + + + | 2022-04-04 00:00 | INSULIN | [facility] | | | [facility] | | + + + + | 2022-04-06 00:00 | INSULIN | [facility] | | | [facility]vana[facility]CIvanaANLOG | | + + + + | 2022-04-08 00:00 | INSULIN | [facility] | | | HUM. GOPALRECIvanaANLOG | | + + + + | 2022-04-13 00:00 | INSULIN | [facility] | | | GOPALHUMIvanaRECIvanaANLOG | | + + + + | 2022-04-19 00:00 | INSULIN | [facility] | | | KRISTOFER HERRON | | + + + + | 2013-12-03 00:00 | | [facility] | | | SULFAMETHOXAZOLE/TRIMETHOPR | | | | IM DS | | + + + + | 2013-12-03 00:00 | | [facility] | | | SULFAMETHOXAZOLE/TRIMETHOPR | | | | IM DS | | + + + + | 2013-12-03 00:00 | | [facility] | | | SULFAMETHOXAZOLE/TRIMETHOPR | | | | IM DS | | + + + + | 2013-12-03 00:00 | | [facility] | | | SULFAMETHOXAZOLE/TRIMETHOPR | | | | IM DS | | + + + + | 2013-12-03 00:00 | | [facility] | | | SULFAMETHOXAZOLE/TRIMETHOPR | | | | IM DS | | + + + + | 2013-12-03 00:00 | | [facility] | | | SULFAMETHOXAZOLE/TRIMETHOPR | | | | IM DS | | + + + + | 2013-12-03 00:00 | | [facility] | | | SULFAMETHOXAZOLE/TRIMETHOPR | | | | IM DS | | + + + + | 2013-12-03 00:00 | | [facility] | | | SULFAMETHOXAZOLE/TRIMETHOPR | | | | IM DS | | + + + + | 2013-12-03 00:00 | | [facility] | | | SULFAMETHOXAZOLE/TRIMETHOPR | | | | IM DS | | + + + + | 2017-10-04 00:00 | | [facility] | | | SULFAMETHOXAZOLE/TRIMETHOPR | | | | IM DS | | + + + + | 2017-10-04 00:00 | | [facility] | | | SULFAMETHOXAZOLE/TRIMETHOPR | | | | IM DS | | + + + + | 2017-10-04 00:00 | | [facility] | | | SULFAMETHOXAZOLE/TRIMETHOPR | | | | IM DS | | + + + + | 2017-10-04:00 | | [facility] | | | SULFAMETHOXAZOLE/TRIMETHOPR | | | | IM DS | | + + + + | 2017-10-04 00:00 | | [facility] | | | SULFAMETHOXAZOLE/TRIMETHOPR | | | | IM DS | | + + + + | 2017-10-04 00:00 | | [facility] | | | SULFAMETHOXAZOLE/TRIMETHOPR | | | | IM DS | | + + + + | 2017-10-04 00:00 | | [facility] | | | SULFAMETHOXAZOLE/TRIMETHOPR | | | | IM DS | | + + + + | 2017-10-04 00:00 | | [facility] | | | SULFAMETHOXAZOLE/TRIMETHOPR | | | | IM DS | | + + + + | 2017-10-04 00:00 | | [facility] | | | SULFAMETHOXAZOLE/TRIMETHOPR | | | | IM DS | | + + + + | 2020-02-22 00:00 | | [facility] | | | SULFAMETHOXAZOLE/TRIMETHOPR | | | | IM DS | | + + + + | 2020-02-22 00:00 | | [facility] | | | SULFAMETHOXAZOLE/TRIMETHOPR | | | | IM DS | | + + + + | 2020-02-22 00:00 | | [facility] | | | SULFAMETHOXAZOLE/TRIMETHOPR | | | | IM DS | | + + + + | 2020-02-22 00:00 | | [facility] | | | SULFAMETHOXAZOLE/TRIMETHOPR | | | | IM DS | | + + + + | 2020-02-22 00:00 | | [facility] | | | SULFAMETHOXAZOLE/TRIMETHOPR | | | | IM DS | | + + + + | 2020-02-22 00:00 | | [facility] | | | SULFAMETHOXAZOLE/TRIMETHOPR | | | | IM DS | | + + + + | 2020-02-22 00:00 | | [facility] | | | SULFAMETHOXAZOLE/TRIMETHOPR | | | | IM DS | | + + + + | 2020-02-22 00:00 | | [facility] | | | SULFAMETHOXAZOLE/TRIMETHOPR | | | | IM DS | | + + + + | 2020-02-22 00:00 | | [facility] | | | SULFAMETHOXAZOLE/TRIMETHOPR | | | | IM DS | | + + + + | 2013-12-03 00:00 | sulfamethoxazole 800 MG / | [facility] | | | trimethoprim 160 MG Oral | | | | Tablet [B | | + + + + | 2017-10-04 00:00 | sulfamethoxazole 800 MG / | [facility] | | | trimethoprim 160 MG Oral | | | | Tablet [B | | + + + + | 2020-02-22 00:00 | sulfamethoxazole 800 MG / | [facility] | | | trimethoprim 160 MG Oral | | | | Tablet [B | | + + + + | 2022-01-05 00:00 | HYDROCODONE | [facility] | | | BIT/ACETAMINOPHEN | | + + + + | 2022-01-26 00:00 | HYDROCODONE | [facility] | | | BIT/ACETAMINOPHEN | | + + + + | 2022-01-29 00:00 | HYDROCODONE | [facility] | | | BIT/ACETAMINOPHEN | | + + + + | 2022-02-08 00:00 | HYDROCODONE | [facility] | | | BIT/ACETAMINOPHEN | | + + + + | 2022-02-28 00:00 | HYDROCODONE | [facility] | | | BIT/ACETAMINOPHEN | | + + + + | 2022-02-28 00:00 | HYDROCODONE | [facility] | | | BIT/ACETAMINOPHEN | | + + + + | 2022-03-14 00:00 | HYDROCODONE | [facility] | | | BIT/ACETAMINOPHEN | | + + + + | 2022-03-17 00:00 | HYDROCODONE | [facility] | | | BIT/ACETAMINOPHEN | | + + + + | 2022-03-25 00:00 | HYDROCODONE | [facility] | | | BIT/ACETAMINOPHEN | | + + + + | 2022-03-26 00:00 | HY[facility]OCODONE | [facility] | | | BIT/ACETAMINOPHEN | | + + + + | 2022-04-04 00:00 | HYDROCODONE | [facility] | | | BIT/ACETAMINOPHEN | | + + + + | 2022-04-06 00:00 | HYDROCODONE | [facility] | | | BIT/ACETAMINOPHEN | | + + + + | 2022-04-08 00:00 | HYDROCODONE | [facility] | | | BIT/ACETAMINOPHEN | | + + + + | 2022-04-13 00:00 | HYDROCODONE | [facility] | | | BIT/ACETAMINOPHEN | | + + + + | 2022-04-19 00:00 | HYDROCODONE | [facility] | | | BIT/ACETAMINOPHEN | | + + + + | 2022-01-03 00:00 | acetaminophen 325 MG / | [facility] | | | hydrocodone bitartrate 10 | | | | MG Oral Tab | | + + + + | 2022-01-22 00:00 | acetaminophen 325 MG / | [facility] | | | hydrocodone bitartrate 10 | | | | MG Oral Tab | | + + + + | 2022-01-24 00:00 | acetaminophen 325 MG / | [facility] | | | hydrocodone bitartrate 10 | | | | MG Oral Tab | | + + + + | 2022-02-01 00:00 | acetaminophen 325 MG / | [facility] | | | hydrocodone bitartrate 10 | | | | MG Oral Tab | | + + + + | 2022-02-28 00:00 | acetaminophen 325 MG / | [facility] | | | hydrocodone bitartrate 10 | | | | MG Oral Tab | | + + + + | 2022-03-14 00:00 | acetaminophen 325 MG / | [facility] | | | hydrocodone bitartrate 10 | | | | MG Oral Tab | | + + + + | 2022-03-17 00:00 | acetaminophen 325 MG / | [facility] | | | hydrocodone bitartrate 10 | | | | MG Oral Tab | | + + + + | 2022-03-25 00:00 | acetaminophen 325 MG / | [facility] | | | hydrocodone bitartrate 10 | | | | MG Oral Tab | | + + + + | 2022-03-26 00:00 | acetaminophen 325 MG / | [facility] | | | hydrocodone bitartrate 10 | | | | MG Oral Tab | | + + + + | 2022-04-04 00:00 | acetaminophen 325 MG / | [facility] | | | hydrocodone bitartrate 10 | | | | MG Oral Tab | | + + + + | 2022-04-06 00:00 | acetaminophen 325 MG / | [facility] | | | hydrocodone bitartrate 10 | | | | MG Oral Tab | | + + + + | 2022-04-08 00:00 | acetaminophen 325 MG / | [facility] | | | hydrocodone bitartrate 10 | | | | MG Oral Tab | | + + + + | 2022-04-13 00:00 | acetaminophen 325 MG / | [facility] | | | hydrocodone bitartrate 10 | | | | MG Oral Tab | | + + + + | 2022-04-19 00:00 | acetaminophen 325 MG / | [facility] | | | hydrocodone bitartrate 10 | | | | MG Oral Tab | | + + + + | 2021-11-02 00:00 | HYDROCODONE | [facility] | | | BIT/ACETAMINOPHEN | | + + + + | 2021-11-02 00:00 | HYDROCODONE | [facility] | | | BIT/ACETAMINOPHEN | | + + + + | 2021-11-02 00:00 | HYDROCODONE | [facility] | | | BIT/ACETAMINOPHEN | | + + + + | 2021-11-02 00:00 | acetaminophen 325 MG / | [facility] | | | hydrocodone bitartrate 5 MG | | | | Oral Tabl | | + + + + | 2013-12-03 00:00 | HYDROCODONE | [facility] | | | BIT/ACETAMINOPHEN | | + + + + | 2013-12-03 00:00 | HYDROCODONE | [facility] | | | BIT/ACETAMINOPHEN | | + + + + | 2013-12-03 00:00 | HYDROCODONE | [facility] | | | BIT/ACETAMINOPHEN | | + + + + | 2013-12-03 00:00 | HYDROCODONE | [facility] | | | BIT/ACETAMINOPHEN | | + + + + | 2013-12-03 00:00 | HYDROCODONE | [facility] | | | BIT/ACETAMINOPHEN | | + + + + | 2013-12-03 00:00 | HYDROCODONE | [facility] | | | BIT/ACETAMINOPHEN | | + + + + | 2013-12-03 00:00 | HYDROCODONE | [facility] | | | BIT/ACETAMINOPHEN | | + + + + | 2013-12-03 00:00 | HYDROCODONE | [facility] | | | BIT/ACETAMINOPHEN | | + + + + | 2013-12-03 00:00 | HYDROCODONE | [facility] | | | BIT/ACETAMINOPHEN | | + + + + | 2017-11-05 00:00 | HYDROCODONE | [facility] | | | BIT/ACETAMINOPHEN | | + + + + | 2017-11-05 00:00 | HYDROCODONE | [facility] | | | BIT/ACETAMINOPHEN | | + + + + | 2017-11-05 00:00 | HYDROCODONE | [facility] | | | BIT/ACETAMINOPHEN | | + + + + | 2017-11-05 00:00 | HYDROCODONE | [facility] | | | BIT/ACETAMINOPHEN | | + + + + | 2017-11-05 00:00 | HYDROCODONE | [facility] | | | BIT/ACETAMINOPHEN | | + + + + | 2017-11-05 00:00 | HYDROCODONE | [facility] | | | BIT/ACETAMINOPHEN | | + + + + | 2017-11-05 00:00 | HYDROCODONE | [facility] | | | BIT/ACETAMINOPHEN | | + + + + | 2017-11-05 00:00 | HYDROCODONE | [facility] | | | BIT/ACETAMINOPHEN | | + + + + | 2017-11-05 00:00 | HYDROCODONE | [facility] | | | BIT/ACETAMINOPHEN | | + + + + | 2013-12-03 00:00 | acetaminophen 325 MG / | [facility] | | | hydrocodone bitartrate 5 MG | | | | Oral Tabl | | + + + + | 2017-11-05 00:00 | acetaminophen 325 MG / | [facility] | | | hydrocodone bitartrate 5 MG | | | | Oral Tabl | | + + + + | 2022-04-06 00:00 | HYDROCODONE | [facility] | | | BIT/ACETAMINOPHEN | | + + + + | 2022-04-06 00:00 | HYDROCODONE | [facility] | | | BIT/ACETAMINOPHEN | | + + + + | 2022-04-06 00:00 | HYDROCODONE | [facility] | | | BIT/ACETAMINOPHEN | | + + + + | 2022-04-06 00:00 | HYDROCODONE | [facility] | | | BIT/ACETAMINOPHEN | | + + + + | 2022-04-06 00:00 | acetaminophen 325 MG / | [facility] | | | hydrocodone bitartrate 7.5 | | | | MG Oral Ta | | + + + + | 2020-11-01 00:00 | ALBUTEROL SULFATE | [facility] | + + + + | 2020-11-01 00:00 | ALBUTEROL SULFATE | [facility] | + + + + | 2020-11-01 00:00 | ALBUTEROL SULFATE | [facility] | + + + + | 2020-11-01 00:00 | ALBUTEROL SULFATE | [facility] | + + + + | 2020-11-01 00:00 | ALBUTEROL SULFATE | [facility] | + + + + | 2020-11-01 00:00 | ALBUTEROL SULFATE | [facility] | + + + + | 2020-11-01 00:00 | ALBUTEROL SULFATE | [facility] | + + + + | 2020-11-01 00:00 | ALBUTEROL SULFATE | [facility] | + + + + | 2020-11-01 00:00 | ALBUTEROL SULFATE | [facility] | + + + + | 2022-01-05 00:00 | ALBUTEROL SULFATE | [facility] | + + + + | 2022-01-26 00:00 | ALBUTEROL SULFATE | [facility] | + + + + | 2022-01-29 00:00 | ALBUTEROL SULFATE | [facility] | + + + + | 2022-02-08 00:00 | ALBUTEROL SULFATE | [facility] | + + + + | 2022-02-28 00:00 | ALBUTEROL SULFATE | [facility] | + + + + | 2022-02-28 00:00 | ALBUTEROL SULFATE | [facility] | + + + + | 2022-03-14 00:00 | ALBUTEROL SULFATE | [facility] | + + + + | 2022-03-17 00:00 | ALBUTEROL SULFATE | [facility] | + + + + | 2022-03-25 00:00 | ALBUTEROL SULFATE | [facility] | + + + + | 2022-03-26 00:00 | ALBUTEROL SULFATE | [facility] | + + + + | 2022-04-04 00:00 | ALBUTEROL SULFATE | [facility] | + + + + | 2022-04-06 00:00 | ALBUTEROL SULFATE | [facility] | + + + + | 2022-04-08 00:00 | ALBUTEROL SULFATE | [facility] | + + + + | 2022-04-13 00:00 | ALBUTEROL SULFATE | [facility] | + + + + | 2022-04-19 00:00 | ALBUTEROL SULFATE | [facility] | + + + + | 2020-11-01 00:00 | [id number] 200 ACTUAT | [facility] | | | albuterol 0.09 MG/ACTUAT | | | | Metered Dose I | | + + + + | 2022-01-03 00:00 | [id number] 200 ACTUAT | [facility] | | | albuterol 0.09 MG/ACTUAT | | | | Metered Dose I | | + + + + | 2022-01-22 00:00 | [id number] 200 ACTUAT | [facility] | | | albuterol 0.09 MG/ACTUAT | | | | Metered Dose I | | + + + + | 2022-01-24 00:00 | [id number] 200 ACTUAT | [facility] | | | albuterol 0.09 MG/ACTUAT | | | | Metered Dose I | | + + + + | 2022-02-01 00:00 | [id number] 200 ACTUAT | [facility] | | | albuterol 0.09 MG/ACTUAT | | | | Metered Dose I | | + + + + | 2022-02-28 00:00 | [id number] 200 ACTUAT | [facility] | | | albuterol 0.09 MG/ACTUAT | | | | Metered Dose I | | + + + + | 2022-03-14 00:00 | [id number] 200 ACTUAT | [facility] | | | albuterol 0.09 MG/ACTUAT | | | | Metered Dose I | | + + + + | 2022-03-17 00:00 | [id number] 200 ACTUAT | [facility] | | | albuterol 0.09 MG/ACTUAT | | | | Metered Dose I | | + + + + | 2022-03-25 00:00 | [id number] 200 ACTUAT | [facility] | | | albuterol 0.09 MG/ACTUAT | | | | Metered Dose I | | + + + + | 2022-03-26 00:00 | [id number] 200 ACTUAT | [facility] | | | albuterol 0.09 MG/ACTUAT | | | | Metered Dose I | | + + + + | 2022-04-04 00:00 | [id number] 200 ACTUAT | [facility] | | | albuterol 0.09 MG/ACTUAT | | | | Metered Dose I | | + + + + | 2022-04-06 00:00 | [id number] 200 ACTUAT | [facility] | | | albuterol 0.09 MG/ACTUAT | | | | Metered Dose I | | + + + + | 2022-04-08 00:00 | [id number] 200 ACTUAT | [facility] | | | albuterol 0.09 MG/ACTUAT | | | | Metered Dose I | | + + + + | 2022-04-13 00:00 | [id number] 200 ACTUAT | [facility] | | | albuterol 0.09 MG/ACTUAT | | | | Metered Dose I | | + + + + | 2022-04-19 00:00 | [id number] 200 ACTUAT | [facility] | | | albuterol 0.09 MG/ACTUAT | | | | Metered Dose I | | + + + + | 2022-01-05 00:00 | METFORMIN HCL | [facility] | + + + + | 2022-01-26 00:00 | METFORMIN HCL | [facility] | + + + + | 2022-01-29 00:00 | METFORMIN HCL | [facility] | + + + + | 2022-02-08 00:00 | METFORMIN HCL | [facility] | + + + + | 2022-02-28 00:00 | METFORMIN HCL | [facility] | + + + + | 2022-02-28 00:00 | METFORMIN HCL | [facility] | + + + + | 2022-03-14 00:00 | METFORMIN HCL | [facility] | + + + + | 2022-03-17 00:00 | METFORMIN HCL | [facility] | + + + + | 2022-03-25 00:00 | METFORMIN HCL | [facility] | + + + + | 2022-03-26 00:00 | METFORMIN HCL | [facility] | + + + + | 2022-04-04 00:00 | METFORMIN HCL | [facility] | + + + + | 2022-04-06 00:00 | METFORMIN HCL | [facility] | + + + + | 2022-04-08 00:00 | METFORMIN HCL | [facility] | + + + + | 2022-04-13 00:00 | METFORMIN HCL | [facility] | + + + + | 2022-04-19 00:00 | METFORMIN HCL | [facility] | + + + + | 2022-01-03 00:00 | metformin hydrochloride | [facility] | | | 1000 MG Oral Tablet | | + + + + | 2022-01-22 00:00 | metformin hydrochloride | [facility] | | | 1000 MG Oral Tablet | | + + + + | 2022-01-24 00:00 | metformin hydrochloride | [facility] | | | 1000 MG Oral Tablet | | + + + + | 2022-02-01 00:00 | metformin hydrochloride | [facility] | | | 1000 MG Oral Tablet | | + + + + | 2022-02-28 00:00 | metformin hydrochloride | [facility] | | | 1000 MG Oral Tablet | | + + + + | 2022-03-14 00:00 | metformin hydrochloride | [facility] | | | 1000 MG Oral Tablet | | + + + + | 2022-03-17 00:00 | metformin hydrochloride | [facility] | | | 1000 MG Oral Tablet | | + + + + | 2022-03-25 00:00 | metformin hydrochloride | [facility] | | | 1000 MG Oral Tablet | | + + + + | 2022-03-26 00:00 | metformin hydrochloride | [facility] | | | 1000 MG Oral Tablet | | + + + + | 2022-04-04 00:00 | metformin hydrochloride | [facility] | | | 1000 MG Oral Tablet | | + + + + | 2022-04-06 00:00 | metformin hydrochloride | [facility] | | | 1000 MG Oral Tablet | | + + + + | 2022-04-08 00:00 | metformin hydrochloride | [facility] | | | 1000 MG Oral Tablet | | + + + + | 2022-04-13 00:00 | metformin hydrochloride | [facility] | | | 1000 MG Oral Tablet | | + + + + | 2022-04-19 00:00 | metformin hydrochloride | [facility] | | | 1000 MG Oral Tablet | | + + + + | 2022-01-05 00:00 | METOPROLOL TARTRATE | [facility] | + + + + | 2022-01-26 00:00 | METOPROLOL TARTRATE | [facility] | + + + + | 2022-01-29 00:00 | METOPROLOL TARTRATE | [facility] | + + + + | 2022-02-08 00:00 | METOPROLOL TARTRATE | [facility] | + + + + | 2022-02-28 00:00 | METOPROLOL TARTRATE | [facility] | + + + + | 2022-02-28 00:00 | METOPROLOL TARTRATE | [facility] | + + + + | 2022-03-14 00:00 | METOPROLOL TARTRATE | [facility] | + + + + | 2022-03-17 00:00 | METOPROLOL TARTRATE | [facility] | + + + + | 2022-03-25 00:00 | METOPROLOL TARTRATE | [facility] | + + + + | 2022-03-26 00:00 | METOPROLOL TARTRATE | [facility] | + + + + | 2022-04-04 00:00 | METOPROLOL TARTRATE | [facility] | + + + + | 2022-04-06 00:00 | METOPROLOL TARTRATE | [facility] | + + + + | 2022-04-08 00:00 | METOPROLOL TARTRATE | [facility] | + + + + | 2022-04-13 00:00 | METOPROLOL TARTRATE | [facility] | + + + + | 2022-04-19 00:00 | METOPROLOL TARTRATE | [facility] | + + + + | 2022-01-03 00:00 | metoprolol tartrate 25 MG | [facility] | | | Oral Tablet | | + + + + | 2022-01-22 00:00 | metoprolol tartrate 25 MG | [facility] | | | Oral Tablet | | + + + + | 2022-01-24 00:00 | metoprolol tartrate 25 MG | [facility] | | | Oral Tablet | | + + + + | 2022-02-01 00:00 | metoprolol tartrate 25 MG | [facility] | | | Oral Tablet | | + + + + | 2022-02-28 00:00 | metoprolol tartrate 25 MG | [facility] | | | Oral Tablet | | + + + + | 2022-03-14 00:00 | metoprolol tartrate 25 MG | [facility] | | | Oral Tablet | | + + + + | 2022-03-17 00:00 | metoprolol tartrate 25 MG | [facility] | | | Oral Tablet | | + + + + | 2022-03-25 00:00 | metoprolol tartrate 25 MG | [facility] | | | Oral Tablet | | + + + + | 2022-03-26 00:00 | metoprolol tartrate 25 MG | [facility] | | | Oral Tablet | | + + + + | 2022-04-04 00:00 | metoprolol tartrate 25 MG | [facility] | | | Oral Tablet | | + + + + | 2022-04-06 00:00 | metoprolol tartrate 25 MG | [facility] | | | Oral Tablet | | + + + + | 2022-04-08 00:00 | metoprolol tartrate 25 MG | [facility] | | | Oral Tablet | | + + + + | 2022-04-13 00:00 | metoprolol tartrate 25 MG | [facility] | | | Oral Tablet | | + + + + | 2022-04-19 00:00 | metoprolol tartrate 25 MG | [facility] | | | Oral Tablet | | + + + + | 2016-06-17 00:00 | ONDANSETRON | [facility] | + + + + | 2016-06-17 00:00 | ONDANSETRON | [facility] | + + + + | 2016-06-17 00:00 | ONDANSETRON | [facility] | + + + + | 2016-06-17 00:00 | ONDANSETRON | [facility] | + + + + | 2016-06-17 00:00 | ONDANSETRON | [facility] | + + + + | 2016-06-17 00:00 | ONDANSETRON | [facility] | + + + + | 2016-06-17 00:00 | ONDANSETRON | [facility] | + + + + | 2016-06-17 00:00 | ONDANSETRON | [facility] | + + + + | 2016-06-17 00:00 | ONDANSETRON | [facility] | + + + + | 2016-06-17 00:00 | ondansetron 4 MG | [facility] | | | Disintegrating Oral Tablet | | | | [Zofran] | | + + + + | 2019-12-16 00:00 | | [facility] | | | LOSARTAN/HYDROCHLOROTHIAZID | | | | E | | + + + + | 2019-12-16 00:00 | | [facility] | | | LOSARTAN/HYDROCHLOROTHIAZID | | | | E | | + + + + | 2019-12-16 00:00 | | [facility] | | | LOSARTAN/HYDROCHLOROTHIAZID | | | | E | | + + + + | 2019-12-16 00:00 | | [facility] | | | LOSARTAN/HYDROCHLOROTHIAZID | | | | E | | + + + + | 2019-12-16 00:00 | | [facility] | | | LOSARTAN/HYDROCHLOROTHIAZID | | | | E | | + + + + | 2019-12-16 00:00 | | [facility] | | | LOSARTAN/HYDROCHLOROTHIAZID | | | | E | | + + + + | 2019-12-16 00:00 | | [facility] | | | LOSARTAN/HYDROCHLOROTHIAZID | | | | E | | + + + + | 2019-12-16 00:00 | | [facility] | | | LOSARTAN/HYDROCHLOROTHIAZID | | | | E | | + + + + | 2019-12-16 00:00 | | [facility] | | | LOSARTAN/HYDROCHLOROTHIAZID | | | | E | | + + + + | 2022-01-05 00:00 | | [facility] | | | LOSARTAN/HYDROCHLOROTHIAZID | | | | E | | + + + + | 2022-01-26 00:00 | | [facility] | | | LOSARTAN/HYDROCHLOROTHIAZID | | | | E | | + + + + | 2022-01-29 00:00 | | [facility] | | | LOSARTAN/HYDROCHLOROTHIAZID | | | | E | | + + + + | 2022-02-08 00:00 | | [facility] | | | LOSARTAN/HYDROCHLOROTHIAZID | | | | E | | + + + + | 2022-02-28 00:00 | | [facility] | | | LOSARTAN/HYDROCHLOROTHIAZID | | | | E | | + + + + | 2022-02-28 00:00 | | [facility] | | | LOSARTAN/HYDROCHLOROTHIAZID | | | | E | | + + + + | 2022-03-14 00:00 | | [facility] | | | LOSARTAN/HYDROCHLOROTHIAZID | | | | E | | + + + + | 2022-03-17 00:00 | | [facility] | | | LOSARTAN/HYDROCHLOROTHIAZID | | | | E | | + + + + | 2022-03-25 00:00 | | [facility] | | | LOSARTAN/HYDROCHLOROTHIAZID | | | | E | | + + + + | 2022-03-26 00:00 | | [facility] | | | LOSARTAN/HYDROCHLOROTHIAZID | | | | E | | + + + + | 2022-04-04 00:00 | | [facility] | | | LOSARTAN/HYDROCHLOROTHIAZID | | | | E | | + + + + | 2022-04-06 00:00 | | [facility] | | | LOSARTAN/HYDROCHLOROTHIAZID | | | | E | | + + + + | 2022-04-08 00:00 | | [facility] | | | LOSARTAN/HYDROCHLOROTHIAZID | | | | E | | + + + + | 2022-04-13 00:00 | | [facility] | | | LOSARTAN/HYDROCHLOROTHIAZID | | | | E | | + + + + | 2022-04-19 00:00 | | [facility] | | | LOSARTAN/HYDROCHLOROTHIAZID | | | | E | | + + + + | 2019-12-16 00:00 | hydrochlorothiazide 12.5 | [facility] | | | MG / losartan potassium 50 | | | | MG Oral | | + + + + | 2022-01-03 00:00 | hydrochlorothiazide 12.5 | [facility] | | | MG / losartan potassium 50 | | | | MG Oral | | + + + + | 2022-01-22 00:00 | hydrochlorothiazide 12.5 | [facility] | | | MG / losartan potassium 50 | | | | MG Oral | | + + + + | 2022-01-24 00:00 | hydrochlorothiazide 12.5 | [facility] | | | MG / losartan potassium 50 | | | | MG Oral | | + + + + | 2022-02-01 00:00 | hydrochlorothiazide 12.5 | [facility] | | | MG / losartan potassium 50 | | | | MG Oral | | + + + + | 2022-02-28 00:00 | hydrochlorothiazide 12.5 | [facility] | | | MG / losartan potassium 50 | | | | MG Oral | | + + + + | 2022-03-14 00:00 | hydrochlorothiazide 12.5 | [facility] | | | MG / losartan potassium 50 | | | | MG Oral | | + + + + | 2022-03-17 00:00 | hydrochlorothiazide 12.5 | [facility] | | | MG / losartan potassium 50 | | | | MG Oral | | + + + + | 2022-03-25 00:00 | hydrochlorothiazide 12.5 | [facility] | | | MG / losartan potassium 50 | | | | MG Oral | | + + + + | 2022-03-26 00:00 | hydrochlorothiazide 12.5 | [facility] | | | MG / losartan potassium 50 | | | | MG Oral | | + + + + | 2022-04-04 00:00 | hydrochlorothiazide 12.5 | [facility] | | | MG / losartan potassium 50 | | | | MG Oral | | + + + + | 2022-04-06 00:00 | hydrochlorothiazide 12.5 | [facility] | | | MG / losartan potassium 50 | | | | MG Oral | | + + + + | 2022-04-08 00:00 | hydrochlorothiazide 12.5 | [facility] | | | MG / losartan potassium 50 | | | | MG Oral | | + + + + | 2022-04-13 00:00 | hydrochlorothiazide 12.5 | [facility] | | | MG / losartan potassium 50 | | | | MG Oral | | + + + + | 2022-04-19 00:00 | hydrochlorothiazide 12.5 | [facility] | | | MG / losartan potassium 50 | | | | MG Oral | | + + + + | 2022-03-17 00:00 | MECLIZINE HCL | [facility] | + + + + | 2022-03-17 00:00 | MECLIZINE HCL | [facility] | + + + + | 2022-03-17 00:00 | MECLIZINE HCL | [facility] | + + + + | 2022-03-17 00:00 | MECLIZINE HCL | [facility] | + + + + | 2022-03-17 00:00 | MECLIZINE HCL | [facility] | + + + + | 2022-03-17 00:00 | meclizine hydrochloride 25 | [facility] | | | MG Oral Tablet | | + + + + | 2014-03-24 00:00 | GUAIFENESIN/CODEINE | [facility] | | | PHOSPHATE | | + + + + | 2014-03-24 00:00 | GUAIFENESIN/CODEINE | [facility] | | | PHOSPHATE | | + + + + | 2014-03-24 00:00 | GUAIFENESIN/CODEINE | [facility] | | | PHOSPHATE | | + + + + | 2014-03-24 00:00 | GUAIFENESIN/CODEINE | [facility] | | | PHOSPHATE | | + + + + | 2014-03-24 00:00 | GUAIFENESIN/CODEINE | [facility] | | | PHOSPHATE | | + + + + | 2014-03-24 00:00 | GUAIFENESIN/CODEINE | [facility] | | | PHOSPHATE | | + + + + | 2014-03-24 00:00 | GUAIFENESIN/CODEINE | [facility] | | | PHOSPHATE | | + + + + | 2014-03-24 00:00 | GUAIFENESIN/CODEINE | [facility] | | | PHOSPHATE | | + + + + | 2014-03-24 00:00 | GUAIFENESIN/CODEINE | [facility] | | | PHOSPHATE | | + + + + | 2014-03-24 00:00 | codeine phosphate 2 MG/ML | [facility] | | | / guaifenesin 20 MG/ML Oral | | | | [facility] | | + + + + Problems + + + + | date | description | facility | + + + + | 2014-03-24 00:00 | Acute bronchitis | [facility] | + + + + | 2014-03-24 00:00 | Acute bronchitis | [facility] | + + + + | 2014-03-24 00:00 | Acute bronchitis | [facility] | + + + + | 2014-03-24 00:00 | Acute bronchitis | [facility] | + + + + | 2014-03-24 00:00 | Acute bronchitis | [facility] | + + + + | 2014-03-24 00:00 | Acute bronchitis | [facility] | + + + + | 2014-03-24 00:00 | Acute bronchitis | [facility] | + + + + | 2014-03-24 00:00 | Acute bronchitis | [facility] | + + + + | 2014-03-24 00:00 | Acute bronchitis | [facility] | + + + + | 2014-11-22 00:00 | Candidal dermatitis | [facility] | + + + + | 2014-11-22 00:00 | Asthma exacerbation | [facility] | + + + + | 2014-11-22 00:00 | Candidiasis of skin | [facility] | + + + + | 2014-11-22 00:00 | Candidiasis of skin | [facility] | + + + + | 2014-11-22 00:00 | Candidiasis of skin | [facility] | + + + + | 2014-11-22 00:00 | Candidiasis of skin | [facility] | + + + + | 2014-11-22 00:00 | Candidiasis of skin | [facility] | + + + + | 2014-11-22 00:00 | Candidiasis of skin | [facility] | + + + + | 2014-11-22 00:00 | Candidiasis of skin | [facility] | + + + + | 2014-11-22 00:00 | Candidiasis of skin | [facility] | + + + + | 2014-11-22 00:00 | Candidiasis of skin | [facility] | + + + + | 2014-11-22 00:00 | Asthma with acute | [facility] | | | exacerbation | | + + + + | 2014-11-22 00:00 | Asthma with acute | [facility] | | | exacerbation | | + + + + | 2014-11-22 00:00 | Asthma with acute | [facility] | | | exacerbation | | + + + + | 2014-11-22 00:00 | Asthma with acute | [facility] | | | exacerbation | | + + + + | 2014-11-22 00:00 | Asthma with acute | [facility] | | | exacerbation | | + + + + | 2014-11-22 00:00 | Asthma with acute | [facility] | | | exacerbation | | + + + + | 2014-11-22 00:00 | Asthma with acute | [facility] | | | exacerbation | | + + + + | 2014-11-22 00:00 | Asthma with acute | [facility] | | | exacerbation | | + + + + | 2014-11-22 00:00 | Asthma with acute | [facility] | | | exacerbation | | + + + + | 2015-03-18 00:00 | Tonsillitis | [facility] | + + + + | 2015-03-18 00:00 | Tonsillitis | [facility] | + + + + | 2015-03-18 00:00 | Tonsillitis | [facility] | + + + + | 2015-03-18 00:00 | Tonsillitis | [facility] | + + + + | 2015-03-18 00:00 | Tonsillitis | [facility] | + + + + | 2015-03-18 00:00 | Tonsillitis | [facility] | + + + + | 2015-03-18 00:00 | Tonsillitis | [facility] | + + + + | 2015-03-18 00:00 | Tonsillitis | [facility] | + + + + | 2015-03-18 00:00 | Tonsillitis | [facility] | + + + + | 2015-03-18 00:00 | Globus sensation | [facility] | + + + + | 2015-03-18 00:00 | Globus sensation | [facility] | + + + + | 2015-03-18 00:00 | Globus sensation | [facility] | + + + + | 2015-03-18 00:00 | Globus sensation | [facility] | + + + + | 2015-03-18 00:00 | Globus sensation | [facility] | + + + + | 2015-03-18 00:00 | Globus sensation | [facility] | + + + + | 2015-03-18 00:00 | Globus sensation | [facility] | + + + + | 2015-03-18 00:00 | Globus sensation | [facility] | + + + + | 2015-03-18 00:00 | Globus sensation | [facility] | + + + + | 2015-04-04 00:00 | Asthma attack | [facility] | + + + + | 2015-04-04 00:00 | Anxiety | [facility] | + + + + | 2015-04-04 00:00 | Anxiety | [facility] | + + + + | 2015-04-04 00:00 | Anxiety | [facility] | + + + + | 2015-04-04 00:00 | Anxiety | [facility] | + + + + | 2015-04-04 00:00 | Anxiety | [facility] | + + + + | 2015-04-04 00:00 | Anxiety | [facility] | + + + + | 2015-04-04 00:00 | Anxiety | [facility] | + + + + | 2015-04-04 00:00 | Anxiety | [facility] | + + + + | 2015-04-04 00:00 | Anxiety | [facility] | + + + + | 2015-04-04 00:00 | Exacerbation of asthma | [facility] | + + + + | 2015-04-04 00:00 | Exacerbation of asthma | [facility] | + + + + | 2015-04-04 00:00 | Exacerbation of asthma | [facility] | + + + + | 2015-04-04 00:00 | Exacerbation of asthma | [facility] | + + + + | 2015-04-04 00:00 | Exacerbation of asthma | [facility] | + + + + | 2015-04-04 00:00 | Exacerbation of asthma | [facility] | + + + + | 2015-04-04 00:00 | Exacerbation of asthma | [facility] | + + + + | 2015-04-04 00:00 | Exacerbation of asthma | [facility] | + + + + | 2015-04-04 00:00 | Exacerbation of asthma | [facility] | + + + + | 2015-04-15 00:00 | Contusion of upper | [facility] | | | extremity | | + + + + | 2015-04-15 00:00 | Contusion of upper | [facility] | | | extremity | | + + + + | 2015-04-15 00:00 | Contusion of upper | [facility] | | | extremity | | + + + + | 2015-04-15 00:00 | Contusion of upper | [facility] | | | extremity | | + + + + | 2015-04-15 00:00 | Contusion of upper | [facility] | | | extremity | | + + + + | 2015-04-15 00:00 | Contusion of upper | [facility] | | | extremity | | + + + + | 2015-04-15 00:00 | Contusion of upper | [facility] | | | extremity | | + + + + | 2015-04-15 00:00 | Contusion of upper | [facility] | | | extremity | | + + + + | 2015-04-15 00:00 | Contusion of upper | [facility] | | | extremity | | + + + + | 2016-06-17 00:00 | Viral URI with cough | [facility] | + + + + | 2016-06-17 00:00 | Viral upper respiratory | [facility] | | | tract infection with cough | | + + + + | 2016-06-17 00:00 | Viral upper respiratory | [facility] | | | tract infection with cough | | + + + + | 2016-06-17 00:00 | Viral upper respiratory | [facility] | | | tract infection with cough | | + + + + | 2016-06-17 00:00 | Viral upper respiratory | [facility] | | | tract infection with cough | | + + + + | 2016-06-17 00:00 | Viral upper respiratory | [facility] | | | tract infection with cough | | + + + + | 2016-06-17 00:00 | Viral upper respiratory | [facility] | | | tract infection with cough | | + + + + | 2016-06-17 00:00 | Viral upper respiratory | [facility] | | | tract infection with cough | | + + + + | 2016-06-17 00:00 | Viral upper respiratory | [facility] | | | tract infection with cough | | + + + + | 2016-06-17 00:00 | Viral upper respiratory | [facility] | | | tract infection with cough | | + + + + | 2016-07-16 00:00 | Encounter for medical | [facility] | | | screening examination | | + + + + | 2016-07-16 00:00 | Encounter for medical | [facility] | | | screening examination | | + + + + | 2016-07-16 00:00 | Encounter for medical | [facility] | | | screening examination | | + + + + | 2016-07-16 00:00 | Encounter for medical [facility] | | | screening examination | | + + + + | 2016-07-16 00:00 | Encounter for medical | [facility] | | | screening examination | | + + + + | 2016-07-16 00:00 | Encounter for medical [facility] | | | screening examination | | + + + + | 2016-07-16 00:00 | Encounter for medical | [facility] | | | screening examination | | + + + + | 2016-07-16 00:00 | Encounter for medical | [facility] | | | screening examination | | + + + + | 2016-07-16 00:00 | Encounter for medical | [facility] | | | screening examination | | + + + + | 2016-12-19 00:00 | Facial contusion | [facility] | + + + + | 2016-12-19 00:00 | Contusion of face | [facility] | + + + + | 2016-12-19 00:00 | Contusion of face | [facility] | + + + + | 2016-12-19 00:00 | Contusion of face | [facility] | + + + + | 2016-12-19 00:00 | Contusion of face | [facility] | + + + + | 2016-12-19 00:00 | Contusion of face | [facility] | + + + + | 2016-12-19 00:00 | Contusion of face | [facility] | + + + + | 2016-12-19 00:00 | Contusion of face | [facility] | + + + + | 2016-12-19 00:00 | Contusion of face | [facility] | + + + + | 2016-12-19 00:00 | Contusion of face | [facility] | + + + + | 2018-10-06 00:00 | Left otitis externa | [facility] | + + + + | 2018-10-06 00:00 | Otitis externa of left ear | [facility] | | | | | + + + + | 2018-10-06 00:00 | Otitis externa of left ear | [facility] | | | | | + + + + | 2018-10-06 00:00 | Otitis externa of left ear | [facility] | | | | | + + + + | 2018-10-06 00:00 | Otitis externa of left ear | [facility] | | | | | + + + + | 2018-10-06 00:00 | Otitis externa of left ear | [facility] | | | | | + + + + | 2018-10-06 00:00 | Otitis externa of left ear | [facility] | | | | | + + + + | 2018-10-06 00:00 | Otitis externa of left ear | [facility] | | | | | + + + + | 2018-10-06 00:00 | Otitis externa of left ear | [facility] | | | | | + + + + | 2018-10-06 00:00 | Otitis externa of left ear | [facility] | | | | | + + + + | 2019-04-05 00:00 | Abdominal wall abscess | [facility] | + + + + | 2019-04-05 00:00 | Abdominal abscess | [facility] | + + + + | 2019-04-05 00:00 | Abdominal abscess | [facility] | + + + + | 2019-04-05 00:00 | Abdominal abscess | [facility] | + + + + | 2019-04-05 00:00 | Abdominal abscess | [facility] | + + + + | 2019-04-05 00:00 | Abdominal abscess | [facility] | + + + + | 2019-04-05 00:00 | Abdominal abscess | [facility] | + + + + | 2019-04-05 00:00 | Abdominal abscess | [facility] | + + + + | 2019-04-05 00:00 | Abdominal abscess | [facility] | + + + + | 2019-04-05 00:00 | Abdominal abscess | [facility] | + + + + | 2019-04-05 00:00 | Abscess of abdominal wall | [facility] | + + + + | 2019-04-05 00:00 | Abscess of abdominal wall | [facility] | + + + + | 2019-04-05 00:00 | Abscess of abdominal wall | [facility] | + + + + | 2019-04-05 00:00 | Abscess of abdominal wall | [facility] | + + + + | 2019-04-05 00:00 | Abscess of abdominal wall | [facility] | + + + + | 2019-04-05 00:00 | Abscess of abdominal wall | [facility] | + + + + | 2019-04-05 00:00 | Abscess of abdominal wall | [facility] | + + + + | 2019-04-05 00:00 | Abscess of abdominal wall | [facility] | + + + + | 2019-04-05 00:00 | Abscess of abdominal wall | [facility] | + + + + | 2019-09-24 00:00 | Right otitis externa | [facility] | + + + + | 2019-09-24 00:00 | Cutaneous abscess | [facility] | + + + + | 2019-09-24 00:00 | Otitis externa of right | [facility] | | | ear | | + + + + | 2019-09-24 00:00 | Otitis externa of right | [facility] | | | ear | | + + + + | 2019-09-24 00:00 | Otitis externa of right | [facility] | | | ear | | + + + + | 2019-09-24 00:00 | Otitis externa of right | [facility] | | | ear | | + + + + | 2019-09-24 00:00 | Otitis externa of right | [facility] | | | ear | | + + + + | 2019-09-24 00:00 | Otitis externa of right | [facility] | | | ear | | + + + + | 2019-09-24 00:00 | Otitis externa of right | [facility] | | | ear | | + + + + | 2019-09-24 00:00 | Otitis externa of right | [facility] | | | ear | | + + + + | 2019-09-24 00:00 | Otitis externa of right | [facility] | | | ear | | + + + + 2019-09-24 00:00 | Abscess of skin | [facility] | + + + + | 2019-09-24 00:00 | Abscess of skin | [facility] | + + + + | 2019-09-24 00:00 | Abscess of skin | [facility] | + + + + | 2019-09-24 00:00 | Abscess of skin | [facility] | + + + + | 2019-09-24 00:00 | Abscess of skin | [facility] | + + + + 2019-09-24 00:00 | Abscess of skin | [facility] | + + + + 2019-09-24 00:00 | Abscess of skin | [facility] | + + + + | 2019-09-24 00:00 | Abscess of skin | [facility] | + + + + | 2019-09-24 00:00 | Abscess of skin | [facility] | + + + + | 2019-12-16 00:00 | Poorly controlled diabetes | [facility] | | | mellitus | | + + + + | 2019-12-16 00:00 | Poorly controlled diabetes | [facility] | | | mellitus | | + + + + | 2019-12-16 00:00 | Poorly controlled diabetes | [facility] | | | mellitus | | + + + + | 2019-12-16 00:00 | Poorly controlled diabetes | [facility] | | | mellitus | | + + + + | 2019-12-16 00:00 | Poorly controlled diabetes | [facility] | | | mellitus | | + + + + | 2019-12-16 00:00 | Poorly controlled diabetes | [facility] | | | mellitus | | + + + + | 2019-12-16 00:00 | Poorly controlled diabetes | [facility] | | | mellitus | | + + + + | 2019-12-16 00:00 | Poorly controlled diabetes | [facility] | | | mellitus | | + + + + | 2019-12-16 00:00 | Poorly controlled diabetes | [facility] | | | mellitus | | + + + + | 2019-12-16 00:00 | Hypertension | [facility] | + + + + | 2019-12-16 00:00 | Hypertension | [facility] | + + + + | 2019-12-16 00:00 | Hypertension | [facility] | + + + + | 2019-12-16 00:00 | Hypertension | [facility] | + + + + | 2019-12-16 00:00 | Hypertension | [facility] | + + + + | 2019-12-16 00:00 | Hypertension | [facility] | + + + + | 2019-12-16 00:00 | Hypertension | [facility] | + + + + | 2019-12-16 00:00 | Hypertension | [facility] | + + + + | 2019-12-16 00:00 | Hypertension | [facility] | + + + + | 2019-12-16 00:00 | Chest pain | [facility] | + + + + | 2019-12-16 00:00 | Chest pain | [facility] | + + + + | 2019-12-16 00:00 | Chest pain | [facility] | + + + + | 2019-12-16 00:00 | Chest pain | [facility] | + + + + | 2019-12-16 00:00 | Chest pain | [facility] | + + + + | 2019-12-16 00:00 | Chest pain | [facility] | + + + + | 2019-12-16 00:00 | Chest pain | [facility] | + + + + | 2019-12-16 00:00 | Chest pain | [facility] | + + + + | 2019-12-16 00:00 | Chest pain | [facility] | + + + + | 2020-09-15 00:00 | UTI (urinary tract | [facility] | | | infection) | | + + + + | 2020-09-15 00:00 | Urinary tract infection | [facility] | + + + + | 2020-09-15 00:00 | Urinary tract infection | [facility] | + + + + | 2020-09-15 00:00 | Urinary tract infection | [facility] | + + + + | 2020-09-15 00:00 | Urinary tract infection | [facility] | + + + + | 2020-09-15 00:00 | Urinary tract infection | [facility] | + + + + | 2020-09-15 00:00 | Urinary tract infection | [facility] | + + + + | 2020-09-15 00:00 | Urinary tract infection | [facility] | + + + + | 2020-09-15 00:00 | Urinary tract infection | [facility] | + + + + | 2020-09-15 00:00 | Urinary tract infection | [facility] | + + + + | 2020-09-15 00:00 | Acute mastitis of left | [facility] | | | breast | | + + + + | 2020-09-15 00:00 | Acute mastitis of left | [facility] | | | breast | | + + + + | 2020-09-15 00:00 | Acute mastitis of left | [facility] | | | breast | | + + + + | 2020-09-15 00:00 | Acute mastitis of left | [facility] | | | breast | | + + + + | 2020-09-15 00:00 | Acute mastitis of left | [facility] | | | breast | | + + + + | 2020-09-15 00:00 | Acute mastitis of left | [facility] | | | breast | | + + + + | 2020-09-15 00:00 | Acute mastitis of left | [facility] | | | breast | | + + + + | 2020-09-15 00:00 | Acute mastitis of left | [facility] | | | breast | | + + + + | 2020-09-15 00:00 | Acute mastitis of left | [facility] | | | breast | | + + + + | 2020-10-23 00:00 | Congestive heart failure | [facility] | + + + + | 2020-10-23 00:00 | Congestive heart failure | [facility] | + + + + | 2020-10-23 00:00 | Congestive heart failure | [facility] | + + + + | 2020-10-23 00:00 | Congestive heart failure | [facility] | + + + + | 2020-10-23 00:00 | Congestive heart failure | [facility] | + + + + | 2020-10-23 00:00 | Congestive heart failure | [facility] | + + + + | 2020-10-23 00:00 | Congestive heart failure | [facility] | + + + + | 2020-10-23 00:00 | Congestive heart failure | [facility] | + + + + | 2020-10-23 00:00 | Congestive heart failure | [facility] | + + + + | 2020-11-01 00:00 | Allergic asthma | [facility] | + + + + | 2020-11-01 00:00 | Bronchitis | [facility] | + + + + | 2020-11-01 00:00 | Bronchitis | [facility] | + + + + | 2020-11-01 00:00 | Bronchitis | [facility] | + + + + | 2020-11-01 00:00 | Bronchitis | [facility] | + + + + | 2020-11-01 00:00 | Bronchitis | [facility] | + + + + | 2020-11-01 00:00 | Bronchitis | [facility] | + + + + | 2020-11-01 00:00 | Bronchitis | [facility] | + + + + | 2020-11-01 00:00 | Bronchitis | [facility] | + + + + | 2020-11-01 00:00 | Bronchitis | [facility] | + + + + | 2020-11-01 00:00 | Extrinsic asthma | [facility] | + + + + | 2020-11-01 00:00 | Extrinsic asthma | [facility] | + + + + | 2020-11-01 00:00 | Extrinsic asthma | [facility] | + + + + | 2020-11-01 00:00 | Extrinsic asthma | [facility] | + + + + | 2020-11-01 00:00 | Extrinsic asthma | [facility] | + + + + | 2020-11-01 00:00 | Extrinsic asthma | [facility] | + + + + | 2020-11-01 00:00 | Extrinsic asthma | [facility] | + + + + | 2020-11-01 00:00 | Extrinsic asthma | [facility] | + + + + | 2020-11-01 00:00 | Extrinsic asthma | [facility] | + + + + | 2020-11-01 00:00 | Hyperglycemia | [facility] | + + + + | 2020-11-01 00:00 | Hyperglycemia | [facility] | + + + + | 2020-11-01 00:00 | Hyperglycemia | [facility] | + + + + | 2020-11-01 00:00 | Hyperglycemia | [facility] | + + + + | 2020-11-01 00:00 | Hyperglycemia | [facility] | + + + + | 2020-11-01 00:00 | Hyperglycemia | [facility] | + + + + | 2020-11-01 00:00 | Hyperglycemia | [facility] | + + + + | 2020-11-01 00:00 | Hyperglycemia | [facility] | + + + + | 2020-11-01 00:00 | Hyperglycemia | [facility] | + + + + | 2021-10-26 00:00 | Febrile illness | [facility] | + + + + | 2021-10-26 00:00 | Febrile illness | [facility] | + + + + | 2021-10-26 00:00 | Febrile illness | [facility] | + + + + | 2021-10-26 00:00 | Febrile illness | [facility] | + + + + | 2021-10-26 00:00 | Febrile illness | [facility] | + + + + | 2021-10-26 00:00 | Febrile illness | [facility] | + + + + | 2021-10-26 00:00 | Febrile illness | [facility] | + + + + | 2021-10-26 00:00 | Febrile illness | [facility] | + + + + | 2021-10-26 00:00 | Febrile illness | [facility] | + + + + | 2021-11-02 00:00 | Myositis | [facility] | + + + + | 2021-11-02 00:00 | Myositis | [facility] | + + + + | 2021-11-02 00:00 | Myositis | [facility] | + + + + | 2021-11-02 00:00 | Myositis | [facility] | + + + + | 2021-11-02 00:00 | Myositis | [facility] | + + + + | 2021-11-02 00:00 | Myositis | [facility] | + + + + | 2021-11-02 00:00 | Myositis | [facility] | + + + + | 2021-11-02 00:00 | Myositis | [facility] | + + + + | 2021-11-02 00:00 | Myositis | [facility] | + + + + | 2021-12-20 [...] | [facility] | | | 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 [...] | 2022-01-22 00:00 | CHF exacerbation | [facility] | + + + + | 2022-01-22 00:00 | Acute on chronic | [facility] | | | congestive heart failure | | + + + + | 2022-01-22 00:00 | Acute on chronic | [facility] | | | congestive heart failure | | + + + + | 2022-01-22 00:00 | Acute on chronic | [facility] | | | congestive heart failure | | + + + + | 2022-01-22 00:00 | Acute on chronic | [facility] | | | congestive heart failure | | + + + + | 2022-01-22 00:00 | Acute on chronic | [facility] | | | congestive heart failure | | + + + + | 2022-01-22 00:00 | Acute on chronic | [facility] | | | congestive heart failure | | + + + + | 2022-01-22 00:00 | Acute on chronic | [facility] | | | congestive heart failure | | + + + + | 2022-01-22 00:00 | Acute on chronic | [facility] | | | congestive heart failure | | + + + + | 2022-01-22 00:00 | Acute on chronic | [facility] | | | congestive heart failure | | + + + + | 2022-03-14 00:00 | Patient left without being | [facility] | | | seen | | + + + + | 2022-03-14 00:00 | Patient left without being | [facility] | | | seen | | + + + + | 2022-03-14 00:00 | Patient left without being | [facility] | | | seen | | + + + + | 2022-03-14 00:00 | Patient left without being | [facility] | | | seen | | + + + + | 2022-03-14 00:00 | Patient left without being | [facility] | | | seen | | + + + + | 2022-03-14 00:00 | Patient left without being | [facility] | | | seen | | + + + + | 2022-03-17 00:00 | Vertigo | [facility] | + + + + | 2022-03-17 00:00 | Vertigo | [facility] | + + + + | 2022-03-17 00:00 | Vertigo | [facility] | + + + + | 2022-03-17 00:00 | Vertigo | [facility] | + + + + | 2022-03-17 00:00 | Vertigo | [facility] | + + + + | 2022-03-17 00:00 | Vertigo | [facility] | + + + + | 2022-03-25 00:00 | Menorrhagia | [facility] | + + + + | 2022-03-25 00:00 | Menorrhagia | [facility] | + + + + | 2022-03-25 00:00 | Menorrhagia | [facility] | + + + + | 2022-03-25 00:00 | Menorrhagia | [facility] | + + + + | 2022-03-25 00:00 | Menorrhagia | [facility] | + + + + | 2022-03-25 00:00 | Menorrhagia | [facility] | + + + + | 2022-04-08 00:00 | Chest wall pain | [facility] | + + + + | 2022-04-08 00:00 | Chest wall pain | [facility] | + + + + | 2022-04-08 00:00 | Chest wall pain | [facility] | + + + + | 2022-04-08 00:00 | Chest wall pain | [facility] | + + + + | 2022-04-19 00:00 | Atypical chest pain | [facility] | + + + + | 2022-04-19 00:00 | Atypical chest pain | [facility] | + + + + Procedures No [...] | | urine test | 19:09 | [facility] | | | [...] (missing) | | specimen | 19:09 | [facility] | | | | | collection | [...] (missing) | | blood | 14:14 | [facility] | SEPARATE | | | | culture [...] | virus A RNA | 21:50 | [facility] | | | | | [Presence] | [...] (missing) | | plasma | 16:35 | [facility] | | | | | calcium | [...] (missing) | | measurement | 19:30 | [facility] | | | | | by test [...] (missing) | | blood | 00:35 | [facility] | | | | | [...] (missing) | | blood | 16:56 | [facility] | | | | | eosinophil | [...] (missing) | | erythrocyte | 16:56 | [facility] | | | | | mean | [...] + + | Glomerular | 2022-01-22 | [facility] [address] | [address] | (missing) | (missing) [...] 2022-01-03 00:00 | Current Light tobacco | [facility] | sm[facility] | | + + + + | 2022-01-22 00:00 | Current Light tobacco | [facility] | | | smoker | | + + + + | 2022-01-24 00:00 | Current Light tobacco | [facility] | | | smoker | | + + + + | 2022-02-01 00:00 | Current Light tobacco | [facility] | | | smoker | | + + + + | 2022-02-28 00:00 | Current Light tobacco | [facility] | | | smoker | | + + + + | 2022-03-14 00:00 | Current Light tobacco | [facility] | | | smoker | | + + + + | 2022-03-17 00:00 | Current Light tobacco | [facility] | | | smoker | | + + + + | 2022-03-25 00:00 | Current Light tobacco | [facility] | | | smoker | | + + + + | 2022-03-26 00:00 | Current Light tobacco | [facility] | | | smoker | | + + + + | 2022-04-04 00:00 | Current Light tobacco | [facility] | | | smoker | | + + + + | 2022-04-06 00:00 | Current Light tobacco | [facility] | | | smoker | | + + + + | 2022-04-08 00:00 | Current Light tobacco | [facility] | | | smoker | | + + + + | 2022-04-13 00:00 | Current Light tobacco | [facility] | | | smoker | | + + + + | 2022-04-19 00:00 | Current Light tobacco | [facility] | | | smoker | | + [...]
--- OUTSIDE RECORDS SUMMARY | ~2023-02-04 | XMS | Continuity of Care Document ---
Demographics + + + | Address | [address] | | | [place] [address] | + + + | Preferred Language | Unknown | + + + | Marital Status | Legally | + + + | Congregation Affiliation | Unknown | + + + | Race | White | + + + | Ethnic Group | Not or | + + + Author + + + | Author | [facility] | + + + | Organization | [facility] | + + + | Address | [address] | | | [place] [address] | + + + | Phone | | + + + Care Team Providers + + + + | Care Sports Statistician Name | Role | Phone | + [...] 2022-01-03 00:00 | No vaccine administered | [facility] | + + + + | 2022-01-22 00:00 | No vaccine administered | [facility] | + + + + | 2022-01-24 00:00 | No vaccine administered | [facility] | + + + + | 2022-02-01 00:00 | No vaccine administered | [facility] | + + + + | 2022-02-28 00:00 | No vaccine administered | [facility] | + + + + | 2022-03-14 00:00 | No vaccine administered | [facility] | + + + + | 2022-03-17 00:00 | No vaccine administered | [facility] | + + + + | 2022-03-25 00:00 | No vaccine administered | [facility] | + + + + | 2022-03-26 00:00 | No vaccine administered | [facility] | + + + + | 2022-04-04 00:00 | No vaccine administered | [facility] | + + + + | 2022-04-06 00:00 | No vaccine administered | [facility] | + + + + | 2022-04-08 00:00 | No vaccine administered | [facility] | + + + + | 2022-04-13 00:00 | No vaccine administered | [facility] | + + + + | 2022-04-19 00:00 | No vaccine administered | [facility] | + + + + Medications + + + + | date | description | facility | + + + + | 2022-03-17 00:00 | ONDANSETRON | [facility] | + + + + | 2022-03-17 00:00 | ONDANSETRON | [facility] | + + + + | 2022-03-17 00:00 | ONDANSETRON | [facility] | + + + + | 2022-03-17 00:00 | ONDANSETRON | [facility] | + + + + | 2022-03-17 00:00 | ONDANSETRON | [facility] | + + + + | 2022-03-17 00:00 | ondansetron 4 MG | [facility] | | | Disintegrating Oral Tablet | | + + + + | 2022-01-05 00:00 | MUPIROCIN | [facility] | + + + + | 2022-01-26 00:00 | MUPIROCIN | [facility] | + + + + | 2022-01-29 00:00 | MUPIROCIN | [facility] | + + + + | 2022-02-08 00:00 | MUPIROCIN | [facility] | + + + + | 2022-02-28 00:00 | MUPIROCIN | [facility] | + + + + | 2022-02-28 00:00 | MUPIROCIN | [facility] | + + + + | 2022-03-14 00:00 | MUPIROCIN | [facility] | + + + + | 2022-03-17 00:00 | MUPIROCIN | [facility] | + + + + | 2022-03-25 00:00 | MUPIROCIN | [facility] | + + + + | 2022-03-26 00:00 | MUPIROCIN | [facility] | + + + + | 2022-04-04 00:00 | MUPIROCIN | [facility] | + + + + | 2022-04-06 00:00 | MUPIROCIN | [facility] | + + + + | 2022-04-08 00:00 | MUPIROCIN | [facility] | + + + + | 2022-04-13 00:00 | MUPIROCIN | [facility] | + + + + | 2022-04-19 00:00 | MUPIROCIN | [facility] | + + + + | 2022-01-03 00:00 | mupirocin 0.02 MG/MG | [facility] | | | Topical Ointment | | + + + + | 2022-01-22 00:00 | mupirocin 0.02 MG/MG | [facility] | | | Topical Ointment | | + + + + | 2022-01-24 00:00 | mupirocin 0.02 MG/MG | [facility] | | | Topical Ointment | | + + + + | 2022-02-01 00:00 | mupirocin 0.02 MG/MG | [facility] | | | Topical Ointment | | + + + + | 2022-02-28 00:00 | mupirocin 0.02 MG/MG | [facility] | | | Topical Ointment | | + + + + | 2022-03-14 00:00 | mupirocin 0.02 MG/MG | [facility] | | | Topical Ointment | | + + + + | 2022-03-17 00:00 | mupirocin 0.02 MG/MG | [facility] | | | Topical Ointment | | + + + + | 2022-03-25 00:00 | mupirocin 0.02 MG/MG | [facility] | | | Topical Ointment | | + + + + | 2022-03-26 00:00 | mupirocin 0.02 MG/MG | [facility] | | | Topical Ointment | | + + + + | 2022-04-04 00:00 | mupirocin 0.02 MG/MG | [facility] | | | Topical Ointment | | + + + + | 2022-04-06 00:00 | mupirocin 0.02 MG/MG | [facility] | | | Topical Ointment | | + + + + | 2022-04-08 00:00 | mupirocin 0.02 MG/MG | [facility] | | | Topical Ointment | | + + + + | 2022-04-13 00:00 | mupirocin 0.02 MG/MG | [facility] | | | Topical Ointment | | + + + + | 2022-04-19 00:00 | mupirocin 0.02 MG/MG | [facility] | | | Topical Ointment | | + + + + | 2020-02-22 00:00 | PHENAZOPYRIDINE HCL | [facility] | + + + + | 2020-02-22 00:00 | PHENAZOPYRIDINE HCL | [facility] | + + + + | 2020-02-22 00:00 | PHENAZOPYRIDINE HCL | [facility] | + + + + | 2020-02-22 00:00 | PHENAZOPYRIDINE HCL | [facility] | + + + + | 2020-02-22 00:00 | PHENAZOPYRIDINE HCL | [facility] | + + + + | 2020-02-22 00:00 | PHENAZOPYRIDINE HCL | [facility] | + + + + | 2020-02-22 00:00 | PHENAZOPYRIDINE HCL | [facility] | + + + + | 2020-02-22 00:00 | PHENAZOPYRIDINE HCL | [facility] | + + + + | 2020-02-22 00:00 | PHENAZOPYRIDINE HCL | [facility] | + + + + | 2020-02-22 00:00 | phenazopyridine | [facility] | | | hydrochloride 100 MG Oral | | | | Tablet [Pyridium] | | + + + + | 2022-01-05 00:00 | TICAGRELOR | [facility] | + + + + | 2022-01-26 00:00 | TICAGRELOR | [facility] | + + + + | 2022-01-29 00:00 | TICAGRELOR | [facility] | + + + + | 2022-02-08 00:00 | TICAGRELOR | [facility] | + + + + | 2022-02-28 00:00 | TICAGRELOR | [facility] | + + + + | 2022-02-28 00:00 | TICAGRELOR | [facility] | + + + + | 2022-03-14 00:00 | TICAGRELOR | [facility] | + + + + | 2022-03-17 00:00 | TICAGRELOR | [facility] | + + + + | 2022-03-25 00:00 | TICAGRELOR | [facility] | + + + + | 2022-03-26 00:00 | TICAGRELOR | [facility] | + + + + | 2022-04-04 00:00 | TICAGRELOR | [facility] | + + + + | 2022-04-06 00:00 | TICAGRELOR | [facility] | + + + + | 2022-04-08 00:00 | TICAGRELOR | [facility] | + + + + | 2022-04-13 00:00 | TICAGRELOR | [facility] | + + + + | 2022-04-19 00:00 | TICAGRELOR | [facility] | + + + + | 2022-01-03 00:00 | ticagrelor 90 MG Oral | [facility] | | | Tablet [Brilinta] | | + + + + | 2022-01-22 00:00 | ticagrelor 90 MG Oral | [facility] | | | Tablet [Brilinta] | | + + + + | 2022-01-24 00:00 | ticagrelor 90 MG Oral | [facility] | | | Tablet [Brilinta] | | + + + + | 2022-02-01 00:00 | ticagrelor 90 MG Oral | [facility] | | | Tablet [Brilinta] | | + + + + | 2022-02-28 00:00 | ticagrelor 90 MG Oral | [facility] | | | Tablet [Brilinta] | | + + + + | 2022-03-14 00:00 | ticagrelor 90 MG Oral | [facility] | | | Tablet [Brilinta] | | + + + + | 2022-03-17 00:00 | ticagrelor 90 MG Oral | [facility] | | | Tablet [Brilinta] | | + + + + | 2022-03-25 00:00 | ticagrelor 90 MG Oral | [facility] | | | Tablet [Brilinta] | | + + + + | 2022-03-26 00:00 | ticagrelor 90 MG Oral | [facility] | | | Tablet [Brilinta] | | + + + + | 2022-04-04 00:00 | ticagrelor 90 MG Oral | [facility] | | | Tablet [Brilinta] | | + + + + | 2022-04-06 00:00 | ticagrelor 90 MG Oral | [facility] | | | Tablet [Brilinta] | | + + + + | 2022-04-08 00:00 | ticagrelor 90 MG Oral | [facility] | | | Tablet [Brilinta] | | + + + + | 2022-04-13 00:00 | ticagrelor 90 MG Oral | [facility] | | | Tablet [Brilinta] | | + + + + | 2022-04-19 00:00 | ticagrelor 90 MG Oral | [facility] | | | Tablet [Brilinta] | | + + + + | 2014-11-22 00:00 | BECLOMETHASONE | [facility] | | | DIPROPIONATE | | + + + + | 2014-11-22 00:00 | BECLOMETHASONE | [facility] | | | DIPROPIONATE | | + + + + | 2014-11-22 00:00 | BECLOMETHASONE | [facility] | | | DIPROPIONATE | | + + + + | 2014-11-22 00:00 | BECLOMETHASONE | [facility] | | | DIPROPIONATE | | + + + + | 2014-11-22 00:00 | BECLOMETHASONE | [facility] | | | DIPROPIONATE | | + + + + | 2014-11-22 00:00 | BECLOMETHASONE | [facility] | | | DIPROPIONATE | | + + + + | 2014-11-22 00:00 | BECLOMETHASONE | [facility] | | | DIPROPIONATE | | + + + + | 2014-11-22 00:00 | BECLOMETHASONE | [facility] | | | DIPROPIONATE | | + + + + | 2014-11-22 00:00 | BECLOMETHASONE | [facility] | | | DIPROPIONATE | | + + + + | 2014-11-22 00:00 | beclomethasone | [facility] | | | dipropionate 0.04 MG/ACTUAT | | | | Metered Dose Inha | | + + + + | 2022-01-26 00:00 | NITROFURANTOIN | [facility] | | | MONOHYD/M-CRYST | | + + + + | 2022-01-29 00:00 | NITROFURANTOIN | [facility] | | | MONOHYD/M-CRYST | | + + + + | 2022-02-08 00:00 | NITROFURANTOIN | [facility] | | | MONOHYD/M-CRYST | | + + + + | 2022-01-24 00:00 | nitrofurantoin, | [facility] | | | macrocrystals 25 MG / | | | | nitrofurantoin, monohy | | + + + + | 2022-02-01 00:00 | nitrofurantoin, | [facility] | | | macrocrystals 25 MG / | | | | nitrofurantoin, monohy | | + + + + | 2018-10-18 00:00 | DOXYCYCLINE HYCLATE | [facility] | + + + + | 2018-10-18 00:00 | DOXYCYCLINE HYCLATE | [facility] | + + + + | 2018-10-18 00:00 | DOXYCYCLINE HYCLATE | [facility] | + + + + | 2018-10-18 00:00 | DOXYCYCLINE HYCLATE | [facility] | + + + + | 2018-10-18 00:00 | DOXYCYCLINE HYCLATE | [facility] | + + + + | 2018-10-18 00:00 | DOXYCYCLINE HYCLATE | [facility] | + + + + | 2018-10-18 00:00 | DOXYCYCLINE HYCLATE | [facility] | + + + + | 2018-10-18 00:00 | DOXYCYCLINE HYCLATE | [facility] | + + + + | 2018-10-18 00:00 | DOXYCYCLINE HYCLATE | [facility] | + + + + | 2019-04-05 00:00 | DOXYCYCLINE HYCLATE | [facility] | + + + + | 2019-04-05 00:00 | DOXYCYCLINE HYCLATE | [facility] | + + + + | 2019-04-05 00:00 | DOXYCYCLINE HYCLATE | [facility] | + + + + | 2019-04-05 00:00 | DOXYCYCLINE HYCLATE | [facility] | + + + + | 2019-04-05 00:00 | DOXYCYCLINE HYCLATE | [facility] | + + + + | 2019-04-05 00:00 | DOXYCYCLINE HYCLATE | [facility] | + + + + | 2019-04-05 00:00 | DOXYCYCLINE HYCLATE | [facility] | + + + + | 2019-04-05 00:00 | DOXYCYCLINE HYCLATE | [facility] | + + + + | 2019-04-05 00:00 | DOXYCYCLINE HYCLATE | [facility] | + + + + | 2020-09-16 00:00 | DOXYCYCLINE HYCLATE | [facility] | + + + + | 2020-09-16 00:00 | DOXYCYCLINE HYCLATE | [facility] | + + + + | 2020-09-16 00:00 | DOXYCYCLINE HYCLATE | [facility] | + + + + | 2020-09-16 00:00 | DOXYCYCLINE HYCLATE | [facility] | + + + + | 2020-09-16 00:00 | DOXYCYCLINE HYCLATE | [facility] | + + + + | 2020-09-16 00:00 | DOXYCYCLINE HYCLATE | [facility] | + + + + | 2020-09-16 00:00 | DOXYCYCLINE HYCLATE | [facility] | + + + + | 2020-09-16 00:00 | DOXYCYCLINE HYCLATE | [facility] | + + + + | 2020-09-16 00:00 | DOXYCYCLINE HYCLATE | [facility] | + + + + | 2018-10-18 00:00 | doxycycline hyclate 100 MG | [facility] | | | Oral Capsule | | + + + + | 2019-04-05 00:00 | doxycycline hyclate 100 MG | [facility] | | | Oral Capsule | | + + + + | 2020-09-16 00:00 | doxycycline hyclate 100 MG | [facility] | | | Oral Capsule | | + + + + | 2022-01-05 00:00 | DOXYCYCLINE MONOHYDRATE | [facility] | + + + + | 2022-01-03 00:00 | doxycycline monohydrate | [facility] | | | 100 MG Oral Capsule | | + + + + | 2022-01-22 00:00 | doxycycline monohydrate | [facility] | | | 100 MG Oral Capsule | | + + + + | 2022-01-03 00:00 | 3 ML insulin aspart, human | [facility] | | | 100 UNT/ML Cartridge | | | | [NovoLog] | | + + + + | 2022-01-22 00:00 | 3 ML insulin aspart, human | [facility] | | | 100 UNT/ML Cartridge | | | | [NovoLog] | | + + + + | 2022-01-24 00:00 | 3 ML insulin aspart, human | [facility] | | | 100 UNT/ML Cartridge | | | | [NovoLog] | | + + + + | 2022-02-01 00:00 | 3 ML insulin aspart, human | [facility] | | | 100 UNT/ML Cartridge | | | | [NovoLog] | | + + + + | 2022-02-28 00:00 | 3 ML insulin aspart, human | [facility] | | | 100 UNT/ML Cartridge | | | | [NovoLog] | | + + + + | 2022-03-14 00:00 | 3 ML insulin aspart, human | [facility] | | | 100 UNT/ML Cartridge | | | | [NovoLog] | | + + + + | 2022-03-17 00:00 | 3 ML insulin aspart, human | [facility] | | | 100 UNT/ML Cartridge | | | | [NovoLog] | | + + + + | 2022-03-25 00:00 | 3 ML insulin aspart, human | [facility] | | | 100 UNT/ML Cartridge | | | | [NovoLog] | | + + + + | 2022-03-26 00:00 | 3 ML insulin aspart, human | [facility] | | | 100 UNT/ML Cartridge | | | | [NovoLog] | | + + + + | 2022-04-04 00:00 | 3 ML insulin aspart, human | [facility] | | | 100 UNT/ML Cartridge | | | | [NovoLog] | | + + + + | 2022-04-06 00:00 | 3 ML insulin aspart, human | [facility] | | | 100 UNT/ML Cartridge | | | | [NovoLog] | | + + + + | 2022-04-08 00:00 | 3 ML insulin aspart, human | [facility] | | | 100 UNT/ML Cartridge | | | | [NovoLog] | | + + + + | 2022-04-13 00:00 | 3 ML insulin aspart, human | [facility] | | | 100 UNT/ML Cartridge | | | | [NovoLog] | | + + + + | 2022-04-19 00:00 | 3 ML insulin aspart, human | [facility] | | | 100 UNT/ML Cartridge | | | | [NovoLog] | | + + + + | 2022-01-05 00:00 | INSULIN ASPART | [facility] | + + + + | 2022-01-26 00:00 | INSULIN ASPART | [facility] | + + + + | 2022-01-29 00:00 | INSULIN ASPART | [facility] | + + + + | 2022-02-08 00:00 | INSULIN ASPART | [facility] | + + + + | 2022-02-28 00:00 | INSULIN ASPART | [facility] | + + + + | 2022-02-28 00:00 | INSULIN ASPART | [facility] | + + + + | 2022-03-14 00:00 | INSULIN ASPART | [facility] | + + + + | 2022-03-17 00:00 | INSULIN ASPART | [facility] | + + + + | 2022-03-25 00:00 | INSULIN ASPART | [facility] | + + + + | 2022-03-26 00:00 | INSULIN ASPART | [facility] | + + + + 2022-04-04 00:00 | INSULIN ASPART | [facility] | + + + + | 2022-04-06 00:00 | INSULIN ASPART | [facility] | + + + + | 2022-04-08 00:00 | INSULIN ASPART | [facility] | + + + + | 2022-04-13 00:00 | INSULIN ASPART | [facility] | + + + + | 2022-04-19 00:00 | INSULIN ASPART | [facility] | + + + + | 2022-01-03 00:00 | 3 ML insulin aspart, human | [facility] | | | 100 UNT/ML Pen Injector | | | | [NovoLog] | | + + + + | 2022-01-22 00:00 | 3 ML insulin aspart, human | [facility] | | | 100 UNT/ML Pen Injector | | | | [NovoLog] | | + + + + | 2022-01-24 00:00 | 3 ML insulin aspart, human | [facility] | | | 100 UNT/ML Pen Injector | | | | [NovoLog] | | + + + + | 2022-02-01 00:00 | 3 ML insulin aspart, human | [facility] | | | 100 UNT/ML Pen Injector | | | | [NovoLog] | | + + + + | 2022-02-28 00:00 | 3 ML insulin aspart, human | [facility] | | | 100 UNT/ML Pen Injector | | | | [NovoLog] | | + + + + | 2022-03-14 00:00 | 3 ML insulin aspart, human | [facility] | | | 100 UNT/ML Pen Injector | | | | [NovoLog] | | + + + + | 2022-03-17 00:00 | 3 ML insulin aspart, human | [facility] | | | 100 UNT/ML Pen Injector | | | | [NovoLog] | | + + + + | 2022-03-25 00:00 | 3 ML insulin aspart, human | [facility] | | | 100 UNT/ML Pen Injector | | | | [NovoLog] | | + + + + | 2022-03-26 00:00 | 3 ML insulin aspart, human | [facility] | | | 100 UNT/ML Pen Injector | | | | [NovoLog] | | + + + + | 2022-04-04 00:00 | 3 ML insulin aspart, human | [facility] | | | 100 UNT/ML Pen Injector | | | | [NovoLog] | | + + + + | 2022-04-06 00:00 | 3 ML insulin aspart, human | [facility] | | | 100 UNT/ML Pen Injector | | | | [NovoLog] | | + + + + | 2022-04-08 00:00 | 3 ML insulin aspart, human | [facility] | | | 100 UNT/ML Pen Injector | | | | [NovoLog] | | + + + + | 2022-04-13 00:00 | 3 ML insulin aspart, human | [facility] | | | 100 UNT/ML Pen Injector | | | | [NovoLog] | | + + + + | 2022-04-19 00:00 | 3 ML insulin aspart, human | [facility] | | | 100 UNT/ML Pen Injector | | | | [NovoLog] | | + + + + | 2022-01-05 00:00 | INSULIN ASPART | [facility] | + + + + | 2022-01-26 00:00 | INSULIN ASPART | [facility] | + + + + | 2022-01-29 00:00 | INSULIN ASPART | [facility] | + + + + | 2022-02-08 00:00 | INSULIN ASPART | [facility] | + + + + | 2022-02-28 00:00 | INSULIN ASPART | [facility] | + + + + | 2022-02-28 00:00 | INSULIN ASPART | [facility] | + + + + | 2022-03-14 00:00 | INSULIN ASPART | [facility] | + + + + | 2022-03-17 00:00 | INSULIN ASPART | [facility] | + + + + | 2022-03-25 00:00 | INSULIN ASPART | [facility] | + + + + | 2022-03-26 00:00 | INSULIN ASPART | [facility] | + + + + | 2022-04-04 00:00 | INSULIN ASPART | [facility] | + + + + | 2022-04-06 00:00 | INSULIN ASPART | [facility] | + + + + | 2022-04-08 00:00 | INSULIN ASPART | [facility] | + + + + | 2022-04-13 00:00 | INSULIN ASPART | [facility] | + + + + | 2022-04-19 00:00 | INSULIN ASPART | [facility] | + + + + | 2021-10-26 00:00 | CEPHALEXIN | [facility] | + + + + | 2021-10-26 00:00 | CEPHALEXIN | [facility] | + + + + 2021-10-26 00:00 | CEPHALEXIN | [facility] | + + + + | 2021-10-26 00:00 | CEPHALEXIN | [facility] | + + + + | 2021-10-26 00:00 | CEPHALEXIN | [facility] | + + + + | 2021-10-26 00:00 | CEPHALEXIN | [facility] | + + + + | 2021-10-26 00:00 | CEPHALEXIN | [facility] | + + + + | 2021-10-26 00:00 | CEPHALEXIN | [facility] | + + + + | 2021-10-26 00:00 | CEPHALEXIN | [facility] | + + + + | 2022-02-01 00:00 | CEPHALEXIN | [facility] | + + + + | 2021-10-26 00:00 | cephalexin 500 MG Oral | [facility] | | | Tablet | | + + + + | 2022-02-01 00:00 | cephalexin 500 MG Oral | [facility] | | | Tablet | | + + + + | 2013-12-03 00:00 | DICLOXACILLIN SODIUM | [facility] | + + + + | 2013-12-03 00:00 | DICLOXACILLIN SODIUM | [facility] | + + + + | 2013-12-03 00:00 | DICLOXACILLIN SODIUM | [facility] | + + + + | 2013-12-03 00:00 | DICLOXACILLIN SODIUM | [facility] | + + + + | 2013-12-03 00:00 | DICLOXACILLIN SODIUM | [facility] | + + + + | 2013-12-03 00:00 | DICLOXACILLIN SODIUM | [facility] | + + + + | 2013-12-03 00:00 | DICLOXACILLIN SODIUM | [facility] | + + + + | 2013-12-03 00:00 | DICLOXACILLIN SODIUM | [facility] | + + + + | 2013-12-03 00:00 | DICLOXACILLIN SODIUM | [facility] | + + + + | 2013-12-03 00:00 | dicloxacillin 500 MG Oral | [facility] | | | Capsule | | + + + + | 2022-02-28 00:00 | NITROGLYCERIN | [facility] | + + + + | 2022-02-28 00:00 | NITROGLYCERIN | [facility] | + + + + | 2022-03-14 00:00 | NITROGLYCERIN | [facility] | + + + + | 2022-03-17 00:00 | NITROGLYCERIN | [facility] | + + + + | 2022-03-25 00:00 | NITROGLYCERIN | [facility] | + + + + | 2022-03-26 00:00 | NITROGLYCERIN | [facility] | + + + + | 2022-04-04 00:00 | NITROGLYCERIN | [facility] | + + + + | 2022-04-06 00:00 | NITROGLYCERIN | [facility] | + + + + | 2022-04-08 00:00 | NITROGLYCERIN | [facility] | + + + + | 2022-04-13 00:00 | NITROGLYCERIN | [facility] | + + + + | 2022-04-19 00:00 | NITROGLYCERIN | [facility] | + + + + | 2022-02-28 00:00 | nitroglycerin 0.4 MG | [facility] | | | Sublingual Tablet | | + + + + | 2022-03-14 00:00 | nitroglycerin 0.4 MG | [facility] | | | Sublingual Tablet | | + + + + | 2022-03-17 00:00 | nitroglycerin 0.4 MG | [facility] | | | Sublingual Tablet | | + + + + | 2022-03-25 00:00 | nitroglycerin 0.4 MG | [facility] | | | Sublingual Tablet | | + + + + | 2022-03-26 00:00 | nitroglycerin 0.4 MG | [facility] | | | Sublingual Tablet | | + + + + | 2022-04-04 00:00 | nitroglycerin 0.4 MG | [facility] | | | Sublingual Tablet | | + + + + | 2022-04-06 00:00 | nitroglycerin 0.4 MG | [facility] | | | Sublingual Tablet | | + + + + | 2022-04-08 00:00 | nitroglycerin 0.4 MG | [facility] | | | Sublingual Tablet | | + + + + | 2022-04-13 00:00 | nitroglycerin 0.4 MG | [facility] | | | Sublingual Tablet | | + + + + | 2022-04-19 00:00 | nitroglycerin 0.4 MG | [facility] | | | Sublingual Tablet | | + + + + | 2022-01-22 00:00 | FUROSEMIDE | [facility] | + + + + | 2022-01-22 00:00 | FUROSEMIDE | [facility] | + + + + | 2022-01-22 00:00 | FUROSEMIDE | [facility] | + + + + | 2022-01-22 00:00 | FUROSEMIDE | [facility] | + + + + | 2022-01-22 00:00 | FUROSEMIDE | [facility] | + + + + | 2022-01-22 00:00 | FUROSEMIDE | [facility] | + + + + | 2022-01-22 00:00 | FUROSEMIDE | [facility] | + + + + | 2022-01-22 00:00 | FUROSEMIDE | [facility] | + + + + | 2022-01-22 00:00 | FUROSEMIDE | [facility] | + + + + | 2022-03-26 00:00 | FUROSEMIDE | [facility] | + + + + | 2022-01-22 00:00 | furosemide 20 MG Oral | [facility] | | | Tablet [Lasix] | | + + + + | 2022-03-26 00:00 | furosemide 20 MG Oral | [facility] | | | Tablet [Lasix] | | + + + + | 2018-10-06 00:00 | NEOMYCIN/POLYMYXIN B | [facility] | | | SULF/HC | | + + + + | 2018-10-06 00:00 | NEOMYCIN/POLYMYXIN B | [facility] | | | SULF/HC | | + + + + | 2018-10-06 00:00 | NEOMYCIN/POLYMYXIN B | [facility] | | | SULF/HC | | + + + + | 2018-10-06 00:00 | NEOMYCIN/POLYMYXIN B | [facility] | | | SULF/HC | | + + + + | 2018-10-06 00:00 | NEOMYCIN/POLYMYXIN B | [facility] | | | SULF/HC | | + + + + | 2018-10-06 00:00 | NEOMYCIN/POLYMYXIN B | [facility] | | | SULF/HC | | + + + + | 2018-10-06 00:00 | NEOMYCIN/POLYMYXIN B | [facility] | | | SULF/HC | | + + + + | 2018-10-06 00:00 | NEOMYCIN/POLYMYXIN B | [facility] | | | SULF/HC | | + + + + | 2018-10-06 00:00 | NEOMYCIN/POLYMYXIN B | [facility] | | | SULF/HC | | + + + + | 2018-10-06 00:00 | hydrocortisone 10 MG/ML / | [facility] | | | neomycin 3.5 MG/ML / | | | | polymyxin B 1 | | + + + + | 2014-11-22 00:00 | FLUCONAZOLE | [facility] | + + + + | 2014-11-22 00:00 | FLUCONAZOLE | [facility] | + + + + | 2014-11-22 00:00 | FLUCONAZOLE | [facility] | + + + + | 2014-11-22 00:00 | FLUCONAZOLE | [facility] | + + + + | 2014-11-22 00:00 | FLUCONAZOLE | [facility] | + + + + | 2014-11-22 00:00 | FLUCONAZOLE | [facility] | + + + + | 2014-11-22 00:00 | FLUCONAZOLE | [facility] | + + + + | 2014-11-22 00:00 | FLUCONAZOLE | [facility] [facility] | + + + + | 2014-11-22 00:00 | FLUCONAZOLE | [facility] | + + + + | 2014-11-22 00:00 | fluconazole 150 MG Oral | [facility] | | | Tablet [Diflucan] | | + + + + | 2022-01-05 00:00 | NIFEdipine | [facility] | + + + + | 2022-01-26 00:00 | NIFEdipine | [facility] | + + + + | 2022-01-29 00:00 | NIFEdipine | [facility] | + + + + | 2022-02-08 00:00 | NIFEdipine | [facility] | + + + + | 2022-02-28 00:00 | NIFEdipine | [facility] | + + + + | 2022-02-28 00:00 | NIFEdipine | [facility] | + + + + | 2022-03-14 00:00 | NIFEdipine | [facility] | + + + + | 2022-03-17 00:00 | NIFEdipine | [facility] | + + + + | 2022-03-25 00:00 | NIFEdipine | [facility] | + + + + | 2022-03-26 00:00 | NIFEdipine | [facility] | + + + + | 2022-04-04 00:00 | NIFEdipine | [facility] | + + + + | 2022-04-06 00:00 | NIFEdipine | [facility] | + + + + | 2022-04-08 00:00 | NIFEdipine | [facility] | + + + + | 2022-04-13 00:00 | NIFEdipine | [facility] | + + + + | 2022-04-19 00:00 | NIFEdipine | [facility] | + + + + | 2022-01-03 00:00 | Osmotic 24 HR nifedipine | [facility] | | | 30 MG Extended Release Oral | | | | Tablet | | + + + + | 2022-01-22 00:00 | Osmotic 24 HR nifedipine | [facility] | | | 30 MG Extended Release Oral | | | | Tablet | | + + + + | 2022-01-24 00:00 | Osmotic 24 HR nifedipine | [facility] | | | 30 MG Extended Release Oral | | | | Tablet | | + + + + | 2022-02-01 00:00 | Osmotic 24 HR nifedipine | [facility] | | | 30 MG Extended Release Oral | | | | Tablet | | + + + + | 2022-02-28 00:00 | Osmotic 24 HR nifedipine | [facility] | | | 30 MG Extended Release Oral | | | | Tablet | | + + + + | 2022-03-14 00:00 | Osmotic 24 HR nifedipine | [facility] | | | 30 MG Extended Release Oral | | | | Tablet | | + + + + | 2022-03-17 00:00 | Osmotic 24 HR nifedipine | [facility] | | | 30 MG Extended Release Oral | | | | Tablet | | + + + + | 2022-03-25 00:00 | Osmotic 24 HR nifedipine | [facility] | | | 30 MG Extended Release Oral | | | | Tablet | | + + + + | 2022-03-26 00:00 | Osmotic 24 HR nifedipine | [facility] | | | 30 MG Extended Release Oral | | | | Tablet | | + + + + | 2022-04-04 00:00 | Osmotic 24 HR nifedipine | [facility] | | | 30 MG Extended Release Oral | | | | Tablet | | + + + + | 2022-04-06 00:00 | Osmotic 24 HR nifedipine | [facility] | | | 30 MG Extended Release Oral | | | | Tablet | | + + + + | 2022-04-08 00:00 | Osmotic 24 HR nifedipine | [facility] | | | 30 MG Extended Release Oral | | | | Tablet | | + + + + | 2022-04-13 00:00 | Osmotic 24 HR nifedipine | [facility] | | | 30 MG Extended Release Oral | | | | Tablet | | + + + + | 2022-04-19 00:00 | Osmotic 24 HR nifedipine | [facility] | | | 30 MG Extended Release Oral | | | | Tablet | | + + + + | 2022-01-05 00:00 | NIFEdipine | [facility] | + + + + | 2022-01-26 00:00 | NIFEdipine | [facility] | + + + + | 2022-01-29 00:00 | NIFEdipine | [facility] | + + + + | 2022-02-08 00:00 | NIFEdipine | [facility] | + + + + | 2022-02-28 00:00 | NIFEdipine | [facility] | + + + + | 2022-02-28 00:00 | NIFEdipine | [facility] | + + + + | 2022-03-14 00:00 | NIFEdipine | [facility] | + + + + | 2022-03-17 00:00 | NIFEdipine | [facility] | + + + + | 2022-03-25 00:00 | NIFEdipine | [facility] | + + + + | 2022-03-26 00:00 | NIFEdipine | [facility] | + + + + | 2022-04-04 00:00 | NIFEdipine | [facility] | + + + + | 2022-04-06 00:00 | NIFEdipine | [facility] | + + + + | 2022-04-08 00:00 | NIFEdipine | [facility] | + + + + | 2022-04-13 00:00 | NIFEdipine | [facility] | + + + + | 2022-04-19 00:00 | NIFEdipine | [facility] | + + + + | 2022-01-03 00:00 | Osmotic 24 HR nifedipine | [facility] | | | 60 MG Extended Release Oral | | | | Tablet | | + + + + | 2022-01-22 00:00 | Osmotic 24 HR nifedipine | [facility] | | | 60 MG Extended Release Oral | | | | Tablet | | + + + + | 2022-01-24 00:00 | Osmotic 24 HR nifedipine | [facility] | | | 60 MG Extended Release Oral | | | | Tablet | | + + + + | 2022-02-01 00:00 | Osmotic 24 HR nifedipine | [facility] | | | 60 MG Extended Release Oral | | | | Tablet | | + + + + | 2022-02-28 00:00 | Osmotic 24 HR nifedipine | [facility] | | | 60 MG Extended Release Oral | | | | Tablet | | + + + + | 2022-03-14 00:00 | Osmotic 24 HR nifedipine | [facility] | | | 60 MG Extended Release Oral | | | | Tablet | | + + + + | 2022-03-17 00:00 | Osmotic 24 HR nifedipine | [facility] | | | 60 MG Extended Release Oral | | | | Tablet | | + + + + | 2022-03-25 00:00 | Osmotic 24 HR nifedipine | [facility] | | | 60 MG Extended Release Oral | | | | Tablet | | + + + + | 2022-03-26 00:00 | Osmotic 24 HR nifedipine | [facility] | | | 60 MG Extended Release Oral | | | | Tablet | | + + + + | 2022-04-04 00:00 | Osmotic 24 HR nifedipine | [facility] | | | 60 MG Extended Release Oral | | | | Tablet | | + + + + | 2022-04-06 00:00 | Osmotic 24 HR nifedipine | [facility] | | | 60 MG Extended Release Oral | | | | Tablet | | + + + + | 2022-04-08 00:00 | Osmotic 24 HR nifedipine | [facility] | | | 60 MG Extended Release Oral | | | | Tablet | | + + + + | 2022-04-13 00:00 | Osmotic 24 HR nifedipine | [facility] | | | 60 MG Extended Release Oral | | | | Tablet | | + + + + | 2022-04-19 00:00 | Osmotic 24 HR nifedipine | [facility] | | | 60 MG Extended Release Oral | | | | Tablet | | + + + + | 2016-06-17 00:00 | BENZONATATE | [facility] | + + + + | 2016-06-17 00:00 | BENZONATATE | [facility] | + + + + | 2016-06-17 00:00 | BENZONATATE | [facility] | + + + + | 2016-06-17 00:00 | BENZONATATE | [facility] | + + + + | 2016-06-17 00:00 | BENZONATATE | [facility] | + + + + | 2016-06-17 00:00 | BENZONATATE | [facility] | + + + + | 2016-06-17 00:00 | BENZONATATE | [facility] | + + + + | 2016-06-17 00:00 | BENZONATATE | [facility] | + + + + | 2016-06-17 00:00 | BENZONATATE | [facility] | + + + + | 2016-06-17 00:00 | benzonatate 100 MG Oral | [facility] | | | Capsule [Mei Perldeny] | | + + + + | 2019-09-24 00:00 | CEPHALEXIN | [facility] | + + + + | 2019-09-24 00:00 | CEPHALEXIN | [facility] | + + + + | 2019-09-24 00:00 | CEPHALEXIN | [facility] | + + + + | 2019-09-24 00:00 | CEPHALEXIN | [facility] | + + + + 2019-09-24 00:00 | CEPHALEXIN | [facility] | + + + + | 2019-09-24 00:00 | CEPHALEXIN | [facility] | + + + + | 2019-09-24 00:00 | CEPHALEXIN | [facility] | + + + + | 2019-09-24 00:00 | CEPHALEXIN | [facility] | + + + + | 2019-09-24 00:00 | CEPHALEXIN | [facility] | + + + + 2020-05-24 00:00 | CEPHALEXIN | [facility] | + + + + 2020-05-24 00:00 | CEPHALEXIN | [facility] | + + + + | 2020-05-24 00:00 | CEPHALEXIN | [facility] | + + + + | 2020-05-24 00:00 | CEPHALEXIN | [facility] | + + + + | 2020-05-24 00:00 | CEPHALEXIN | [facility] | + + + + 2020-05-24 00:00 | CEPHALEXIN | [facility] | + + + + 2020-05-24 00:00 | CEPHALEXIN | [facility] | + + + + | 2020-05-24 00:00 | CEPHALEXIN | [facility] | + + + + | 2020-05-24 00:00 | CEPHALEXIN | [facility] | + + + + | 2019-09-24 00:00 | cephalexin 500 MG Oral | [facility] | | | Capsule [Keflex] | | + + + + | 2020-05-24 00:00 | cephalexin 500 MG Oral | [facility] | | | Capsule [Keflex] | | + + + + | 2020-11-01 00:00 | AZITHROMYCIN | [facility] | + + + + | 2020-11-01 00:00 | AZITHROMYCIN | [facility] | + + + + | 2020-11-01 00:00 | AZITHROMYCIN | [facility] | + + + + | 2020-11-01 00:00 | AZITHROMYCIN | [facility] | + + + + | 2020-11-01 00:00 | AZITHROMYCIN | [facility] | + + + + | 2020-11-01 00:00 | AZITHROMYCIN | [facility] | + + + + | 2020-11-01 00:00 | AZITHROMYCIN | [facility] | + + + + | 2020-11-01 00:00 | AZITHROMYCIN | [facility] | + + + + | 2020-11-01 00:00 | AZITHROMYCIN | [facility] | + + + + | 2020-11-01 00:00 | azithromycin 250 MG Oral | [facility] | | | Tablet [Zithromax] | | + + + + | 2022-01-03 00:00 | 3 ML insulin glargine-yfgn | [facility] | | | 100 UNT/ML Pen Injector | | + + + + | 2022-01-22 00:00 | 3 ML insulin glargine-yfgn | [facility] | | | 100 UNT/ML Pen Injector | | + + + + | 2022-01-24 00:00 | 3 ML insulin glargine-yfgn | [facility] | | | 100 UNT/ML Pen Injector | | + + + + | 2022-02-01 00:00 | 3 ML insulin glargine-yfgn | [facility] | | | 100 UNT/ML Pen Injector | | + + + + | 2022-02-28 00:00 | 3 ML insulin glargine-yfgn | [facility] | | | 100 UNT/ML Pen Injector | | + + + + | 2022-03-14 00:00 | 3 ML insulin glargine-yfgn | [facility] | | | 100 UNT/ML Pen Injector | | + + + + | 2022-03-17 00:00 | 3 ML insulin glargine-yfgn | [facility] | | | 100 UNT/ML Pen Injector | | + + + + | 2022-03-25 00:00 | 3 ML insulin glargine-yfgn | [facility] | | | 100 UNT/ML Pen Injector | | + + + + | 2022-03-26 00:00 | 3 ML insulin glargine-yfgn | [facility] | | | 100 UNT/ML Pen Injector | | + + + + | 2022-04-04 00:00 | 3 ML insulin glargine-yfgn | [facility] | | | 100 UNT/ML Pen Injector | | + + + + | 2022-04-06 00:00 | 3 ML insulin glargine-yfgn | [facility] | | | 100 UNT/ML Pen Injector | | + + + + | 2022-04-08 00:00 | 3 ML insulin glargine-yfgn | [facility] | | | 100 UNT/ML Pen Injector | | + + + + | 2022-04-13 00:00 | 3 ML insulin glargine-yfgn | [facility] | | | 100 UNT/ML Pen Injector | | + + + + | 2022-04-19 00:00 | 3 ML insulin glargine-yfgn | [facility] | | | 100 UNT/ML Pen Injector | | + + + + | 2022-01-05 00:00 | Insulin Glargine-Yfgn | [facility] | + + + + | 2022-01-26 00:00 | Insulin Glargine-Yfgn | [facility] | + + + + | 2022-01-29 00:00 | Insulin Glargine-Yfgn | [facility] | + + + + | 2022-02-08 00:00 | Insulin Glargine-Yfgn | [facility] | + + + + | 2022-02-28 00:00 | Insulin Glargine-Yfgn | [facility] | + + + + | 2022-02-28 00:00 | Insulin Glargine-Yfgn | [facility] | + + + + | 2022-03-14 00:00 | Insulin Glargine-Yfgn | [facility] | + + + + | 2022-03-17 00:00 | Insulin Glargine-Yfgn | [facility] | + + + + | 2022-03-25 00:00 | Insulin Glargine-Yfgn | [facility] | + + + + | 2022-03-26 00:00 | Insulin Glargine-Yfgn | [facility] | + + + + | 2022-04-04 00:00 | Insulin Glargine-Yfgn | [facility] | + + + + | 2022-04-06 00:00 | Insulin Glargine-Yfgn | [facility] | + + + + | 2022-04-08 00:00 | Insulin Glargine-Yfgn | [facility] | + + + + | 2022-04-13 00:00 | Insulin Glargine-Yfgn | [facility] | + + + + | 2022-04-19 00:00 | Insulin Glargine-Yfgn | [facility] | + + + + | 2019-04-05 00:00 | INSULIN GLARGINE | [facility] | + + + + | 2019-04-05 00:00 | INSULIN GLARGINE | [facility] | + + + + | 2019-04-05 00:00 | INSULIN GLARGINE | [facility] | + + + + | 2019-04-05 00:00 | INSULIN GLARGINE | [facility] | + + + + | 2019-04-05 00:00 | INSULIN GLARGINE | [facility] | + + + + | 2019-04-05 00:00 | INSULIN GLARGINE | [facility] | + + + + | 2019-04-05 00:00 | INSULIN GLARGINE | [facility] | + + + + | 2019-04-05 00:00 | INSULIN GLARGINE | [facility] | + + + + | 2019-04-05 00:00 | INSULIN GLARGINE | [facility] | + + + + | 2019-04-05 00:00 | insulin glargine 100 | [facility] | | | UNT/ML Injectable Solution | | | | [Lantus] | | + + + + | 2022-01-05 00:00 | GABAPENTIN | [facility] | + + + + | 2022-01-26 00:00 | GABAPENTIN | [facility] | + + + + | 2022-01-29 00:00 | GABAPENTIN | [facility] | + + + + | 2022-02-08 00:00 | GABAPENTIN | [facility] | + + + + | 2022-02-28 00:00 | GABAPENTIN | [facility] | + + + + | 2022-02-28 00:00 | GABAPENTIN | [facility] | + + + + | 2022-03-14 00:00 | GABAPENTIN | [facility] | + + + + | 2022-03-17 00:00 | GABAPENTIN | [facility] | + + + + | 2022-03-25 00:00 | GABAPENTIN | [facility] | + + + + | 2022-03-26 00:00 | GABAPENTIN | [facility] | + + + + | 2022-04-04 00:00 | GABAPENTIN | [facility] | + + + + | 2022-04-06 00:00 | GABAPENTIN | [facility] | + + + + | 2022-04-08 00:00 | GABAPENTIN | [facility] | + + + + | 2022-04-13 00:00 | GABAPENTIN | [facility] | + + + + | 2022-04-19 00:00 | GABAPENTIN | [facility] | + + + + | 2022-01-03 00:00 | gabapentin 300 MG Oral | [facility] | | | Capsule | | + + + + | 2022-01-22 00:00 | gabapentin 300 MG Oral | [facility] | | | Capsule | | + + + + | 2022-01-24 00:00 | gabapentin 300 MG Oral | [facility] | | | Capsule | | + + + + | 2022-02-01 00:00 | gabapentin 300 MG Oral | [facility] | | | Capsule | | + + + + | 2022-02-28 00:00 | gabapentin 300 MG Oral | [facility] | | | Capsule | | + + + + | 2022-03-14 00:00 | gabapentin 300 MG Oral | [facility] | | | Capsule | | + + + + | 2022-03-17 00:00 | gabapentin 300 MG Oral | [facility] | | | Capsule | | + + + + | 2022-03-25 00:00 | gabapentin 300 MG Oral | [facility] | | | Capsule | | + + + + | 2022-03-26 00:00 | gabapentin 300 MG Oral | [facility] | | | Capsule | | + + + + | 2022-04-04 00:00 | gabapentin 300 MG Oral | [facility] | | | Capsule | | + + + + | 2022-04-06 00:00 | gabapentin 300 MG Oral | [facility] | | | Capsule | | + + + + | 2022-04-08 00:00 | gabapentin 300 MG Oral | [facility] | | | Capsule | | + + + + | 2022-04-13 00:00 | gabapentin 300 MG Oral | [facility] | | | Capsule | | + + + + | 2022-04-19 00:00 | gabapentin 300 MG Oral | [facility] | | | Capsule | | + + + + | 2022-01-05 00:00 | NPH, HUMAN INSULIN | [facility] | | | ISOPHANE | | + + + + | 2022-01-26 00:00 | NPH, HUMAN INSULIN | [facility] | | | ISOPHANE | | + + + + | 2022-01-29 00:00 | NPH, HUMAN INSULIN | [facility] | | | ISOPHANE | | + + + + | 2022-02-08 00:00 | NPH, HUMAN INSULIN | [facility] | | | ISOPHANE | | + + + + | 2022-02-28 00:00 | NPH, HUMAN INSULIN | [facility] | | | ISOPHANE | | + + + + | 2022-02-28 00:00 | NPH, HUMAN INSULIN | [facility] | | | ISOPHANE | | + + + + | 2022-03-14 00:00 | NPH, HUMAN INSULIN | [facility] | | | ISOPHANE | | + + + + | 2022-03-17 00:00 | NPH, HUMAN INSULIN | [facility] | | | ISOPHANE | | + + + + | 2022-03-25 00:00 | NPH, HUMAN INSULIN | [facility] | | | ISOPHANE | | + + + + | 2022-03-26 00:00 | NPH, HUMAN INSULIN | [facility] | | | ISOPHANE | | + + + + | 2022-04-04 00:00 | NPH, HUMAN INSULIN | [facility] | | | ISOPHANE | | + + + + | 2022-04-06 00:00 | NPH, HUMAN INSULIN | [facility] | | | ISOPHANE | | + + + + | 2022-04-08 00:00 | NPH, HUMAN INSULIN | [facility] | | | ISOPHANE | | + + + + | 2022-04-13 00:00 | NPH, HUMAN INSULIN | [facility] | | | ISOPHANE | | + + + + | 2022-04-19 00:00 | NPH, HUMAN INSULIN | [facility] | | | ISOPHANE | | + + + + | 2022-01-03 00:00 | insulin isophane, human | [facility] | | | 100 UNT/ML Injectable | | | | Suspension [Hu | | + + + + | 2022-01-22 00:00 | insulin isophane, human | [facility] | | | 100 UNT/ML Injectable | | | | Suspension [Hu | | + + + + | 2022-01-24 00:00 | insulin isophane, human | [facility] | | | 100 UNT/ML Injectable | | | | Suspension [Hu | | + + + + | 2022-02-01 00:00 | insulin isophane, human | [facility] | | | 100 UNT/ML Injectable | | | | Suspension [Hu | | + + + + | 2022-02-28 00:00 | insulin isophane, human | [facility] | | | 100 UNT/ML Injectable | | | | Suspension [Hu | | + + + + | 2022-03-14 00:00 | insulin isophane, human | [facility] | | | 100 UNT/ML Injectable | | | | Suspension [Hu | | + + + + | 2022-03-17 00:00 | insulin isophane, human | [facility] | | | 100 UNT/ML Injectable | | | | Suspension [Hu | | + + + + | 2022-03-25 00:00 | insulin isophane, human | [facility] | | | 100 UNT/ML Injectable | | | | Suspension [Hu | | + + + + | 2022-03-26 00:00 | insulin isophane, human | [facility] | | | 100 UNT/ML Injectable | | | | Suspension [Hu | | + + + + | 2022-04-04 00:00 | insulin isophane, human | [facility] | | | 100 UNT/ML Injectable | | | | Suspension [Hu | | + + + + | 2022-04-06 00:00 | insulin isophane, human | [facility] | | | 100 UNT/ML Injectable | | | | Suspension [Hu | | + + + + | 2022-04-08 00:00 | insulin isophane, human | [facility] | | | 100 UNT/ML Injectable | | | | Suspension [Hu | | + + + + | 2022-04-13 00:00 | insulin isophane, human | [facility] | | | 100 UNT/ML Injectable | | | | Suspension [Hu | | + + + + | 2022-04-19 00:00 | insulin isophane, human | [facility] | | | 100 UNT/ML Injectable | | | | Suspension [Hu | | + + + + | 2019-12-16 00:00 | LISINOPRIL | [facility] | + + + + | 2019-12-16 00:00 | LISINOPRIL | [facility] | + + + + | 2019-12-16 00:00 | LISINOPRIL | [facility] | + + + + | 2019-12-16 00:00 | LISINOPRIL | [facility] | + + + + | 2019-12-16 00:00 | LISINOPRIL | [facility] | + + + + | 2019-12-16 00:00 | LISINOPRIL | [facility] | + + + + | 2019-12-16 00:00 | LISINOPRIL | [facility] | + + + + | 2019-12-16 00:00 | LISINOPRIL | [facility] | + + + + | 2019-12-16 00:00 | LISINOPRIL | [facility] | + + + + | 2019-12-16 00:00 | lisinopril 5 MG Oral | [facility] | | | Tablet | | + + + + | 2020-11-01 00:00 | predniSONE | [facility] | + + + + | 2020-11-01 00:00 | predniSONE | [facility] | + + + + | 2020-11-01 00:00 | predniSONE | [facility] | + + + + | 2020-11-01 00:00 | predniSONE | [facility] | + + + + | 2020-11-01 00:00 | predniSONE | [facility] | + + + + | 2020-11-01 00:00 | predniSONE | [facility] | + + + + | 2020-11-01 00:00 | predniSONE | [facility] | + + + + | 2020-11-01 00:00 | predniSONE | [facility] | + + + + | 2020-11-01 00:00 | predniSONE | [facility] | + + + + | 2020-11-01 00:00 | prednisone 20 MG Oral | [facility] | | | Tablet | | + + + + | 2022-01-05 00:00 | LISINOPRIL | [facility] | + + + + | 2022-01-26 00:00 | LISINOPRIL | [facility] | + + + + | 2022-01-29 00:00 | LISINOPRIL | [facility] | + + + + | 2022-02-08 00:00 | LISINOPRIL | [facility] | + + + + | 2022-02-28 00:00 | LISINOPRIL | [facility] | + + + + | 2022-02-28 00:00 | LISINOPRIL | [facility] | + + + + | 2022-03-14 00:00 | LISINOPRIL | [facility] | + + + + | 2022-03-17 00:00 | LISINOPRIL | [facility] | + + + + | 2022-03-25 00:00 | LISINOPRIL | [facility] | + + + + | 2022-03-26 00:00 | LISINOPRIL | [facility] | + + + + | 2022-04-04 00:00 | LISINOPRIL | [facility] | + + + + | 2022-04-06 00:00 | LISINOPRIL | [facility] | + + + + | 2022-04-08 00:00 | LISINOPRIL | [facility] | + + + + | 2022-04-13 00:00 | LISINOPRIL | [facility] | + + + + | 2022-04-19 00:00 | LISINOPRIL | [facility] | + + + + | 2022-01-03 00:00 | lisinopril 10 MG Oral | [facility] | | | Tablet | | + + + + | 2022-01-22 00:00 | lisinopril 10 MG Oral | [facility] | | | Tablet | | + + + + | 2022-01-24 00:00 | lisinopril 10 MG Oral | [facility] | | | Tablet | | + + + + | 2022-02-01 00:00 | lisinopril 10 MG Oral | [facility] | | | Tablet | | + + + + | 2022-02-28 00:00 | lisinopril 10 MG Oral | [facility] | | | Tablet | | + + + + | 2022-03-14 00:00 | lisinopril 10 MG Oral | [facility] | | | Tablet | | + + + + | 2022-03-17 00:00 | lisinopril 10 MG Oral | [facility] | | | Tablet | | + + + + | 2022-03-25 00:00 | lisinopril 10 MG Oral | [facility] | | | Tablet | | + + + + | 2022-03-26 00:00 | lisinopril 10 MG Oral | [facility] | | | Tablet | | + + + + | 2022-04-04 00:00 | lisinopril 10 MG Oral | [facility] | | | Tablet | | + + + + | 2022-04-06 00:00 | lisinopril 10 MG Oral | [facility] | | | Tablet | | + + + + | 2022-04-08 00:00 | lisinopril 10 MG Oral | [facility] | | | Tablet | | + + + + | 2022-04-13 00:00 | lisinopril 10 MG Oral | [facility] | | | Tablet | | + + + + | 2022-04-19 00:00 | lisinopril 10 MG Oral | [facility] | | | Tablet | | + + + + | 2022-01-05 00:00 | FENOFIBRATE | [facility] | + + + + | 2022-01-26 00:00 | FENOFIBRATE | [facility] | + + + + | 2022-01-29 00:00 | FENOFIBRATE | [facility] | + + + + | 2022-02-08 00:00 | FENOFIBRATE | [facility] | + + + + | 2022-02-28 00:00 | FENOFIBRATE | [facility] | + + + + | 2022-02-28 00:00 | FENOFIBRATE | [facility] | + + + + | 2022-03-14 00:00 | FENOFIBRATE | [facility] | + + + + | 2022-03-17 00:00 | FENOFIBRATE | [facility] | + + + + | 2022-03-25 00:00 | FENOFIBRATE | [facility] | + + + + | 2022-03-26 00:00 | FENOFIBRATE | [facility] | + + + + | 2022-04-04 00:00 | FENOFIBRATE | [facility] | + + + + | 2022-04-06 00:00 | FENOFIBRATE | [facility] | + + + + | 2022-04-08 00:00 | FENOFIBRATE | [facility] | + + + + | 2022-04-13 00:00 | FENOFIBRATE | [facility] | + + + + | 2022-04-19 00:00 | FENOFIBRATE | [facility] | + + + + | 2022-01-03 00:00 | fenofibrate 54 MG Oral | [facility] | | | Tablet | | + + + + | 2022-01-22 00:00 | fenofibrate 54 MG Oral | [facility] | | | Tablet | | + + + + | 2022-01-24 00:00 | fenofibrate 54 MG Oral | [facility] | | | Tablet | | + + + + | 2022-02-01 00:00 | fenofibrate 54 MG Oral | [facility] | | | Tablet | | + + + + | 2022-02-28 00:00 | fenofibrate 54 MG Oral | [facility] | | | Tablet | | + + + + | 2022-03-14 00:00 | fenofibrate 54 MG Oral | [facility] | | | Tablet | | + + + + | 2022-03-17 00:00 | fenofibrate 54 MG Oral | [facility] | | | Tablet | | + + + + | 2022-03-25 00:00 | fenofibrate 54 MG Oral | [facility] | | | Tablet | | + + + + | 2022-03-26 00:00 | fenofibrate 54 MG Oral | [facility] | | | Tablet | | + + + + | 2022-04-04 00:00 | fenofibrate 54 MG Oral | [facility] | | | Tablet | | + + + + | 2022-04-06 00:00 | fenofibrate 54 MG Oral | [facility] | | | Tablet | | + + + + | 2022-04-08 00:00 | fenofibrate 54 MG Oral | [facility] | | | Tablet | | + + + + | 2022-04-13 00:00 | fenofibrate 54 MG Oral | [facility] | | | Tablet | | + + + + | 2022-04-19 00:00 | fenofibrate 54 MG Oral | [facility] | | | Tablet | | + + + + | 2022-01-05 00:00 | INSULIN ASPART | [facility] | + + + + | 2022-01-26 00:00 | INSULIN ASPART | [facility] | + + + + | 2022-01-29 00:00 | INSULIN ASPART | [facility] | + + + + | 2022-02-08 00:00 | INSULIN ASPART | [facility] | + + + + | 2022-02-28 00:00 | INSULIN ASPART | [facility] | + + + + | 2022-02-28 00:00 | INSULIN ASPART | [facility] | + + + + | 2022-03-14 00:00 | INSULIN ASPART | [facility] | + + + + | 2022-03-17 00:00 | INSULIN ASPART | [facility] | + + + + | 2022-03-25 00:00 | INSULIN ASPART | [facility] | + + + + | 2022-03-26 00:00 | INSULIN ASPART | [facility] | + + + + | 2022-04-04 00:00 | INSULIN ASPART | [facility] | + + + + | 2022-04-06 00:00 | INSULIN ASPART | [facility] | + + + + | 2022-04-08 00:00 | INSULIN ASPART | [facility] | + + + + | 2022-04-13 00:00 | INSULIN ASPART | [facility] | + + + + | 2022-04-19 00:00 | INSULIN ASPART | [facility] | + + + + | 2022-01-03 00:00 | insulin aspart, human 100 | [facility] | | | UNT/ML Injectable Solution | | | | [NovoLo | | + + + + | 2022-01-22 00:00 | insulin aspart, human 100 | [facility] | | | UNT/ML Injectable Solution | | | | [NovoLo | | + + + + | 2022-01-24 00:00 | insulin aspart, human 100 | [facility] | | | UNT/ML Injectable Solution | | | | [NovoLo | | + + + + | 2022-02-01 00:00 | insulin aspart, human 100 | [facility] | | | UNT/ML Injectable Solution | | | | [NovoLo | | + + + + | 2022-02-28 00:00 | insulin aspart, human 100 | [facility] | | | UNT/ML Injectable Solution | | | | [NovoLo | | + + + + | 2022-03-14 00:00 | insulin aspart, human 100 | [facility] | | | UNT/ML Injectable Solution | | | | [NovoLo | | + + + + | 2022-03-17 00:00 | insulin aspart, human 100 | [facility] | | | UNT/ML Injectable Solution | | | | [NovoLo | | + + + + | 2022-03-25 00:00 | insulin aspart, human 100 | [facility] | | | UNT/ML Injectable Solution | | | | [NovoLo | | + + + + | 2022-03-26 00:00 | insulin aspart, human 100 | [facility] | | | UNT/ML Injectable Solution | | | | [NovoLo | | + + + + | 2022-04-04 00:00 | insulin aspart, human 100 | [facility] | | | UNT/ML Injectable Solution | | | | [NovoLo | | + + + + | 2022-04-06 00:00 | insulin aspart, human 100 | [facility] | | | UNT/ML Injectable Solution | | | | [NovoLo | | + + + + | 2022-04-08 00:00 | insulin aspart, human 100 | [facility] | | | UNT/ML Injectable Solution | | | | [NovoLo | | + + + + | 2022-04-13 00:00 | insulin aspart, human 100 | [facility] | | | UNT/ML Injectable Solution | | | | [NovoLo | | + + + + | 2022-04-19 00:00 | insulin aspart, human 100 | [facility] | | | UNT/ML Injectable Solution | | | | [NovoLo | | + + + + | 2022-01-22 00:00 | nitrofurantoin, | [facility] | | | macrocrystals 25 MG / | | | | nitrofurantoin, monohy | | + + + + | 2022-01-05 00:00 | ATORVASTATIN CALCIUM | [facility] | + + + + | 2022-01-26 00:00 | ATORVASTATIN CALCIUM | [facility] | + + + + | 2022-01-29 00:00 | ATORVASTATIN CALCIUM | [facility] | + + + + | 2022-02-08 00:00 | ATORVASTATIN CALCIUM | [facility] | + + + + | 2022-02-28 00:00 | ATORVASTATIN CALCIUM | [facility] | + + + + | 2022-02-28 00:00 | ATORVASTATIN CALCIUM | [facility] | + + + + | 2022-03-14 00:00 | ATORVASTATIN CALCIUM | [facility] | + + + + | 2022-03-17 00:00 | ATORVASTATIN CALCIUM | [facility] | + + + + | 2022-03-25 00:00 | ATORVASTATIN CALCIUM | [facility] | + + + + | 2022-03-26 00:00 | ATORVASTATIN CALCIUM | [facility] | + + + + | 2022-04-04 00:00 | ATORVASTATIN CALCIUM | [facility] | + + + + | 2022-04-06 00:00 | ATORVASTATIN CALCIUM | [facility] | + + + + | 2022-04-08 00:00 | ATORVASTATIN CALCIUM | [facility] | + + + + | 2022-04-13 00:00 | ATORVASTATIN CALCIUM | [facility] | + + + + | 2022-04-19 00:00 | ATORVASTATIN CALCIUM | [facility] | + + + + | 2022-01-03 00:00 | atorvastatin 40 MG Oral | [facility] | | | Tablet | | + + + + | 2022-01-22 00:00 | atorvastatin 40 MG Oral | [facility] | | | Tablet | | + + + + | 2022-01-24 00:00 | atorvastatin 40 MG Oral | [facility] | | | Tablet | | + + + + | 2022-02-01 00:00 | atorvastatin 40 MG Oral | [facility] | | | Tablet | | + + + + | 2022-02-28 00:00 | atorvastatin 40 MG Oral | [facility] | | | Tablet | | + + + + | 2022-03-14 00:00 | atorvastatin 40 MG Oral | [facility] | | | Tablet | | + + + + | 2022-03-17 00:00 | atorvastatin 40 MG Oral | [facility] | | | Tablet | | + + + + | 2022-03-25 00:00 | atorvastatin 40 MG Oral | [facility] | | | Tablet | | + + + + | 2022-03-26 00:00 | atorvastatin 40 MG Oral | [facility] | | | Tablet | | + + + + | 2022-04-04 00:00 | atorvastatin 40 MG Oral | [facility] | | | Tablet | | + + + + | 2022-04-06 00:00 | atorvastatin 40 MG Oral | [facility] | | | Tablet | | + + + + | 2022-04-08 00:00 | atorvastatin 40 MG Oral | [facility] | | | Tablet | | + + + + | 2022-04-13 00:00 | atorvastatin 40 MG Oral | [facility] | | | Tablet | | + + + + | 2022-04-19 00:00 | atorvastatin 40 MG Oral | [facility] | | | Tablet | | + + + + | 2022-01-05 00:00 | PYRIDOXINE HCL | [facility] | + + + + | 2022-01-26 00:00 | PYRIDOXINE HCL | [facility] | + + + + | 2022-01-29 00:00 | PYRIDOXINE HCL | [facility] | + + + + | 2022-02-08 00:00 | PYRIDOXINE HCL | [facility] | + + + + | 2022-02-28 00:00 | PYRIDOXINE HCL | [facility] | + + + + | 2022-02-28 00:00 | PYRIDOXINE HCL | [facility] | + + + + | 2022-03-14 00:00 | PYRIDOXINE HCL | [facility] | + + + + | 2022-03-17 00:00 | PYRIDOXINE HCL | [facility] | + + + + | 2022-03-25 00:00 | PYRIDOXINE HCL | [facility] | + + + + | 2022-03-26 00:00 | PYRIDOXINE HCL | [facility] | + + + + | 2022-04-04 00:00 | PYRIDOXINE HCL | [facility] | + + + + | 2022-04-06 00:00 | PYRIDOXINE HCL | [facility] | + + + + | 2022-04-08 00:00 | PYRIDOXINE HCL | [facility] | + + + + | 2022-04-13 00:00 | PYRIDOXINE HCL | [facility] | + + + + | 2022-04-19 00:00 | PYRIDOXINE HCL | [facility] | + + + + | 2022-01-03 00:00 | vitamin B6 50 MG Oral | [facility] | | | Tablet | | + + + + | 2022-01-22 00:00 | vitamin B6 50 MG Oral | [facility] | | | Tablet | | + + + + | 2022-01-24 00:00 | vitamin B6 50 MG Oral | [facility] | | | Tablet | | + + + + | 2022-02-01 00:00 | vitamin B6 50 MG Oral | [facility] | | | Tablet | | + + + + | 2022-02-28 00:00 | vitamin B6 50 MG Oral | [facility] | | | Tablet | | + + + + | 2022-03-14 00:00 | vitamin B6 50 MG Oral | [facility] | | | Tablet | | + + + + | 2022-03-17 00:00 | vitamin B6 50 MG Oral | [facility] | | | Tablet | | + + + + | 2022-03-25 00:00 | vitamin B6 50 MG Oral | [facility] | | | Tablet | | + + + + | 2022-03-26 00:00 | vitamin B6 50 MG Oral | [facility] | | | Tablet | | + + + + | 2022-04-04 00:00 | vitamin B6 50 MG Oral | [facility] | | | Tablet | | + + + + | 2022-04-06 00:00 | vitamin B6 50 MG Oral | [facility] | | | Tablet | | + + + + | 2022-04-08 00:00 | vitamin B6 50 MG Oral | [facility] | | | Tablet | | + + + + | 2022-04-13 00:00 | vitamin B6 50 MG Oral | [facility] | | | Tablet | | + + + + | 2022-04-19 00:00 | vitamin B6 50 MG Oral | [facility] | | | Tablet | | + + + + | 2017-10-04 00:00 | TRAMADOL HCL | [facility] | + + + + | 2017-10-04 00:00 | TRAMADOL HCL | [facility] | + + + + | 2017-10-04 00:00 | TRAMADOL HCL | [facility] | + + + + | 2017-10-04 00:00 | TRAMADOL HCL | [facility] | + + + + | 2017-10-04 00:00 | TRAMADOL HCL | [facility] | + + + + | 2017-10-04 00:00 | TRAMADOL HCL | [facility] | + + + + | 2017-10-04 00:00 | TRAMADOL HCL | [facility] | + + + + | 2017-10-04 00:00 | TRAMADOL HCL | [facility] | + + + + | 2017-10-04 00:00 | TRAMADOL HCL | [facility] | + + + + | 2018-10-18 00:00 | TRAMADOL HCL | [facility] | + + + + | 2018-10-18 00:00 | TRAMADOL HCL | [facility] | + + + + | 2018-10-18 00:00 | TRAMADOL HCL | [facility] | + + + + | 2018-10-18 00:00 | TRAMADOL HCL | [facility] | + + + + | 2018-10-18 00:00 | TRAMADOL HCL | [facility] | + + + + | 2018-10-18 00:00 | TRAMADOL HCL | [facility] | + + + + | 2018-10-18 00:00 | TRAMADOL HCL | [facility] | + + + + | 2018-10-18 00:00 | TRAMADOL HCL | [facility] | + + + + | 2018-10-18 00:00 | TRAMADOL HCL | [facility] | + + + + | 2017-10-04 00:00 | tramadol hydrochloride 50 | [facility] | | | MG Oral Tablet | | + + + + | 2018-10-18 00:00 | tramadol hydrochloride 50 | [facility] | | | MG Oral Tablet | | + + + + | 2022-01-03 00:00 | 3 ML insulin glargine 100 | [facility] | | | UNT/ML Pen Injector | | | | [Lantus] | | + + + + | 2022-01-22 00:00 | 3 ML insulin glargine 100 | [facility] | | | UNT/ML Pen Injector | | | | [Lantus] | | + + + + | 2022-01-24 00:00 | 3 ML insulin glargine 100 | [facility] | | | UNT/ML Pen Injector | | | | [Lantus] | | + + + + | 2022-02-01 00:00 | 3 ML insulin glargine 100 | [facility] | | | UNT/ML Pen Injector | | | | [Lantus] | | + + + + | 2022-02-28 00:00 | 3 ML insulin glargine 100 | [facility] | | | UNT/ML Pen Injector | | | | [Lantus] | | + + + + | 2022-03-14 00:00 | 3 ML insulin glargine 100 | [facility] | | | UNT/ML Pen Injector | | | | [Lantus] | | + + + + | 2022-03-17 00:00 | 3 ML insulin glargine 100 | [facility] | | | UNT/ML Pen Injector | | | | [Lantus] | | + + + + | 2022-03-25 00:00 | 3 ML insulin glargine 100 | [facility] | | | UNT/ML Pen Injector | | | | [Lantus] | | + + + + | 2022-03-26 00:00 | 3 ML insulin glargine 100 | [facility] | | | UNT/ML Pen Injector | | | | [Lantus] | | + + + + | 2022-04-04 00:00 | 3 ML insulin glargine 100 | [facility] | | | UNT/ML Pen Injector | | | | [Lantus] | | + + + + | 2022-04-06 00:00 | 3 ML insulin glargine 100 | [facility] | | | UNT/ML Pen Injector | | | | [Lantus] | | + + + + | 2022-04-08 00:00 | 3 ML insulin glargine 100 | [facility] | | | UNT/ML Pen Injector | | | | [Lantus] | | + + + + | 2022-04-13 00:00 | 3 ML insulin glargine 100 | [facility] | | | UNT/ML Pen Injector | | | | [Lantus] | | + + + + | 2022-04-19 00:00 | 3 ML insulin glargine 100 | [facility] | | | UNT/ML Pen Injector | | | | [Lantus] | | + + + + | 2022-01-05 00:00 | INSULIN | [facility] | | | KRISTOFER HERRON | | + + + + | 2022-01-26 00:00 | INSULIN | [facility] | | | GLARGINE,HUM.REC.ANLOG | | + + + + | 2022-01-29 00:00 | INSULIN | [facility] | | | GLARGINE,HUM.REC.ANLOG | | + + + + | 2022-02-08 00:00 | INSULIN | [facility] | | | GLARGINE,HUM.REC.ANLOG | | + + + + | 2022-02-28 00:00 | INSULIN | [facility] | | | GLARGINE,HUM.REC.ANLOG | | + + + + | 2022-02-28 00:00 | INSULIN | [facility] | | | GLARGINE,HUM.REC.ANLOG | | + + + + | 2022-03-14 00:00 | INSULIN | [facility] | | | GLAVAUGHNE,HUM.REC.ANLOG | | + + + + | 2022-03-17 00:00 | INSULIN | [facility] | | | GLAPRAVEENA,HUM.REC.ANLOG | | + + + + | 2022-03-25 00:00 | INSULIN | [facility] | | | GLAPRAVEENA,HUM.REC.ANLOG | | + + + + | 2022-03-26 00:00 | INSULIN | [facility] | | | GLARGINE,HUM.REC.ANLOG | | + + + + | 2022-04-04 00:00 | INSULIN | [facility] | | | [facility] | | + + + + | 2022-04-06 00:00 | INSULIN | [facility] | | | [facility] | | + + + + | 2022-04-08 00:00 | INSULIN | [facility] | | | HUM. GOPALRECIvanaANLOG | | + + + + | 2022-04-13 00:00 | INSULIN | [facility] | | | GOPALHUMIvanaRECIvanaANLOG | | + + + + | 2022-04-19 00:00 | INSULIN | [facility] | | | KRISTOFER HERRON | | + + + + | 2013-12-03 00:00 | | [facility] | | | SULFAMETHOXAZOLE/TRIMETHOPR | | | | IM DS | | + + + + | 2013-12-03 00:00 | | [facility] | | | SULFAMETHOXAZOLE/TRIMETHOPR | | | | IM DS | | + + + + | 2013-12-03 00:00 | | [facility] | | | SULFAMETHOXAZOLE/TRIMETHOPR | | | | IM DS | | + + + + | 2013-12-03 00:00 | | [facility] | | | SULFAMETHOXAZOLE/TRIMETHOPR | | | | IM DS | | + + + + | 2013-12-03 00:00 | | [facility] | | | SULFAMETHOXAZOLE/TRIMETHOPR | | | | IM DS | | + + + + | 2013-12-03 00:00 | | [facility] | | | SULFAMETHOXAZOLE/TRIMETHOPR | | | | IM DS | | + + + + | 2013-12-03 00:00 | | [facility] | | | SULFAMETHOXAZOLE/TRIMETHOPR | | | | IM DS | | + + + + | 2013-12-03 00:00 | | [facility] | | | SULFAMETHOXAZOLE/TRIMETHOPR | | | | IM DS | | + + + + | 2013-12-03 00:00 | | [facility] | | | SULFAMETHOXAZOLE/TRIMETHOPR | | | | IM DS | | + + + + | 2017-10-04 00:00 | | [facility] | | | SULFAMETHOXAZOLE/TRIMETHOPR | | | | IM DS | | + + + + | 2017-10-04 00:00 | | [facility] | | | SULFAMETHOXAZOLE/TRIMETHOPR | | | | IM DS | | + + + + | 2017-10-04 00:00 | | [facility] | | | SULFAMETHOXAZOLE/TRIMETHOPR | | | | IM DS | | + + + + | 2017-10-04:00 | | [facility] | | | SULFAMETHOXAZOLE/TRIMETHOPR | | | | IM DS | | + + + + | 2017-10-04 00:00 | | [facility] | | | SULFAMETHOXAZOLE/TRIMETHOPR | | | | IM DS | | + + + + | 2017-10-04 00:00 | | [facility] | | | SULFAMETHOXAZOLE/TRIMETHOPR | | | | IM DS | | + + + + | 2017-10-04 00:00 | | [facility] | | | SULFAMETHOXAZOLE/TRIMETHOPR | | | | IM DS | | + + + + | 2017-10-04 00:00 | | [facility] | | | SULFAMETHOXAZOLE/TRIMETHOPR | | | | IM DS | | + + + + | 2017-10-04 00:00 | | [facility] | | | SULFAMETHOXAZOLE/TRIMETHOPR | | | | IM DS | | + + + + | 2020-02-22 00:00 | | [facility] | | | SULFAMETHOXAZOLE/TRIMETHOPR | | | | IM DS | | + + + + | 2020-02-22 00:00 | | [facility] | | | SULFAMETHOXAZOLE/TRIMETHOPR | | | | IM DS | | + + + + | 2020-02-22 00:00 | | [facility] | | | SULFAMETHOXAZOLE/TRIMETHOPR | | | | IM DS | | + + + + | 2020-02-22 00:00 | | [facility] | | | SULFAMETHOXAZOLE/TRIMETHOPR | | | | IM DS | | + + + + | 2020-02-22 00:00 | | [facility] | | | SULFAMETHOXAZOLE/TRIMETHOPR | | | | IM DS | | + + + + | 2020-02-22 00:00 | | [facility] | | | SULFAMETHOXAZOLE/TRIMETHOPR | | | | IM DS | | + + + + | 2020-02-22 00:00 | | [facility] | | | SULFAMETHOXAZOLE/TRIMETHOPR | | | | IM DS | | + + + + | 2020-02-22 00:00 | | [facility] | | | SULFAMETHOXAZOLE/TRIMETHOPR | | | | IM DS | | + + + + | 2020-02-22 00:00 | | [facility] | | | SULFAMETHOXAZOLE/TRIMETHOPR | | | | IM DS | | + + + + | 2013-12-03 00:00 | sulfamethoxazole 800 MG / | [facility] | | | trimethoprim 160 MG Oral | | | | Tablet [B | | + + + + | 2017-10-04 00:00 | sulfamethoxazole 800 MG / | [facility] | | | trimethoprim 160 MG Oral | | | | Tablet [B | | + + + + | 2020-02-22 00:00 | sulfamethoxazole 800 MG / | [facility] | | | trimethoprim 160 MG Oral | | | | Tablet [B | | + + + + | 2022-01-05 00:00 | HYDROCODONE | [facility] | | | BIT/ACETAMINOPHEN | | + + + + | 2022-01-26 00:00 | HYDROCODONE | [facility] | | | BIT/ACETAMINOPHEN | | + + + + | 2022-01-29 00:00 | HYDROCODONE | [facility] | | | BIT/ACETAMINOPHEN | | + + + + | 2022-02-08 00:00 | HYDROCODONE | [facility] | | | BIT/ACETAMINOPHEN | | + + + + | 2022-02-28 00:00 | HYDROCODONE | [facility] | | | BIT/ACETAMINOPHEN | | + + + + | 2022-02-28 00:00 | HYDROCODONE | [facility] | | | BIT/ACETAMINOPHEN | | + + + + | 2022-03-14 00:00 | HYDROCODONE | [facility] | | | BIT/ACETAMINOPHEN | | + + + + | 2022-03-17 00:00 | HYDROCODONE | [facility] | | | BIT/ACETAMINOPHEN | | + + + + | 2022-03-25 00:00 | HYDROCODONE | [facility] | | | BIT/ACETAMINOPHEN | | + + + + | 2022-03-26 00:00 | HYDROCODONE | [facility] | | | BIT/ACETAMINOPHEN | | + + + + | 2022-04-04 00:00 | HYDROCODONE | [facility] | | | BIT/ACETAMINOPHEN | | + + + + | 2022-04-06 00:00 | HYDROCODONE | [facility] | | | BIT/ACETAMINOPHEN | | + + + + | 2022-04-08 00:00 | HYDROCODONE | [facility] | | | BIT/ACETAMINOPHEN | | + + + + | 2022-04-13 00:00 | HYDROCODONE | [facility] | | | BIT/ACETAMINOPHEN | | + + + + | 2022-04-19 00:00 | HYDROCODONE | [facility] | | | BIT/ACETAMINOPHEN | | + + + + | 2022-01-03 00:00 | acetaminophen 325 MG / | [facility] | | | hydrocodone bitartrate 10 | | | | MG Oral Tab | | + + + + | 2022-01-22 00:00 | acetaminophen 325 MG / | [facility] | | | hydrocodone bitartrate 10 | | | | MG Oral Tab | | + + + + | 2022-01-24 00:00 | acetaminophen 325 MG / | [facility] | | | hydrocodone bitartrate 10 | | | | MG Oral Tab | | + + + + | 2022-02-01 00:00 | acetaminophen 325 MG / | [facility] | | | hydrocodone bitartrate 10 | | | | MG Oral Tab | | + + + + | 2022-02-28 00:00 | acetaminophen 325 MG / | [facility] | | | hydrocodone bitartrate 10 | | | | MG Oral Tab | | + + + + | 2022-03-14 00:00 | acetaminophen 325 MG / | [facility] | | | hydrocodone bitartrate 10 | | | | MG Oral Tab | | + + + + | 2022-03-17 00:00 | acetaminophen 325 MG / | [facility] | | | hydrocodone bitartrate 10 | | | | MG Oral Tab | | + + + + | 2022-03-25 00:00 | acetaminophen 325 MG / | [facility] | | | hydrocodone bitartrate 10 | | | | MG Oral Tab | | + + + + | 2022-03-26 00:00 | acetaminophen 325 MG / | [facility] | | | hydrocodone bitartrate 10 | | | | MG Oral Tab | | + + + + | 2022-04-04 00:00 | acetaminophen 325 MG / | [facility] | | | hydrocodone bitartrate 10 | | | | MG Oral Tab | | + + + + | 2022-04-06 00:00 | acetaminophen 325 MG / | [facility] | | | hydrocodone bitartrate 10 | | | | MG Oral Tab | | + + + + | 2022-04-08 00:00 | acetaminophen 325 MG / | [facility] | | | hydrocodone bitartrate 10 | | | | MG Oral Tab | | + + + + | 2022-04-13 00:00 | acetaminophen 325 MG / | [facility] | | | hydrocodone bitartrate 10 | | | | MG Oral Tab | | + + + + | 2022-04-19 00:00 | acetaminophen 325 MG / | [facility] | | | hydrocodone bitartrate 10 | | | | MG Oral Tab | | + + + + | 2021-11-02 00:00 | HYDROCODONE | [facility] | | | BIT/ACETAMINOPHEN | | + + + + | 2021-11-02 00:00 | HYDROCODONE | [facility] | | | BIT/ACETAMINOPHEN | | + + + + | 2021-11-02 00:00 | HYDROCODONE | [facility] | | | BIT/ACETAMINOPHEN | | + + + + | 2021-11-02 00:00 | acetaminophen 325 MG / | [facility] | | | hydrocodone bitartrate 5 MG | | | | Oral Tabl | | + + + + | 2013-12-03 00:00 | HYDROCODONE | [facility] | | | BIT/ACETAMINOPHEN | | + + + + | 2013-12-03 00:00 | HYDROCODONE | [facility] | | | BIT/ACETAMINOPHEN | | + + + + | 2013-12-03 00:00 | HYDROCODONE | [facility] | | | BIT/ACETAMINOPHEN | | + + + + | 2013-12-03 00:00 | HYDROCODONE | [facility] | | | BIT/ACETAMINOPHEN | | + + + + | 2013-12-03 00:00 | HYDROCODONE | [facility] | | | BIT/ACETAMINOPHEN | | + + + + | 2013-12-03 00:00 | HYDROCODONE | [facility] | | | BIT/ACETAMINOPHEN | | + + + + | 2013-12-03 00:00 | HYDROCODONE | [facility] | | | BIT/ACETAMINOPHEN | | + + + + | 2013-12-03 00:00 | HYDROCODONE | [facility] | | | BIT/ACETAMINOPHEN | | + + + + | 2013-12-03 00:00 | HYDROCODONE | [facility] | | | BIT/ACETAMINOPHEN | | + + + + | 2017-11-05 00:00 | HYDROCODONE | [facility] | | | BIT/ACETAMINOPHEN | | + + + + | 2017-11-05 00:00 | HYDROCODONE | [facility] | | | BIT/ACETAMINOPHEN | | + + + + | 2017-11-05 00:00 | HYDROCODONE | [facility] | | | BIT/ACETAMINOPHEN | | + + + + | 2017-11-05 00:00 | HYDROCODONE | [facility] | | | BIT/ACETAMINOPHEN | | + + + + | 2017-11-05 00:00 | HYDROCODONE | [facility] | | | BIT/ACETAMINOPHEN | | + + + + | 2017-11-05 00:00 | HYDROCODONE | [facility] | | | BIT/ACETAMINOPHEN | | + + + + | 2017-11-05 00:00 | HYDROCODONE | [facility] | | | BIT/ACETAMINOPHEN | | + + + + | 2017-11-05 00:00 | HYDROCODONE | [facility] | | | BIT/ACETAMINOPHEN | | + + + + | 2017-11-05 00:00 | HYDROCODONE | [facility] | | | BIT/ACETAMINOPHEN | | + + + + | 2013-12-03 00:00 | acetaminophen 325 MG / | [facility] | | | hydrocodone bitartrate 5 MG | | | | Oral Tabl | | + + + + | 2017-11-05 00:00 | acetaminophen 325 MG / | [facility] | | | hydrocodone bitartrate 5 MG | | | | Oral Tabl | | + + + + | 2022-04-06 00:00 | HYDROCODONE | [facility] | | | BIT/ACETAMINOPHEN | | + + + + | 2022-04-06 00:00 | HYDROCODONE | [facility] | | | BIT/ACETAMINOPHEN | | + + + + | 2022-04-06 00:00 | HYDROCODONE | [facility] | | | BIT/ACETAMINOPHEN | | + + + + | 2022-04-06 00:00 | HYDROCODONE | [facility] | | | BIT/ACETAMINOPHEN | | + + + + | 2022-04-06 00:00 | acetaminophen 325 MG / | [facility] | | | hydrocodone bitartrate 7.5 | | | | MG Oral Ta | | + + + + | 2020-11-01 00:00 | ALBUTEROL SULFATE | [facility] | + + + + | 2020-11-01 00:00 | ALBUTEROL SULFATE | [facility] | + + + + | 2020-11-01 00:00 | ALBUTEROL SULFATE | [facility] | + + + + | 2020-11-01 00:00 | ALBUTEROL SULFATE | [facility] | + + + + | 2020-11-01 00:00 | ALBUTEROL SULFATE | [facility] | + + + + | 2020-11-01 00:00 | ALBUTEROL SULFATE | [facility] | + + + + | 2020-11-01 00:00 | ALBUTEROL SULFATE | [facility] | + + + + | 2020-11-01 00:00 | ALBUTEROL SULFATE | [facility] | + + + + | 2020-11-01 00:00 | ALBUTEROL SULFATE | [facility] | + + + + | 2022-01-05 00:00 | ALBUTEROL SULFATE | [facility] | + + + + | 2022-01-26 00:00 | ALBUTEROL SULFATE | [facility] | + + + + | 2022-01-29 00:00 | ALBUTEROL SULFATE | [facility] | + + + + | 2022-02-08 00:00 | ALBUTEROL SULFATE | [facility] | + + + + | 2022-02-28 00:00 | ALBUTEROL SULFATE | [facility] | + + + + | 2022-02-28 00:00 | ALBUTEROL SULFATE | [facility] | + + + + | 2022-03-14 00:00 | ALBUTEROL SULFATE | [facility] | + + + + | 2022-03-17 00:00 | ALBUTEROL SULFATE | [facility] | + + + + | 2022-03-25 00:00 | ALBUTEROL SULFATE | [facility] | + + + + | 2022-03-26 00:00 | ALBUTEROL SULFATE | [facility] | + + + + | 2022-04-04 00:00 | ALBUTEROL SULFATE | [facility] | + + + + | 2022-04-06 00:00 | ALBUTEROL SULFATE | [facility] | + + + + | 2022-04-08 00:00 | ALBUTEROL SULFATE | [facility] | + + + + | 2022-04-13 00:00 | ALBUTEROL SULFATE | [facility] | + + + + | 2022-04-19 00:00 | ALBUTEROL SULFATE | [facility] | + + + + | 2020-11-01 00:00 | [id number] 200 ACTUAT | [facility] | | | albuterol 0.09 MG/ACTUAT | | | | Metered Dose I | | + + + + | 2022-01-03 00:00 | [id number] 200 ACTUAT | [facility] | | | albuterol 0.09 MG/ACTUAT | | | | Metered Dose I | | + + + + | 2022-01-22 00:00 | [id number] 200 ACTUAT | [facility] | | | albuterol 0.09 MG/ACTUAT | | | | Metered Dose I | | + + + + | 2022-01-24 00:00 | [id number] 200 ACTUAT | [facility] | | | albuterol 0.09 MG/ACTUAT | | | | Metered Dose I | | + + + + | 2022-02-01 00:00 | [id number] 200 ACTUAT | [facility] | | | albuterol 0.09 MG/ACTUAT | | | | Metered Dose I | | + + + + | 2022-02-28 00:00 | [id number] 200 ACTUAT | [facility] | | | albuterol 0.09 MG/ACTUAT | | | | Metered Dose I | | + + + + | 2022-03-14 00:00 | [id number] 200 ACTUAT | [facility] | | | albuterol 0.09 MG/ACTUAT | | | | Metered Dose I | | + + + + | 2022-03-17 00:00 | [id number] 200 ACTUAT | [facility] | | | albuterol 0.09 MG/ACTUAT | | | | Metered Dose I | | + + + + | 2022-03-25 00:00 | [id number] 200 ACTUAT | [facility] | | | albuterol 0.09 MG/ACTUAT | | | | Metered Dose I | | + + + + | 2022-03-26 00:00 | [id number] 200 ACTUAT | [facility] | | | albuterol 0.09 MG/ACTUAT | | | | Metered Dose I | | + + + + | 2022-04-04 00:00 | [id number] 200 ACTUAT | [facility] | | | albuterol 0.09 MG/ACTUAT | | | | Metered Dose I | | + + + + | 2022-04-06 00:00 | [id number] 200 ACTUAT | [facility] | | | albuterol 0.09 MG/ACTUAT | | | | Metered Dose I | | + + + + | 2022-04-08 00:00 | [id number] 200 ACTUAT | [facility] | | | albuterol 0.09 MG/ACTUAT | | | | Metered Dose I | | + + + + | 2022-04-13 00:00 | [id number] 200 ACTUAT | [facility] | | | albuterol 0.09 MG/ACTUAT | | | | Metered Dose I | | + + + + | 2022-04-19 00:00 | [id number] 200 ACTUAT | [facility] | | | albuterol 0.09 MG/ACTUAT | | | | Metered Dose I | | + + + + | 2022-01-05 00:00 | METFORMIN HCL | [facility] | + + + + | 2022-01-26 00:00 | METFORMIN HCL | [facility] | + + + + | 2022-01-29 00:00 | METFORMIN HCL | [facility] | + + + + | 2022-02-08 00:00 | METFORMIN HCL | [facility] | + + + + | 2022-02-28 00:00 | METFORMIN HCL | [facility] | + + + + | 2022-02-28 00:00 | METFORMIN HCL | [facility] | + + + + | 2022-03-14 00:00 | METFORMIN HCL | [facility] | + + + + | 2022-03-17 00:00 | METFORMIN HCL | [facility] | + + + + | 2022-03-25 00:00 | METFORMIN HCL | [facility] | + + + + | 2022-03-26 00:00 | METFORMIN HCL | [facility] | + + + + | 2022-04-04 00:00 | METFORMIN HCL | [facility] | + + + + | 2022-04-06 00:00 | METFORMIN HCL | [facility] | + + + + | 2022-04-08 00:00 | METFORMIN HCL | [facility] | + + + + | 2022-04-13 00:00 | METFORMIN HCL | [facility] | + + + + | 2022-04-19 00:00 | METFORMIN HCL | [facility] | + + + + | 2022-01-03 00:00 | metformin hydrochloride | [facility] | | | 1000 MG Oral Tablet | | + + + + | 2022-01-22 00:00 | metformin hydrochloride | [facility] | | | 1000 MG Oral Tablet | | + + + + | 2022-01-24 00:00 | metformin hydrochloride | [facility] | | | 1000 MG Oral Tablet | | + + + + | 2022-02-01 00:00 | metformin hydrochloride | [facility] | | | 1000 MG Oral Tablet | | + + + + | 2022-02-28 00:00 | metformin hydrochloride | [facility] | | | 1000 MG Oral Tablet | | + + + + | 2022-03-14 00:00 | metformin hydrochloride | [facility] | | | 1000 MG Oral Tablet | | + + + + | 2022-03-17 00:00 | metformin hydrochloride | [facility] | | | 1000 MG Oral Tablet | | + + + + | 2022-03-25 00:00 | metformin hydrochloride | [facility] | | | 1000 MG Oral Tablet | | + + + + | 2022-03-26 00:00 | metformin hydrochloride | [facility] | | | 1000 MG Oral Tablet | | + + + + | 2022-04-04 00:00 | metformin hydrochloride | [facility] | | | 1000 MG Oral Tablet | | + + + + | 2022-04-06 00:00 | metformin hydrochloride | [facility] | | | 1000 MG Oral Tablet | | + + + + | 2022-04-08 00:00 | metformin hydrochloride | [facility] | | | 1000 MG Oral Tablet | | + + + + | 2022-04-13 00:00 | metformin hydrochloride | [facility] | | | 1000 MG Oral Tablet | | + + + + | 2022-04-19 00:00 | metformin hydrochloride | [facility] | | | 1000 MG Oral Tablet | | + + + + | 2022-01-05 00:00 | METOPROLOL TARTRATE | [facility] | + + + + | 2022-01-26 00:00 | METOPROLOL TARTRATE | [facility] | + + + + | 2022-01-29 00:00 | METOPROLOL TARTRATE | [facility] | + + + + | 2022-02-08 00:00 | METOPROLOL TARTRATE | [facility] | + + + + | 2022-02-28 00:00 | METOPROLOL TARTRATE | [facility] | + + + + | 2022-02-28 00:00 | METOPROLOL TARTRATE | [facility] | + + + + | 2022-03-14 00:00 | METOPROLOL TARTRATE | [facility] | + + + + | 2022-03-17 00:00 | METOPROLOL TARTRATE | [facility] | + + + + | 2022-03-25 00:00 | METOPROLOL TARTRATE | [facility] | + + + + | 2022-03-26 00:00 | METOPROLOL TARTRATE | [facility] | + + + + | 2022-04-04 00:00 | METOPROLOL TARTRATE | [facility] | + + + + | 2022-04-06 00:00 | METOPROLOL TARTRATE | [facility] | + + + + | 2022-04-08 00:00 | METOPROLOL TARTRATE | [facility] | + + + + | 2022-04-13 00:00 | METOPROLOL TARTRATE | [facility] | + + + + | 2022-04-19 00:00 | METOPROLOL TARTRATE | [facility] | + + + + | 2022-01-03 00:00 | metoprolol tartrate 25 MG | [facility] | | | Oral Tablet | | + + + + | 2022-01-22 00:00 | metoprolol tartrate 25 MG | [facility] | | | Oral Tablet | | + + + + | 2022-01-24 00:00 | metoprolol tartrate 25 MG | [facility] | | | Oral Tablet | | + + + + | 2022-02-01 00:00 | metoprolol tartrate 25 MG | [facility] | | | Oral Tablet | | + + + + | 2022-02-28 00:00 | metoprolol tartrate 25 MG | [facility] | | | Oral Tablet | | + + + + | 2022-03-14 00:00 | metoprolol tartrate 25 MG | [facility] | | | Oral Tablet | | + + + + | 2022-03-17 00:00 | metoprolol tartrate 25 MG | [facility] | | | Oral Tablet | | + + + + | 2022-03-25 00:00 | metoprolol tartrate 25 MG | [facility] | | | Oral Tablet | | + + + + | 2022-03-26 00:00 | metoprolol tartrate 25 MG | [facility] | | | Oral Tablet | | + + + + | 2022-04-04 00:00 | metoprolol tartrate 25 MG | [facility] | | | Oral Tablet | | + + + + | 2022-04-06 00:00 | metoprolol tartrate 25 MG | [facility] | | | Oral Tablet | | + + + + | 2022-04-08 00:00 | metoprolol tartrate 25 MG | [facility] | | | Oral Tablet | | + + + + | 2022-04-13 00:00 | metoprolol tartrate 25 MG | [facility] | | | Oral Tablet | | + + + + | 2022-04-19 00:00 | metoprolol tartrate 25 MG | [facility] | | | Oral Tablet | | + + + + | 2016-06-17 00:00 | ONDANSETRON | [facility] | + + + + | 2016-06-17 00:00 | ONDANSETRON | [facility] | + + + + | 2016-06-17 00:00 | ONDANSETRON | [facility] | + + + + | 2016-06-17 00:00 | ONDANSETRON | [facility] | + + + + | 2016-06-17 00:00 | ONDANSETRON | [facility] | + + + + | 2016-06-17 00:00 | ONDANSETRON | [facility] | + + + + | 2016-06-17 00:00 | ONDANSETRON | [facility] | + + + + | 2016-06-17 00:00 | ONDANSETRON | [facility] | + + + + | 2016-06-17 00:00 | ONDANSETRON | [facility] | + + + + | 2016-06-17 00:00 | ondansetron 4 MG | [facility] | | | Disintegrating Oral Tablet | | | | [Zofran] | | + + + + | 2019-12-16 00:00 | | [facility] | | | LOSARTAN/HYDROCHLOROTHIAZID | | | | E | | + + + + | 2019-12-16 00:00 | | [facility] | | | LOSARTAN/HYDROCHLOROTHIAZID | | | | E | | + + + + | 2019-12-16 00:00 | | [facility] | | | LOSARTAN/HYDROCHLOROTHIAZID | | | | E | | + + + + | 2019-12-16 00:00 | | [facility] | | | LOSARTAN/HYDROCHLOROTHIAZID | | | | E | | + + + + | 2019-12-16 00:00 | | [facility] | | | LOSARTAN/HYDROCHLOROTHIAZID | | | | E | | + + + + | 2019-12-16 00:00 | | [facility] | | | LOSARTAN/HYDROCHLOROTHIAZID | | | | E | | + + + + | 2019-12-16 00:00 | | [facility] | | | LOSARTAN/HYDROCHLOROTHIAZID | | | | E | | + + + + | 2019-12-16 00:00 | | [facility] | | | LOSARTAN/HYDROCHLOROTHIAZID | | | | E | | + + + + | 2019-12-16 00:00 | | [facility] | | | LOSARTAN/HYDROCHLOROTHIAZID | | | | E | | + + + + | 2022-01-05 00:00 | | [facility] | | | LOSARTAN/HYDROCHLOROTHIAZID | | | | E | | + + + + | 2022-01-26 00:00 | | [facility] | | | LOSARTAN/HYDROCHLOROTHIAZID | | | | E | | + + + + | 2022-01-29 00:00 | | [facility] | | | LOSARTAN/HYDROCHLOROTHIAZID | | | | E | | + + + + | 2022-02-08 00:00 | | [facility] | | | LOSARTAN/HYDROCHLOROTHIAZID | | | | E | | + + + + | 2022-02-28 00:00 | | [facility] | | | LOSARTAN/HYDROCHLOROTHIAZID | | | | E | | + + + + | 2022-02-28 00:00 | | [facility] | | | LOSARTAN/HYDROCHLOROTHIAZID | | | | E | | + + + + | 2022-03-14 00:00 | | [facility] | | | LOSARTAN/HYDROCHLOROTHIAZID | | | | E | | + + + + | 2022-03-17 00:00 | | [facility] | | | LOSARTAN/HYDROCHLOROTHIAZID | | | | E | | + + + + | 2022-03-25 00:00 | | [facility] | | | LOSARTAN/HYDROCHLOROTHIAZID | | | | E | | + + + + | 2022-03-26 00:00 | | [facility] | | | LOSARTAN/HYDROCHLOROTHIAZID | | | | E | | + + + + | 2022-04-04 00:00 | | [facility] | | | LOSARTAN/HYDROCHLOROTHIAZID | | | | E | | + + + + | 2022-04-06 00:00 | | [facility] | | | LOSARTAN/HYDROCHLOROTHIAZID | | | | E | | + + + + | 2022-04-08 00:00 | | [facility] | | | LOSARTAN/HYDROCHLOROTHIAZID | | | | E | | + + + + | 2022-04-13 00:00 | | [facility] | | | LOSARTAN/HYDROCHLOROTHIAZID | | | | E | | + + + + | 2022-04-19 00:00 | | [facility] | | | LOSARTAN/HYDROCHLOROTHIAZID | | | | E | | + + + + | 2019-12-16 00:00 | hydrochlorothiazide 12.5 | [facility] | | | MG / losartan potassium 50 | | | | MG Oral | | + + + + | 2022-01-03 00:00 | hydrochlorothiazide 12.5 | [facility] | | | MG / losartan potassium 50 | | | | MG Oral | | + + + + | 2022-01-22 00:00 | hydrochlorothiazide 12.5 | [facility] | | | MG / losartan potassium 50 | | | | MG Oral | | + + + + | 2022-01-24 00:00 | hydrochlorothiazide 12.5 | [facility] | | | MG / losartan potassium 50 | | | | MG Oral | | + + + + | 2022-02-01 00:00 | hydrochlorothiazide 12.5 | [facility] | | | MG / losartan potassium 50 | | | | MG Oral | | + + + + | 2022-02-28 00:00 | hydrochlorothiazide 12.5 | [facility] | | | MG / losartan potassium 50 | | | | MG Oral | | + + + + | 2022-03-14 00:00 | hydrochlorothiazide 12.5 | [facility] | | | MG / losartan potassium 50 | | | | MG Oral | | + + + + | 2022-03-17 00:00 | hydrochlorothiazide 12.5 | [facility] | | | MG / losartan potassium 50 | | | | MG Oral | | + + + + | 2022-03-25 00:00 | hydrochlorothiazide 12.5 | [facility] | | | MG / losartan potassium 50 | | | | MG Oral | | + + + + | 2022-03-26 00:00 | hydrochlorothiazide 12.5 | [facility] | | | MG / losartan potassium 50 | | | | MG Oral | | + + + + | 2022-04-04 00:00 | hydrochlorothiazide 12.5 | [facility] | | | MG / losartan potassium 50 | | | | MG Oral | | + + + + | 2022-04-06 00:00 | hydrochlorothiazide 12.5 | [facility] | | | MG / losartan potassium 50 | | | | MG Oral | | + + + + | 2022-04-08 00:00 | hydrochlorothiazide 12.5 | [facility] | | | MG / losartan potassium 50 | | | | MG Oral | | + + + + | 2022-04-13 00:00 | hydrochlorothiazide 12.5 | [facility] | | | MG / losartan potassium 50 | | | | MG Oral | | + + + + | 2022-04-19 00:00 | hydrochlorothiazide 12.5 | [facility] | | | MG / losartan potassium 50 | | | | MG Oral | | + + + + | 2022-03-17 00:00 | MECLIZINE HCL | [facility] | + + + + | 2022-03-17 00:00 | MECLIZINE HCL | [facility] | + + + + | 2022-03-17 00:00 | MECLIZINE HCL | [facility] | + + + + | 2022-03-17 00:00 | MECLIZINE HCL | [facility] | + + + + | 2022-03-17 00:00 | MECLIZINE HCL | [facility] | + + + + | 2022-03-17 00:00 | meclizine hydrochloride 25 | [facility] | | | MG Oral Tablet | | + + + + | 2014-03-24 00:00 | GUAIFENESIN/CODEINE | [facility] | | | PHOSPHATE | | + + + + | 2014-03-24 00:00 | GUAIFENESIN/CODEINE | [facility] | | | PHOSPHATE | | + + + + | 2014-03-24 00:00 | GUAIFENESIN/CODEINE | [facility] | | | PHOSPHATE | | + + + + | 2014-03-24 00:00 | GUAIFENESIN/CODEINE | [facility] | | | PHOSPHATE | | + + + + | 2014-03-24 00:00 | GUAIFENESIN/CODEINE | [facility] | | | PHOSPHATE | | + + + + | 2014-03-24 00:00 | GUAIFENESIN/CODEINE | [facility] | | | PHOSPHATE | | + + + + | 2014-03-24 00:00 | GUAIFENESIN/CODEINE | [facility] | | | PHOSPHATE | | + + + + | 2014-03-24 00:00 | GUAIFENESIN/CODEINE | [facility] | | | PHOSPHATE | | + + + + | 2014-03-24 00:00 | GUAIFENESIN/CODEINE | [facility] | | | PHOSPHATE | | + + + + | 2014-03-24 00:00 | codeine phosphate 2 MG/ML | [facility] | | | / guaifenesin 20 MG/ML Oral | | | | [facility] | | + + + + Problems + + + + | date | description | facility | + + + + | 2014-03-24 00:00 | Acute bronchitis | [facility] | + + + + | 2014-03-24 00:00 | Acute bronchitis | [facility] | + + + + | 2014-03-24 00:00 | Acute bronchitis | [facility] | + + + + | 2014-03-24 00:00 | Acute bronchitis | [facility] | + + + + | 2014-03-24 00:00 | Acute bronchitis | [facility] | + + + + | 2014-03-24 00:00 | Acute bronchitis | [facility] | + + + + | 2014-03-24 00:00 | Acute bronchitis | [facility] | + + + + | 2014-03-24 00:00 | Acute bronchitis | [facility] | + + + + | 2014-03-24 00:00 | Acute bronchitis | [facility] | + + + + | 2014-11-22 00:00 | Candidal dermatitis | [facility] | + + + + | 2014-11-22 00:00 | Asthma exacerbation | [facility] | + + + + | 2014-11-22 00:00 | Candidiasis of skin | [facility] | + + + + | 2014-11-22 00:00 | Candidiasis of skin | [facility] | + + + + | 2014-11-22 00:00 | Candidiasis of skin | [facility] | + + + + | 2014-11-22 00:00 | Candidiasis of skin | [facility] | + + + + | 2014-11-22 00:00 | Candidiasis of skin | [facility] | + + + + | 2014-11-22 00:00 | Candidiasis of skin | [facility] | + + + + | 2014-11-22 00:00 | Candidiasis of skin | [facility] | + + + + | 2014-11-22 00:00 | Candidiasis of skin | [facility] | + + + + | 2014-11-22 00:00 | Candidiasis of skin | [facility] | + + + + | 2014-11-22 00:00 | Asthma with acute | [facility] | | | exacerbation | | + + + + | 2014-11-22 00:00 | Asthma with acute | [facility] | | | exacerbation | | + + + + | 2014-11-22 00:00 | Asthma with acute | [facility] | | | exacerbation | | + + + + | 2014-11-22 00:00 | Asthma with acute | [facility] | | | exacerbation | | + + + + | 2014-11-22 00:00 | Asthma with acute | [facility] | | | exacerbation | | + + + + | 2014-11-22 00:00 | Asthma with acute | [facility] | | | exacerbation | | + + + + | 2014-11-22 00:00 | Asthma with acute | [facility] | | | exacerbation | | + + + + | 2014-11-22 00:00 | Asthma with acute | [facility] | | | exacerbation | | + + + + | 2014-11-22 00:00 | Asthma with acute | [facility] | | | exacerbation | | + + + + | 2015-03-18 00:00 | Tonsillitis | [facility] | + + + + | 2015-03-18 00:00 | Tonsillitis | [facility] | + + + + | 2015-03-18 00:00 | Tonsillitis | [facility] | + + + + | 2015-03-18 00:00 | Tonsillitis | [facility] | + + + + | 2015-03-18 00:00 | Tonsillitis | [facility] | + + + + | 2015-03-18 00:00 | Tonsillitis | [facility] | + + + + | 2015-03-18 00:00 | Tonsillitis | [facility] | + + + + | 2015-03-18 00:00 | Tonsillitis | [facility] | + + + + | 2015-03-18 00:00 | Tonsillitis | [facility] | + + + + | 2015-03-18 00:00 | Globus sensation | [facility] | + + + + | 2015-03-18 00:00 | Globus sensation | [facility] | + + + + | 2015-03-18 00:00 | Globus sensation | [facility] | + + + + | 2015-03-18 00:00 | Globus sensation | [facility] | + + + + | 2015-03-18 00:00 | Globus sensation | [facility] | + + + + | 2015-03-18 00:00 | Globus sensation | [facility] | + + + + | 2015-03-18 00:00 | Globus sensation | [facility] | + + + + | 2015-03-18 00:00 | Globus sensation | [facility] | + + + + | 2015-03-18 00:00 | Globus sensation | [facility] | + + + + | 2015-04-04 00:00 | Asthma attack | [facility] | + + + + | 2015-04-04 00:00 | Anxiety | [facility] | + + + + | 2015-04-04 00:00 | Anxiety | [facility] | + + + + | 2015-04-04 00:00 | Anxiety | [facility] | + + + + | 2015-04-04 00:00 | Anxiety | [facility] | + + + + | 2015-04-04 00:00 | Anxiety | [facility] | + + + + | 2015-04-04 00:00 | Anxiety | [facility] | + + + + | 2015-04-04 00:00 | Anxiety | [facility] | + + + + | 2015-04-04 00:00 | Anxiety | [facility] | + + + + | 2015-04-04 00:00 | Anxiety | [facility] | + + + + | 2015-04-04 00:00 | Exacerbation of asthma | [facility] | + + + + | 2015-04-04 00:00 | Exacerbation of asthma | [facility] | + + + + | 2015-04-04 00:00 | Exacerbation of asthma | [facility] | + + + + | 2015-04-04 00:00 | Exacerbation of asthma | [facility] | + + + + | 2015-04-04 00:00 | Exacerbation of asthma | [facility] | + + + + | 2015-04-04 00:00 | Exacerbation of asthma | [facility] | + + + + | 2015-04-04 00:00 | Exacerbation of asthma | [facility] | + + + + | 2015-04-04 00:00 | Exacerbation of asthma | [facility] | + + + + | 2015-04-04 00:00 | Exacerbation of asthma | [facility] | + + + + | 2015-04-15 00:00 | Contusion of upper | [facility] | | | extremity | | + + + + | 2015-04-15 00:00 | Contusion of upper | [facility] | | | extremity | | + + + + | 2015-04-15 00:00 | Contusion of upper | [facility] | | | extremity | | + + + + | 2015-04-15 00:00 | Contusion of upper | [facility] | | | extremity | | + + + + | 2015-04-15 00:00 | Contusion of upper | [facility] | | | extremity | | + + + + | 2015-04-15 00:00 | Contusion of upper | [facility] | | | extremity | | + + + + | 2015-04-15 00:00 | Contusion of upper | [facility] | | | extremity | | + + + + | 2015-04-15 00:00 | Contusion of upper | [facility] | | | extremity | | + + + + | 2015-04-15 00:00 | Contusion of upper | [facility] | | | extremity | | + + + + | 2016-06-17 00:00 | Viral URI with cough | [facility] | + + + + | 2016-06-17 00:00 | Viral upper respiratory | [facility] | | | tract infection with cough | | + + + + | 2016-06-17 00:00 | Viral upper respiratory | [facility] | | | tract infection with cough | | + + + + | 2016-06-17 00:00 | Viral upper respiratory | [facility] | | | tract infection with cough | | + + + + | 2016-06-17 00:00 | Viral upper respiratory | [facility] | | | tract infection with cough | | + + + + | 2016-06-17 00:00 | Viral upper respiratory | [facility] | | | tract infection with cough | | + + + + | 2016-06-17 00:00 | Viral upper respiratory | [facility] | | | tract infection with cough | | + + + + | 2016-06-17 00:00 | Viral upper respiratory | [facility] | | | tract infection with cough | | + + + + | 2016-06-17 00:00 | Viral upper respiratory | [facility] | | | tract infection with cough | | + + + + | 2016-06-17 00:00 | Viral upper respiratory | [facility] | | | tract infection with cough | | + + + + | 2016-07-16 00:00 | Encounter for medical | [facility] | | | screening examination | | + + + + | 2016-07-16 00:00 | Encounter for medical | [facility] | | | screening examination | | + + + + | 2016-07-16 00:00 | Encounter for medical | [facility] | | | screening examination | | + + + + | 2016-07-16 00:00 | Encounter for medical [facility] | | | screening examination | | + + + + | 2016-07-16 00:00 | Encounter for medical | [facility] | | | screening examination | | + + + + | 2016-07-16 00:00 | Encounter for medical [facility] | | | screening examination | | + + + + | 2016-07-16 00:00 | Encounter for medical | [facility] | | | screening examination | | + + + + | 2016-07-16 00:00 | Encounter for medical | [facility] | | | screening examination | | + + + + | 2016-07-16 00:00 | Encounter for medical | [facility] | | | screening examination | | + + + + | 2016-12-19 00:00 | Facial contusion | [facility] | + + + + | 2016-12-19 00:00 | Contusion of face | [facility] | + + + + | 2016-12-19 00:00 | Contusion of face | [facility] | + + + + | 2016-12-19 00:00 | Contusion of face | [facility] | + + + + | 2016-12-19 00:00 | Contusion of face | [facility] | + + + + | 2016-12-19 00:00 | Contusion of face | [facility] | + + + + | 2016-12-19 00:00 | Contusion of face | [facility] | + + + + | 2016-12-19 00:00 | Contusion of face | [facility] | + + + + | 2016-12-19 00:00 | Contusion of face | [facility] | + + + + | 2016-12-19 00:00 | Contusion of face | [facility] | + + + + | 2018-10-06 00:00 | Left otitis externa | [facility] | + + + + | 2018-10-06 00:00 | Otitis externa of left ear | [facility] | | | | | + + + + | 2018-10-06 00:00 | Otitis externa of left ear | [facility] | | | | | + + + + | 2018-10-06 00:00 | Otitis externa of left ear | [facility] | | | | | + + + + | 2018-10-06 00:00 | Otitis externa of left ear | [facility] | | | | | + + + + | 2018-10-06 00:00 | Otitis externa of left ear | [facility] | | | | | + + + + | 2018-10-06 00:00 | Otitis externa of left ear | [facility] | | | | | + + + + | 2018-10-06 00:00 | Otitis externa of left ear | [facility] | | | | | + + + + | 2018-10-06 00:00 | Otitis externa of left ear | [facility] | | | | | + + + + | 2018-10-06 00:00 | Otitis externa of left ear | [facility] | | | | | + + + + | 2019-04-05 00:00 | Abdominal wall abscess | [facility] | + + + + | 2019-04-05 00:00 | Abdominal abscess | [facility] | + + + + | 2019-04-05 00:00 | Abdominal abscess | [facility] | + + + + | 2019-04-05 00:00 | Abdominal abscess | [facility] | + + + + | 2019-04-05 00:00 | Abdominal abscess | [facility] | + + + + | 2019-04-05 00:00 | Abdominal abscess | [facility] | + + + + | 2019-04-05 00:00 | Abdominal abscess | [facility] | + + + + | 2019-04-05 00:00 | Abdominal abscess | [facility] | + + + + | 2019-04-05 00:00 | Abdominal abscess | [facility] | + + + + | 2019-04-05 00:00 | Abdominal abscess | [facility] | + + + + | 2019-04-05 00:00 | Abscess of abdominal wall | [facility] | + + + + | 2019-04-05 00:00 | Abscess of abdominal wall | [facility] | + + + + | 2019-04-05 00:00 | Abscess of abdominal wall | [facility] | + + + + | 2019-04-05 00:00 | Abscess of abdominal wall | [facility] | + + + + | 2019-04-05 00:00 | Abscess of abdominal wall | [facility] | + + + + | 2019-04-05 00:00 | Abscess of abdominal wall | [facility] | + + + + | 2019-04-05 00:00 | Abscess of abdominal wall | [facility] | + + + + | 2019-04-05 00:00 | Abscess of abdominal wall | [facility] | + + + + | 2019-04-05 00:00 | Abscess of abdominal wall | [facility] | + + + + | 2019-09-24 00:00 | Right otitis externa | [facility] | + + + + | 2019-09-24 00:00 | Cutaneous abscess | [facility] | + + + + | 2019-09-24 00:00 | Otitis externa of right | [facility] | | | ear | | + + + + | 2019-09-24 00:00 | Otitis externa of right | [facility] | | | ear | | + + + + | 2019-09-24 00:00 | Otitis externa of right | [facility] | | | ear | | + + + + | 2019-09-24 00:00 | Otitis externa of right | [facility] | | | ear | | + + + + | 2019-09-24 00:00 | Otitis externa of right | [facility] | | | ear | | + + + + | 2019-09-24 00:00 | Otitis externa of right | [facility] | | | ear | | + + + + | 2019-09-24 00:00 | Otitis externa of right | [facility] | | | ear | | + + + + | 2019-09-24 00:00 | Otitis externa of right | [facility] | | | ear | | + + + + | 2019-09-24 00:00 | Otitis externa of right | [facility] | | | ear | | + + + + 2019-09-24 00:00 | Abscess of skin | [facility] | + + + + | 2019-09-24 00:00 | Abscess of skin | [facility] | + + + + | 2019-09-24 00:00 | Abscess of skin | [facility] | + + + + | 2019-09-24 00:00 | Abscess of skin | [facility] | + + + + | 2019-09-24 00:00 | Abscess of skin | [facility] | + + + + 2019-09-24 00:00 | Abscess of skin | [facility] | + + + + 2019-09-24 00:00 | Abscess of skin | [facility] | + + + + | 2019-09-24 00:00 | Abscess of skin | [facility] | + + + + | 2019-09-24 00:00 | Abscess of skin | [facility] | + + + + | 2019-12-16 00:00 | Poorly controlled diabetes | [facility] | | | mellitus | | + + + + | 2019-12-16 00:00 | Poorly controlled diabetes | [facility] | | | mellitus | | + + + + | 2019-12-16 00:00 | Poorly controlled diabetes | [facility] | | | mellitus | | + + + + | 2019-12-16 00:00 | Poorly controlled diabetes | [facility] | | | mellitus | | + + + + | 2019-12-16 00:00 | Poorly controlled diabetes | [facility] | | | mellitus | | + + + + | 2019-12-16 00:00 | Poorly controlled diabetes | [facility] | | | mellitus | | + + + + | 2019-12-16 00:00 | Poorly controlled diabetes | [facility] | | | mellitus | | + + + + | 2019-12-16 00:00 | Poorly controlled diabetes | [facility] | | | mellitus | | + + + + | 2019-12-16 00:00 | Poorly controlled diabetes | [facility] | | | mellitus | | + + + + | 2019-12-16 00:00 | Hypertension | [facility] | + + + + | 2019-12-16 00:00 | Hypertension | [facility] | + + + + | 2019-12-16 00:00 | Hypertension | [facility] | + + + + | 2019-12-16 00:00 | Hypertension | [facility] | + + + + | 2019-12-16 00:00 | Hypertension | [facility] | + + + + | 2019-12-16 00:00 | Hypertension | [facility] | + + + + | 2019-12-16 00:00 | Hypertension | [facility] | + + + + | 2019-12-16 00:00 | Hypertension | [facility] | + + + + | 2019-12-16 00:00 | Hypertension | [facility] | + + + + | 2019-12-16 00:00 | Chest pain | [facility] | + + + + | 2019-12-16 00:00 | Chest pain | [facility] | + + + + | 2019-12-16 00:00 | Chest pain | [facility] | + + + + | 2019-12-16 00:00 | Chest pain | [facility] | + + + + | 2019-12-16 00:00 | Chest pain | [facility] | + + + + | 2019-12-16 00:00 | Chest pain | [facility] | + + + + | 2019-12-16 00:00 | Chest pain | [facility] | + + + + | 2019-12-16 00:00 | Chest pain | [facility] | + + + + | 2019-12-16 00:00 | Chest pain | [facility] | + + + + | 2020-09-15 00:00 | UTI (urinary tract | [facility] | | | infection) | | + + + + | 2020-09-15 00:00 | Urinary tract infection | [facility] | + + + + | 2020-09-15 00:00 | Urinary tract infection | [facility] | + + + + | 2020-09-15 00:00 | Urinary tract infection | [facility] | + + + + | 2020-09-15 00:00 | Urinary tract infection | [facility] | + + + + | 2020-09-15 00:00 | Urinary tract infection | [facility] | + + + + | 2020-09-15 00:00 | Urinary tract infection | [facility] | + + + + | 2020-09-15 00:00 | Urinary tract infection | [facility] | + + + + | 2020-09-15 00:00 | Urinary tract infection | [facility] | + + + + | 2020-09-15 00:00 | Urinary tract infection | [facility] | + + + + | 2020-09-15 00:00 | Acute mastitis of left | [facility] | | | breast | | + + + + | 2020-09-15 00:00 | Acute mastitis of left | [facility] | | | breast | | + + + + | 2020-09-15 00:00 | Acute mastitis of left | [facility] | | | breast | | + + + + | 2020-09-15 00:00 | Acute mastitis of left | [facility] | | | breast | | + + + + | 2020-09-15 00:00 | Acute mastitis of left | [facility] | | | breast | | + + + + | 2020-09-15 00:00 | Acute mastitis of left | [facility] | | | breast | | + + + + | 2020-09-15 00:00 | Acute mastitis of left | [facility] | | | breast | | + + + + | 2020-09-15 00:00 | Acute mastitis of left | [facility] | | | breast | | + + + + | 2020-09-15 00:00 | Acute mastitis of left | [facility] | | | breast | | + + + + | 2020-10-23 00:00 | Congestive heart failure | [facility] | + + + + | 2020-10-23 00:00 | Congestive heart failure | [facility] | + + + + | 2020-10-23 00:00 | Congestive heart failure | [facility] | + + + + | 2020-10-23 00:00 | Congestive heart failure | [facility] | + + + + | 2020-10-23 00:00 | Congestive heart failure | [facility] | + + + + | 2020-10-23 00:00 | Congestive heart failure | [facility] | + + + + | 2020-10-23 00:00 | Congestive heart failure | [facility] | + + + + | 2020-10-23 00:00 | Congestive heart failure | [facility] | + + + + | 2020-10-23 00:00 | Congestive heart failure | [facility] | + + + + | 2020-11-01 00:00 | Allergic asthma | [facility] | + + + + | 2020-11-01 00:00 | Bronchitis | [facility] | + + + + | 2020-11-01 00:00 | Bronchitis | [facility] | + + + + | 2020-11-01 00:00 | Bronchitis | [facility] | + + + + | 2020-11-01 00:00 | Bronchitis | [facility] | + + + + | 2020-11-01 00:00 | Bronchitis | [facility] | + + + + | 2020-11-01 00:00 | Bronchitis | [facility] | + + + + | 2020-11-01 00:00 | Bronchitis | [facility] | + + + + | 2020-11-01 00:00 | Bronchitis | [facility] | + + + + | 2020-11-01 00:00 | Bronchitis | [facility] | + + + + | 2020-11-01 00:00 | Extrinsic asthma | [facility] | + + + + | 2020-11-01 00:00 | Extrinsic asthma | [facility] | + + + + | 2020-11-01 00:00 | Extrinsic asthma | [facility] | + + + + | 2020-11-01 00:00 | Extrinsic asthma | [facility] | + + + + | 2020-11-01 00:00 | Extrinsic asthma | [facility] | + + + + | 2020-11-01 00:00 | Extrinsic asthma | [facility] | + + + + | 2020-11-01 00:00 | Extrinsic asthma | [facility] | + + + + | 2020-11-01 00:00 | Extrinsic asthma | [facility] | + + + + | 2020-11-01 00:00 | Extrinsic asthma | [facility] | + + + + | 2020-11-01 00:00 | Hyperglycemia | [facility] | + + + + | 2020-11-01 00:00 | Hyperglycemia | [facility] | + + + + | 2020-11-01 00:00 | Hyperglycemia | [facility] | + + + + | 2020-11-01 00:00 | Hyperglycemia | [facility] | + + + + | 2020-11-01 00:00 | Hyperglycemia | [facility] | + + + + | 2020-11-01 00:00 | Hyperglycemia | [facility] | + + + + | 2020-11-01 00:00 | Hyperglycemia | [facility] | + + + + | 2020-11-01 00:00 | Hyperglycemia | [facility] | + + + + | 2020-11-01 00:00 | Hyperglycemia | [facility] | + + + + | 2021-10-26 00:00 | Febrile illness | [facility] | + + + + | 2021-10-26 00:00 | Febrile illness | [facility] | + + + + | 2021-10-26 00:00 | Febrile illness | [facility] | + + + + | 2021-10-26 00:00 | Febrile illness | [facility] | + + + + | 2021-10-26 00:00 | Febrile illness | [facility] | + + + + | 2021-10-26 00:00 | Febrile illness | [facility] | + + + + | 2021-10-26 00:00 | Febrile illness | [facility] | + + + + | 2021-10-26 00:00 | Febrile illness | [facility] | + + + + | 2021-10-26 00:00 | Febrile illness | [facility] | + + + + | 2021-11-02 00:00 | Myositis | [facility] | + + + + | 2021-11-02 00:00 | Myositis | [facility] | + + + + | 2021-11-02 00:00 | Myositis | [facility] | + + + + | 2021-11-02 00:00 | Myositis | [facility] | + + + + | 2021-11-02 00:00 | Myositis | [facility] | + + + + | 2021-11-02 00:00 | Myositis | [facility] | + + + + | 2021-11-02 00:00 | Myositis | [facility] | + + + + | 2021-11-02 00:00 | Myositis | [facility] | + + + + | 2021-11-02 00:00 | Myositis | [facility] | + + + + | [...] | 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 [...] | 2022-01-22 00:00 | CHF exacerbation | [facility] | + + + + | 2022-01-22 00:00 | Acute on chronic | [facility] | | | congestive heart failure | | + + + + | 2022-01-22 00:00 | Acute on chronic | [facility] | | | congestive heart failure | | + + + + | 2022-01-22 00:00 | Acute on chronic | [facility] | | | congestive heart failure | | + + + + | 2022-01-22 00:00 | Acute on chronic | [facility] | | | congestive heart failure | | + + + + | 2022-01-22 00:00 | Acute on chronic | [facility] | | | congestive heart failure | | + + + + | 2022-01-22 00:00 | Acute on chronic | [facility] | | | congestive heart failure | | + + + + | 2022-01-22 00:00 | Acute on chronic | [facility] | | | congestive heart failure | | + + + + | 2022-01-22 00:00 | Acute on chronic | [facility] | | | congestive heart failure | | + + + + | 2022-01-22 00:00 | Acute on chronic | [facility] | | | congestive heart failure | | + + + + | 2022-03-14 00:00 | Patient left without being | [facility] | | | seen | | + + + + | 2022-03-14 00:00 | Patient left without being | [facility] | | | seen | | + + + + | 2022-03-14 00:00 | Patient left without being | [facility] | | | seen | | + + + + | 2022-03-14 00:00 | Patient left without being | [facility] | | | seen | | + + + + | 2022-03-14 00:00 | Patient left without being | [facility] | | | seen | | + + + + | 2022-03-14 00:00 | Patient left without being | [facility] | | | seen | | + + + + | 2022-03-17 00:00 | Vertigo | [facility] | + + + + | 2022-03-17 00:00 | Vertigo | [facility] | + + + + | 2022-03-17 00:00 | Vertigo | [facility] | + + + + | 2022-03-17 00:00 | Vertigo | [facility] | + + + + | 2022-03-17 00:00 | Vertigo | [facility] | + + + + | 2022-03-17 00:00 | Vertigo | [facility] | + + + + | 2022-03-25 00:00 | Menorrhagia | [facility] | + + + + | 2022-03-25 00:00 | Menorrhagia | [facility] | + + + + | 2022-03-25 00:00 | Menorrhagia | [facility] | + + + + | 2022-03-25 00:00 | Menorrhagia | [facility] | + + + + | 2022-03-25 00:00 | Menorrhagia | [facility] | + + + + | 2022-03-25 00:00 | Menorrhagia | [facility] | + + + + | 2022-04-08 00:00 | Chest wall pain | [facility] | + + + + | 2022-04-08 00:00 | Chest wall pain | [facility] | + + + + | 2022-04-08 00:00 | Chest wall pain | [facility] | + + + + | 2022-04-08 00:00 | Chest wall pain | [facility] | + + + + | 2022-04-19 00:00 | Atypical chest pain | [facility] | + + + + | 2022-04-19 00:00 | Atypical chest pain | [facility] | + + + + Procedures [...] (missing) | | (unavailable | 19:09 | [facility] | | | [...] (missing) | | blood | 15:21 | [facility] | | | | | monocyte | [...] (missing) | | (unavailable | 23:31 | [facility] | | | | | [...] (missing) | | (unavailable | 12:01 | oJsue | | | | | [...] (missing) | | erythrocyte | 17:25 | [facility] | | | | | distribution | [...] (missing) | | blood | 12:01 | [facility] | | | | | basophil | [...] (missing) | | erythrocyte | 21:54 | [facility] | | | | | [...] + + | Glomerular | 2022-01-22 | [facility] [address] | 97 | (missing) | (missing) [...] 2022-01-03 00:00 | Current Light tobacco | [facility] | | | smoker | | + + + + | 2022-01-22 00:00 | Current Light tobacco | [facility] | | | smoker | | + + + + | 2022-01-24 00:00 | Current Light tobacco | [facility] | | | smoker | | + + + + | 2022-02-01 00:00 | Current Light tobacco | [facility] | | | smoker | | + + + + | 2022-02-28 00:00 | Current Light tobacco | [facility] | | | smoker | | + + + + | 2022-03-14 00:00 | Current Light tobacco | [facility] | | | smoker | | + + + + | 2022-03-17 00:00 | Current Light tobacco | [facility] | | | smoker | | + + + + | 2022-03-25 00:00 | Current Light tobacco | [facility] | | | smoker | | + + + + | 2022-03-26 00:00 | Current Light tobacco | [facility] | | | smoker | | + + + + | 2022-04-04 00:00 | Current Light tobacco | [facility] | | | smoker | | + + + + | 2022-04-06 00:00 | Current Light tobacco | [facility] | | | smoker | | + + + + | 2022-04-08 00:00 | Current Light tobacco | [facility] | | | smoker | | + + + + | 2022-04-13 00:00 | Current Light tobacco | [facility] | | | smoker | | + + + + | 2022-04-19 00:00 | Current Light tobacco | [facility] | | | smoker | | [...]
--- OUTSIDE RECORDS SUMMARY | 2023-02-04 06:56 | XMS ---
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 - Patient with suicidal and/or homicidal ideations eloped. - Patient eloped with IV in place. Details: PATIENT LWBS CRITERIA MET - PDMP - [facility] [place] - Has Care Guidelines CARE PROVIDERS -Anand- Dentist: Sales Architect [facility] PHONE: [phone] SURENDRA CHAPMAN Internal Medicine 10/22/2020-Current PHONE: Unknown [place] has no Care Guidelines for this patient. Care History Medical/Surgical 10/29/2021 [facility] - Patient is currently established with [facility]. If patient is seen in the ED during business hours. Please contact CHWs at [facility]. Care Recommendation: This patient has [...] up visit with Dr. Chapman on 01/02/2020 [place] VISIT COUNT (12 MO.) 12 [facility]. TOTAL 12 NOTE: Visits indicate total known visits. ED/UCC VISIT TRACKING (12 MO.) 02/04/2023 06:55 [facility] [place] TYPE: Emergency COMPLAINT: - SKIN PROBLEM 04/19/2022 11:45 [facility] [place] TYPE: Emergency COMPLAINT: - CHEST PAIN DIAGNOSES: - Allergy status to other drugs, medicaments and biological substances - Atherosclerotic heart disease of red devil coronary artery without angina pectoris - Essential (primary) hypertension - Latex allergy status - detention (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 - Nicotine dependence, unspecified, uncomplicated - Obesity, unspecified - Old myocardial infarction - Other chest pain - 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 - Type 2 diabetes mellitus without complications 04/13/2022 12:59 [facility] [place] TYPE: Emergency COMPLAINT: - CHEST PAIN DIAGNOSES: - Allergy status to other drugs, medicaments and biological substances - Allergy to other foods - Atherosclerotic heart disease of red devil coronary artery without angina pectoris - Chest pain, unspecified - Essential (primary) hypertension - Latex allergy status - Nicotine dependence, unspecified, uncomplicated - Old myocardial infarction - 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 - Type 2 diabetes mellitus without complications 04/08/2022 14:30 [facility] [place] TYPE: Emergency COMPLAINT: - SOB, CHEST PAIN, L ARM PAIN DIAGNOSES: - Allergy status to other drugs, medicaments and biological substances - Allergy to other foods - Anxiety disorder, unspecified - Atherosclerotic heart disease of red devil coronary artery without angina pectoris - Body mass index [BMI] 38.0-38.9, adult - Essential (primary) hypertension - Latex allergy status - Nicotine dependence, unspecified, uncomplicated - Obesity, unspecified - Other chest pain - Other nursing home (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 - Precordial pain - Type 2 diabetes mellitus without complications 04/06/2022 15:00 [facility] [place] TYPE: Emergency COMPLAINT: - CHEST PAIN DIAGNOSES: - Allergy status to other drugs, medicaments and biological substances - Atherosclerotic heart disease of red devil coronary artery without angina pectoris - Chest pain, unspecified - Essential (primary) hypertension - Latex allergy status - 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 - Nicotine dependence, unspecified, uncomplicated - Obesity, unspecified - Old myocardial infarction - 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 - Type 2 diabetes mellitus without complications 04/04/2022 16:19 [facility] [place] TYPE: Emergency COMPLAINT: - CHEST PAIN DIAGNOSES: - Allergy status to other drugs, medicaments and biological substances - Allergy to other foods - Atherosclerotic heart disease of red devil coronary artery without angina pectoris - Chest pain, unspecified - Essential (primary) hypertension - Latex allergy status - detention (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 of aspirin - 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 - Nicotine dependence, unspecified, uncomplicated - 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 - Type 2 diabetes mellitus without complications [facility] COMPLAINT: - CHEST PAIN DIAGNOSES: - Allergy status to other drugs, medicaments and biological substances - Chest pain, unspecified - Contact with and (suspected) exposure to COVID-19 - Heart failure, unspecified - Hypertensive heart disease with heart failure - Latex allergy status - Nicotine dependence, unspecified, uncomplicated - Old myocardial infarction - 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 - Type 2 diabetes mellitus without complications 03/25/2022 15:[address] [facility] [address] 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 - Type 2 diabetes mellitus without complications 03/17/2022 14:47 [facility] [place] TYPE: Emergency COMPLAINT: - SHOB/CHEST PAIN DIAGNOSES: - Allergy status to other drugs, medicaments and biological substances - Atherosclerotic heart disease of red devil coronary artery without angina pectoris - Dizziness and giddiness - Essential (primary) hypertension - Latex allergy status - 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 - Nicotine dependence, unspecified, uncomplicated - Old myocardial infarction - Other nursing home (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 - Type 2 diabetes mellitus without complications 03/14/2022 16:52 [facility] [place] TYPE: Emergency COMPLAINT: - FOOT SWELLING 02/28/2022 16:34 [facility] [place] TYPE: Emergency COMPLAINT: - CHEST PAIN DIAGNOSES: - Allergy status to other antibiotic agents - Allergy status to other drugs, medicaments and biological substances - Atherosclerotic heart disease of red devil coronary artery without angina pectoris - Chest pain, unspecified - Essential (primary) hypertension - Latex allergy status - detention (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 - Nicotine dependence, unspecified, uncomplicated - Obesity, unspecified - Old myocardial infarction - Other nursing home (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 - Type 2 diabetes mellitus without complications 02/27/2022 23:[address] 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
[2023-02-04] MEDS ORDERED: CLOPIDOGREL75 MG PO (07:17)
[2023-02-04 08:48] LABS: BASOPHILS 0.9 % (0-2); EOSINOPHILS 1.9 % (0-6); HEMATOCRIT 37.6 % (35.0-50.0); HEMOGLOBIN 12.7 g/dL (12.0-18.0); LYMPHOCYTES 31.6 % (24-44); MCH 29.2 (27-36); MCHC 33.8 g/dl (30-36); MCV 86.4 fl (81-99); MONOCYTES 6.8 % (0-12); NEUTROPHILS 58.8 % (39-80); PLATELET COUNT 401 K/uL (140-440); RBC 4.35 M/ul (4.3-5.7); RDW 12.8 (10.5-15.0)
[2023-02-04 09:03] LABS: ALBUMIN 2.1 g/dL (3.4-5.0); ALBUMIN/GLOBULIN RATIO 0.42 (1.1-2.4); ANION GAP 13.6 (7-21); BILIRUBIN, TOTAL 0.7 ng/dL (0.2-1.0); CALCIUM 9.3 mg/dL (8.5-10.1); CREATININE, SERUM 1.1 mg/dL (0.55-1.02); POTASSIUM 4.6 mmol/L (3.5-5.1); PROTEIN, TOTAL 7.1 g/dL (6.4-8.2)
--- NOTE | 2023-02-04 09:45 | NUR ---
PT TO ROOM VIA STRETCHER. PT ABLE TO AMBULATE FROM STRETCHER TO BED. SKIN ASSESSMENT COMPLETE, RIGHT BUTTOCK WOUND NOTED, BLACK WITH FOUL ODOR PRESENT. PT TO RESTROOM, SURGICAL WIPE DOWN COMPLETE, CLEAN GOWN. PT IV PATENT, VSS, ORIENTED TO ROOM AND CALL LIGHT SYSTEM. PT VERBALIZED UNDERSTANDING. PT DENIES NEED FOR PAIN INTERVENTION AT THIS TIME. DENIES FURTHER NEEDS AT THIS TIME. CALL LIGHT IN REACH.
[2023-02-04 10:15] VITALS: BP 159/102
[2023-02-04] MEDS ORDERED: VENTOLIN HFA18 GM INH (11:20)
--- NOTE | 2023-02-04 11:29 | NUR ---
SPOKE WITH PATIENT REGARDING HER LIVING SITUATION. LIVES IN A 1 STORY HOME WITH VERY SMALL STEP TO GET INSIDE. STATES SHE HAS NO ISSUES NAVIGATING STEP AND DOES NOT FORESEE IT BEING AN ISSUE. LIVES ALONE. SISTER IS HER EMERGENCY CONTACT. PATIENT DOES NOT DRIVE BUT HAS FAMILY, FRIENDS AND USES [employer] FOR TRANSPORTATION. DOES NOT HAVE ANY FINANCIAL ISSUES OR DIFFICULTY OBTAINING FOOD OR MEDICATIONS. STATES SHE DOES NOT HAVE ANY DME. DOES NOT ANTICIPATE NEEDS. INSTRUCTED TO NOTIFY STAFF IF NEEDS ARISE.
[2023-02-04] MEDS ORDERED: CYMBALTA30 MG PO (13:13)
--- NOTE | 2023-02-04 15:09 | NUR ---
02/04/23 1509 Nataly Cabrera 1501 PT TO PACU, DROWSY, SHE RESPONDS TO VERBAL STIMULI. WOUND VAC IN PLACE AND RUNNING. PT ON O2 VIA MASK, FOGGING NOTED IN MASK.
--- NOTE | 2023-02-04 15:24 | HP ---
[facility] [address] [place], [place] [address] Signed ADMISSION DATE: 02/04/2023 REASON FOR ADMISSION: Necrotic right buttock soft tissue infection. HISTORY OF PRESENT ILLNESS: This 43-year-old morbidly obese diabetic woman is well known to this institution, having had recurrent debridement and drainage of various subcutaneous and cutaneous abscesses. She has had several days of increasing pain in the right gluteal area. She presented to the emergency room where she was evaluated by Dr. Castillo as well as Dr. Adkins and found to have a necrotic appearing wound in the left buttock area. Significant erythematous changes noted in the perineum otherwise. Notably, she has had no subjectively toxic side effects, specifically no fever, chills, or other similar problems. Lab studies are now pending and IV is being established. She has no hypertension but no systemic toxicity otherwise. Review of her electronic health record from [facility] shows she has previously been admitted for chest pain, shortness of breath, and prior history of angina. PAST MEDICAL HISTORY: In addition to significant obesity includes diabetes mellitus, hypertension, chronic back pain and anxiety. PAST SURGICAL HISTORY: Includes right ankle operation, history of hernia repair, , tooth extraction, and coronary stenting x2. SOCIAL HISTORY: The patient lives with an ex- and four children. Her primary provider is Dr. Prateek Chapman. ALLERGIES: She does have allergy to metformin, calamine, tapioca, apricots and latex. REVIEW OF SYSTEMS: She has had no shortness of breath or chest pain. Does have some pain of the left buttock area. PHYSICAL EXAMINATION: Electronically Signed By: BHARGAV GOMEZ MD 02/04/23 1524 PATIENT NAME: WILBERT KUO HISTORY AND PHYSICAL DATE OF : 76 REPORT #: [id number] PHYSICIAN: BHARGAV GOMEZ MD PCP: PRATEEK CHAPMAN MD REPORT IS CONFIDENTIAL AND NOT TO BE RELEASED WITHOUT AUTHORIZATION [facility] [address] [place], [place] [address] Signed GENERAL: A morbidly obese white woman, who does not look systemically toxic at this time. VITAL SIGNS: Show a temperature of 98.0, pulse 69, blood pressure 179/109. NECK: Trachea is midline. HEENT: Mucous membranes reasonably moist. There is an IV antibiotic running but no peripheral IV otherwise. ABDOMEN: Quite morbidly obese with a large abdominal pannus hanging to the right side of the stretcher. Examination of the buttock area in the presence of the laborer shaft sinking drawing blood shows a necrotic dermal defect approximately 6 x 8 cm in size with surrounding erythema towards the perineum proper. This is on the right side and has a decubitus appearance. EXTREMITIES: Show numerous excoriations attributed to multiple cat scratches and so on. LABORATORY DATA: Lab studies are still pending. MEDICATIONS: The patient's medication list includes albuterol, atorvastatin, Plavix, Lasix, gabapentin, insulin, meclizine, metoprolol, mupirocin, nitroglycerin, Zofran, ASSESSMENT: The patient has a necrotic wound of the right perineum/gluteal area for which operative debridement is definitely necessary. Cellulitic changes are noted as well. The patient has a strong proclivity to cutaneous infections from the past. Underlying diabetes no doubt contributes to her problem, I am sure. She last ate at approximately 6:00 a.m. so as to avoid low blood sugar. Her lab studies have returned showing a white count of 9.2, hematocrit of 37.6, platelets 401,000, and Chem profile which is still pending. I have initiated meropenem antibiotic due to the significant nature of the infection, underlying immunocompromise related to diabetes and worse in nature of the infection as noted. Review of her medical record shows that I had performed operation on her in August of 2020, which included giant right breast abscess requiring incision and drainage of the abscess and breakdown of loculations as well as irrigation of the abscess cavity. This is yet another infection in the long list of infections she has had including those treated by others. The risk of bleeding, infection, cosmetic deformity, need for additional treatment or prolonged antibiotic or wound care therapy was reviewed with her. She understands and wished to proceed. Electronically Signed By: BHARGAV GOMEZ MD 02/04/23 1524 PATIENT NAME: IWLBERT KUO HISTORY AND PHYSICAL DATE OF : 76 REPORT #: [id number] PHYSICIAN: BHARGAV GOMEZ MD PCP: PRATEEK CHAPMAN MD REPORT IS CONFIDENTIAL AND NOT TO BE RELEASED WITHOUT AUTHORIZATION [address] [address] Signed Bhargav Gomez MD JM/MODL /[id number] cc: MD Dr. Jonathan Lantigua MD Copies: KITA ADKINS MD, MALCOLM MD ~ Electronically Signed By: BHARGAV GOMEZ MD 02/04/23 1524 PATIENT NAME: WILBERT KUO HISTORY AND PHYSICAL DATE OF : 76 REPORT #: [id number] PHYSICIAN: BHARGAV GOMEZ MD PCP: PRATEEK CHAPMAN MD REPORT IS CONFIDENTIAL AND NOT TO BE RELEASED WITHOUT AUTHORIZATION
--- NOTE | 2023-02-04 15:46 | NUR ---
PT BACK TO FLOOR WITH GREG BARRETT. PT HAS WOUND VAC IN PLACE. IVF RESTARTED. PT STATES IT IS STINGING A LITTLE. CPOX AND SCD'S IN PLACE.
[2023-02-04 15:49] VITALS: BP 125/69
--- NOTE | 2023-02-04 16:10 | NUR ---
PT LYING IN BED C/O 10/10 PAIN TO SHARP PAIN TO RIGHT BUTTOCK. GIVEN PRN NORCO. PT DENIES NAUSEA AT THIS TIME. IV FLUIDS AND ABX STARTED. WOUND VAC TO 120 SUCTION WITH GOOD SEAL. PT DENIES FURTHER NEEDS AT THIS TIME. CALL LIGHT IN REACH.
[2023-02-04 16:40] VITALS: BP 121/63
--- NOTE | 2023-02-04 16:41 | NUR ---
POST OP CHECK COMPLETE. WOUND VAC REMAINS WITH GOOD SEAL AT 120 SUCTION. PT VSS. DENIES NEEDS AT THIS TIME. CALL LIGHT IN REACH.
[2023-02-04 17:40] VITALS: BP 132/69
[2023-02-04 18:50] VITALS: BP 106/57
--- NOTE | 2023-02-04 19:45 | NUR ---
REPORT GIVEN BY DAY SHIFT NURSE. PT RESTING COMFORTABLY IN BED WITH BREATHING EVEN AND UNLABORED. NO SIGNS OF ACUTE DISTRESS. SAFETY PRECAUTIONS IN PLACE. CALL LIGHT WITHIN REACH.
[2023-02-04 19:54] VITALS: BP 107/57
--- NOTE | 2023-02-04 21:08 | EKG ---
[facility] [address] [facility] [place] [address] Signed Normal sinus rhythm Normal ECG When compared with ECG of 19-APR-2022 11:39, T wave inversion now evident in Inferior leads Confirmed by Rohini Louise MD () on 02/04/2023 9:08:41 PM Electronically Signed By: ROHINI LOUISE MD 02/04/232107 PATIENT NAME: WILBERT KUO SABINO Electrocardiogram DATE OF : 76 PHYSICIAN: ROHINI LOUISE MD REPORT #: [id number] REPORT IS CONFIDENTIAL AND NOT TO BE RELEASED WITHOUT AUTHORIZATION
--- NOTE | 2023-02-04 22:14 | NUR ---
SCD ALARMING. PT WITH EYES CLOSED, BUT LIFTED LEG FOR THIS RN TO ADJUST THE SCD. CPOX READING O2 95%.
[2023-02-05 01:35] VITALS: BP 120/64
--- NOTE | 2023-02-05 01:40 | NUR ---
PT. VITAL SIGNS TAKEN AND DOCUMENTED. PATIENT DENIES THE NEED TO URINATE. PT. RN NOTIFIED. FRESH WATER PROVIDED. CALL LIGHT LEFT WITHIN REACH. NO OTHER IMMEDIATE NEEDS AT THIS TIME.
[2023-02-05 05:25] VITALS: BP 128/76
--- NOTE | 2023-02-05 05:28 | NUR ---
PT. VITALS AND I/OS CHARTED ACCORDINGLY. ROOM TIDIED, TRASH CANS EMPTIED. PT. UP TO USE BR. IV PUMP POLE PLUGGED BACK IN, WOUND VAC PLUGGED IN AND NOT KINKED. SCDs REATTACHED AND WORKING PROPERLY. FRESH WATER AND JUICE PROVIDED. SNACK PROVIDED. CALL LIGHT LEFT WITHIN REACH, NO OTHER IMMEDIATE NEEDS AT THIS TIME.
[2023-02-05 05:50] LABS: BASOPHILS 0.9 % (0-2); EOSINOPHILS 2.1 % (0-6); HEMATOCRIT 37.9 % (35.0-50.0); HEMOGLOBIN 13.1 g/dL (12.0-18.0); MCH 29.8 (27-36); MCHC 34.5 g/dl (30-36); MCV 86.4 fl (81-99); MONOCYTES 4.1 % (0-12); NEUTROPHILS 54.9 % (39-80); PLATELET COUNT 445 K/uL (140-440); RBC 4.39 M/ul (4.3-5.7); RDW 12.8 (10.5-15.0)
[2023-02-05 06:01] LABS: ANION GAP 12.1 (7-21); BUN/CREATININE RATIO 18.82 (6.0-28.6); CALCIUM 8.8 mg/dL (8.5-10.1); CREATININE, SERUM 0.85 mg/dL (0.55-1.02); POTASSIUM 4.1 mmol/L (3.5-5.1)
--- NOTE | 2023-02-05 07:15 | NUR ---
RECEIVED REPORT FROM CHILDREN TEACHER RN. PT IS IN BED AWAKE. PT ASKING FOR HOSPITAL PHONE FOR ROOM. PHONE PROVIDED TO PT. NO FURTHER NEEDS VOICED. CALL LIGHT WITHIN REACH.
[2023-02-05 08:14] VITALS: BP 138/59
--- NOTE | 2023-02-05 09:10 | NUR ---
JESSICA WOUND VAC ORDERED AND UP TO MD STATION FOR SIGNATURE.
--- NOTE | 2023-02-05 09:25 | NUR ---
PT AWAKE AND ABLE TO ENGAGE IN CONVERSATION. I EXERCISED MINISTRY OF PRESENCE PT TALKED OF HEALTH AND ELENA JOURNEY. CONSENTED TO PRAYER. PRAYED FOR ONGOING HEALING AND AWARENESS OF DIVINE PRESENCE. LEFT GUIDEPOST AND COLORING BOOK WITH CONTACT CARD.
--- NOTE | 2023-02-05 09:34 | NUR ---
INTO SEE PATIENT. PATIENT AWAKE TALKING TO SABINO GRISSOM FROM SPIRITUAL CARE. ADVISED PATIENT THAT WOUND VAC PAPERWORK AWAITING SIGNATURE FROM DR. GOMEZ. PATIENT STATES SHE IS STILL HAVING SOME PAIN AND DOES NOT FEEL SHE IS READY FOR DISCHARGE TODAY. ADVISED THAT WE WILL LIKELY NOT RECV THE WOUND VAC TODAY SO HER DISCHARGE IS TENTATIVE FROM THAT PERSPECTIVE.
[2023-02-05] MEDS ORDERED: PRENATAL VITAM1 EAC6 PO (10:08)
--- NOTE | 2023-02-05 10:09 | NUR ---
MED REC COMPLETE
--- NOTE | 2023-02-05 11:44 | OR ---
[facility] [address], [place] [address] Signed DATE OF OPERATION: 02/04/2023 SURGEON: Bhargav Gomez MD PREOPERATIVE DIAGNOSES: 1. Necrotic soft tissue mass of right perineum. 2. Poorly controlled diabetes mellitus. POSTOPERATIVE DIAGNOSES: 1. Ischial decubitus ulceration, full-thickness skin loss with underlying granulation tissue. 2. Diabetes, poorly controlled. PROCEDURES: 1. Exam under anesthesia. 2. Excision and debridement of skin and fat 6 x 7 x 1 cm, right ischial prominence. 3. Wound VAC application. ANESTHESIA: General LMA, Kartik Multani CRNA. INDICATIONS: This 43-year-old white woman is morbidly obese and has diabetes, which is generally poorly controlled. She presented to the emergency room where she was evaluated by Dr. Castillo and Dr. Kenneth Sawyer with a necrotic soft tissue area of the right perineum. Her blood sugar was noted to be 505. She was admitted, given intravenous fluids, IV antibiotic meropenem and initiation of glucose control with insulin (blood sugar now 300) and now for incision and drainage and debridement of necrotic tissue of the right perineum. She understands the risk of bleeding, infection, need for elaborate wound care and so forth. Of special note, she has had multiple soft tissue infections in the past including excision and debridement of right breast abscess by me in the past two years, as well as other areas of infection. The patient understands the risk of bleeding, infection, cosmetic deformity, and other unforeseen complications related to this procedure and wished to proceed. FINDINGS: In the right ischial area, there was a full-thickness loss of tissue with a dense thick Electronically Signed By: BHARGAV GOMEZ MD 02/05/23 1144 PATIENT NAME: WILBERT KUO OPERATIVE REPORT DATE OF : 76 REPORT #: [id number] PHYSICIAN: BHARGAV GOMEZ MD PCP: PRATEEK CHAPMAN MD REPORT IS CONFIDENTIAL AND NOT TO BE RELEASED WITHOUT AUTHORIZATION [facility] [address], [place] [address] Signed black eschar with underlying mucopurulent changes. Notably, however, this area had lifted away from the subcutaneous fat, which did have reasonable granulation, though there was a mucopurulent covering on it. Anatomic excision of the area was undertaken. Excision size was 7 x 6 x 1 cm in depth. It was deemed most advisable under her circumstances to apply wound VAC dressing for which later grafting or secondary closure might be possible. DESCRIPTION OF PROCEDURE: The patient was brought to the operating room and given general LMA type anesthetic and placed in the lateral decubitus position left side down. The right buttock area was easily identified and showing the dense eschar that was extending down the subcutaneous tissue. Surrounding cellulitic changes were not prominent as they were at the time of initial evaluation in the emergency room. The area was prepared with a Betadine based solution and draped sterilely. Meropenem antibiotic had been given. Photographs were taken. The area of skin necrosis was excised with a 15 blade in an anatomic configuration. The edges of the skin were somewhat heaped up indicative of a chronically problematic wound. Upon excision of the eschar and undersurface revealed was an area of surprisingly well granulating soft tissue of the buttock itself. There was mucopurulent covering of course. The area was debrided a bit with a banjo curette after complete excision of the eschar. The eschar itself measured 6 x 7 x 1 cm in depth. Irrigation was undertaken. Hemostasis was assured with electrocautery. A wound VAC dressing was applied; it appeared that once the wound was granulating without signs of infection, that secondary closure might be possible or barring that skin graft as appropriate. The area was sterilely shaved and Mastisol applied and subsequently thin layer of DuoDerm particularly inferiorly. A regular black wound VAC sponge was cut to size to fit the area and the adhesive applied over that and the wound VAC applied to 120 mmHg suction. The seal remained good. The patient was transferred to her hospital bed remaining in the lateral decubitus position left side down after extubation. She tolerated the procedure well. Blood loss was minimal. MD ADRY Garay/SHAMIKAL /[id number] cc: Dr. Castillo Electronically Signed By: BHARGAV GOMEZ MD 02/05/23 1144 PATIENT NAME: WILBERT KUO OPERATIVE REPORT DATE OF : 76 REPORT #: [id number] PHYSICIAN: BHARGAV GOMEZ MD PCP: PRATEEK CHAPMAN MD REPORT IS CONFIDENTIAL AND NOT TO BE RELEASED WITHOUT AUTHORIZATION [address] [address] Signed Prateek Chapman MD Copies: PRATEEK CHAPMAN MD ~ Electronically Signed By: BHARGAV GOMEZ MD 02/05/23 1144 PATIENT NAME: WILBERT KUO OPERATIVE REPORT DATE OF : 76 REPORT #: [id number] PHYSICIAN: BHARGAV GOMEZ MD PCP: PRATEEK CHAPMAN MD REPORT IS CONFIDENTIAL AND NOT TO BE RELEASED WITHOUT AUTHORIZATION
--- NOTE | 2023-02-05 11:55 | NUR ---
ROUNDED ON PT. PT IN BED. NO NEEDS VOICED. CALL LIT WITHIN REACH.
--- NOTE | 2023-02-05 11:56 | NUR ---
ORDERS, FACESHEET, [phone]. CALLED TO SPEAK WITH [employer] TO ADVISE THAT DOCUMENTATION HAS BEEN SENT. [employer] REQUEST INFORMATION BE EMAILED THEY HAVE BEEN HAVING DIFFICULTIES WITH THEIR FAX SYSTEM AT THIS TIME.
--- NOTE | 2023-02-05 13:15 | NUR ---
ROUNDED ON PT. PT SITTING AT SIDE OF BED EATING LUNCH. NO NEEDS VOICED. CALL LIGHT WITHIN REACH.
--- NOTE | 2023-02-05 14:01 | NUR ---
PATIENT FINISHID IN BR, LARGE VOID AND SMALL BM. LINEN AND GOWN CHANGED. PATIENT BACK INTO BED. CALL LIGHT AND PERSONAL ITEMS IN EASY REACH.
[2023-02-05 14:49] VITALS: BP 103/62
--- NOTE | 2023-02-05 16:17 | NUR ---
ROUNDED ON PT. PT VOICES NO NEEDS. CALL LIGHT WITHIN REACH.
[2023-02-05 17:23] VITALS: BP 130/60
--- NOTE | 2023-02-05 18:51 | NUR ---
ROUNDED ON PT. PT FINISHING UP DINNER. VOICED NO NEEDS AT THE MOMENT. CALL LIGHT WITHIN REACH.
--- NOTE | 2023-02-05 19:33 | NUR ---
RECEIVED REPORT FROM DAY SHIFT RN. PT UP WITH MATH TUTOR TO THE RESTROOM AT THIS TIME. SAFETY PRECAUTIONS IN PLACE. WOUND VAC IN PLACE. NO NEEDS AT THIS TIME.
[2023-02-05 20:53] VITALS: BP 112/69
--- NOTE | 2023-02-06 01:37 | NUR ---
PATIENT ASSISTED TO THE BR A SBA. PATIENT ABLE TO VOID. PATIENT IS BACK IN BED RESTING. IV INFUSING. WOUND VAC IN PLACE. PATIENT DENIES ANY FURTHER NEEDS. CALL LIGHT IN REACH.
[2023-02-06 06:03] VITALS: BP 144/69
[2023-02-06 06:07] LABS: BASOPHILS 0.6 % (0-2); EOSINOPHILS 2.7 % (0-6); HEMATOCRIT 34.4 % (35.0-50.0); HEMOGLOBIN 11.3 g/dL (12.0-18.0); MCH 28.8 (27-36); MCHC 32.9 g/dl (30-36); MCV 87.4 fl (81-99); MONOCYTES 7.5 % (0-12); NEUTROPHILS 47.2 % (39-80); PLATELET COUNT 353 K/uL (140-440); RBC 3.93 M/ul (4.3-5.7); RDW 12.7 (10.5-15.0)
[2023-02-06 06:13] LABS: ANION GAP 11.4 (7-21); BUN/CREATININE RATIO 20.93 (6.0-28.6); CALCIUM 8.6 mg/dL (8.5-10.1); CREATININE, SERUM 0.86 mg/dL (0.55-1.02); POTASSIUM 4.4 mmol/L (3.5-5.1)
--- NOTE | 2023-02-06 07:25 | NUR ---
RECEIVED REPORT FROM DATA TECHNICIAN RN. PT IS LAYING IN BED READING A BOOK. PT REPORTS PAIN BUT WANTS TO HOLD OFF ON PAIN MEDICATIONS FOR THE MOMENT. ASSESSMENT PERFORMED. NO FURTHER NEEDS VOICED. CALL LIGHT WITHIN REACH.
--- NOTE | 2023-02-06 08:20 | NUR ---
Patient in bed, acu check completed. am care completed. pt has no other needs at this time. call light within reach.
--- NOTE | 2023-02-06 08:50 | NUR ---
ADMIN ONE TAB NORCO 5/325MG FOR REPORTS OF 1010 BUTTOCK/WOUND SITE BESS.
[2023-02-06 09:44] VITALS: BP 145/83
--- NOTE | 2023-02-06 10:06 | NUR ---
ADDITIONAL CHART NOTES EMAILED TO [facility] AT [facility] FOR AUTHORIZATION.
--- NOTE | 2023-02-06 10:13 | NUR ---
EXERCISED MINISTRY OF PRESENCE PT TALKED OF MEDICAL JOURNEY TO THIS POINT. CONSENTED TO PRAYER. PRAYED FOR ONGOING HEALING. SHORT VISIT DUE TO PT PHYSICAL DISCOMFORT.
--- NOTE | 2023-02-06 12:05 | NUR ---
ROUNDED ON PT. ADMINISTERED SLIDING SCALE. PT REPORTS HER PAIN IS TOLERABLE. PT SITTING ON SIDE OF BED EATING LUNCH. NO FURTHER NEEDS VOICED. CALL LIGHT WITHIN REACH.
[2023-02-06 13:59] VITALS: BP 128/86
--- NOTE | 2023-02-06 15:45 | NUR ---
ROUNDED ON PT. PT IS SLEEPING WITH EYES CLOSED. RESPIRATIONS EVEN AND REGULAR. CALL LIGHT WITHIN REACH.
[2023-02-06 17:44] VITALS: BP 146/77
--- NOTE | 2023-02-06 20:30 | NUR ---
in to assist pt to the toilet, sba with iv pole, back to bed
[2023-02-06 21:06] VITALS: BP 151/87
--- NOTE | 2023-02-06 22:34 | NUR ---
PT IV ACCESS LOST AT THIS TIME. THIS NURSE AND 2 OTHER NURSES ATTEMPTED TO GAIN IV ACCESS WITH NO SUCCESS. PT EATING ALL MEALS AND DRINKING PO FLUIDS. DR. GOMEZ NOTIFIED AND ORDERS TO DISCONTINUE IV FLUIDS AND NO IV ACCESS OKAYED BY .
[2023-02-07 05:34] LABS: BASOPHILS 0.8 % (0-2); EOSINOPHILS 2.7 % (0-6); HEMATOCRIT 34.5 % (35.0-50.0); HEMOGLOBIN 11.8 g/dL (12.0-18.0); LYMPHOCYTES 44.1 % (24-44); MCH 29.5 (27-36); MCHC 34.1 g/dl (30-36); MCV 86.6 fl (81-99); MONOCYTES 6.8 % (0-12); NEUTROPHILS 45.6 % (39-80); PLATELET COUNT 384 K/uL (140-440); RBC 3.99 M/ul (4.3-5.7); RDW 13.1 (10.5-15.0)
[2023-02-07 05:47] LABS: ANION GAP 10.5 (7-21); BUN/CREATININE RATIO 23.68 (6.0-28.6); CREATININE, SERUM 0.76 mg/dL (0.55-1.02); POTASSIUM 4.5 mmol/L (3.5-5.1)
[2023-02-07 06:31] VITALS: BP 125/83
--- NOTE | 2023-02-07 07:10 | NUR ---
RECEIVED REPORT FROM [facility] NURSE. PT IS A/O, RESPIRATIONS EVEN AND REGULAR. WOUND VAC IN PLACE. PT IS SL. DENIES NEEDS ATT.
[2023-02-07 08:01] VITALS: BP 140/83
[2023-02-07 14:10] VITALS: BP 125/68
[2023-02-07 17:52] VITALS: BP 140/72
--- NOTE | 2023-02-07 18:14 | NUR ---
ROUNDED ON PT. PT IS A/O, RESPIRATIONS EVEN AND REGULAR. PT IS AWARE THAT SHE IS TO BE NPO AT MIDNIGHT. DENIES NEEDS/COMPLAINTS ATT. CALL LIGHT WITHIN REACH.
--- NOTE | 2023-02-07 19:02 | NUR ---
SHIFT REPORT RECEIVED FROM DAYSHIFT GREG PRASAD AT BEDSIDE, pt AWAKE AND WATCHING TV. WOUND VAC ON CONTINUOUS, SET TO 120MMHG. DRESSING WNL, NO LEAKS NOTED. pt IN GOOD SPIRITS, LARS NEEDS OR CONCERNS. CALL LIGHT IN REACH.
[2023-02-07 21:03] VITALS: BP 134/93
--- NOTE | 2023-02-07 21:05 | NUR ---
IN TO GET VS, ACCU CHECK DONE, HIGH VALUE REPORTED TO THE RN
--- NOTE | 2023-02-07 21:20 | NUR ---
IN TO RE -TEST PT BLOOD SUGAR PER RN, NO FURTHER NEEDS
--- NOTE | 2023-02-07 21:45 | NUR ---
ASSESSMENT COMPLETE, SCHEDULE DMEDS GIVNE. ACCUCHECK RESULT OF 296, INSULIN SS SHORT AND LONG ACTING GIVEN-SEE EMAR. pt REPORTS PAIN 10/10 TO BUTTOCKS, WOUND VAC DRESSING REMAINS WNL, WOUND VAC REMAINS AT CONTINUOUS SUCTION, 120MMHG. PRN PAIN MEDICAITON GIVEN. IV SITE WNL, FLUSHES EASILY, SALINE LOCKED. NO ADDITIONAL NEEDS, pt ON TIOLET, ATTEMPTING TO VOID AND HAVE BM.
--- NOTE | 2023-02-07 22:13 | NUR ---
spoke to dr omalley regarding scheduled accuchecks, pt currently on high insulin ss lispro wmhs, telephone order read back to keep order insulin ss lispro high but make q6h to start at 0200. leave insulin long acting order as is. shahram aware pt previously on lr at 85mls/hr, to resume at midnight per dr larkin's order. no new orders regarding iv fluids recieved from dr omalley. broker in chargezoë falcon updated.
--- NOTE | 2023-02-07 23:19 | NUR ---
pt HAD LARGE BM, REPORTED BY RN ILEANA WHO ASSISTED pt BACK TO BED EARLIER IN SHIFT. pt REFUSED SCHEDULED MIRALAX, STATING, "OH NO I CAN'T TAKE THAT, IT'LL MAKE ME SICK AND I DON'T THINK THE DOCTOR WANTS ME THROWING UP RIGHT BEFORE SURGERY". CLINICAL JUDGEMENT, MIRNIMCO DC'D-DISCUSSED WITH ELECTRIC DISTRIBUTION ENGINEER. pt TOOK SCHEDULED SENNA W/ OTHER EVENING MEDS AT START OF SHIFT.
--- NOTE | 2023-02-08 00:05 | NUR ---
PT ate small sf snack, now npo per md orders. iv site wnl, iv fluids infusing as directed. call light in reach.
--- NOTE | 2023-02-08 01:52 | NUR ---
pt resting in bed, on left side. wound vac remains unchanged, cont w/ suction at 120mmhg. iv site wnl, fluids infusing as directed. no needs or concerns verbalized. call light in reach.
--- NOTE | 2023-02-08 03:08 | NUR ---
accucheck result of 234, insulin ss given-see emar. pt remains npo. iv fluids infusing as directed, iv site wnl. pt up to void and back in bed. wound vac remains unchanged, very scant serosanguineous drainage in canister. no additional needs, call light in reach.
[2023-02-08 05:29] VITALS: BP 125/60
[2023-02-08 05:30] LABS: BASOPHILS 0.7 % (0-2); EOSINOPHILS 2.5 % (0-6); HEMATOCRIT 36.1 % (35.0-50.0); HEMOGLOBIN 11.9 g/dL (12.0-18.0); LYMPHOCYTES 44.4 % (24-44); MCHC 32.8 g/dl (30-36); MCV 88.4 fl (81-99); MONOCYTES 5.7 % (0-12); NEUTROPHILS 46.7 % (39-80); PLATELET COUNT 371 K/uL (140-440); RBC 4.09 M/ul (4.3-5.7); RDW 12.7 (10.5-15.0)
--- NOTE | 2023-02-08 05:35 | NUR ---
VS AND I7O'S COLLECTED. pt IN GOOD SPIRITS, CONVERSATIONAL. DENIES NEEDS OR CONCERNS, CALL LIGHT IN REACH. IV SITE WNL, FLUIDS INFUSING DIRECTED.
[2023-02-08 05:38] LABS: ANION GAP 8.2 (7-21); BUN/CREATININE RATIO 23.65 (6.0-28.6); CALCIUM 8.9 mg/dL (8.5-10.1); CREATININE, SERUM 0.93 mg/dL (0.55-1.02); POTASSIUM 4.2 mmol/L (3.5-5.1)
--- NOTE | 2023-02-08 07:25 | NUR ---
REPORT RECEIVED FROM NIGHT RN - PT RESTING IN BED ON SIDE, WAKES EASILY FOR INTRODUCTION. DENIES NEEDS AT THIS TIME. CALL LIGHT IN REACH.
--- NOTE | 2023-02-08 08:50 | NUR ---
ASSESSMENT COMPLETE - PT AAO, TALKATIVE AND UNDERSTANDS POC TO SWITCH WOUND VAC TODAY. ORAL MEDS ADMINISTERED WITH SIP OF APPLE JUICE. SS AND BASAL INSULIN ADMINISTERED - WILL CONTINUE TO MONITOR. IV SITE PATENT. PT REPORTS 10 PAIN BUT STATES SHE DOES NOT WANT ANY PAIN MEDS AT THIS TIME, SITTING UP IN BED ON WOUND WITHOUT INDICATIONS OF PAIN. CALL LIGHT IN REACH.
[2023-02-08 09:36] VITALS: BP 134/86
--- NOTE | 2023-02-08 09:37 | NUR ---
PT SITTING ON BED, VITALS AND I/O'S COMPLETED. [place] COMPLETED. GOWN CHANGED. CALL LIGHT WITHIN REACH.
--- NOTE | 2023-02-08 12:00 | NUR ---
RN ROUNDING WITH MD AT BEDSIDE, WOUND VAC DRESSING TAKEN DOWN AND WOUND ASSESSED. VERBAL ORDERS RECEIVED TO CLEANSE WOUND WITH SALINE, AND REAPPLY WOUND VAC - COMPLETE WITH ASSISTANCE OF HAND FRETTED INSTRUMENT MAKER. PT PROVIDED LUNCH NO LONGER NPO, CUSTOM ORDER CALLED DOWN.
[2023-02-08 12:59] VITALS: BP 139/80
--- NOTE | 2023-02-08 14:22 | NUR ---
PT SITTING UP IN BED EATING MCDONALDS HER BROUGHT IN - 7 UNITS INSULIN COVERAGE ADMINISTERED.
--- NOTE | 2023-02-08 15:48 | NUR ---
PRN PAIN MEDICATION ADMINISTERED FOR 10/10 PAIN OF WOUND AREA. PT UP TO BATHROOM WALKING STEADY ON FEET.
[2023-02-08 17:41] VITALS: BP 147/70
--- NOTE | 2023-02-08 17:41 | NUR ---
PT RESTING IN BED ON SIDE ASLEEP UPON ENTERING ROOM - WAKES EASILY. STATES PAIN IS 7/10. INSULIN COVERAGE ADMINISTERED.
--- NOTE | 2023-02-08 17:47 | NUR ---
PT USES CALL LIGHT TO REPORT THAT HER DINNER THAT SHE ORDERED WAS NOT SENT UP RIGHT - PT STATES SHE ORDERED A DOCUMENT CONTROL SPECIALIST SALAD AND WAS SERVED A SIDE SALAD. DINNER TRAY ALSO INCLUDED 2 BEEF TACOS WITH ALL TOPPINGS, COTTAGE CHEESE, BROCCOLI, ICE TEA, SALAD DRESSING AND SALSA. PT WAS EDUCATED ON CARB LIMIT FOR DIABETIC DIET. PTS BLOOD SUGAR HAS BEEN UPPER LIMITS ALL DAY DESPITE INSULIN COVERAGE. PT THEN SLAMMED LID DOWN ON TRAY AND STATES "IM NOT EATING ANYTHING THEN CAUSE NOT HAVING A DOCUMENT CONTROL SPECIALIST SALAD RUINS ALL OF THIS". TRAY WAS REMOVED FROM ROOM.
--- NOTE | 2023-02-08 19:15 | NUR ---
REPORT RECEIVED FROM GREG SOTOMAYOR. pt RESTING IN BED ON LEFT SIDE, BREATHING UNLABORED. WOUND VAC IN PLACE. NO DISTRESS NOTED.
[2023-02-08 21:23] VITALS: BP 141/74
--- NOTE | 2023-02-08 21:38 | NUR ---
pt SLEEPING, AWAKENS TO VOICE. RATES PAIN 10/10 IN BUTT AT WOUND. pt ON PHONE AT THIS TIME MESSAGING BOYFRIEND. VSS. PRN PAIN MEDICATION ADMINISTERED. ASSESSMENT COMPLETE. WOUND VAC IN PLACE, 120 MMHG. IV SL WNL. PO SNACK PROVIDED. CALL LIGHT IN REACH.
--- NOTE | 2023-02-09 00:41 | NUR ---
CHECKED ON pt. RESTING IN BED WITH EYES CLOSED. BREATHING EQUAL AND UNLABORED. WOUND VAC ON AND PLUGGED IN.
--- NOTE | 2023-02-09 02:20 | NUR ---
CALL LIGHT ANSWERED. SBA TO RESTROOM FOR VOID AND BACK TO BED. pt COMPLAINS OF PAIN, 9/10 IN BUTT AT WOUND. PRN PAIN MEDICATION ADMINISTERED. ICE WATER REFILLED. pt REQUESTS TO BE WOKE UP TO ORDER BREAKFAST. DISCUSSED PLAN OF CARE. CALL LIGHT IN REACH.
[2023-02-09 05:40] VITALS: BP 149/76
--- NOTE | 2023-02-09 05:40 | NUR ---
PT AWAKE AND SITTING UP IN BED. VITALS AND IS AND OS COMPLETE. PT DECLINED RESTROOM NEEDS. PT WILL ORDER SELF BREAKFAST AT 6. NO NEEDS. CALL LIGHT WITHIN REACH
[2023-02-09 05:41] LABS: BASOPHILS 0.9 % (0-2); EOSINOPHILS 2.2 % (0-6); HEMOGLOBIN 11.8 g/dL (12.0-18.0); LYMPHOCYTES 46.4 % (24-44); MCH 29.1 (27-36); MCHC 32.8 g/dl (30-36); MCV 88.8 fl (81-99); MONOCYTES 5.3 % (0-12); NEUTROPHILS 45.2 % (39-80); PLATELET COUNT 342 K/uL (140-440); RBC 4.06 M/ul (4.3-5.7); RDW 13.2 (10.5-15.0)
[2023-02-09 05:55] LABS: ANION GAP 9.4 (7-21); BUN/CREATININE RATIO 22.22 (6.0-28.6); CALCIUM 8.7 mg/dL (8.5-10.1); CREATININE, SERUM 0.9 mg/dL (0.55-1.02); POTASSIUM 4.4 mmol/L (3.5-5.1)
--- NOTE | 2023-02-09 06:55 | NUR ---
IN ROOM TO CHECK ON pt. SITTING UP AT SIDE OF BED WORKING ON CROSSWORD PUZZLE. pt HAS NO COMPLAINTS OF PAIN AT THIS TIME. CALL LIGHT WITHIN REACH.
--- NOTE | 2023-02-09 09:13 | NUR ---
PT REQUESTED SHARPENER FOR COLORED PENCILS. DECLINED OTHER SERVICES.
[2023-02-09 09:53] VITALS: BP 137/82
--- NOTE | 2023-02-09 09:55 | NUR ---
OVER TO SEE PATIENT, PATIENT UP IN SHOWER. PER NOTE FROM DR. GOMEZ PATIENT SCHEDULED FOR WOUND CLOSURE TOMORROW. WILL ADVISE ROTECH OF NO FURTHER NEED FOR THE WOUND VAC. WILL CONTINUE TO FOLLOW UP WITH PATIENT TO DETERMINE CASE MANAGEMENT NEEDS.
[2023-02-09 13:38] VITALS: BP 134/76
--- NOTE | 2023-02-09 15:18 | NUR ---
JUST ASKED PATIENT IF SHE WOULD LIKE TO DO A BED BATH AND SHE REFUSED. SHE SAID SHE DIDN'T WANT TO DRY OUT HER SKIN.
[2023-02-09 18:35] VITALS: BP 145/71
--- NOTE | 2023-02-09 19:20 | NUR ---
REPORT RECEIVED FROM GREG AREVALO. ASSUMED CARE OF pt.
[2023-02-09 20:42] VITALS: BP 112/82
--- NOTE | 2023-02-09 21:11 | NUR ---
pt RESTING IN BED AWAKE, WATCHING VIDEO CHAT FROM BOYFRIEND. ASSESSMENT COMPLETE. WOUND VAC IN PLACE AT 120 MM HG. IV SITE FLUSHED WNL, TKO AT THIS TIME. DISCUSSED NPO AT MIDNIGHT WITH pt. pt REQUESTING PRN PAIN MEDICATION FOR 5-6/10 PAIN IN BUTTOCK AT WOUND. ICE WATER REFILLED AND IN REACH. SS INSULIN AND SCHEDULED INSULIN ADMINISTERED PER MD INSTRUCTION. pt HAS CALL LIGHT IN REACH. NO ADDITIONAL REQUESTS AT THIS TIME.
--- NOTE | 2023-02-09 21:41 | NUR ---
PATIENT IV AND WOUND VAC UNPLUGGED AND PT. ESCORTED TO BATHROOM. PT. BACK IN BED WOUND VAC AND IV PUMP PLUGGED BACK IN. CALL LIGHT LEFT WITHIN REACH. BED TIDIED, ROOM TIDIED. NO OTHER IMMEDIATE NEEDS AT THIS TIME.
--- NOTE | 2023-02-09 23:08 | NUR ---
IN ROOM TO CHECK ON pt. LYING ON LEFT SIDE, BREATHING UNLABORED. WOUND VAC PLUGGED INTO POWER AND IN PLACE.
[2023-02-10] VITALS (7 sets, daily range): BP systolic 127–148; BP diastolic 70–91
--- NOTE | 2023-02-10 00:11 | NUR ---
pt RESTING IN BED WITH EYES CLOSED ON RIGHT SIDE. BREATHING UNLABORED. PO FLUIDS REMOVED AT THIS TIME, NPO. IVF INFUSING WNL ORDERED.
--- NOTE | 2023-02-10 02:52 | NUR ---
pt RESTING IN BED ON BACK. EYES CLOSED, BREATHING UNLABORED. IVF INFUSING WNL. LIGHTS OFF IN ROOM. CALL LIGHT IN REACH.
--- NOTE | 2023-02-10 04:28 | NUR ---
CALL LIGHT ANSWERED. SBA TO RESTROOM FOR UNMEASURED VOID, MISSED HAT. pt BACK IN BED. VS COMPLETE, STABLE. pt DENIES PAIN. WOUND VAC IN PLACE, 120 MM HG. IVF INFUSING WNL. CALL LIGHT IN REACH. LIGHTS OFF IN ROOM.
--- NOTE | 2023-02-10 07:55 | NUR ---
recieved shift report from night nurse. patient is currently in bed watching tv. no other cares needed at this time. call light within reach
--- NOTE | 2023-02-10 09:34 | NUR ---
DELIVERED PENCIL SHARPENER REQUESTED YESTERDAY. EXERCISED MINISTRY OF PRESENCE PT TALKED OF HOPE FOR INCREASED COMFORT AND ANTICIPATED DISCHARGE. CONSENTED TO PRAYER. PRAYED FOR FARRIS AND COMPLETE RECOVERY.
--- NOTE | 2023-02-10 09:53 | NUR ---
PT WAS GIVEN HYDROCHLORINE WIPES TO PREP BODY FOR SURGERY. SHE WAS EDUCATED NOT TO WIPE HER FACE OR GROIN BUT EVERY WHERE ELSE WAS OK. MEDS GIVEN. PT STATES NO PAIN. NO OTHER CARES GIVEN AT THIS TIME. CALL LIGHT WITHIN REACH
--- NOTE | 2023-02-10 10:58 | NUR ---
PATIENT AND I DID HER SURGICAL WIPE DOWN. NEW GOWN AND SOCKS PATIENT SAID HER BED LINENS WERE CHANGED LAST NIGHT. SCDS ON.
--- NOTE | 2023-02-10 17:01 | NUR ---
PT CHRISTINE RTHAT IF SHE DOESN'T GET HER PROCEDURE DONE BY 1800 TODAY SHE REFUSES TO GO FORWARD WITH THE PROCEDURE TODAY AND WILL BE OPEN TO IT TOMORROW. SHE STATES THAT SHE WOULD HAVE GONE PAST 24 HRS OF NO FOOD and she didnt agree to wait that long to eat. she states that she will order pizza against hospital advice and doctors orders. I BARGAINED WITH PATIENT EXPLAINING THAT SITUATIONS CAME UP THAT PUSHED BACK EVERYONES SURGERY ANDNAZ SAYS SHE KNOWS SITUATIONS COME UP BUT SHE IS STARVING. SO I GOT HER TO AGREE TO WAIT UNTIL 1900. SHE STATES THAT SHE WILL WAIT BUT AFTER 1900 SHE WILL NOTDO THE PROCEDURE TODay. NO OTHER CARES ARE NEEDED AT THIS TIME. CALL LIGHT WITHIN REACH
--- NOTE | 2023-02-10 17:38 | NUR ---
DAY SURGERY NURSE CAME TO GET PT AND TOOK HER DOWN TO AWAIT HER PROCEDURE.
--- NOTE | 2023-02-10 18:45 | NUR ---
02/10/[id number] Ximena Iglesias 183- PT ARRIVES TO UNIT VIA BED FROM OR. PT IS NONAROUSABLE TO TACTILE STIMULI AT THIS TIME. PT POSITIONED ON RT SIDE W/10L OF O2 VIA MASK, O2 >90% AT THIS TIME. RESPIRATIONS ARE EVEN AND UNLABORED, NO SIGNS OF DISTRESS. BHARGAV LAMBERT AT BEDSIDE GIVING REPORT. 184- PT OPENS EYES ON OCCASION TO TACTILE STIMULI BUT NO VERBAL RESPONSE AT THIS TIME. 184- PT RESPONDS ACCORDINGLY W/NODS TO QUESTIONS AND NODS YES THAT SHE IS COMFORTABLE AT THIS TIME.
--- NOTE | 2023-02-10 19:14 | NUR ---
PT HAS RETURNED FROM DAY SURGERY AND VITALS WERE TAKEN AND ARE STABLE. PATIENT IS CURRENTLY RESTING ON HER LEFT SIDE. NO OTHER CARES NEEDED AT THIS TIME CALL LIGHT WITHIN REACH
--- NOTE | 2023-02-10 19:20 | NUR ---
shift report received from daysnjft rn benny/gabi at bedside. pt awake and resting in bed, somewhat drowsy. denies needs or concerns. on ra, rr even and unlabored. no distress noted. cpox in place. dressing to right buttocks intact, very faint red spotted shadowing noted along with scant yellow/creme colored shadowing to distal portion of dressing. call light in reach.
--- NOTE | 2023-02-10 20:22 | NUR ---
in room to collect post op vs, vss. pt continues to rest quietly in bed, awoke to voice. pt denies nausea and pain. iv site wnl, maintenance fluids resumed, infusing wnl. call light in reach.
--- NOTE | 2023-02-10 22:30 | NUR ---
SCHEDULED MEDS GIVEN, pt AWAKE AND IS AMBULATING WNL IN ROOM. FRESH FLUIDS PROVIDED, GAG REFLEX NOTED. pt TOOK MEDS WITHOUT ISSUE. INSULIN SS AND LONG ACTING INSULIN GIVEN-SEE EMAR. FOAM DRESSING REMAINS INTACT TO RIGHT BUTTOCKS. SMALL AMOUNT SEROSANGUINEOUS SHADOWING NOTED TO DRESSING. pt INTERACTIVE WITH DETECTIVE CAPTAIN. NO ADDITIONAL NEEDS, CALL LIGHT IN REACH.
[2023-02-11 01:14] VITALS: BP 133/67
--- NOTE | 2023-02-11 01:25 | NUR ---
IN ROOM TO COLLECT VS AND I&O'S, pt AWAKE. IV PUMP ALARMING, ISSUE RESOLVED. NEW BAG IV FLUIDS HUNG AND INFUSING DIRECTED-IV SITE WNL. FOCUSED ASSESSMENT COMPLETE, NO ACUTE CHANGES TO DRESSING TO BUTTOCKS, PRN PAIN MEDICAITON GIVEN FOR REPORTED 8/10 PAIN-SEE EMAR. CALL LIGHT IN REACH. NO ADDITIONAL NEEDS OR CONCERNS VERBALIZED.
--- NOTE | 2023-02-11 02:52 | NUR ---
CPOX ALARMING, ISSUE RESOLVED. SPO2 WNL ON RA, HR WNL. NO NEEDS OR CONCERNS VERBALIZED WHEN ASKED, CALL LIGHT IN REACH.
--- NOTE | 2023-02-11 04:43 | NUR ---
pt HAD A GOOD NIGHT. VSS, pt A/OX4. pt INDEPENDENT IN ROOM, CALLS APPROPRIATELY. SURGICAL SITE DRESSING TO RIGHT BUTTOCKS INTACT, WITH SMALL AMOUNT SERSANGUINEOUS SHADOWING AND VERY SCANT YELLOW COLORED DRAINAGE TO DISTAL END OF DRESSING. PAIN CONTROLLED WITH PRN PO PAIN MEDICATION. pt ON ADA DIET, INSULIN SS W/ ACCUCHECKS WMHS. NO NAUSEA REPORTED. pt ON PO ABX. IV FLUIDS INFUSING DIRECTED, IV TO LEFT FOREARM US GUIDED. AM LABS INCLUDE CMP. TENTATIVE DISCHARGE TODAY.
[2023-02-11 05:28] VITALS: BP 136/67
--- NOTE | 2023-02-11 05:35 | NUR ---
ROUNDED ON pt, pt AWAKE AND RESTING IN BED. LAB IN ROOM FOR AM LAB DRAW. NO NEEDS OR CONCERNS VERBALIZED BY pt WHEN ASKED. IV SITE WNL, FLUIDS INFUSING DIRECTED. CALL LIGHT IN REACH.
[2023-02-11 06:05] LABS: ALBUMIN/GLOBULIN RATIO 0.53 (1.1-2.4); ANION GAP 12.6 (7-21); BILIRUBIN, TOTAL 0.5 ng/dL (0.2-1.0); BUN/CREATININE RATIO 18.69 (6.0-28.6); CALCIUM 7.9 mg/dL (8.5-10.1); CREATININE, SERUM 1.07 mg/dL (0.55-1.02); POTASSIUM 4.6 mmol/L (3.5-5.1); PROTEIN, TOTAL 5.8 g/dL (6.4-8.2)
--- NOTE | 2023-02-11 07:19 | NUR ---
received report from noc nurse. pt is a/o, respirations even and regular. Denies needs/complaints att.
--- NOTE | 2023-02-11 07:57 | NUR ---
PATIENT SITTING UP ON EDGE OF BED COLORING. FRESH WATER GIVEN. CALL LIGHT IN REACH. NO FURTHER NEEDS AT THIS TIME.
[2023-02-11 08:02] VITALS: BP 147/90
--- NOTE | 2023-02-11 10:51 | NUR ---
Sitting up in bed. States she is concerned about having "bandaids or something to cover wound at home." Informed if Dr. Henry wants a dressing on site, staff may be able to provide some materials. Also wants a [facility] prescription for pain at DC. Encouraged her to speak with Dr. Henry regarding concerns and requests tomorrow prior to DC> Verbalizes understanding. Denies other needs at this time.
--- NOTE | 2023-02-11 10:58 | NUR ---
PT LOOKING FORWARD TO GOING HOME. EXERCISED MINISTRY OF PRESENCE PT SHARED ARTWORK AND TALKED OF CATS. DECLINED PRAYER TODAY. PRAYED SILENT PRAYER FOR HEALING.
--- NOTE | 2023-02-11 12:13 | NUR ---
MEDICATION ADMINISTRATION COMPLETED. PT IS A/O, RESPIRATIONS EVEN AND REGULAR. DENIES NEEDS ATT. CALL LIGHT WITHIN REACH.
[2023-02-11 13:27] VITALS: BP 151/77
--- NOTE | 2023-02-11 15:04 | NUR ---
PT REPORTING PAIN 10/10 TO R GLUT INCISION SITE. PRN PAIN MEDICATION ADMINISTERED. PT REQUESTING WOUND TO BE COVERED AFTER SHOWER. COVERED WITH ACTICOAT AND DUODERM.
--- NOTE | 2023-02-11 17:57 | NUR ---
REPORT RECEIVED FROM GREG PRASAD. PT SITTING UP ON EDGE OF BED EATING DINNER. PT REQUESTING ICE WATER. WILL ASK SUPERVISOR ORCHARD TO PROVIDE ICE WATER. PT DENIES ANY OTHER NEEDS AT THIS TIME. CALL LIGHT IN REACH.
--- NOTE | 2023-02-11 18:22 | NUR ---
IN TO COMPLETE ASSESSMENT. LUNG SOUNDS CLEAR. BOWEL TONES ACTIVE. PT REPORTING PAIN 7/10 TO WOUND SITE. PT DENIES PRN PAIN MEDICATION AT THIS TIME WHEN OFFERED. DRESSING TO RIGHT BUTTOCK C/D. NOTED ONE EDGE PEELING BACK. EDEMA NOTED TO BLE. PT DENIES NUMBNESS OR TINGLING IN EXTREMITIES. SCATTERED SCRATCHES/SCABS NOTED TO BLE AND BUE. PT DENIES ANY NEEDS AT THIS TIME. CALL LIGHT IN REACH.
[2023-02-11 18:23] VITALS: BP 138/78
--- NOTE | 2023-02-11 19:35 | NUR ---
REPORT RECEIVED FROM DAYSHIFT RN. PT RESTING COMFORTABLY IN BED. BREATHING EVEN AND UNLABORED. CALL LIGHT WITHIN REACH. SAFETY PRECAUTIONS IN PLACE.
[2023-02-11 20:52] VITALS: BP 151/88
--- NOTE | 2023-02-12 02:49 | NUR ---
THIS RN TOOK OVER CARE OF pt AT THIS TIME, RECEIVED VERBAL REPORT FROM GREG DON. IN ROOM TO ROUND ON pt, pt RESTING IN BED WITH EYES CLOSED. ON RA, RR EVEN AND UNLABORED. NO DISTRESS NOTED. CALL LIGHT IN REACH.
--- NOTE | 2023-02-12 04:17 | NUR ---
ROUNDED ON pt, pt RESTING QUIETLY IN BED WITH EYES CLOSED. pT RESTING ON LEFT SIDE. IV SITE WNL, REMAINS SALINE LOCKED. RR EVEN AND UNLABORED, CALL LIGHT IN REACH.
[2023-02-12 05:32] VITALS: BP 143/85
--- NOTE | 2023-02-12 05:52 | NUR ---
ROUNDED ON pt, pt AWAKE AND RESTING IN BED. VSS, I&O'S COMPLETED. DRESSING TO BUTTOCKS INTACT, SUTURES REMAINS UNDER DRESSING. pt RESTING IN BED, ON LEFT SIDE FOR COMFORT. NO ADDITIONAL NEEDS OR CONCERNS VERBALIZED. CALL LIGHT IN REACH.
--- NOTE | 2023-02-12 07:00 | NUR ---
REPORT RECEIVED FROM GREG BERNARD. PT SITTING UP IN BED COLORING. PT DENIES ANY NEEDS AT THIS TIME. CALL LIGHT IN REACH.
[2023-02-12 08:14] VITALS: BP 142/83
--- NOTE | 2023-02-12 08:18 | NUR ---
IN TO ADMINISTER MEDICATION, SEE MAR. PT TAKES PO MEDICATIONS WITH NO ISSUES. VITALS COMPLETE. ASSESSMENT COMPLETE. LUNG SOUNDS CLEAR. BOWEL TONES ACTIVE. PT REPORTING PAIN 10/10 IN RIGHT BUTTOCK AT WOUND SITE. PRN PAIN MEDICATION ADMINISTERED, SEE MAR. DRESSING TO RIGHT BUTTOCK NOTED TO BE PEELING OFF. PT REQUESTING TO REMOVE DRESSING BEFORE SHOWERING TODAY. PT DENIES NUMBNESS OR TINGLING AT THIS TIME. BREAKFAST TRAY ARRIVES. WATER PROVIDED. PT DENIES ANY OTHER NEEDS AT THIS TIME. CALL LIGHT IN REACH.
--- NOTE | 2023-02-12 10:00 | NUR ---
Dr. Curry stopped by my office. Let me know this pt will dc today. Stopped in pts room and asked if she has any needs for dc. She states she is calling a friend for a ride as we speak. She denies needs.
--- NOTE | 2023-02-12 10:49 | NUR ---
IN TO ROUND ON PT. PT REQUESTING HAT IN TOILET TO BE EMPTIED. HAT EMPTIED. PT AMBULATES TO RESROOM. VOID NOTED. HAT EMPTIED AGAIN. PT REPORTING PAIN 12/29 PT STATES "IT HAS SUBSIDED." PT DENIES PRN PAIN MEDICATION WHEN OFFERED. PT DENIES ANY OTHER NEEDS AT THIS TIME. CALL LIGHT IN REACH.
--- NOTE | 2023-02-12 11:19 | NUR ---
IN TO ASK PT IF PT HAS FOUND A RIDE HOME. PT STATES "NOT YET." INFORMED PT TO LET STAFF KNOW IF PT CANNOT FIND A RIDE THEN WE CAN GET HER A CAB AND PT STATES "I AM NOT GOING HOME IN A CAB." INFROMED PT TO LET STAFF KNOW WHEN PT KNOWS ABOUT A RIDE.
--- NOTE | 2023-02-12 11:25 | NUR ---
IN WITH DR. EVANS PER DR. EVANS REQUEST. ONCE DOOR IS OPEN AND PT SEE's DR. EVANS PT STATES "HE IS NOT SUPPOSED TO BE IN HERE." DR. EVANS LEAVS ROOM. INFORMED PT DR. EVANS WANTED TO GO OVER SOME MEDICATIONS WITH PT. PT STATES "NOPE, NOT FROM HIM. I DON'T CARE IF IT IS ANOTHER NURSE, THE CHARGE NURSE, THE PHARMACY OR DR. GOMEZ. I DO NOT WANT HIM THOUGH." PT STATES "MY FIRST IMPRESSION OF HIM HE GAVE ME THE HEEBI JEEBIES." PT CONTINUING TO WORK ON FINDING A RIDE HOME. INFORMED PT TO CALL WHEN PT KNOWS IF PT HAS A RIDE OR NOT SO WE CAN ASSIST IN GETTING PT A RIDE HOME IF NEEDED. PT DENIES ANY OTHER NEEDS AT THIS TIME. CALL LIGHT IN REACH.
[2023-02-12] MEDS ORDERED: JARDIANCE10 MG PO (11:28)
[2023-02-12] MEDS ORDERED: LISINOPRIL2.5 MG PO (11:30)
[2023-02-12 12:11] VITALS: BP 147/86
--- NOTE | 2023-02-12 12:11 | NUR ---
IN TO GO OVER DC INSTRUCTIONS. LEAH ESCOBAR IN TO ASSIST WITH VITALS AND I&Os. VERBAL AND WRITTEN INSTRUCTIONS PROVIDED. PT VERBALIZES UNDERSTANDING. QUESTIONS ANSWERED. IV REMOVED WNL. VITALS AND I&Os COMPLETE. MEDICATION ADMINISTERED, SEE AUG.
--- NOTE | 2023-02-12 13:43 | NUR ---
IN TO ROUND ON PT. PT ON PHONE. NO NEEDS IDENTIFIED AT THIS TIME. CALL LIGHT IN REACH.
[2023-02-12 13:50] VITALS: BP 148/76
--- NOTE | 2023-02-12 13:58 | NUR ---
PTs RIDE ARRIVES TO UNIT. LEAH ESCOBAR AND GREG LEA OBTAINING VITALS. BELONGINGS RETURNED. NO NEEDS FROM THIS RN. LEAH ESCOBAR AND GREG LEA WHEEL PT OUT IN WHEELCHAIR TO VEHICLE.
--- NOTE | 2023-02-12 14:11 | OR ---
[facility] [address], [place] [address] Signed DATE OF OPERATION: 02/10/2023 SURGEON: Bhargav Gomez MD PREOPERATIVE DIAGNOSIS: Right ischial soft tissue defect 6.4 cm. POSTOPERATIVE DIAGNOSIS: Right ischial soft tissue defect 6.4 cm. PROCEDURE: Delayed primary closure of ischial wound 6 cm in length. ANESTHESIA: Local with monitored anesthesia care, Bhargav Rhodes CRNA and 10 mL of 0.25% Marcaine with epinephrine. INDICATION: A 43-year-old morbidly obese diabetic woman presented to the emergency room on February 04, 2023, with a necrotic wound in the region of the ischium on the right side. She underwent debridement. She was noted to have some beginnings of granulation in the depths of the wound. In addition to complete resection of necrotic tissue, wound VAC was initiated anticipating need a split-thickness skin grafting or delayed secondary closure. Over the past several days, she has had increasing improvement. She did have wound VAC dressing changed on Thursday and good granulation for most, but not all the wound was noted. She is now to undergo delayed primary closure of the wound given its location, not far from the anal canal and mindful of her extreme inability to care for wounds of this type or even identify the area in question given her morbid obesity. She is admitted to undergo delayed primary closure of the wound on that basis. FINDINGS: Excellent granulation in the bed of the wound was noted. Closure was undertaken. The wound length was 6 cm. DESCRIPTION OF PROCEDURE: The patient was brought to the operating room, placed in the lateral decubitus position with right side down. The left buttock was taped anteriorly. The area was prepared with a Betadine based solution after removal of the wound VAC device. Examination of Electronically Signed By: BHARGAV GOMEZ MD 02/12/23 1411 PATIENT NAME: WILBERT KUO OPERATIVE REPORT DATE OF : 76 REPORT #: [id number] PHYSICIAN: BHARGAV GOMEZ MD PCP: PRATEEK CHAPMAN MD REPORT IS CONFIDENTIAL AND NOT TO BE RELEASED WITHOUT AUTHORIZATION [facility] [address], [place] [address] Signed the wound showed it to be granulating throughout. Although the skin graft will be an alternative method of wound coverage given its location, the patient's inability to care for wounds of essentially any type, secondary closure by reapproximation was deemed most advisable. This was accomplished with interrupted 3-0 nylon suture in a vertical mattress configuration. The area was cleansed after closure and Acticoat dressing applied as well as ultra thin DuoDerm near the posterior vaginal fourchette and perianal tissue. Sponge, needle, and instrument counts reported as correct x3. MD ADRY Garay/MODL /[id number] cc: Prateek Chapman MD Copies: PRATEEK CHAPMAN MD ~ Electronically Signed By: BHARGAV GOMEZ MD 02/12/23 1411 PATIENT NAME: WILBERT KUO SABINO OPERATIVE REPORT DATE OF : 76 REPORT #: [id number] PHYSICIAN: BHARGAV GOMEZ MD PCP: PRATEEK CHAPMAN MD REPORT IS CONFIDENTIAL AND NOT TO BE RELEASED WITHOUT AUTHORIZATION
== END 2023-02-12 13:58 | disposition home or self-care (01) | DRG 264 ==
LOC: ED 06:54 → MS 06:56
PROVIDERS: Family Medicine; Internal Medicine; Student in an Organized Health Care Education/Training Program; ADMIT Surgery; ATTEND Surgery
PROC: 0JB90ZZ Excision of Buttock Subcutaneous Tissue and Fascia, Open Approach (ICD-10-PCS; principal; 2023-02-04 12:00)
PROC: 0JQ90ZZ Repair Buttock Subcutaneous Tissue and Fascia, Open Approach (ICD-10-PCS; 2023-02-10)
DX: E11.52 Type 2 diabetes mellitus with diabetic peripheral angiopathy with gangrene (principal); L89.313 Pressure ulcer of right buttock, stage 3; D84.9 Immunodeficiency, unspecified; I96 Gangrene, not elsewhere classified; Z68.41 Body mass index [BMI] 40.0-44.9, adult; L03.317 Cellulitis of buttock; M79.89 Other specified soft tissue disorders; F17.210 Nicotine dependence, cigarettes, uncomplicated; F41.9 Anxiety disorder, unspecified; G89.29 Other chronic pain; I25.10 Atherosclerotic heart disease of native coronary artery without angina pectoris; E66.01 Morbid (severe) obesity due to excess calories; E11.40 Type 2 diabetes mellitus with diabetic neuropathy, unspecified; M54.9 Dorsalgia, unspecified; I10 Essential (primary) hypertension; B96.89 Other specified bacterial agents as the cause of diseases classified elsewhere; Z98.51 Tubal ligation status; Z98.891 History of uterine scar from previous surgery; Z98.890 Other specified postprocedural states; I25.2 Old myocardial infarction; Z79.899 Other long term (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; Z86.14 Personal history of Methicillin resistant Staphylococcus aureus infection; Z79.51 Long term (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 of inhaled steroids; Z79.4 Long term (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; Z91.040 Latex allergy status; Z91.018 Allergy to other foods; Z88.8 Allergy status to other drugs, medicaments and biological substances; Z95.5 Presence of coronary angioplasty implant and graft
CPT/HCPCS: 01120; 36415; 80048; 80053; 82150; 83036; 83986; 84155; 85025; 87070; 87075; 87076; 87205; 89051; 93005; 93010; 94760; 94762; 96365; 96366; 96372; 96374; 96375; 99284-25; A9270; G0378; J1100; J1644; J1815; J1885; J2185; J2250; J2405; J2704; J2765; J3010; J7121

== ENCOUNTER 2023-07-19 16:58 | Emergency (ER) | payer OTHER ==
[~2023-07-19] VITALS: Ht 167.6 cm; Wt 124.5 kg
[~2023-07-19 16:58] MED LIST changes: +CLOPIDOGREL75 MG PO; +CYMBALTA30 MG PO; +JARDIANCE10 MG PO; +LISINOPRIL2.5 MG PO; +PRENATAL VITAM1 EAC6 PO
[2023-07-19 17:27] LABS: BASOPHILS 0.8 % (0-2); EOSINOPHILS 1.7 % (0-6); HEMATOCRIT 40.8 % (35.0-50.0); HEMOGLOBIN 13.9 g/dL (12.0-18.0); LYMPHOCYTES 32.9 % (24-44); MCH 29.3 (27-36); MCHC 33.9 g/dl (30-36); MCV 86.3 fl (81-99); NEUTROPHILS 60.6 % (39-80); PLATELET COUNT 248 K/uL (140-440); RBC 4.73 M/ul (4.3-5.7); RDW 13.2 (10.5-15.0)
[2023-07-19 17:48] LABS: ALBUMIN 2.1 g/dL (3.4-5.0); ALBUMIN/GLOBULIN RATIO 0.53 (1.1-2.4); BILIRUBIN, TOTAL 1.2 ng/dL (0.2-1.0); BUN/CREATININE RATIO 13.97 (6.0-28.6); CALCIUM 8.1 mg/dL (8.5-10.1); CREATININE, SERUM 0.93 mg/dL (0.55-1.02); MAGNESIUM 1.5 mg/dL (1.8-2.4); PROTEIN, TOTAL 6.1 g/dL (6.4-8.2)
--- NOTE | 2023-07-19 19:07 | EKG ---
[facility] [address] [facility] [place] [address] Signed Normal sinus rhythm Non-diagnostic lateral Q waves Normal ECG Confirmed by Lyndon Mcclure M.D. ([id number]) on 07/19/2023 7:07:11 PM Electronically Signed By: LYNDON MCCLURE 07/19/231906 PATIENT NAME: WILBERT KUO Electrocardiogram DATE OF : 76 PHYSICIAN: LYNDON MCCLURE REPORT #: [id number] REPORT IS CONFIDENTIAL AND NOT TO BE RELEASED WITHOUT AUTHORIZATION
[2023-07-19 19:35] VITALS: BP 157/88
== END 2023-07-19 19:35 | disposition home or self-care (01) ==
LOC: ED 16:58
PROVIDERS: Emergency Medicine
DX: R07.89 Other chest pain (principal); E83.42 Hypomagnesemia; E66.01 Morbid (severe) obesity due to excess calories; I25.10 Atherosclerotic heart disease of native coronary artery without angina pectoris; E11.9 Type 2 diabetes mellitus without complications; I10 Essential (primary) hypertension; E78.5 Hyperlipidemia, unspecified; G89.29 Other chronic pain; F41.9 Anxiety disorder, unspecified; I25.2 Old myocardial infarction; F17.200 Nicotine dependence, unspecified, uncomplicated; Z91.018 Allergy to other foods; Z91.040 Latex allergy status; Z88.8 Allergy status to other drugs, medicaments and biological substances; Z79.899 Other long term (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; Z79.02 Long term (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 of antithrombotics/antiplatelets; Z68.41 Body mass index [BMI] 40.0-44.9, adult
CPT/HCPCS: 36415; 71045; 80053; 83735; 84484; 85025; 93005; 93010; J1885

== ENCOUNTER 2024-01-08 23:05 | Inpatient (IN) | payer OTHER ==
[~2024-01-08] VITALS: Ht 167.6 cm; Wt 124.6 kg
[~2024-01-08 23:05] MED LIST changes: -CLOPIDOGREL75 MG PO
[2024-01-08] MEDS ORDERED: CLOPIDOGREL75 MG PO (23:17)
[2024-01-08 23:40] LABS: BASOPHILS 0.5 % (0-2); EOSINOPHILS 1.5 % (0-6); HEMATOCRIT 43.9 % (35.0-50.0); HEMOGLOBIN 14.8 g/dL (12.0-18.0); LYMPHOCYTES 23.9 % (24-44); MCH 29.1 (27-36); MCHC 33.7 g/dl (30-36); MCV 86.5 fl (81-99); MONOCYTES 4.1 % (0-12); PLATELET COUNT 257 K/uL (140-440); RBC 5.07 M/ul (4.3-5.7); RDW 13.5 (10.5-15.0)
[2024-01-09] VITALS (7 sets, daily range): BP systolic 123–151; BP diastolic 67–101
[2024-01-09 00:15] LABS: ALBUMIN 1.8 g/dL (3.4-5.0); ALBUMIN/GLOBULIN RATIO 0.41 (1.1-2.4); ANION GAP 9.5 (7-21); BILIRUBIN, TOTAL 1.1 ng/dL (0.2-1.0); BUN/CREATININE RATIO 16.4 (6.0-28.6); CALCIUM 8.5 mg/dL (8.5-10.1); CREATININE, SERUM 1.28 mg/dL (0.55-1.02); MAGNESIUM 1.5 mg/dL (1.8-2.4); POTASSIUM 4.5 mmol/L (3.5-5.1); PROTEIN, TOTAL 6.2 g/dL (6.4-8.2)
[2024-01-09] MEDS ORDERED: ASPIRIN 325 MG TABEC PO ONE (02:45)
[2024-01-09] MEDS ORDERED: INSULIN LISPRO 100 UNIT/ML ML SUB-Q ONE ×2 (02:45→12:45)
[2024-01-09] MEDS ORDERED: DEXTROSE 5% 1,000 ML IV PRN (03:00)
[2024-01-09] MEDS ORDERED: GLUCAGON,HUMAN RECOMBINANT 1 MG/ML VIAL SUB-Q PRN (03:00)
[2024-01-09] MEDS ORDERED: METOPROLOL SUCCINATE 25 MG TABCR PO ONE (03:00)
[2024-01-09] MEDS ORDERED: ACETAMINOPHEN 325 MG TAB PO PRN (03:00)
[2024-01-09] MEDS ORDERED: DEXTROSE 50% 50 ML SYR IV PRN ×2 (03:00)
[2024-01-09] MEDS ORDERED: IBLOOD GLUCOSE TEST STRIP 1 EA TEST XX PRN (03:00)
[2024-01-09] MEDS ORDERED: ondansetron HCL 4 MG/2 ML VIAL IV PRN ×2 (03:00→12:00)
[2024-01-09 03:05] LABS: CHOLESTEROL 208 mg/dL (<200); CHOLESTEROL/HDL RATIO 5.6; HDL CHOLESTEROL 37 (40-60); TRIGLYCERIDES 461 ng/dL (<150)
--- NOTE | 2024-01-09 06:05 | NUR ---
PATIENT ARRIVED VIA WHEELCHAIR, ALERT AND ORIENTED. SHE IS ABLE TO TRANSFER SELF FROM WHEELCHAIR TO BED WITH STANDBY LINE/CORD ASSIST. PATIENT REPORTS NO PAIN OR NAUSEA, PASSED BEDSIDE SWALLOW EVALUATION.
[2024-01-09] MEDS ORDERED: IBLOOD GLUCOSE TEST STRIP 1 EA TEST XX SCH (08:00)
[2024-01-09] MEDS ORDERED: INSULIN LISPRO 100 UNIT/ML ML SUB-Q SCH (08:00)
[2024-01-09] MEDS ORDERED: MELATONIN 3 MG TAB PO PRN (08:15)
[2024-01-09] MEDS ORDERED: MAGNESIUM SULFATE 2 GM/50 ML BAG IV ONE (08:30)
--- NOTE | 2024-01-09 08:58 | NUR ---
ECHO COMPLETE. PT SITTING UP IN BED TALKING WITH DR. CHATTERJEE AT THIS TIME. PT DENIES DIZZYNESS, BUT DOES STILL HAVE A "HORRIBLE HEADACHE." PLAN OF CARE BEING DISCUSSED. PT IS A MED/SURG PATIENT.
[2024-01-09] MEDS ORDERED: METOPROLOL TARTRATE 25 MG TAB PO SCH (09:00)
[2024-01-09] MEDS ORDERED: ATORVASTATIN 40 MG TAB PO SCH (09:00)
[2024-01-09] MEDS ORDERED: ASPIRIN 325 MG TAB PO SCH (09:00)
[2024-01-09] MEDS ORDERED: FENOFIBRATE MICRONIZED PO SCH (09:00)
[2024-01-09] MEDS ORDERED: CLOPIDOGREL BISULFATE 75 MG TAB PO SCH (09:00)
[2024-01-09] MEDS ORDERED: INSULIN GLARGINE-YFGN 100 UNIT/ML ML SUB-Q SCH (09:00)
[2024-01-09] MEDS ORDERED: ASPIRIN 81 MG CHEW PO SCH (09:02)
[2024-01-09 10:29] LABS: BASOPHILS 0.6 % (0-2); EOSINOPHILS 1.1 % (0-6); HEMOGLOBIN 14.5 g/dL (12.0-18.0); LYMPHOCYTES 34.5 % (24-44); MCH 28.7 (27-36); MCHC 33.7 g/dl (30-36); MCV 85.2 fl (81-99); MONOCYTES 4.6 % (0-12); NEUTROPHILS 59.2 % (39-80); PLATELET COUNT 353 K/uL (140-440); RBC 5.05 M/ul (4.3-5.7); RDW 13.4 (10.5-15.0)
[2024-01-09 10:44] LABS: ANION GAP 10.4 (7-21); BUN/CREATININE RATIO 22.5 (6.0-28.6); CALCIUM 8.5 mg/dL (8.5-10.1); CREATININE, SERUM 1.2 mg/dL (0.55-1.02); POTASSIUM 3.4 mmol/L (3.5-5.1)
[2024-01-09] MEDS ORDERED: POTASSIUM CHLORIDE 10 MEQ TABCR PO ONE (11:15)
[2024-01-09] MEDS ORDERED: ACETAMINOPHEN 500 MG TAB PO PRN (12:00)
--- NOTE | 2024-01-09 12:30 | NUR ---
1225 REPORT RECIEVED FROM GREG MILLER. PT SITTING UP IN BED WITH LUNCH TRAY. PT RESPONDS WHEN ADDRESSED. 1230 PT TO ROOM IN BED. VITALS COMPLETE. PT A&O TO ALL. PT DENIES ANY OTHER NEEDS AT THIS TIME. CALL LIGHT IN REACH.
--- NOTE | 2024-01-09 12:30 | NUR ---
REPORT GIVEN TO GREG JACKSON AND PATIENT TRANSFERED TO ROOM 115 ON MED/SURG, TELE #1. NIH 1 TODAY. PATIENT CONTINUES TO DO WELL, SITTING UP AT EDGE OF BED TO EAT HER LUNCH. CBG >300 AND GIVEN 9 UNITS SS INSULIN.
--- NOTE | 2024-01-09 12:37 | NUR ---
CBG [address] CHATTERJEE NOTIFIED. ORDERS REC'D TO INCREASE TO HIGH DOSE SCALE OF SS INSULIN AND GIVE ADDITIONAL 10 UNITS SUBQ NOW. [facility].
--- NOTE | 2024-01-09 12:41 | NUR ---
med rec complete.
--- NOTE | 2024-01-09 13:20 | NUR ---
IN TO ADMINISTER MEDICATTION, SEE MAR. PT SITTING UP ON EDGE OF BED. LEO, PHARMACY IN ROOM. MEDICATION ADMINISTERED, SEE MAR. PT REQUESTING ICE WATER. ICE WATER PROVIDED. PT DENIES ANY OTHER NEEDS FROM THIS RN. CALL LIGHT IN REACH.
--- NOTE | 2024-01-09 13:27 | NUR ---
MED REC COMPLETE
--- NOTE | 2024-01-09 17:26 | NUR ---
IN TO ADMINISTER MEDICATION, SEE MAR. PT IN RESTROOM. WHEN THIS RN ENTERS ROOM IT IS NOTED THAT THERE IS STOOL ON THE FLOOR IN THE BATHROOM. PT SITTING ON TOILET. PT STATES "I HAD AN ACCIDENT. I AM SO SORRY. I DID NOT QUITE MAKE IT TO THE TOILET IN TIME. I CAN CLEAN IT UP IF YOU HAND ME THE SHOWER HEAD." PT HANDED SHOWER HEAD TO CLEAN OFF PTs LEGS. MEDICATION ADMINISTERED, SEE MAR. LEAH GOMEZ ASKED TO ASSIST PT WITH SHOWER AND CLEANING UP. LEAH GOMEZ IN ROOM. PT DENIES ANY OTHER NEEDS FROM THIS RN. CALL LIGHT IN REACH.
--- NOTE | 2024-01-09 18:00 | NUR ---
IN TO ROUND ON PT. PTs DINNER TRAY ALSO BROUGHT TO PTs ROOM. PT SITTING UP ON EDGE OF BED. LEAH GOMEZ IN ROOM ASSISTING PT WITH NEW GOWN. ASSESSMENT COMPLETE. PT DENIES PAIN AT THIS TIME. PT A&O TO ALL. PT DENIES ANY OTHER NEEDS FROM THIS RN. CALL LIGHT IN REACH. LEAH GOMEZ STILL IN ROOM.
--- NOTE | 2024-01-09 18:45 | NUR ---
FLOOR SANDING MACHINE OPERATOR ASSISTED PT WITH A SHOWER. PT HAD A BM OUT OF HER BED ON THE FLOOR AND WANTED TO SHOWER HERSELF OFF. PT USED A SHOWER CHAIR AND WAS A SBA WHILE THE FLOOR SANDING MACHINE OPERATOR CLEANED THE ROOM. PT COULD SHOWER IND. PT TOLERATED ACTIVITY WELL. CNE REPLACED PT GOWN AND TELE STICKERS. PT IS SITTING UP AND EATING DINNER NO FURTHER COMPLAINTS AND CALL LIGHT IS WITHIN REACH
--- NOTE | 2024-01-09 19:30 | NUR ---
PT REPORT RECEIEVED FROM RICHARD GARZA. PT IN BR AT THIS TIME.
--- NOTE | 2024-01-09 20:18 | NUR ---
Provided Pt with fresh ice water. No other needs expressed by Pt. Call light left in reach.
--- NOTE | 2024-01-09 20:30 | NUR ---
VS, I&O AND ASSESSMENT COMPLETED. SCHEDULED MEDS PROVIDED. PT STATES THAT HER LEFT ARM AND LEG "STILL FEEL FUNNY." PT IS ABLE TO MOVE EXTREMITIES WELL, PULSES INTACT, WALKING AND IS USING THE LEFT ARM WITHOUT DIFFICULTY. GCS 15, A & O X4. ICE WATER PROVIDED. PT STATES NO OTHER NEEDS AT THIS TIME. CALL LIGHT IN REACH.
[2024-01-09] MEDS ORDERED: GABAPENTIN 300 MG CAP PO SCH (21:00)
--- NOTE | 2024-01-09 22:00 | NUR ---
PT RESTING IN BED, PLAYING ON PHONE. NO NEEDS AT THSI TIME. CALL LIGHT IN REACH.
--- NOTE | 2024-01-09 23:00 | NUR ---
PT RESTING IN BED, EYES CLOSED. RR EVEN, UNLABORED. CALL LIGHT IN REACH.
[2024-01-10] VITALS (8 sets, daily range): BP systolic 123–153; BP diastolic 67–83
--- NOTE | 2024-01-10 00:23 | NUR ---
PT RESTING IN BED, EYES CLOSED. RR EVEN, UNLABORED. CALL LIGHT IN REACH.
--- NOTE | 2024-01-10 03:12 | NUR ---
RESTING, ON ROOM AIR, NO SS/X DISTRESS, TELE#[address], HR 62-76 TURNS AND REPOSITIONS SELF IN BED, BSC CLOSE BY
[2024-01-10 05:12] LABS: HEMOGLOBIN 13.4 g/dL (12.0-18.0)
[2024-01-10 05:14] LABS: BASOPHILS 1.2 % (0-2); EOSINOPHILS 2.3 % (0-6); HEMATOCRIT 39.6 % (35.0-50.0); LYMPHOCYTES 37.1 % (24-44); MCHC 33.8 g/dl (30-36); MCV 85.8 fl (81-99); MONOCYTES 6.8 % (0-12); NEUTROPHILS 52.6 % (39-80); PLATELET COUNT 274 K/uL (140-440); RBC 4.62 M/ul (4.3-5.7); RDW 13.2 (10.5-15.0)
[2024-01-10 05:28] LABS: ALBUMIN 1.7 g/dL (3.4-5.0); ALBUMIN/GLOBULIN RATIO 0.43 (1.1-2.4); ANION GAP 9.4 (7-21); BILIRUBIN, TOTAL 0.6 ng/dL (0.2-1.0); BUN/CREATININE RATIO 23.89 (6.0-28.6); CALCIUM 8.4 mg/dL (8.5-10.1); CREATININE, SERUM 1.13 mg/dL (0.55-1.02); MAGNESIUM 1.9 mg/dL (1.8-2.4); POTASSIUM 4.4 mmol/L (3.5-5.1); PROTEIN, TOTAL 5.7 g/dL (6.4-8.2)
--- NOTE | 2024-01-10 05:37 | NUR ---
PT AWAKE, SITTING EDGE OF BED WATCHING TV, FRESH FLUIDS AND COFFEE GIVEN ONREQUESTS. PLEASANT AND COOPERATIVE. TELE#[address], DENIES CP OR SOB. MOVES ALL EXTREMITIES STAED. "L SIDE IMPROVED, STILL DOES NOT FEEL RIGHT THOUGH". STRONG ANNUAL GIVING MANAGER. SL PATENT, ON ROOM AIR. MOVES AND REPOSITIONS SELF IN BED, BSC AT ARMS REACH. TOLERATING SIPS OF FLUIDS WELL, NO C/O PAIN
--- NOTE | 2024-01-10 07:41 | NUR ---
PT SITTING UP IN BED ON TELEPHONE AT TIME OF SHIFT REPORT. AGREES SHE IS COMFORTABLE DENIES NEEDS AT THIS TIME. FRESH H20 TO BEDSIDE, CALL LIGHT IN REACH. BLINDS LEFT CLOSED PER REQUEST.
--- NOTE | 2024-01-10 08:49 | NUR ---
PT SITTING UP IN BED EATING BREAKFAST. STATES SHE IS GOING TO TELL THE DOCTOR HER LEFT HAND IS WORKING BUT SHAKEY AND THAT HER LEFT LEG IS NOT NORMAL STATES SHE HAS TO THINK TO MAKE IT MOVE INSTEAD OF AUTOMATIC. SHE DENIES ANY OTHER NEURO SYMPTOMS. PT USING BOTH HANDS AT THIS TIME SELF FEEDING.
[2024-01-10] MEDS ORDERED: INSULIN GLARGINE-YFGN 100 UNIT/ML ML SUB-Q SCH (09:00)
--- NOTE | 2024-01-10 09:17 | NUR ---
PT FINISHES ENTIRE BREAKFAST C/O CONTINUED HUNGER. STATES SHE WILL TALK TO THE DOCTOR WHEN SHE COMES IN.
--- NOTE | 2024-01-10 10:37 | NUR ---
MRI QUESTIONAIRE COMPLETED. PT CONTINUES UP IN BED WITH HER PHONE. P/T COMES IN ANTICIPATING THERAPY PT SUGGESTS IT IS NOT A GOOD IDEA WITH HOW HER LEG IS FEELING. PT ENCOURAGED TO PARTICIPATE THERAPY TO RETURN SOON
--- NOTE | 2024-01-10 12:20 | NUR ---
PT TO MRI VIA W/C
--- NOTE | 2024-01-10 13:09 | NUR ---
PT RETURNS FROM MRI LUNCH IS SERVED. DECLINES GOING TO THE CHAIR INSTEAD RETURNS TO SIT IN THE BED. AGREES SHE HAS NEEDED ITEMS. NO C/O OF DISCOMFORTS OR NEEDS
--- NOTE | 2024-01-10 13:53 | NUR ---
In with pt in response to call light. Pt wanted to let "Claudia" know that she is finished with her lunch, and that her telemetry unit needs to be put back on her. Pt ate 100% of her lunch. Leads placed back on patient. Pt commenting on how delicious the salad was for lunch. Pt requested her rings and necklace be returned to her from the lock box in her room. This was done. Call light in reach.
--- NOTE | 2024-01-10 14:36 | NUR ---
PT SITTING UP IN BED ASKS IF IT IS OKAY IF FAMILY BRING HER A SMOOTHIE. PT REMINDED THAT SHE IS ON A 60 GM CARB DIET AND DOCTOR IS TRYING TO REGULATE HER BLOOD SUGAR. SHE WAS GIVEN ADDITIONAL PROTEIN PARAMETERS TO SATISFY HER APPETITE BUT A SMOOTHIE IS ALL CARBS AND WILL INCREASE BLOOD SUGAR. PT SOUNDS AGREEABLE. FAMILY ARRIVE AT THIS TIME WITH SMOOTHIE PT IS DRINKING IT.
--- NOTE | 2024-01-10 15:00 | NUR ---
PT ASSURES THOS STEM MOUNTER SHE DID NOT DRINK A SMOOTHIE BUT INSTEADY HAD SUGAR FREE PEACH TEA. PT PRAISED TO BETTER CHOICE.
--- NOTE | 2024-01-10 16:28 | NUR ---
PT SITTING UP IN BED TALKING ON THE PHONE
--- NOTE | 2024-01-10 17:55 | NUR ---
EVENING MEAL SERVED PT SITTING UP IN BED DECLINES GOING TO THE CHAIR. AGREES SHE HAS EVERYTHING SHE NEEDS DENIES DISCOMFORTS
--- NOTE | 2024-01-10 21:36 | NUR ---
Pt awake, watchingt v and playing with cell phone, cooperative with vitals nd assessments. On room air, lungs clear, tele #[address] SR, denies CP or SOB. SL patent. edema to LE, encouraged to elevate, semireceptive. no c/o pain. cbg 293 received 9 units SS Insulin and scheduled Lantus. multiple scabbed over castro over back, arms and legs healing
[2024-01-11] VITALS (10 sets, daily range): BP systolic 124–159; BP diastolic 67–87
--- NOTE | 2024-01-11 00:34 | NUR ---
RESTING, EYES CLOSED, NO S/SX DISTRESS OR GLICEMIS DISTRESS. TURNS AND REPOSITIONS SELF IN BED.
--- NOTE | 2024-01-11 02:33 | NUR ---
RESTING, EYES CLOSED, NO S/SX DISTRESS, HOB ELEVATED, ON ROOM AIR, TELE#8 IN [address], SR
[2024-01-11 05:37] LABS: BASOPHILS 0.7 % (0-2); EOSINOPHILS 2.5 % (0-6); HEMATOCRIT 38.6 % (35.0-50.0); HEMOGLOBIN 12.9 g/dL (12.0-18.0); LYMPHOCYTES 33.1 % (24-44); MCH 28.7 (27-36); MCHC 33.6 g/dl (30-36); MCV 85.4 fl (81-99); MONOCYTES 4.9 % (0-12); NEUTROPHILS 58.8 % (39-80); PLATELET COUNT 287 K/uL (140-440); RBC 4.52 M/ul (4.3-5.7); RDW 13.3 (10.5-15.0)
--- NOTE | 2024-01-11 05:47 | NUR ---
insulator technician in room drawing blood, Pt cooperative with draws and vitals, turns and repositions self in bed, Up to BSC, voiding large amount of dark yellowcloudy urine. Has slept off and on this shift. Tele#[address] shweta FERRER co CP, stated improved feeling L amr and leg
[2024-01-11 05:50] LABS: ANION GAP 8.2 (7-21); CALCIUM 8.3 mg/dL (8.5-10.1); CREATININE, SERUM 1.12 mg/dL (0.55-1.02); POTASSIUM 4.2 mmol/L (3.5-5.1)
--- NOTE | 2024-01-11 07:14 | NUR ---
BEDSIDE REPORT RECEIVED FROM GREG SOSA. PT RESTS IN BED WITH EYES CLOSED, RESP EVEN AND UNLABORED.
--- NOTE | 2024-01-11 10:05 | NUR ---
PT AGREES TO AMBULATION TODAY. PT AMBULATES TO TOILET WITH SBA AND VOIDS. PT AMBULATES IN HALLWAY AROUND THE NURSES STATION WITH SBA. PT WALKS WITH SMALL LIMP, INTERMITTENTLY USES SIDE RAILS IN HALLWAY. PT OTHERWISE TOLERATED AMBULATION WELL WITH STEADY GAIT. NO SOB. PT BACK TO ROOM.
--- NOTE | 2024-01-11 10:05 | NUR ---
PATIENT ALERT AND ORIENTED, SITTING ON EDGE OF BED. STATES SHE LIVES IN APARTMENT THAT REQUIRES HER TAKE 3 FLIGHTS OF STAIRS. SHE IS NERVOUS BECAUSE SHE WAS TIRED AFTER WALKING IN HALLS. STATES HE SOMETIMES STRUGGLES WITH STAIRS AT BASELINE. NO DME AT HOME. DOES NOT DRIVE. STATES SHE EITHER USES [employer] OR MOTHER FOR TRANSPORTATION. NO FINANCIAL ISSUES AT THIS TIME. STATES SHE IS DOING OK. GETTING , HOWEVER HE CONTINUES TO ASSIST PATIENT WHEN NEEDED. VERIFIED DEMOGRAPHICS. STATES HER ADDRESS IS [address] [place] [address] [address]
--- NOTE | 2024-01-11 11:29 | EKG ---
[facility] [address] [facility] [place] [address] Signed Normal sinus rhythm Low voltage QRS Borderline ECG When compared with ECG of 19-JUL-2023 17:04, T wave inversion no longer evident in Inferior leads Confirmed by NIKOLE EVANS MD ([id number]) on 01/11/2024 11:29:06 AM Electronically Signed By: NIKOLE EVANS 01/11/24 1129 PATIENT NAME: WILBERT KUO SABINO Electrocardiogram DATE OF : 76 PHYSICIAN: NIKOLE EVANS REPORT #: [id number] REPORT IS CONFIDENTIAL AND NOT TO BE RELEASED WITHOUT AUTHORIZATION
--- NOTE | 2024-01-11 11:48 | NUR ---
PT NOTES REVIEWED. DISCUSSED POSSIBILITY OF SNF WITH PATIENT. PATIENT CHOICE LETTER AND LIST PROVIDED. PATIENT STATES SHE WILL NOT GO TO [facility] UNLESS HER MOTHER ASKS HER TO. STATES SHE WOULD LIKE TO WAIT FOR HER MOTHER TO DISCUSS PLACEMENT. INFORMED HER THIS NURSE WILL RETURN LATER TODAY TO DISCUSS FURTHER WHAT HER PLAN IS.
--- NOTE | 2024-01-11 13:09 | NUR ---
Spoke with patient. [facility]ers [facility]. Clinicals fax[facility] to [facility].
--- NOTE | 2024-01-11 14:10 | NUR ---
CORN BREEDER GOT ALL OF THE ITEMS REQUIRED FOR PT TO TAKE A SHOWER. HER ROOM IS STARTING TO SMELL BAD AND THE SMELL IS GOING OUT INTO THE HALLWAY. CORN BREEDER TOLD PT SHE WOULD CLEAN THE BED LINENS AND WRAP TH PT IV SO SHE COULD TAKE A HSOWER. PT REFUSED AND SAID SHE "DIDN'T WANT TO SHOWER, (SHE) WILL SHOWER AFTER DINNER".
--- NOTE | 2024-01-11 16:03 | NUR ---
PT IN SHOWER, FRANC, PRINTING EQUIPMENT MECHANIC APPRENTICE ASSISTING PT.
--- NOTE | 2024-01-11 19:10 | NUR ---
BEDSIDE REPORT RECEIVED FROM PROMISE GARZA, PT ALERT AND ORIENTENED, SPEECH CLEAR, DENIES NEEDS AT THIS TIME.
--- NOTE | 2024-01-11 21:30 | NUR ---
PT AWAKE AND ALERT, VS STABLE, AFEBRILE, ASSESSMENT COMPLETED, ACCUCHECK 298, 9U SS INSULIN GIVEN AND GLARGINE INSULIN GIVEN PER ORDER, PT DENIES NEEDS AT THIS TIME. BED LOW POSITION, SIDE RAILS UP X 2.
--- NOTE | 2024-01-11 22:55 | NUR ---
RANGE EXAMINER GAVE PT 500ML OF WATER. PT HAS CALL LIGHT WITH HER
--- NOTE | 2024-01-11 23:20 | NUR ---
PT APPEARS TO SLEEP, LAYING ON RIGHT SIDE, RESP EVEN AND REG.
[2024-01-12] VITALS (11 sets, daily range): BP systolic 115–146; BP diastolic 63–82
--- NOTE | 2024-01-12 01:20 | NUR ---
PT AWAKE, ALERT, TALKING ON HER CELL PHONE, PT WITHOUT REQUESTS AT THIS TIME.
--- NOTE | 2024-01-12 03:00 | NUR ---
PT RESTING WITHOUT REQUESTS AT THIS TIME.
--- NOTE | 2024-01-12 04:36 | NUR ---
PT AWAKE, VS DONE AND STABLE, NEURO STATUS UNCHANGED, PT WITHOUT REQUESTS AT TIMES.
[2024-01-12 05:40] LABS: BASOPHILS 0.8 % (0-2); EOSINOPHILS 2.7 % (0-6); HEMATOCRIT 40.8 % (35.0-50.0); HEMOGLOBIN 13.8 g/dL (12.0-18.0); LYMPHOCYTES 34.2 % (24-44); MCHC 33.8 g/dl (30-36); MCV 85.9 fl (81-99); MONOCYTES 4.5 % (0-12); NEUTROPHILS 57.8 % (39-80); PLATELET COUNT 289 K/uL (140-440); RBC 4.75 M/ul (4.3-5.7); RDW 13.5 (10.5-15.0)
[2024-01-12 05:54] LABS: ANION GAP 10.4 (7-21); BUN/CREATININE RATIO 24.1 (6.0-28.6); CALCIUM 8.8 mg/dL (8.5-10.1); CREATININE, SERUM 1.12 mg/dL (0.55-1.02); POTASSIUM 4.4 mmol/L (3.5-5.1)
--- NOTE | 2024-01-12 06:30 | NUR ---
PT APPEARS TO SLEEP, RESP EVEN AND REG.
--- NOTE | 2024-01-12 07:25 | NUR ---
BEDSIDE REPORT RECEIVED FROM BRAN Landry RN. PT AWAKE AND ALERT, ON CELL PHONE. NO REQUESTS AT THIS TIME.
--- NOTE | 2024-01-12 08:19 | NUR ---
Spoke with Alma at [facility]. Unable to accept patient due to lack of skillable need for their facility.
--- NOTE | 2024-01-12 10:06 | NUR ---
VISITED DURING SPIRITUAL CARE ROUNDS. PT RECEIVING NURSING CARE. DID NOT INTERRUPT. PROVIDED PRAYER.
--- NOTE | 2024-01-12 11:12 | NUR ---
UR CLINICAL REVIEW FOR 01/09/24: [facility]- MEETS INPATIENT CRITERIA EOCCO INPT 01/09/24 @ 1021 ORDER MATCHES REG CLININCALS SENT TO FOR AUT REVIEW DISCHARGE TO HOME WHEN STABLE 01/12/24
--- NOTE | 2024-01-12 11:14 | NUR ---
UR CONCURRENT REVIEW: [facility]- MEETS CRITER FOR GL DAY 2 EOCCO INPT 01/09/24 @ 1021 AUTH PENDING CLINICAL REVIEW PER AM MEETING PLAN TO D TODAY 01/15/24
--- NOTE | 2024-01-12 11:47 | NUR ---
PATIENT INFORMED OF HERLONG INABILITY TO ACCEPT HER DUE TO HER ACTIVITY LEVEL. STATES SHE WOULD LIKE TO KNOW WHAT [facility] SAYS REGARDING PLACEMENT. CHART FAXED TO [facility].
--- NOTE | 2024-01-12 14:24 | NUR ---
SPOKE WITH MAGDA AT [facility]. STATES THEY WILL REVIEW PATIENT CHART AND CALL BACK.
--- NOTE | 2024-01-12 15:30 | NUR ---
PATIENT WAS WORKING WITH PT EARLIER AND NOW IS ON THE PHONE. RD UNABLE TO TALK TO PATIENT TODAY. PATIENT HAS DIABETES AND IS ON A 60 GM CONS CARB DIET. SHE IS PLACING MEAL ORDERS. APPETITE IS GOOD SHE IS EATING 100% OF MEALS. WILL CHECK WITH PATIENT TOMORROW TO SEE IF SHE HAS ANY NUTRITION NEEDS FROM ME.
--- NOTE | 2024-01-12 19:50 | NUR ---
REPORT RECEIVED FROM DAY RN. PATIENT SITTING ON SIDE OF BED. URINE EMPTIED FROM HAT IN BATHROOM. NOTED LG BM. PATIENT DENIES ANY NEEDS AT THIS TIME. CALL LIGHT WITHIN REACH.
--- NOTE | 2024-01-12 21:23 | NUR ---
PATIENT RESTING IN BED. DENIES ANY PAIN OR DISCOMFORT AT THIS TIME. MILD EDEMA NOTED IN BILATERAL FEET +1. PATIENT LUNGS CTA, BOWEL TONES ACTIVE X [address] AND FUNCTIONING WNL AT THIS TIME. IV SITE PATENT. HS MEDICATIONS GIVEN. FRESH ICE WATER GIVEN. PATIENT FOOD AND NUTRITION SERVICES ASSISTANT EQUAL, POSITIVE PERRLA. NO FURTHER NEEDS AT THIS TIME. CALL LIGHT WITHIN REACH.
--- NOTE | 2024-01-12 23:50 | NUR ---
PATIENT RESTING IN BED WITH EYES CLOSED. RESPIRATIONS EVEN AND UNLABORED. CALL LIGHT WITHIN REACH.
[2024-01-13] VITALS (8 sets, daily range): BP systolic 133–147; BP diastolic 66–95
--- NOTE | 2024-01-13 02:31 | NUR ---
PATIENT RESTING IN BED. VSS. NEURO ASSESSMENT WITH NO SIGNIFIANT CHANGES. C/O THINGLING LIKE PAIN IN LEFT LEG. PATIENT REPORTS PAIN IS TOLLERABLE AT THIS TIME. NO FURTHER NEEDS. CALL LIGHT WITHIN REACH.
--- NOTE | 2024-01-13 04:30 | NUR ---
PATIENT RESTING IN BED WITH EYES CLOSED. RESPIRATIONS EVEN AND UNLABORED. CALL LIGHT WITHIN REACH.
[2024-01-13 05:28] LABS: BASOPHILS 0.6 % (0-2); EOSINOPHILS 2.7 % (0-6); HEMATOCRIT 39.5 % (35.0-50.0); HEMOGLOBIN 13.1 g/dL (12.0-18.0); LYMPHOCYTES 32.7 % (24-44); MCH 28.6 (27-36); MCHC 33.2 g/dl (30-36); MCV 86.2 fl (81-99); MONOCYTES 4.4 % (0-12); NEUTROPHILS 59.6 % (39-80); PLATELET COUNT 270 K/uL (140-440); RBC 4.58 M/ul (4.3-5.7); RDW 13.5 (10.5-15.0)
[2024-01-13 05:43] LABS: ANION GAP 10.5 (7-21); BUN/CREATININE RATIO 25.21 (6.0-28.6); CALCIUM 8.5 mg/dL (8.5-10.1); CREATININE, SERUM 1.15 mg/dL (0.55-1.02); POTASSIUM 4.5 mmol/L (3.5-5.1)
--- NOTE | 2024-01-13 06:21 | NUR ---
PATIENT RESTING IN BED WITH EYES CLOSED. RESPIRATIONS EVEN AND UNLABORED. MALICK LIGHT WITHIN REACH.
--- NOTE | 2024-01-13 07:15 | NUR ---
REPORT RECIEVED FROM GREG TORIBIO. PT SITTING UP IN BED ON PHONE. PT RESPONDS WHEN ADDRESSED. PT REQUESTING COFFEE, COFFEE PROVIDED BY GREG CORONADO. PT DENIES ANY OTHER NEEDS AT THIS TIME. CALL LIGHT IN REACH.
--- NOTE | 2024-01-13 08:15 | NUR ---
CLOUD SOLUTIONS ARCHITECT ENTERED ROOM TO RECORD PT BG LEVEL. LEAH ASKED PT IF SHE WAS READY TO GET OUT OF THE HOSPITAL AND GET BACK HOME WITH HER KIDDOS. PT SAID THAT IF THE DOCTOR TRIES TO DISCHARGE HER TODAY THEN SHE WILL REFUSE BECAUSE SHE "HAS FAMILY COMING TO VISIT TODAY". PT ALSO BEGAN COMPLAINING ABOUT CASE MANAGEMENT AND HOW SHE WANTED PLACED AT A SPECIFIC REHAB CENTER BUT "HAS BEEN CALLING AND THE FACILITIES SAID THEY HAVE NOT HEARD ANYTHING FROM CASE MANAGEMENT OR THE HOSPITAL". LEAH TOLD PT SHE UNDERSTANDS THAT CAN BE FRUSTRATING SO SHE WOULD TRY TO FOLLOW UP WITH CASE MANAGEMENT. PT ALSO STATED SHE FEELS LIKE SHE "IS BEING PUSHED OUT OF THE HOSPITAL AND THAT NO ONE IS ADVOCATING FOR HER SINCE SHE DOESN'T FEEL SAFE ENOUGH TO GO HOME AND WALK UP STAIRS". LEAH TOLD PT SHE UNDERSTOOD AND SAID SHE WOULD TALK WITH CASE MANAGEMENT AND SEE WHERE WE ARE AT IN THE PLACEMENT PROCESS.
--- NOTE | 2024-01-13 09:01 | NUR ---
IN TO ADMINISTER MEDICAITONS, SEE MAR. PT SITTING UP IN BED AND RESPONDS WHEN ADDRESSED. PT TAKES PO MEDICATIONS WITH NO ISSUES. DR. EVANS AND SHARLA, RN IN ROOM. PT ON CELL PHONE. NO OTHER NEEDS IDENTIFIED AT THIS TIME. CALL LIGHT IN REACH.
--- NOTE | 2024-01-13 09:09 | NUR ---
IN ROOM WITH DR. EVANS. DISCUSS INABILITY TO PLACE PATIENT IN SNF AND PT RECOMMENDATION FOR HOME HEALTH AND STATING SHE IS SAFE TO DC TO HOME. PATIENT BECOMES AGITATED AND STATES SHE DOES NOT KNOW HOW SHE IS GOING TO GET UP HER STAIRS TO GET TO HER APARTMENT. INFORMED PATIENT SHE MAY CALL [facility] FOR ASSIST TO GET INTO HER APARTMENT IF SHE REMAINS UNABLE TO COMPLETE ALL STEPS. STATES THEY MADE HER "ASS WALK DOWN THE STAIRS WHEN I HAD MY STROKE AND IT TOOK 20 MINUTES." ALSO DISCUSSED HOME HEALTH SERVICES FOR PT AND OT TO HELP INCREASE HER STRENGTH AND IMPROVE HER ABILITY TO FUNCTION AT HOME. REFUSES HOME HEALTH. STATES "THIS IS THE WORST THIS HOSPITAL HAS EVER BEEN, YOU GUYS AREN'T DOING ANYTHING TO HELP ME." DISCUSSED INSURANCE REQUIREMENTS, NEED FOR ACCEPTING FACILITY WELL AND ALSO NEED FOR SKILLED CARE WHICH SHE NO LONGER MEETS CRITERIA BECAUSE SHE HAS IMPROVED ENOUGH TO GO HOME. ATTEMPTS TO CALL HER MOTHER, NO ANSWER. STATES SHE REFUSES CARE RIDE AND HER MOTHER WILL LIKELY NOT BE IN FACILITY TO PICK HER UP UNTIL 6 OR 7 THIS EVENING. HER MOTHER CALLS BACK, PATIENT CONTINUES WITH RAISED VOICE TOWARD STAFF PRIOR TO ANSWERING PHONE, CURSING AT STAFF. WHEN SHE ANSWERS PHONE TALKING LOUDLY AND CURSING ABOUT HOSPITAL STATING "THEY WANT TO SEND MY EMILYKING ASS HOME." STATES MULTIPLE TIMES TO STAFF SHE IS "PISSED OFF." INFORMED STAFF MEMBERS CASE MANAGEMENT IS AVAILABLE TO FURTHER SPEAK WITH PATIENT IF NEEDED.
--- NOTE | 2024-01-13 09:19 | NUR ---
PRESCRIPTION, NOTES AND FACESHEET FAXED TO [facility].
--- NOTE | 2024-01-13 10:34 | NUR ---
STATES HER MOTHER HAS NO WAY TO PICK HER UP DUE TO ROAD CLOSURES. PATIENT IS CALLING FRIENDS TO TRY TO GET A RIDE HOME. CARE RIDE OFFERED. STATES SHE ONLY TRUSTS [facility] TO TRANSPORT HER. INSTRUCTED TO NOTIFY STAFF IF SHE IS UNABLE TO FIND A RIDE HOME AND CARE RIDE WILL BE SET UP. VERBALIZES UNDERSTANDING.
--- NOTE | 2024-01-13 10:37 | NUR ---
CALLED MAGDA AT [facility]. LEFT MESSAGE THAT PATIENT HAS BEEN CLEARED BY PT TO DC TO HOME.
--- NOTE | 2024-01-13 10:39 | NUR ---
IN TO ROUND ON PT. NIH SCORE OF 1 NOTED. PT REPORTING SENSATION "FEELS DIFFERENT IN LEFT LEG COMPARED TO RIGHT LEG." ASSESSMENT COMPLETE. LUNG SOUNDS CLEAR. BOWEL TONES ACTIVE. ABD SOFT AND NON-TENDER WITH PALPATION. PT REPORTING PAIN 8/10 TO LEFT THIGH. PT DENIES PRN PAIN MEDICATION WHEN OFFEREED. PT DENIES HOT PACK OR ICE PACK WHEN OFFERED. PEDAL PULSES PALPABLE, EQUAL AND FAINT. PT A&O TO ALL. PT DENIES ANY OTHER NEEDS AT THIS TIME. CALL LIGHT IN REACH.
--- NOTE | 2024-01-13 10:55 | NUR ---
PATIENT DISCHARGE PAPERS REVIEWED WITH PATIENT. LEFT ARM IV REMOVED. TELE REMOVED. PLAN TO CALL [facility].
--- NOTE | 2024-01-13 10:59 | NUR ---
RECEIVED MESSAGE FROM ANGELA AT [facility], THEY ARE WILLING TO ACCEPT PATIENT TO SNF ON THURSDAY.
--- NOTE | 2024-01-13 11:19 | NUR ---
ATTEMPT TO CONTACT [facility] TO SET UP TRANSPORT. MESSAGE LEFT TO CONTACT HOSPITAL REGARDING TRANSPORT.
--- NOTE | 2024-01-13 11:48 | NUR ---
[facility] SET UP FOR PATIENT TO DC TO HOME. WILL ARRIVE TO PICK PATIENT UP IN 20-25 MINUTES. PATIENT AND STAFF NOTIFIED.
--- NOTE | 2024-01-13 11:58 | NUR ---
PATIENT AND SON, ANA MARIA, NOTIFIED OF [facility] ACCEPTING PATIENT. THEY WILL COME TO FACILITY TO SEE PATIENT BETWEEN 1:30 AND 2:00 PM. SON WOULD LIKE PATIENT TO TRANSPORT VIA WHEELCHAIR VAN ON THURSDAY TO [facility].
== END 2024-01-13 12:05 | disposition home or self-care (01) | DRG 65 ==
LOC: ED 23:05 → CCU 01-09 02:50 → MS 01-09 12:40
PROVIDERS: Internal Medicine; ADMIT Family Medicine; ATTEND Family Medicine
DX: I63.9 Cerebral infarction, unspecified (principal); N17.9 Acute kidney failure, unspecified; Z68.41 Body mass index [BMI] 40.0-44.9, adult; I25.10 Atherosclerotic heart disease of native coronary artery without angina pectoris; G43.909 Migraine, unspecified, not intractable, without status migrainosus; E11.9 Type 2 diabetes mellitus without complications; E66.01 Morbid (severe) obesity due to excess calories; I10 Essential (primary) hypertension; F17.210 Nicotine dependence, cigarettes, uncomplicated; M54.9 Dorsalgia, unspecified; G89.29 Other chronic pain; F41.9 Anxiety disorder, unspecified; R47.81 Slurred speech; F12.90 Cannabis use, unspecified, uncomplicated; Z98.890 Other specified postprocedural states; Z98.51 Tubal ligation status; Z79.4 Long term (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; Z91.148 Patient's other noncompliance with medication regimen for other reason; Z86.14 Personal history of Methicillin resistant Staphylococcus aureus infection; Z88.8 Allergy status to other drugs, medicaments and biological substances; Z91.040 Latex allergy status; Z79.899 Other long term (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; Z79.51 Long term (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 of inhaled steroids; Z95.5 Presence of coronary angioplasty implant and graft; I25.2 Old myocardial infarction
CPT/HCPCS: 36415; 70450; 70496; 70498; 70551; 71045; 80048; 80053; 80061; 83036; 83735; 83880; 84439; 84443; 84484; 84703; 85025; 93005; 93010; 93306; 97110; 97112; 97116; 97162; 97530; A9270; J1815; J3475; Q9967

== ENCOUNTER 2024-04-04 23:58 | Emergency (ER) | payer OTHER ==
[~2024-04-04] VITALS: Ht 167.6 cm; Wt 128.1 kg
[~2024-04-04 23:58] MED LIST changes: +CLOPIDOGREL75 MG PO
[2024-04-05] MEDS ORDERED: ASPIRIN 81 MG CHEW PO ONE ×2 (00:15→01:00)
[2024-04-05 00:19] LABS: BASOPHILS 0.7 % (0-2); EOSINOPHILS 2.2 % (0-6); HEMATOCRIT 39.4 % (35.0-50.0); HEMOGLOBIN 13.8 g/dL (12.0-18.0); LYMPHOCYTES 33.3 % (24-44); MCH 29.6 (27-36); MCV 84.6 fl (81-99); MONOCYTES 5.4 % (0-12); NEUTROPHILS 58.4 % (39-80); PLATELET COUNT 292 K/uL (140-440); RBC 4.65 M/ul (4.3-5.7)
[2024-04-05] MEDS ORDERED: NITROGLYCERIN 0.4 MG SUBL SL PRN (00:30)
[2024-04-05 00:58] LABS: INR 0.9 (0.80-1.30); PROTIME 11.8 Sec (11.2-14.2)
[2024-04-05 01:05] LABS: ALBUMIN/GLOBULIN RATIO 0.43 (1.1-2.4); BILIRUBIN, TOTAL 0.9 ng/dL (0.2-1.0); CALCIUM 8.8 mg/dL (8.5-10.1); CREATININE, SERUM 1.35 mg/dL (0.55-1.02); MAGNESIUM 1.9 mg/dL (1.8-2.4); PROTEIN, TOTAL 6.6 g/dL (6.4-8.2)
[2024-04-05 05:08] VITALS: BP 163/85
--- NOTE | 2024-04-07 21:35 | EKG ---
[facility] [address] [facility] [place] [address] Signed Normal sinus rhythm Normal ECG When compared with ECG of 08-JAN-2024 23:38, No significant change was found Confirmed by Orlin Wade MD ([id number]) on 04/07/2024 9:34:54 PM Electronically Signed By: ORLIN WADE DO 04/07/24 2135 PATIENT NAME: WILBERT KUO SABINO Electrocardiogram DATE OF : 76 PHYSICIAN: ORLIN WADE DO REPORT #: [id number] REPORT IS CONFIDENTIAL AND NOT TO BE RELEASED WITHOUT AUTHORIZATION
== END 2024-04-05 05:17 | disposition home or self-care (01) ==
LOC: ED 23:58
PROVIDERS: Internal Medicine
DX: R07.89 Other chest pain (principal); E66.01 Morbid (severe) obesity due to excess calories; E11.9 Type 2 diabetes mellitus without complications; I25.10 Atherosclerotic heart disease of native coronary artery without angina pectoris; I25.2 Old myocardial infarction; I10 Essential (primary) hypertension; Z95.2 Presence of prosthetic heart valve; Z86.73 Personal history of transient ischemic attack (TIA), and cerebral infarction without residual deficits; F17.290 Nicotine dependence, other tobacco product, uncomplicated; Z91.040 Latex allergy status; Z88.8 Allergy status to other drugs, medicaments and biological substances; Z91.09 Other allergy status, other than to drugs and biological substances; Z91.018 Allergy to other foods; Z79.899 Other long term (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
CPT/HCPCS: 36415; 71045; 80053; 83735; 84484; 85025; 85610; 93005; 93010; 99285-25; A9270

== ENCOUNTER 2024-05-07 17:16 | Inpatient (IN) | payer OTHER ==
[~2024-05-07] VITALS: Ht 167.6 cm
[~2024-05-07 17:16] MED LIST changes: +SEVOFLURANE 250 ML BTL INH ONE
[2024-05-07] MEDS ORDERED: HYDROmorphone HCL 1 MG/ML SYR IV ONE (17:45)
[2024-05-07] MEDS ORDERED: CEFEPIME HCL/D5W 2 GM/100 ML PIGGYBACK IV ONE (17:45)
[2024-05-07] MEDS ORDERED: VANCOMYCIN HCL/D5W 1 GM/270 ML PIGGYBACK KIT IV ONE (17:45)
[2024-05-07] MEDS ORDERED: SODIUM CHLORIDE 0.9% 1,000 ML IV PRN (17:45)
[2024-05-07 18:06] LABS: BASOPHILS 0.3 % (0-2); EOSINOPHILS 0.4 % (0-6); HEMATOCRIT 35.1 % (35.0-50.0); HEMOGLOBIN 11.8 g/dL (12.0-18.0); LYMPHOCYTES 6.4 % (24-44); MCH 28.3 (27-36); MCHC 33.7 g/dl (30-36); MCV 84.1 fl (81-99); MONOCYTES 5.3 % (0-12); NEUTROPHILS 87.6 % (39-80); PLATELET COUNT 451 K/uL (140-440); RBC 4.17 M/ul (4.3-5.7)
[2024-05-07 18:10] LABS: INR 1.12 (0.80-1.30)
[2024-05-07] MEDS ORDERED: DEXTROSE 5% 500 ML IV ONE (18:10)
[2024-05-07 18:12] LABS: PARTIAL THROMBOPLASTIN TIME 31.2 Sec (22.9-41.3)
[2024-05-07 18:15] LABS: ALBUMIN 0.9 g/dL (3.4-5.0); ALBUMIN/GLOBULIN RATIO 0.13 (1.1-2.4); BILIRUBIN, TOTAL 0.8 ng/dL (0.2-1.0); BUN/CREATININE RATIO 10.62 (6.0-28.6); CALCIUM 8.7 mg/dL (8.5-10.1); CREATININE, SERUM 2.07 mg/dL (0.55-1.02); PROTEIN, TOTAL 7.8 g/dL (6.4-8.2)
[2024-05-07] MEDS ORDERED: VANCOMYCIN HCL 3,000 MG in DEXTROSE 5% 500 ML IV ONE (18:15)
[2024-05-07 18:20] LABS: BILIRUBIN, URINE POSITIVE (negative); BLOOD/HGB, URINE LARGE (Negative); KETONE, URINE SMALL (Negative); LEUK ESTERASE, URINE NEGATIVE (negative); NITRITE, URINE NEGATIVE (negative)
[2024-05-07 18:26] LABS: EPITHELIAL CELLS, URINE SQUAMOUS 1+ /lpf (0-1+)
[2024-05-07 18:28] LABS: BACTERIA, URINE 4+ /hpf (negative); CASTS, URINE NONE SEEN \\lpf; CRYSTALS, URINE NONE SEEN (0-1+); WHITE BLOOD CELLS, URINE >50 /HPF (0-5)
[2024-05-07 18:29] LABS: COLLECTION TYPE, URINE CLEAN CATCH; REFLEX CULTURE, URINE Yes (No)
[2024-05-07 18:35] LABS: LACTIC ACID, BLOOD 2.6 mmol/L (0.4-2.0)
[2024-05-07] MEDS ORDERED: ENOXAPARIN SODIUM 40 MG/0.4 ML SYR SUB-Q SCH (19:53)
[2024-05-07] MEDS ORDERED: IBLOOD GLUCOSE TEST STRIP 1 EA TEST XX PRN (20:00)
[2024-05-07] MEDS ORDERED: DEXTROSE 50% 50 ML SYR IV PRN ×2 (20:00)
[2024-05-07] MEDS ORDERED: DEXTROSE 5% 1,000 ML IV PRN (20:00)
[2024-05-07] MEDS ORDERED: ondansetron HCL 4 MG/2 ML VIAL IV PRN (20:00)
[2024-05-07] MEDS ORDERED: GLUCAGON,HUMAN RECOMBINANT 1 MG/ML VIAL SUB-Q PRN (20:00)
[2024-05-07] MEDS ORDERED: LACTATED RINGER'S 1,000 ML IV SCH (20:00)
[2024-05-07] MEDS ORDERED: ACETAMINOPHEN 325 MG TAB PO PRN (20:00)
[2024-05-07 20:10] LABS: LACTIC ACID, BLOOD 1.1 mmol/L (0.4-2.0)
[2024-05-07] MEDS ORDERED: IBLOOD GLUCOSE TEST STRIP 1 EA TEST VI SCH (21:00)
[2024-05-07] MEDS ORDERED: MELATONIN 3 MG TAB PO PRN (21:00)
[2024-05-07] MEDS ORDERED: INSULIN LISPRO 100 UNIT/ML ML SUB-Q SCH (21:00)
[2024-05-07 21:12] VITALS: BP 141/62
--- NOTE | 2024-05-07 21:28 | NUR ---
2100 - pt admitted to room 114 from ED via stretcher, helped transfer self to bed slowly, c/o not having enough strenght, no c/o sob or dizziness. alert and oriented with admit wuestions. IVF infusing RAC. red, hot and moist fadumo area noted, more tenerness on left labia. scratches LE from cats. pt has a hx of MRSA, will be placed on contact precatuions per nursing judgement until cultures are back. - cbg 389? Dr Su notified verablly as he is still here. will write new orders. pt aware. denies s/sx hyperglycemia at this time
--- NOTE | 2024-05-07 22:00 | NUR ---
Red Rash under breast noted, dried, dry towels placed. redness and rash noted under abd folds and pubic area. specially Left sided. very moist L groin w 4 open areas white edges and one with black edges, serous drainage, strong smell. abd applied. edges marked, tender. redness and open areas L upper inner groing/hip area , open with moist serous drainage present. will notify Dr Salcedo was cooperative, 2PA
--- NOTE | 2024-05-07 22:19 | NUR ---
DR WADE IN ROOM
[2024-05-07 22:45] VITALS: BP 141/62
[2024-05-07] MEDS ORDERED: METOPROLOL TARTRATE 25 MG TAB PO SCH (22:53)
[2024-05-07] MEDS ORDERED: INSULIN GLARGINE-YFGN 100 UNIT/ML ML SUB-Q SCH (22:53)
[2024-05-07] MEDS ORDERED: ATORVASTATIN 40 MG TAB PO SCH (22:54)
[2024-05-07] MEDS ORDERED: MICONAZOLE NITRATE 1 EA BTL TOP SCH (23:06)
[2024-05-07] MEDS ORDERED: ALBUTEROL SULFATE 0.083% 3 ML VIAL INH PRN (23:45)
--- NOTE | 2024-05-07 23:52 | NUR ---
awake, on room air, no c/o pain. IVF infusing, turns and repositions self in bed. Had loose stools earlier, fadumo care done., fadumo pad changed
[2024-05-08] VITALS (15 sets, daily range): BP systolic 108–145; BP diastolic 57–79
--- NOTE | 2024-05-08 02:40 | NUR ---
pt awakens easy. no c/o pain. fadumo care done, smear of bm. decreased redness noted under pannus and mons pubis area. left groing/labial area and under L hip open areas with serous drainage. open to air, abd placed loosely at nursing judgement, area tender tolerated well. IVF infusing w/o problems, c/o weak LE, turns and repositions slowly self in bed,
--- NOTE | 2024-05-08 04:31 | NUR ---
Eyes closed, no s/sx distress, on room air, IVF infusing w/o problems.
[2024-05-08 05:26] LABS: BASOPHILS 0.6 % (0-2); EOSINOPHILS 0.8 % (0-6); HEMATOCRIT 31.2 % (35.0-50.0); HEMOGLOBIN 10.3 g/dL (12.0-18.0); LYMPHOCYTES 9.7 % (24-44); MCHC 33.1 g/dl (30-36); MCV 84.8 fl (81-99); MONOCYTES 5.5 % (0-12); NEUTROPHILS 83.4 % (39-80); PLATELET COUNT 431 K/uL (140-440); RBC 3.68 M/ul (4.3-5.7); RDW 12.8 (10.5-15.0)
[2024-05-08 05:41] LABS: BUN/CREATININE RATIO 12.1 (6.0-28.6); CALCIUM 8.1 mg/dL (8.5-10.1); CREATININE, SERUM 1.9 mg/dL (0.55-1.02)
[2024-05-08] MEDS ORDERED: CEFEPIME HCL/D5W 2 GM/100 ML PIGGYBACK IV SCH (06:00)
--- NOTE | 2024-05-08 06:12 | NUR ---
Has slept well, no c/o abd pain. IVF infusing w/o problems. no c/o adverse reaction to IV abx. Had loose stool x1.. Up to BSC w 2 PA. helps with movement, slow, tolerated fair. unsteady. c/o L sided weakness. Continues to have small amount of serous drainge L groin area. redness much improved periarea. redness under brest area. powder applied as per orders. scratchd areas bilat legs no changes. Pleasant and cooperative. On cCOntact precautions
[2024-05-08] MEDS ORDERED: LEVOTHYROXINE SODIUM 25 MCG TAB PO SCH (07:00)
--- NOTE | 2024-05-08 07:14 | NUR ---
REPORT RECEIVED FROM GREG SOSA. PT RESTING IN BED, RESPONDS WHEN SPOKEN TO. REQUESTING WARM BLANKET. NO OTHER NEEDS, CALL LIGHT IN REACH.
--- NOTE | 2024-05-08 07:42 | NUR ---
WARM BLANKET AND FRESH ICE WATER PROVIDED. PT ALSO REPORTING PAIN 8/10 IN HER LEFT GROIN AREA, PT REQUESTING PAIN MEDICATION. NO OTHER NEEDS AT THIS TIME, CALL LIGHT AND PERSONAL BELONGINGS IN REACH.
[2024-05-08] MEDS ORDERED: POTASSIUM BICARBONATE/CIT AC 20 MEQ TABEF PO ONE (08:30)
--- NOTE | 2024-05-08 08:45 | NUR ---
IN DR DAMON IS EXAMINING PT WITH RN AT BEDSIDE. MD STATE PT IS NOW NPO FOR THE REST OF THE DAY. MD MENTIONS POTENTIAL FOR SURGERY TODAY, CONSENT SIGNED AT THIS TIME. NO FURTHER NEEDS, CALL LIGHT IN REACH.
[2024-05-08] MEDS ORDERED: DAPTOmycin 500 MG/10 ML VIAL IV SCH (09:00)
[2024-05-08] MEDS ORDERED: VANCOMYCIN PER PHARMACY PROTOCOL IV SCH (09:00)
[2024-05-08] MEDS ORDERED: POTASSIUM CHLORIDE 10 MEQ TABCR PO ONE (09:00)
[2024-05-08] MEDS ORDERED: GABAPENTIN 300 MG CAP PO SCH ×2 (09:00→21:00)
[2024-05-08] MEDS ORDERED: CLOPIDOGREL BISULFATE 75 MG TAB PO SCH (09:00)
[2024-05-08] MEDS ORDERED: POTASSIUM CHLORIDE 40 MEQ in DEXTROSE 5% 250 ML IV ONE (09:15)
[2024-05-08] MEDS ORDERED: HYDROmorphone HCL 1 MG/ML SYR IV PRN ×2 (09:30→15:45)
--- NOTE | 2024-05-08 10:21 | NUR ---
MEDICATIONS ADMINISTERED PER MAR, INITIAL ASSESSMENT COMPLETE, AND PT SURGICAL WIPE DOWN COMPLETE. FRESH LINENS PROVIDED, MIRYAM-CARE PROVIDED. PRN PAIN MEDICATION ADMINISTERED FOR GROIN PAIN PT RATES 01/29. VITALS AND I&OS DOCUMENTED. PT VOIDS 700 AT BEDSIDE COMMODE, URINE IS YELLOW, CLOUDY, AND HAS VISIBLE SEDIMENT. LUNG SOUNDS CLEAR, PT ON RA. HEART TONES HEARD WNL. BOWEL TONES ACTIVE. PT NPO IN PREP FOR SURGERY. DR WADE PRESENT FOR BEGINNINGS OF CARES, GIVES VERBAL ORDERS TO THIS RN - INPUT AT BEDSIDE. IV TO R AC FLUSHES WNL. PT REPORTING NO NAUSEA AT THIS TIME. PT HAS MULTIPLE WOUNDS AND SCARS VISIBLE ON HER ARMS AND LEGS. GROIN WOUNDS OPEN WITH PURULENT DRAINAGE ON BRIEF, PAINFUL TO TOUCH. REDNESS NOTED TO GROIN, TOP OF THIGHS, AND UNDER BREASTS. PT BACK TO BED, HAS NO FURTHER NEEDS AT THIS TIME, CALL LIGHT IN REACH.
[2024-05-08] MEDS ORDERED: INSULIN GL100 UNIT/2 SUB-Q (10:25)
--- NOTE | 2024-05-08 11:11 | NUR ---
CHARGE NURSE GREG ONEILL PRESENT IN ROOM TO APPLY TELE ORDERED.
[2024-05-08] MEDS ORDERED: PHARMACY RENAL DOSE ADJUSTMENT 1 DOSE MISC PO SCH (12:00)
--- NOTE | 2024-05-08 13:18 | NUR ---
PT RESTING ON L SIDE IN BED, NO NEEDS AT THIS TIME, CALL LIGHT IN REACH.
--- NOTE | 2024-05-08 13:40 | NUR ---
MEDICATION ADMINISTERED PER AUG. PT RESTING ON R SIDE, STATES SHE IS COMFORTABLE IN THIS POSITION BUT HAVING L GROIN PAIN RATED 8/10. PRN PAIN MEDICATION ADMINISTERED. CHUX CHANGED BENEATH PT D/T HAVING DRAINAGE ON THEM. PT ROLLS IN BED WITHOUT ASSISTANCE. PT RETURNS TO LYING ON R SIDE. NO OTHER NEEDS AT THIS TIME, CALL LIGHT AND PERSONAL BELONGINGS IN REACH.
[2024-05-08] MEDS ORDERED: CEFEPIME HCL/D5W 1 GM/100 ML PIGGYBACK IV SCH (14:00)
--- NOTE | 2024-05-08 14:12 | CONS ---
[facility] [address], [place] [address] Signed DATE OF CONSULTATION: 05/08/2024 CHIEF COMPLAINT: Left perineal abscess. HISTORY OF PRESENT ILLNESS: Heather is 44-year-old obese diabetic female, who used to weigh over 500 pounds. She is now down around just over 200 pounds. Her body mass index is 43. She tells me I helped her with incision and drainage of a gluteal abscess a number of years ago. Two days ago, she started to develop pain and swelling in the left labia. She apparently called the emergency room, was instructed to use hot packs until it opened. She finally came to emergency room yesterday with quite a bit of pain and swelling and odor coming from the left perineum and underneath her pannus. In the ER, her white count was elevated along with her blood sugar. The two wounds were open and there was pus coming from the wounds. She ended up getting a CT scan which showed stranding in the left mons, groin and labial area and even down into the gluteal crease a bit. She was admitted to the Medical services and started on vancomycin, cefepime. I have been asked to see her as a general surgeon on-call. This morning, she seems to be doing well and she was eating her breakfast. PAST MEDICAL HISTORY: Hypertension, diabetes, obesity, coronary artery disease, MRSA, chronic back pain, headaches, anxiety, CO x3 with the last one in 2020 and a stroke in December 2023. PAST SURGICAL HISTORY: She has right ankle surgery, hernia surgery, attempted , tooth extraction, cardiac stents x3, incision and drainage x2. SOCIAL HISTORY: She has occasional drink. She does use marijuana, not sure about her smoking status. She sees Dr. Prateek Chapman as her primary care provider, Dr. Kaylin Sánchez is her greenhouse worker. She prefers the [facility]. She is , has an apartment with her . Apparently has two or three children. She told me her 's phone is turned off because our local [employer] was closed down and he was one of their cooks. Therefore, she asked me to call her mother, Kimmy Mcadams at [phone] and if that is not available she wants me to use the telephone number for her aunt at [phone]. FAMILY HISTORY: Dad had CO, lung cancer, diabetes, hypertension. REVIEW OF SYSTEMS: She had 10 systems reviewed and she filled in some of the detail above. Electronically Signed By: BEN DAMON MD 05/08/24 1412 PATIENT NAME: HEATHER KUO CONSULTATION DATE OF : 76 REPORT #: [id number] PHYSICIAN: BEN DAMON MD PCP: PRATEEK CHAPMAN MD REPORT IS CONFIDENTIAL AND NOT TO BE RELEASED WITHOUT AUTHORIZATION [address] [address] Signed ALLERGIES: Tapioca, calamine, metformin, latex, and apricot. MEDICATIONS: Metoprolol, atorvastatin, gabapentin, nitroglycerin, Plavix, albuterol, and multivitamin. PHYSICAL EXAMINATION: VITAL SIGNS: Her blood pressure is 143/73, heart rate is 82, respiratory rate 20, temperature 97.9. She is 100% on room air. She is 5 feet 6 inches tall, 121 kg, body mass index is 43. GENERAL: Heather is a 44-year-old female, lying supine semi-recumbent in her hospital bed, watching TV, and eating her breakfast. She is not systemically ill or toxic. LUNGS: Clear to auscultation bilaterally. HEART: Regular rate and rhythm without murmurs. ABDOMEN: Obese. She has a large pannus. With the help of our two nurses, we were able to see that she has two areas in the labia that were open with pus coming out with erythema and swelling in the pannus and extending up onto the left mons pubis. LABORATORY DATA: Her white blood cell count was 19.7, is now 17.0. Her hemoglobin was 11.8 and it is now 10.3, neutrophils 83. Potassium is little low at 3. She has chronic renal failure with a creatinine 1.9, BUN 23, blood sugars were over 200. The wound culture shows gram-positive cocci in chains, white blood cells. Urinalysis also shows bacteria, blood and glucose. Of course the urine culture is pending. The blood cultures are pending. Her lactic acid was 2.6, alkaline phosphatase little up at 121, albumin is low at 0.9. INR 1.1. RADIOGRAPHIC STUDIES: CT scan of abdomen and pelvis are reviewed along with the report. She does have inflammation of the left mons area along with the labia in the groin. There is no obvious drainable abscess. ASSESSMENT AND PLAN: Heather is a 44-year-old obese diabetic female, who presents with a left perineal abscess with some inflammation up onto the left mons and into the left groin area and maybe even down in the left gluteal area. There were two areas that were open. I explained that we got to withhold her food at this point. We will talk to our anesthesia provider to get her to the OR later today for incision and drainage of these areas. We will flush all that out. We will use a full strength Dakin's soaked gauze to pack those wounds as we did her gluteal abscesses before. She will stay on her IV antibiotics. She is clearly going to need a few days in the hospital. She has expressed understanding and agrees with above plan. Electronically Signed By: BEN DAMON MD 05/08/24 1412 PATIENT NAME: HEATHER KUO CONSULTATION DATE OF : 76 REPORT #: [id number] PHYSICIAN: BEN DAMON MD PCP: PRATEEK CHAPMAN MD REPORT IS CONFIDENTIAL AND NOT TO BE RELEASED WITHOUT AUTHORIZATION [address] [address] Signed Ben Damon MD ALB/MODL /[id number] cc: MD Dr. Kelley Chery MD Copies: PRATEEK CHAPMAN MD, ANDREW L MD ~ Electronically Signed By: BEN DAMON MD 05/08/24 1412 PATIENT NAME: HEATHER KUO CONSULTATION DATE OF : 76 REPORT #: [id number] PHYSICIAN: BEN DAMON MD PCP: PRATEEK CHAPMAN MD REPORT IS CONFIDENTIAL AND NOT TO BE RELEASED WITHOUT AUTHORIZATION
--- NOTE | 2024-05-08 14:35 | NUR ---
MED REC COMPLETE
[2024-05-08] MEDS ORDERED: ondansetron HCL 4 MG/2 ML VIAL ONE (14:47)
[2024-05-08] MEDS ORDERED: ROCURONIUM BROMIDE 50 MG/5 ML SYR ONE (14:47)
[2024-05-08] MEDS ORDERED: fentaNYL citrate 100 MCG/2 ML VIAL ONE (14:47)
[2024-05-08] MEDS ORDERED: ACETAMINOPHEN 1,000 MG/100 ML VIAL ONE (14:47)
[2024-05-08] MEDS ORDERED: propofoL 200 MG/20 ML VIAL ONE (14:47)
[2024-05-08] MEDS ORDERED: SUCCINYLCHOLINE IN 0.9% NACL 200 MG/10 ML SYRINGE ONE (14:47)
[2024-05-08] MEDS ORDERED: LIDOCAINE HCL 2% 5 ML SDV ONE (14:47)
[2024-05-08] MEDS ORDERED: MIDAZOLAM HCL 2 MG/2 ML VIAL ONE (14:48)
[2024-05-08] MEDS ORDERED: SUGAMMADEX SODIUM 200 MG/2 ML ML ONE (14:48)
--- NOTE | 2024-05-08 15:07 | NUR ---
DAY SURGERY STAFF LEFT THE FLOOR AT THIS TIME WITH PT. PT REQUESTING THAT THIS RN ORDER HER A CHEESEBURGER FOR DINNER. RN CALLED DIETARY TO ORDER.
[2024-05-08] MEDS ORDERED: MUPIROCIN 22 GM TUBE ONE (15:22)
[2024-05-08] MEDS ORDERED: fentaNYL citrate 50 MCG/ML SDV IV PRN (15:45)
[2024-05-08] MEDS ORDERED: droPERidol 5 MG/2 ML VIAL IV PRN (15:45)
[2024-05-08] MEDS ORDERED: IBLOOD GLUCOSE TEST STRIP 1 EA TEST VI PRN (15:45)
[2024-05-08] MEDS ORDERED: NALOXONE HCL 0.4 MG SYR IV PRN (15:45)
[2024-05-08] MEDS ORDERED: ondansetron HCL 4 MG/2 ML VIAL IV PRN (15:45)
[2024-05-08] MEDS ORDERED: PROCHLORPERAZINE EDISYLATE 10 MG/2 ML VIAL IV PRN (15:45)
--- NOTE | 2024-05-08 16:06 | NUR ---
PT REMAINS OFF THE FLOOR.
--- NOTE | 2024-05-08 16:23 | NUR ---
05/08/24 1623 Meredith Cunningham 1606-PT ARRIVES TO PACU RESTING SEMI DUMONT. PT NO RESPONSIVE TO NOXIOUS STIMULI. VSS ON 6L VIA MASK AND OPA IN PLACE, REU. 1613-PT AWAKENS ON WON, OPA REMOVED, AND PT TITRATED TO RA. VSS, REU. PT DENIES PAIN OR NAUSEA, FALLS BACK ASLEEP EASILY. 1615- CBG CHECKED AT BEDSIDE, 199, REPORTED TO ANESTHESIA.
[2024-05-08] MEDS ORDERED: OXYCODONE HCL 5 MG TAB PO PRN (16:30)
--- NOTE | 2024-05-08 16:38 | NUR ---
PT RETURNS TO FLOOR VIA STRETCHER FROM SURGERY. PT TRANSFERRED TO HOSPITAL BED. REPORT RECEIVED. VS TAKEN, PT ON CPOX, SCDs IN PLACE. PT LUNG SOUNDS CLEAR THROUGHOUT, BOWEL TONES ACTIVE THROUGHOUT, HEART TONES HEARD. PT REPORTING DISCOMFORT TO HER GROIN. ICE PACKS PLACED. MESH PANTIES IN PLACE, KERLIX HAS SEROSANGUINEOUS DRAINAGE AT ALL THREE SITES. PT NOT CURRENTLY REQUESTING PAIN MEDICATION. IVF RESTARTED AT 125ML/HR PER ORDERS. GREG DUPONT CHECKS BLOOD SUGAR AND RECORDS. PT DINNER TRAY ARRIVES, ICE WATER ALSO PROVIDED. NO OTHER NEEDS AT THIS TIME, CALL LIGHT AND PERSONAL BELONGINGS IN REACH.
--- NOTE | 2024-05-08 19:56 | NUR ---
PT AWAKENS EASILY, NO S/SX DISTRESS, IVF INFUSING, CPOX ON AT BEDSIDE POST OP.
[2024-05-08] MEDS ORDERED: MUPIROCIN 22 GM TUBE TOP SCH (21:00)
[2024-05-08] MEDS ORDERED: DOCUSATE SODIUM 100 MG CAP PO SCH (21:00)
[2024-05-08] MEDS ORDERED: SODIUM HYPOCHLORITE 0.25% TOP SCH (21:00)
--- NOTE | 2024-05-08 21:05 | EKG ---
[facility] [address] [facility] [place] [address] Signed Normal sinus rhythm Prolonged QT Abnormal ECG No previous ECGs available Confirmed by Kalen Wade MD ([id number]) on 05/08/2024 9:05:18 PM Electronically Signed By: KALEN WADE DO 05/08/242104 PATIENT NAME: WILBERT KUO Electrocardiogram DATE OF : 76 PHYSICIAN: KALEN WADE DO REPORT #: [id number] REPORT IS CONFIDENTIAL AND NOT TO BE RELEASED WITHOUT AUTHORIZATION
--- NOTE | 2024-05-08 21:46 | NUR ---
2100 - pt medicated with dilaudid 1mg iv prior to dressing changes. all cares explained, 2PA. turned and repositionined, denied needing to get up to BRP. IVF infusing RA. tele#[address] SR, powder under breast pinkish area applied, much improved. area cleansed prior to applying powder. areas under pannus dried and powder applied. dressing changes to 3 surgical open areas L pubic and L inner upper thigh area done as per orders. tolerated fair. tender to touch, firm areas and red, no drainage. SCDS in place. CBG 278, received 7 units SSI and scheduled 20 units Gargline. awake, watchng tv now. post op CPOX in place
--- NOTE | 2024-05-08 22:36 | NUR ---
RESTING, EYES CLOSED, NO FURTHER C/O PAIN, ON ROOM AIR, POST OP CPOX ON AT BEDSIDE. IVF INFUSING. SCDS IN PLACE
[2024-05-09] VITALS (10 sets, daily range): BP systolic 108–150; BP diastolic 59–87
--- NOTE | 2024-05-09 00:43 | NUR ---
Resting, no s/sx distress, eyes closed, IVF infusing, scds in place, cpox at bedside
--- NOTE | 2024-05-09 02:41 | NUR ---
awakens easily, no c/o pain, on room air, IVF infusing w/o problems. post op CPOX on at bedside. Dressing to L groin intact.
--- NOTE | 2024-05-09 05:21 | NUR ---
Up to BRP, FWW/1PA. VOIDED, BACK TO BED, TOLERATED WELL. C/O ABD AND LOW BACK PAIN 01/29 . MEDICATED WITH 2 NORCO
--- NOTE | 2024-05-09 05:42 | NUR ---
UP TO BSC, VOIDED, LARGE AMOUNT OF URINE, DARK YELLOW-ORANGE COLORED CLOUDY WITH SEDIMENTS. STRONG ODOR. HELPED MOVING IN BED SLOW. 1-2PA TO BSC, TOLERATED WELL, BACK TO BED, HELPED WITH REPOSITIONING. ON ROOM AIR. CPOX ON POST OP AT BEDSIDE. DRESSING L GROIN AREA PACKING IN PLACE. REDNESS AROUND PUBIC AREA NO CHANGES. PINKISH UNDER BREAST. TOLERATING LIQUIDS WELL. C/O PAIN AFTER RETURNING TO BED. MEDICATED WITH 5MG OXYCODONE PER 8/10 L GROING AREA PAIN
[2024-05-09 05:56] LABS: BASOPHILS 0.4 % (0-2); EOSINOPHILS 1.8 % (0-6); HEMATOCRIT 31.8 % (35.0-50.0); HEMOGLOBIN 10.8 g/dL (12.0-18.0); MCH 28.7 (27-36); MCHC 33.9 g/dl (30-36); MCV 84.8 fl (81-99); MONOCYTES 5.5 % (0-12); NEUTROPHILS 81.3 % (39-80); PLATELET COUNT 434 K/uL (140-440); RBC 3.75 M/ul (4.3-5.7); RDW 13.1 (10.5-15.0)
[2024-05-09 06:06] LABS: ANION GAP 16.4 (7-21); BUN/CREATININE RATIO 11.16 (6.0-28.6); CALCIUM 8.5 mg/dL (8.5-10.1); CREATININE, SERUM 1.97 mg/dL (0.55-1.02); POTASSIUM 3.4 mmol/L (3.5-5.1)
[2024-05-09 06:10] LABS: MAGNESIUM 1.8 mg/dL (1.8-2.4); PHOSPHORUS, INORGANIC 3.5 mg/dL (2.5-4.9)
--- NOTE | 2024-05-09 06:18 | OR ---
[facility] [address], [place] [address] Signed DATE OF OPERATION: 05/08/2024 SURGEON: Ben Damon MD PREOPERATIVE DIAGNOSIS: Left mons pubis, labial and inner thigh abscesses. POSTOPERATIVE DIAGNOSIS: Left mons pubis, labial and inner thigh abscesses. PROCEDURES: 1. Incision and drainage of abscesses x3. 2. Deep wound cultures. ESTIMATED BLOOD LOSS: None. FINDINGS: Heather had three abscesses as described above. The one in the mons pubis would be at least the size of a tennis ball, the one in the middle of the labia majora would be a size of a golf ball and the one on her upper inner thigh would be half the size of a golf ball. INDICATIONS: Heather is a 44-year-old obese diabetic female with a history of MRSA. She reminded me that I helped her with a gluteal abscess in the years gone by. At one point, she used to weigh over 500 pounds. She is now down to just over 200 pounds. She still has a lot of redundant skin particularly around her pannus in the inner thighs. She noticed for a couple of days that she was having pain and swelling in the left perineal area. It sounds like she spoke with someone in the emergency room who asked her to use some hot moist packs. It finally broke through, but it was certainly rather significant. She decided to come to the emergency room for evaluation. In the emergency room, she was not systemically ill or toxic. Her white count was elevated at 19.7. She has chronic renal insufficiency with a creatinine right around 2. Her initial Gram stain grew out gram-positive cocci in chains along with some white blood cells. Her urine also shows bacteria, blood and glucose and the urine culture is pending. Her initial lactic acid was 2.6. She has blood cultures pending. Her albumin is quite low at 0.9. A CT scan of abdomen and pelvis showed the abscesses and the inflammation in the left mons pubis up towards the left groin and the labia as well. I have been asked to see Heather as a local general surgeon on-call. She was admitted to the hospitalist service. She was Electronically Signed By: BEN DAMON MD 05/09/24 0618 PATIENT NAME: HEATHER KUO OPERATIVE REPORT DATE OF : 76 REPORT #: [id number] PHYSICIAN: BEN DAMON MD PCP: PRATEEK CHAPMAN MD REPORT IS CONFIDENTIAL AND NOT TO BE RELEASED WITHOUT AUTHORIZATION [facility] [address], [place] [address] Signed started on vancomycin and cefepime. Unfortunately, this morning when I came to see her, she was already eating her breakfast. Therefore, we waited till about 3 o'clock this afternoon to start her procedure. I explained to Heather the above findings and she reminded me that helped her with something similar a number of years ago. She understands the wound to be incised and drained and left open. We are going to pack each wound with Kerlix gauze soaked in full strength Dakin's solution. She will continue with antibiotics once this is under better control. We will be able to transition her to oral antibiotics in saline gauze packing. We will also use mupirocin ointment around the wounds. She understands there is risk to the surgery including, but not limited to bleeding, infection, scarring, change in contour of the skin as well as recurrent abscesses in the same or other locations. She understands expected intraop and postop course. She had expressed understanding and wished to proceed. DESCRIPTION OF PROCEDURE: Heather was taken into our operating room and placed in the supine position under general endotracheal tube anesthesia. Her legs were then moved into the [facility] with appropriate padding and Velcro strips. We initially washed her down with just hot moist washcloth. After this, she was prepped and draped in the usual sterile fashion with Betadine solution. We then used our cautery to debride all the skin in the three abscess cavities and we had to debride quite a bit of necrotic slimy and filmy tissue from each cavity. Fortunately, it did not travel too far. Once we were happy that all cavities were free, we washed them out with saline and then we washed them out with full strength Dakin's solution and then we used a 4-inch Kerlix gauze roll soaked in full strength Dakin's solution and we packed each wound and we cut the gauze to length. Dry fluffy gauze was applied over this along with some mesh underwear. Heather was taken of the [facility] and we transferred her over to her hospital bed. She was weaned from anesthesia, extubated in the OR, and taken to recovery in stable condition. Ben Damon MD ALB/MODL /[id number] cc: Prateek Chapman MD Electronically Signed By: BEN DAMON MD 05/09/24 0618 PATIENT NAME: HEATHER KUO OPERATIVE REPORT DATE OF : 76 REPORT #: [id number] PHYSICIAN: BEN DAMON MD PCP: PRATEEK CHAPMAN MD REPORT IS CONFIDENTIAL AND NOT TO BE RELEASED WITHOUT AUTHORIZATION [facility] [address], [place] [address] Signed DO Ben Crowder MD Patient Chart Copies: PRATEEK CHAPMAN MD, JAMES (TOMASA) BEN OCASIO MD ~ Electronically Signed By: BEN DAMON MD 05/09/24 0618 PATIENT NAME: HEATHER KUO OPERATIVE REPORT DATE OF : 76 REPORT #: [id number] PHYSICIAN: BEN DAMON MD PCP: PRATEEK CHAPMAN MD REPORT IS CONFIDENTIAL AND NOT TO BE RELEASED WITHOUT AUTHORIZATION
[2024-05-09] MEDS ORDERED: VANCOMYCIN HCL 1,750 MG in DEXTROSE 5% 500 ML IV SCH (06:30)
--- NOTE | 2024-05-09 06:38 | NUR ---
DR DAMON IN ROOM EXAMINING PT
--- NOTE | 2024-05-09 07:57 | NUR ---
TOOK PT BLOOD SUGAR AND CHARTED IT. PT DENIED ON GETTING UP IN THE CHAIR FOR BREAKFAST. PT DIDNT NEED ANYTHING ELSE AND CALL LIGHT IS WITHIN REACH.
[2024-05-09] MEDS ORDERED: POTASSIUM CHLORIDE 10 MEQ TABCR PO ONE (08:15)
--- NOTE | 2024-05-09 09:29 | NUR ---
UR CLINICAL REVIEW: [facility] INPT CRITERIA FOR CELLULITIS ODS [facility] 05/07/24 @ 1953 ORDER MATCHES REG RECORDS SENT TO [facility] FOR AUTH REVIEW DISCHARGE TO HOME WITH STABLE. ANTICIPATED IN 24-48 HRS 05/11/24
--- NOTE | 2024-05-09 11:00 | NUR ---
WOUND DRESSING/CARE COMPLETE - PACKING REMOVED MOIST WITH YELLOW DRAINAGE, NO FOUL SMELL PRESENT. REDNESS AND FIRMNESS IN SURROUNDING TISSUE NOT WORSENED FROM PREVIOUS REPORT. AREA CLEANED AND PACKED PER ORDERS. PT TOLERATED WITH MODERATE PAIN, DILAUDID ADMINISTERED PRIOR TO PERFORMING. ORAL TEMP ELEVATED THIS AM BUT NOT FEBRILE.
[2024-05-09] MEDS ORDERED: NYSTATIN OINTMENT 15GM TUBE TOP SCH (11:28)
--- NOTE | 2024-05-09 11:50 | NUR ---
PATIENT ALERT AND ORIENTED IN BED. STATES SHE CONTINUES TO LIVE IN APARTMENT WITH 3 FLIGHTS OF STAIRS. SHE HAS ISSUES WITH STAIRS AND LEAVES HER HOME RARELY. STATES SHE ONLY GETS OUT WHEN SHE HAS TO. STATES SHE HAS A CANE, NO OTHER DME. DOES NOT DRIVE. HER FRIEND ASSISTS TO POLICY ADVISER HER MEDICATIONS. SHE USES [facility] FOR MEDICAL APPOINTMENTS. SHE HAS SOME FINANCIAL HARDSHIP BUT GETS FOOD FROM THE [employer] AND USES [employer] TO DELIVER HER GROCERIES. SHE STATES SHE IS OK WITH DOING OUTPATIENT DRESSING CHANGES IN THE HOSPITAL IF NEEDED AND WILL USE [facility] [employer] TO GO TO THOSE APPOINTMENTS. DENIES OTHER CM NEEDS AT THE MOMENT.
--- NOTE | 2024-05-09 13:42 | NUR ---
VISITED PT DURING SPIRITUAL CARE ROUNDS. PT EXPRESSED ANXIETY, REQUESTED COLORING SUPPLIES MITIGATION STRATEGY, REQUESTED EUCHARIST TOMORROW. NUTRITION SPECIALIST PROVIDED SUPPORTIVE PRESENCE, ANXIETY CONTAINMENT, HOSPITALITY, PRAYER, SCHEDULED EUCHARIST FOR TOMORROW MORNING. PT EXPRESSED GRATITUDE.
--- NOTE | 2024-05-09 14:32 | NUR ---
PT RESTING IN BED WATCHING TV WITHOUT COMPLAINTS. STATES SHE DOES NOT FEEL THE URGE TO VOID. REQUESTING TO NAP. IV PATENT WITH ABX INFUSING.
--- NOTE | 2024-05-09 15:28 | NUR ---
PT NEEDED TO USE THE RESTROOM. USED THE BSC. PT ASKED IF WE CAN CHANGE HER GOWNED FOR A NEW ONE AND IT WAS CHANGED. PT DIDNT NEED ANYTHING ELSE AND CALL LIGHT IS WITHIN REACH.
[2024-05-09] MEDS ORDERED: HYDROmorphone HCL 1 MG/ML SYR IV PRN (17:00)
--- NOTE | 2024-05-09 17:31 | NUR ---
ADMINISTERED SCHEDULED MEDS AND PRN PAIN MED. PT ASKED FOR SODA AND JUICE, DID .
--- NOTE | 2024-05-09 19:46 | NUR ---
Patient was resting in bed. They reported being in pain. RN Mel was already in the room and did not need to be notified.
[2024-05-09] MEDS ORDERED: ACETAMINOPHEN 325 MG TAB PO SCH (20:00)
[2024-05-09] MEDS ORDERED: INSULIN GLARGINE-YFGN 100 UNIT/ML ML SUB-Q SCH (21:00)
--- NOTE | 2024-05-09 21:50 | NUR ---
MEDICATED WITH DILAUDID 0.5MG IV PRIOR TO DRESSING CHANGES PLUS SCHEDULED TYLENOL. COOPERATIVE WITH DRESSING CHANGES. TOLERATED FAIR. DRESSING PACKING REMOVED AND REPLACED PER ORDERS, FOUL SMELLING ODOR, SEROUS/BROWN COLORED DRAINAGE. DECREASED REDNESS PUBIC AREA AND RIGHT SIDED. REDNESS L GROIN NO CHANGES. PINK/RED UNDER BREASTS AND ABD PANNUS AREA PRESENT, MUCH IMPROVED. POWDER APPLIED, SCABS OVER ABD AND LE HEALING. SCDS IN PLACE. IVF INFUSING DIA. TOLERATING LIQUIDS WELL. NO N/V
--- NOTE | 2024-05-09 21:56 | NUR ---
Dressing change completed by GREG Leal. Patient was repositioned upwards in bed. Their phone fell on the floor and it was retrieved. Fresh ice water was given. No other cares were requested.
[2024-05-10] VITALS (10 sets, daily range): BP systolic 109–146; BP diastolic 59–115
--- NOTE | 2024-05-10 03:11 | NUR ---
RN Mel already in room assessing for pain. Assisted to BSC. IV restarted by RN. Patient repositioned upwards in bed.
--- NOTE | 2024-05-10 05:34 | NUR ---
AWAKE, COOP WITH LABS AND VITALS, C/O L GROIN AREA PAIN, MEDICATED WITH OXYCODONE 5MG PO. ON ROOM AIR, NO C/O DISTRESS. ivf INFUSING W/O PROBLEMS. PACKING/DRESSING TO L GROIN AND L UPPER HIP AREA IN PLACE, DECREASED REDNESS AND ERYTHEM OF SURROUNDING AREAS PRESENT. SCDS IN PLACE. TOLERATING LIQUIDS WELL, NO C/O N/V. DENIES NEED TO GET UP TO BSC SHE VOIDED LARGE AMOUNT OF URINE EARLIER
[2024-05-10 05:37] LABS: BASOPHILS 0.4 % (0-2); EOSINOPHILS 1.6 % (0-6); HEMATOCRIT 27.9 % (35.0-50.0); HEMOGLOBIN 9.4 g/dL (12.0-18.0); LYMPHOCYTES 12.8 % (24-44); MCH 28.4 (27-36); MCHC 33.6 g/dl (30-36); MCV 84.6 fl (81-99); MONOCYTES 6.3 % (0-12); NEUTROPHILS 78.9 % (39-80); PLATELET COUNT 370 K/uL (140-440); RDW 13.2 (10.5-15.0)
--- NOTE | 2024-05-10 05:42 | NUR ---
pt continues on COntact Isolation precautions
[2024-05-10 05:51] LABS: ANION GAP 14.5 (7-21); BUN/CREATININE RATIO 13.9 (6.0-28.6); CALCIUM 7.9 mg/dL (8.5-10.1); CREATININE, SERUM 1.87 mg/dL (0.55-1.02); POTASSIUM 3.5 mmol/L (3.5-5.1)
--- NOTE | 2024-05-10 06:19 | NUR ---
Awake but drowsy, watching tv, Dr Crooks in to examine pts wounds. decreae redness and erythem to pubic and both groing areas. packing dressing still in place x3. small amount of ss drainage noted on 4x4 fluffs. decreaed redness to light pink skin uner pannus area . scds in place, IVF infusing, no c/o advers reaction to IV abx
--- NOTE | 2024-05-10 06:30 | NUR ---
Patient reported being in pain, RN Mel was already in room. Fresh ice water was given. No other cares were requested.
--- NOTE | 2024-05-10 07:20 | NUR ---
VERBAL REPORT RECEIVED FROM GREG SOSA. PT RESTS IN BED, AWAKE AND ALERT. REQUESTS COFFEE, COFFEE, PROVIDED.
--- NOTE | 2024-05-10 09:03 | NUR ---
PATIENT IN BED AT THIS TIME. PHOTOGRAPHIC DOUBLE AND RN STUDENT CHARTED BLOOD SUGAR. CALL LIGHT WITHIN REACH, NO FURTHER NEEDS AT THIS TIME.
--- NOTE | 2024-05-10 10:19 | NUR ---
PATIENT IN BED, RN CHARTED VITALS AND MANUAL MACHINIST CHARTED I&O'S. CALL LIGHT WITHIN REACH, NO FURTHER NEEDS AT THIS TIME.
--- NOTE | 2024-05-10 11:21 | NUR ---
DRESSING CHANGE TO LEFT LABIA/MEDIAL THIGH WOUNDS X3 COMPLETE. OLD DRESSINGS REMOVED. DR. TORRES INTO SEE WOUNDS. WOUNDS CLEANSED WITH NS AND PATTED DRY. EACH WOUND FILLED WITH DAKIN'S MOISTENED GAUZE. MUPIROCIN OINTMENT APPLIED TO PERIWOUND SKIN/PERINEUM. DRESSINGS SECUED/COVERED WITH NEW BRIEF. PT TOLERATED WELL WITH DILAUDID AND OXYCODONE PRIOR TO PROCEDURE.
--- NOTE | 2024-05-10 12:14 | NUR ---
VISITED PT TO PROVIDE REQUESTED SACRAMENT. PT PARTICIPATED IN PRAYER, EXPRESSED GRATITUDE, PEACE. PHYSICIAN SUPPORT COORDINATOR PROVIDED SACRAMENT, SUPPORTIVE PRESENCE, PRAYER.
--- NOTE | 2024-05-10 12:27 | NUR ---
PATIENT IN BED, TRANSCRIPT EVALUATOR CHARTED BLOOD SUGAR AND DID HOURLY ROUNDS. CALL LIGHT WITHIN REACH, NO FURTHER NEEDS AT THIS TIME.
--- NOTE | 2024-05-10 13:00 | NUR ---
Spoke with Heather. Discussed her needs and pt feels she is unable to care for self and take care of her wounds. She also may need IV antibiotics on DC. Pt is willing to go to any SNF, but would prefer to stay in [place]. I was able to ask Tawnya from [facility] if they have beds open and they do. I will fax this pts chart today.
--- NOTE | 2024-05-10 14:19 | NUR ---
PATIENT IN BED AT THIS TIME. SLUNK SKIN CURER CHARTED VITALS AND I&O'S. CALL LIGHT WITHIN REACH, NO FURTHER NEED AT THIS TIME.
--- NOTE | 2024-05-10 14:30 | NUR ---
ATTEMPTED TO FLUSH THE PT'S IV WITH GINO TREATMENT PLANT OPERATOR. THE PT'S IV IS LEAKING AND TENDER AT THE INSERTION SITE. CHARGE NURSE NOTIFIED PT IS REQUESTING AN ULTRASOUND IV START. BED IN THE LOWEST POSITION, BED RAILS UP X3, CALL LIGHT PROVIDED.
--- NOTE | 2024-05-10 15:50 | NUR ---
PT RESTS IN BED ON CELL PHONE. NEW US START, IV INFUSION IN LEFT UPPER ARM, WNL, CALL LIGHT IN REACH, NO REQUESTS AT THIS TIME.
--- NOTE | 2024-05-10 17:19 | NUR ---
PT REQUESTS TO HAVE SCDS OFF FOR 1 HOURS. EDUCATION PROVIDED ON RISK OF DVT, PT VERBALIZES UNDERSTANDING. CONTINUES TO REQUEST SCD'S OFF. SCDS OFF OF NOW.
--- NOTE | 2024-05-10 17:58 | NUR ---
PATIENT SITTING UP IN BED WATCHING TV. VITALS AND IO'S DONE AND CHARTED. CALL LIGHT IN REACH. NO FURTHER NEEDS AT THIS TIME.
--- NOTE | 2024-05-10 18:39 | NUR ---
Face sheet, H&P, consult, surgery note,progress notes, labs, meds, imaging faxed to Tawnya at [facility]. Will ask in the AM if they would like pt to have PT/OT. Pt stating she is weak and needs help with walking.
--- NOTE | 2024-05-10 19:30 | NUR ---
REPORT RECIEVED FROM DAY SHIFT RN. PATIENT RESTING IN BED. DENIES NEEDS AT THIS TIME. CALL LIGHT IN REACH.
--- NOTE | 2024-05-10 21:52 | NUR ---
SCHEDULED MEDICATION ADMINISTERED. PATIENT HAS NO FURTHER NEEDS. CALL LIGHT IN REACH.
--- NOTE | 2024-05-10 22:49 | NUR ---
DRESSING CHANGE COMPLETED PER ORDER. PATIENT JOY WELL. PATIENT RESTING IN BED. SCDs IN PLACE. BAD ALARM ON FOR SAFETY. IV ABX INFUSING PER ORDER. PATIENT DENIES FURTHER NEEDS AT THIS TIME. CALL LIGHT IN REACH. FRESH WATER PROVIDED.
--- NOTE | 2024-05-10 23:59 | NUR ---
PATIENT RESTING IN BED WITH EYES CLOSED. RESPIRATIONS EVEN AND UNLABORED. CALL LIGHT IN REACH.
[2024-05-11] VITALS (10 sets, daily range): BP systolic 114–147; BP diastolic 66–87
--- NOTE | 2024-05-11 01:45 | NUR ---
VS OBTAINED AND RECORDED BY HOME SPECIALIST. NO FURTHER NEEDS AT THIS TIME. CALL LIGHT IN REACH.
--- NOTE | 2024-05-11 02:45 | NUR ---
SCHEDULED AND PRN PAIN MEDICATION ADMINISTERED. PATIENT DENIES FURTHER NEEDS. CALL LIGHT IN REACH. BED ALARM ON FOR SAFETY.
--- NOTE | 2024-05-11 04:45 | NUR ---
PATIENT RESTING IN BED ON BACK WITH EYES CLOSED. RESPIRATIONS EVEN AND UNLABORED. CALL LIGHT IN REACH.
[2024-05-11 05:54] LABS: BASOPHILS 0.5 % (0-2); LYMPHOCYTES 16.2 % (24-44); MCH 28.4 (27-36); MCHC 33.2 g/dl (30-36); MCV 85.4 fl (81-99); MONOCYTES 5.5 % (0-12); NEUTROPHILS 75.8 % (39-80); PLATELET COUNT 396 K/uL (140-440); RBC 3.16 M/ul (4.3-5.7); RDW 13.3 (10.5-15.0)
[2024-05-11 06:05] LABS: ANION GAP 13.4 (7-21); CALCIUM 7.9 mg/dL (8.5-10.1); CREATININE, SERUM 1.6 mg/dL (0.55-1.02); MAGNESIUM 1.7 mg/dL (1.8-2.4); POTASSIUM 3.4 mmol/L (3.5-5.1)
--- NOTE | 2024-05-11 06:21 | NUR ---
PATIENT RESTING IN BED. SCHEDULED ABX INFUSING PER ORDER. SCHEDULED MEDICATION ADMINSITERED PER ORDER. PATIENT HAS NO COMPLAINTS OF PAIN AT THIS TIME. NO FURTHER NEEDS. CALL LIGHT IN REACH.
--- NOTE | 2024-05-11 07:00 | NUR ---
REPORT RECEIVED FROM GREG RODRIGEZ. PT RESTING IN BED, NO NEEDS AT THIS TIME. CALL LIGHT AND PERSONAL BELONGINGS IN REACH.
[2024-05-11] MEDS ORDERED: MAGNESIUM SULFATE 2 GM/50 ML BAG IV ONE (07:30)
[2024-05-11] MEDS ORDERED: POTASSIUM CHLORIDE 10 MEQ TABCR PO ONE (08:00)
--- NOTE | 2024-05-11 08:15 | NUR ---
Received a call from Lilli at [facility], updated pt will most likely be ready for dc tomorrow. She will need IV antibiotics and wound care. Tawnya will contact [facility] for auth for placement. She states they will auth 20 days.
--- NOTE | 2024-05-11 09:15 | NUR ---
BREAKFAST TRAY REMOVED, PT HAS NO NEEDS AT THIS TIME. CALL LIGHT AND PERSONAL BELONGINGS IN REACH.
--- NOTE | 2024-05-11 10:23 | NUR ---
UR CONCURRENT REVIEW: [facility]- DOES NOT MEET GL DAY 2, VARIANCE COMPLETED. ODS [facility] INPT 05/07/24 @ 1953 PATIENT REMAINS IN NEED OF IV ABX AND PAIN MANAGEMENT. AWAITING FINAL WOUND CULTURES 05/13/24
[2024-05-11] MEDS ORDERED: SALINE LOCK FLUSH 5 ML SYR IV PRN (10:30)
--- NOTE | 2024-05-11 10:30 | NUR ---
PT BEING ASSISTED TO RECLINER BY PHYSICAL THERAPY. INITIAL ASSESSMENT COMPLETE. PT REPORTS L GROIN PAIN IS A 9/10, PRN PAIN MEDICATION ADMINISTERED PER MAR. PT LUNG SOUNDS CLEAR THROUGHOUT, ON ROOM AIR, HEART TONES HEARD WNL WITH TELE IN PLACE. PT BOWEL TONES ARE ACTIVE THROUGHOUT, TENDERNESS TO PALPATION IN L QUADRANT - PT REPORTS THIS IS D/T HAVING TO HAVE A BOWEL MOVEMENT. PT HAS BRIEF CURRENTLY IN PLACE, UNABLE TO VISUALIZE GROIN WOUNDS AT THIS TIME. REDNESS NOTED TO BENEATH PANNUS AND TO TOPS OF THIGHS. PT PULSES 2+ IN ALL EXTREMETIES, NO NUMBNESS OR TINGLING REPORTED, PT HAS 1+ PITTING EDEMA TO BILAT FEET. IV FLUSHES WNL. GREG MILLER FROM [facility] ARRIVES TO SET PT UP FOR PICC INSERTION. PT ASSISTED BACK TO BED TO PREP FOR THIS. BED LINENS CHANGED BY GREG DUPONT. NO OTHER NEEDS AT THIS TIME, CALL LIGHT IN REACH, ANGELA GARZA STILL PRESENT IN ROOM.
--- NOTE | 2024-05-11 11:04 | NUR ---
GREG MILLER IS IN THE ROOM AT THIS TIME AND WORKING ON GETTING A PICC LINE.
--- NOTE | 2024-05-11 11:11 | NUR ---
PT NOT AVAILABLE FOR VISIT. PROVIDED PRAYER.
--- NOTE | 2024-05-11 11:47 | NUR ---
PICC INSERTION NOTE: ASKED BY DR. DAMON TO EVALUATE PATIENT FOR POTENTIAL PICC LINE PLACEMENT FOR THE NEED OF SEVERAL WEEKS OF ANTIBIOTICS. AFTER REVIEWING THE CHART AND INTERVIEWING THE PATIENT, NO ABSOLUTE CONTRAINDICATIONS WERE IDENTIFIED. PATIENT WAS ABLE TO SIGN CONSENT FORM AND STATES SHE HAS HAD A PICC PREVIOUSLY IN THE RIGHT ARM. RIGHT ARM WAS EVALUATED FIRST USING SITE RITE U/S AND BOTH THE BASILIC AND THE CEPHALIC WERE EASILY IDENTIFIED. HOWEVER IT APPEARS THAT A PREVIOUS DISTAL IV SITE WAS BELOW WHERE THE BASILIC VEIN WAS, AND THIS VEIN WAS NOT COLLAPSABLE THE CEPHALIC, AND PATIENT ENDORSED THAT THAT AREA HURT A LITTLE BIT WHEN PRESSING ON IT. FOR THESE REASONS THE CEPHALIC WAS CHOOSEN. IT WAS ESTIMATED THAT A 4FR PICC WOULD CONSUME ONLY 38% OF THE VEIN DIAMETER. AFTER STERILLY PREPPING AND CLEANING PT'S ARM FOLLOWING [facility] RECOMMDNDATIONS FOR STERILE PROCEDURE, THE RIGHT CEPHALIC WAS EASILY ACCESSED AND CATHETER ADVANCED INTO VEIN. THERE WAS BRISK, DARK, NON PULSATILE BLOOD EASILY RETURNED. THIS WAS FOLLOWED BY INSERTING THE GUIDEWIRE, INTRODUCER, AND ULTIMATELY THE PICC LINE WITHOUT ANY DIFFICULTY. CHEST XRAY WAS TAKEN AFTER A STERILE DRESSING WAS PLACED. FIRST CXR SHOWED LINE TO BE DEEP, AND IT WAS PULLED BACK 3 CM, WHICH LEFT A TOTAL OF 4 CM EXPOSED. STERILE DRESSING APPLIED AGAIN AND NEW CXR TAKEN. THIS CXR SHOWED SATISFATORY PLACEMENT OF TIP IN DISTAL SVC. REPORT WAS GIVEN TO SUSANA, RNs CARING FOR HER. EDUCATION MATERIAL LEFT AT BEDSIDE.
--- NOTE | 2024-05-11 12:21 | NUR ---
DRESSING CHANGE PERFORMED. FORMER PACKING REMOVED FROM ALL THREE WOUNDS, PACKING HAS SEROSANGUINEOUS DRAINAGE. ROLLED GAUZE SOAKED IN DAKIN PACKED INTO EACH WOUND, MUPRICON APPLIED TO ALL THREE WOUND EDGES. GREG DUPONT CLEANSES BENEATH PTs PANNUS AND BREASTS, APPLIES NYSTATIN OINTMENT AND POWDER TO BENEATH PANNUS AND BOTH BREASTS. PT TOLERATES DRESSING CHANGE WELL WITH EXPLAINING CARES BEFORE EACH STEP. LEAH SOTO AND LEAH BRUNER REMAIN IN ROOM TO ASSIST PT IN APPLYING NEW BRIEF AND GETTING UP TO RECLINER FOR LUNCH. CNAs TO REMOVE TELE PER ORDERS. PT STATES NO FURTHER NEEDS AT THIS TIME.
[2024-05-11] MEDS ORDERED: SENNOSIDES 1 TAB PO SCH (13:30)
--- NOTE | 2024-05-11 13:40 | NUR ---
PT UP IN RECLINER WORKING ON LUNCH WHILE TALKING ON HER CELL PHONE. NO NEEDS AT THIS TIME, CALL LIGHT AND PERSONAL BELONGINGS IN REACH.
[2024-05-11] MEDS ORDERED: AMP/SULBACTAM SOD 3 GM in SODIUM CHLORIDE 0.9% 100 ML IV SCH (14:00)
[2024-05-11] MEDS ORDERED: CEFEPIME HCL/D5W 1 GM/100 ML PIGGYBACK IV SCH (14:00)
--- NOTE | 2024-05-11 14:30 | NUR ---
Spoke with Dr. Crooks and Dr. Milligan. Per [facility] pt may dc tomorrow. Cultures have returned and Dr. Milligan states pt will need Unasyn and wound care. Faxed PT/OT notes, med list, wound orders, progress note to Tawnya. She has not received auth at this time. She will let me know in the AM if they receive auth.
--- NOTE | 2024-05-11 15:50 | NUR ---
PT UP IN RECLINER SPEAKING ON HER PHONE. NO NEEDS AT THIS TIME, CALL LIGHT AND PERSONAL BELONGINGS IN REACH.
--- NOTE | 2024-05-11 16:09 | NUR ---
PT UP IN RECLINER. IV IN L AC FLUSHES WNL, INFUSING PT MEDICATION PER MAR. PICC LINE IN R UPPER ARM FLUSHES WNL, BRISK BLOOD RETURN NOTED. PT REPORTING L GROIN PAIN IS A 9/10, PRN PAIN MEDICATION ADMINISTERED. GREG DUPONT BRINGS PT ICED TEA PER REQUEST. NO OTHER NEEDS AT THIS TIME, CALL LIGHT AND PERSONAL BELONGINGS IN REACH.
--- NOTE | 2024-05-11 18:23 | NUR ---
PT REMAINS UP IN RECLINER TALKING ON HER PHONE. CALL LIGHT IN REACH.
--- NOTE | 2024-05-11 19:20 | NUR ---
REPORT RECIEVED FROM DAY SHIFT RN. PATIENT RESTING IN CHAIR WITH EYES CLOSED. RESPIRATIONS EVEN AND UNLABORED. CALL LIGHT IN REACH.
[2024-05-11] MEDS ORDERED: AMP/SULBACTAM SOD 3 GM VIAL IV ONE ×2 (20:15→20:16)
--- NOTE | 2024-05-11 20:15 | NUR ---
PATIENT RESTING IN CHAIR. SCHEDULED MEDICATION ADMINISTERED. VS AND I&Os OBTAINED AND RECORDED. NO FURTHER NEEDS. CALL LIGHT IN REACH.
[2024-05-11] MEDS ORDERED: DOXYCYCLINE HYCLATE 100 MG CAP PO SCH (21:00)
--- NOTE | 2024-05-11 21:07 | NUR ---
PATIENT RESTING IN BED. SS INSULIN ADMINISTERED PER ORDER. IV ABX INFUSING PER ORDER. PATIENT HAS NO FURTHER NEEDS. CALL LIGHT IN REACH.
--- NOTE | 2024-05-11 22:36 | NUR ---
PATIENT DRESSING CHANGE COMPLETE PER ORDER. UNDER PANNUS AND BREASTS WIPED WITH WIPES. NYSTATIN POWER AND FRESH TOWEL PLACED UNDER BREASTS AND PANNUS. PATIENT JOY WELL. PICC LINE FLUSHED WITH BLOOD RETURN. PICC LINE HEP-LOCKED. PATIENT HAS NO FURTHER NEEDS. SCDs IN PLACE. CALL LIGHT IN REACH.
[2024-05-12] VITALS (9 sets, daily range): BP systolic 127–144; BP diastolic 60–79
--- NOTE | 2024-05-12 00:52 | NUR ---
PATIENT RESTING IN BED ON BACK WITH EYES CLOSED. RESPIRATIONS EVEN AND UNLABORED. CALL LIGHT IN REACH.
--- NOTE | 2024-05-12 01:45 | NUR ---
PATIENT REPORTS 9/10 PAIN. PRN PAIN MEDICATION ADMINSITERED. IV ABX INFUSING PER ORDER. PATTIENT HAS NO FURTHER NEEDS. CALL LIGHT IN REACH.
--- NOTE | 2024-05-12 03:15 | NUR ---
PATIENT RESTING IN BED ON BACK WITH EYES CLOSED. RESPIRATIONS EVEN AND UNLABORED. CALL LIGHT IN REACH.
--- NOTE | 2024-05-12 05:40 | NUR ---
PATIENT RESTING IN BED. VS AND I&Os OBTAINED AND RECORDED. SCHEDULED MEDICATION ADMINISTERED PER PATIENT REQUEST. NO FURTHER NEEDS. CALL [facility] IN REACH.
[2024-05-12 05:43] LABS: BASOPHILS 0.6 % (0-2); EOSINOPHILS 1.8 % (0-6); HEMATOCRIT 25.1 % (35.0-50.0); HEMOGLOBIN 8.5 g/dL (12.0-18.0); LYMPHOCYTES 16.9 % (24-44); MCH 28.8 (27-36); MCHC 33.8 g/dl (30-36); MCV 85.1 fl (81-99); MONOCYTES 6.5 % (0-12); NEUTROPHILS 74.2 % (39-80); PLATELET COUNT 448 K/uL (140-440); RBC 2.94 M/ul (4.3-5.7); RDW 13.2 (10.5-15.0)
[2024-05-12 06:01] LABS: ANION GAP 15.1 (7-21); BUN/CREATININE RATIO 16.08 (6.0-28.6); CALCIUM 8.1 mg/dL (8.5-10.1); CREATININE, SERUM 1.43 mg/dL (0.55-1.02); POTASSIUM 4.1 mmol/L (3.5-5.1)
--- NOTE | 2024-05-12 07:07 | NUR ---
REPORT RECEIVED FROM WEAPONS SYSTEM INSTRUMENT MECHANIC RN RAIN. PATIENT IS LYING IN BED WITH EYES CLOSED AND RESPIRATIONS ARE EVEN AND UNLABORED. CALL LIGHT AND PERSONAL BELONGINGS ARE WITHIN REACH.
--- NOTE | 2024-05-12 08:51 | NUR ---
MORNING MEDICATIONS ADMINISTERED PER THE EMAR. PATIENT RATED PAIN A 9/10 ON THE LEFT SIDE OF THE GROIN. PRN OXYCODONE ADMINISTERED PER THE EMAR. PATIENT IS SAT UPRIGHT IN BED WITH HER BREAKFAST TRAY SET UP IN FRONT OF HER. PATIENT STATED NO FURTHER NEEDS AT THIS TIME. CALL LIGHT AND PERSONAL BELONGINGS ARE WITHIN REACH.
--- NOTE | 2024-05-12 09:25 | NUR ---
PATIENT IS LYING IN BED AT THIS TIME AND STATED "WAITING FOR THE PAIN MEDICATION TO KICK IN". RN EDUCATED PATIENT ON PEAK TIME OF THE MEDICATION. PATIENT EXPRESSED UNDERSTANDING. PATIENT BREAKFAST TRAY REMOVED AT THIS TIME. PATIENT STATED NO FURTHER NEEDS AT THIS TIME. CALL LIGHT AND PERSONAL BELONGINGS ARE WITHIN REACH.
[2024-05-12] MEDS ORDERED: POLYETHYLENE GLYCOL 3350 1 PACKET PO SCH (10:00)
--- NOTE | 2024-05-12 10:09 | NUR ---
RN and student nurse in room. Help was offered and declined.
--- NOTE | 2024-05-12 10:30 | NUR ---
MEDICATIONS ADMINISTERED PER THE EMAR. FULL ASSESSMENT COMPLETE AT THIS TIME. PATIENT IS ALERT AND ORIENTED TIMES FOUR. PATIENT IS ON ROOM AIR AND LUNG SOUNDS ARE CLEAR IN THE UPPER LOBES BILATERALLY AND DIMINISHED IN THE BASES BILATERALLY. CARDIAC WITH NORMAL S1 AND S2 ON AUSCULTATION. RADIAL PULSES ARE STRONG BILATERALLY. SENSATION INTACT WITH NO COMPLAINTS OF NUMBNESS AND TINGLING. PATIENT IS ON A 60 GRAM CARB DIET. LAST BM WAS 05/08/24. BOWEL TONES ARE ACTIVE IN ALL FOUR QUADRANTS. NO COMPLAINTS OF NAUSEA OR VOMITING. NO EDEMA NOTED. PICC LINE FLUSHED WITH 10 ML NORMAL SALINE AND THEN HEPARIN LOCKED. IV IN THE LEFT UPPER ARM FLUSHED WITH 10 ML NORMAL SALINE. UNASYN IS INFUSING AT 200 ML/HR. DRESSING CHANGE COMPLETE AT THIS TIME. PACKING IN PLACE WITH A NEW BRIEF. OLD PACKING WITH SEROSANGUINOUS DRAINAGE NOTED. PATIENT RATED PAIN 8/10 IN THE LEFT SIDE OF THE GROIN. PATIENT IS NOT REQUESTING ANYTHING FOR PAIN AT THIS TIME. PATIENT STATED NO FURTHER NEEDS AT THIS TIME. CALL LIGHT AND PERSONAL BELONGINGS ARE WITHIN REACH.
--- NOTE | 2024-05-12 11:58 | NUR ---
PATIENT IS LYING IN BED AND LEAH CARPIO IS IN THE ROOM AND GETTING A BLOOD SUGAR. PATIENT STATED NO NEEDS AT THIS TIME. CALL LIGHT AND PERSONAL BELONGINGS ARE WITHIN REACH.
[2024-05-12 12:35] LABS: BILIRUBIN, URINE NEGATIVE (negative); BLOOD/HGB, URINE MODERATE (Negative); KETONE, URINE NEGATIVE (Negative); LEUK ESTERASE, URINE SMALL (negative); NITRITE, URINE NEGATIVE (negative)
[2024-05-12 12:40] LABS: BACTERIA, URINE 2+ /hpf (negative); CRYSTALS, URINE NONE SEEN (0-1+); EPITHELIAL CELLS, URINE SQUAMOUS 3+ /lpf (0-1+)
[2024-05-12 12:41] LABS: CASTS, URINE GRANULAR 1+ \\lpf; REFLEX CULTURE, URINE No (No); WHITE BLOOD CELLS, URINE 41-50 /HPF (0-5)
--- NOTE | 2024-05-12 12:53 | NUR ---
PT in room.
--- NOTE | 2024-05-12 13:00 | NUR ---
Spoke with Heather. Let her know [facility] will accept her when they recieve auth from [facility]. Pt states she has not had a BM, she took medicine this am. Also in am report per Dr. Milligan, hgb decreased. No plan to dc until this stabilizes. I spoke with Tawnya from [facility] earlier, they have not received auth from [facility]. I let her know pt may not be able to dc tomorrow. I asked if they could accept an admit on the weekend and she feels this is possible. I will discuss more tomorrow with Tawnya.
--- NOTE | 2024-05-12 13:01 | NUR ---
PATIENT IS WORKING WITH PT AND OT AT THIS TIME.
--- NOTE | 2024-05-12 14:45 | NUR ---
1400 MEDICATIONS ADMINISTERED PER THE EMAR. PATIENT IS SITTIN GUPRIGHT IN THE CHAIR. PATIENT RATED PAIN 10/10. PRN OXYCODONE ADMINISTERED PER THE EMAR. INTAKE AND OUTPUT VALUES DOCUMENTED IN THE CHART. PICC LINE IN THE RIGHT UPPER ARM FLUSHED WITH 10 ML NORMAL SALINE. PICC DRESSING IS CLEAN, DRY, AND INTACT. PATIENT STATED NO FURTHER NEEDS AT THIS TIME. CALL LIGHT AND PERSONAL BELONGINGS ARE WITHIN REACH.
--- NOTE | 2024-05-12 15:11 | NUR ---
SHEARER SCREEN MEASURER AND TRIMMER REQUESTED PATIENT RECORDS @ 3939.
--- NOTE | 2024-05-12 15:21 | NUR ---
PATIENT IS SITTING UPRIGHT IN THE CHAIR WITH BILATERAL LOWER EXTREMITIES ELEVATED. PATIENT RATED PAIN 7/10 ON THE LEFT SIDE OF THE GROIN. PATIENT IS NOT REQUESTING PAIN MEDICATION AT THIS TIME. UNASYN 1400 DOSE COMPLETE. PICC FLUSHED WITH 10 ML NORMAL SALINE. BRISK BLOOD RETURN NOTED. PATIENT PICC LINE IS SALINE LOCKED. PICC DRESSING IS CLEAN, DRY, AND INTACT. PATIENT STATED NO FURTHER NEEDS AT THIS TIME. CALL LIGHT AND PERSONAL BELONGINGS ARE WITHIN REACH.
--- NOTE | 2024-05-12 16:08 | NUR ---
PATIENT IS LYING IN THE CHAIR WITH BILATERAL LOWER EXTREMITIES ELEVATED. PATIENT IS LOOKING ON THEIR PHONE. TV IS ON. PATIENT CALL LIGHT AND PERSONAL BELONGINGS ARE WITHIN REACH.
--- NOTE | 2024-05-12 17:54 | NUR ---
PATIENT CALLED AND SAID SHE IS HAVING A BLOODY NOSE. RN ASKED PATIENT IF ANYTHING IS IRRITATING HER NOSE RESULTING IN THE BLOODY NOSE STARTED. PATIENT STATED NO. PATIENT STATED "I WAS SITTING HERE EATING DINNER AND LOOKED DOWN AND THERE WAS BLOOD". PATIENT ALSO MENTIONED THIS WAS HER THIRD BLOODY NOSE TODAY. MD NOTIFIED. NO NEW ORDERS AT THIS TIME. CALL ENDED.
--- NOTE | 2024-05-12 18:46 | NUR ---
Patient called and reported having three nosebleeds today. GREG Garcia notified. Requested assistance to BSC. Once done patient returned to bed.
--- NOTE | 2024-05-12 19:29 | NUR ---
REPORT RECIEVED FROM DAY SHIFT RN. PATIENT RESING IN BED ON HER PHONE. NO NEEDS AT THIS TIME. CALL LIGHT IN REACH.
--- NOTE | 2024-05-12 20:00 | NUR ---
PATIENT RESTING IN BED. SCHEDULED MEDICATION ADMINISTERED PER ORDER. IV ABX INFUSING PER ORDER. PATIENT DENIES FURTHER NEEDS. CALL LIGHT IN REACH.
--- NOTE | 2024-05-12 21:26 | NUR ---
HAT MAKER CHECKED PT BLOOD SUGAR. BLOOD SUGAR IS 140. PRIMARY RN NOTIFED. VITALS AND I&O OBTAINED AND DOCUMENTED. PT STATES NO FURTHER NEEDS AT THIS TIME. CALL LIGHT WITHIN REACH.
--- NOTE | 2024-05-12 21:55 | NUR ---
SCHEDULED MEDICATION ADMINISTERED PER ORDER. NO FURTHER NEEDS. CALL LIGHT IN REACH.
--- NOTE | 2024-05-12 22:30 | NUR ---
PATIENT RESTING IN BED. DRESSING CHANGES COMPLETED PER ORDER. NEW BREIF IN PLACE. PATIENT JOY WELL. POWDER PLACED UNDER PANNUS AND BREASTS. PATIENT HAS NO FURTHER NEEDS. CALL LIGHT IN REACH.
[2024-05-13] VITALS (9 sets, daily range): BP systolic 122–140; BP diastolic 63–74
--- NOTE | 2024-05-13 00:12 | NUR ---
PATIENT RESTING IN BED ON RIGHT SIDE WITH EYES CLOSED. RESPIRATIONS EVEN AND UNLABORED. CALL LIGHT IN REACH.
--- NOTE | 2024-05-13 02:11 | NUR ---
SCHEDULED IV ABX INFUSING PER ORDER. PRN PAIN MEDICATION ADMINISTERED PER PATIENT REQUEST. NO FURTHER NEEDS. CALL LIGHT IN REACH.
[2024-05-13 05:37] LABS: BASOPHILS 0.3 % (0-2); EOSINOPHILS 2.1 % (0-6); HEMOGLOBIN 7.9 g/dL (12.0-18.0); LYMPHOCYTES 20.7 % (24-44); MCH 28.2 (27-36); MCHC 32.9 g/dl (30-36); MONOCYTES 6.1 % (0-12); NEUTROPHILS 70.8 % (39-80); PLATELET COUNT 426 K/uL (140-440); RBC 2.79 M/ul (4.3-5.7); RDW 13.3 (10.5-15.0)
--- NOTE | 2024-05-13 05:40 | NUR ---
PATIENT RESTING IN BED. SCHEDULED MEDICATION AND PRN PAIN MEDICATION ADMINISTERED PER PATIENT REQUEST. VS OBTAINED AND RECORDED. PATIENT HAS NO FURTHER NEEDS. CALL LIGHT IN REACH.
[2024-05-13 05:50] LABS: ANION GAP 13.8 (7-21); BUN/CREATININE RATIO 16.39 (6.0-28.6); CALCIUM 8.1 mg/dL (8.5-10.1); CREATININE, SERUM 1.22 mg/dL (0.55-1.02); MAGNESIUM 1.8 mg/dL (1.8-2.4); POTASSIUM 3.8 mmol/L (3.5-5.1)
--- NOTE | 2024-05-13 06:39 | NUR ---
PATIENT UP TO BSC TO VOID. PATIENT BACK TO BED. PATIENT HAS NO FURTHER NEEDS. CALL LIGHT IN REACH.
--- NOTE | 2024-05-13 07:47 | NUR ---
INR/PT drawn and sent to lab.
[2024-05-13 08:05] LABS: INR 1.1 (0.80-1.30); PROTIME 13.5 Sec (11.2-14.2)
--- NOTE | 2024-05-13 08:15 | NUR ---
PATIENT IN BED AT THIS TIME. MOTOR VEHICLE INSPECTOR WENT INTO PATIENTS ROOM FOR HOURLY ROUNDS. CALL LIGHT WITHIN REACH, NO FURTHER NEEDS AT THIS TIME.
[2024-05-13] MEDS ORDERED: Methylnaltrexone Bromide 12 MG/0.6 ML VIAL SUB-Q ONE (09:00)
--- NOTE | 2024-05-13 09:17 | NUR ---
Patient awake, alert and oriented x4, no acute distress. Scheduled morning medications admin at this time. Patient reports 5/10 labial pain. PICC line accessed, brisk blood return noted. Updated patient with plan of care, she is receptive to dressing change in a little while. Call light within reach.
--- NOTE | 2024-05-13 09:17 | NUR ---
NUTRITION NOTE FOR LENGTH OF STAY: PATIENT HAS BEEN IN-HOUSE X 7 DAYS. SHE IS ON A 60 GM CONS CARB DIET AND HAS A GOOD APPETITE, EATING 100% OF HER MEALS. SHE DRINKS MILK AND COFFEE. SHE IS EATING PROTEIN AT EACH MEAL AND MAKES A POINT TO DO SO. SHE IS CALLING THE KITCHEN TO ORDER HER OWN MEALS. NO PROBLEMS CHEWING OR SWALLOWING. SHE HAS QUESTIONS, COMPLAINS, OR CONCERNS ABOUT HER MEALS, THE MENU, OR HER DIET ORDER. PATIENT IS AT LOW NUTRITION RISK AT THIS TIME. RD TO FOLLOW UP PRN.
--- NOTE | 2024-05-13 09:43 | NUR ---
PATIENT IN BED AT THIS TIME. GAS PUMPING STATION HELPER CHARTED I&O'S, GREG GUTIERREZ STATED THAT SHE ONLY NEEDED AT TEMPURATURE. GAS PUMPING STATION HELPER CHARTED PATIENTS TEMP. CALL LIGHT WITHIN REACH, NO FURTHER NEEDS AT THIS TIME.
--- NOTE | 2024-05-13 09:54 | NUR ---
UR CONCURRENT REVIEW: [facility]- DOES NOT MEET GL DAY 2, VARIANCE COMPLETED. ODS EOCCO INPT 05/07/24 @ 1953 PATIENT REMAINS IN NEED OF IV ABX AND PAIN MANAGEMENT. TRENDING LABS DUE TO ANEMIA. PLAN TO DC TO SNF WHEN STABLE. 05/16/24
--- NOTE | 2024-05-13 10:08 | NUR ---
Patient sitting up on bedside commode having a bowel movement. Patient requesting privacy, she agrees to call staff when she is done. Call light within reach.
--- NOTE | 2024-05-13 10:43 | NUR ---
ADMIN OXYCODONE 10MG PO AT THIS TIME FOR REPORTS OF 6/10 GROIN PAIN. PATIENT SITTING UP IN CHAIR AT THIS TIME. PATIENT HAD LARGE BM WITH BLOOD NOTED IN STOOL. PT REPORTS SHE STRAINED "REALLY HARD" TO HAVE A BM. PATIENT HAS NO DISTRES AT THIS TIME, SNACK PROVIDED.
--- NOTE | 2024-05-13 11:23 | NUR ---
Patient in chair at this time. MOTOR TESTER assisted patient from bedside commode to chair. Patient stated that she had a bowel movement, MOTOR TESTER notified GREG luna that there was a blood clot when wiping patient and there was blood in patients urine. Call light within reach of patient, no further needs at this time.
--- NOTE | 2024-05-13 12:53 | NUR ---
Patient sitting up in chair eating lunch, no distress. Patient reports tolerable pain at this time. No needs, personal supplies and call light within reach.
--- NOTE | 2024-05-13 14:35 | NUR ---
TOOK OFF FOR RT ROUNDING PATIET HAS HAD NO NEED FOR RT INTERVENTION , NO LONGER HAVING CPOX , PRN STILL ON THE MAR
--- NOTE | 2024-05-13 14:36 | NUR ---
PATIENT ASSISTED BACK TO BED FOR DRESSING CHANGE. PATIENT REPORTS 8/10 GROIN PAIN. OXYCODONE 10MG PO AND SCHEDULED TYLENOL 650MG PO ADMIN AT THIS TIME.
--- NOTE | 2024-05-13 15:08 | NUR ---
Left perineum wounds cleansed and repacked per order. Patient tolerated dressing change well. LEAH Calvo in room during wound change.
--- NOTE | 2024-05-13 17:07 | NUR ---
ADMIN DILAUDID 0.5MG IV FOR REPORTS OF 7/10 GROIN PAIN.
--- NOTE | 2024-05-13 19:25 | NUR ---
RECEIVED REPORT FROM GREG GUTIERREZ. PT SOUND ASLEEP, APPEARS COMFORTABLE.
--- NOTE | 2024-05-13 21:00 | NUR ---
PT RESTING IN BED, REPORTS 8-9/10 [place] AREA PAIN. PT MEDICATED W/ PRN OXYCODONE IN PREP FOR DRSG CHANGE. VSS. USES CALL LIGHT APPROP. LSC DIM TO BASES. HRR. BTA, REPORTS BM TODAY. VOIDS WNL. RAC PICC LINE, DRSG CDI, FLUSHES AND DRAWS WELL. DIA CIRCUM 38-40CM, VERIFIED W/ POWER GRADER OPERATOR. PREV DOCUMENTED ARM CIRCUM 43 CM. LAC IV DIFF TO FLUSH. ANTI-FUNGAL POWDER APPLIED TO BREASTS AND PANNUS-MINIMAL REDNESS NOTED. 3 PACKED DRSGS TO LEFT LABIA AND LEFT GROIN. DRSG CHANGED-SOAP AND WATER CLEANSED. 3 WOUNDS W/ SLOUGH AND TUNNELING PACKED W/ DAKINS SOAKED KERLIX AND DRY GUAZE ON TOP HELD IN PLACE W/ DISPOSIBLE BRIEF. PT ABLE TO REPOSITION SELF W/ ENC AND TIME. BG ELEVATED, COVERED W/ SLIDING SCALE AND ROUTINE LANTUS. CALL LIGHT WITHIN REACH.
--- NOTE | 2024-05-13 22:45 | NUR ---
PT RESTING, EYES CLOSED. APPEARS COMFORTABLE. CALL LIGHT WITHIN REACH.
[2024-05-14] VITALS (7 sets, daily range): BP systolic 115–147; BP diastolic 62–86
--- NOTE | 2024-05-14 00:14 | NUR ---
PT RESTING W/ INT MOVEMENT OF EXTREMITIES, EYES CLOSED. CALL LIGHT WITHIN REACH.
--- NOTE | 2024-05-14 02:18 | NUR ---
PT RESTING, AWAKENS BRIEFLY WHEN IV ATB'S DISCONNECTED BUT RIGHT BACK TO SLEEP. CALL LIGHT WITHIN REACH.
--- NOTE | 2024-05-14 03:32 | NUR ---
PT SLEEPING ON RIGHT SIDE. CONTACT PRECAUTIONS IN PLACE. CALL LIGHT WITHIN REACH.
[2024-05-14 05:17] LABS: BASOPHILS 0.8 % (0-2); EOSINOPHILS 2.1 % (0-6); HEMATOCRIT 22.5 % (35.0-50.0); HEMOGLOBIN 7.7 g/dL (12.0-18.0); LYMPHOCYTES 24.9 % (24-44); MCH 28.7 (27-36); MCV 84.5 fl (81-99); MONOCYTES 5.9 % (0-12); NEUTROPHILS 66.3 % (39-80); PLATELET COUNT 454 K/uL (140-440); RBC 2.66 M/ul (4.3-5.7); RDW 13.5 (10.5-15.0)
--- NOTE | 2024-05-14 05:18 | NUR ---
PT AWAKE. LABS DRAWN FROM [facility]. PT REPORTS INCREASED PAIN TO LEFT LABIA/GROIN, PRN OXYCODONE ADMINISTERED PER EMAR. PACKING IN PLACE TO 3 WOUNDS IN M[place]YAM AREA. FRESH ICE WATER PROVIDED. CALL LIGHT WITHIN REACH.
[2024-05-14 05:26] LABS: ANION GAP 12.1 (7-21); BUN/CREATININE RATIO 16.66 (6.0-28.6); CALCIUM 8.1 mg/dL (8.5-10.1); CREATININE, SERUM 1.26 mg/dL (0.55-1.02); MAGNESIUM 1.6 mg/dL (1.8-2.4); POTASSIUM 4.1 mmol/L (3.5-5.1)
--- NOTE | 2024-05-14 06:19 | NUR ---
THIS CABIN WORKER AND CABIN WORKER NAVA ASKED PT IF SHE NEEDED TO USE THE BATHROOM OR IF SHE WANTED TO TRY. PT STATED THAT SHE DIDNT NEED TO GO AND WOULD TRY BEFORE BREAKFAST. PT STATED THAT SHE WAS IN PAIN AND DIDNT WANT TO SIT ON THE BSC IF SHE DIDNT NEED TO GO. PRIMARY RN NOTIFED.
--- NOTE | 2024-05-14 06:55 | NUR ---
CALL LIGHT ANSWERED. PT NEEDED TO USE BATHROOM. THIS LEAH AND LEAH VICK ASSISTED PT TO BSC. PT ASKED FOR PRIVACY. LOAN COUNSELOR GAVE PT CALL LIGHT AND INSTRUCTED PT TO CALL WHEN FINISHED.
--- NOTE | 2024-05-14 07:08 | NUR ---
CALL LIGHT ANSWERED. PT DONE ON BSC. THIS HEALTHCARE MANAGER AND LEAH VICK ASSISTED PT WITH CLEANING. PT ASSISTED FROM BSC TO CHAIR. OUTPUT MEASURED AND DOCUMENTED. HEALTHCARE MANAGER NOTED THAT ONE OF PT WOUND PACKINGS HAD COME OUT. PRIMARY RN NOTIFED. PT STATES NO FURTHER NEEDS AT THIS TIME. CALL LIGHT WITHIN REACH.
--- NOTE | 2024-05-14 07:51 | NUR ---
Patient awake, alert and oriented x3, no acute distress. Patient reports she slept well last night. Breakfast to patient. Patient reports she will shower later today with staff assist. No current needs, presonal supplies and call light within reach.
[2024-05-14] MEDS ORDERED: MAGNESIUM SULFATE 2 GM/50 ML BAG IV SCH (09:00)
--- NOTE | 2024-05-14 12:32 | NUR ---
Patient requested her salad in from the fridge, salad was given.
--- NOTE | 2024-05-14 14:25 | NUR ---
Oxycodone 10mg po admin at this time for reports of 6/10 left groin pain.
--- NOTE | 2024-05-14 16:00 | NUR ---
PATIENT TOOK A SHOWER. INDEPENDENT. BED LINENS CHANGED. NEW GOWN AND SOCKS. PATIENT IS BACK IN BED WATCHING TV. WAITING FOR HER DINNER. BLOOD SUGAR CHECKS DONE FOR ALL THREE MEALS.
--- NOTE | 2024-05-14 17:11 | NUR ---
Left perineum wounds cleansed and repacked per provider order. Patient tolerated well.
--- NOTE | 2024-05-14 19:27 | NUR ---
RECEIVED REPORT FROM CANDELARIO RN'S. PT AWAKE, REPORTS MIRYAM AREA PAIN. WILL MEDICATE PER EMAR. PT REPORTS NOT WANTING TO BE DOCUMENTED "REFUSING" DRSG CHANGE TONIGHT BUT IS NOT INTERESTED IN DOING IT TONIGHT AND WOULD PREFER TO WAIT UNTIL AM. PT INSTRUCTED TO LET RN KNOW WHEN SHE IS READY FOR DRSG CHANGE.
--- NOTE | 2024-05-14 19:45 | NUR ---
PT RESTING IN BED. VSS. REPORTS PAIN TO LEFT LABIA/GROIN, MEDICATED W/ PRN OXYCODONE PER EMAR. LSC DIM TO BASES. HRR. BTA, LBM 05/13. VOIDS WNL. DIA PICC DRSG CDI, ARM CIRCUM 40CM. SINGLE LUMEN W/ BLOOD RETURN AND HEP LOCKED AFTER IV ATB INFUSION. RASH TO BILAT BREASTS AND PANNUS-CLEANSED AND ANTI FUNGAL POWDER APPLIED. BLE W/ SCATTERED ABRASIONS. PT DID NOT ALLOW THIS RN TO ASSESS TO MIRYAM WOUNDS/DRSGS AT THIS TIME R/T PAIN. CONTACT PRECAUTIONS IN PLACE FOR MRSA. CALL LIGHT WITHIN REACH. FRESH ICE WATER PROVIDED.
--- NOTE | 2024-05-14 22:38 | NUR ---
PT SLEEPING SOUNDLY-APPEARS COMFORTABLE. CALL LIGHT WITHIN REACH.
[2024-05-15] VITALS (9 sets, daily range): BP systolic 140–151; BP diastolic 58–80
--- NOTE | 2024-05-15 01:22 | NUR ---
PT SLEEPING SOUNDLY ON RIGHT SIDE. APPEARS COMFORTABLE. CALL LIGHT WITHIN REACH.
--- NOTE | 2024-05-15 03:03 | NUR ---
pt sound asleep. appears comfortable.
--- NOTE | 2024-05-15 04:05 | NUR ---
PT SLEEPING SOUNDLY. APPEARS COMFORTABLE. CALL LIGHT WITHIN REACH.
--- NOTE | 2024-05-15 05:01 | NUR ---
PT UP TO BSC W/ SBA. PT REPORTS XL BM. OFFERED DRSG CHANGE TO MIRYAM AREA WOUNDS AT THIS TIME, PT DECLINED FOR NOW. PT STATED WILL CALL FOR DRSG CHANGE WHEN READY. CALL LIGHT WITHIN REACH.
--- NOTE | 2024-05-15 05:39 | NUR ---
PT CALLED READY FOR DRSG CHANGE TO LEFT LABIA & GROIN. 3 WOUNDS W/ SCANT SEROSANG DRNG. PACKING REMOVED, WOUNDS CLEANSED W/ SOAP AND WATER. DAKINS SOAKED KERLIX PACKED INTO ALL 3 WOUNDS. MUPIROCIN APPLIED. DRY GUAZE ON TOP HELD IN PLACE W/ DISPOSIBLE BRIEF. PT MED W/ PRN OXYCODONE FOR PAIN. LABS DRAWN FROM DIA PICC LINE W/O DIFFICULTY. CALL LIGHT WITHIN REACH.
[2024-05-15 05:40] LABS: BASOPHILS 0.7 % (0-2); EOSINOPHILS 2.5 % (0-6); HEMATOCRIT 33.9 % (35.0-50.0); HEMOGLOBIN 11.4 g/dL (12.0-18.0); LYMPHOCYTES 27.3 % (24-44); MCHC 33.6 g/dl (30-36); MCV 86.2 fl (81-99); MONOCYTES 4.5 % (0-12); PLATELET COUNT 394 K/uL (140-440); RBC 3.94 M/ul (4.3-5.7); RDW 13.7 (10.5-15.0)
[2024-05-15 05:51] LABS: ANION GAP 12.7 (7-21); BUN/CREATININE RATIO 19.67 (6.0-28.6); CALCIUM 8.4 mg/dL (8.5-10.1); CREATININE, SERUM 1.22 mg/dL (0.55-1.02); MAGNESIUM 2.1 mg/dL (1.8-2.4); POTASSIUM 4.7 mmol/L (3.5-5.1)
--- NOTE | 2024-05-15 07:32 | NUR ---
PT RESTING EYES CLOSED AT TIME OF SHIFT REPORT CALL LIGHT AND NEEDED ITEMS IN REACH. CHART REVIEWED. PT CONTINUES RESTING EYES CLOSED AT THIS TIME. FRESH H20 TO BEDSIDE INFO BOARD UPDATED
--- NOTE | 2024-05-15 07:41 | NUR ---
THIS NURSE WORKING DISK SANDER. INTO GET PATIENTS BLOOD SUGAR. READING WAS 152 WILL BE REPORTED TO PATIENTS NURSE. PATIENT DENIES ANY OTHER NEEDS AT THIS TIME.
--- NOTE | 2024-05-15 09:08 | NUR ---
PT SITTING UP IN BED WATCHING TV EATING MORNING MEAL. NO C/O DISCOMFORT DENIES NEEDS AT THIS TIME.
--- NOTE | 2024-05-15 09:53 | NUR ---
WORKING UMBRELLA MENDER. PATIENT IS LOOKING AT MENU TO ORDER BREAKFAST AND THEN SHE WANTS TO REST. DENIES ANY CARES AT THIS TIME. PATIENT HAS FLUIDS AT BEDSIDE.
--- NOTE | 2024-05-15 10:28 | NUR ---
PT REPORTS NOT SLEEPING ON NOC SHIFT APPEARS TO BE SLEEPING SOUNDLY AT THIS TIME. FRESH H20 TO BEDSIDE CALL LIGHT IN REACH
--- NOTE | 2024-05-15 11:29 | NUR ---
WORKING SUPERVISOR FRONT, PATIENT RESTING BUT OPENS EYE WHEN GOING IN. BLOOD SUGAR DONE. PATIENT LIKES TO POKE HER OWN FINGER. PATIENT DENIES ANY CARES AT THIS TIME. SHE WOULD LIKE LIGHTS OFF TO REST. SAYS SHE SLEEPS BETTER DURING THE DAY THEN AT NIGHT.
--- NOTE | 2024-05-15 11:45 | NUR ---
PT RESTING IN BED WATCHING TV NO C/O DISCOMFORT OR REQUESTS
--- NOTE | 2024-05-15 12:47 | NUR ---
WORKING CONSTRUCTION PROJECT MGR, PATIENT EATING LUNCH ON HER BED BETWEEN HER LEGS. PATIENT WAS REFUSING PT AND AFTER TALKING EDUATING AND MOTIVATION TALKING PATIENT DOES NOT WANT ANYBODY TO INTERUPT HER LUNCH. PATIENT ALSO REFUSED PT EARLIER. SHE WAS ADVISED SHE WOULD STAY TELL PATIENT WAS DONE BUT SHE REFUSED.
--- NOTE | 2024-05-15 13:47 | NUR ---
SBA TO THE TOILET THEN TO THE RECLINER TO SIT UP FOR AWHILE. PT STATES SHE REFUSED P/T TODAY BUT IS NOW DOING HER OWN P/T. PT IS SLOW BUT STEADY ON HER FEET, USING CANE. CALL LIGHT AND NEEDED ITEMS IN REACH
--- NOTE | 2024-05-15 14:20 | NUR ---
PT SITTING UP IN CHAIR, PRESENT. VS STABLE, I&OS CHARTED. PT DENIES ANY NEEDS. REQUESTING A SODA, WHICH WAS PROVIDED. ALL PT CARE NEEDS MET, CALL LIGHT WITHIN REACH.
--- NOTE | 2024-05-15 14:34 | NUR ---
PT RESTING IN BED FAMILY PRESENT IN THE ROOM. K+ LAB RESULTS ARE UP LAST DRAW. REPORTED TO PT. SHE DENIES NEED OF ANYTHING AT THIS TIME
--- NOTE | 2024-05-15 14:58 | NUR ---
DR LOUISE IN TO SEE PT, HER IS PRESENT. PLAN GOING FORWARD DISCUSSED ALL QUESTIONS ANSWERED
--- NOTE | 2024-05-15 21:38 | NUR ---
Pt on contact isolation
--- NOTE | 2024-05-15 22:42 | NUR ---
Pt resting, no s/sx distress
--- NOTE | 2024-05-15 23:51 | NUR ---
uP TO bsc, VOIDED LARGE AMOUNT OF URINE MIXED WITH FORMED MEDIUM SIZED BM. 1PA. BACK TO BED WITH MINIMUM OF ASSIST, EFFORTS PRAISED, PACKING TO L GROIN AREA IN PLACE. SCDS IN PLACE, REPOSITIONS SELF IN BED
--- NOTE | 2024-05-16 02:02 | NUR ---
resting eyes closed, no s/sx distress, scds in place, dressing L groing in place
--- NOTE | 2024-05-16 02:37 | NUR ---
c/o 9/10 L groin /wound area pain. medicated with scheduled Tylenol and Oxycodone 10mg po. sitting up in bed, scds off at this time at her request
--- NOTE | 2024-05-16 04:11 | NUR ---
Pt was medicated earlier prior to dressing hcanges, c/o being too drowsy, declines to have dressing changes at this time "Can we do it later", will try to do dressing chnages later. turns and repositions self in bed
[2024-05-16 05:26] LABS: EOSINOPHILS 2.4 % (0-6); HEMATOCRIT 22.4 % (35.0-50.0); HEMOGLOBIN 7.5 g/dL (12.0-18.0); LYMPHOCYTES 29.9 % (24-44); MCH 28.5 (27-36); MCHC 33.5 g/dl (30-36); MONOCYTES 5.8 % (0-12); NEUTROPHILS 60.9 % (39-80); PLATELET COUNT 468 K/uL (140-440); RBC 2.63 M/ul (4.3-5.7); RDW 13.4 (10.5-15.0)
[2024-05-16 05:36] LABS: ANION GAP 12.8 (7-21); BUN/CREATININE RATIO 22.88 (6.0-28.6); CALCIUM 8.6 mg/dL (8.5-10.1); CREATININE, SERUM 1.18 mg/dL (0.55-1.02); POTASSIUM 4.8 mmol/L (3.5-5.1)
[2024-05-16 06:14] VITALS: BP 133/57
--- NOTE | 2024-05-16 07:23 | NUR ---
PT RESTING EYES CLOSED AT TIME OF SHIFT REPORT, LEFT UNDISTURBED. FRESH H20 TO BEDSIDE CALL LIGHT IN REACH
--- NOTE | 2024-05-16 09:07 | NUR ---
PT IS SITTING UP ON EDGE OF BED EATING MORNING MEAL. NO C/O PAIN OR DISCOMFORT DENIES NEED OF ANYTHING FURTHER AT THIS TIME
--- NOTE | 2024-05-16 09:30 | NUR ---
Spoke with Heather, she is now stating she is not happy to go to [facility]. Discussed she had requested to stay in town. Plan is for her to dc at 10:30 per [facility]. I have scheduled her a fu appt. with Dr. Crooks for tomorrow as he wanted to see her 7-10 days from her surgery. This is a holiday week and where they could fit her in. Pt is not happy with this appt. I let her know she can cancel and reschedule. I also set up [facility] transport for tomorrow for a round trip in case pt could not organize transport. Pt also scheduled for a pcp appt with her pcp.
[2024-05-16 10:10] VITALS: BP 133/57
[2024-05-16] MEDS ORDERED: DOXYCYCLINE HY100 MG PO (10:13)
[2024-05-16] MEDS ORDERED: AMOX TR-K CLV1 EAC1 PO (10:14)
[2024-05-16] MEDS ORDERED: LEVOTHYROXINE25 MCG PO (10:15)
[2024-05-16] MEDS ORDERED: OXYCODONE HCL5 MG PO (10:16)
[2024-05-16] MEDS ORDERED: ADMELOG100 UNIT/1 SUB-Q (10:19)
[2024-05-16 10:25] VITALS: BP 154/95
--- NOTE | 2024-05-16 10:31 | NUR ---
DISCHARGE ORDERS COMPLETED AND FAXED TO [facility]
== END 2024-05-16 10:41 | DRG 758 ==
LOC: ED 17:16 → MS 19:53
PROVIDERS: Colon & Rectal Surgery; Emergency Medicine; Student in an Organized Health Care Education/Training Program; ADMIT Student in an Organized Health Care Education/Training Program; ATTEND Family Medicine
PROC: 0HD9XZZ Extraction of Perineum Skin, External Approach (ICD-10-PCS; 2024-05-08)
PROC: 0HDNXZZ Extraction of Left Foot Skin, External Approach (ICD-10-PCS; 2024-05-08)
PROC: 0HDAXZZ Extraction of Inguinal Skin, External Approach (ICD-10-PCS; principal; 2024-05-08 15:00)
PROC: 02HV33Z Insertion of Infusion Device into Superior Vena Cava, Percutaneous Approach (ICD-10-PCS; 2024-05-11)
DX: N76.4 Abscess of vulva (principal); I96 Gangrene, not elsewhere classified; L02.215 Cutaneous abscess of perineum; N17.9 Acute kidney failure, unspecified; N39.0 Urinary tract infection, site not specified; L02.416 Cutaneous abscess of left lower limb; Z68.41 Body mass index [BMI] 40.0-44.9, adult; K59.00 Constipation, unspecified; E03.9 Hypothyroidism, unspecified; E78.5 Hyperlipidemia, unspecified; I25.10 Atherosclerotic heart disease of native coronary artery without angina pectoris; J45.909 Unspecified asthma, uncomplicated; D64.9 Anemia, unspecified; E11.40 Type 2 diabetes mellitus with diabetic neuropathy, unspecified; F17.200 Nicotine dependence, unspecified, uncomplicated; B96.20 Unspecified Escherichia coli [E. coli] as the cause of diseases classified elsewhere; B95.4 Other streptococcus as the cause of diseases classified elsewhere; E66.9 Obesity, unspecified; Z91.040 Latex allergy status; Z88.8 Allergy status to other drugs, medicaments and biological substances; Z86.14 Personal history of Methicillin resistant Staphylococcus aureus infection; I25.2 Old myocardial infarction; Z95.5 Presence of coronary angioplasty implant and graft; Z79.02 Long term (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 of antithrombotics/antiplatelets
CPT/HCPCS: 00400; 36415; 36569; 36592; 71045; 74176; 80048; 80053; 81001; 83605; 83615; 83735; 84100; 85025; 85610; 85730; 86140; 87040; 87070; 87077; 87088; 87186; 87205; 93005; 93010; 94760; 94762; 97161; 97166; 97530; 97535; A9270; C1751; J0131; J0295; J0330; J0692; J0878; J1171; J1650; J1815; J2003; J2212; J2250; J2405; J2704; J3010; J3370; J3475; J3480; J3490; J7030; J7060; J7121

== ENCOUNTER 2024-06-02 21:29 | Emergency (ER) | payer OTHER ==
[~2024-06-02] VITALS: Ht 167.6 cm; Wt 147.0 kg
[~2024-06-02 21:29] MED LIST changes: +ADMELOG100 UNIT/1 SUB-Q; +AMOX TR-K CLV1 EAC1 PO; +INSULIN GL100 UNIT/2 SUB-Q; +LEVOTHYROXINE25 MCG PO; +OXYCODONE HCL5 MG PO; -SEVOFLURANE 250 ML BTL INH ONE
[2024-06-02 22:23] LABS: BASOPHILS 0.6 % (0-2); EOSINOPHILS 1.3 % (0-6); HEMATOCRIT 27.9 % (35.0-50.0); HEMOGLOBIN 9.3 g/dL (12.0-18.0); LYMPHOCYTES 23.5 % (24-44); MCH 28.3 (27-36); MCHC 33.2 g/dl (30-36); MCV 85.3 fl (81-99); MONOCYTES 10.1 % (0-12); NEUTROPHILS 64.5 % (39-80); PLATELET COUNT 283 K/uL (140-440); RBC 3.27 M/ul (4.3-5.7)
[2024-06-02 22:39] LABS: INFLUENZA B NAA NEGATIVE (NEGATIVE); RESPIRATORY SYNCYTIAL VIR NAA NEGATIVE (NEGATIVE)
[2024-06-02 22:44] LABS: ALBUMIN 1.5 g/dL (3.4-5.0); ALBUMIN/GLOBULIN RATIO 0.31 (1.1-2.4); BILIRUBIN, TOTAL 0.6 ng/dL (0.2-1.0); BUN/CREATININE RATIO 18.04 (6.0-28.6); CALCIUM 8.2 mg/dL (8.5-10.1); CREATININE, SERUM 1.33 mg/dL (0.55-1.02); PROTEIN, TOTAL 6.4 g/dL (6.4-8.2)
[2024-06-02] MEDS ORDERED: FUROSEMIDE 40 MG TAB PO ONE (23:45)
[2024-06-03] MEDS ORDERED: LASIX40 MG PO (00:20)
[2024-06-03 01:00] VITALS: BP 150/77
== END 2024-06-03 01:00 | disposition home or self-care (01) ==
LOC: ED 21:29
PROVIDERS: Family Medicine
DX: I11.0 Hypertensive heart disease with heart failure (principal); I50.9 Heart failure, unspecified; E11.9 Type 2 diabetes mellitus without complications; E66.9 Obesity, unspecified; I25.10 Atherosclerotic heart disease of native coronary artery without angina pectoris; I25.2 Old myocardial infarction; F17.290 Nicotine dependence, other tobacco product, uncomplicated; Z86.73 Personal history of transient ischemic attack (TIA), and cerebral infarction without residual deficits; Z95.5 Presence of coronary angioplasty implant and graft; Z91.018 Allergy to other foods; Z91.040 Latex allergy status; Z88.8 Allergy status to other drugs, medicaments and biological substances; Z79.890 Hormone replacement therapy; Z79.4 Long term (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; Z79.899 Other long term (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; Z11.52 Encounter for screening for COVID-19
CPT/HCPCS: 36415; 71045; 80053; 83880; 85025; 87502; 99285-25; U0002

== ENCOUNTER 2024-06-04 14:45 | Emergency (ER) | payer OTHER ==
[~2024-06-04] VITALS: Ht 167.6 cm; Wt 147.2 kg
[~2024-06-04 14:45] MED LIST changes: +LASIX40 MG PO
[2024-06-04] MEDS ORDERED: FUROSEMIDE 40 MG/4 ML VIAL IV ONE (15:15)
[2024-06-04] MEDS ORDERED: ALBUTEROL/IPRATROPIUM 3 ML NEB INH ONE (15:15)
[2024-06-04] MEDS ORDERED: methylPREDNISolone SOD SUCC 125 MG/2 ML VIAL IV ONE (15:30)
[2024-06-04 15:39] LABS: BASOPHILS 0.6 % (0-2); EOSINOPHILS 3.4 % (0-6); HEMOGLOBIN 10.2 g/dL (12.0-18.0); LYMPHOCYTES 25.7 % (24-44); MCH 28.9 (27-36); MONOCYTES 7.6 % (0-12); NEUTROPHILS 62.7 % (39-80); PLATELET COUNT 298 K/uL (140-440); RBC 3.53 M/ul (4.3-5.7); RDW 14.9 (10.5-15.0)
[2024-06-04 16:01] LABS: ALBUMIN 1.6 g/dL (3.4-5.0); ALBUMIN/GLOBULIN RATIO 0.31 (1.1-2.4); ANION GAP 12.1 (7-21); BILIRUBIN, TOTAL 0.7 ng/dL (0.2-1.0); BUN/CREATININE RATIO 13.86 (6.0-28.6); CALCIUM 8.2 mg/dL (8.5-10.1); CREATININE, SERUM 1.37 mg/dL (0.55-1.02); POTASSIUM 4.1 mmol/L (3.5-5.1); PROTEIN, TOTAL 6.7 g/dL (6.4-8.2)
[2024-06-04 16:05] LABS: INFLUENZA B NAA NEGATIVE (NEGATIVE); RESPIRATORY SYNCYTIAL VIR NAA NEGATIVE (NEGATIVE)
[2024-06-04 20:19] VITALS: BP 144/84
--- NOTE | 2024-06-05 21:00 | EKG ---
[facility] [address] [facility] [place] [address] Signed Normal sinus rhythm Low voltage QRS Borderline ECG When compared with ECG of 08-MAY-2024 09:04, No significant change was found Confirmed by Orlin Wade MD ([id number]) on 06/05/2024 8:59:52 PM Electronically Signed By: ORLIN WADE DO 06/05/24 2100 PATIENT NAME: WILBERT KUO SABINO Electrocardiogram DATE OF : 76 PHYSICIAN: ORLIN WADE DO REPORT #: [id number] REPORT IS CONFIDENTIAL AND NOT TO BE RELEASED WITHOUT AUTHORIZATION
== END 2024-06-04 20:19 | disposition home or self-care (01) ==
LOC: ED 14:45
PROVIDERS: Emergency Medicine
DX: J44.1 Chronic obstructive pulmonary disease with (acute) exacerbation (principal); I11.0 Hypertensive heart disease with heart failure; I50.9 Heart failure, unspecified; R09.02 Hypoxemia; I25.10 Atherosclerotic heart disease of native coronary artery without angina pectoris; I25.2 Old myocardial infarction; E66.01 Morbid (severe) obesity due to excess calories; Z68.43 Body mass index [BMI] 50.0-59.9, adult; Z86.73 Personal history of transient ischemic attack (TIA), and cerebral infarction without residual deficits; Z95.5 Presence of coronary angioplasty implant and graft; Z91.018 Allergy to other foods; Z91.040 Latex allergy status; Z88.8 Allergy status to other drugs, medicaments and biological substances; Z79.890 Hormone replacement therapy; Z79.4 Long term (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; Z79.01 Long term (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 of anticoagulants; Z79.899 Other long term (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
CPT/HCPCS: 36415; 71045; 80053; 83880; 84484; 85025; 87502; 93005; 93010; 94640; 94761; 96374; 96375; 99285-25; J1940; J2919; U0002

== ENCOUNTER 2024-07-13 12:15 | Inpatient (IN) | payer OTHER ==
[~2024-07-13] VITALS: Ht 167.6 cm; Wt 126.3 kg
[2024-07-13 12:38] LABS: BASOPHILS 0.5 % (0-2); EOSINOPHILS 3.3 % (0-6); HEMATOCRIT 30.3 % (35.0-50.0); HEMOGLOBIN 10.2 g/dL (12.0-18.0); LYMPHOCYTES 21.8 % (24-44); MCH 27.6 (27-36); MCHC 33.7 g/dl (30-36); MCV 81.9 fl (81-99); MONOCYTES 4.8 % (0-12); NEUTROPHILS 69.6 % (39-80); PLATELET COUNT 423 K/uL (140-440); RDW 14.6 (10.5-15.0)
[2024-07-13] MEDS ORDERED: INSULIN LI100 UNIT/2 SUB-Q (12:41)
[2024-07-13] MEDS ORDERED: FUROSEMIDE20 MG PO (12:41)
[2024-07-13] MEDS ORDERED: CEFEPIME HCL/D5W 2 GM/100 ML PIGGYBACK IV ONE (12:45)
[2024-07-13] MEDS ORDERED: SODIUM CHLORIDE 0.9% 1,000 ML IV ONE (12:45)
[2024-07-13] MEDS ORDERED: DAPTOmycin 500 MG/10 ML VIAL IV ONE ×2 (12:45→13:00)
[2024-07-13 12:47] LABS: ALBUMIN 1.2 g/dL (3.4-5.0); ALBUMIN/GLOBULIN RATIO 0.24 (1.1-2.4); ANION GAP 10.8 (7-21); BILIRUBIN, TOTAL 0.3 ng/dL (0.2-1.0); BUN/CREATININE RATIO 8.57 (6.0-28.6); CALCIUM 8.2 mg/dL (8.5-10.1); CREATININE, SERUM 1.4 mg/dL (0.55-1.02); POTASSIUM 3.8 mmol/L (3.5-5.1); PROTEIN, TOTAL 6.2 g/dL (6.4-8.2)
[2024-07-13 13:18] LABS: LACTIC ACID, BLOOD 1.1 mmol/L (0.4-2.0)
[2024-07-13 13:47] LABS: BILIRUBIN, URINE NEGATIVE (negative); BLOOD/HGB, URINE LARGE (Negative); KETONE, URINE NEGATIVE (Negative); LEUK ESTERASE, URINE SMALL (negative); NITRITE, URINE NEGATIVE (negative)
[2024-07-13 14:07] LABS: BACTERIA, URINE 3+ /hpf (negative); CASTS, URINE NONE SEEN \\lpf; CRYSTALS, URINE NONE SEEN (0-1+); EPITHELIAL CELLS, URINE SQUAMOUS 1+ /lpf (0-1+); REFLEX CULTURE, URINE Yes (No); WHITE BLOOD CELLS, URINE >50 /HPF (0-5)
[2024-07-13 14:08] LABS: COLLECTION TYPE, URINE CLEAN CATCH
[2024-07-13] MEDS ORDERED: SODIUM CHLORIDE 0.9% 1,000 ML IV SCH (16:00)
[2024-07-13] MEDS ORDERED: IBLOOD GLUCOSE TEST STRIP 1 EA TEST XX PRN (16:00)
[2024-07-13] MEDS ORDERED: ondansetron HCL 4 MG/2 ML VIAL IV PRN (16:00)
[2024-07-13] MEDS ORDERED: DEXTROSE 5% 1,000 ML IV PRN (16:00)
[2024-07-13] MEDS ORDERED: ACETAMINOPHEN 325 MG TAB PO PRN (16:00)
[2024-07-13] MEDS ORDERED: DEXTROSE 50% 50 ML SYR IV PRN ×2 (16:00)
[2024-07-13] MEDS ORDERED: GLUCAGON,HUMAN RECOMBINANT 1 MG/ML VIAL SUB-Q PRN (16:00)
[2024-07-13] MEDS ORDERED: OXYCODONE HCL 5 MG TAB PO PRN (16:15)
[2024-07-13 16:48] VITALS: BP 145/87
[2024-07-13] MEDS ORDERED: IBLOOD GLUCOSE TEST STRIP 1 EA TEST VI SCH (17:00)
[2024-07-13] MEDS ORDERED: INSULIN LISPRO 100 UNIT/ML ML SUB-Q SCH (17:00)
[2024-07-13] MEDS ORDERED: ALBUTEROL SULFATE 0.083% 3 ML VIAL INH PRN (17:30)
--- NOTE | 2024-07-13 17:35 | NUR ---
Patient to the medical floor. Patient is alert and oriented x3, no acute distress. Patient is on 2L oxygen per nc, respirations non labored. IV fluids started per order. Patient has a notable wound left groin area, will take photos and place in chart. Patient reports 10/10 left groin pain. Admin oxycodone 10mg po and tyelnol 650mg po at this time. Patient requesting to eat dinner at this time. Call light within reach.
--- NOTE | 2024-07-13 18:50 | NUR ---
Consent obtained for photos. Pics placed in chart.
--- NOTE | 2024-07-13 19:05 | NUR ---
REPORT RECEIVED FROM FIDELINA GARZA. pt RESTING ON LEFT SIDE. LAP SITES CDI. BOARD UPDATED. pt DENIES ANY OTHER NEEDS AT THIS TIME. CALL LIGHT WITHIN REACH.
--- NOTE | 2024-07-13 19:05 | NUR ---
REPORT RECEIVED FROM BRENDA GARZA. pt RESTING IN THE BED. BOARD UPDATED. pt DENIES ANY NEEDS AT THIS TIME. CALL LIGHT WITHIN REACH.
[2024-07-13] MEDS ORDERED: CEFEPIME HCL/D5W 1 GM/100 ML PIGGYBACK IV SCH (20:00)
[2024-07-13 20:17] VITALS: BP 115/62
--- NOTE | 2024-07-13 20:20 | NUR ---
HARVEST MANAGER OBTAINED VITALS. NO NEW I&O AT THIS TIME. PT STATES NO NEEDS AT THIS TIME. CALL LIGHT WITHIN REACH.
[2024-07-13 21:00] VITALS: BP 115/62
[2024-07-13] MEDS ORDERED: GABAPENTIN 300 MG CAP PO SCH (21:00)
--- NOTE | 2024-07-13 21:00 | NUR ---
pt RESPOSITIONED WITH PILLOWS BEHIND BACK. IV ASSESSED, WNL. SCHEDULED MEDS ADMINISTERED. pt DENIES ANY PAIN AT THIS TIME. BG CHECKED. SS INSULIN ADMINISTERED. pt DENIES ANY OTHER NEEDS AT THIS THIS TIME. CALL LIGHT WITHIN REACH.
--- NOTE | 2024-07-13 21:00 | NUR ---
ASSESSMENT AND VITAL SIGNS DONE. PURE WICK IN PLACE. WOUNDS CDI. pt DENIES ANY PAIN AT THIS TIME. BG CHECKED, SS INSULIN ADMINISTERED. SCHEDULED MEDS ADMINISTERED. pt DENIES ANY OTHER NEEDS AT THIS TIME. CALL LIGHT WITHIN REACH.
--- NOTE | 2024-07-13 22:01 | EKG ---
[facility] [address] [place] [address] Signed Normal sinus rhythm Normal ECG When compared with ECG of 04-JUN-2024 15:41, No significant change was found Confirmed by Rohini Louise MD () on 07/13/2024 10:01:39 PM Electronically Signed By: ROHINI LOUISE MD 07/13/242200 PATIENT NAME: WILBERT KUO Electrocardiogram DATE OF : 76 PHYSICIAN: ROHINI LOUISE MD REPORT #: [id number] REPORT IS CONFIDENTIAL AND NOT TO BE RELEASED WITHOUT AUTHORIZATION
--- NOTE | 2024-07-13 23:50 | NUR ---
pt RESTING IN THE BED WITH EYES CLOSED. RR EVEN AND UNLABORED. CALL LIGHT WITHIN REACH.
[2024-07-14] VITALS (8 sets, daily range): BP systolic 130–148; BP diastolic 69–108
--- NOTE | 2024-07-14 01:12 | NUR ---
pt RESTING IN THE BED WITH EYES CLOSED. RR EVEN AND UNLABORED. CALL LIGHT WITHIN REACH.
--- NOTE | 2024-07-14 01:34 | NUR ---
IN RM TO HANG pt ABX. pt DENIES ANY NEEDS AT THIS TIME. IVF INFUSING PER ORDER. CALL LIGHT WITHIN REACH.
--- NOTE | 2024-07-14 01:46 | NUR ---
CHOCOLATE PACKER OBTAINED VITALS AND I&O. PT STATES NO NEEDS AT THIS TIME. CALL LIGHT WITHIN REACH.
--- NOTE | 2024-07-14 04:00 | NUR ---
pt RESTING IN THE BED WITH EYES CLOSED. RR EVEN AND UNLABORED. CALL LIGHT WITHIN REACH.
[2024-07-14 05:37] LABS: BASOPHILS 0.6 % (0-2); EOSINOPHILS 3.6 % (0-6); HEMATOCRIT 32.1 % (35.0-50.0); HEMOGLOBIN 10.6 g/dL (12.0-18.0); MCH 27.3 (27-36); MCHC 33.1 g/dl (30-36); MCV 82.6 fl (81-99); MONOCYTES 7.3 % (0-12); NEUTROPHILS 61.5 % (39-80); PLATELET COUNT 368 K/uL (140-440); RBC 3.88 M/ul (4.3-5.7); RDW 14.4 (10.5-15.0)
[2024-07-14 05:56] LABS: ALBUMIN 1.1 g/dL (3.4-5.0); ALBUMIN/GLOBULIN RATIO 0.22 (1.1-2.4); ANION GAP 12.9 (7-21); BILIRUBIN, TOTAL 0.3 ng/dL (0.2-1.0); BUN/CREATININE RATIO 11.27 (6.0-28.6); CREATININE, SERUM 1.33 mg/dL (0.55-1.02); MAGNESIUM 1.8 mg/dL (1.8-2.4); PHOSPHORUS, INORGANIC 4.5 mg/dL (2.5-4.9); POTASSIUM 3.9 mmol/L (3.5-5.1); PROTEIN, TOTAL 6.2 g/dL (6.4-8.2)
--- NOTE | 2024-07-14 06:18 | NUR ---
pt UP TO THE BSC TO TRY AND HAVE A BM. MINIMAL AMMOUNT OF DRAINAGE FROM WOUND. pt DENIES ANY OTHER NEEDS AT THIS THIS TIME. CALL LIGHT WITHIN REACH. SCHEDULED MEDS ADMINISTERED. VITAL SIGNS DONE.
[2024-07-14] MEDS ORDERED: LEVOTHYROXINE SODIUM 25 MCG TAB PO SCH (07:00)
--- NOTE | 2024-07-14 07:40 | NUR ---
REPORT RECEIVED FROM GREG CARR. PT RESTING IN BED AWAKE AND ALERT AT THIS TIME. NEW BAG OF IVF HUNG. PT IS REQUESTING COFFEE - PROVIDED. NO OTHER REQUESTS AT THIS TIME, CALL LIGHT IN REACH.
--- NOTE | 2024-07-14 07:46 | NUR ---
UR CLINICAL REVIEW: [facility] [place], MEETS INPT FOR GENERAL ADMISSION CRITERIA WELL UTI [facility] INPT 07/13/24 @ 1603 ORDER [facility] FAXED FOR AUTH DC PLAN PENDING FURTHER EVAL AND TREATMENT PLAN 07/16/24
--- NOTE | 2024-07-14 08:51 | CONS ---
[facility] [address] [place], [place] [address] Signed DATE OF CONSULTATION: 07/14/2024 CHIEF COMPLAINT: Left proximal thigh wound. HISTORY OF PRESENT ILLNESS: Heather is a 44-year-old obese diabetic female, who I have known for many years. She developed three rather significant abscesses in April of 2024, one was up on the mons, one was near the labia, and another one was in the proximal upper inner thigh. We took her to the operating room for incision and drainage. She grew back group B Streptococcus. She did well on wound care and antibiotics. She was sent to a local detention. She did not like the detention, so she left and went back to her house. Her daughter has been helping her with wound care. She has been doing actually quite well except now she was feeling dizzy and fell at home a couple of times. Her family called the ambulance and had her brought to the emergency room. The wound on the mons and next to the labia have essentially healed. Just a little bit of granulation tissue left next to the labia, but on the proximal inner thigh where it is very moist and difficult to get to that wound is still draining and some pus and has some fibrinous exudate; however, it is markedly improved from what she had in April. She has been admitted to our Internal Medicine service with cefepime and daptomycin. I am asked to see her again as a local general surgeon on-call. PAST MEDICAL HISTORY: Hypertension, diabetes obesity, obstructive sleep apnea, MRSA, group B strep, chronic back pain, headaches, asthma, COPD, anxiety, IN x3 in 2020, stroke in 2023, congestive heart failure, and coronary artery disease. PAST SURGICAL HISTORY: Includes right ankle hernia, , cardiac stents x3, I and D of wounds x2, most recent in April 2024. SOCIAL HISTORY: She does not smoke. She likes marijuana and drinks alcohol once a while. She is to [place]. Her mom is Kimmy at . Dr. Madelyn Elder is her primary care provider. She prefers the [facility]. FAMILY HISTORY: None. REVIEW OF SYSTEMS: She had 10 systems reviewed, really she is about the same. ALLERGIES: Electronically Signed By: BEN CROOKS MD 07/14/24 0851 PATIENT NAME: HEATHER KUO CONSULTATION DATE OF : 76 REPORT #: [id number] PHYSICIAN: BEN CROOKS MD PCP: MADELYN ELDER MD REPORT IS CONFIDENTIAL AND NOT TO BE RELEASED WITHOUT AUTHORIZATION [facility] [address] [place], [place] [address] Signed Tapioca, calamine, metformin, latex, and apricots. MEDICATIONS: Levothyroxine, Lasix, metoprolol, atorvastatin, gabapentin, nitroglycerin, albuterol, and insulin. PHYSICAL EXAMINATION: VITAL SIGNS: Her blood pressure is 147/73, heart rate 78, respiratory rate 16, temperature is 98.0, and she is 100% on 2 L nasal cannula. She is 5 feet 6 inches tall at 167 kg with a body mass index of 44. GENERAL: Heather is a 44-year-old obese female, lying supine in her hospital bed, watching TV. She is in no acute distress. She is very obese with an enormous pannus fdc down her thighs. : With the help of our nurse Geraldine, we were able to look at the perineum. The wound on the left mons is completely covered with epithelium and healed. The one next to the labia has an area about 0.5 cm wide x 1 cm long with a little bit of granulation tissue and it is quite healthy and then on the upper inner left thigh that wound is still open with some draining pus and a little induration around it with some fibrinous exudate. LABORATORY DATA: Her white blood cell count is 8.6 and hemoglobin 10.2. Her creatinine is 1.3 and glucose 164. Her urine shows the blood, bacteria, white blood cells, protein, and glucose. The urine culture is pending. The blood cultures are pending. The wound cultures are pending. Liver function tests are negative. Albumin is very low at 1.1. Lactic acid was normal at 1.1. IMAGING DATA: X-rays none. ASSESSMENT/PLAN: Heather is a 44-year-old obese diabetic female, who overall actually is doing quite well. Her left perineum is much improved from what we had in April 2024. She always has urinary tract infection despite antibiotics. At this point, we are going to let her eat today. We will get her hydrated and continue her antibiotics. We will get her to the operating room tomorrow. We will open up that area nicely, so that we can put in some gauze and her daughter will be able to help her and I am sure that will heal just fine in due time. She has expressed understanding and agrees with the above plan. Ben Crooks MD Electronically Signed By: BEN CROOKS MD 07/14/24 0851 PATIENT NAME: HEATHER KUO CONSULTATION DATE OF : 76 REPORT #: [id number] PHYSICIAN: BEN CROOKS MD PCP: MADELYN ELDER MD REPORT IS CONFIDENTIAL AND NOT TO BE RELEASED WITHOUT AUTHORIZATION [facility] [address] [place] [address] Signed ANNY/MODL /[id number] cc: Patient Chart Dr. Madelyn Crooks MD Copies: BEN CROOKS MD ~ Electronically Signed By: BEN CROOKS MD 07/14/24 0851 PATIENT NAME: HEATHER KUO CONSULTATION DATE OF : 76 REPORT #: [id number] PHYSICIAN: BEN CROOKS MD PCP: MADELYN ELDER MD REPORT IS CONFIDENTIAL AND NOT TO BE RELEASED WITHOUT AUTHORIZATION
[2024-07-14] MEDS ORDERED: DAPTOmycin 500 MG/10 ML VIAL IV SCH (09:00)
--- NOTE | 2024-07-14 09:20 | NUR ---
MEDICATIONS ADMINISTERED, SEE MAR. ASSESSMENT COMPLETE. PT IS SITTING UP IN BED JUST FINISHED HER BREAKFAST TRAY. PT IS AWAKE AND ALERT, CONVERSING WITH THIS RN. PT REPORTS L GROIN WOUND PAIN IS AT A 9/10, PRN PAIN MEDICATION ADMINISTERED, SEE MAR. PT REFUSES ICE PACK OR REPOSITIONING AT THIS TIME. SCABBED WOUND NOTED TO PTs LLQ ABD, WOUND HAS NO DRAINAGE, NO REDNESS/WARMTH NOTED. OPEN WOUND TO L GROIN HAS PURULENT DRAINAGE NOTED WITH REDNESS AT WOUND EDGES. PT NERVOUS IN ALLOWING THIS RN TO LOOK AT WOUND SHE REPORTS IT IS PAINFUL TO TOUCH. WOUND IS UNCOVERED AT THIS TIME. LUNG SOUNDS CLEAR TO BUL, DIMINISHED IN BLL. PT HAS NC IN PLACE AT 2L, REPORTS NO SOB BUT DOES REPORT THAT IT FEELS DIFFICULT TO TAKE A DEEP BREATH IN WHEN INSTRUCTED. SPO2 IS 100% AT THIS TIME. PT ENCOURAGED TO REPOSITION, DEEP BREATHING ENCOURAGED. IVF INFUSING TO R AC WNL, IV ABX RUNNING AT THIS TIME. LEAH GREEN ENTERS TO TAKE PT VS AND I&Os. PT HAS NO OTHER REQUESTS FROM THIS RN, LEAH GREEN REMAINS IN ROOM AT THIS TIME, CALL LIGHT IN REACH.
--- NOTE | 2024-07-14 09:35 | NUR ---
PATIENT RESTING IN BED. ALERT AND ORIENTED. PERSONAL INFORMATION REVIEWED. PATIENT LIVES IN AN APARTMENT WITH [facility]. THEY HAVE 3 FLIGHTS OF STAIRS TO GET INTO APARTMENT AND HAS DIFFCULTY DOING THE STAIRS. SHE HAS AN OXYGEN TANK FROM [employer] AND A CANE TO TAKE UP THE STAIRS. REQUESTING THAT SHE GETS A PORTABLE TANK. PATIENT WILL HAVE MOTHER OR A TAXI TAKE HER HOME AT DISCHARGE. WILL BE HOME WAITING TO HELP WITH STAIRS. PATIENT IS ON A LIST TO GET A BOTTOM LEVEL APARTMENT BUT STILL WAITING. SHE SAYS THEY RECIEVE FOOD STAMPS "900 SOMETHING EACH MONTH." SHE SAYS THEY ARE BEHIND ON THERE POWER BILL AND HAS MADE AN APPOINTMENT WITH [employer] TO GET SIGNED UP FOR ASSISTANCE BUT HAS NOT MADE IT TO THE APPOINTMENT AND STATES "SOMEONE TOLD ME THEY RAN OUT OF MONEY AND I KNOW THEY WONT SHUT MY POWER OFF DUE TO ME BEING ON OXYGEN." EDUCATED TO PATIENT TO REACH OUT TO [employer] FOR ASSISTANCE WITH UTILITIES. SHE SAYS HER IS GOING BACK TO WORK. SHE DOES NOT DRIVE BUT HER MOTHER, DAUGHTER AND DRIVE HER PLACES IF SHE NEEDS TO LEAVE THE APARTMENT. SHE HAS DIFFCULTY GETTING OUT OF HER BED. "THATS HOW I ENDED UP HERE. I FELL AND ENDED UP PEEING MY PANTS AND SITTING IN IT." UPDATED MD ABOUT PATIENT NEEDING PT/OT ORDERS POST SURGERY.
--- NOTE | 2024-07-14 10:30 | NUR ---
INTO TO LET PATIENT KNOW. [facility] WILL NOT PROVIDE A PORTABLE OXYGEN SYSTEM UNTIL BEING ON SERVICES FOR AT LEAST SIX MONTHS. PATIENT FRUSTRATED BUT UNDERSTANDING. NO FUTHER CASE MANAGEMENT NEEDS AT THIS TIME.
--- NOTE | 2024-07-14 11:12 | NUR ---
Patient called asking for case management. Case management informed and entered room.
[2024-07-14] MEDS ORDERED: MUPIROCIN22 GM TOP (11:15)
[2024-07-14] MEDS ORDERED: OXYCODONE HCL5 MG PO (11:15)
--- NOTE | 2024-07-14 11:16 | NUR ---
MED REC COMPLETE
--- NOTE | 2024-07-14 11:33 | NUR ---
CHAPLAIN SANDOVAL NOTIFIED OF PTs REQUEST FOR PRAYER PRIOR TO SURGERY AND COMMUNION AFTER SURGERY. LORI REPORTS SHE WILL VISIT.
--- NOTE | 2024-07-14 11:34 | NUR ---
LORI PRESENT IN ROOM AT THIS TIME OFFERING PRAYER.
--- NOTE | 2024-07-14 11:41 | NUR ---
REFERRED BY NURSING STAFF. PT HAD REQUESTED VISIT. PT APPEARS CALM, STATES ANXIETY IS INCREASING, REQUESTED PRAYER TODAY AND EUCHARIST TOMORROW. CHICKEN RAISER PROVIDED SUPPORTIVE PRESENCE, HOSPITALITY PRAYER, ANXIETY CONTAINMENT. WILL RETURN TOMORROW CIRCUMSTANCES ALLOW.
[2024-07-14] MEDS ORDERED: PHARMACY RENAL DOSE ADJUSTMENT 1 DOSE MISC PO SCH (12:00)
--- NOTE | 2024-07-14 12:58 | NUR ---
PT SITTING UP IN BED EATING LUNCH AT THIS TIME. SHE IS ON HER PHONE. CALL LIGHT IN REACH.
--- NOTE | 2024-07-14 13:54 | NUR ---
PT AMBULATES WITH SBA AND PERSONAL CANE TO BSC. BRIEF DRY, PURULENT DRAINAGE FROM WOUND ONLY. PT PROVIDED WITH PRIVACY, CALL LIGHT IN REACH.
--- NOTE | 2024-07-14 14:43 | NUR ---
PATIENT SITTING ON SIDE OF BED. IV ABX HUNG. IV SITE REMAINS PATENT. DENIES ANY FURTHER NEEDS AT THIS TIME. CALL LIGHT WITHIN REACH.
--- NOTE | 2024-07-14 18:26 | NUR ---
PT SITTING UP IN HER BED WITH DINNER TRAY IN FRONT OF HER. PT HAS NO REQUESTS AT THIS TIME, REPORTS THAT HER "HUBBY WILL BE HERE SOON". CALL LIGHT IN REACH.
--- NOTE | 2024-07-14 19:32 | NUR ---
REPORT RECIEVED FROM DAY SHIFT RN. PATIENT RESTING IN BED. DENIES NEEDS AT THIS TIME. CALL LIGHT IN REACH.
--- NOTE | 2024-07-14 20:12 | NUR ---
THIS RN INTO PATIENTS ROOM. PATIENT COMPLAINING OF NEW ONSET 8/10 CHEST PAIN. PATIENT STATES "THIS IS SOMETHING THAT I HAVE NEVER FELT BEFORE. MY BETTER NOT HAVE JINXED ME ABOUT HAVING A HEART ATTACK". VS OBTAINED AND RECORDED. MD LOUISE CALLED VIA TELEPHONE TO UPDATE ABOUT PATIENTS STATUS. TO PLACE ORDERS.
--- NOTE | 2024-07-14 20:25 | NUR ---
MD LOUISE IN ROOM. RT IN ROOM. EKG COMPLETE. LAB IN ROOM TO COMPLETE LAB DRAW.
--- NOTE | 2024-07-14 21:07 | NUR ---
EKG DONE AND HANDED TO PROVIDER FOR REVIEW
--- NOTE | 2024-07-14 21:56 | NUR ---
PATIENT RESTING IN BED. SCHEDULED MEDICATION ADMINISTERED. PRN PAIN MEDICATION ADMNINISTERED PER PATIENT REQUEST. PUREWICK PLACED PER PATIENT REQUEST AFTER MIRYAM CARE PROVIDED. PATIENT DENIES FURTHER NEEDS AT THIS TIME. SF CHELSEALLO PROVIDED. NO FURTHER NEEDS. CALL LIGHT IN REACH.
[2024-07-14] MEDS ORDERED: ALBUTEROL SULFATE 0.083% 3 ML VIAL INH PRN (22:00)
--- NOTE | 2024-07-14 22:29 | EKG ---
[facility] [address] [place] [address] Signed Normal sinus rhythm Low voltage QRS Borderline ECG When compared with ECG of 13-JUL-2024 12:16, No significant change was found Confirmed by Rohini Louise MD () on 07/14/2024 10:28:51 PM Electronically Signed By: ROHINI LOUISE MD 07/14/24 2229 PATIENT NAME: WILBERT KUO SABINO Electrocardiogram DATE OF : 76 PHYSICIAN: ROHINI LOUISE MD REPORT #: [id number] REPORT IS CONFIDENTIAL AND NOT TO BE RELEASED WITHOUT AUTHORIZATION
[2024-07-15] VITALS (11 sets, daily range): BP systolic 111–147; BP diastolic 65–95
--- NOTE | 2024-07-15 00:03 | NUR ---
PATIENT NPO AT THIS TIME. FOOD AND DRINKS REMOVED FROM BEDSIDE TABLE.
--- NOTE | 2024-07-15 02:00 | NUR ---
PATIENT RESTING IN BED. SCHEDULED IV ABX INFUSING PER ORDER. PATIENT REPORTING 8/10 PAIN. PRN PAIN MEDICATION ADMINISTERED PER PATIENT REQUEST. NO FURTHER NEEDS. CALL LIGHT IN REACH.
--- NOTE | 2024-07-15 05:25 | NUR ---
PATIENT RESTING IN BED. VS AND I&Os OBTAINED AND RECORDED. PATIENT UP TO BSC TO VOID. NEW LINENS PLACED. PRE SURGERY WIPE DOWN COMPLETE. NEW GOWN IN PLACE. PATIENT BACK TO BED. SCDs IN PLACE. ALLERGY BAND IN PLACED. NO FURTHER NEEDS. CALL LIGHT IN REACH.
[2024-07-15 05:38] LABS: BASOPHILS 0.6 % (0-2); EOSINOPHILS 4.3 % (0-6); HEMATOCRIT 33.1 % (35.0-50.0); HEMOGLOBIN 10.6 g/dL (12.0-18.0); LYMPHOCYTES 28.8 % (24-44); MCH 26.7 (27-36); MCV 83.3 fl (81-99); MONOCYTES 6.7 % (0-12); NEUTROPHILS 59.6 % (39-80); PLATELET COUNT 395 K/uL (140-440); RBC 3.98 M/ul (4.3-5.7); RDW 14.8 (10.5-15.0)
--- NOTE | 2024-07-15 05:43 | NUR ---
dr jacobs consulting on pt, md made aware of pt's reported chest pain at start of shift and that ekg and troponin x2 wnl-no new orders received at this time.
[2024-07-15 05:52] LABS: ALBUMIN 1.3 g/dL (3.4-5.0); ALBUMIN/GLOBULIN RATIO 0.25 (1.1-2.4); ANION GAP 12.1 (7-21); BILIRUBIN, TOTAL 0.3 ng/dL (0.2-1.0); BUN/CREATININE RATIO 13.66 (6.0-28.6); CALCIUM 8.2 mg/dL (8.5-10.1); CREATININE, SERUM 1.39 mg/dL (0.55-1.02); POTASSIUM 4.1 mmol/L (3.5-5.1); PROTEIN, TOTAL 6.6 g/dL (6.4-8.2)
--- NOTE | 2024-07-15 06:15 | NUR ---
AESTHETICS INSTRUCTOR AND RN OBTAINED VITALS AND I&O. PT ASSISTED UP TO BSC FOR CHG W[place]. AESTHETICS INSTRUCTOR AND RN COMPLETED CHG [place] AND CHANGED BED LINENS. PT GOWN CHANGED. PT THEN ASSISTED INTO NEW BREIF AND BACK INTO BED. SCDS PLACED ON PT LEGS. PT RING AND NECKLACE PLACED INTO LOCK BOX IN ROOM. PT STATES NO FURTHER NEEDS AT THIS TIME. CALL LIGHT WITHIN REACH.
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
--- NOTE | 2024-07-15 07:30 | NUR ---
dr omalley at rn station and aware of gram stain results. no new orders received.
--- NOTE | 2024-07-15 08:25 | NUR ---
MORNING MEDICATIONS ADMINISTERED BY GREG KITCHEN. IV SITE IS CLEAN, DRY, AND INTACT. IV FLUSHED BY GREG KITCHEN. LR WITH STRAIGHT TUBING AND CEFEPIME DOSE IS ON THE BED POLE TO GO DOWN WITH PATIENT TO SURGERY. SCD'S IN PLACE. FULL ASSESSMENT COMPLETE AND DOCUMENTED IN THE CHART. PATIENT IS ALERT AND ORIENTED TIMES FOUR. PUREWICK REMOVES. BRIEF REMAINS IN PLACE. PATIENT IS NPO AT THIS TIME. BOWEL TONES ARE ACTIVE IN ALL FOUR QUADRANTS. PATIENT IS ON 2L NC WHICH IS CHRONIC FOR THE PATIENT. LUNG SOUNDS ARE CLEAR IN THE UPPER LOBES AND DMINISHED IN THE BASES BILATERALLY. PATIENT WITH NO COMPLAINTS OF SOB. PATIENT WITH L SIDED WEAKNESS NOTED. CARDIAC WITH NORMAL S1 AND S2 ON AUSCULTATION. RADIAL PULSES ARE STRONG BILATERALLY. CAPILLARY REFILL IN THE UPPER AND LOWER EXTREMITIES ARE LESS THAN 3 SECONDS BILATERALLY. SENSATION INTACT WITH NO COMPLAINTS OF NUMBNESS OR TINGLING. 2+ PITTING EDEMA NOTED IN THE BILATERAL FEET. SKIN WITH SCABS PRESENT ON THE ABDOMEN AND BILATERAL LOWER EXTREMITIES. PATIENT RATED PAIN 7/10 IN THE LEFT BUTTOCK/GROIN. PATIENT IS NOT REQUESTING ANYTHING FOR PAIN AT THIS TIME. PATIENT STATED HAVING CHEST PAIN. MD NOTIFIED OF PATIENT CHEST PAIN. MD WITH NO NEW ORDERS AT THIS TIME. PATIENT STATED NO FURTHER NEEDS AT THIS TIME. CALL LIGHT AND PERSONAL BELONGINGS ARE WTIHIN REACH.
--- NOTE | 2024-07-15 08:39 | NUR ---
PATIENT LEFT THE FLOOR WITH SPECIAL DEPUTY SHERIFF AT THIS TIME.
[2024-07-15] MEDS ORDERED: MIDAZOLAM HCL 2 MG/2 ML VIAL ONE (09:00)
[2024-07-15] MEDS ORDERED: LIDOCAINE HCL 2% 5 ML SDV ONE (09:00)
[2024-07-15] MEDS ORDERED: ondansetron HCL 4 MG/2 ML VIAL ONE (09:00)
[2024-07-15] MEDS ORDERED: ROCURONIUM BROMIDE 50 MG/5 ML SYR ONE (09:00)
[2024-07-15] MEDS ORDERED: ACETAMINOPHEN 1,000 MG/100 ML VIAL ONE (09:00)
[2024-07-15] MEDS ORDERED: propofoL 200 MG/20 ML VIAL ONE (09:00)
[2024-07-15] MEDS ORDERED: SUCCINYLCHOLINE IN 0.9% NACL 200 MG/10 ML SYRINGE ONE (09:00)
[2024-07-15] MEDS ORDERED: fentaNYL citrate 100 MCG/2 ML VIAL ONE (09:00)
--- NOTE | 2024-07-15 09:12 | NUR ---
PATIENT REMAINS OFF THE FLOOR AT THIS TIME.
[2024-07-15] MEDS ORDERED: NALOXONE HCL 0.4 MG SYR IV PRN (09:30)
[2024-07-15] MEDS ORDERED: fentaNYL citrate 50 MCG/ML SDV IV PRN (09:30)
[2024-07-15] MEDS ORDERED: HYDROmorphone HCL 1 MG/ML SYR IV PRN (09:30)
[2024-07-15] MEDS ORDERED: IBLOOD GLUCOSE TEST STRIP 1 EA TEST VI PRN (09:30)
[2024-07-15] MEDS ORDERED: PROCHLORPERAZINE EDISYLATE 10 MG/2 ML VIAL IV PRN (09:30)
[2024-07-15] MEDS ORDERED: ondansetron HCL 4 MG/2 ML VIAL IV PRN (09:30)
[2024-07-15] MEDS ORDERED: droPERidol 5 MG/2 ML VIAL IV PRN (09:30)
[2024-07-15] MEDS ORDERED: SODIUM HYPOCHLORITE 0.5% 480 ML BTL ONE (09:34)
[2024-07-15] MEDS ORDERED: MUPIROCIN 22 GM TUBE ONE (09:40)
--- NOTE | 2024-07-15 10:06 | NUR ---
PATIENT REMIANS OFF THE FLOOR AT THIS TIME.
--- NOTE | 2024-07-15 10:08 | NUR ---
07/15/24 1008 Celnea Mccain 0958- PT ARRIVES TO PACU, SEMI DUMONT POSITION. OPA IN PLACE, 4L O2 PER NC, BREATHING EVEN AND NON LABORED. LR INFUSING TO RAC IV. ABD SOFT, NON DISTENDED. PACKING IN WOUND TO LEFT GROIN WITH GAUZE IN PLACE. ALL MONITORS IN PLACE.
[2024-07-15] MEDS ORDERED: SEVOFLURANE 250 ML BTL INH ONE (10:25)
--- NOTE | 2024-07-15 10:30 | NUR ---
PT NOT AVAILABLE FOR VISIT. PROVIDED PRAYER.
--- NOTE | 2024-07-15 10:40 | NUR ---
REPORT RECEIVED FROM GREG HUFF IN PACU. VITAL SIGNS TAKEN AND DOCUMENTED IN THE CHART. PACKING FORM FILLED OUT. IV SITE FLUSHED WITH 10 ML NORMAL SALINE. IV DRESSING IS CLEAN, DRY, AND INTACT. PACKING VISUALIZED WITH WATER QUALITY TESTER. CPOX IS AT THE BEDSIDE. PATIENT WITH NO COMPLAINTS OF PAIN AT THIS TIME. ICE WATER AND CRANBERRY/SPRITE GIVEN TO THE PATIENT. PATIENT STATED NO FURTHER NEEDS AT THIS TIME. CALL LIGHT AND PERSONAL BELONGINGS ARE WITHIN REACH.
--- NOTE | 2024-07-15 11:01 | NUR ---
AWARE FOR GRAM STAIN RESULTS.
--- NOTE | 2024-07-15 11:21 | OR ---
[facility] [address], [place] [address] Signed DATE OF OPERATION: 07/15/2024 SURGEON: Ben Damon MD PREOPERATIVE DIAGNOSIS: Persistent left proximal inner thigh wound/abscess. POSTOPERATIVE DIAGNOSIS: Persistent left proximal inner thigh wound/abscess. PROCEDURES: 1. Deep wound cultures. 2. Sharp debridement, left thigh abscess. ESTIMATED BLOOD LOSS: None. INDICATIONS: Heather is a 44-year-old obese diabetic female, who I helped in April 2024 with three abscesses, one is on the mons pubis, one is on the lateral side of the left labia, and one is on the left upper inner thigh, where it joins the perineum. She was doing well and had been discharged to a local extended care facility. She did not like the extended care facility, so she went home. Her daughter has been helping her with wound packing. Of course, the two anterior wounds have healed quite nicely. The one in the upper inner thigh is more difficult to access and that continued to remain open and draining pus. She was dizzy at home and fell a couple of times in the bathroom, so her family brought her to the emergency room. She was admitted to the Internal Medicine service. She has been back on daptomycin and cefepime. She grew out group B strep previously. She also has a history of MRSA. I have been asked to see her as a local general surgeon on-call. I met with Heather and explained her we would have to take her back to the operating room to open that area up, so we could be packed and heal from the inside out. She understands the nature of the surgery. There is risk including, but not limited to bleeding, infection, scarring, change in contour of the skin as well as recurrent abscesses in the same or other locations. She had expressed understanding and wished to proceed. PROCEDURE IN DETAIL: I met with Heather in our preop area. After this, we took her into the operating room and placed in the supine position under general endotracheal tube anesthesia. Her legs were placed up in the bariatric stirrups. Appropriate padding and monitoring had been Electronically Signed By: BEN DAMON MD 07/15/24 1121 PATIENT NAME: HEATHER KUO OPERATIVE REPORT DATE OF : 76 REPORT #: [id number] PHYSICIAN: BEN DAMON MD PCP: MARK ELDER MD REPORT IS CONFIDENTIAL AND NOT TO BE RELEASED WITHOUT AUTHORIZATION [facility] [address], [place] [address] Signed placed. She was prepped and draped in the usual sterile fashion. She was on her preoperative antibiotics along with subcutaneous Lovenox. We took deep wound cultures and realized the wound went up a little farther in the groin crease and we anticipated. Therefore, I took the cautery and removed about 2 cm wide and 4 cm in length an area of skin overlying that tunnel. We cauterized the granulation tissue in that area. We then used full-strength Dakin solution, soaked gauze and we packed it all the way up to the top down to the bottom and cut it to length. Dry gauze was placed over that. Her legs were then taken out of lithotomy position. She was awakened from anesthesia, extubated in the OR and taken to the recovery room in stable condition. Ben Damon MD ALB/MODL /[id number] cc: Ben Damon MD Patient Chart Dr. Mark Elder Copies: BEN DAMON MD ~ Electronically Signed By: BEN DAMON MD 07/15/24 1121 PATIENT NAME: HEATHER KUO OPERATIVE REPORT DATE OF : 76 REPORT #: [id number] PHYSICIAN: BEN DAMON MD PCP: MARK ELDER MD REPORT IS CONFIDENTIAL AND NOT TO BE RELEASED WITHOUT AUTHORIZATION
--- NOTE | 2024-07-15 11:24 | NUR ---
INTO SEE PATIENT. RESTING IN BED POST OP. DENIES ANY NEEDS FROM CM TODAY.
--- NOTE | 2024-07-15 11:43 | NUR ---
PATIENT IS LYING IN BED WITH EYES CLOSED AND RESPIRATIONS ARE EVEN AND UNLABORED. PATIENT WAKENS UPON RN SPEAKING TO PATIENT. VITAL SIGNS TAKEN AND DOCUMENTED IN THE CHART. CPOX REMAINS AT BEDSIDE. CALL LIGHT AND PERSONAL BELONGINGS ARE WITHIN REACH.
--- NOTE | 2024-07-15 12:35 | NUR ---
PATIENT 1200 INSULIN AND 0700 LEVOTHYROXINE ADMINISTERED PER THE EMAR. PATIENT STATED SHE CANNOT TAKE THE LEVOTHYROXINE WITH LUNCH. RN EDUCATED PATIENT TO WAIT AN HOUR BEFORE EATING LUNCH. PATIENT EXPRESSED UNDERSTANDING. PATIENT WITH NO COMPLAINTS OF PAIN OR NAUSEA. VITAL SIGNS TAKEN AND DOCUMENTED IN THE CHART. CPOX AT BEDISDE. PATIENT STATED NO FURTHER NEEDS AT THIS TIME. CALL LIGHT AND PERSONAL BELONGINGS ARE WITHIN REACH.
--- NOTE | 2024-07-15 14:00 | NUR ---
1400 CEFEPIME STARTED AT THIS TIME. IV SITE FLUSHED WITH 10 ML NORMAL SALINE. IV DRESSING IS CLEAN, DRY, AND INTACT. IV DRESSING TAPED DOWN. CEFEPIME IS INFUSING AT 25 ML/HR AND NS IS INFUSING AT 100 ML/HR. PATIENT RATED PAIN 8/10 IN THE LEFT SIDE OF THE GROIN, PATIENT IS NOT REQUESTING PAIN MEDICATION AT THIS TIME. SKIN WITH SCATTERED SCABS ON THE ABDOMEN AND THE BLE. WOUND ON THE LEFT SIDE OF THE GROIN WITH PACKING IN PLACE. BRIEF IN PLACE WITH A NEW PUREWICK. MIRYAM CARE COMPLETE. SKIN ASSESSMENT COMPLETE WITH GREG KITCHEN. VITAL SIGNS TAKEN AND DOCUMENTED IN THE CHART. PATIENT TEMPERATURE IS ELEVATED. BLANKETS REMOVED AND PATIENT EDUCATED. PATIENT EXPRESSED UNDERSTANDING. PATIENT IS ON ROOM AIR AND LUNG SOUNDS ARE CLEAR IN THE UPPER LOBES BILATERALLY AND DIMINISHED IN THE BASES BILATERALLY. PATIENT STATED NO FURTHER NEEDS AT THIS TIME. CALL LIGHT AND PERSONAL BELONGINGS ARE WITHIN REACH.
--- NOTE | 2024-07-15 14:29 | NUR ---
VISITED TO PROVIDED EUCHARIST. PT STATES NOT FEELING WELL, REQUESTED DELAY SACRAMENT TO TOMORROW, TALKED OF END OF LIFE CONVERSATION HELD WITH FAMILY, EVIDENCING ANXIETY REGARDING HEALTH AND PROGNOSIS. SYSTEM SAFETY MANAGER PROVIDED SUPPORTIVE PRESENCE, EXPLORED MEANING, FACILITATED LIFE REVIEW, RELAYED INFORMATION FROM CARE TEAM, PROVIDED ANTICIPATORY GUIDANCE, PROVIDED PRAYER. WILL RETURN TOMORROW FOR SACRAMENT CIRCUMSTANCES ALL. .
--- NOTE | 2024-07-15 15:00 | NUR ---
PT CALLED WITH CALL LIGHT; COULD NOT MAKE OUT WHAT SHE WAS SAYING. CAME TO ROOM TO SEE WHAT SHE NEEDED. PT STATED. "MY PEE THING NEEDS EMPTIED AND THOSE LEG THINGYS AREN'T WORKING." THIS SRT DUMPED AND MEASURED 1500 CC FROM PUREWICK SUCTION CANISTER. SUCTION HOOKED BACK UP AND RUNNING. SCD'S APPEARED TO BE WORKING FINE. TURNED SCD MACHINE OFF, AND THEN BACK ON TO RE-VAMP THEM FOR PATIENT SATISFACTION. PT REPORTED THAT AFTER THEY WERE TURNED BACK ON, THEY STARTED WORKING MUCH BETTER. CALL LIGHT IN HAND, PT LOOKING OVER MENU. DENIES ANY FURTHER NEEDS AT THIS TIME.
--- NOTE | 2024-07-15 15:32 | NUR ---
PATIENT IS LYING IN BED WITH EYES CLOSED AND RESPIRATIONS ARE EVEN AND UNLABORED. CPOX AT BEDSIDE. CALL LIGHT AND PERSONAL BELONGINGS ARE WITHIN REACH.
--- NOTE | 2024-07-15 16:11 | NUR ---
PRN PAIN MEDICATION ADMINISTERED PER THE EMAR. PATIENT RATED PAIN 8/10 IN THE LEFT SIDE OF GROIN. PATIENT TEMP WAS 100.2 F. NEW BAG OF NS STARTED. IV PUMP CLEARED AT THIS TIME. PATIENT STATED NO FURTHER NEEDS AT THIS TIME. CALL LIGHT AND PESONAL BELONGINGS ARE WTIHIN REACH.
--- NOTE | 2024-07-15 17:38 | NUR ---
PATIENT IS SITTING UPRIGHT IN BED AND WORKING ON HER DINNER TRAY. EYES ARE OPEN AND RESPIRATIONS ARE EVEN AND UNLABORED. TV IS ON. CALL LIGHT AND PERSONAL BELONGINGS ARE WITHIN REACH.
--- NOTE | 2024-07-15 18:08 | NUR ---
PATIENT IS SITTING IN THE BED AND WATCHING TV. PATIENT WITH DINNER TRAY SET UP IN FRONT OF THE PATIENT AND SHE IS WORKING ON HER DINNER. CALL LIGHT AND PERSONAL BELONGINGS ARE WITHIN REACH.
--- NOTE | 2024-07-15 19:30 | NUR ---
REPORT RECIEVED FROM DAY SHIFT RN. PATIENT RESTING IN BED. DENIES NEEDS AT THIS TIME. CALL LIGHT IN REACH.
--- NOTE | 2024-07-15 20:19 | NUR ---
MANAGER PAYMENT OBTAINED VITALS AND INTAKE. NO NEW OUTPUT AT THIS TIME. PT STATES NO NEEDS AND CALL LIGHT WITHIN REACH.
--- NOTE | 2024-07-15 20:50 | NUR ---
PLANT SCIENTIST TO ROOM FOR SCHEDULED MEDICATION ADMINISTRATION. IV FLUSHED WITH 10 ML NS. PATENT, WNL. PT COMPLAINS OF 8/10 TO GROIN AND DOWN LLE. PRN ADMINISTERED. SEE EMAR. ICE WATER REFILLED. PT DENIES FURTHER NEEDS AT THIS TIME. CALL LIGHT IN REACH.
[2024-07-16] VITALS (10 sets, daily range): BP systolic 109–152; BP diastolic 62–82
--- NOTE | 2024-07-16 00:05 | NUR ---
PHARMACEUTICAL SALES AND RN DONNED PPE AND ENTERED ROOM. PHARMACEUTICAL SALES ASSISTED WHILE RN PACKED WOUND. PT BREIF, CHUCKS PAD, AND PUREWICK CHANGED. VITALS AND I&O OBTAINED AND DOCUMENTED. PT STATES NO FURTHER NEEDS FROM PHARMACEUTICAL SALES. CALL LIGHT WITHIN REACH AND RN IN ROOM.
--- NOTE | 2024-07-16 00:05 | NUR ---
PRN MEDICATION ADMINISTERED FOR TEMP OF 101.2. COLD WASH CLOTH PLACED ON FOREHEAD. EXCESS BLANKETS REMOVED OFF PATIENT. PATIENT HAS NO FURTHER NEEDS. CALL LIGHT IN REACH.
--- NOTE | 2024-07-16 00:12 | NUR ---
WOUND CARE COMPLETED PER ORDER. PACKING SOAKED WITH DAKINS IN PLACE. PATIEN TOLL WELL. NO FURTHER NEEDS. CALL LIGHT IN REACH.
--- NOTE | 2024-07-16 02:23 | NUR ---
PATIENT RESTING IN BED. IV ABX INFUSING PER ORDER. TEMP OBTAINED AND RECORDED. NEW BAG IV FLUID INFUSING PER ORDER. NO FURTHER NEEDS. CALL LIGHT IN REACH.
--- NOTE | 2024-07-16 05:10 | NUR ---
GRINDER MACHINE KNIFE SETTER AND RN OBTAINED VITALS AND I7O. PUREWICK CANNISTER EMPTIED. PT STATES NO NEEDS AT THIS TIME. CALL LIGHT WITHIN REACH.
[2024-07-16 05:53] LABS: BASOPHILS 0.6 % (0-2); EOSINOPHILS 1.4 % (0-6); HEMATOCRIT 28.8 % (35.0-50.0); HEMOGLOBIN 9.5 g/dL (12.0-18.0); LYMPHOCYTES 15.2 % (24-44); MCH 27.4 (27-36); MCV 83.2 fl (81-99); MONOCYTES 3.6 % (0-12); NEUTROPHILS 79.2 % (39-80); PLATELET COUNT 315 K/uL (140-440); RBC 3.46 M/ul (4.3-5.7); RDW 15.1 (10.5-15.0)
[2024-07-16 06:09] LABS: ALBUMIN 1.1 g/dL (3.4-5.0); ALBUMIN/GLOBULIN RATIO 0.22 (1.1-2.4); ANION GAP 13.2 (7-21); BILIRUBIN, TOTAL 0.5 ng/dL (0.2-1.0); BUN/CREATININE RATIO 13.04 (6.0-28.6); CALCIUM 7.8 mg/dL (8.5-10.1); CREATININE, SERUM 1.61 mg/dL (0.55-1.02); POTASSIUM 4.2 mmol/L (3.5-5.1)
--- NOTE | 2024-07-16 07:18 | NUR ---
REPORT RECEIVED FROM CLAUDIA RODRIGEZ. PATIENT IS LYING IN BED AND ON THEIR PHONE. RESPIRATIONS ARE EVEN AND UNLABORED. CALL LIGHT AND PERSONAL BELONGINGS ARE WITHIN REACH.
--- NOTE | 2024-07-16 08:38 | NUR ---
PATIENT IS SITTING UPRIGHT IN BED AND EATING BREAKFAST. PATIENT WITH O2 NC IN PLACE. PATIENT IS WATCHING TV. CALL LIGHT AND PERSONAL BELONGINGS ARE WITHIN REACH.
--- NOTE | 2024-07-16 09:58 | NUR ---
PATIENT IS LYING IN BED WITH NC IN PLACE. PATIENT IS LOOKING ON THEIR PHONE WITH THE TV ON. CALL LIGHT AND PERSONAL BELONGINGS ARE WITHIN REACH.
--- NOTE | 2024-07-16 11:00 | NUR ---
PATIENT IS LYING IN BED AND STATES "NOT FEELING GOOD TODAY". PRN TYLENOL AND OXYCODONE ADMINISTERED PER THE EMAR. PATIENT RATED PAIN AN 8/10 IN THE LEFT SIDE OF THE GROIN. PATIENT IS ON A 60 GRAM CARB DIET. BOWEL TONES ARE ACTIVE IN ALL FOUR QUADRANTS. PATIENT WITH NO COMPLAINTS OF NAUSEA. PATIENT IS ON 2L NC WITH THE CPOX AT BEDSIDE. LUNG SOUNDS ARE CLEAR IN THE UPPER LOBES AND DIMINISHED IN THE BASES. PATIENT WITH NO COMPLAINTS OF SOB. FAVIOLA AUSTIN RN IS IN THE ROOM. PATIENT EDUCATED ON THE IMPORTANCE OF USING THE IS. PATIENT REFUSED AND STATED "I DON'T LIKE IT". FAVIOLA CALLED RT MIRIAM ABOUT COMING TO SET UP AND EDUCATE PATIENT ON ACAPELLA USE. PATIENT WITH LEFT SIDED WEAKNESS NOTED AT BASELINE. CARDIAC WITH NORMAL S1 AND S2 ON AUSCULTATION. RADIAL PULSES ARE STRONG BILATERALLY. RIGHT TIBIAL PULSE IS STRONG AND LEFT TIBIAL PULSE IS FAINT. SENSATION INTACT WITH NO COMPLAINTS OF NUMBNESS OR TINGLING. CAP REFILL IS LESS THAN 3 SECONDS IN THE UPPER AND LOWER EXTREMITIES. 2+ PITTING EDEMA NOTED IN THE BILATERAL FEET AND ANKLES. SKIN ASSESSMENT COMPLETE WITH GREG SALMERON. SCABS PRESENT ON THE ABDOMEN AND BLE. WOUND CARE COMPLETE WITH DAKENS SOAKED ARLETTE PACKED INTO THE LEFT SIDE OF GROIN. PATIENT TOLERATED WELL. SEROSANGUINOUS DRAINAGE NOTED. MIRYAM CARE AND ANNE CARE COMPLETE. NEW BRIEF IN PLACE. NEW PUREWICK IN. PATIENT EDUCATED ON THE IMPORTANCE OF AMBULATING AND SITTING IN THE CHAIR. GREG SALMERON AT BEDSISDE WHEN PATIENT REFUSED TO GET OUT OF BED. PATIENT STATED NO FURTHER NEEDS AT THIS TIME. CALL LIGHT AND PERSONAL BELONGINGS ARE WITHIN REACH.
[2024-07-16] MEDS ORDERED: METOPROLOL TARTRATE 25 MG TAB PO SCH (11:42)
--- NOTE | 2024-07-16 13:57 | NUR ---
PATIENT IS SITTING UP IN BED WITH WITH EYES OPEN AND RESPIRATIONS ARE EVEN AND UNLABORED. NC IN PLACE. TV ON. CALL LIGHT AND PERSONAL BELONGINGS ARE WITHIN REACH.
--- NOTE | 2024-07-16 14:37 | NUR ---
PATIENT IS SITTING UPRIGHT IN BED AND WATCHING TV. PATIENT WITH [address] PATIENT IS WATCHING TV. PATIENT RATED PAIN A 7/10 IN THE LEFT SIDE OF GROIN. PATIENT IV SITE FLUSHED WITH 10 ML NORMAL SALINE. NS IS INFUSING AT 125 ML/HR. CEFEPIME IS ALSO INFUSING AT 25 ML/HR. PATIENT GIVEN TO CUPS OF ICE PER PATIENT REQUEST. PATIENT STATED NO FURTHER NEEDS AT THIS TIME. CALL LIGHT AND PERSONAL BELONGINGS ARE WITHIN REACH.
--- NOTE | 2024-07-16 15:29 | NUR ---
VISITED PT TO PROVIDE EUCHARIST REQUESTED. PT APPEARED TOO TIRED, STATED DESIRE FOR NAP. PLASTER MECHANIC PROVIDED SUPPORTIVE PRESENCE, HOSPITALITY, PRAYER. DID NOT PROVIDE SACRAMENT DUE TO PT CONDITION. PT EXPRESSED GRATITDUE FOR VISIT, NO CURRENT DESIRE FOR SACRAMENT.
--- NOTE | 2024-07-16 15:47 | NUR ---
PATIENT IS LYING IN BED AND LOOKING ON THEIR PHONE. TV IS ON. PATIENT WITH EYES OPEN AND RESPIRATIONS ARE EVEN AND UNLABORED. PATIENT STATED NO NEEDS AT THIS TIME. CALL LIGHT AND PERSONAL BELONGINGS ARE WITHIN REACH.
[2024-07-16 16:14] LABS: BUN/CREATININE RATIO 12.42 (6.0-28.6); CALCIUM 7.8 mg/dL (8.5-10.1); CREATININE, SERUM 1.69 mg/dL (0.55-1.02)
--- NOTE | 2024-07-16 16:44 | NUR ---
PATIENT IS LYING IN BED WITH EYES CLOSED AND RESPIRATIONS ARE EVEN AND UNLABORED. PATIENT WITH [address] TV IS ON. CALL LIGHT AND PERSONAL BELONGINGS ARE WITHIN REACH.
--- NOTE | 2024-07-16 18:26 | NUR ---
PATIENT IS LYING IN BED WITH EYES OPEN AND RESPIRATIONS ARE EVEN AND UNLABORED. PATIENT WITH NC IN PLACE. PATIENT IS LOOKING ON THEIR PHONE AND THE TV IS ON. CALL LIGHT AND PERSONAL BELONGINGS ARE WITHIN REACH.
--- NOTE | 2024-07-16 19:32 | NUR ---
REPORT RECEIVED FROM DAY SHIFT RN. PT LYING IN BED ALERT AND ORIENTED. FRESH WATER PROVIDED. NO FURTHER NEEDS. WHITE BOARD UPDATED. CALL LIGHT IN REACH.
--- NOTE | 2024-07-16 21:51 | NUR ---
PT RESTING ON RIGHT SIDE WITH EYES CLOSED. AWAKENS EASILY. VS AND I&O OBTAINED. SCHEDULED MEDS ADMIN PER EMAR. PT REPORTS LEFT GROIN PAIN 12/29. PRN FOR PAIN ADMIN PER EMAR. NO FURTHER NEEDS AT THIS TIME. CALL LIGHT IN REACH.
--- NOTE | 2024-07-16 23:06 | NUR ---
DRESSING CHANGE COMPLETE PER WOUND CARE ORDERS. PT JOY FAIR. 2PA TO CHANGE LINENS DUE TO INCONTINENCE. NEW PUREWICK PLACED AFTER MIRYAM CARE. 2PA TO REPOSITION IN BED. SCD'S IN PLACE. NO FURTHER NEEDS. CALL LIGHT IN REACH.
[2024-07-17] VITALS (9 sets, daily range): BP systolic 109–141; BP diastolic 63–79
--- NOTE | 2024-07-17 01:08 | NUR ---
IV PUMP ALARMING. ISSUE RESOLVED. PT LYING ON BACK RESTING WITH EYES CLOSED. OXYGEN REMOVED. SpO2 96% ON RA. HR 70'S.
--- NOTE | 2024-07-17 02:55 | NUR ---
IN FOR SET UP MECHANIC AUTOMATIC LINE. PT AWAKENS EASILY. IV FLUSHED WITH NS. BLOOD RETURN NOTED. IV ABX INFUSING PER ORDER. NO NEEDS AT THIS TIME. CALL LIGHT IN REACH.
[2024-07-17 05:44] LABS: BASOPHILS 0.7 % (0-2); EOSINOPHILS 4.4 % (0-6); HEMATOCRIT 26.5 % (35.0-50.0); HEMOGLOBIN 8.7 g/dL (12.0-18.0); LYMPHOCYTES 24.3 % (24-44); MCH 27.3 (27-36); MCV 82.6 fl (81-99); MONOCYTES 7.1 % (0-12); NEUTROPHILS 63.5 % (39-80); PLATELET COUNT 256 K/uL (140-440); RBC 3.21 M/ul (4.3-5.7); RDW 14.9 (10.5-15.0)
--- NOTE | 2024-07-17 06:01 | NUR ---
LAB IN FOR MORNING DRAW. VS AND I&O OBTAINED. SCHEDULED MEDS ADMIN PER EMAR. NEW PUREWICK PLACED AFTER MIRYAM CARE. PT ABLE TO ASSIST WITH CARES. NO FURTHER NEEDS. CALL LIGHT IN REACH.
[2024-07-17 06:02] LABS: ALBUMIN/GLOBULIN RATIO 0.21 (1.1-2.4); BILIRUBIN, TOTAL 0.2 ng/dL (0.2-1.0); BUN/CREATININE RATIO 15.33 (6.0-28.6); CALCIUM 7.8 mg/dL (8.5-10.1); CREATININE, SERUM 1.5 mg/dL (0.55-1.02); PROTEIN, TOTAL 5.8 g/dL (6.4-8.2)
--- NOTE | 2024-07-17 07:06 | NUR ---
REPORT RECEIVED FROM CASING SEWER GREG ALVARADO. PATIENT IS LYING IN BED WITH EYES CLOSED AND RESPIRATIONS ARE EVEN AND UNLABORED. TV IS ON. CALL LIGHT AND PERSONAL BELONGINGS ARE WITHIN REACH.
--- NOTE | 2024-07-17 08:04 | NUR ---
NEW BACK OF IVF HANGING. NO OTHER NEEDS AT THIS TIME.
--- NOTE | 2024-07-17 08:42 | NUR ---
Board has been updated and call light has been placed within reach
[2024-07-17] MEDS ORDERED: POLYETHYLENE GLYCOL 3350 1 PACKET PO SCH (09:00)
[2024-07-17] MEDS ORDERED: MAGNESIUM SULFATE 2 GM/50 ML BAG IV SCH (09:00)
[2024-07-17] MEDS ORDERED: SENNOSIDES/DOCUSATE 1 EA TAB PO SCH (09:00)
--- NOTE | 2024-07-17 09:15 | NUR ---
MEDICATIONS ADMINISTERED PER THE EMAR. VITAL SIGNS TAKEN. PATIENT VERY FRUSTRATED WITH THE AMOUNT OF COFFEE AND THE BREAKFAST SHE RECEIVED. NEW CUP OF COFFEE GIVEN TO THE PATIENT. RN OFFERED TO ORDER SOMETHING ELSE FOR BREAKFAST. PATIENT STATED "NO". PATIENT STATED NO FURTHER NEEDS AT THIS TIME. CALL LIGHT AND PERSONAL BELONGINGS ARE WITHIN REACH.
[2024-07-17] MEDS ORDERED: SODIUM HYPOCHLORITE 0.5% 480 ML BTL MISC SCH (10:30)
--- NOTE | 2024-07-17 10:30 | NUR ---
FULL ASSESSMENT COMPLETE AND DOCUMENTED IN THE CHART. PATIENT IS ALERT AND ORIENTED TIMES FOUR. WOUND CARE COMPLETE WITH GREG ONEILL. PAKCKING WITH DAKINS SOAKED GAUZE AND PIECE OF GAUZE LYING OVER THE TOP. PATIENT TOLERATED DRESSING CHANGE WELL. OLD PACKING WITH SEROSANGUINEOUS DRAINAGE NOTED. MIRYAM CARE COMPLETE. NEW PUREWICK AND BRIEF IN PLACE. SKIN ASSESSMENT COMPLETE WITH GREG ONEILL. SCATTERED SCABS AND SCATTERED SCARS NOTED ON THE BLE. ABDOMEN WITH MEDIUM SIZED SCAB. PATIENT IS ON A 60 GRAM CARB DIET. BOWEL TONES ARE ACTIVE IN ALL FOUR QUADRANTS. LAST BM WAS 07/12/24 IN THE CHART, ALTHOUGH PATIENT IS UNSURE OF THE EXACT DATE SHE LAST HAD ONE. PATIENT REFUSED BOWEL REGIMEN MEDICATIONS OFFERED. NS IS INFUSING AT 125 ML/HR. MAGNESIUM SULFATE DOSE IS FINISHING. IV DRESSING IS CLEAN, DRY, AND INTACT. PATIENT IS ON 2 L NC. PATIENT WITH CLEAR LUNG IN BILATERAL UPPER LOBES AND IN THE LEFT LOWER LOBE. CRACKLES HEARD IN THE RIGHT LOWER LUNG LOBE. NO COMPLAINTS OF SOB. LEFT SIDED WEAKNESS NOTED AT BASELINE. CARDIAC WITH NORMAL S1 AND S2 ON AUSCULTATION. RADIAL PULSES ARE STRONG BILATERALLY. PATIENT CAPILLARY REFILL IN THE UPPER AND LOWER EXTREMITIES IS LESS THAN 3 SECONDS BILATERALLY. 2+ PITTING EDEMA NOTED IN THE BILATERAL FEET AND ANKLES. PATIENT STATED NO FURTHER NEEDS AT THIS TIME. CALL LIGHT AND PERSONAL BELONGINGS ARE WITHIN REACH.
--- NOTE | 2024-07-17 11:29 | NUR ---
MAGNESIUM SULFATE INFUSION COMPLETE AT THIS TIME. MD IS ROUNDING ON THE PATIENT. CALL LIGHT AND PERSONAL BELONGINGS ARE WITHIN REACH.
[2024-07-17] MEDS ORDERED: ERTAPENEM SODIUM 1 GM in SODIUM CHLORIDE 0.9% 50 ML IV SCH (11:54)
--- NOTE | 2024-07-17 13:03 | NUR ---
PATIENT IS LYING IN BED AND EATING LUNCH AT THIS TIME. TV IS ON. NC IN PLACE. CALL LIGHT AND PERSONAL BELONGINGS ARE WITHIN REACH.
--- NOTE | 2024-07-17 14:31 | NUR ---
PATIENT RATED PAIN 5/10 IN THE LEFT SIDE OF THE GROIN. PATIENT ENCOURAGE TO GET OUT OF BED AND UP IN THE CHAIR. PATIENT EXPRESSED HER BUTTOM HURTING DUE TO BEING IN BED. RN EDUCATED PATIENT ABOUT GETTING OUT OF BED BEFORE DINNER. PATIENT AGREED. IV SITE FLUSHED WITH 10 ML NORMAL SALINE. IV DRESSING IS CLEAN, DRY, AND INTACT. LEAH ANDERSON IS IN THE ROOM AND DOING THE VITAL SIGNS AND INTAKE AND OUTPUT. PATIENT STATED NO FURTHER NEEDS AT THIS TIME. CALL LIGHT AND PERSONAL BELONGINGS ARE WITHIN REACH.
--- NOTE | 2024-07-17 15:20 | NUR ---
PATIENT TRANSFERRED BY SBA WITH LINE AND TUBE MANAGEMENT. PATIENT DID VERY WELL. PATIENT WITH WAFFLE OVERLAY ON THE CHAIR AND THE BED. PATIENT EXPRESSED FRUSTRATION REGARDING THE WAFFLE OVERLAY. PATIENT EDUCATED ON THE IMPORTANCE OF PREVENTING SKIN BREAKDOWN AND PRESSURE INJURIES. PATIENT DID NOT RESPOND. PATIENT UPSET ABOUT SITTING IN THE CHAIR AND SHE SAID THAT CAUSES MORE PAIN. RN STATED SHE WOULD GET HER MORE PAIN MEDICATIONS. BED LINENS CHANGED. PATIENT STATED NO FURTHER NEEDS AT THIS TIME. TV IS ON. CALL LIGHT AND PERSONAL BELONGINGS ARE WITHIN REACH.
--- NOTE | 2024-07-17 16:18 | NUR ---
PT REQUESTING TO REMOVE HER OXYGEN FOR COMFORT. PT UP IN RECLINER COLOURING, OXYGEN REMOVED AT THIS TIME. NO OTHER REQUESTS, CALL LIGHT IN REACH.
--- NOTE | 2024-07-17 16:36 | NUR ---
PATIENT IS SITTING UPRIGHT IN THE CHAIR CHAIR LISTENING TO MUSIC AND COLORING. PATIENT WITH TV ON. PATIENT STATED NO FURTHER NEEDS AT THIS TIME. CALL LIGHT AND PERSONAL BELONGINGS ARE WITHIN REACH.
--- NOTE | 2024-07-17 18:25 | NUR ---
PATIENT IS SITTING UPRIGHT IN THE CHAIR WITH DINNER TRAY SET UP IN FRONT OF HER. PATIENT IS LOOKING ON THEIR PHONE WITH THE TV. RESPIRATIONS ARE EVEN AND UNLABORED. CALL LIGHT AND PERSONAL BELONGINGS ARE WITHIN REACH.
--- NOTE | 2024-07-17 19:15 | NUR ---
REPORT RECEIVED FROM DAY SHIFT RN. PT SITTING IN RECLINER WITH EYES CLOSED. RESPIRATIONS EVEN. WHITE BOARD UPDATED. CALL LIGHT IN REACH.
--- NOTE | 2024-07-17 21:40 | NUR ---
PT ASSISTED TO BSC TO VOID WITH 1PA AND CANE. STAFF ASSIST WITH MIRYAM CARE. BACK TO BED, JOY WELL. GAIT STEADY. VS AND I&O OBTAINED. SCHEDULED MEDS ADMIN PER EMAR. PRN FOR 12/29 LEFT GROIN PAIN ADMIN PER EMAR. IV IN LEFT UPPER ARM FLUSHED WITH NS. BLOOD RETURN NOTED. IVF INFUSING PER ORDER. NO FURTHER NEEDS AT THIS TIME. CALL LIGHT IN REACH.
--- NOTE | 2024-07-17 22:33 | NUR ---
LEFT GROIN DRESSING CHANGE COMPLETE PER ORDER. PT JOY WELL. PT STARTED MENSES. MIRYAM CARE DONE AND NEW PUREWICK IN PLACE. PT ABLE TO ASSIT WITH CARES IN BED. EVENING ASSESSMENT COMPLETE. PT DENIES FURTHER NEEDS. CALL LIGHT IN REACH.
[2024-07-18] VITALS (9 sets, daily range): BP systolic 126–153; BP diastolic 7–82
--- NOTE | 2024-07-18 01:11 | NUR ---
IV PUMP ALARMING. ISSUE RESOLVED. PT RESTING IN BED WITH EYES CLOSED. RESPIRATIONS EVEN. CALL LIGHT IN REACH.
--- NOTE | 2024-07-18 04:21 | NUR ---
PT RESTING IN BED WITH EYES CLOSED. RESPIRATIONS EVEN. CALL LIGHT IN REACH.
[2024-07-18 05:41] LABS: BASOPHILS 0.8 % (0-2); EOSINOPHILS 5.7 % (0-6); HEMATOCRIT 25.2 % (35.0-50.0); HEMOGLOBIN 8.5 g/dL (12.0-18.0); LYMPHOCYTES 34.5 % (24-44); MCH 27.6 (27-36); MCHC 33.7 g/dl (30-36); MCV 81.9 fl (81-99); MONOCYTES 7.6 % (0-12); NEUTROPHILS 51.4 % (39-80); PLATELET COUNT 251 K/uL (140-440); RBC 3.08 M/ul (4.3-5.7); RDW 14.9 (10.5-15.0)
[2024-07-18 06:00] LABS: ALBUMIN/GLOBULIN RATIO 0.2 (1.1-2.4); ANION GAP 13.2 (7-21); BILIRUBIN, TOTAL 0.2 ng/dL (0.2-1.0); BUN/CREATININE RATIO 16.43 (6.0-28.6); CREATININE, SERUM 1.46 mg/dL (0.55-1.02); MAGNESIUM 2.3 mg/dL (1.8-2.4); POTASSIUM 4.2 mmol/L (3.5-5.1); PROTEIN, TOTAL 5.9 g/dL (6.4-8.2)
--- NOTE | 2024-07-18 06:30 | NUR ---
SCHEDULED MEDS ADMIN PER EMAR. NEW PUREWICK PLACED AFTER MIRYAM CARE. PT JOY ACTIVITY WELL. VS AND I&O OBTAINED. NO FURTHER NEEDS. CALL LIGHT IN REACH.
--- NOTE | 2024-07-18 07:42 | NUR ---
REPORT RECEIVED FROM GREG ALVARADO. PT RESTING WITH EYES CLOSED.
--- NOTE | 2024-07-18 08:03 | NUR ---
UR CONCURRENT REVIEW: [facility]- MEET GL DAY 2 FOR DISCHARGE, WILL UPDATE MD. AMANDA ZAPATA INPT 07/13/24 @ 1603 ORDER MATCHES REG WILL SEND UPDATED CLINICAL FOR AUTH REVIEW DISCHARGE TO HOME WHEN MEDICALLY READY. 07/20/24
--- NOTE | 2024-07-18 08:30 | NUR ---
INTO SEE PATIENT. EATING BREAKFAST. PATIENT SAID SHE HAD A BAD WEEKEND. PATIENT SAID SHE HAD REFUSED PT OVER THE WEEKEND. NO CASE MANAGEMENT NEEDS AT THIS TIME.
--- NOTE | 2024-07-18 08:44 | NUR ---
PATIENT IN BED AT THIS TIME. DEAN OF [employer] CHARTED PATIENTS BLOOD SUGAR AND NOTIFIED RN. PATIENT DECLINED GETTING INTO CHAIR AT THIS TIME AND STATED "I AM NOT GETTING INTO THE CHAIR UNTIL AFTER LUNCH, I JUST WANT TO LAY IN BED AND JUST BE LEFT ALONE." CALL LIGHT WITHIN REACH, NO FURTHER NEEDS AT THIS TIME.
--- NOTE | 2024-07-18 09:23 | NUR ---
PT SITTING UP IN BED HAVING JUST FINISHED BREAKFAST.WOULD LIKE PAIN MEDS 1/2 HOUR PRIOR TO DRESSING CHANGE. STATES SHE WILL GET IN THE CHAIR AFTER THAT.
--- NOTE | 2024-07-18 10:24 | NUR ---
PATIENT IN BED AT THIS TIME. [employer] CLERK CHARTED VITALS AND I&O'S. CALL LIGHT WITHIN REACH, NO FURTHER NEEDS AT THIS TIME.
--- NOTE | 2024-07-18 10:48 | NUR ---
CHANGED PUREWICK, DRESSING AND BEDDING. PT ASSISTED TO MOVE LEG. REFUSED TO GET OUT OF BED AGAIN. STATES SHE IS TOO PAINFUL AND WANTS TO WAIT UNTIL AFTER LUNCH.
--- NOTE | 2024-07-18 13:26 | NUR ---
PT SITTING UP IN CHAIR EATING LUNCH. STATES SHE IS NOT BIG ON LUNCH.
--- NOTE | 2024-07-18 14:03 | NUR ---
CHART SENT TO [facility] AND KENNEDI AGUIAR. PATIENT STATES [facility] IS TO FAR FROM HOME AND SHE REFUSES TO GO TO [place] AGAIN.
--- NOTE | 2024-07-18 14:36 | NUR ---
PATIENT IN BED AT THIS TIME. CARDROOM WORKER CHARTED VITALS AND I&O'S. CALL LIGHT WITHIN REACH, NO FURTHER NEEDS AT THIS TIME.
--- NOTE | 2024-07-18 14:49 | NUR ---
PT NOT AVAILABLE FOR VISIT. PROVIDED PRAYER.
--- NOTE | 2024-07-18 16:14 | NUR ---
NEW BAG OF IVF INFUSING.
--- NOTE | 2024-07-18 16:24 | NUR ---
PATIENT GIVEN TYLENOL FOR 5/10 MENSTRUAL CRAMP PAIN.
--- NOTE | 2024-07-18 17:25 | NUR ---
PT HAVING COPIUS AMTS URINE OUTPUT. CALLED EDUARDO CARDOSO ORDERED.
--- NOTE | 2024-07-18 18:10 | NUR ---
PATIENT UP IN CHAIR STILL AT THIS TIME. VISITOR IN ROOM. VITAL;S AND I&O'S DONE AND CHARTED. CALL LIGHT IN REACH. NO FURTHER NEEDS AT THIS TIME.
--- NOTE | 2024-07-18 19:36 | NUR ---
REPORT RECEIVED FROM DAY SHIFT RN. PT BACK TO BED FROM [facility] AFTER BM AND VOID. STAFF ASSIST WITH MIRYAM CARE. ASSISTED TO REPOSITION IN BED. NO FURTHER NEEDS. WHITE BOARD UPDATED. CALL LIGHT IN REACH.
--- NOTE | 2024-07-18 21:39 | NUR ---
PT AWAKE IN BED. VS AND I&O OBTAINED. PT REPORTS LEFT GROIN PAIN 12/29. PRN FOR PAIN ADMIN PER EMAR. NO FURTHER NEEDS AT THIS TIME. CALL LIGHT IN REACH.
--- NOTE | 2024-07-18 23:10 | NUR ---
DRESSING CHANGE COMPLETE PER ORDER. PT JOY WELL. NEW PUREWICK PLACED AFTER MIRYAM CARE. ICE CHIPS PROVIDED. NO FURTHER NEEDS.
[2024-07-19] VITALS (9 sets, daily range): BP systolic 142–153; BP diastolic 74–85
--- NOTE | 2024-07-19 00:33 | NUR ---
PT RESTING IN BED WITH EYES CLOSED. RESPIRATIONS EVEN. CALL LIGHT IN REACH.
--- NOTE | 2024-07-19 02:56 | NUR ---
PT RESTING IN BED WITH EYES CLOSED. RESPIRATIONS EVEN. CALL LIGHT IN REACH.
--- NOTE | 2024-07-19 04:43 | NUR ---
PT IN BED RESTING WITH EYES CLOSED. RESPIRATIONS EVEN. CALL LIGHT IN REACH.
[2024-07-19 05:40] LABS: BASOPHILS 0.7 % (0-2); EOSINOPHILS 5.1 % (0-6); HEMATOCRIT 26.2 % (35.0-50.0); HEMOGLOBIN 8.7 g/dL (12.0-18.0); LYMPHOCYTES 35.4 % (24-44); MCH 27.1 (27-36); MCHC 33.3 g/dl (30-36); MCV 81.5 fl (81-99); NEUTROPHILS 50.8 % (39-80); PLATELET COUNT 325 K/uL (140-440); RBC 3.22 M/ul (4.3-5.7); RDW 14.8 (10.5-15.0)
[2024-07-19 05:54] LABS: ALBUMIN 1.2 g/dL (3.4-5.0); ALBUMIN/GLOBULIN RATIO 0.24 (1.1-2.4); ANION GAP 12.6 (7-21); BILIRUBIN, TOTAL 0.2 ng/dL (0.2-1.0); BUN/CREATININE RATIO 18.11 (6.0-28.6); CALCIUM 8.4 mg/dL (8.5-10.1); CREATININE, SERUM 1.27 mg/dL (0.55-1.02); POTASSIUM 4.6 mmol/L (3.5-5.1); PROTEIN, TOTAL 6.1 g/dL (6.4-8.2)
--- NOTE | 2024-07-19 05:59 | NUR ---
LAB IN FOR MORNING DRAW. VS AND I&O OBTAINED. NEW PUREWICK PLACED AFTER MIRYAM CARE. PT ABLE TO ASSIST WITH CARES. SCHEDULED MEDS ADMIN PER EMAR. PT DENIES FURTHER NEEDS. CALL LIGHT IN REACH.
--- NOTE | 2024-07-19 07:24 | NUR ---
REPORT RECEIVED FROM JENNY GARZA.
--- NOTE | 2024-07-19 08:36 | NUR ---
PATIENT IN CHAIR AT THIS TIME. PROGRAM REVIEW DIRECTOR CHARTED BLOODSUGAR AND ASSISTED PATIENT FROM BEDSIDE COMMODE TO CHAIR. CALL LIGHT WITHIN REACH, NO FURTHER NEEDS AT THIS TIME.
--- NOTE | 2024-07-19 10:17 | NUR ---
PATIENT IN BED AT THIS TIME. TRACK LABORER PROVIDED PATIENT WITH CATHERTER CARE AND REPOSISTIONED PATIENT. CALL LIGHT WITHIN REACH, NO FURTHER NEEDS AT THIS TIME.
--- NOTE | 2024-07-19 10:20 | NUR ---
PT NOT AVAILABLE FOR VISIT. PROVIDED PRAYER.
--- NOTE | 2024-07-19 10:21 | NUR ---
PATIENT IN BED AT THIS TIME. COTTON BAG CLIPPER CHARTED VITALS AND I&O'S. CALL LIGHT WITHIN REACH, NO FURTHER NEEDS AT THIS TIME.
--- NOTE | 2024-07-19 10:29 | NUR ---
PT ASSISTED BACK TO BED FROM CHAIR WITH 1 PA FWW, TOLERATED WELL. PT GIVEN PAIN MED ORDERED FOR PAIN TO L) GROIN 12/29. CALL LIGHT WITHIN REACH.
--- NOTE | 2024-07-19 11:00 | NUR ---
Received a call [facility]. They will not accept this pt as they do not have any beds.
--- NOTE | 2024-07-19 11:15 | NUR ---
DR WADE IN TO SEE PT. DR WADE ASKS FOR PT TO TRIAL ROOM AIR AND HAVE CONTINUOUS PULSE OXIMETRY. FLORENCE BERNARD COMPLETE PER ORDER, PT TOLERATED WELL.
--- NOTE | 2024-07-19 11:30 | NUR ---
PUREWICK PLACED PER PT REQUEST.
--- NOTE | 2024-07-19 11:30 | NUR ---
PT ON ROOM AIR WITH O2 SAT 97%.
--- NOTE | 2024-07-19 11:40 | NUR ---
Received a message from [facility]. They did not accept this pt. I called [facility] and I am waiting for a return call. I spoke with PT/OT. They have worked with this pt and she can function at home. She has 14 steps and pt states she cannot walk up the steps. I will visit with her when I hear from [facility]. Per Dr. Su, pt is medically ready for dc.
--- NOTE | 2024-07-19 13:50 | NUR ---
PATIENT IN BED AT THIS TIME. JAVA SYBASE DEVELOPER CHARTED VITAL AND I&O'S. CALL LIGHT WITHIN REACH, NO FURTHER NEEDS AT THIS TIME.
--- NOTE | 2024-07-19 14:00 | NUR ---
Spoke with Alma at [facility]. They are also declining this pt as she has refused to work with PT, but is able to walk in the room. They do not feel she would qualify per Medicare.
--- NOTE | 2024-07-19 14:30 | NUR ---
In and spoke with Heather. Updated everyone has declined. She becomes upset threatening to renee the hospital, calling the therapist the [facility], and asking for her Dr. She states she doesn't know who Dr. Su is and wants the Dr. that was here Thursday. I let her know Dr. Boo is gone and Dr. Su is on this week. He has the final say. Pt refusing to go home as she states he is at work through the night and she does not have keys to get into the home. She is yelling and stating everyone is giving her different stories and, "I will not go home today". I let her know again, I cannot speak for the Dr. I will call Dr. Su and check if he is ok with her staying tonight and discharging in the AM. She states she will change her mind and would go to [facility]. She asks I call them. I called [facility] and spoke with Tawnya. She states pt left ama and they will not accept her back. I returned to update pt and she states, "I know they won't take me because of the way I left". I asked her if she knew this why she asked me to call. Pt just laughted. Pt is on the phone and has a raised phone. She states she is speaking with her spouse. He is on speaker and states he will be there from 10-[address] pm[address] does not drive. I let him know we can send pt by taxi or [employer] van. When she gets home they can call EMS for a courtesy lift. Pt states in the past she was charged $5000 for this. I let her know that would have been for an EMS transport, ot a courtesy lift. They are 2 different things. Pt then stating she can get up her stairs as she was doing so prior to admission. She feels she is not ready for dc as she cont. to have pain. I again let her know, the DrIvana feels she is medically ready for dc and we will plan for DC tomorrow around 10.
--- NOTE | 2024-07-19 15:20 | NUR ---
PT RESTING IN BED, NO REQUESTS AT THIS TIME. CALL LIGHT WITHIN REACH.
--- NOTE | 2024-07-19 16:00 | NUR ---
OT IN WOKING WITH PT.
--- NOTE | 2024-07-19 16:00 | NUR ---
Notified by OT pt would like a walker. Returned to pts room at 1700 and discussed walker and HH. Pt would like HH and would benefit from PT/OT/SN/SUPERVISOR SCREEN MAKING. Pt now stating when she gets into her home she does not want to leave as it is physically very hard on her. Dr. Su updated. Pt would like to use [employer] for her walker. Plan remains for pt to dc tomorrow and if she is unable to walk the stair into her home, she will call EMS for a courtesy lift. Her spouse will be there to assist. Fourteen you Daughterhas been doing pts dressing changes. Will see if HH can assist. Will fu in the am.
--- NOTE | 2024-07-19 17:13 | NUR ---
PATIENT IN BED AT THIS TIME. SENIOR DATA DEVELOPER CHARTED PATIETNS BLOOD SUGAR. CALL LIGHT WITHIN REACH, NO FURTHER NEEDS AT THIS TIME.
--- NOTE | 2024-07-19 17:34 | NUR ---
PT SITTING UP IN CHAIR EATING DINNER. NO REQUESTS AT THIS TIME. CALL LIGHT WITHIN REACH.
--- NOTE | 2024-07-19 18:42 | NUR ---
PATIENT IN BED AT THIS TIME. SENIOR ABAP DEVELOPER CHARTED VITALS AND I&O'S. SENIOR ABAP DEVELOPER ALSO CHANGED PATIENTS PUREWICK. CALL LIGHT WITHIN REACH, NO FURTHER NEEDS AT THIS TIME.
--- NOTE | 2024-07-19 19:36 | NUR ---
REPORT RECEIVED FROM DAY SHIFT RN. PT SITTING IN RECLINER ALERT AND ORIENTED. DENIES NEEDS. WHITE BOARD UPDATED. CALL LIGHT IN REACH.
--- NOTE | 2024-07-19 19:49 | NUR ---
ANSWERED CALL LIGHT PATIENT NEEDED TO USE COMMODE. ASSISTED PT TO COMMODE. CALL LIGHT IN REACH. PATIENT TO CALL WHEN READY TO GET INTO BED.
--- NOTE | 2024-07-19 20:33 | NUR ---
ASSISTED PT TO BED WITH FWW FROM [facility]. PLACED NEW BRIEF AND PUREWICK ON PATIENT. PATIENT HAD NO OTHER NEEDS AT THIS TIME. CALL LIGHT IN REACH. VITALS DONE. I&O'S DONE.
--- NOTE | 2024-07-19 21:05 | NUR ---
EVENING ASSESSMENT COMPLETE. SCHEDULED MEDS ADMIN PER EMAR. PT REPORTS LEFT GROIN PAIN 12/29. PRN FOR PAIN ADMIN PER EMAR. PT DENIES NAUSEA. GENERALIZED EDEMA NOTED. PUREWICK PATENT WITH QS URINE. FRESH WATER AND ICE CHIPS PROVIDED PER REQUEST. NO FURTHER NEEDS. CALL LIGHT IN REACH.
--- NOTE | 2024-07-19 23:30 | NUR ---
PATIENT CALLED. PATIENT WANTING TO HAVE HER ATTENDS CHANGE STATING IT IS WET. WIPED CLEAN. FRESHE ATTENDS PLACED. PATIENT BOOSTED UP IN BED. SCD'S ON. NEW PUREWICK PLACED. EMPTIED CANISTER.
--- NOTE | 2024-07-20 01:45 | NUR ---
PT RESTING IN BED WITH EYES CLOSED. RESPIRATIONS EVEN. CALL LIGHT IN REACH.
--- NOTE | 2024-07-20 03:20 | NUR ---
PT RESTING IN BED WITH EYES CLOSED. RESPIRATIONS EVEN. SpO2 95% ON RA. HR 60'S.
[2024-07-20 05:46] VITALS: BP 147/74
--- NOTE | 2024-07-20 05:54 | NUR ---
PT RESTING WITH EYES CLOSED. AWAKENS EASILY. VS AND I&O OBTAINED. SCHEDULED MEDS ADMIN PER EMAR. PT DENIES NEEDS. CALL LIGHT IN REACH.
--- NOTE | 2024-07-20 07:25 | NUR ---
PT RESTING IN BED WITH EYES CLOSED AND RESPIRATIONS EVEN AND UNLABORERD. CALL LIGHT WITHIN REACH.
--- NOTE | 2024-07-20 08:55 | NUR ---
PT RESTING IN BED EATING BREAKFAST AND WATCHING TV. NO REQUESTS AT THIS TIME. CALL LIGHT WITHIN REACH.
[2024-07-20] MEDS ORDERED: TRIMETHOPRIM/SULFAMETHOXAZOLE 1 EA TAB PO SCH (09:00)
[2024-07-20 09:49] VITALS: BP 159/72
--- NOTE | 2024-07-20 09:50 | NUR ---
Spoke with Heather and discussed dc today. Gave her the phone number for [facility] to call when she arrives for a courtesy lift, updated I faxed her chart to [facility] for PT/OT/SN/SERVICE CENTER REPRESENTATIVE. Pt did received the pt choice letter and chose [facility], I faxed her chart and order to [facility] for a walker. She is aware they have 48 hrs to deliver the walker. I encouraged her to answer her phone. will call to set an appt. I did call them this morning. Pts past referral, she did not answer her phone and they did not see her. She states she always screens her calls and will cont. to do so. I let her know, she must answer or call them back if she wants Therapy and wound care.
--- NOTE | 2024-07-20 10:05 | NUR ---
DRSG CHANGED TO L) GROIN ORDERED. PT TOLERATED WELL.
[2024-07-20] MEDS ORDERED: SULFAMETHOXAZO1 EAC1 PO (10:07)
[2024-07-20 10:30] VITALS: BP 159/72
== END 2024-07-20 11:35 | disposition home health service (06) | DRG 603 ==
LOC: ED 12:15 → MS 16:11
PROVIDERS: Colon & Rectal Surgery; Emergency Medicine; ADMIT Family Medicine; ATTEND Student in an Organized Health Care Education/Training Program
PROC: 0HDJXZZ Extraction of Left Upper Leg Skin, External Approach (ICD-10-PCS; principal; 2024-07-15 09:45)
DX: L02.214 Cutaneous abscess of groin (principal); N76.4 Abscess of vulva; N17.9 Acute kidney failure, unspecified; N39.0 Urinary tract infection, site not specified; Z16.12 Extended spectrum beta lactamase (ESBL) resistance; Z68.41 Body mass index [BMI] 40.0-44.9, adult; B96.20 Unspecified Escherichia coli [E. coli] as the cause of diseases classified elsewhere; R07.9 Chest pain, unspecified; E03.9 Hypothyroidism, unspecified; E11.40 Type 2 diabetes mellitus with diabetic neuropathy, unspecified; E78.5 Hyperlipidemia, unspecified; G47.33 Obstructive sleep apnea (adult) (pediatric); J44.89 Other specified chronic obstructive pulmonary disease; I50.9 Heart failure, unspecified; E66.01 Morbid (severe) obesity due to excess calories; I25.10 Atherosclerotic heart disease of native coronary artery without angina pectoris; F17.290 Nicotine dependence, other tobacco product, uncomplicated; I11.0 Hypertensive heart disease with heart failure; I25.2 Old myocardial infarction; Z79.4 Long term (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; Z88.8 Allergy status to other drugs, medicaments and biological substances; Z91.040 Latex allergy status; Z86.14 Personal history of Methicillin resistant Staphylococcus aureus infection; Z86.73 Personal history of transient ischemic attack (TIA), and cerebral infarction without residual deficits; Z79.890 Hormone replacement therapy; Z95.5 Presence of coronary angioplasty implant and graft
CPT/HCPCS: 00400; 36415; 80048; 80053; 81001; 82553; 83605; 83735; 84100; 84484; 84703; 85025; 87040; 87070; 87075; 87077; 87088; 87186; 87205; 93005; 93010; 94667; 94668; 94760; 94762; 94799; 97161; 97164; 97165; 97530; 97535; A9270; J0131; J0330; J0692; J0878; J1335; J1815; J2003; J2250; J2405; J2704; J3010; J3475; J3490; J7030

== ENCOUNTER 2024-10-12 09:16 | Observation (INO) | payer OTHER ==
[~2024-10-12] VITALS: Ht 167.6 cm; Wt 124.3 kg
[~2024-10-12 09:16] MED LIST changes: +FUROSEMIDE20 MG PO; +SULFAMETHOXAZO1 EAC1 PO
[2024-10-12] MEDS ORDERED: SODIUM CHLORIDE 0.9% 1,000 ML IV PRN (10:00)
[2024-10-12 10:11] LABS: BASOPHILS 0.7 % (0-2); BILIRUBIN, URINE NEGATIVE (negative); BLOOD/HGB, URINE MODERATE (Negative); HEMATOCRIT 33.5 % (35.0-50.0); HEMOGLOBIN 10.9 g/dL (12.0-18.0); KETONE, URINE NEGATIVE (Negative); LEUK ESTERASE, URINE NEGATIVE (negative); LYMPHOCYTES 17.3 % (24-44); MCH 25.2 (27-36); MCHC 32.5 g/dl (30-36); MCV 77.4 fl (81-99); MONOCYTES 6.5 % (0-12); NEUTROPHILS 73.5 % (39-80); NITRITE, URINE NEGATIVE (negative); PLATELET COUNT 414 K/uL (140-440); RBC 4.33 M/ul (4.3-5.7); RDW 15.5 (10.5-15.0)
[2024-10-12 10:18] LABS: BACTERIA, URINE RARE /hpf (negative); CASTS, URINE NONE SEEN \\lpf; CRYSTALS, URINE NONE SEEN (0-1+); EPITHELIAL CELLS, URINE SQUAMOUS 2+ /lpf (0-1+)
[2024-10-12 10:19] LABS: COLLECTION TYPE, URINE CLEAN CATCH; REFLEX CULTURE, URINE No (No)
[2024-10-12 10:26] LABS: ALBUMIN 1.5 g/dL (3.4-5.0); ALBUMIN/GLOBULIN RATIO 0.24 (1.1-2.4); ANION GAP 11.9 (7-21); BILIRUBIN, TOTAL 0.5 mg/dL (0.2-1.0); BUN/CREATININE RATIO 15.09 (6.0-28.6); CREATININE, SERUM 2.12 mg/dL (0.55-1.02); POTASSIUM 3.9 mmol/L (3.5-5.1); PROTEIN, TOTAL 7.7 g/dL (6.4-8.2)
[2024-10-12] MEDS ORDERED: MEROPENEM 1,000 MG in SODIUM CHLORIDE 0.9% 100 ML IV ONE (11:15)
[2024-10-12] MEDS ORDERED: HYDROmorphone HCL 1 MG/ML SYR IV PRN (13:45)
[2024-10-12] MEDS ORDERED: LACTATED RINGER'S 1,000 ML IV SCH ×2 (13:45→14:30)
[2024-10-12] MEDS ORDERED: ondansetron HCL 4 MG/2 ML VIAL IV PRN ×3 (13:45→17:00)
[2024-10-12] MEDS ORDERED: SEVOFLURANE 250 ML BTL INH ONE (14:11)
[2024-10-12] MEDS ORDERED: HEParin SOD (PORCINE) 5,000 UNIT/ML SYR ONE (14:17)
[2024-10-12] MEDS ORDERED: FAMOTIDINE 20 MG/ 2 ML VIAL ONE (14:17)
[2024-10-12] MEDS ORDERED: MEROPENEM 1,000 MG in SODIUM CHLORIDE 0.9% 100 ML IV SCH (14:30)
[2024-10-12] MEDS ORDERED: KETOROLAC TROMETHAMINE 30 MG/ML VIAL IV PRN ×2 (14:30→17:00)
[2024-10-12] MEDS ORDERED: LACTATED RINGER'S 1,000 ML IV ONE (14:30)
[2024-10-12] MEDS ORDERED: HEParin SOD (PORCINE) 5,000 UNIT/ML SDV SUB-Q ONE (14:30)
[2024-10-12] MEDS ORDERED: FAMOTIDINE 20 MG/ 2 ML VIAL IV ONE (14:30)
[2024-10-12] MEDS ORDERED: FAMOTIDINE 20 MG/ 2 ML VIAL IV SCH (14:32)
[2024-10-12] MEDS ORDERED: propofoL 200 MG/20 ML VIAL ONE (15:04)
[2024-10-12] MEDS ORDERED: LIDOCAINE HCL 2% 5 ML SDV ONE (15:04)
[2024-10-12] MEDS ORDERED: KETAMINE in NS 50 MG/5 ML SYR ONE (15:04)
[2024-10-12] MEDS ORDERED: ACETAMINOPHEN 1,000 MG/100 ML VIAL ONE (15:04)
[2024-10-12] MEDS ORDERED: SODIUM CHLORIDE 0.9% 40 ML IV ONE (15:04)
[2024-10-12] MEDS ORDERED: dexmedeTOMIDine HCl 200 MCG/2 ML VIAL ONE (15:04)
[2024-10-12] MEDS ORDERED: ROCURONIUM BROMIDE 50 MG/5 ML SYR ONE ×2 (15:04→15:36)
[2024-10-12] MEDS ORDERED: ondansetron HCL 4 MG/2 ML VIAL ONE (15:04)
[2024-10-12] MEDS ORDERED: fentaNYL citrate 100 MCG/2 ML VIAL ONE (15:04)
[2024-10-12] MEDS ORDERED: MAGNESIUM SULFATE 1 GM/2 ML VIAL ONE (15:08)
[2024-10-12] MEDS ORDERED: DEXAMETHASONE SOD PHOS 4 MG/ML VIAL ONE (15:20)
[2024-10-12] MEDS ORDERED: ePHEDrine sulfate 50 MG/ML AMP ONE (16:06)
[2024-10-12] MEDS ORDERED: SUGAMMADEX SODIUM 200 MG/2 ML ML ONE (16:24)
[2024-10-12] MEDS ORDERED: fentaNYL citrate 50 MCG/ML SDV IV PRN (17:00)
[2024-10-12] MEDS ORDERED: levoFLOXacin 750 MG TAB PO SCH ×2 (17:00→18:00)
[2024-10-12] MEDS ORDERED: IBLOOD GLUCOSE TEST STRIP 1 EA TEST VI PRN (17:00)
[2024-10-12] MEDS ORDERED: NALOXONE HCL 0.4 MG SYR IV PRN (17:00)
--- NOTE | 2024-10-12 17:00 | NUR ---
10/12/24 1700 Celena Mccain 1644- PT PRESENTS TO PACU, SEMI DUMONT POSITION. NON REACTIVE TO STIMULUS, O2 AT 6L PER MASK, BREATHING EVEN AND NON LABORED. LR INFUSING TO LAC IV. ABD SOFT, NON DISTENDED. STERI STRIPS IN PLACE TO 4 LAP SITES, CDI. ALL MONITORS IN PLACE. 1650- PT WAKES ON OWN, OPENS EYES LOOKING AROUND. REORIENTED TO TIME AND PLACE. PT SHAKES HEAD NO TO NAUSEA, UNABLE TO ANSWER PAIN. PT FALLS BACK TO SLEEP. WILL CONTINUE TO MONITOR. 8- PT WAKES SELF OFF AND ON. NO SIGNS OF DISTRESS. O2 REMOVED AT THIS TIME.
[2024-10-12 17:26] VITALS: BP 142/62
[2024-10-12] MEDS ORDERED: GLUCAGON,HUMAN RECOMBINANT 1 MG/ML VIAL SUB-Q PRN (17:30)
[2024-10-12] MEDS ORDERED: IBLOOD GLUCOSE TEST STRIP 1 EA TEST XX PRN (17:30)
[2024-10-12] MEDS ORDERED: IBUPROFEN 600 MG TAB PO PRN (17:30)
[2024-10-12] MEDS ORDERED: DEXTROSE 5% 1,000 ML IV PRN (17:30)
[2024-10-12] MEDS ORDERED: DEXTROSE 50% 50 ML SYR IV PRN ×2 (17:30)
[2024-10-12] MEDS ORDERED: ACETAMINOPHEN 500 MG TAB PO PRN (17:30)
[2024-10-12] MEDS ORDERED: HYDROCODONE/ACETA 7.5/325 TAB PO PRN (17:30)
[2024-10-12 17:35] VITALS: BP 142/62
--- NOTE | 2024-10-12 18:04 | NUR ---
Patient arrived to the medical floor from PACU. Patient arrived to unit alert and oriented x3, a bit drowsy, answers questions appropriately. Patient reports tolerable abdominal pain. Vital signs stable, sp02 97% on room air, respirations non labored. Abdominal lap sites s4, closed/dry with steri strips. Patient has several chronic wounds noted-see assessment charting a pics on chart. Patient oriented to room and call light. Personal supplies and call light within reach.
[2024-10-12] MEDS ORDERED: IBLOOD GLUCOSE TEST STRIP 1 EA TEST VI SCH ×2 (18:15→20:00)
[2024-10-12] MEDS ORDERED: Insulin Regular, Human 100 UNIT/ML ML SUB-Q SCH ×2 (18:15→20:00)
--- NOTE | 2024-10-12 18:19 | NUR ---
GREG GUTIERREZ IN ROOM DOING ASSESSMENT. BLOOD SUGAR WAS CHECKED. NO CARES WERE REQUESTED. CALL LIGHT AND PERSONAL ITEMS ARE WITHIN REACH.
[2024-10-12 18:21] VITALS: BP 131/65
--- NOTE | 2024-10-12 19:23 | NUR ---
Admin dilaudid 0.5mg iv at this time for reports of 7/10 abdominal pain.
[2024-10-12 19:33] VITALS: BP 131/56
--- NOTE | 2024-10-12 19:45 | NUR ---
REPORT RECEIVED FROM DAY SHIFT RN. PATIENT RESTING IN BED. DENIES NEEDS AT THIS TIME. CALL LIGHT IN REACH.
--- NOTE | 2024-10-12 20:34 | NUR ---
RT SPOKE TO WILBERT AND SHE IS WILLING TO TRY A BIPAP TONIGHT RT IS CERTAIN THAT WILBERT WOULD BENEFIT FROM A HOME BIPAP.
[2024-10-12 20:41] VITALS: BP 142/73
[2024-10-12 20:43] VITALS: BP 142/73
--- NOTE | 2024-10-12 20:45 | NUR ---
PATIENT RESTING IN BED. VS AND I&Os OBTAINED AND RECORDED. PATIENT DENIES FURTHER NEEDS AT THIS TIME. BED ALARM ON. CPOX IN PLACE. PATIENT EDUCATED TO ROOM AND CALL LIGHT. CALL LIGHT IN REACH. RT REMAINS IN ROOM.
[2024-10-12] MEDS ORDERED: HEParin SOD (PORCINE) 5,000 UNIT/ML SDV SUB-Q SCH (21:00)
--- NOTE | 2024-10-12 21:10 | NUR ---
THIS RN ATTEMPTED TO CALL MD REGARDING PATIENTS BS READING. MD DID NOT ANSWER AT THIS TIME.
--- NOTE | 2024-10-12 21:33 | NUR ---
SS INSULIN ADMINISTERED PER ORDER. SCHEDULED MEDICATION ADMINISTERED. ICE CHIPS PROVIDED. STERI STRIPS C/D/I WITH MINIMAL DRY DRAINAGE. PATIENT DENIES PAIN AT THIS TIME. NO FURTHER NEEDS. CALL LIGHT IN REACH.
--- NOTE | 2024-10-12 21:57 | NUR ---
CPAP +10 S/U FOR WILBERT WITH A 15 MINUTE RAMP THAT BEGINS AT CPAP +6, WITH AN AIRFIT FFM UNDER THE NOSE OVER THE MOUTH. WILBERT TO CONTACT RN WHEN SHE IS READY TO GO TO SLEEP SO THAT RN CAN CALL RT.
--- NOTE | 2024-10-12 22:37 | NUR ---
PATIENT STATES "MY PUREWICK MUST NOT BE WORKING I THINK THAT I AM WET". NEW BREIF, CHIDI AND PUREWICK PLACED AFTER MIRYAM CARE PROVIDED. BARRIER CREAM APPLIED TO SACRAL AREA. PATENT REPOSTIONED IN BED. BILAT HEELS ELEVATED OFF BED WITH PILLOW. SCDs IN PLACE. PATIENT DENIES FURTHER NEEDS AT THIS TIME. CALL LIGHT IN REACH.
[2024-10-13] VITALS (12 sets, daily range): BP systolic 133–170; BP diastolic 62–78
--- NOTE | 2024-10-13 00:07 | NUR ---
PATIENT RESTING IN BED WATCHING TV. RESPIRATIONS EVEN AND UNLABORED. DENIES PAIN. CALL LIGHT IN REACH.
[2024-10-13] MEDS ORDERED: ALBUTEROL SULFATE 0.083% 3 ML VIAL INH PRN (01:15)
--- NOTE | 2024-10-13 01:45 | NUR ---
UNIONMELT OPERATOR OBTAINED VITALS AND I&O. PUREWICK CANNISTER EMPTIED. PT REQUESTING PAIN MEDS. PRIMARY RN NOTIFED. PT STATES NO FURTHER NEEDS AT THIS TIME. CALL LIGHT WITHIN REACH.
--- NOTE | 2024-10-13 02:58 | NUR ---
ROUNDING ON PATIENT. PATIENT REQUESTING 10/10 ABD PAIN. PRN PAIN MEDICATION ADMINISTERED. ASSESSMENT COMPLETE. X4 ABD DRESSINGS C/D/I WITH MINIMAL DRY DRAINAGE. PATIENT HAS NO FURTHER NEEDS AT THIS TIME. CALL LIGHT IN REACH.
--- NOTE | 2024-10-13 05:10 | NUR ---
pt CALLED TO HAVE HER SOCKS REMOVED. VITAL SIGNS DONE. THIS RN AND INSPECTOR WATCH PARTS IN TO ASSIST pt. pt DENIES ANY OTHER NEEDS AT THIS TIME. CALL LIGHT WITHIN REACH. PT SOCKS REMOVED.
--- NOTE | 2024-10-13 07:05 | NUR ---
REPORT RECEIVED FROM GREG RODRIGEZ. PATIENT IS REQUESTING A NEW REMOTE AND PAIN MEDICATION. PATIENT IS IN BED WITH CPOX AT BEDSIDE. NO OTHER REQUESTS, CALL LIGHT AND PERSONAL BELONGINGS IN REACH.
[2024-10-13] MEDS ORDERED: FAMOTIDINE 20 MG TAB PO SCH (09:00)
[2024-10-13] MEDS ORDERED: FAMOTIDINE 20 MG/ 2 ML VIAL IV SCH (09:00)
--- NOTE | 2024-10-13 09:04 | NUR ---
MEDICATION ADMINISTERED, SEE MAR. ASSESSMENT COMPLETE. PATIENT IS RESTING IN BED AFTER EATING BREAKFAST. SCDs REMOVED PER PATIENT'S REQUEST. PATIENT'S ABDOMEN IS MILDLY DISTENDED, PATIENT COMPLAINS OF PAIN AND FEELING "FULL OF AIR". PATIENT EDUCATED ON SURGERY, VERBALIZES UNDERSTANDING. ABDOMEN IS SOFT AND TENDER THROUGHOUT, 4 LAP SITES NOTED, 3 ARE CLEAN AND DRY WITH STERI-STRIPS, THE UMBILICAL LAP SITE IS NOTED TO HAVE A SCANT AMOUNT OF DRIED SEROSANGUINOUS DRAINAGE WITH STERI-STRIPS IN PLACE. BOWEL TONES ARE ACTIVE IN ALL QUADRANTS, PATIENT REPORTS HAVING FLATULENCE. IV INFUSING TO L AC WNL. PATIENT RECEIVES PHONE CALL AND IS CURRENTLY ON THE PHONE. NO OTHER REQUESTS, CALL LIGHT AND PERSONAL BELONGINGS IN REACH.
--- NOTE | 2024-10-13 10:04 | NUR ---
PATIENT IS REFUSING TO GET OUT OF BED AT THIS TIME, REPORTS GETTING OUT OF BED WILL ONLY MAKE HER NAUSEATED. PATIENT STATES SHE WILL TRY AFTER LUNCH. PATIENT'S URINE NOTED TO BE REDDENED IN COLOUR. PATIENT CURRENTLY WITHOUT DYSURIA, URGENCY, OR FREQUENCY. SHE DOES REPORT SHE MAY BE ON HER PERIOD AT THIS TIME. LEAH CARPIO PRESENT IN ROOM TO CHANGE PATIENT'S PUREWICK. PATIENT HAS NO OTHER REQUESTS AT THIS TIME, CALL LIGHT AND PERSONAL BELONGINGS IN REACH.
--- NOTE | 2024-10-13 10:06 | NUR ---
UR CLINICAL REVIEW: ATTEMPT [facility], STATES ENCOUNTER IS INACTIVE MEETS [facility] CRITERIA FOR APPENDICITIS WITHOUT PERFORATION SURGICAL INTERVENTION NEEDED OBS 10/12/24 @ 1432 ORDER MATCHES REG AUTH NOT REQUIRED FOR OBS PER MEDICAID RULE PLAN TO RETURN TO [facility] WHEN MEDICALLY CLEARED 10/15/24
--- NOTE | 2024-10-13 10:24 | NUR ---
2PA TO CHANGE BRIEF AND PUREWICK. PATIENT'S LEFT LEG WOUND WAS BLEEDING, RN RADHAMES NOTIFIED. PATIENT REFUSED GETTING OUT OF BED BUT AGREED TO GETTING UP AFTER LUNCH. CALL LIGHT AND PERSONAL ITEMS ARE WITHIN REACH. NO OTHER CARES WERE REQUESTED.
--- NOTE | 2024-10-13 11:02 | NUR ---
Spoke with Heather. She cont. to live in an upstairs apartment with multiple steps. She states she is unable to leave the home as EMS will no longer provide courtesy lifts. I asked about her therapy with HH, but she states they ended her therapy. She states she is able to sit and scoot down the steps. She uses [facility] for transport. She would like a wc as one of her state paid cg felt this would help with her mild wounds on her pubis. Pt was hospitalized for this in the past and wounds have essentially healed. I discussed with pt we ask the , but I doubt he will order a wc as this would decrease her mobility further. She then asks if she can have a walker with a seat. I let her know I will ask Dr. Curry. She then states he plans on her staying 10 days. I told her I didn't think so as most people dc in 1-2 days. Pt would like to start PT again and I will also ask him about this. Pt cont. to use [employer] for utilities and has food stamps. Home when cleared medically be
[2024-10-13] MEDS ORDERED: MULTI VITAMIN1 EACH PO (11:45)
--- NOTE | 2024-10-13 11:46 | NUR ---
MED REC COMPLETE
[2024-10-13] MEDS ORDERED: LEVOTHYROXINE SODIUM 25 MCG TAB PO SCH (11:56)
[2024-10-13] MEDS ORDERED: FUROSEMIDE 20 MG TAB PO SCH (11:56)
[2024-10-13] MEDS ORDERED: METOPROLOL TARTRATE 25 MG TAB PO SCH (11:56)
[2024-10-13] MEDS ORDERED: ALBUTEROL SULFATE 8 GM INH INH PRN (12:00)
[2024-10-13] MEDS ORDERED: INHALER, ASSIST DEVICES 1 EACH SPACER MISC ONE (12:00)
[2024-10-13] MEDS ORDERED: NITROGLYCERIN 0.4 MG SUBL SL PRN (12:00)
[2024-10-13] MEDS ORDERED: OXYCODONE/APAP 7.5/325 TAB PO PRN (12:00)
[2024-10-13 12:12] LABS: ANION GAP 10.8 (7-21); BUN/CREATININE RATIO 17.22 (6.0-28.6); CALCIUM 8.1 mg/dL (8.5-10.1); CREATININE, SERUM 1.8 mg/dL (0.55-1.02); POTASSIUM 3.8 mmol/L (3.5-5.1)
[2024-10-13] MEDS ORDERED: INSULIN GLARGINE-YFGN 100 UNIT/ML ML SUB-Q SCH (12:30)
--- NOTE | 2024-10-13 14:41 | NUR ---
PATIENTLY ADAMENTALLY REFUSED TO GET UP WHILE THEIR MOM WAS IN THE ROOM VISITING. RN RADHAMES NOTIFIED. THIS IS THE SECOND TIME PATIENT HAS REFUSED TO GET UP THIS SHIFT
--- NOTE | 2024-10-13 15:22 | OR ---
[facility] [address], [place] [address] Signed DATE OF OPERATION: 10/12/2024 SURGEON: Bhargav Gomez MD PREOPERATIVE DIAGNOSES: 1. Acute appendicitis. 2. Morbid obesity, body mass index greater than 44. 3. Concurrent urinary tract infection. POSTOPERATIVE DIAGNOSES: Acute suppurative appendicitis. PROCEDURES: 1. Laparoscopy with lysis of intraabdominal adhesions (extensive). 2. Laparoscopic appendectomy, prolonged, complicated, difficult. ANESTHESIA: General endotracheal, Albin Armenta, MARKETING STRATEGIST and local 10 mL of 0.25% Marcaine with epinephrine. INDICATION: This morbidly obese 44-year-old woman has numerous medical problems. She is currently at the senior living locally and developed right abdominal pain earlier today. She was evaluated by Dr. Bean and found to have urinary tract infection, which is recurrent as well as on CT scan acute appendicitis. The patient has numerous medical problems including prior intraabdominal surgery including hernia repair at the umbilicus. She has been given intravenous fluids, IV antibiotics and now to undergo appendectomy preferably by a laparoscopic approach. The risk of bleeding, infection, need for open procedure and need for other indicated procedures were reviewed in detail. She understands and wished to proceed. FINDINGS: It was challenging getting through the abdominal wall due to the thickness of the abdominal wall pannus as well as scarring of the abdominal wall, but it was accomplished safely. Lysis of adhesions for small bowel and omental adhesion to the anterior abdominal wall was required. Ultimately, the appendix was identified and found to be acutely inflamed and suppurative, but not perforated. Appendectomy was performed completely. The operation was prolonged, complicated, and difficult on the basis of her adhesions, obesity and other factors, but was accomplished safely and completely. Electronically Signed By: BHARGAV GOMEZ MD 10/13/24 1522 PATIENT NAME: WILBERT KUO OPERATIVE REPORT DATE OF : 76 REPORT #: [id number] PHYSICIAN: BHARGAV GOMEZ MD PCP: MARK ELDER MD REPORT IS CONFIDENTIAL AND NOT TO BE RELEASED WITHOUT AUTHORIZATION [facility] [address], [place] [address] Signed DESCRIPTION OF PROCEDURE: The patient was brought to the operating room, given a general endotracheal anesthetic. Preoperative antibiotic meropenem had been given. Sequential compression device stocking was used and heparin subcutaneously had been administered. After satisfactory general endotracheal anesthesia, the very large abdominal wall pannus was prepared with a chlorhexidine solution. Excoriation of the underside of the pannus was noted preoperatively and intraoperatively. On that basis. After squaring off the abdomen, an Ioban dressing was applied so as to minimize chances of wound infection otherwise. Once completely draped, a supraumbilical incision was made outside of any previous incision of the abdominal wall of which . Using an open Arlene cannula technique, the abdomen was ultimately entered. Pneumoperitoneum was achieved to a level of 14 mmHg of carbon dioxide gas. Intra-abdominal inspection showed no sign of ascites or carcinomatosis. The liver had fatty infiltration. The appendix was not fully visualized, but inflammatory changes in the cecum were noted. Two separate incisions were required to provide for safe access to the upper abdomen with a 10 mm trocar, but it was accomplished and the camera replaced to that site. A 5 mm right-sided port was placed allowing for lysis of adhesions of bowel loops and omentum that were near the umbilical port site. Once these were freed up, attention was turned towards the appendix itself. The cecum was elevated and the appendix was identified and found to be markedly inflamed and suppurative with a fair amount of fatty tissue around it. Ultimately, a window was created between the appendix and the cecum and using an Endo-PIYUSH stapling device, the base of the appendix was transected. Further dissection allowed for good visualization of the mesentery of the appendix and two separate vascular loads were required to transect that completely. The appendix was then placed in an Endobag and extracted through the infraumbilical port site without problem and opened on the back table. Irrigation was undertaken of the operative sites. There was no sign of bleeding or other problem. The staple lines appeared secure. Excess irrigation fluid was suctioned free. The trocars were removed under direct visualization showing no sign of bleeding. Care was taken for closure of the supraumbilical port site with interrupted 0 Vicryl suture. A 10 mL of 0.25% Marcaine with epinephrine was injected locally. The skin was then closed with interrupted 3-0 Vicryl. Steri-Strips were applied. The patient was ultimately extubated, anticipating transfer from the operating room to recovery room in good condition. Blood loss was minimal. Complications were none. The operation was rather prolonged, complicated and difficult based on her obesity, need for lysis of adhesions and other factors, but was safely accomplished. Bhargav Gomez MD Electronically Signed By: BHARGAV GOMEZ MD 10/13/24 1522 PATIENT NAME: WILBERT KUO OPERATIVE REPORT DATE OF : 76 REPORT #: [id number] PHYSICIAN: BHARGAV GOMEZ MD PCP: MARK ELDER MD REPORT IS CONFIDENTIAL AND NOT TO BE RELEASED WITHOUT AUTHORIZATION [facility] [address] [address] Signed /VANI /[id number] cc: MD Valente Liang MD Copies: BEN DAMON MD, MICHAEL MD ~ Electronically Signed By: BHARGAV GOMEZ MD 10/13/24 1522 PATIENT NAME: WILBERT KUO OPERATIVE REPORT DATE OF : 76 REPORT #: [id number] PHYSICIAN: BHARGAV GOMEZ MD PCP: MARK ELDER MD REPORT IS CONFIDENTIAL AND NOT TO BE RELEASED WITHOUT AUTHORIZATION
--- NOTE | 2024-10-13 15:22 | HP ---
[facility] [address], [place] [address] Signed ADMISSION DATE: 10/12/2024 REASON FOR ADMISSION: Acute appendicitis. HISTORY OF PRESENT ILLNESS: This morbidly obese (124 kg), BMI 44.2, white woman presents to the emergency room earlier in the day and evaluated by Dr. Valente Leiva, emergency room physician with complaints of right-sided abdominal pain. She was transported by ambulance. She had been in [facility] with a 2-day history of dysuria, frequency, and right lower abdominal pain. She has had nausea, but no vomiting and a temperature of a 102 a few days ago. Though, she had no rigors, she did "feel cold." The patient has had history of prior urinary tract infections, but no pyelonephritis. 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 Notes reviewed from Dr. Ben Damon on July 14, 2024 for drainage of soft tissue abscesses. Operative report reviewed from July 15, 2024 confirmed left proximal inner thigh abscess for which deep wound cultures and sharp debridement was undertaken. Today, upon presentation, she has significant right-sided abdominal pain. Her evaluation included a CBC, which showed an elevated white count of 12.4, and a CT scan showing high probability of early appendicitis. There is a fecalith at the base of the appendix. Her urinalysis is abnormal with increased blood and some white cells it is noted. Additionally, she has an elevated creatinine of 2.12. Electrolytes otherwise normal. Sodium 133, her glucose was elevated at 343. Beta HCG was negative. The patient currently is feeling reasonably well. She does not have an IV running, though an IV is placed in her left arm. Fluids will be initiated promptly at this point. REVIEW OF SYSTEMS: She denies any shortness of breath or chest pain. She has had no dysphagia or dysuria. She does have a PureWick catheter in place, which appears to have clear urine. PHYSICAL EXAMINATION: GENERAL: Pleasant white woman who is not systemically toxic. HEENT: Mucous membranes are dry. Trachea is midline. CHEST: Shows normal respiratory excursion. Pulses regular. ABDOMEN: Impressively obese with a very large abdominal wall pannus. She has marked tenderness in the right lower abdomen. EXTREMITIES: Show no clubbing, cyanosis, or edema. She has a few excoriated skin Electronically Signed By: BHARGAV GOMEZ MD 10/13/24 1522 PATIENT NAME: WILBERT KUO HISTORY AND PHYSICAL DATE OF : 76 REPORT #: [id number] PHYSICIAN: BHARGAV GOMEZ MD PCP: MARK ELDER MD REPORT IS CONFIDENTIAL AND NOT TO BE RELEASED WITHOUT AUTHORIZATION [facility] [address], [place] [address] Signed lesions without sign of undrained purulence. LABORATORY STUDIES: As noted including a white count of 12.4, hematocrit 33.5, and platelets 414,000. Chem profile with creatinine of 2.12, glucose 343. Liver enzymes normal. Beta HCG negative. Urinalysis; specific gravity 1.020, RBCs 12-20 per high-power field, urine white cells 4-6 per high-power field, glucose greater than 1000, and squames 2+. ASSESSMENT: The patient has clinical and radiographic evidence of acute appendicitis in the setting of likely chronic recurrent urinary tract infection. She has already been started on meropenem antibiotic. I discussed the pathophysiology of the problem with the patient and I have recommended consideration of appendectomy, preferably by laparoscopic approach. Her significant obesity may make this challenging and that she may require an open operation. The risk of bleeding, infection, need for open surgery, need for other indicated procedures and so forth was all reviewed with her, she understands and wishes to proceed. We will initiate IV fluids as appropriate to give some level of fluid resuscitation anticipating operation soon. MD ADRY Garay/SHAMIKAL /[id number] cc: MD Ben Asif MD Michael Frommlet, MD Copies: BEN DAMON MD Electronically Signed By: BHARGAV GOMEZ MD 10/13/24 1522 PATIENT NAME: WILBERT KUO HISTORY AND PHYSICAL DATE OF : 76 REPORT #: [id number] PHYSICIAN: BHARGAV GOMEZ MD PCP: MARK ELDER MD REPORT IS CONFIDENTIAL AND NOT TO BE RELEASED WITHOUT AUTHORIZATION [address] [address] Signed FROMVALENTE RUEDA MD ~ Electronically Signed By: BHARGAV GOMEZ MD 10/13/24 1522 PATIENT NAME: WILBERT KUO HISTORY AND PHYSICAL DATE OF : 76 REPORT #: [id number] PHYSICIAN: BHARGAV GOMEZ MD PCP: MARK ELDER MD REPORT IS CONFIDENTIAL AND NOT TO BE RELEASED WITHOUT AUTHORIZATION
--- NOTE | 2024-10-13 15:23 | NUR ---
PATIENT AGREEABLE TO SOME MOVEMENT. PATIENT TAKES APPROXIMATELY 10 MINUTES TO MOVE HERSELF TO SIT ON THE EDGE OF THE BED. AT THE EDGE OF BED PATIENT REPORTS HER PAIN IS NOW 10/10, PRN PAIN MEDICATION ADMINISTERED. PATIENT REQUESTS TO SIT ON THE EDGE OF HER BED FOR AWHILE. CPOX REMOVED PER POLICY, PATIENT SPO2 HAS SUSTAINED>98% ON ROOM AIR ALL DAY. BED TABLE MOVED IN FRONT OF PATIENT, CALL LIGHT IS AT HER SIDE. PATIENT REPORTS FEELING COMFORTABLE AT THE EDGE OF BED. NO OTHER REQUESTS, CALL LIGHT AND PERSONAL BELONGINGS IN REACH.
--- NOTE | 2024-10-13 16:15 | NUR ---
PATIENT WAS A SBA WITH THEIR CANE. THEY ARE CURRENTLY SITTING UP IN THE RECLINER WITH CALL LIGHT AND PERSONAL ITEMS WITHIN REACH.
[2024-10-13] MEDS ORDERED: levoFLOXacin 750 MG TAB PO SCH (17:00)
--- NOTE | 2024-10-13 17:50 | NUR ---
PATIENT REMAINS UP IN CHAIR AT THIS TIME. HEAT PACK TO HER RIGHT SHOULDER. NO REQUESTS OR COMPLAINTS AT THIS TIME, CALL LIGHT AND PERSONAL BELONGINGS IN REACH.
--- NOTE | 2024-10-13 19:33 | NUR ---
REPORT RECEIVED FROM DAY SHIFT RN. PATIENT RESTING IN CHAIR WITH VISITOR IN ROOM. DENIES NEEDS AT THIS TIME. CALL LIGHT IN REACH.
[2024-10-13] MEDS ORDERED: GABAPENTIN 300 MG CAP PO SCH (21:00)
[2024-10-13] MEDS ORDERED: ATORVASTATIN 40 MG TAB PO SCH (21:00)
--- NOTE | 2024-10-13 21:27 | NUR ---
SOFTWARE TOOLS BUILD ENGINEER OBTAINED VITALS AND I&O. PUREWICK CANNISTER EMPTIED. PT STATES NO NEEDS AT THIS TIME AND WOULD LIKE TO STAY IN CHAIR UNTIL SHE IS READY TO GO TO BED. CALL LIGHT WITHIN REACH.
--- NOTE | 2024-10-13 22:13 | NUR ---
PATIENT RESTING IN CHAIR. BS OBTAINED AND RECORDED. SCHEDULED MEDICATION ADMINISTERED. PRN PAIN MEDICATION ADMINISTERED FOR 8/10 ABD PAIN. PATIENT TRANSFERRED FROM CHAIR TO BED USING 1P SBA. NEW PUREWICK AND BREIF PLACED AFTER MIRYAM CARE PROVIDED. ASSESSMENT COMPLETE. ABD INCISION SITES C/D/I WITH MINIMAL DRY DRAINAGE. PAIENT REFUSING TO WEAR SCDs AT THIS TIME. PATIENT HAS NO FURTHER NEEDS. CALL LIGHT IN REACH.
--- NOTE | 2024-10-14 01:05 | NUR ---
PATIENT RESTING IN BED. DENIES NEEDS AT THIS TIME. CALL LIGHT IN REACH.
--- NOTE | 2024-10-14 01:39 | NUR ---
ROUNDING ON PATIENT. PATIENT REQUESTING HOT PACK FOR R SHOULDER PAIN THAT SHE SAYS IS CHRONIC. HOT PACK PROVIDED IN A PILLOWCASE. PATIENT HAS NO FURTHER NEEDS. CALL LIGHT IN REACH.
--- NOTE | 2024-10-14 02:23 | NUR ---
cup of ice chips provided per pt request, mateo'keena by primary rn.
--- NOTE | 2024-10-14 03:42 | NUR ---
[facility] RESMED UNIT WAS PULLED AND ORDER DISCONTINUED BECAUSE RT TRIED SEVERAL DIFFERENT MASKS WITH WILBERT AND SHE WAS UNABLE TO TOLERATE A NASAL MASK, FULL FACE MASK, OR UNDER THE NOSE OVER THE MOUTH FULL FACE MASK.
[2024-10-14 04:33] VITALS: BP 137/71
--- NOTE | 2024-10-14 04:43 | NUR ---
NEW BAG IV FLUID INFUSING PER ORDER. SCHEDULED MEDICATION ADMINSITERED. VS AND I&Os OBTAINED AND RECORDED. ASSESSMENT COMPLETE. x4 INCISION SITES C/D/I WITH MINIMAL DRY DRAINAGE. PATIENT DENIES FURTHER NEEDS AT THIS TIME. CALL LIGHT IN REACH.
--- NOTE | 2024-10-14 07:20 | NUR ---
REPORT RECEIVED FROM GREG RODRIGEZ. PATIENT RESTING IN BED, OPENS EYES WHEN THIS RN ENTERS AND BEGINS CONVERSING ABOUT HER NIGHT. CPOX AT BEDSIDE. PUREWICK DRAINING TO SUCTION CANNISTER. IVF INFUSING WNL. PATIENT HAS NO REQUESTS, CALL LIGHT AND PERSONAL BELONGINGS IN REACH.
[2024-10-14 08:30] VITALS: BP 102/85
--- NOTE | 2024-10-14 08:42 | NUR ---
MEDICATION ADMINISTERED, SEE MAR. ASSESSMENT COMPLETE. PATIENT IS SITTING UP IN HER BED WITH HER BREAKFAST PLATE IN HER LAP, EATING BREAKFAST AND WATCHING TELEVISION. PATIENT DOES NOT CURRENTLY COMPLAIN OF PAIN, DENIES NAUSEA. BOWEL TONES ARE ACTIVE IN ALL QUADRANTS, PATIENT DENIES TENDERNESS WITH PALPATION. 4 LAP SITES NOTED WITHOUT REDNESS OR WARMTH, STERI-STRIPS IN PLACE WITH A SCANT AMOUNT OF DRIED SEROSANGUINOUS DRAINAGE. THE STERI-STRIPS TO THE UMBILICAL SITE ARE TRIMMED AT THE EDGES WHERE THEY HAVE BEGUN TO CURL. THE ADHESIVE SURGICAL DRESSING ON THE WOUND IN THE PATIENT'S LLQ HAS A SMALL AMOUNT OF DARK RED SHADOWING NOTED TO BE INCREASED FROM YESTERDAY. THE BOTTOM OF THE DRESSING HAS COME LOOSE AND THERE IS A SCANT AMOUNT OF SEROSANGUINOUS DRAINAGE NOTED BENEATH THE DRESSING. PATIENT DENIES DISCOMFORT IN THIS AREA. LUNG SOUNDS ARE DIMINISHED IN BLL. PATIENT SPO2 SUSTAINS>98%, CPOX REMOVED PER PATIENT'S REQUEST. PATIENT IS ON ROOM AIR, DENIES SOB OR CHEST DISCOMFORT. IVF INFUSING TO L AC WNL. PATIENT CONTINUES EATING BREAKFAST. NO OTHER REQUESTS, CALL LIGHT AND PERSONAL BELONGINGS IN REACH.
[2024-10-14 09:44] VITALS: BP 116/70
--- NOTE | 2024-10-14 09:48 | NUR ---
PATIENT IS IN BED AT THIS TIME. CEMENTER MACHINE JOINER CHARTED VITALS AND I&O'S, GOT FRESH ICE WATER. CALL LIGHT WITH IN REACH AND NOTHING ELSE NEEDED AT THIS TIME.
[2024-10-14 09:55] VITALS: BP 116/70
[2024-10-14] MEDS ORDERED: ACETAMINOPHEN500 MG PO (10:02)
[2024-10-14] MEDS ORDERED: LEVOFLOXACIN750 MG PO (10:02)
[2024-10-14] MEDS ORDERED: IBUPROFEN600 MG PO (10:02)
[2024-10-14] MEDS ORDERED: OXYCODON-ACETA1 EAC2 PO (10:02)
--- NOTE | 2024-10-14 10:50 | NUR ---
Spoke with Heather. She did speak with Dr. Curry this am. She states she will dc after 3 pm. Her friend will drive her but does not get off work until then. Dr declined to write and order for a wc as he would like her up and walking also did not feel she needed HH at this time. Discussed with pt she could speak with her pcp about this. She declined and does not want a fu appt with Dr. Harrell as she will see Dr. Curry. She states she has an appt with Dr. Harrell in December. Charge nurse notified.
[2024-10-14 13:36] VITALS: BP 109/61
--- NOTE | 2024-10-14 13:38 | NUR ---
PATIENT IS IN BED AT THIS TIME, DRYWALL CONTRACTOR CHARTED VITALS AND I&O'S, CHANGED PURELEROYCK, CHIDI AND BREIF. DRYWALL CONTRACTOR GOT FRESH ICE WATER AND ICE, CALL LIGHT WITH IN REACH AND NOTHING ELSE NEEDED AT THIS TIME.
--- NOTE | 2024-10-14 15:12 | NUR ---
PATIENT IN BED AT THIS TIME. THIS PRICE LISTER REMOVED PATIENT IV CATHETER IN LEFT ARM. CALL LIGHT WITHIN REACH, NO FURTHER NEEDS AT THIS TIME.
--- NOTE | 2024-10-14 15:15 | PATH ---
[facility] [address], [place] [address] Signed SPECIMEN(S): A APPENDIX SPECIMEN SOURCE: A. APPENDIX CLINICAL HISTORY: Acute appendectomy FINAL PATHOLOGIC DIAGNOSIS: Appendix, appendectomy: - Acute suppurative appendicitis with focal mucosal necrosis. JVR:anthony MICROSCOPIC EXAMINATION: Histologic sections of all submitted blocks are examined by light microscopy. These findings, together with the gross examination, support the pathologic diagnosis. GROSS DESCRIPTION: The specimen, labeled and designated "Kendell Guerrero, appy per the requisition," is received in formalin and consists of: Specimen: Appendix with mesoappendix. Dimensions: 10.6 x 1.2 x 1.1 cm. Serosa: Rivera-pink with areas of purulent material present. Defect: Not grossly identified. Inking: Staple line is inked Blue. Mucosa: Rivera-pink and pinpoint to slightly dilated. Fecalith: Not grossly identified. Additional: None. Fish Straightener sections are submitted in (A1). AA (under the direct supervision of a pathologist) The Gross Description was prepared using a voice recognition system. The report was reviewed for accuracy; however, sound-alike word errors, addition and/or deletions may occur. If there is any question about this report, please contact Client Services. PERFORMING LABORATORY: Technical component was performed by [facility], [address] [place] [id number] (CLIA# [id number]). Professional interpretation was performed by [facility], [address] [place] [address], [place] [address] (CLIA#: [id number]). PATIENT NAME: WILBERT GUERRERO PATHOLOGY DATE OF : 76 REPORT #: [id number] PHYSICIAN: [facility] PCP: MARK ELDER MD REPORT IS CONFIDENTIAL AND NOT TO BE RELEASED WITHOUT AUTHORIZATION [address] [address] Signed Diagnostician: Harshil Israel MD Pathologist Electronically Signed 10/14/2024 Copies: ~ PATIENT NAME: WILBERT GUERRERO PATHOLOGY DATE OF : 76 REPORT #: [id number] PHYSICIAN: [facility] PCP: MARK ELDER MD REPORT IS CONFIDENTIAL AND NOT TO BE RELEASED WITHOUT AUTHORIZATION
[2024-10-14] MEDS ORDERED: MAGNESIUM OXID400 M1 PO (21:11)
--- NOTE | 2024-10-16 12:59 | DS ---
[facility] [address], [place] [address] Signed ADMISSION DATE: 10/12/2024 DISCHARGE DATE: 10/14/2024 REASON FOR ADMISSION: This morbidly obese 44-year-old white woman has numerous medical problems. She had been discharged from a snf in June, now living at home again. She presented to the emergency room with abdominal pain, found to have a recurrent urinary tract infection, but as well significant tenderness on abdominal palpation. A CT scan was performed, which showed high probability of acute appendicitis in addition to incidental urinary tract infection. She is admitted for further evaluation and care. PERTINENT PHYSICAL EXAMINATION: GENERAL: Showed a very morbidly obese white woman with an enormous abdominal wall pannus. LABORATORY DATA: White count was 12.4, hematocrit 33.5, platelets 414,000. Creatinine was 2.12, glucose 343. Liver enzymes were normal. Beta HCG negative, RBCs were 12-20 per high-power field, white cells 46 per high-power field. Glucose level greater than 1000, squames 2+. HOSPITAL COURSE: She was fluid resuscitated, given broad-spectrum antibiotic meropenem and taken to surgery where she underwent laparoscopic appendectomy. Given her impressive abdominal obesity and prior interventions, this was a prolonged and challenging operation, but was accomplished without known complication. The appendix was quite markedly inflamed, but not perforated. Postoperatively, she had uneventful recovery and by day of discharge, she is ambulating well, tolerating regular diet and having no particular complaints of pain. DISCHARGE MEDICINES: 1. Levaquin 750 mg p.o. daily #10 for urinary tract infection. 2. Ibuprofen 600 mg p.o. q.6 hours p.r.n. pain #30, refill one. 3. Percocet 7.5/325 1-2 p.o. q.6 hours p.r.n. pain #10. 4. Tylenol 500 mg two tablets p.o. q.6 hours as needed for lesser pain, #60. 5. She will resume her usual medicines of metoprolol 25 mg p.o. b.i.d., atorvastatin 40 mg p.o. at bedtime, gabapentin 300 mg p.o. at bedtime, nitroglycerin sublingual 0.4 mg as needed for chest pain. 6. Albuterol inhaler two puffs q.6 hours as needed for shortness of breath, insulin glargine 100 units/mL 20 units subcutaneously b.i.d., Synthroid 25 mcg p.o. daily, Lasix Electronically Signed By: BHARGAV GOMEZ MD 10/16/24 1259 PATIENT NAME: WILBERT KUO DISCHARGE SUMMARY DATE OF : 76 REPORT #: [id number] PHYSICIAN: BHARGAV GOMEZ MD PCP: MARK ELDER MD REPORT IS CONFIDENTIAL AND NOT TO BE RELEASED WITHOUT AUTHORIZATION [address] [address] Signed 20 mg p.o. daily, insulin lispro Quick Pen 100 units/mL of sliding scale based on blood sugar results and multivitamin one tablet p.o. daily. FOLLOWUP PLAN: She is return to see me in approximately a month. She is to ambulate on a daily basis and is permitted to shower at this point. She should leave Steri-Strips on until they curl up on their own. DISCHARGE DIAGNOSES: 1. Acute suppurative appendicitis, status post laparoscopic appendectomy, prolonged complicated difficult. 2. Extreme morbid obesity with large abdominal pannus. 3. Diabetes mellitus. 4. Hypertension. 5. Chronic pain. 6. Hypothyroidism. MD ADRY Garay/SHAMIKAL /[id number] cc: Dr. Mark Elder Copies: ~ Electronically Signed By: BHARGAV GOMEZ MD 10/16/24 1259 PATIENT NAME: WILBERT KUO DISCHARGE SUMMARY DATE OF : 76 REPORT #: [id number] PHYSICIAN: BHARGAV GOMEZ MD PCP: MARK ELDER MD REPORT IS CONFIDENTIAL AND NOT TO BE RELEASED WITHOUT AUTHORIZATION
== END 2024-10-14 15:33 | disposition home or self-care (01) ==
LOC: ED 09:16 → MS 09:17 → ED 14:03 → MS 10-14 15:33
PROVIDERS: Emergency Medicine; ADMIT Surgery; ATTEND Surgery
DX: K35.890 Other acute appendicitis without perforation or gangrene (principal); K66.0 Peritoneal adhesions (postprocedural) (postinfection); E66.01 Morbid (severe) obesity due to excess calories; Z68.41 Body mass index [BMI] 40.0-44.9, adult; N39.0 Urinary tract infection, site not specified; E65 Localized adiposity; E11.9 Type 2 diabetes mellitus without complications; I11.0 Hypertensive heart disease with heart failure; I50.9 Heart failure, unspecified; E03.9 Hypothyroidism, unspecified; G89.29 Other chronic pain; I25.10 Atherosclerotic heart disease of native coronary artery without angina pectoris; I25.2 Old myocardial infarction; Z79.890 Hormone replacement therapy; Z79.4 Long term (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; Z79.84 Long term (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 of oral hypoglycemic drugs; Z79.899 Other long term (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
CPT/HCPCS: 00840; 36415; 51798; 74176; 80048; 80053; 81001; 84703; 85025; 88304; 94660; 94762; 96365; 96372; 96375; 99285-25; A9270; G0378; J0131; J1100; J1171; J1644; J1815; J2003; J2185; J2405; J2704; J3010; J3475; J3490; J7121

== ENCOUNTER 2024-10-14 18:53 | Emergency (ER) | payer OTHER ==
[~2024-10-14] VITALS: Ht 167.6 cm; Wt 131.2 kg
[~2024-10-14 18:53] MED LIST changes: +LEVOFLOXACIN750 MG PO; +MULTI VITAMIN1 EACH PO; +OXYCODON-ACETA1 EAC2 PO
[2024-10-14 20:07] LABS: BASOPHILS 0.3 % (0-2); EOSINOPHILS 1.4 % (0-6); HEMATOCRIT 28.4 % (35.0-50.0); HEMOGLOBIN 9.5 g/dL (12.0-18.0); LYMPHOCYTES 15.8 % (24-44); MCH 25.8 (27-36); MCHC 33.5 g/dl (30-36); MONOCYTES 4.5 % (0-12); PLATELET COUNT 416 K/uL (140-440); RBC 3.69 M/ul (4.3-5.7)
[2024-10-14 20:25] LABS: ALBUMIN 1.2 g/dL (3.4-5.0); ALBUMIN/GLOBULIN RATIO 0.22 (1.1-2.4); ANION GAP 13.3 (7-21); BILIRUBIN, TOTAL 0.3 mg/dL (0.2-1.0); BUN/CREATININE RATIO 19.04 (6.0-28.6); CALCIUM 8.4 mg/dL (8.5-10.1); CREATININE, SERUM 1.89 mg/dL (0.55-1.02); MAGNESIUM 1.7 mg/dL (1.8-2.4); POTASSIUM 4.3 mmol/L (3.5-5.1); PROTEIN, TOTAL 6.6 g/dL (6.4-8.2)
[2024-10-14] MEDS ORDERED: MAGNESIUM SULFATE 2 GM/50 ML BAG IV ONE (20:45)
[2024-10-14] MEDS ORDERED: SODIUM CHLORIDE 0.9% 500 ML IV PRN (20:45)
[2024-10-14] MEDS ORDERED: MAGNESIUM OXID400 M1 PO (21:11)
[2024-10-14 21:45] VITALS: BP 158/83
== END 2024-10-14 21:55 | disposition home or self-care (01) ==
LOC: ED 18:53
PROVIDERS: Family Medicine
DX: E83.42 Hypomagnesemia (principal); I11.0 Hypertensive heart disease with heart failure; I50.9 Heart failure, unspecified; E11.9 Type 2 diabetes mellitus without complications; J45.909 Unspecified asthma, uncomplicated; F17.200 Nicotine dependence, unspecified, uncomplicated; Z88.8 Allergy status to other drugs, medicaments and biological substances; Z88.9 Allergy status to unspecified drugs, medicaments and biological substances; Z88.5 Allergy status to narcotic agent; Z88.2 Allergy status to sulfonamides
CPT/HCPCS: 36415; 80053; 83735; 85025; 96365; 99284-25; J3475; J7040

== ENCOUNTER 2025-03-27 16:20 | Emergency (ER) | payer OTHER ==
[~2025-03-27] VITALS: Ht 167.6 cm; Wt 129.0 kg
[~2025-03-27 16:20] MED LIST changes: +MAGNESIUM OXID400 M1 PO
[2025-03-27 16:49] LABS: BASOPHILS 0.7 % (0.1-1.2); EOSINOPHILS 3.2 % (0.7-5.8); LYMPHOCYTES 30.7 % (19.3-51.7); MCH 27.4 PG (25.6-32.2); MCHC 33.0 g/dL (32.2-35.5); MCV 83.2 fL (79.4-94.8); MONOCYTES 4.0 % (4.7-12.5); NEUTROPHILS 61.1 % (34.0-71.1); RBC 4.52 M/uL (3.93-5.22)
[2025-03-27 18:13] LABS: ALT (SGPT) 20.0 U/L (14-59); AST (SGOT) 11.0 U/L (15-37); GLOMERULAR FILTRATION RATE,EST 29.0 mL/min (>60); PROTEIN, TOTAL 6.2 g/dL (6.4-8.2); UREA NITROGEN 32.0 mg/dL (7-18)
[2025-03-27 19:32] LABS: BLOOD/HGB, URINE MODERATE (Negative); KETONE, URINE NEGATIVE (Negative); LEUK ESTERASE, URINE NEGATIVE (negative); NITRITE, URINE NEGATIVE (negative)
[2025-03-27 19:42] LABS: BACTERIA, URINE RARE /hpf (negative); CASTS, URINE GRANULAR 1+ \\lpf; CRYSTALS, URINE NONE SEEN (0-1+); EPITHELIAL CELLS, URINE SQUAMOUS 1+ /lpf (0-1+); REFLEX CULTURE, URINE No (No)
[2025-03-27] MEDS ORDERED: FLUCONAZOLE150 MG PO (20:00)
[2025-03-27] MEDS ORDERED: DOXYCYCLINE HYCLATE 100 MG HOME.PACK PO ONE (20:15)
[2025-03-27 20:23] VITALS: BP 138/77
== END 2025-03-27 20:24 | disposition home or self-care (01) ==
LOC: ED 16:20
PROVIDERS: Emergency Medicine
DX: L02.214 Cutaneous abscess of groin (principal); L03.314 Cellulitis of groin; L98.8 Other specified disorders of the skin and subcutaneous tissue; E11.9 Type 2 diabetes mellitus without complications; I25.10 Atherosclerotic heart disease of native coronary artery without angina pectoris; J44.89 Other specified chronic obstructive pulmonary disease; I25.2 Old myocardial infarction; I11.0 Hypertensive heart disease with heart failure; I50.9 Heart failure, unspecified; F17.200 Nicotine dependence, unspecified, uncomplicated; E66.01 Morbid (severe) obesity due to excess calories; Z68.42 Body mass index [BMI] 45.0-49.9, adult; Z86.73 Personal history of transient ischemic attack (TIA), and cerebral infarction without residual deficits; Z91.018 Allergy to other foods; Z91.040 Latex allergy status; Z88.8 Allergy status to other drugs, medicaments and biological substances; Z79.890 Hormone replacement therapy; Z79.4 Long term (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; Z79.899 Other long term (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
CPT/HCPCS: 36415; 73700; 74176; 80053; 81001; 82800; 83036; 85025; 99284-25; A9270; Q9967